=== PATIENT | female | born 1960 | race Caucasian/White ===

== ENCOUNTER 2016-09-01 09:01 | Emergency (ER) | payer OTHER ==
[~2016-09-01] VITALS: Ht 167.6 cm; Wt 104.3 kg
[2016-09-01] MEDS ORDERED: FENO50CA PO (09:27)
[2016-09-01] MEDS ORDERED: TRAM50TA2 PO (09:27)
[2016-09-01] MEDS ORDERED: ATOR40TA PO (09:27)
[2016-09-01] MEDS ORDERED: MELO7.5T6 PO (09:27)
[2016-09-01] MEDS ORDERED: AZEL0.055 (09:27)
[2016-09-01] MEDS ORDERED: MAGN400C2 PO (09:27)
[2016-09-01] MEDS ORDERED: PANT40TA2 PO (09:27)
[2016-09-01] MEDS ORDERED: ZONI100C2 PO (09:27)
[2016-09-01] MEDS ORDERED: PAME25CA PO (09:27)
[2016-09-01] MEDS: ALBUTEROL 90 MCG/ACT 8GM HFA INHALER INH ONE (10:37)
--- NOTE | 2016-09-01 10:47 | REP ---
Chest two views HISTORY: Cough Comparison: 09/15/2015 The lungs are clear. There is blunting of the left costophrenic angle due to pleural thickening. The heart is normal in size. The pulmonary vasculature is normal in appearance. The bony structure is intact. IMPRESSION: No acute disease. Signed by Fredy Moreira MD 09/01/2016 10:39 A
[2016-09-01] MEDS ORDERED: TESS100C PO (11:32)
[2016-09-01 11:38] VITALS: BP 125/81
== END 2016-09-01 11:50 | disposition home or self-care (01) ==
LOC: M ED 09:46
DX: J20.9 Acute bronchitis, unspecified (principal); Z79.899 Other long term (current) drug therapy; Z87.891 Personal history of nicotine dependence; I10 Essential (primary) hypertension; E78.00 Pure hypercholesterolemia, unspecified; K21.9 Gastro-esophageal reflux disease without esophagitis; M19.90 Unspecified osteoarthritis, unspecified site

== ENCOUNTER 2017-02-09 11:59 | Emergency (ER) | payer OTHER ==
[~2017-02-09] VITALS: Ht 167.6 cm; Wt 100.0 kg
[~2017-02-09 11:59] MED LIST: ATOR40TA75 PO; AZEL0.055; FENO50CA PO; MAGN400C2 PO; MELO7.5T7 PO; PAME25CA PO; PANT40TA2 PO; TESS100C PO; TRAM50TA2 PO; ZONI100C2 PO
[2017-02-09] MEDS ORDERED: ONDANSETRON 4MG/2ML VIAL (J2405) IV ONE (14:15)
[2017-02-09] MEDS ORDERED: MORPHINE 4 MG/ML 1ML SYRINGE IV ONE (14:15)
[2017-02-09] MEDS ORDERED: NS 1,000 ML IV ONE (14:15)
[2017-02-09 14:21] LABS: MICROSCOPIC INDICATED? MAN YES (NO)
[2017-02-09 14:22] LABS: BACTERIA, URINE MOD AMOUNT; HYALINE CAST, URINE NONE SEEN /lpf (0-1); MICROSCOPIC EXAM PERFORMED; RBC, URINE 0-1 /hpf (0-3); SQUAMOUS EPITHELIAL CELL URINE SMALL AMOUNT /hpf (SMALL AMT)
[2017-02-09 15:11] LABS: BASO # 0.1 K/mm3 (0.0-0.2); BASO % 0.5 % (0.0-1.0); EOS # 0.1 K/mm3 (0.0-0.50); EOS % 0.8 % (0.0-3.0); LARGE UNSTAINED CELL # 0.1 K/mm3 (0.0-0.4); LYMPH # 2.9 K/mm3 (1.5-4.5); LYMPH % 19.3 % (24.0-44.0); MEAN CORPUSCULAR HEMOGLOBIN 28.9 pg (27.0-33.0); MEAN CORPUSCULAR HGB CONC 34.1 g/dl (32.0-36.5); MEAN CORPUSCULAR VOLUME 84.8 fl (80.0-96.0); MONO % 6.9 % (0.0-5.0); NEUTROPHILS # 10.3 K/mm3 (1.8-7.7); NEUTROPHILS % 71.4 % (36.0-66.0); PLATELET COUNT, AUTOMATED 452 k/mm3 (150-450); RED CELL DISTRIBUTION WIDTH 13.5 % (11.5-14.5); WHITE BLOOD COUNT 14.4 K/mm3 (4.0-10.0)
[2017-02-09 15:13] LABS: ALBUMIN 3.8 GM/DL (3.2-5.2); ALBUMIN/GLOBULIN RATIO 1.03 (1.00-1.93); ALKALINE PHOSPHATASE 92 U/L (45-117); ALT/SGPT 25 U/L (12-78); AMYLASE 50 U/L (25-115); ANION GAP 9 MEQ/L (8-16); AST/SGOT 16 U/L (15-37); BILIRUBIN,DIRECT 0.1 MG/DL (0.0-0.2); BILIRUBIN,TOTAL 0.4 MG/DL (0.2-1.0); BLOOD UREA NITROGEN 12 MG/DL (7-18); CALCIUM LEVEL 9.6 MG/DL (8.5-10.1); CARBON DIOXIDE LEVEL 23 MEQ/L (21-32); CHLORIDE LEVEL 106 MEQ/L (98-107); CREATININE FOR GFR 1.01 MG/DL (0.55-1.02); GLOMERULAR FILTRATION RATE > 60.0 (>51); GLUCOSE, FASTING 102 MG/DL (70-105); POTASSIUM SERUM 4.3 MEQ/L (3.5-5.1); SODIUM LEVEL 138 MEQ/L (136-145); TOTAL PROTEIN 7.5 GM/DL (6.4-8.2)
[2017-02-09] MEDS ORDERED: ISOVUE-370 76% 100ML VIAL (Q9967) As Ordered ONE (15:20)
[2017-02-09] MEDS ORDERED: METR1TAB66 PO (18:41)
[2017-02-09] MEDS ORDERED: ONDA4TAB5 PO (18:41)
[2017-02-09] MEDS ORDERED: CIPR500T3 PO (18:41)
[2017-02-09] MEDS ORDERED: PERC5TAB12 PO (18:41)
[2017-02-09 18:51] VITALS: BP 155/77
--- NOTE | 2017-02-10 09:51 | REP ---
CT abdomen pelvis with IV but without oral contrast: History: Left lower abdominal pain. No comparison CT studies. CT contrast dose: 100 mL of intravenous Isovue 370. CT findings: Preliminary digital biometric screener radiograph demonstrates clips in right upper quadrant of the abdomen. The lung bases are clear. The liver shows mild diffuse fatty infiltration. There is a low-density area 3.5 cm in greatest diameter in the dome of the liver right hepatic lobe. This may reflect focal fat deposition or conceivably be a low density liver lesion such as hemangioma. No other focal liver lesion is seen. The common bile duct is somewhat dilated post cholecystectomy measuring 1.8 cm in diameter. Minimal intrahepatic biliary ductal dilation is observed. Spleen is unremarkable. No adrenal lesion is seen. Pancreas shows no abnormality. There are clips adjacent to the upper stomach. The kidneys enhance symmetrically are morphologically intact. No retroperitoneal mass or adenopathy is seen. There is a ventral hernia. There are two components. The larger more cephalic ventral hernia defect transmits a loop of unobstructed transverse colon through a defect in the anterior abdominal wall which measures 4.2 cm in medial to lateral span by 2.4 cm in craniocaudal span. Below this to the left of midline at the level of the umbilicus, there is a second anterior abdominal wall defect which is smaller. This transmits a small quantity of abdominal fat and contains a 2 cm fluid collection. Two loops of small bowel are seen approaching this hernia defect but not extending through it. This smaller defect appears to measure 2.4 cm craniocaudal by 2.4 cm medial to lateral. In addition, there is diverticulosis in the descending colon with mural thickening and pericolonic streaking consistent with diverticulitis. No abscess or free air. Fibroid changes seen in the uterus. A pedunculated fibroid is seen projecting to the left adnexa. A normal appendix is seen. Urinary bladder is unremarkable. No ovarian abnormality is seen. Impression: 1. Acute diverticulitis affecting the distal descending colon without evidence of free air or abscess. 2. Complex ventral hernia. One component transmits unobstructed transverse colon loop. Caudal and to the left of the umbilicus is a smaller defect containing a small quantity of fluid with possible tethering of small bowel loops. 3. Post cholecystectomy. Dilated common bile duct post cholecystectomy 1.8 cm. 4. 3.5 cm low density lesion in the right lobe of the liver may be hemangioma or focal fatty deposit. Consider MRI evaluation of the liver. Signed by Gregorio Nayak MD 02/10/2017 10:07 A
--- NOTE | 2017-02-11 20:01 | ED PDOC ---
Post-Departure Follow-Up DR HAMEED FAXED FORMAL REPORT OF CT ABD/PELVIS FOR FU Francisco Cassidy MD Feb 11, 2017 20:01
[2017-04-11] MEDS ORDERED: DOCQ100C PO (08:13)
== END 2017-02-09 18:52 | disposition home or self-care (01) ==
LOC: M ED 11:59
DX: K57.80 Diverticulitis of intestine, part unspecified, with perforation and abscess without bleeding (principal); B95.7 Other staphylococcus as the cause of diseases classified elsewhere; K43.9 Ventral hernia without obstruction or gangrene; K76.9 Liver disease, unspecified; M54.5 Low back pain; E78.00 Pure hypercholesterolemia, unspecified; Z91.49 Other personal history of psychological trauma, not elsewhere classified; Z79.899 Other long term (current) drug therapy
CPT/HCPCS: 74177; 80048; 80076; 81000; 82150; 83690; 85025; 87040; 87077; 87186; 96374; 96375; 99283; J2405; Q9967

== ENCOUNTER 2017-04-25 06:11 | Day surgery (SDC) | payer OTHER ==
[~2017-04-25] VITALS: Ht 167.6 cm; Wt 100.2 kg
[~2017-04-25 06:11] MED LIST changes: +CIPR500T3 PO; +DOCQ100C PO; +METR1TAB66 PO; +ONDA4TAB5 PO; +PERC5TAB12 PO
[2017-04-25] MEDS ORDERED: LR 1,000 ML IV ONE (06:15)
[2017-04-25] MEDS ORDERED: LIDOCAINE 2% INJ 100 MG/5 ML SDV (FOR ANES.) As Ordered ONE (07:59)
[2017-04-25] MEDS ORDERED: MIDAZOLAM INJ 2 MG/2 ML VIAL (J2250) As Ordered ONE (07:59)
[2017-04-25] MEDS ORDERED: PROPOFOL 200 MG/20 ML VIAL As Ordered ONE (07:59)
[2017-04-25] MEDS ORDERED: NEOSTIGMINE 10 MG/10 ML VIAL (J2710) As Ordered ONE (07:59)
[2017-04-25] MEDS ORDERED: ROCURONIUM BROMIDE 50 MG/5 ML VIAL/SYRINGE As Ordered ONE (07:59)
[2017-04-25] MEDS ORDERED: fentaNYL 250 MCG/5 ML INJECTION (J3010) As Ordered ONE (07:59)
[2017-04-25] MEDS ORDERED: GLYCOPYRROLATE INJ 0.2 MG/ML 2 ML VIAL As Ordered ONE (07:59)
[2017-04-25] MEDS ORDERED: ONDANSETRON 4MG/2ML VIAL (J2405) As Ordered ONE (07:59)
[2017-04-25] MEDS ORDERED: METOCLOPRAMIDE INJ 10MG/2ML VIAL (J2765) As Ordered ONE (08:00)
[2017-04-25] MEDS ORDERED: HYDROmorphone HCL 2 MG/ML 1ML VIAL (J1170) As Ordered ONE (08:32)
[2017-04-25] MEDS ORDERED: BUPIVACAINE HCL 0.25% 30 ML VIAL As Ordered ONE (09:30)
[2017-04-25] MEDS ORDERED: BUPIVACAINE LIPOSOME/PF 1.3% 20 ML VIAL (13.3MG/ML)(EXPAREL) As Ordered ONE (10:00)
[2017-04-25] MEDS ORDERED: KETOROLAC 60 MG/2 ML VIAL (J1885) As Ordered ONE (10:09)
[2017-04-25] MEDS ORDERED: MORPHINE 10 MG/ML 1ML VIAL As Ordered ONE (10:53)
[2017-04-25] MEDS: MORPHINE 2 MG/ML 1ML SYRINGE IV PRN ×4 (10:57→21:13)
[2017-04-25] MEDS ORDERED: LR 1,000 ML IV SCH (11:00)
[2017-04-25] MEDS ORDERED: fentaNYL 100 MCG/2 ML INJECTION (J3010) IV PRN (11:00)
[2017-04-25] MEDS ORDERED: ONDANSETRON 4MG/2ML VIAL (J2405) IV PRN ×2 (11:00→15:30)
[2017-04-25] MEDS ORDERED: NORCO, ANEXSIA 5/325MG TABLET (HYDROcodone/ACETAMINOPHEN) As Ordered ONE (11:06)
[2017-04-25] MEDS: NORCO, ANEXSIA 5/325MG TABLET (HYDROcodone/ACETAMINOPHEN) PO PRN ×3 (11:10→23:41)
[2017-04-25] MEDS ORDERED: ACETAMINOPHEN TAB 650MG DOSE (2X325MG) PO PRN (11:15)
[2017-04-25] MEDS ORDERED: NORCO, ANEXSIA 5/325MG TABLET (HYDROcodone/ACETAMINOPHEN) PO ONE (13:30)
[2017-04-25] MEDS ORDERED: MORPHINE 2 MG/ML 1ML SYRINGE As Ordered ONE (14:15)
[2017-04-25] MEDS: MORPHINE 2 MG/ML 1ML SYRINGE IV SCH ×2 (14:20→14:40)
[2017-04-25] MEDS ORDERED: METOCLOPRAMIDE INJ 10MG/2ML VIAL (J2765) IV PRN (15:30)
[2017-04-25 16:45] VITALS: BP 135/66
[2017-04-25] MEDS: IBUPROFEN 400 MG TAB PO PRN ×2 (19:07→23:41)
[2017-04-25 20:00] VITALS: BP 117/60
[2017-04-26] VITALS: BP 108/58
[2017-04-26] MEDS: IBUPROFEN 400 MG TAB PO PRN ×4 (03:44→16:56)
[2017-04-26] MEDS: NORCO, ANEXSIA 5/325MG TABLET (HYDROcodone/ACETAMINOPHEN) PO PRN ×4 (03:45→16:56)
[2017-04-26 04:00] VITALS: BP 102/55
[2017-04-26 08:00] VITALS: BP 113/62
[2017-04-26 12:00] VITALS: BP 114/62
--- NOTE | 2017-04-26 15:13 | IPN ---
DATE: 04/26/2017 The patient is now postoperative day #1 from a laparoscopic repair of multiple ventral incisional hernias using a piece of Parietex mesh. She was kept overnight because of significant postoperative pain. She feels better today and has been getting by with occasional Cary for pain relief. Vital signs: The patient has been afebrile with a normal pulse and blood pressure. Intake and output: She is taking a diet well and has adequate urine output today. Physical exam shows that she is lying quietly on the hospital bed. Heart and lung exams are unremarkable. The abdomen is obese with bowel sounds present. The abdomen is soft without undue tenderness. Her incisions all appear to be clean and healing well with Steri-Strips in place. IMPRESSION: Is doing well postoperative day #1 from her laparoscopic surgery. PLAN: The patient will be discharged home. She was advised against any strenuous physical activity. She can take a diet as tolerated. She will be able to shower as desired. She was advised against any prolonged immersion or swimming for at least 5 days. She has a prescription for Cary that was sent to her pharmacy that she can take on an as-needed basis, but she was encouraged to see if she could get by with [id number] medications. She is to call the office for any problems and otherwise followup at her scheduled postoperative visit.
[2017-04-26 16:00] VITALS: BP 126/69
--- NOTE | 2017-04-27 00:24 | ECGEPIP ---
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 No significant changes. L[place] is now normal. Electronically Signed On 04-27-2017 0:23:59 EST by Theo Jade
--- NOTE | 2017-04-27 07:13 | RO ---
DATE OF PROCEDURE: 04/25/2017 PREOPERATIVE DIAGNOSIS: Incarcerated ventral incisional hernia. POSTOPERATIVE DIAGNOSIS: Multiple incarcerated ventral incisional hernias with extensive adhesions. PROCEDURE PERFORMED: Laparoscopic repair of multiple ventral incisional hernias with 15 cm Parietex patch with extensive lysis of adhesions. SURGEON: Dr. Levi Henry TREE SPECIALIST: Dr. Donaldson ANESTHESIA: General. INDICATIONS FOR PROCEDURE: The patient is a 56-year-old woman who has previously undergone an upper abdominal incision for an open cholecystectomy and also had an upper midline incision for a hiatal hernia with subsequent complications. She developed a hernia through the midline scar apparently with a loop of bowel entrapped. She is now for laparoscopic and possible open repair of her ventral incisional hernia with mesh. OPERATIVE PROCEDURE: The patient was placed under general endotracheal anesthesia. The patient's abdomen was prepped and draped in a sterile fashion. 0.25% Marcaine was infiltrated at each of the trocar sites prior to insertion. A short incision was made in the right upper quadrant approximately at the level of the fascial defect. A Veress needle was inserted and after a positive hanging drop test the abdomen was inflated with carbon dioxide gas. A 5 mm port was placed over a 5 mm 30 degrees scope and advanced through the abdominal wall without difficulty. On entering the abdomen, the patient was noted to have significant adhesions of fibrofatty tissue to the anterior abdominal wall. It was possible to obtain a view inferiorly. A second 5 mm port was placed in the right lower quadrant and the camera was shifted to this area. A third 5 mm trocar was placed. This was also on the right side of the abdomen. Using a harmonic scalpel, extensive adhesions of the omentum to the anterior abdominal wall were divided. In the left midabdomen, there were a few loops of small bowel that were adherent to the anterior abdominal wall and these adhesions were also lysed and the bowel freed. As dissection proceeded to the midline, the patient was noted to have several approximately midline fascial defects with some entrapped fat. The fatty tissue was reduced into the abdomen as thoroughly as possible. Dissection toward the area of the patient's known hernia revealed a piece of bowel, apparently the transverse colon, up within the hernia. This was dissected free and reduced into the abdomen. This defect appeared to be approximately 3 cm in diameter. Additional dissection yielded another defect somewhat smaller above and to the left of the major fascial defect. There were also a few smaller areas noted. Once I had cleared the anterior abdominal wall of all of the adhesions an approximately 5-6 cm transverse incision was made over the largest fascial defect. This was deepened through the subcutaneous tissue. The hernia sac was identified and dissected free from surrounding subcutaneous tissues and removed at the level of the fascia. It was then possible to palpate through the main fascial defect. Inferior to this there were several weak areas close to the main defect. There was a shallow defect further inferior and to the left. The previously noted additional defect above and to the left of the main one was palpable and this was perhaps a centimeter and half in diameter with sound surrounding fascia. I dissected through the subcutaneous tissues at the level of the fascia to reach the defect above and to the left and this was closed with several interrupted simple sutures of #0 Ethibond. Measurements were taken and it appeared that a 15 cm patch would cover all of the palpable and visible defects. This was marked along the midline of the mesh. A suture of #0 Ethibond was placed at the midline of the largest fascial defect. In taking this suture through both sides of the defect, a small bite was taken of the underlying mesh. This was positioned to tack the mesh in the right upper corner of the mesh so that it would be positioned over the main defect and all surrounding defects as well. Several additional Ethibond sutures were placed to close this main fascial defect, although I would note that because the fascia inferior to this was somewhat weakened I did not anticipate that these would accomplish a secure closure of the fascia. The abdomen was then reinflated. The mesh was flattened over the anterior abdominal wall and it was seen that it did extend over all of the identified fascial defects with an acceptable overlap. A SecureStrap tacking device was used to tack down the mesh. Care was taken to place tacks around the periphery every 1.5 to 2 cm and additional tacks were placed across the midportion of the defect of the mesh. A second tacker was utilized for a total of 50 tacking points. The mesh utilized was a Parietex 15 cm round patch, reference number [id number], lot number [id number]. After the mesh was applied, 40 mL of Exparel consisting of 20 mL of the Exparel with 20 mL of sterile saline was infiltrated into the anterior abdominal wall anterior to the mesh. This was placed while maintaining visualization of the mesh. A small amount was also infiltrated around the incisions. After ensuring that there was no bleeding, the abdomen was deflated. The trocars were all removed. The subcutaneous tissues at the midline incision were closed with some buried Vicryl. The skin incisions were all closed with buried Vicryl sutures and Steri-Strips. The patient tolerated the procedure well without apparent complication. She was awakened in the operating room, extubated and moved to the recovery room in stable condition.
== END 2017-04-26 17:20 | disposition home or self-care (01) ==
LOC: M SDC 06:11 → M PED 17:03 → M SDC 04-26 17:20
PROVIDERS: ATTEND Surgery
DX: K43.6 Other and unspecified ventral hernia with obstruction, without gangrene (principal); E66.01 Morbid (severe) obesity due to excess calories; M12.9 Arthropathy, unspecified; E78.4 Other hyperlipidemia; K21.9 Gastro-esophageal reflux disease without esophagitis; E16.2 Hypoglycemia, unspecified; R06.02 Shortness of breath; R51 Headache; R06.83 Snoring; N39.3 Stress incontinence (female) (male); M54.5 Low back pain; R53.83 Other fatigue; Z79.899 Other long term (current) drug therapy; Z91.048 Other nonmedicinal substance allergy status; Z78.0 Asymptomatic menopausal state; Z92.3 Personal history of irradiation
CPT/HCPCS: 49653; 58660; 88302; 93000; 96374; 96376; C1781; J1170; J1885; J2250; J2405; J2710; J2765; J3010

== ENCOUNTER → 2017-11-21 | Outpatient (REF) | payer OTHER ==
[2017-11-21 12:03] LABS: HEMATOCRIT 43.2 % (36.0-47.0); HEMOGLOBIN 13.7 g/dl (12.0-15.5); MEAN CORPUSCULAR HEMOGLOBIN 27.5 pg (27.0-33.0); MEAN CORPUSCULAR HGB CONC 31.7 g/dl (32.0-36.5); MEAN CORPUSCULAR VOLUME 86.7 fl (80.0-96.0); PLATELET COUNT, AUTOMATED 373 10^3/uL (150-450); RED BLOOD COUNT 4.98 10^6/uL (4.00-5.40); RED CELL DISTRIBUTION WIDTH 13.8 % (11.5-14.5); WHITE BLOOD COUNT 8.4 10^3/uL (4.0-10.0)
[2017-11-21 12:21] LABS: ALBUMIN 3.6 GM/DL (3.2-5.2); ALBUMIN/GLOBULIN RATIO 1.06 (1.00-1.93); ALKALINE PHOSPHATASE 75 U/L (45-117); ALT/SGPT 24 U/L (12-78); ANION GAP 7 MEQ/L (8-16); AST/SGOT 20 U/L (7-37); BILIRUBIN,TOTAL 0.4 MG/DL (0.2-1.0); BLOOD UREA NITROGEN 19 MG/DL (7-18); CALCIUM LEVEL 9.2 MG/DL (8.5-10.1); CARBON DIOXIDE LEVEL 27 MEQ/L (21-32); CHLORIDE LEVEL 108 MEQ/L (98-107); CHOLESTEROL LEVEL 163 MG/DL (<200); CHOLESTEROL RISK RATIO 2.587 (<5); CREATININE FOR GFR 1.01 MG/DL (0.55-1.30); GLOMERULAR FILTRATION RATE > 60.0 (>51); GLUCOSE, FASTING 103 MG/DL (70-100); HDL CHOLESTEROL 63 MG/DL (>40); LDL CHOLESTEROL 77.4 MG/DL (<100); MAGNESIUM LEVEL 2.1 MG/DL (1.8-2.4); NON-HDL-C 100 MG/DL; POTASSIUM SERUM 4.3 MEQ/L (3.5-5.1); SODIUM LEVEL 142 MEQ/L (136-145); TRIGLYCERIDES LEVEL 113 MG/DL (<150)
[2017-11-21 12:26] LABS: TOTAL 25(OH) VITAMIN D 50.2 NG/ML (30.0-100.0)
== END ==
LOC: M SFHCCLAY 08:29
DX: K21.9 Gastro-esophageal reflux disease without esophagitis (principal); E78.4 Other hyperlipidemia; E55.9 Vitamin D deficiency, unspecified

== ENCOUNTER 2018-03-09 15:48 | Emergency (ER) | payer OTHER | END 2018-03-09 18:14 | disposition home or self-care (01) | LOC: M ED 15:48 | DX: M65.812 Other synovitis and tenosynovitis, left shoulder (principal); N63.10 Unspecified lump in the right breast, unspecified quadrant; I10 Essential (primary) hypertension; E78.00 Pure hypercholesterolemia, unspecified; K21.9 Gastro-esophageal reflux disease without esophagitis; Z87.891 Personal history of nicotine dependence; Z91.048 Other nonmedicinal substance allergy status; Z79.899 Other long term (current) drug therapy | CPT/HCPCS: 99283 ==

== ENCOUNTER → 2018-03-13 | Outpatient (CLI) | payer OTHER | LOC: M RAD 11:47 | DX: N60.31 Fibrosclerosis of right breast (principal) | CPT/HCPCS: 77066 ==

== ENCOUNTER 2018-06-21 08:38 | Day surgery (SDC) | payer OTHER ==
[~2018-06-21] VITALS: Ht 167.6 cm; Wt 101.1 kg
[~2018-06-21 08:38] MED LIST changes: +ATOR40TA75; -DOCQ100C PO; +DOCQ100C5 PO; +FENO54TA14; +FENO54TA2; +FENO54TA2 PO; +LACT10SO3; +LIDOCAINE 2% INJ 100 MG/5 ML SDV (FOR ANES.) As Ordered ONE; +LINZ290C PO; +MAG400TA; +MAGO400T PO; +METR-201 PO; -METR1TAB66 PO; +NAPR-50 PO; +NORT25CA2; +NS 1,000 ML IV ONE; -PANT40TA2 PO; +PANT40TA3; +PANT40TA3 PO; +PROPOFOL 200 MG/20 ML VIAL As Ordered ONE; +TRAM50TA2; +TROS20TA3 PO; +VITA50005; +VITA50005 PO; +[UNRECOGNIZED DRUG - OTHER] PO
--- NOTE | 2018-06-21 11:30 | ROOR ---
Patient Name: Tanna Calvin Procedure Date: 06/21/2018 11:17 AM Date of : 1960 Age: 57 Room: [facility] Gender: Female Note Status: Finalized Procedure: Upper GI endoscopy Indications: Surveillance for malignancy due to personal history of Wood's esophagus, Heartburn Providers: Prem PRINGLE MD Referring MD: Maria Elena Enriquez NP Requesting Provider: Medicines: Monitored Anesthesia Care Complications: No immediate complications. Procedure: Pre-Anesthesia Assessment: - The heart rate, respiratory rate, oxygen saturations, blood pressure, adequacy of pulmonary ventilation, and response to care were monitored throughout the procedure. The Endoscope was introduced through the mouth, and advanced to the second part of duodenum. The upper GI endoscopy was accomplished without difficulty. The patient tolerated the procedure well. Findings: The Z-line was variable and was found 37 cm from the incisors. This was biopsied with a cold forceps for evaluation to rule out Wood's Esophagus. The exam of the esophagus was otherwise normal. Evidence of a Agueda fundoplication was found in the cardia. The wrap appeared intact. This was traversed. The exam of the stomach was otherwise normal. The examined duodenum was normal. Impression: - Z-line variable, 37 cm from the incisors. Biopsied. - A Agueda fundoplication was found. The wrap appears intact. - The examination was otherwise normal Recommendation: - Continue present medications. - Repeat upper endoscopy in 3 - 5 years for surveillance based on pathology results. Prem Pringle MD Prem PRINGLE MD 06/21/2018 11:30:26 AM This report has been signed electronically. Number of Addenda: 0 Note Initiated On: 06/21/2018 11:17 AM Estimated Blood Loss: Estimated blood loss: none.
[2018-06-21] MEDS ORDERED: PROPOFOL 200 MG/20 ML VIAL As Ordered ONE (11:44)
--- NOTE | 2018-06-21 11:59 | ROOR ---
Patient Name: Tanna Calvin Procedure Date: 06/21/2018 11:18 AM Date of : 1960 Age: 57 Room: [facility] Gender: Female Note Status: Finalized Procedure: Colonoscopy Indications: Change in bowel habits, Constipation Providers: Prem SAHA MD Referring MD: Maria Elena Enriquez NP Requesting Provider: Medicines: Monitored Anesthesia Care Complications: No immediate complications. Procedure: Pre-Anesthesia Assessment: - The heart rate, respiratory rate, oxygen saturations, blood pressure, adequacy of pulmonary ventilation, and response to care were monitored throughout the procedure. The Colonoscope was introduced through the anus and advanced to the terminal ileum, with identification of the appendiceal orifice and IC valve. The colonoscopy was performed without difficulty. The patient tolerated the procedure well. The quality of the bowel preparation was good. Findings: The perianal and digital rectal examinations were normal. Two sessile polyps were found in the splenic flexure. The polyps were 4 to 6 mm in size. These polyps were removed with a cold snare. Resection and retrieval were complete. The exam was otherwise without abnormality on direct and retroflexion views. Impression: - Two 4 to 6 mm polyps at the splenic flexure, removed with a cold snare. Resected and retrieved. - Small internal hemorrhoids. - The examination was otherwise normal on direct and retroflexion views. Recommendation: - Telephone endoscopist for pathology results in 2 weeks. - Repeat colonoscopy in 5-10 years for surveillance. - Use Linzess (linaclotide) 290 mcg PO daily. Prem Saha MD Prem SAHA MD 06/21/2018 11:58:55 AM This report has been signed electronically. Number of Addenda: 0 Note Initiated On: 06/21/2018 11:18 AM Estimated Blood Loss: Estimated blood loss: none.
[2018-06-21 12:15] VITALS: BP 145/83
== END 2018-06-21 13:15 | disposition home or self-care (01) ==
LOC: M OPP 08:38
PROVIDERS: ATTEND Internal Medicine Gastroenterology
DX: R19.4 Change in bowel habit (principal); K62.5 Hemorrhage of anus and rectum; D12.3 Benign neoplasm of transverse colon; K64.8 Other hemorrhoids; R12 Heartburn; Z85.01 Personal history of malignant neoplasm of esophagus; M19.90 Unspecified osteoarthritis, unspecified site; E78.00 Pure hypercholesterolemia, unspecified; E66.9 Obesity, unspecified; Z82.49 Family history of ischemic heart disease and other diseases of the circulatory system; Z80.8 Family history of malignant neoplasm of other organs or systems; Z79.899 Other long term (current) drug therapy; Z91.048 Other nonmedicinal substance allergy status; Z98.890 Other specified postprocedural states

== ENCOUNTER → 2019-04-22 | Outpatient (REF) | payer MEDICAID, OTHER ==
[~2019-04-22] MED LIST changes: -LIDOCAINE 2% INJ 100 MG/5 ML SDV (FOR ANES.) As Ordered ONE; -METR-201 PO; +METR-265 PO; -NAPR-50 PO; +NAPR-837 PO; -NS 1,000 ML IV ONE; -PROPOFOL 200 MG/20 ML VIAL As Ordered ONE
[2019-04-22 12:55] LABS: BASO # 0.1 10^3/uL (0.0-0.2); BASO % 0.8 % (0.0-1.0); EOS # 0.2 10^3/uL (0.0-0.5); EOS % 1.8 % (0.0-3.0); HEMATOCRIT 48.1 % (36.0-47.0); HEMOGLOBIN 15.1 g/dl (12.0-15.5); LYMPH # 2.9 10^3/uL (1.5-5.0); LYMPH % 32.6 % (24.0-44.0); MEAN CORPUSCULAR HEMOGLOBIN 27.8 pg (27.0-33.0); MEAN CORPUSCULAR HGB CONC 31.4 g/dl (32.0-36.5); MEAN CORPUSCULAR VOLUME 88.4 fl (80.0-96.0); MONO # 0.9 10^3/uL (0.0-0.8); MONO % 9.9 % (0.0-5.0); NEUTROPHILS # 4.9 10^3/uL (1.5-8.5); NEUTROPHILS % 54.3 % (36.0-66.0); PLATELET COUNT, AUTOMATED 316 10^3/uL (150-450); RED BLOOD COUNT 5.44 10^6/uL (4.00-5.40)
[2019-04-22 13:26] LABS: ALBUMIN 3.6 GM/DL (3.2-5.2); ALT/SGPT 22 U/L (12-78); BILIRUBIN,TOTAL 0.3 MG/DL (0.2-1.0); BLOOD UREA NITROGEN 15 MG/DL (7-18); CALCIUM LEVEL 9.4 MG/DL (8.5-10.1); CARBON DIOXIDE LEVEL 27 MEQ/L (21-32); CHLORIDE LEVEL 108 MEQ/L (98-107); CHOLESTEROL LEVEL 304 MG/DL (<200); CHOLESTEROL RISK RATIO 4.825 (<5); CREATININE FOR GFR 0.94 MG/DL (0.55-1.30); GLOMERULAR FILTRATION RATE > 60.0 (>51); GLUCOSE, FASTING 91 MG/DL (70-100); HDL CHOLESTEROL 63 MG/DL (>40); LDL CHOLESTEROL 201 MG/DL (<100); MAGNESIUM LEVEL 1.9 MG/DL (1.8-2.4); NON-HDL-C 241 MG/DL; POTASSIUM SERUM 4.5 MEQ/L (3.5-5.1); SODIUM LEVEL 143 MEQ/L (136-145); TOTAL PROTEIN 7.1 GM/DL (6.4-8.2); TRIGLYCERIDES LEVEL 198 MG/DL (<150)
[2019-04-22 13:32] LABS: TOTAL 25(OH) VITAMIN D 24.4 NG/ML (30.0-100.0)
== END ==
LOC: M SFHCCLAY 08:52
PROVIDERS: ATTEND Family Medicine
DX: E78.2 Mixed hyperlipidemia (principal); K21.9 Gastro-esophageal reflux disease without esophagitis; E55.9 Vitamin D deficiency, unspecified; E83.42 Hypomagnesemia

== ENCOUNTER → 2020-05-15 | Outpatient (CLI) | payer OTHER ==
[~2020-05-15] MED LIST changes: +ONDA-83 PO; -ONDA4TAB5 PO; +PANT40TA29; +PANT40TA29 PO; -PANT40TA3; -PANT40TA3 PO; +ZONI100C17 PO; -ZONI100C2 PO
== END ==
LOC: M LABSMTC 09:32
PROVIDERS: ATTEND Orthopaedic Surgery
DX: Z01.812 Encounter for preprocedural laboratory examination (principal); Z20.828 Contact with and (suspected) exposure to other viral communicable diseases

== ENCOUNTER → 2020-06-20 | Outpatient (CLI) | payer SELFPAY | LOC: M LABSMTC 08:44 | PROVIDERS: ATTEND Pediatrics | DX: Z20.822 Contact with and (suspected) exposure to COVID-19 (principal) ==

== ENCOUNTER 2020-07-17 08:37 | Inpatient (IN) | payer OTHER ==
[~2020-07-17] VITALS: Ht 167.6 cm; Wt 100.0 kg
[~2020-07-17 08:37] MED LIST changes: -MAG400TA; +MAGN400T35
--- OUTSIDE RECORDS SUMMARY | 2020-07-17 08:44 | CCD ---
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 Name Role Phone Jami Anna Unavailable PROBLEMS Type Condition ICD9-CM Code AGM94-KS Code Onset Dates Condition S tatus SNOMED Code Notes Problem Menopausal and female climacteric states N95.1 Active 996194832 Problem Allergic rhinitis, unspecified J30.9 Active 6 9969746 Problem Diverticulitis K57.92 Active 144533272 Problem Low back pain M54.5 Active 375233063 Problem Vitamin D deficiency, unspecified E55.9 Active 09242114 Problem Multiple chronic diseases R69 Active 894921 1631473 Problem Headache R51 Active 71243866 Problem Gastro-esophageal reflux disease without esophagitis K21.9 Active 982715115 Problem Other hyperlipidemia E78.4 Active 11957719 Problem Abnormal mammogram R92.8 Active 833997118 Problem Abnormal immunological finding in serum, unspecified R76.9 Active 108761299 Problem Dyslipidemia E78.5 Active 799713293 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 Active 253339799 Problem Hypomagnesemia E83.42 Active 886304924 Problem Mixed hyperlipidemia E78.2 Active 889905528 Problem Chronic depression F32.9 Active 343242128 Problem Vitamin D deficiency E55.9 Active 41777287 ALLERGIES No Known Allergies ENCOUNTERS from 1960 to 2020-07-10 Encounter Location Date Provider Diagnosis [facility] [address] [place] [address] 27 Jun, 2020 Jami Anna IMMUNIZATIONS Vaccine Route Administration Date Status Influenza (18 yrs & older) Flublok IM Intramuscular Apr 22, 2019 Administered Influenza (6mo & up) Fluzone Unknown Jun 01, 2018 Adm inistered Influenza (6mo & up) Fluzone IM Intramuscular May 13, 2015 Ad ministered Influenza (6mo & up) Fluzone IM Intramuscular Apr 22, 2014 Ad ministered Influenza (6mo & up) Fluzone IM Intramuscular Mar 22, 2013 Ad ministered SOCIAL HISTORY Tobacco Use: Social History Observation Description Date Details (start date - stop date) Former Smoker Sex Assigned At : Social History Observation Description Sex Assigned At Unknown Education: Question Answer Notes Level of Education: Not finished High School -GED Audit Question Answer Notes Total Score: 1 Interpretation: Alcohol Education Sexual Hx: Question Answer Notes Had sex in the last 12 months (vaginal, oral, or anal)? No LMP: 2010 Have you ever had an STD? No Drug and Alcohol Question Answer Notes Total Score: 0 Interpretation: No problems reported BMI Care Goal Follow-Up Question Answer Notes Above Normal BMI Follow-Up Dietary management educatio n, guidance, and counseling Tobacco Use: Question Answer Notes Are you a: former smoker former smoker/quit 1 983 /updated 08/08/2019 Additional Findings: Tobacco Non-User Current non-smoker How long has it been since you last smoked? > 10 years REASON FOR REFERRAL No Information VITAL SIGNS No information MEDICATIONS Medication SIG (Take, Route, Frequency, Duration) Notes Start Da te End Date Status Fenofibrate 54 MG 1 tablet with a meal Orally Once a day for 30 Days Active Trospium Chloride 20 MG 1 tab Orally bid for 30 Days Active Tramadol HCl 50 MG 1 tablet as needed Orally tid prn MDD=3 for 7 day (s) Active Amitiza 24 MCG 1 capsule with food and water Orally Twice a day Nov, Active Magnesium Oxide 400 (241.3 Mg) MG 1 tablet with food orally Daily Active Nortriptyline HCl 25 mg 1 capsule Orally Once a day for 30 Days Active Escitalopram Oxalate 10 MG 1 tablet Orally Once a day for 30 Not-Taking Nystatin 731984 UNIT/GM 1 application Externally twice daily as neede d Active Drisdol 28613 UNIT 1 capsule Orally weekly Active Atorvastatin Calcium 40 mg 1 tablet Orally Once a day for 30 Days Active Ibuprofen 600 MG 1 tablet with food or milk a s needed Orally Three times a day for 10 day(s) Dec, Active Pantoprazole Sodium 40 mg 1 tablet Orally Once a day for 30 Days Active DocQLace 100 MG TAKE ONE CAPSULE BY MOUTH TWICE A DAY for 90 Active Escitalopram Oxalate 20 MG 1 tablet Orally Once a day for 30 Active Zonisamide 100 mg 1 capsule Orally Twice a day for 30 Days Active PROCEDURES No Information RESULTS No Results REASON FOR VISIT US Disc request from [place] MEDICAL (GENERAL) HISTORY Type Description Date Medical History LOW BACK PAIN Medical History DEGENERATIVE DISC DISEASE Medical History BILATERAL CARPAL TUNNEL-ORTHOPEDICS Medical History GERD Medical History HIATAL HERNIA Medical History ELEVATED CHOLESTEROL Medical History STRESS INCONTINENCE-UROLOGY Medical History ALLERGIC RHINITIS Medical History INCISIONAL HERNIA Medical History GASTROPARESIS Medical History Diverticulitis Medical History Rotator cuff tear left shoulder-sees [facility] Surgical History HERNIA REPAIR - UMBILICAL AGE 9 Surgical History PANCREATITUS FROM GALLBLADDER SURGERY Surgical History ACID REFLUX SURGERY - FOLLOW ED BY LACERATED LIVER, AND HOLE IN STOMACH 1996 Surgical History CARPAL TUNNEL ON RIGHT WRIST 1989 Surgical History colonoscopy upper endoscopy [facility] 015 Surgical History tubal ligation 1983 Surgical History Hernia repair 04/2017 Surgical History Injection left shoulder for rotator cuff tear 12/2018 Surgical History Left Rotator cuff repair 05/20/2020 Hospitalization History surgery Goals Section No Information Health Concerns No Information MEDICAL EQUIPMENT No Information MENTAL STATUS No Information FUNCTIONAL STATUS No Information ASSESSMENTS No Information PLAN OF TREATMENT Next Appt Details Provider Name:Maria Elena Enriquez, 2020-07-31 11:00:00 AM, [address], [place], [address], Insurance Providers Payer Name Payer Address Payer Phone Insured Name Patient Relati onship to Insured Coverage Start Date Coverage End Date [facility] [employer] DEPT [address] [place] [phone] MATTHEW VALADEZ self
--- OUTSIDE RECORDS SUMMARY | 2020-07-17 08:44 | CCD | Continuity of Care Document ---
Author Author Tanna MATTHEWS DPM Organization Unknown Address [address] [place] [address], [facility] 2 [place] [address] Phone [phone] Care Team Providers Care Mechanical Estimator Name Role Phone Maria Elena Enriquez NP [phone] Problems Active Problems Provider Date Plantar fascial fibromatosis Anders Matthews DPM Onset: 07/2019 Calcaneal spur Anders Matthews DPM Onset: 04/13/2020 Social History Type Date Description Comments Sex Unknown ETOH Use Denies alcohol use Tobacco Use Start: Unknown End: Unknown Patient is a former smoker stopped 30 years ago, 1/2 pack daily Allergies, Adverse Reactions, Alerts Description No Known Drug Allergies Medications Active Medications SIG Qnty Indications Ordering Provide r Date Naproxen 500mg Tablets 1 tab twice daily with food 60tabs Anders Matthews DPM 04/10/2020 Albuterol Sulfate HFA 108(90Base) mcg/Act Aerosol Inhale Two Puffs By Mouth Every 4 Hours as Directed Unknown Azithromycin 250mg Tablets Unknown Prednisone 20mg Tablets Take Three Tablets By Mouth Every Day Unknown Nystatin 420438Kivh/GM Powder Apply To Affected Area S Two Times A Day as Needed Unkno wn Ibuprofen 600mg Tablets Take One Tablet By Mouth Three Times A Day as Needed With Food Or Milk Unknown Amitiza 24mcg Capsules Take One Capsule By Mouth Twice A Day With Food And Water Unknown Vitamin D (Ergocalciferol) 1.25mg (16602 Ut) Capsules Darien Rivers M.D. Magnesium Oxide 400(241.3Mg) mg Tablets Maria Elena Enriquez NP Escitalopram Oxalate 20mg Tablets Mina STEAM TANK OPERATOR,Maria Elena Dok 100mg Capsules Mina STEAM TANK OPERATOR,Maria Elena Trospium Chloride 20mg Tablets Take One Tablet By Mouth Twice A Day Unknown Zonisamide 100mg Capsules Take One Capsule By Mouth Twice A Day Unknown Pantoprazole Sodium 40mg Tablets D R Take One Tablet By Mouth Every Day Unknown Nortriptyline HCL 25mg Capsules Take One Capsule By Mouth Every Day Unknown Fenofibrate 54mg Tablets Take One Tablet By Mouth Every Day With A Meal Unknown 0 Escitalopram Oxalate 10mg Tablets Take One Tablet By Mouth Every Day Unknown Atorvastatin Calcium 40mg Tablets Take One Tablet By Mouth Every Day Unknown Tramadol HCL 50mg Tablets Take One Tablet By Mouth Three Times A Day as Needed Maximum Daily Dose 3 Tablets Unknown History Medications No Active Medications Unknown - 04/10/2020 Immunizations Description No Information Available Vital Signs Date Vital Result Comment 04/10/2020 9:44am Height 66 inches 5'6" Weight 219.00 lb BP Systolic 118 mmHg BP Diastolic 81 mmHg Heart Rate 92 /min BMI (Body Mass Index) 35.3 kg/m2 Results Description No Information Available Procedures Date Code Description Status 04/10/2020 67248 X-Ray Foot Complete Completed 04/10/2020 69686 Strapping Foot Or Ankle Complete d Medical Devices Description No Information Available Encounters Type Date Location Provider Dx Diagnosis Office Visit 04/24/2020 3:00p [place] [facility] Anders Matthews DPM M72.2 Plantar fascial fibromatosis Office Visit 04/10/2020 2:15p [place] [facility] Anders Matthews DPM M72.2 Plantar fascial fibromatosis M77.31 Calcaneal spur, right foot Assessments Date Code Description Provider 05/06/2020 M72.2 Plantar fascial fibromatosis And alexia Matthews DPM 05/06/2020 M77.31 Calcaneal spur, right foot Amol Matthews DPM 05/06/2020 M77.32 Calcaneal spur, left foot Anders Matthews DPM 04/24/2020 M72.2 Plantar fascial fibromatosis And alexia Matthews DPM 04/10/2020 M72.2 Plantar fascial fibromatosis And alexia Matthews DPM 04/10/2020 M77.31 Calcaneal spur, right foot Amol Matthews DPM Plan of Treatment Future Appointment(s):* 07/17/2020 10:00 am - Anders Matthews DPM at [facility] Functional Status Description No Information Available Mental Status Description No Information Available Referrals Refer to Reason for Referral Status Appt Date Anders Matthews DPM Created [address] [address] [phone] Anders Matthews DPM Created [address] [address] [phone] Anders Matthews DPM Created [address] [address] [phone]
--- OUTSIDE RECORDS SUMMARY | 2020-07-17 08:44 | CCD | Continuity of Care Document ---
Author Author Tanna MATTHEWS DPM Organization Unknown Address [address] [place] [address], [facility] 2 [place] [address] Phone [phone] Care Team Providers Care Natural Resources Instructor Name Role Phone Maria Elena Enriquez NP [phone] Problems Active Problems Provider Date Plantar fascial [...] Tablets By Mouth Every Day Unknown Nystatin 282371Whlb/GM Powder Apply To Affected Area S Two Times A Day as Needed Unkno wn Ibuprofen 600mg Tablets Take One Tablet By Mouth Three Times A Day as Needed With Food Or Milk Unknown Amitiza 24mcg Capsules Take One Capsule By Mouth Twice A Day With Food And Water Unknown Vitamin D (Ergocalciferol) 1.25mg (13715 Ut) Capsules Darien Rivers M.D. Magnesium Oxide 400(241.3Mg) mg Tablets Maria Elena Enriquez NP Escitalopram Oxalate 20mg Tablets Mina CASE MANAGEMENT COORDINATOR,Maria Elena Dok 100mg Capsules Mina CASE MANAGEMENT COORDINATOR,Maria Elena Trospium Chloride 20mg Tablets Take One [...] Available Procedures Date Code Description Status 04/10/2020 01302 X-Ray Foot Complete Completed 04/10/2020 16256 Strapping Foot Or Ankle Complete d Medical Devices Description No Information Available Encounters Type Date Location Provider Dx Diagnosis Office Visit 04/24/2020 3:00p [place] [facility] Anders Matthews DPM M72.2 Plantar fascial fibromatosis Office Visit 04/10/2020 2:15p [place] [facility] Anders Matthews DPM M72.2 Plantar fascial [...] 10:00 am - Anders Matthews DPM at [facility] Functional Status Description No Information Available Mental Status Description No Information Available Referrals Refer to Reason for Referral Status Appt Date Anders Matthews DPM Created [address] [address] [phone] Anders Matthews DPM Created [address] [address] [phone] Anders Matthews DPM Created [address] [address] [phone]
--- OUTSIDE RECORDS SUMMARY | 2020-07-17 08:44 | CCD | Continuity of Care Document ---
Author Author Tanna WHITT [facility] Organization Unknown Address [address] [place] [address] Phone [phone] Care Team Providers Care Family Court Counsellor Name Role Phone Maria Elena Enriquez RNNP AUTM [phone] Problems Description No Information Available Social History Type Date Description Comments Sex Unknown ETOH Use Denies alcohol use Tobacco Use Start: Unknown Denies Smoking Allergies, Adverse Reactions, Alerts Description No Known Drug Allergies Medications Active Medications SIG Qnty Indications Ordering Provide r Date Naproxen 375mg Tablets take one tablet by mouth twice a day after meals 120tabs Z47.89 Anders Nixon MD 05/29/2020 Percocet 5-325mg Tablets Take 1 tablet by mouth every 12 hours for pain, MDD 2 10tabs Matt dillon MD 04/08/2020 [place] Contin 15mg Tablets ER 1 tab by mouth every 12 hours as needed / post surgical pain. (please do not fill utnil 05/20/2020). 4tabs Anders Nixon MD 0 Prednisone 20mg Tablets Parag Coffman PA Azithromycin 250mg Tablets Take One Tablet By Mouth Every Day Unknown Albuterol Sulfate HFA 108(90Base) mcg/Act Aerosol Parag Coffman PA Nystatin 293368Yelp/GM Powder Apply To Affected Area S Two Times A Day as Needed Unkno wn Ibuprofen 600mg Tablets Take One Tablet By Mouth Three Times A Day as Needed With Food Or Milk Unknown Amitiza 24mcg Capsules Take One Capsule By Mouth Twice A Day With Food And Water Unknown Atorvastatin Calcium 40mg Tablets Darien Rivers MD Pantoprazole Sodium 40mg Tablets Darien Hernandez MD Trospium Chloride 20mg Tablets Take One Tablet By Mouth Twice A Day Unknown Zonisamide 100mg Capsules Take One Capsule By Mouth Twice A Day Unknown Nortriptyline HCL 25mg Capsules Take One Capsule By Mouth Every Day Unknown Fenofibrate 54mg Tablets Take One Tablet By Mouth Every Day With A Meal Unknown 0 Escitalopram Oxalate 10mg Tablets Take One Tablet By Mouth Every Day Unknown Vitamin D (Ergocalciferol) 1.25mg (42182 Ut) Capsules Darien Rivers MD Tramadol HCL 50mg Tablets Take One Tablet By Mouth Three Times A Day as Needed Max 3Tabs/Day Unknown Magnesium Oxide 400(241.3Mg) mg Tablets Maria Elena Enriquez RNNP Escitalopram Oxalate 20mg Tablets Maria Elena Enriquez RNNP Dok 100mg Capsules Maria Elena Enriquez RNNP Immunizations Description No Information Available Vital Signs Date Vital Result Comment 01/02/2018 10:10am Body Temperature 97.9 F Height 66 inches 5'6" Weight 229.00 lb BMI (Body Mass Index) 37.0 kg/m2 Results Test Acquired Date Facility Test Result H/L Range Note Laboratory test finding [facility] [address] [place] [address] (315)- - Coronavirus 2019 Nasopharygeal This nucleic aci <SEE NOTE> 1 1 This nucleic acid amplificat ion test was developed and its performance characteristics determined by [facility]. Nucleic acid amplification tests include PCR and TMA. This test has not been FDA cleared or approved. This test has been authorized by FDA under an Emergency Use Authorization (EUA). This test is only authorized for the duration of time the declaration that circumstances exist justifying the authorization of the emergency use of in vitro diagnostic tests for detection of SARS-CoV-2 virus and/or diagnosis of COVID-19 infection under section 564(b)(1) of the Act, 21 U.S.C. 360bbb-3 (b) (1), unless the authorization is terminated or revoked sooner. When diagnostic testing is negative, the possibility of a false negative result should be considered in the context of a patient's recent exposures and the presence of clinical signs and symptoms consistent with COVID-19. An individual without symptoms of COVID-19 and who is not shedding SARS-CoV-2 virus would expect to have a negative (not detected) result in this assay. Performed at: [facility] [address], [place], [place] [id number] French Binding Folder: Maeve Mcfadden PhD, Phone: [phone] Not Detected Procedures Date Code Description Status 06/17/2020 51047 Therapeutic Procedure, Each 15 M inutes Completed 06/17/2020 23130 Hot Or Cold Packs Completed 06/15/2020 33511 Therapeutic Procedure, Each 15 M inutes Completed 06/15/2020 02393 Hot Or Cold Packs Completed 06/02/2020 21724 Physical Therapy Eval - Low Comp lexity Completed 05/20/2020 25091 Arthroscopy Shoulder Surgical Wi th Rotator Cuff Repair Completed 05/20/2020 64131 Arthroscopy Shoulder Decompress Subacromial Part Acromioplasty Completed 04/30/2020 30126 Therapeutic Procedure, Each 15 M inutes Completed 04/30/2020 08731 Hot Or Cold Packs Completed 04/24/2020 24959 Physical Therapy Eval - Low Comp lexity Completed Medical Devices Description No Information Available Encounters Type Date Location Provider Dx Diagnosis Office Visit 05/29/2020 10:00a Loni Nixon MD Z47. 89 Encounter for other orthopedic aftercare Office Visit 03/24/2020 3:15p Loni Nixon MD M75. 112 Incomplete rotatr-cuff tear/ruptr of l shoulder, not trauma M19.012 Primary osteoarthritis, left shoulder Office Visit 02/11/2020 1:15p Loni Jackson PA-C M75.112 Incomplete rotatr-cuff tear/ruptr of l shoulder, not trauma M19.012 Primary osteoarthritis, left shoulder Assessments Date Code Description Provider 06/17/2020 Z47.89 Encounter for other orthopedic a ftercbobby Whitt PTA 06/15/2020 Z47.89 Encounter for other orthopedic a ftercare [facility] 06/02/2020 Z47.89 Encounter for other orthopedic a ftercare James Sheehan P.T. 05/29/2020 Z47.89 Encounter for other orthopedic a ftercare Anders Nixon MD 05/20/2020 M75.112 Incomplete rotator c uff tear or rupture of left shoulder, not specified as traumatic Anders Nixon MD 05/20/2020 M75.42 Impingement syndrome of left robson ulder Anders Nixon MD 05/18/2020 M75.112 Incomplete rotator c uff tear or rupture of left shoulder, not specified as traumatic Anders Nixon MD 05/18/2020 M75.42 Impingement syndrome of left robson ulder Anders Nixon MD 04/30/2020 M75.112 Incomplete rotator c uff tear or rupture of left shoulder, not specified as traumatic Candi Whitt, SHIP SCRAPER 04/30/2020 M19.012 Primary osteoarthritis, left robson ulder Candi Whitt, SHIP SCRAPER 04/24/2020 M75.112 Incomplete rotator c uff tear or rupture of left shoulder, not specified as traumatic Ellen Membreno, [facility] 04/24/2020 M19.012 Primary osteoarthritis, left robson ulder Ellen Mario Membreno, [facility] 03/24/2020 M75.112 Incomplete rotator c uff tear or rupture of left shoulder, not specified as traumatic Anders Nixon MD 03/24/2020 M19.012 Primary osteoarthritis, left robson ulder Anders Nixon MD 02/11/2020 M75.112 Incomplete rotator c uff tear or rupture of left shoulder, not specified as traumatic Birgit Jackson PA-C 02/11/2020 M19.012 Primary osteoarthritis, left robson ulder Birgit Jackson PA-C Plan of Treatment Future Appointment(s):* 07/01/2020 10:00 am - Anders Nixon MD at [place] Functional Status Description No Information Available Mental Status Description No Information Available Referrals Refer to Reason for Referral Status Appt Date Anders Nixon MD PT - 8 VISITS OK'D FOR L KERRI BARNES FROM 06/12-09/10/20, RESP #[id number]. SS Created [address] [place] [address] [phone] Anders Nixon MD SURGERY PER GISELE Patel AT [facility] ([address], [address]) HAS SACHA APPROVED CODES (23956 AND 16542) NO AUTH REQUIRED TO SURGERY NT Created [address] [place] [address] [phone] Anders Nixon MD PT - 10 VISITS GOOD FOR L SH LDR FROM 04/27-06/11/20, AUTH #[id number], RES #[id number]. SS Created [facility] [place] [address] [phone] Anders Nixon MD PT NO AUTH REQUIRED FOR 1 EV AL THEN PT CALL [phone] PASSED TO PT DEPT. LD Closed [address] [place] [address] [phone] Anders Nixon MD L3670 Arc 2.0 Pillow - Left No author ization required; Created [address] [place] [address] [phone] Anders Nixon MD PT ALLOWED EVAL THEN NEEDS A [facility] [phone] AND FAX([phone]) TO PT DEPT. NT Created [facility] [place] [address] [phone]
--- OUTSIDE RECORDS SUMMARY | 2020-07-17 08:44 | CCD | Continuity of Care Document ---
Author Author Tanna MEMBRENO MSPT Organization Unknown Address [address] [place] [address], [address] [address] Phone [phone] Care Team Providers Care Claim Processor Name Role Phone Maria Elena Enriquez RNNP AUTM [phone] Problems Description No Information Available Social History [...] 108(90Base) mcg/Act Aerosol Parag Coffman PA Nystatin 608286Btii/GM Powder Apply To Affected Area S Two [...] Every Day Unknown Vitamin D (Ergocalciferol) 1.25mg (56458 Ut) Capsules Darien Rivers MD Tramadol HCL [...] H/L Range Note Laboratory [facility] [address] [place] [address] (315)- - Coronavirus 2019 Nasopharygeal This nucleic aci <SEE NOTE> 1 1 This nucleic acid amplificat ion test was developed and its performance characteristics determined by [facility]. Nucleic acid amplification tests include PCR and [...] detected) result in this assay. Performed at: [facility] [address], [place], [place] [id number] Resort Desk Clerk: Maeve Mcfadden PhD, Phone: [phone] Not Detected Procedures Date Code Description Status 06/17/2020 24396 Therapeutic Procedure, Each 15 M inutes Completed 06/17/2020 81561 Hot Or Cold Packs Completed 06/15/2020 50186 Therapeutic Procedure, Each 15 M inutes Completed 06/15/2020 06980 Hot Or Cold Packs Completed 06/02/2020 70819 Physical Therapy Eval - Low Comp lexity Completed 05/20/2020 33534 Arthroscopy Shoulder Surgical Wi th Rotator Cuff Repair Completed 05/20/2020 57206 Arthroscopy Shoulder Decompress Subacromial Part Acromioplasty Completed 04/30/2020 57334 Therapeutic Procedure, Each 15 M inutes Completed 04/30/2020 88900 Hot Or Cold Packs Completed 04/24/2020 67990 Physical Therapy Eval - Low Comp lexity [...] 06/17/2020 Z47.89 Encounter for other orthopedic a ftercare Candi Whitt, JIMMY 06/15/2020 Z47.89 Encounter for other orthopedic a ftercare Ellenludwin Membreno, [facility] 06/02/2020 Z47.89 Encounter for other orthopedic a ftercare James Sheehan P.T. 05/29/2020 Z47.89 Encounter for other orthopedic a ftercare Anders Nixon MD 05/20/2020 M75.112 Incomplete rotator c uff tear or rupture of left shoulder, not specified as traumatic Anders Nixon MD 05/20/2020 M75.42 Impingement syndrome of left robson ulwerner Anders Nixon MD 05/18/2020 M75.112 Incomplete rotator c uff tear or rupture of left shoulder, not specified as traumatic Anders Nixon MD 05/18/2020 M75.42 Impingement syndrome of left robson ulder Anders Nixon MD 04/30/2020 M75.112 Incomplete rotator c uff tear or rupture of left shoulder, not specified as traumatic Candi Whitt, HAND GLASS CUTTER 04/30/2020 M19.012 Primary osteoarthritis, left robson ulder Candi Whitt, HAND GLASS CUTTER 04/24/2020 M75.112 Incomplete rotator c uff tear or rupture of left shoulder, not specified as traumatic Ellen Martin Haseeb, [facility] 04/24/2020 M19.012 Primary osteoarthritis, left robson ulder Ellen Martin Haseeb, [facility] 03/24/2020 M75.112 Incomplete rotator c [...] 10:00 am - Anders Nixon MD at [place] Functional Status Description No Information Available Mental Status Description No Information Available Referrals Refer to Reason for Referral Status Appt Date Anders Nixon MD PT - 8 VISITS OK'D FOR L L FROM 06/12-09/10/20, RESP #[id number]. SS Created [address] [place] [address] [phone] Anders Nixon MD SURGERY PER GISELE Patel AT [facility] ([address], [address]) HAS SACHA APPROVED CODES (72705 AND 05220) NO AUTH REQUIRED TO SURGERY NT Created [facility] [place] [address] [phone] Anders Nixon MD PT - 10 VISITS GOOD FOR L SH LDR FROM 04/27-06/11/20, AUTH #[id number], RES #[id number]. SS Created [facility] [place] [address] [phone] Anders Nixon MD PT NO AUTH REQUIRED FOR 1 EV AL THEN PT CALL [phone] PASSED TO PT DEPT. LD Closed [address] [place] [address] [phone] Anders Nixon MD L3670 Arc 2.0 Pillow - Left No author ization required; Created [address] [place] [address] [phone] Anders Nixon MD PT ALLOWED EVAL THEN NEEDS A [facility] [phone] AND FAX([phone]) TO PT DEPT. NT Created [facility] [address] [phone]
--- OUTSIDE RECORDS SUMMARY | 2020-07-17 08:44 | CCD | Continuity of Care Document ---
Author Author Tanna MEMBRENO MSPT Organization Unknown Address [address] [place] [address], [address] [address] Phone [phone] Care Team Providers Care Tv Host Name Role Phone Maria Elena Enriquez ERICANP AUTM [phone] Problems Description No Information Available Social History Type Date Description Comments Sex Unknown ETOH Use Denies alcohol use Tobacco Use Start: Unknown Denies Smoking Allergies, Adverse Reactions, Alerts Description No Known Drug Allergies Medications Active Medications SIG Qnty Indications Ordering Provide r Date Naproxen 375mg Tablets take one tablet by mouth twice a day after meals 120tabs Z47.89 Anders Nixon MD 05/29/2020 Prednisone 20mg Tablets Parag Coffman PA Azithromycin 250mg Tablets Take One Tablet By Mouth Every Day Unknown Albuterol Sulfate HFA 108(90Base) mcg/Act Aerosol Parag Coffman PA Nystatin 297819Wobi/GM Powder Apply To Affected Area S Two [...] Every Day Unknown Vitamin D (Ergocalciferol) 1.25mg (41536 Ut) Capsules Darien Rivers MD Tramadol HCL 50mg Tablets Take One Tablet By Mouth Three Times A Day as Needed Max 3Tabs/Day Unknown Magnesium Oxide 400(241.3Mg) mg Tablets Maria Elena Enriquez RNNP Escitalopram Oxalate 20mg Tablets Maria Elena Enriquez RNNP Dok 100mg Capsules Maria Elena Enriquez RNNP History Medications Oxycodone-Acetaminophen 5-325mg Ta blets 1 tab daily as needed 20tabs Z47.89 Anders Nixon MD 07/01 - 07/15/2020 Percocet 5-325mg Tablets Take 1 tablet by mouth every 12 hours for pain, MDD 2 10tabs Matt dillon MD 04/08/2020 - 07/01/2020 MS Contin 15mg Tablets ER 1 tab by mouth every 12 hours as needed / post surgical pain. (please do not fill utnil 05/20/2020). 4tabs Anders Nixon MD 0 - 07/15/2020 Immunizations Description No Information Available Vital Signs Date Vital Result Comment 07/01/2020 9:57am Body Temperature 96.8 F Height 66 inches 5'6" Weight 220.00 lb BMI (Body Mass Index) 35.5 kg/m2 01/02/2018 10:10am Body Temperature 97.9 F Height 66 inches 5'6" Weight 229.00 lb BMI (Body Mass Index) 37.0 kg/m2 Results Test Acquired Date Facility Test Result H/L Range Note Laboratory test finding 05/15/2020 [facility] [address] [place] [address] (315)- - Coronavirus 2019 Nasopharygeal This nucleic aci <SEE NOTE> 1 1 This nucleic acid amplificat ion test was developed and its performance characteristics determined by [employer]. Nucleic acid amplification tests include PCR and [...] detected) result in this assay. Performed at: [facility] [address], [place], [place] [id number] Transitions Manager: Maeve Mcfadden PhD, Phone: [phone] Not Detected Procedures Date Code Description Status 07/10/2020 23067 Therapeutic Procedure, Each 15 M inutes Completed 07/06/2020 48514 Therapeutic Procedure, Each 15 M inutes Completed 07/06/2020 02858 Hot Or Cold Packs Completed 06/17/2020 03005 Therapeutic Procedure, Each 15 M inutes Completed 06/17/2020 87827 Hot Or Cold Packs Completed 06/15/2020 74179 Therapeutic Procedure, Each 15 M inutes Completed 06/15/2020 10409 Hot Or Cold Packs Completed 06/02/2020 29060 Physical Therapy Eval - Low Comp lexity Completed 05/20/2020 12982 Surgical Arthroscopy Shoulder W/ Rotator Cuff RPR Completed 05/20/2020 75321 Surgical Arthroscopy Robson W/Corac oacrm Ligm RLS Completed 04/30/2020 27451 Therapeutic Procedure, Each 15 M inutes Completed 04/30/2020 19869 Hot Or Cold Packs Completed 04/24/2020 79972 Physical Therapy Eval - Low Comp lexity Completed Medical Devices Description No Information Available Encounters Type Date Location Provider Dx Diagnosis Office Visit 07/01/2020 10:00a Loni Nixon MD Z47. 89 Encounter for other orthopedic aftercare Office Visit 05/29/2020 10:00a Loni Nixon MD Z47. 89 Encounter for other orthopedic aftercare Office Visit 03/24/2020 3:15p Loni Nixon MD M75. 112 Incomplete rotatr-cuff tear/ruptr of l shoulder, not trauma M19.012 Primary osteoarthritis, left shoulder Office Visit 02/11/2020 1:15p Loni Jackson PA-C M75.112 Incomplete rotatr-cuff tear/ruptr of l shoulder, not trauma M19.012 Primary osteoarthritis, left shoulder Assessments Date Code Description Provider 07/10/2020 Z47.89 Encounter for other orthopedic a ftercare Ellen Membreno, MSPT 07/06/2020 Z47.89 Encounter for other orthopedic a ftercare Ellen Membreno, MSPT 07/01/2020 Z47.89 Encounter for other orthopedic a ftercare Anders Nixon MD 06/17/2020 Z47.89 Encounter for other orthopedic a ftercare Candi Phippse, MEDICAL ONCOLOGY PHYSICIAN 06/15/2020 Z47.89 Encounter for other orthopedic a ftercare Ellen Membreno, MSPT 06/02/2020 Z47.89 Encounter for other orthopedic a ftercare James Sheehan P.T. 05/29/2020 Z47.89 Encounter for other orthopedic a ftercare Anders Nixon MD 05/20/2020 M75.112 Incomplete rotator c uff tear or rupture of left shoulder, not specified as traumatic Anders Nixon MD 05/20/2020 M75.42 Impingement syndrome of left robson coleman Nixon MD 05/18/2020 M75.112 Incomplete rotator c uff tear or rupture of left shoulder, not specified as traumatic Anders Nixon MD 05/18/2020 M75.42 Impingement syndrome of left robson coleman Nixon MD 04/30/2020 M75.112 Incomplete rotator c uff tear or rupture of left shoulder, not specified as traumatic Candi Whitt, MEDICAL ONCOLOGY PHYSICIAN 04/30/2020 M19.012 Primary osteoarthritis, left robson ulder Candi Phippse, MEDICAL ONCOLOGY PHYSICIAN 04/24/2020 M75.112 Incomplete rotator c uff tear or rupture of left shoulder, not specified as traumatic Ellen KruegerChung Membreno, MSPT 04/24/2020 M19.012 Primary osteoarthritis, left robson coleman Patelsandra, MSPT 03/24/2020 M75.112 Incomplete rotator c uff tear or rupture of left shoulder, not specified as traumatic Anders Nixon MD 03/24/2020 M19.012 Primary osteoarthritis, left robson coleman Anders Nixon MD 02/11/2020 M75.112 Incomplete rotator c uff tear or rupture of left shoulder, not specified as traumatic Birgit Jackson PA-C 02/11/2020 M19.012 Primary osteoarthritis, left robson ulwerner Birgit Jackson PA-C Plan of Treatment Future Appointment(s):* 07/16/2020 9:30 am - Dominga Guevara P.T.A. at Physical Therapy Functional Status Description No Information Available Mental Status Description No Information Available Referrals Refer to Dr Reason for Referral Status Appt Date Anders Nixon MD PT - 8 VISITS OK'D FOR L SHL DR FROM 06/12-09/10/20, RESP #[id number]. SS Created [address] [place] [address] [phone] Anders Nixon MD SURGERY PER GISELE Patel AT [facility] LEFT [facility]OULDER [facility] ([address], [address]) HAS SACHA APPROVED CODES (76972 AND 39867) NO AUTH REQUIRED TO SURGERY NT Created [address] [place] [address] [phone] Anders Nixon MD PT - 10 VISITS GOOD FOR L SH LDR FROM 04/27-06/11/20, AUTH #[id number], RES #[id number]. SS Created [address] [place] [address] [phone] Anders Nixon MD PT NO AUTH REQUIRED FOR 1 EV AL THEN PT CALL [phone] PASSED TO PT DEPT. LD Closed [address] [place] [address] [phone] Anders Nixon MD L3670 Arc 2.0 Pillow - Left No author ization required; Created [address] [place] [address] [phone] Anders Nixon MD PT ALLOWED EVAL THEN NEEDS A [facility] [phone] AND [phone]) TO PT DEPT. NT Created [address] [place] [address] [phone]
--- OUTSIDE RECORDS SUMMARY | 2020-07-17 08:44 | CCD | Continuity of Care Document ---
Author Author Tanna NIXON MD Organization Unknown Address [address] [place] [address] Phone [phone] Care Team Providers Care Sustainable Communities Designer Name Role Phone Maria Elena Enriquez AUTM [phone] Problems Description No Information Available Social History Type Date Description Comments Sex Unknown ETOH Use Denies alcohol use Tobacco Use Start: Unknown Denies Smoking Allergies, Adverse Reactions, Alerts Description No Known Drug Allergies Medications Active Medications SIG Qnty Indications Ordering Provide r Date Oxycodone-Acetaminophen 5-325mg Ta blets 1 tab daily as needed 20tabs Z47.89 Anders Nixon MD 07/01 Naproxen 375mg Tablets take one tablet by mouth twice a day after meals 120tabs Z47.89 Anders Nixon MD 05/29/2020 MS Contin 15mg Tablets ER 1 tab by mouth every 12 hours as needed / post surgical pain. (please do not fill utnil 05/20/2020). 4tabs Anders Nixon MD 0 Prednisone 20mg Tablets Parag Coffman PA Azithromycin 250mg Tablets Take One Tablet By Mouth Every Day Unknown Albuterol Sulfate HFA 108(90Base) mcg/Act Aerosol Parag Coffman PA Nystatin 654139Vxjp/GM Powder Apply To Affected Area S Two [...] Every Day Unknown Vitamin D (Ergocalciferol) 1.25mg (40069 Ut) Capsules Darien Rivers MD Tramadol HCL 50mg Tablets Take One Tablet By Mouth Three Times A Day as Needed Max 3Tabs/Day Unknown Magnesium Oxide 400(241.3Mg) mg Tablets Maria Elena Enriquez RNNP Escitalopram Oxalate 20mg Tablets Maria Elena Enriquez RNNP Dok 100mg Capsules Maria Elena Enriquez RNNP History Medications Percocet 5-325mg Tablets Take 1 tablet by mouth every 12 hours for pain, MDD 2 10tabs Matt dillon MD 04/08/2020 - 07/01/2020 Immunizations Description No Information Available Vital Signs Date Vital Result Comment 07/01/2020 9:57am Body Temperature 96.8 F Height 66 inches 5'6" Weight 220.00 lb BMI (Body Mass Index) 35.5 kg/m2 01/02/2018 10:10am Body Temperature 97.9 F Height 66 inches 5'6" Weight 229.00 lb BMI (Body Mass Index) 37.0 kg/m2 Results Test Acquired Date Facility Test Result H/L Range Note Laboratory test finding 05/15/2020 [facility] [address] [place] [address] (315)- - Coronavirus 2019 Nasopharygeal This nucleic aci <SEE NOTE> 1 1 This nucleic acid amplificat ion test was developed and its performance characteristics determined by [employer]. Nucleic acid amplification tests include PCR and [...] detected) result in this assay. Performed at: [facility] [address], [place], [place] [id number] Commercial Interior Designer: Maeve Mcfadden PhD, Phone: [phone] Not Detected Procedures Date Code Description Status 06/17/2020 60675 Therapeutic Procedure, Each 15 M inutes Completed 06/17/2020 74211 Hot Or Cold Packs Completed 06/15/2020 73776 Therapeutic Procedure, Each 15 M inutes Completed 06/15/2020 87985 Hot Or Cold Packs Completed 06/02/2020 71481 Physical Therapy Eval - Low Comp lexity Completed 05/20/2020 54546 Arthroscopy Shoulder Surgical Wi th Rotator Cuff Repair Completed 05/20/2020 66986 Arthroscopy Shoulder Decompress Subacromial Part Acromioplasty Completed 04/30/2020 37801 Therapeutic Procedure, Each 15 M inutes Completed 04/30/2020 68986 Hot Or Cold Packs Completed 04/24/2020 11765 Physical Therapy Eval - Low Comp lexity Completed Medical Devices Description No Information Available Encounters Type Date Location Provider Dx Diagnosis Office Visit 05/29/2020 10:00a Loni Nixon MD Z47. 89 Encounter for other orthopedic aftercare Office Visit 03/24/2020 3:15p Loni Nixon MD M75. 112 Incomplete rotatr-cuff tear/ruptr of l shoulder, not trauma M19.012 Primary osteoarthritis, left shoulder Office Visit 02/11/2020 1:15p [place] Birgit Jackson PA-C M75.112 Incomplete rotatr-cuff tear/ruptr of l shoulder, not trauma M19.012 Primary osteoarthritis, left shoulder Assessments Date Code Description Provider 07/01/2020 Z47.89 Encounter for other orthopedic a ftercare Anders Nixon MD 06/17/2020 Z47.89 Encounter for other orthopedic a ftercare Candi Whitt, GREASE RENDERER 06/15/2020 Z47.89 Encounter for other orthopedic a ftercare [facility] 06/02/2020 Z47.89 Encounter for other orthopedic a [...] shoulder, not specified as traumatic Candi Whitt, GREASE RENDERER 04/30/2020 M19.012 Primary osteoarthritis, left robson coleman Whitt, GREASE RENDERER 04/24/2020 M75.112 Incomplete rotator c uff tear or rupture of left shoulder, not specified as traumatic Ellen Membreno, MSPT 04/24/2020 M19.012 Primary osteoarthritis, left robson ulwerner Ellen Membreno, MSPT 03/24/2020 M75.112 Incomplete rotator c uff tear or rupture of left shoulder, not specified as traumatic Anders Nixon MD 03/24/2020 M19.012 Primary osteoarthritis, left robson ulder Anders Nixon MD 02/11/2020 M75.112 Incomplete rotator c uff tear or rupture of left shoulder, not specified as traumatic Birgit Jackson PA-C 02/11/2020 M19.012 Primary osteoarthritis, left robson coleman Birgit Jackson PA-C Plan of Treatment Future Appointment(s):* 07/08/2020 10:00 am - Latrell Mackenzie GREASE RENDERER at Physical Therapy * 07/06/2020 10:00 am - Ltarell Mackenzie GREASE RENDERER at Physical Therapy * 07/03/2020 9:30 am - Ellen Membreno, MSPT at Physical Therapy 07/01/2020 - Anders Nixon MD* Z47.89 Encounter for other orthopedic aftercare* New Medication:* Oxycodone-Acetaminophen 5-325 mg - 1 tab daily as needed * Follow up:* 6 weeks with [facility] for left shoulder recheck Functional Status Description No Information Available Mental Status Description No Information Available Referrals Refer to Reason for Referral Status Appt Date Anders Nixon MD PT - 8 VISITS OK'D FOR L SHL DR FROM 06/12-09/10/20, RESP #[id number]. SS Created [address] [place] [address] [phone] Anders Nixon MD SURGERY PER GISELE Patel AT [facility] ([address], [address]) HAS SACHA APPROVED CODES (55730 AND 33303) NO AUTH REQUIRED TO SURGERY NT Created [address] [place] [address] [phone] Anders Nixon MD PT - 10 VISITS GOOD FOR L SH LDR FROM 04/27-06/11/20, AUTH #[id number], RES #[id number]. SS Created [facility] [place] [address] [phone] Anders Nixon MD PT NO AUTH REQUIRED FOR 1 EV AL THEN PT CALL [phone] PASSED TO PT DEPT. LD Closed [address] [place] [address] [phone] Anders Nixon MD L3670 Arc 2.0 Pillow - Left No author ization required; Created [address] [place] [address] [phone] Anders Nixon MD PT ALLOWED EVAL THEN NEEDS A [facility] [phone] AND [phone]) TO PT DEPT. NT Created [address] [place] [address] [phone]
--- OUTSIDE RECORDS SUMMARY | 2020-07-17 08:44 | CCD ---
Author Author [facility] Organization [facility] Address Unknown Phone Unavailable Care Team Providers Care Education Supervisor Name Role Phone Mina Maria Elena Unavailable PROBLEMS Type Condition ICD9-CM Code HGO21-RD Code Onset Dates Condition S tatus SNOMED Code Notes Problem Menopausal and female climacteric states N95.1 Active 891965504 Problem Allergic rhinitis, unspecified J30.9 Active 6 8032074 Problem Diverticulitis K57.92 Active 030816043 Problem Low back pain M54.5 Active 132319005 Problem Vitamin D deficiency, unspecified E55.9 Active 47851767 Problem Multiple chronic diseases R69 Active 712079 2958536 Problem Headache R51 Active 13677970 Problem Gastro-esophageal reflux disease without esophagitis K21.9 Active 216507686 Problem Other hyperlipidemia E78.4 Active 28570738 Problem Abnormal mammogram R92.8 Active 028719689 Problem Abnormal immunological finding in serum, unspecified R76.9 Active 299697229 Problem Dyslipidemia E78.5 Active 434561411 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 Active 394892205 Problem Hypomagnesemia E83.42 Active 417026411 Problem Mixed hyperlipidemia E78.2 Active 607906409 Problem Chronic depression F32.9 Active 051409742 Problem Vitamin D deficiency E55.9 Active 85544531 ALLERGIES No Known Allergies ENCOUNTERS from 1960 to 2020-07-08 Encounter Location Date Provider Diagnosis [facility] [address] [place] [address] Jun Maria Elena Enriquez IMMUNIZATIONS Vaccine Route Administration Date Status Influenza [...] Once a day for 30 Not-Taking Nystatin 266567 UNIT/GM 1 application Externally twice daily as neede d Active Drisdol 67102 UNIT 1 capsule Orally weekly Active Atorvastatin [...] Information RESULTS No Results REASON FOR VISIT msg/call back MEDICAL (GENERAL) HISTORY Type Description Date Medical History LOW BACK PAIN Medical History DEGENERATIVE DISC DISEASE Medical History BILATERAL CARPAL TUNNEL-ORTHOPEDICS Medical History GERD Medical History HIATAL HERNIA Medical History ELEVATED CHOLESTEROL Medical History STRESS INCONTINENCE-UROLOGY Medical History ALLERGIC RHINITIS Medical History INCISIONAL HERNIA Medical History GASTROPARESIS Medical History Diverticulitis Medical History Rotator cuff tear left shoulder-sees Ort Surgical History HERNIA REPAIR - UMBILICAL AGE 9 Surgical History PANCREATITUS FROM GALLBLADDER SURGERY Surgical History ACID REFLUX SURGERY - FOLLOW ED BY LACERATED LIVER, AND HOLE IN STOMACH 1996 Surgical History CARPAL TUNNEL ON RIGHT WRIST 1989 Surgical History colonoscopy upper endoscopy [facility] 015 Surgical History tubal ligation 1983 Surgical [...] Provider Name:Maria Elena Enriquez, 2020-07-31 11:00:00 AM, [place], [address], Insurance Providers Payer Name Payer Address Payer Phone Insured Name Patient Relati onship to Insured Coverage Start Date Coverage End Date [facility] DEPT [address] [place] [phone] MATTHEW VALADEZ self
--- OUTSIDE RECORDS SUMMARY | 2020-07-17 08:44 | CCD | Continuity of Care Document ---
Author Author Tanna MEMBRENO MSPT Organization Unknown Address [address] [place] [address], [address] [address] Phone [phone] Care Team Providers Care Watcher [employer] Name Role Phone Maria Elena Enriquez ERICANP AUTM [phone] Problems Description No Information Available Social History [...] 108(90Base) mcg/Act Aerosol Parag Coffman PA Nystatin 613746Qnmv/GM Powder Apply To Affected Area S Two [...] Every Day Unknown Vitamin D (Ergocalciferol) 1.25mg (13204 Ut) Capsules Darien Rivers MD Tramadol HCL [...] H/L Range Note Laboratory test finding 05/15/[facility] [address] [place] [address] (315)- - Coronavirus 2019 Nasopharygeal This nucleic aci <SEE NOTE> 1 1 This nucleic acid amplificat ion test was developed and its performance characteristics determined by [employer]. Nucleic acid amplification tests include PCR and [...] detected) result in this assay. Performed at: [facility] [address], [place], [place] [id number] Exhaust Worker: Maeve Mcfadden PhD, Phone: [phone] Not Detected Procedures Date Code Description Status 07/10/2020 04903 Therapeutic Procedure, Each 15 M inutes Completed 07/06/2020 58296 Therapeutic Procedure, Each 15 M inutes Completed 07/06/2020 19483 Hot Or Cold Packs Completed 06/17/2020 64343 Therapeutic Procedure, Each 15 M inutes Completed 06/17/2020 83212 Hot Or Cold Packs Completed 06/15/2020 29958 Therapeutic Procedure, Each 15 M inutes Completed 06/15/2020 13261 Hot Or Cold Packs Completed 06/02/2020 11177 Physical Therapy Eval - Low Comp lexity Completed 05/20/2020 69708 Surgical Arthroscopy Shoulder W/ Rotator Cuff RPR Completed 05/20/2020 50655 Surgical Arthroscopy Robson W/Corac oacrm Ligm RLS Completed 04/30/2020 70659 Therapeutic Procedure, Each 15 M inutes Completed 04/30/2020 70922 Hot Or Cold Packs Completed 04/24/2020 73978 Physical Therapy Eval - Low Comp lexity [...] for other orthopedic a ftercare Candi Phippse, STRIPPER LATEX 06/15/2020 Z47.89 Encounter for other orthopedic a [...] shoulder, not specified as traumatic Candi Whitt, STRIPPER LATEX 04/30/2020 M19.012 Primary osteoarthritis, left robson ulder Candi Phippse, STRIPPER LATEX 04/24/2020 M75.112 Incomplete rotator c uff tear [...] FOR L SHL DR FROM 06/12-09/10/20, RESP #[id number]. SS Created [address] [place] [address] [phone] Anders Nixon MD SURGERY PER GISELE Patel AT [facility] ([address], [address]) HAS SACHA APPROVED CODES (35600 AND 59571) NO AUTH REQUIRED TO SURGERY NT Created [address] [place] [address] [phone] Anders Nixon MD PT - 10 VISITS GOOD FOR L SH LDR FROM 04/27-06/11/20, AUTH #[id number], RES #[id number]. SS Created [address] [place] [address] [phone] Anders Nixon MD PT NO AUTH REQUIRED FOR 1 EV AL THEN PT CALL [phone] PASSED TO PT DEPT. LD Closed [address] [place] [address] [phone] Anders Nixon MD L3670 Arc 2.0 Pillow - Left No author ization required; Created [address] [place] [address] [phone] Anders Nixon MD PT ALLOWED EVAL THEN NEEDS A [facility] [phone] AND [phone] TO PT DEPT. NT Created [address] [place] [address] [phone]
--- OUTSIDE RECORDS SUMMARY | 2020-07-17 08:44 | CCD | Continuity of Care Document ---
Author Author Tanna GUEVARA Organization Unknown Address [address] [place] [address] Phone [phone] Care Team Providers Care Cross Tie Maker Name Role Phone Maria Elena Enriquez RNNP AUTM [phone] Problems Description No Information Available Social History [...] 108(90Base) mcg/Act Aerosol Parag Coffman PA Nystatin 549631Wpag/GM Powder Apply To Affected Area S Two [...] Every Day Unknown Vitamin D (Ergocalciferol) 1.25mg (86825 Ut) Capsules Darien Rivers MD Tramadol HCL [...] H/L Range Note Laboratory test finding 05/15[facility] [address] [place] [address] (315)- - Coronavirus 2019 Nasopharygeal This nucleic aci <SEE NOTE> 1 1 This nucleic acid amplificat ion test was developed and its performance characteristics determined by [employer]. Nucleic acid amplification tests include PCR and [...] detected) result in this assay. Performed at: [facility] [address], [place] [address] [id number] Heel Seat Sander: Maeve Mcfadden PhD, Phone: [phone] Not Detected Procedures Date Code Description Status 07/16/2020 49940 Therapeutic Procedure, Each 15 M inutes Completed 07/16/2020 72616 Hot Or Cold Packs Completed 07/10/2020 86742 Therapeutic Procedure, Each 15 M inutes Completed 07/06/2020 70974 Therapeutic Procedure, Each 15 M inutes Completed 07/06/2020 34101 Hot Or Cold Packs Completed 06/17/2020 56771 Therapeutic Procedure, Each 15 M inutes Completed 06/17/2020 10084 Hot Or Cold Packs Completed 06/15/2020 24114 Therapeutic Procedure, Each 15 M inutes Completed 06/15/2020 19893 Hot Or Cold Packs Completed 06/02/2020 70650 Physical Therapy Eval - Low Comp lexity Completed 05/20/2020 94267 Surgical Arthroscopy Shoulder W/ Rotator Cuff RPR Completed 05/20/2020 79614 Surgical Arthroscopy Robson W/Corac oacrm Ligm RLS Completed 04/30/2020 29496 Therapeutic Procedure, Each 15 M inutes Completed 04/30/2020 88823 Hot Or Cold Packs Completed 04/24/2020 46352 Physical Therapy Eval - Low Comp lexity [...] left shoulder Assessments Date Code Description Provider 07/16/2020 Z47.89 Encounter for other orthopedic a ftercare Dominga Guevara P.T.A. 07/10/2020 Z47.89 Encounter for other orthopedic a ftercare Ellen Membreno, MSPT 07/06/2020 Z47.89 Encounter for other orthopedic a ftercare Ellen Membreno, MSPT 07/01/2020 Z47.89 Encounter for other orthopedic a ftercare Anders Nixon MD 06/17/2020 Z47.89 Encounter for other orthopedic a ftercare Candi Whitt, [facility] 06/15/2020 Z47.89 Encounter for other orthopedic a [...] shoulder, not specified as traumatic Candi Whitt, STATION TENDER 04/30/2020 M19.012 Primary osteoarthritis, left robson ulHopper, STATION TENDER 04/24/2020 M75.112 Incomplete rotator c uff tear or rupture of left shoulder, not specified as traumatic Ellen Membreno, MSPT 04/24/2020 M19.012 Primary osteoarthritis, left robson ulder [facility], [facility] 03/24/2020 M75.112 Incomplete rotator c [...] Jackson PA-C Plan of Treatment Future Appointment(s):* 07/22/2020 10:00 am - Dominga Guevara P.T.AChung at Physical Therapy * 07/20/2020 2:00 pm - Dominga Guevara P.TChungAChung at Physical Therapy Functional Status Description No Information Available Mental Status Description No Information Available Referrals Refer to Reason for Referral Status Appt Date Anders Nixon MD PT - 8 VISITS OK'D FOR L SHL DR FROM 06/12-09/10/20, RESP #[id number]. SS Created [address] [place] [address] [phone] Anders Nixon MD SURGERY PER GISELE Patel AT [facility] (04783, 44598) HAS SACHA APPROVED CODES (74165 AND 37612) NO AUTH REQUIRED TO SURGERY NT Created [address] [place] [address] [phone] Anders Nixon MD PT - 10 VISITS GOOD FOR L SH LDR FROM 04/27-06/11/20, AUTH #[id number], RES #[id number]. SS Created [address] [place] [address] [phone] Anders Nixon MD PT NO AUTH REQUIRED FOR 1 EV AL THEN PT CALL [phone] PASSED TO PT DEPT. LD Closed [facility] [place] [address] [phone] Anders Nixon MD L3670 Arc 2.0 Pillow - Left No author ization required; Created [facility] [place] [address] [phone] Anders Nixon MD PT ALLOWED EVAL THEN NEEDS A [facility] [phone] AND FAX([phone]) TO PT DEPT. NT Created [facility] [place] [address] [phone]
--- OUTSIDE RECORDS SUMMARY | 2020-07-17 08:45 | CCD | Continuity of Care Document ---
Author Author Tanna NIXON MD Organization Unknown Address [address] [place] [address] Phone [phone] Care Team Providers Care Civil Rights Representative Name Role Phone Maria Elena Enriquez RNNP AUTM [phone] Problems Description No Information Available Social History [...] Anders Nixon MD 05/29/2020 Percocet 5-325mg Tablets 1 tabs every 8 hours for as needed post op pain. 28tabs Anders vanegas MD 04/08/2020 MS Contin 15mg Tablets ER 1 tab by mouth every 12 hours as needed / post surgical pain. (please do not fill utnil 05/20/2020). 4tabs Anders Nixon MD 0 Prednisone 20mg Tablets Parag Coffman PA Azithromycin 250mg Tablets Take One Tablet By Mouth Every Day Unknown Albuterol Sulfate HFA 108(90Base) mcg/Act Aerosol Parag Coffman PA Nystatin 156927Pwwc/GM Powder Apply To Affected Area S Two [...] Every Day Unknown Vitamin D (Ergocalciferol) 1.25mg (64910 Ut) Capsules Darien Rivers MD Tramadol HCL [...] H/L Range Note Laboratory test finding [facility] [address] [place] [address] (315)- - Coronavirus 2019 Nasopharygeal This nucleic aci <SEE NOTE> 1 1 This nucleic acid amplificat ion test was developed and its performance characteristics determined by [employer]. Nucleic acid amplification tests include PCR and [...] detected) result in this assay. Performed at: [facility] [address] [facility], [place] [address] [id number] Coal Sample Tester: Maeve Mcfadden PhD, Phone: [phone] Not Detected Procedures Date Code Description Status 05/20/2020 49963 Arthroscopy Shoulder Surgical Wi th Rotator Cuff Repair Completed 05/20/2020 93304 Arthroscopy Shoulder Decompress Subacromial Part Acromioplasty Completed 04/30/2020 83308 Therapeutic Procedure, Each 15 M inutes Completed 04/30/2020 94217 Hot Or Cold Packs Completed 04/24/2020 06066 Physical Therapy Eval - Low Comp lexity [...] left shoulder Assessments Date Code Description Provider 05/29/2020 Z47.89 Encounter for other orthopedic a ftercare Anders Nixon MD 05/20/2020 M75.112 Incomplete rotator c uff tear or rupture of left shoulder, not specified as traumatic Anders Nixon MD 05/20/2020 M75.42 Impingement syndrome of left robson nigelder Anders Nixon MD 05/18/2020 M75.112 Incomplete rotator c uff tear or rupture of left shoulder, not specified as traumatic Anders Nixon MD 05/18/2020 M75.42 Impingement syndrome of left robson coleman Anders Nixon MD 04/30/2020 M75.112 Incomplete rotator c uff tear or rupture of left shoulder, not specified as traumatic Candi Whitt, CONTRACT NEGOTIATION SPECIALIST 04/30/2020 M19.012 Primary osteoarthritis, left robson coleman Whitt, CONTRACT NEGOTIATION SPECIALIST 04/24/2020 M75.112 Incomplete rotator c uff tear or rupture of left shoulder, not specified as traumatic Ellen Membreno, [facility] 04/24/2020 M19.012 Primary osteoarthritis, left robson coleman Membreno, [facility] 03/24/2020 M75.112 Incomplete rotator c uff tear or rupture of left shoulder, not specified as traumatic Anders Nixon MD 03/24/2020 M19.012 Primary osteoarthritis, left robson coleman Anders Nixon MD 02/11/2020 M75.112 Incomplete rotator c uff tear or rupture of left shoulder, not specified as traumatic Birgit Jackson PA-C 02/11/2020 M19.012 Primary osteoarthritis, left robson coleman Birgit Jackson PA-C Plan of Treatment Future Appointment(s):* 06/01/2020 3:30 pm - Ash Monroe, PT, DPT at Physical Therapy * 06/03/2020 3:00 pm - Candi Whitt PTA at Physical Therapy * 06/30/2020 10:00 am - Anders Nixon MD at [facility] 05/29/2020 - Anders Nixon MD* Z47.89 Encounter for other orthopedic aftercare* New Medication:* Naproxen 375 mg - take one tablet by mouth twice a day after meals * Follow up:* in the week of june for left shoulder recheck with ANM please. Functional Status Description No Information Available Mental Status Description No Information Available Referrals Refer to Dr Reason for Referral Status Appt Date Anders Nixon MD SURGERY PER GISELE Patel AT [facility] (98513, 76217) HAS SACHA APPROVED CODES (79480 AND 08097) NO AUTH REQUIRED TO SURGERY NT Created [facility] [address] [place] [id number] [phone] Anders Nixon MD PT - 10 VISITS GOOD FOR L SH LDR FROM 04/27-06/11/20, AUTH #[id number], RES #[id number]. SS Created [facility] [place] [address] [phone] Anders Nixon MD PT NO AUTH REQUIRED FOR 1 EV AL THEN PT CALL [phone] PASSED TO PT DEPT. LD Closed [facility] [place] [address] [phone] Anders Nixon MD L3180 Arc 2.0 Pillow - Left No author ization required; Created [address] [place] [address] [phone] Anders Nixon MD PT ALLOWED EVAL THEN NEEDS A [facility] [phone] AND [phone]) TO PT DEPT. NT Created [address] [place] [address] [phone]
--- OUTSIDE RECORDS SUMMARY | 2020-07-17 08:45 | CCD | Continuity of Care Document ---
Author Author Tanna SHEEHAN P.T. Organization Unknown Address [address] [place] [address] Phone [phone] Care Team Providers Care Programmer Analyst Health It Name Role Phone Maria Elena Enriquez RNNP AUTM [phone] Problems Description No Information Available Social History [...] 108(90Base) mcg/Act Aerosol Parag Coffman PA Nystatin 428680Oitj/GM Powder Apply To Affected Area S Two [...] Every Day Unknown Vitamin D (Ergocalciferol) 1.25mg (87610 Ut) Capsules Darien Rivers MD Tramadol HCL [...] H/L Range Note Laboratory test finding 05/15/2020 [facility] [address] [place] [address] (315)- - Coronavirus 2019 Nasopharygeal This nucleic aci <SEE NOTE> 1 1 This nucleic acid amplificat ion test was developed and its performance characteristics determined by [employer]. Nucleic acid amplification tests include PCR and [...] detected) result in this assay. Performed at: [facility] [address], [place], [place] [address] [id number] Dispatch Coordinator: Maeve Mcfadden PhD, Phone: [phone] Not Detected Procedures Date Code Description Status 06/17/2020 69748 Therapeutic Procedure, Each 15 M inutes Completed 06/17/2020 72129 Hot Or Cold Packs Completed 06/15/2020 51110 Therapeutic Procedure, Each 15 M inutes Completed 06/15/2020 45795 Hot Or Cold Packs Completed 06/02/2020 42226 Physical Therapy Eval - Low Comp lexity Completed 05/20/2020 44918 Arthroscopy Shoulder Surgical Wi th Rotator Cuff Repair Completed 05/20/2020 39265 Arthroscopy Shoulder Decompress Subacromial Part Acromioplasty Completed 04/30/2020 18563 Therapeutic Procedure, Each 15 M inutes Completed 04/30/2020 62541 Hot Or Cold Packs Completed 04/24/2020 54194 Physical Therapy Eval - Low Comp lexity [...] for other orthopedic a ftercare Ellen Membreno, [facility] 06/02/2020 Z47.89 Encounter for other orthopedic [...] shoulder, not specified as traumatic Candi Whitt, SCREW MACHINE TOOL SETTER 04/30/2020 M19.012 Primary osteoarthritis, left robson ulder Candi Whitt, SCREW MACHINE TOOL SETTER 04/24/2020 M75.112 Incomplete rotator c uff tear or rupture of left shoulder, not specified as traumatic Ellen EvansChung Membreno, [facility] 04/24/2020 M19.012 Primary osteoarthritis, left robson ulder Ellen KruegerChung Membreno, [facility] 03/24/2020 M75.112 Incomplete rotator c uff [...] 10:00 am - Anders Nixon MD at [place] Functional Status Description No Information Available Mental Status Description No Information Available Referrals Refer to Reason for Referral Status Appt Date Anders Nixon MD PT - 8 VISITS OK'D FOR L MARLEYL FROM 06/12-09/10/20, RESP #[id number]. SS Created [address] [place] [address] [phone] Anders Nixon MD SURGERY PER GISELE Patel AT [facility] (26241, 07623) HAS SACHA APPROVED CODES (10351 AND 30753) NO AUTH REQUIRED TO SURGERY NT Created [facility] [place] [address] [phone] Anders Nixon MD PT - 10 VISITS GOOD FOR L SH LDR FROM 04/27-06/11/20, AUTH #[id number], RES #[id number]. SS Created [facility] [place] [address] [phone] Anders Nixon MD PT NO AUTH REQUIRED FOR 1 EV AL THEN PT CALL [phone] PASSED TO PT DEPT. LD Closed [address] [place] [address] [phone] Anders Nixon MD L3670 Arc 2.0 Pillow - Left No author ization required; Created [facility] [place] [address] [phone] Anders Nixon MD PT ALLOWED EVAL THEN NEEDS A [facility] [phone] AND [phone]) TO PT DEPT. NT Created [facility] [place] [address] [phone]
--- OUTSIDE RECORDS SUMMARY | 2020-07-17 08:45 | CCD | Continuity of Care Document ---
Author Author Tanna NIXON MD Organization Unknown Address [address] [place] [address] Phone [phone] Care Team Providers Care Machining Manager Name Role Phone Maria Elena Enriquez RNNP AUTM [phone] Problems Description No Information Available Social History [...] 108(90Base) mcg/Act Aerosol Parag Coffman PA Nystatin 780637Fjdw/GM Powder Apply To Affected Area S Two [...] Every Day Unknown Vitamin D (Ergocalciferol) 1.25mg (54011 Ut) Capsules Darien Rivers MD Tramadol HCL [...] H/L Range Note Laboratory test finding [facility] [address] [place] [address] (315)- - Coronavirus 2019 Nasopharygeal This nucleic aci <SEE NOTE> 1 1 This nucleic acid amplificat ion test was developed and its performance characteristics determined by [employer]. Nucleic acid amplification tests include PCR and [...] detected) result in this assay. Performed at: [facility] [address] [facility], [place] [address] [id number] Elementary Art Teacher: Maeve Mcfadden PhD, Phone: [phone] Not Detected Procedures Date Code Description Status 05/20/2020 84986 Arthroscopy Shoulder Surgical Wi th Rotator Cuff Repair Completed 05/20/2020 87107 Arthroscopy Shoulder Decompress Subacromial Part Acromioplasty Completed 04/30/2020 47972 Therapeutic Procedure, Each 15 M inutes Completed 04/30/2020 40444 Hot Or Cold Packs Completed 04/24/2020 75955 Physical Therapy Eval - Low Comp lexity Completed Medical Devices Description No Information Available Encounters Type Date Location Provider Dx Diagnosis Office Visit 03/24/2020 3:15p Loni Nixon MD [...] M75.42 Impingement syndrome of left robson coleman iNxon MD 04/30/2020 M75.112 Incomplete rotator c uff tear or rupture of left shoulder, not specified as traumatic Candi Whitt, CATTLE SORTER 04/30/2020 M19.012 Primary osteoarthritis, left robson ulHopper, CATTLE SORTER 04/24/2020 M75.112 Incomplete rotator c uff tear or rupture of left shoulder, not specified as traumatic Ellen Membreno, MSPT 04/24/2020 M19.012 Primary osteoarthritis, left robson ulZhao, MSPT 03/24/2020 M75.112 Incomplete rotator c uff tear or rupture of left shoulder, not specified as traumatic Anders Nixon MD 03/24/2020 M19.012 Primary osteoarthritis, left robson ulwerner Anders Nixon MD 02/11/2020 M75.112 Incomplete rotator c uff tear or rupture of left shoulder, not specified as traumatic Birgit Jackson PA-C 02/11/2020 M19.012 Primary osteoarthritis, left robson ulwerner Birgit Jackson PA-C Plan of Treatment 05/29/2020 - Anders Nixon MD* Z47.89 Encounter for other orthopedic aftercare* New Medication:* Naproxen 375 mg - take one tablet by mouth twice a day after meals * Follow up:* in the 3rd week of june for left shoulder recheck with ANM please. Functional Status Description No Information Available Mental Status Description No Information Available Referrals Refer to Reason for Referral Status Appt Date Anders Nixon MD SURGERY PER GISELE Patel AT [facility] (697[address], 45595) HAS SACHA APPROVED CODES (13457 AND 56414) NO AUTH REQUIRED TO SURGERY NT Created [address] [place] [address] [phone] Anders Nixon MD PT - 10 VISITS GOOD FOR L SH LDR FROM 04/27-06/11/20, AUTH #[id number], RES #[id number]. SS Created [address] [place] [address] [phone] Anders Nixon MD PT NO AUTH REQUIRED FOR 1 EV AL THEN PT CALL [phone] PASSED TO PT DEPT. LD Closed [address] [place] [address] [phone] Anders Nixon MD L3670 Arc 2.0 Pillow - Left No author ization required; Created [address] [place] [address] [phone] Anders Nixon MD PT ALLOWED EVAL THEN NEEDS A [facility] [phone] AND FAX([phone]) TO PT DEPT. NT Created [address] [place] [address] [phone]
--- OUTSIDE RECORDS SUMMARY | 2020-07-17 08:45 | CCD | Continuity of Care Document ---
Author Author Tanna NIXON MD Organization Unknown Address [address] [place] [address] Phone [phone] Care Team Providers Care Collating Machine Operator Name Role Phone Maria Elena Enriquez RNNP AUTM [phone] Problems Description No Information Available Social History Type Date Description Comments Sex Unknown ETOH Use Denies alcohol use Tobacco Use Start: Unknown Denies Smoking Allergies, Adverse Reactions, Alerts Description No Known Drug Allergies Medications Active Medications SIG Qnty Indications Ordering Provide r Date Percocet 5-325mg Tablets 1-2 tabs every 4 hours for as needed post op pain. 30tabs Anders vanegas MD 04/08/2020 MS Contin 15mg Tablets ER 1 tab by mouth every 12 hours as needed / post surgical pain. (please do not fill utnil 05/20/2020). 4tabs Anders Nixon MD 0 Prednisone 20mg Tablets Parag Coffman PA Azithromycin 250mg Tablets Take One Tablet By Mouth Every Day Unknown Albuterol Sulfate HFA 108(90Base) mcg/Act Aerosol Parag Coffman PA Nystatin 446340Nreq/GM Powder Apply To Affected Area S Two [...] Every Day Unknown Vitamin D (Ergocalciferol) 1.25mg (62409 Ut) Capsules Darien Rivers MD Tramadol HCL [...] H/L Range Note Laboratory test finding [facility]2020 [facility] [address] [place] [address] (315)- - Coronavirus 2019 Nasopharygeal This nucleic aci <SEE NOTE> 1 1 This nucleic acid amplificat ion test was developed and its performance characteristics determined by [employer]. Nucleic acid amplification tests include PCR and [...] detected) result in this assay. Performed at: [facility] [address] [place], [place] [address] Coil Shaper: Maeve Mcfadden PhD, Phone: [phone] Not Detected Procedures Date Code Description Status 05/20/2020 73143 Arthroscopy Shoulder Surgical Wi th Rotator Cuff Repair Completed 05/20/2020 04804 Arthroscopy Shoulder Decompress Subacromial Part Acromioplasty Completed 04/30/2020 18351 Therapeutic Procedure, Each 15 M inutes Completed 04/30/2020 84289 Hot Or Cold Packs Completed 04/24/2020 76551 Physical Therapy Eval - Low Comp lexity [...] left shoulder Assessments Date Code Description Provider 05/20/2020 M75.112 Incomplete rotator c uff tear or rupture of left shoulder, not specified as traumatic Anders Nixon MD 05/20/2020 M75.42 Impingement syndrome of left robson coleman Anders Nixon MD 05/18/2020 M75.112 Incomplete rotator c uff tear or rupture of left shoulder, not specified as traumatic Anders Nioxn MD 05/18/2020 M75.42 Impingement syndrome of left robson coleman Anders Nixon MD 04/30/2020 M75.112 Incomplete rotator c uff tear or rupture of left shoulder, not specified as traumatic Candi Whitt, PROGRAM FACILITATOR 04/30/2020 M19.012 Primary osteoarthritis, left robson ulder Candi Whitt, PROGRAM FACILITATOR 04/24/2020 M75.112 Incomplete rotator c uff tear [...] Jackson PA-C Plan of Treatment Future Appointment(s):* 05/29/2020 10:00 am - Anders Nixon MD at [place] Functional Status Description No Information Available Mental Status Description No Information Available Referrals Refer to Dr Reason for Referral Status Appt Date Anders Nixon MD SURGERY PER GISELE Patel AT [facility] (60[address], [address]) HAS SACHA APPROVED CODES (97392 AND 10236) NO AUTH REQUIRED TO SURGERY NT Created [address] [place] [address] [phone] Anders Nixon MD PT - 10 VISITS GOOD FOR L SH LDR FROM 04/27-06/11/20, AUTH #[id number], RES #[id number]. SS Created [address] [place] [address] [phone] Anders Nixon MD PT NO AUTH REQUIRED FOR 1 EV AL THEN PT CALL [phone] PASSED TO PT DEPT. LD Closed [address] [place] [address] [phone] Anders Nixon MD L3670 Arc 2.0 Pillow - Left No author ization required; Created [address] [place] [address] [phone] Anders Nixon MD PT ALLOWED EVAL THEN NEEDS A [facility] [phone] AND [phone] TO PT DEPT. NT Created [address] [facility] [address] [place] [address] [phone]
--- OUTSIDE RECORDS SUMMARY | 2020-07-17 08:45 | CCD ---
Continuity of Care Document (CCD) Created on: 05/20/2020 Marixa Tanna D External Reference #: [id number] : [id number] Sex: Female Author Author Tanna HARDY Organization Unknown Address [address] [place] [address] Phone [phone] Care Team Providers Care Table Games Dealer Name Role Phone Maria Elena Enriquez AUTM [phone] Problems Active Problems Provider Date Migraine without aura Glenroy Jackson M.D. Onset: 01/01/2014 Chronic neck pain Glenroy Jackson M.D. Onset: 01/01/2014 Social History Type Date Description Comments Sex Unknown Tobacco Use Start: Unknown End: Unknown Patient is a former smoker Allergies, Adverse Reactions, Alerts Description No Known Drug Allergies Medications Active Medications SIG Qnty Indications Ordering Provide r Date Zonisamide 50mg Capsules 1 tab by mouth daily x 2 weeks then 2 tabs daily (taken with 100mg tabs) sofya Jackson M.D. 05/04/2020 Magnesium Oxide 400(241.3mg) mg Ta blets Take One Tablet By Mouth Every Day 30tamaryann Jackson M.D. 04/09/2014 Pamelor 25mg Capsules Take One Capsule By Mouth Every Day 30jennifer Jackson M.D. 01/01/2014 Zonisamide 100mg Capsules Take One Capsule By Mouth Twice A Day 60jennifer Jackson M.D. 4 Immunizations Description No Information Available Vital Signs Date Vital Result Comment 01/01/2014 10:20am BP Systolic 130 mmHg BP Diastolic 90 mmHg Heart Rate 72 /min Height 66 inches 5'6" Weight 230.00 lb BMI (Body Mass Index) 37.1 kg/m2 [place] Body Weight 130 lb Results Test Acquired Date Facility Test Result H/L Range Note CBC With Differential/Platelet 05/13/2020 [facility] N E WBC 10.4 x10E3/uL 3.4-10.8 RBC 5.12 x10E6/uL 3.77-5.28 Hemoglobin 14.3 g/dL 11.1-15.9 Hematocrit 43.8 % 34.0-46.6 MCV 86 fL 79-97 MCH 27.9 pg 26.6-33.0 MCHC 32.6 g/dL 31.5-35.7 RDW 13.5 % 11.7-15.4 Platelets 354 x10E3/uL 150-450 Neutrophils 59 % Not Estab. Lymphs 31 % Not Estab. Monocytes 7 % Not Estab. Eos 1 % Not Estab. Basos 1 % Not Estab. Immature Cells TNP Neutrophils (Absolute) 6.2 x10E3/uL 1.4-7.0 Lymphs (Absolute) 3.2 x10E3/uL High 0.7-3.1 Monocytes(Absolute) 0.8 x10E3/uL 0.1-0.9 Eos (Absolute) 0.1 x10E3/uL 0.0-0.4 Baso (Absolute) 0.1 x10E3/uL 0.0-0.2 Immature Granulocytes 1 % Not Estab. Immature Grans (Abs) 0.1 x10E3/uL 0.0-0.1 NRBC TNP Hematology Comments: TNP Metabolic Panel (14), Comprehensive 05/13/2020 [facility] [place] Glucose 95 mg/dL 65-99 BUN 19 mg/dL 6-24 Creatinine 0.98 mg/dL 0.57-1.00 eGFR If NonAfricn Am 64 mL/min/1.73 >59 eGFR If Africn Am 74 mL/min/1.73 >59 BUN/Creatinine Ratio 19 9-23 Sodium 142 mmol/L 134-144 Potassium 5.1 mmol/L 3.5-5.2 Chloride 104 mmol/L 96-106 Carbon Dioxide, Total 26 mmol/L 20-29 Calcium 9.7 mg/dL 8.7-10.2 Protein, Total 6.7 g/dL 6.0-8.5 Albumin 4.4 g/dL 3.8-4.9 Globulin, Total 2.3 g/dL 1.5-4.5 A/G Ratio 1.9 1.2-2.2 Bilirubin, Total <0.2 mg/dL 0.0-1.2 Alkaline Phosphatase 85 IU/L 39-117 Ast (Sgot) 24 IU/L 0-40 Alt (SGPT) 27 IU/L 0-32 Laboratory test finding 05/13/2020 [facility] NE TSH 2.250 uIU/mL 0.450-4.500 Rheumatoid Arthritis Factor <10.0 IU/mL 0.0-13.9 Vitamin D, 25-Hydroxy 31.6 ng/mL 30.0-100.0 1 Sedimentation Rate-Westergren 22 mm/hr 0-40 Antinuclear Antibodies, Ifa Negative 2 PDF [id number] SEE IMAGE 1 Vitamin D deficiency has bee n defined by the [place] of [employer] and an Endocrine Society practice guideline as a level of serum 25-OH vitamin D less than 20 ng/mL (1,2). The Endocrine Society went on to further define vitamin D insufficiency as a level between 21 and 29 ng/mL (2). 1. IOM ([place] of [employer]). 2010. Di etary reference intakes for calcium and D. [place]: The National Academies Press. 2. Franchesca MF, Gavi GILLIAM, Levy ramos VELASCO, et al. Evaluation, treatment, and prevention of vitamin D deficiency: an Endocrine Society clinical practice guideline. JCEM. 2010; 96(7):1911-30. 2 Negative <1:80 Borderline 1:80 Positive >1:80 Procedures Date Code Description Status 05/18/2020 77244 MRI Brain W/O Contrast Completed 05/18/2020 29600 MRI Brain W/O Contrast Completed 05/18/2020 09660 Magnetic Resonance Angiography N freddie W/O Contrast Materials Completed 05/18/2020 00613 Magnetic Resonance Angiography N freddie W/O Contrast Materials Completed 05/18/2020 44062 Magnetic Resonance Angiogtaphy H ead W/O Contrast Material(S) Completed 05/18/2020 43985 Magnetic Resonance Angiogtaphy H ead W/O Contrast Material(S) Completed 05/13/2020 03107 Sympathetic Skin Responses Compl eted 05/13/2020 53433 Sympathetic Skin Responses Compl eted 05/13/2020 76009 Test Autonomic Nervous System, C ardiovagal Innervation Completed 05/13/2020 36820 Test Autonomic Nervous System, C ardiovagal Innervation Completed 05/13/2020 40586 Nerve Conduction 13+ Studies Com pleted 05/13/2020 21161 Needle Electromyography Complete , Five Or More Muscles Studied Completed 05/13/2020 37692 Needle Electromyography Complete , Five Or More Muscles Studied Completed Medical Devices Description No Information Available Encounters Type Date Location Provider Dx Diagnosis Office Visit 05/04/2020 1:00p Main office - [place] Yeseina Jackson M.D. M79.605 Pain in left leg G47.00 Insomnia, unspecified R41.3 Other amnesia G43.809 Other migraine, not intracta ble, without status migrainosus R20.2 Paresthesia of skin G44.40 Drug-induced headache, NEC, not intractable Assessments Date Code Description Provider 05/18/2020 G43.809 Other migraine, not intractable, without status migrainosus Glenroy Jackson M.D. 05/18/2020 G43.809 Other migraine, not intractable, without status migrainosus MRI 05/18/2020 R42 Dizziness and giddiness Glenroy Joel M.D. 05/18/2020 R42 Dizziness and giddiness MRI 05/13/2020 G60.8 Other hereditary and idiopathic neuropathies Rudy Jacob M.D. 05/13/2020 G60.8 Other hereditary and idiopathic neuropathies Ans/VS 05/13/2020 I95.1 Orthostatic hypotension Rudy jung M.D. 05/13/2020 I95.1 Orthostatic hypotension Ans/VS 05/13/2020 G60.9 Hereditary and idiopathic neurop athy, unspecified Glenroy Jermain Jackson 05/13/2020 M54.5 Low back pain Glenroy RenettaThang alvarado 05/13/2020 R20.2 Paresthesia of skin Glenroy Jackson M.D. 05/13/2020 M54.16 Radiculopathy, lumbar region Abd ul Renetta, MChungDChung 05/04/2020 M79.605 Pain in left leg Thang Alonso 05/04/2020 M79.605 Pain in left leg Yesenia Renetta, M ChungDChung 05/04/2020 G47.00 Insomnia, unspecified Rudy Jacob M.D. 05/04/2020 G47.00 Insomnia, unspecified Yesenia Lat ifJermain 05/04/2020 R41.3 Other amnesia Rudy Jacob M.D. 05/04/2020 R41.3 Other amnesia Mario De Leon. 05/04/2020 G43.809 Other migraine, not intractable, without status migrainosus Mario AlonsoDChung 05/04/2020 G43.809 Other migraine, not intractable, without status migrainosus Evans De Leon.DChung 05/04/2020 R20.2 Paresthesia of skin Rudy Jacob M.D. 05/04/2020 R20.2 Paresthesia of skin Mario De LeonDChung 05/04/2020 G44.40 Drug-induced headach e, not elsewhere classified, not intractable Rudy Jacob M.D. 05/04/2020 G44.40 Drug-induced headach e, not elsewhere classified, not intractable Yesenia Jackson M.D. Plan of Treatment Future Appointment(s):* 07/06/2020 9:30 am - Seda Hernandez P.A.-C. at [facility] * 06/29/2020 9:45 am - EEG at [facility] Functional Status Description No Information Available Mental Status Description No Information Available Referrals Refer to Dr Reason for Referral Status Appt Date Bharti Sanchez D.O. QUESTIONABLE PAPILLEDEMA Created [facility] [address] [place] [address] [phone] Created
--- OUTSIDE RECORDS SUMMARY | 2020-07-17 08:45 | CCD ---
Author Author [facility] Organization [facility] Address Unknown Phone Unavailable Care Team Providers Care Pharmacy Specialist Name Role Phone EnriquezMaria Elena Unavailable PROBLEMS Type Condition ICD9-CM Code XOQ44-FF Code Onset Dates Condition S tatus SNOMED Code Notes Problem Menopausal and female climacteric states N95.1 Active 487434844 Problem Allergic rhinitis, unspecified J30.9 Active 6 7969182 Problem Diverticulitis K57.92 Active 294411470 Problem Low back pain M54.5 Active 646515699 Problem Vitamin D deficiency, unspecified E55.9 Active 63009976 Problem Multiple chronic diseases R69 Active 550699 9571769 Problem Headache R51 Active 83344792 Problem Gastro-esophageal reflux disease without esophagitis K21.9 Active 294601275 Problem Other hyperlipidemia E78.4 Active 54772610 Problem Abnormal mammogram R92.8 Active 531596746 Problem Abnormal immunological finding in serum, unspecified R76.9 Active 280177540 Problem Dyslipidemia E78.5 Active 843959422 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 Active 754348026 Problem Hypomagnesemia E83.42 Active 333702308 Problem Mixed hyperlipidemia E78.2 Active 302122144 Problem Chronic depression F32.9 Active 603549195 Problem Vitamin D deficiency E55.9 Active 93624266 ALLERGIES No Known Allergies ENCOUNTERS from 1960 to 2020-05-15 Encounter Location Date Provider Diagnosis [facility] [address] [place] [address] May Maria Elena Enriquez Abnormal mammogram R92.8 IMMUNIZATIONS Vaccine Route Administration Date Status Influenza [...] Notes Start Da te End Date Status Trospium Chloride 20 MG 1 tab Orally bid for 30 Days Active DocQLace 100 MG TAKE ONE CAPSULE BY MOUTH TWICE A DAY for 90 Active Zonisamide 100 mg 1 capsule Orally Twice a day for 30 Days Active Nystatin 067187 UNIT/GM 1 application Externally twice daily as neede d Active Magnesium Oxide 400 (241.3 Mg) MG 1 tablet with food orally Daily Active Escitalopram Oxalate 20 MG 1 tablet Orally Once a day for 30 Active Atorvastatin Calcium 40 mg 1 tablet Orally Once a day for 30 Days Active Fenofibrate 54 MG 1 tablet with a meal Orally Once a day for 30 Days Active Nortriptyline HCl 25 mg 1 capsule Orally Once a day for 30 Days Active Drisdol 35543 UNIT 1 capsule Orally weekly Active Escitalopram Oxalate 10 MG 1 tablet Orally Once a day for 30 Days Active Amitiza 24 MCG 1 capsule with food and water Orally Twice a day Nov, Active Tramadol HCl 50 MG 1 tablet as needed Orally tid prn MDD=3 for 7 day (s) Active Pantoprazole Sodium 40 mg 1 tablet Orally Once a day for 30 Days Active Ibuprofen 600 MG 1 tablet with food or milk a s needed Orally Three times a day for 10 day(s) Dec, Active PROCEDURES No Information RESULTS Component Value Reference Range DIAGNOSTIC BILATERAL MAMMO Reviewed date:05/22/2020 13:35:33 Interpretation: Performing Lab:[facility], [place] [address] REASON FOR VISIT mammo order MEDICAL (GENERAL) HISTORY Type Description Date Medical [...] WRIST 1989 Surgical History colonoscopy upper endoscopy [facility] 015 Surgical History tubal ligation 1984 Surgical History Hernia repair 04/2017 Surgical History Injection left shoulder for rotator cuff tear 12/2018 Hospitalization History surgery Goals Section No Information Health Concerns No Information MEDICAL EQUIPMENT No Information MENTAL STATUS No Information FUNCTIONAL STATUS No Information ASSESSMENTS Encounter Date Diagnosis Assessment Notes Treatment Notes Treatm ent Clinical Notes May, Abnormal mammogram (ICD-10 - R92.8) PLAN OF TREATMENT Medication Medication Name Sig Start Date Stop Date Escitalopram Oxalate 20 MG 1 tablet Orally Once a day for 30 Tramadol HCl 50 MG 1 tablet as needed Orally tid prn MDD=3 for 7 day(s) Magnesium Oxide 400 (241.3 Mg) MG 1 tablet with food orally Lopez y Nystatin 794609 UNIT/GM 1 application Externally twice daily as needed Fenofibrate 54 MG 1 tablet with a meal Orally Once a day for 30 Days DocQLace 100 MG TAKE ONE CAPSULE BY MOUTH TWICE A DAY for 90 Nortriptyline HCl 25 mg 1 capsule Orally Once a day for 30 Days Zonisamide 100 mg 1 capsule Orally Twice a day for 30 Days Escitalopram Oxalate 10 MG 1 tablet Orally Once a day for 30 Day s Pantoprazole Sodium 40 mg 1 tablet Orally Once a day for 30 Days Atorvastatin Calcium 40 mg 1 tablet Orally Once a day for 30 Day s Drisdol 24652 UNIT 1 capsule Orally weekly Amitiza 24 MCG 1 capsule with food and water Orally Twice a day Nov, Trospium Chloride 20 MG 1 tab Orally bid for 30 Days Ibuprofen 600 MG 1 tablet with food or milk a s needed Orally Three times a day for 10 day(s) Dec, Treatment Notes Test Name Order Date DIAGNOSTIC BILATERAL MAMMO 2020-05-15 Next Appt Details Provider Name:Maria Elena Enriquez, 2020-07-31 11:00:00 AM, [address], [place], [address], Insurance Providers Payer Name Payer Address Payer Phone Insured Name Patient Relati onship to Insured Coverage Start Date Coverage End Date [facility] [employer]POR[facility] CLAIMS DEPT [address] [facility] [phone] MATTHEW VALADEZ self
--- OUTSIDE RECORDS SUMMARY | 2020-07-17 08:45 | CCD ---
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 Name Role Phone MinaErastoja Unavailable PROBLEMS Type Condition ICD9-CM Code CLQ05-XR Code Onset Dates Condition S tatus SNOMED Code Notes Problem Menopausal and female climacteric states N95.1 Active 519827766 Problem Allergic rhinitis, unspecified J30.9 Active 6 2211460 Problem Diverticulitis K57.92 Active 544377203 Problem Low back pain M54.5 Active 004159184 Problem Vitamin D deficiency, unspecified E55.9 Active 81860526 Problem Multiple chronic diseases R69 Active 509846 6901690 Problem Headache R51 Active 81673397 Problem Gastro-esophageal reflux disease without esophagitis K21.9 Active 062956581 Problem Other hyperlipidemia E78.4 Active 43857290 Problem Abnormal mammogram R92.8 Active 338048681 Problem Abnormal immunological finding in serum, unspecified R76.9 Active 434339507 Problem Dyslipidemia E78.5 Active 580910334 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 Active 989593795 Problem Hypomagnesemia E83.42 Active 876401713 Problem Mixed hyperlipidemia E78.2 Active 214814447 Problem Chronic depression F32.9 Active 880794781 Problem Vitamin D deficiency E55.9 Active 12161684 ALLERGIES No Known Allergies ENCOUNTERS from 1960 to 2020-06-10 Encounter Location Date Provider Diagnosis [facility] [address] [place] [address] May Maria Elena Enriquez IMMUNIZATIONS Vaccine Route Administration [...] tab Orally bid for 30 Days Active Fenofibrate 54 MG 1 tablet with a meal Orally Once a day for 30 Days Active Zonisamide 100 mg 1 capsule Orally Twice a day for 30 Days Active Nystatin 653027 UNIT/GM 1 application Externally twice daily as neede d Active Magnesium Oxide 400 (241.3 Mg) MG 1 tablet with food orally Daily Active Escitalopram Oxalate 10 MG 1 tablet Orally Once a day for 30 Active Tramadol HCl 50 MG 1 tablet as needed Orally tid prn MDD=3 for 7 day (s) Active Atorvastatin Calcium 40 mg 1 tablet Orally Once a day for 30 Days Active Nortriptyline HCl 25 mg 1 capsule Orally Once a day for 30 Days Active Drisdol 50241 UNIT 1 capsule Orally weekly Active DocQLace 100 MG TAKE ONE CAPSULE BY MOUTH TWICE A DAY for 90 Active Amitiza 24 MCG 1 capsule with food and water Orally Twice a day Nov, Active Escitalopram Oxalate 20 MG 1 tablet Orally Once a day for 30 Active Pantoprazole Sodium 40 mg 1 tablet Orally Once a day for 30 Days Active Ibuprofen 600 MG 1 tablet with food or milk a s needed Orally Three times a day for 10 day(s) Dec, Active PROCEDURES No Information RESULTS No Results REASON FOR VISIT refill MEDICAL (GENERAL) HISTORY Type Description Date Medical [...] WRIST 1989 Surgical History colonoscopy upper endoscopy [facility] 015 Surgical History tubal ligation 1983 Surgical History Hernia repair 04/2017 Surgical History Injection left shoulder for rotator cuff tear 12/2018 Hospitalization History surgery Goals Section No Information Health Concerns No Information MEDICAL EQUIPMENT No Information MENTAL STATUS No Information FUNCTIONAL STATUS No Information ASSESSMENTS No Information PLAN OF TREATMENT Medication Medication Name Sig Start Date Stop Date Escitalopram Oxalate 10 MG 1 tablet Orally Once a day for 30 Escitalopram Oxalate 20 MG 1 tablet Orally Once a day for 30 Magnesium Oxide 400 (241.3 Mg) MG 1 tablet with food orally Lopez y Nystatin 033485 UNIT/GM 1 application Externally twice daily as needed Atorvastatin Calcium 40 mg 1 tablet Orally Once a day for 30 Day s Fenofibrate 54 MG 1 tablet with a meal Orally Once a day for 30 Days Nortriptyline HCl 25 mg 1 capsule Orally Once a day for 30 Days Zonisamide 100 mg 1 capsule Orally Twice a day for 30 Days DocQLace 100 MG TAKE ONE CAPSULE BY MOUTH TWICE A DAY for 90 Pantoprazole Sodium 40 mg 1 tablet Orally Once a day for 30 Days Tramadol HCl 50 MG 1 tablet as needed Orally tid prn MDD=3 for 7 day(s) Drisdol 40617 UNIT 1 capsule Orally weekly Amitiza 24 MCG 1 capsule with food and water Orally Twice a day Nov, Trospium Chloride 20 MG 1 tab Orally bid for 30 Days Ibuprofen 600 MG 1 tablet with food or milk a s needed Orally Three times a day for 10 day(s) Dec, Next Appt Details Provider Name:Maria Elena Enriquez, 2020-07-31 11:00:00 AM, [address], [place], [address], Insurance Providers Payer Name Payer Address Payer Phone Insured Name Patient Relati onship to Insured Coverage Start Date Coverage End Date [facility]PORATE CLAIMS DEPT [address] [facility] [phone] MATTHEW VALADEZ self
--- OUTSIDE RECORDS SUMMARY | 2020-07-17 08:45 | CCD | Continuity of Care Document ---
Author Author Tanna RAZO P.T. Organization Unknown Address [address] [place] [address] Phone [phone] Care Team Providers Care Business Objects Architect Name Role Phone Maria Elena Enriquez RNNP AUTM [phone] Problems Description No Information Available Social History [...] 108(90Base) mcg/Act Aerosol Parag Coffman PA Nystatin 071559Tyab/GM Powder Apply To Affected Area S Two Times A Day as Needed Unkno wn Ibuprofen 600mg Tablets Take One Tablet By Mouth Three Times A Day as Needed With Food Or Milk Unknown Amitiza 24mcg Capsules Take One Capsule By Mouth Twice A Day With Food And Water Unknown Atorvastatin Calcium 40mg Tablets Darien Rivers MD Pantoprazole Sodium 40mg Tablets Darien Hernadnez MD Trospium Chloride 20mg Tablets Take One [...] Every Day Unknown Vitamin D (Ergocalciferol) 1.25mg (33589 Ut) Capsules Darien Rivers MD Tramadol HCL [...] H/L Range Note Laboratory test finding [facility] [address] [place] [address] ([phone] - Coronavirus 2019 Nasopharygeal This nucleic aci <SEE NOTE> 1 1 This nucleic acid amplificat ion test was developed and its performance characteristics determined by [facility]. Nucleic acid amplification tests include PCR and [...] detected) result in this assay. Performed at: [facility] [address] [place], [place] [address] [id number] Sock Turner: Maeve Mcfadden PhD, Phone: [phone] Not Detected Procedures Date Code Description Status 05/20/2020 88118 Arthroscopy Shoulder Surgical Wi th Rotator Cuff Repair Completed 05/20/2020 40899 Arthroscopy Shoulder Decompress Subacromial Part Acromioplasty Completed 04/30/2020 48754 Therapeutic Procedure, Each 15 M inutes Completed 04/30/2020 70849 Hot Or Cold Packs Completed 04/24/2020 85314 Physical Therapy Eval - Low Comp lexity [...] shoulder, not specified as traumatic Candi Whitt, RETAIL SPECIALIST 04/30/2020 M19.012 Primary osteoarthritis, left robson coleman Whitt, RETAIL SPECIALIST 04/24/2020 M75.112 Incomplete rotator c uff tear or rupture of left shoulder, not specified as traumatic Ellen Patelsandra, MSPT 04/24/2020 M19.012 Primary osteoarthritis, left robsno coleman Membreno, MSPT 03/24/2020 M75.112 Incomplete rotator c [...] Jackson PA-C Plan of Treatment Future Appointment(s):* 06/30/2020 10:00 am - Anders Nixon MD at [place] Functional Status Description No Information Available Mental Status Description No Information Available Referrals Refer to Dr Reason for Referral Status Appt Date Anders Nixon MD SURGERY PER GISELE Patel AT [facility] LEFT SHOULDER SURGERY (51941, 31898) HAS SACHA APPROVED CODES (69660 AND 62116) NO AUTH REQUIRED TO SURGERY NT Created [address] [place] [address] [phone] Anders Nixon MD PT - 10 VISITS [facility] FOR L SH LDR FROM 04/27-06/11/20, AUTH #[id number], RES #[id number]. SS Created [address] [place] [address] [phone] Anders Nixon MD PT NO AUTH REQUIRED FOR 1 EV AL THEN PT CALL [phone] PASSED TO PT DEPT. LD Closed [address] [place] [address] [phone] Anders Nixon MD L3670 Arc 2.0 Pillow - Left No author ization required; Created [address] [place] [address] [phone] Anders Nixon MD PT ALLOWED EVAL THEN NEEDS A [facility] [phone] AND FAX([phone]) TO PT DEPT. NT Created [address] [place] [address] [phone]
--- OUTSIDE RECORDS SUMMARY | 2020-07-17 08:45 | CCD | Continuity of Care Document ---
Author Author Tanna PEDERSON MSPT Organization Unknown Address [address] [place] [address], [address] [address] Phone [phone] Care Team Providers Care Wig Dresser Name Role Phone Maria Elena Enriquez RNNP AUTM [phone] Problems Description No Information Available Social History [...] MD 05/29/2020 Percocet 5-325mg Tablets Take 1 Tablet By Mouth Every 8 Hours as Needed For Pain, MDD 3 15tabs A steffany Nixon MD 04/08/2020 MS Contin 15mg Tablets ER 1 tab by mouth every 12 hours as needed / post surgical pain. (please do not fill utnil 05/20/2020). 4tabs Anders Nixon MD 0 Prednisone 20mg Tablets Parag Coffman PA Azithromycin 250mg Tablets Take One Tablet By Mouth Every Day Unknown Albuterol Sulfate HFA 108(90Base) mcg/Act Aerosol Parag Coffman PA Nystatin 109815Hmtq/GM Powder Apply To Affected Area S Two [...] Every Day Unknown Vitamin D (Ergocalciferol) 1.25mg (68671 Ut) Capsules Darien Rivers MD Tramadol HCL [...] H/L Range Note Laboratory test finding 05/15[facility] [address] [place] [address] (315)- - Coronavirus 2019 Nasopharygeal This nucleic aci <SEE NOTE> 1 1 This nucleic acid amplificat ion test was developed and its performance characteristics determined by [employer]. Nucleic acid amplification tests include PCR and [...] detected) result in this assay. Performed at: [employer] [facility], [place], [place] [id number] Pension Adviser: Maeve Mcfadden PhD, Phone: [phone] Not Detected Procedures Date Code Description Status 06/02/2020 98149 Physical Therapy Eval - Low Comp lexity Completed 05/20/2020 72061 Arthroscopy Shoulder Surgical Wi th Rotator Cuff Repair Completed 05/20/2020 00556 Arthroscopy Shoulder Decompress Subacromial Part Acromioplasty Completed 04/30/2020 79598 Therapeutic Procedure, Each 15 M inutes Completed 04/30/2020 88792 Hot Or Cold Packs Completed 04/24/2020 23901 Physical Therapy Eval - Low Comp lexity [...] left shoulder Assessments Date Code Description Provider 06/02/2020 Z47.89 Encounter for other orthopedic a [...] shoulder, not specified as traumatic Candi Whitt, TEST ENG 04/30/2020 M19.012 Primary osteoarthritis, left robson coleman Whitt, TEST ENG 04/24/2020 M75.112 Incomplete rotator c uff tear or rupture of left shoulder, not specified as traumatic Ellen Martin Haseeb, MSPT 04/24/2020 M19.012 Primary osteoarthritis, left robson coleman [facility]els[facility], [facility] 03/24/2020 M75.112 Incomplete rotator c [...] Jackson PA-C Plan of Treatment Future Appointment(s):* 06/24/2020 8:00 am - Candi Whitt PTA at Physical Therapy * 06/22/2020 8:00 am - Candi Whitt PTA at Physical Therapy * 06/17/2020 9:30 am - Candi Whitt PTA at Physical Therapy * 07/01/2020 10:00 am - Anders Nixon MD at [facility] Functional Status Description No Information Available Mental Status Description No Information Available Referrals Refer to Reason for Referral Status Appt Date Anders Nixon MD PT - 8 VISITS OK'D FOR Alexis [address] FROM 06/12-09/10/20, RESP #[id number]. SS Created [facility] [address] [place] [address] [phone] Anders Nixon MD SURGERY PER GISELE H. AT [facility] LEFT SHOULDER SURGERY (41294, 09125) HAS SACHA APPROVED CODES (65218 AND 21091) NO AUTH REQUIRED TO SURGERY NT Created [address] [place] [address] [phone] Anders Nixon MD PT - 10 VISITS GOOD FOR L SH LDR FROM 04/27-06/11/20, AUTH #[id number], RES #[id number]. SS Created [facility] [place] [address] [phone] Anders Nixon MD PT NO AUTH REQUIRED FOR 1 EV AL THEN PT CALL [phone] PASSED TO PT DEPT. LD Closed [facility] [place] [address] [phone] Anders Nixon MD L3670 Arc 2.0 Pillow - Left No author ization required; Created [address] [place] [address] [phone] Anders Nixon MD PT ALLOWED EVAL THEN NEEDS A [facility] [phone] AND [phone] TO PT DEPT. NT Created [facility] [place] [address] [phone]
--- OUTSIDE RECORDS SUMMARY | 2020-07-17 08:45 | CCD ---
Author Author [facility] Organization [facility] Address Unknown Phone Unavailable Care Team Providers Care Repeat Chief Name Role Phone Pringle, Rogelio Unavailable PROBLEMS Type Condition ICD9-CM Code ZVA39-JE Code Onset Dates Condition S tatus SNOMED Code Notes Problem Menopausal and female climacteric states N95.1 Active 857027390 Problem Allergic rhinitis, unspecified J30.9 Active 6 3477561 Problem Diverticulitis K57.92 Active 640310507 Problem Low back pain M54.5 Active 889252101 Problem Vitamin D deficiency, unspecified E55.9 Active 91482173 Problem Multiple chronic diseases R69 Active 018962 4137879 Problem Headache R51 Active 83293883 Problem Gastro-esophageal reflux disease without esophagitis K21.9 Active 326512595 Problem Other hyperlipidemia E78.4 Active 24781607 Problem Abnormal mammogram R92.8 Active 643847973 Problem Abnormal immunological finding in serum, unspecified R76.9 Active 441749395 Problem Dyslipidemia E78.5 Active 186100187 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 Active 332225105 Problem Hypomagnesemia E83.42 Active 213037503 Problem Mixed hyperlipidemia E78.2 Active 923696578 Problem Chronic depression F32.9 Active 835460743 Problem Vitamin D deficiency E55.9 Active 09335030 ALLERGIES No Known Allergies ENCOUNTERS from 1960 to 2020-05-19 Encounter Location Date Provider Diagnosis [facility] [address] [place] [address] May, Rogelio Pringle Abnormal ultrasound of breast R92.8 IMMUNIZATIONS Vaccine Route Administration Date Status [...] a day for 30 Days Active Nystatin 286579 UNIT/GM 1 application Externally twice daily as [...] a day for 30 Days Active Drisdol 06650 UNIT 1 capsule Orally weekly Active Escitalopram [...] Information RESULTS No Results REASON FOR VISIT birads 4 mammo MEDICAL (GENERAL) HISTORY Type Description Date Medical [...] WRIST 1989 Surgical History colonoscopy upper endoscopy [facility] 015 Surgical History tubal ligation 1983 Surgical History Hernia repair 04/2017 Surgical History Injection left shoulder for rotator cuff tear 12/2018 Hospitalization History surgery Goals Section No Information Health Concerns No Information MEDICAL EQUIPMENT No Information MENTAL STATUS No Information FUNCTIONAL STATUS No Information ASSESSMENTS Encounter Date Diagnosis Assessment Notes Treatment Notes Treatm ent Clinical Notes May, Abnormal ultrasound of breast (ICD-10 - R92.8) PLAN OF TREATMENT Medication Medication Name Sig Start Date Stop Date Escitalopram Oxalate 20 MG 1 tablet Orally Once a day for 30 Tramadol HCl 50 MG 1 tablet as needed Orally tid prn MDD=3 for 7 day(s) Magnesium Oxide 400 (241.3 Mg) MG 1 tablet with food orally Lopez y Nystatin 190020 UNIT/GM 1 application Externally twice daily as [...] a day for 30 Day s Drisdol 11303 UNIT 1 capsule Orally weekly Amitiza 24 MCG 1 capsule with food and water Orally Twice a day Nov, Trospium Chloride 20 MG 1 tab Orally bid for 30 Days Ibuprofen 600 MG 1 tablet with food or milk a s needed Orally Three times a day for 10 day(s) Dec, Next Appt Details Provider Name:Maria Elena Enriquez, 2020-07-31 11:00:00 AM, Katlyn [address], [place], [address], Insurance Providers Payer Name Payer Address Payer Phone Insured Name Patient Relati onship to Insured Coverage Start Date Coverage End Date [facility] CLAIM[facility] DEPT [address] [facility] [phone] MATTHEW VALADEZ self
--- OUTSIDE RECORDS SUMMARY | 2020-07-17 08:45 | CCD | Continuity of Care Document ---
Author Author Tanna NIXON MD Organization Unknown Address [address] [place] [address] Phone [phone] Care Team Providers Care Wire Rope Fabrication Supervisor Name Role Phone Maria Elena Enriquez AUTM [phone] Problems Description No Information Available Social History Type Date Description Comments Sex Unknown ETOH Use Denies alcohol use Tobacco Use Start: Unknown Denies Smoking Allergies, Adverse Reactions, Alerts Description No Known Drug Allergies Medications Active Medications SIG Qnty Indications Ordering Provide r Date Percocet 5-325mg Tablets 1-2 tabs every 4 hours for as needed post op pain. (please do not fill until 05/20/2020) 30tabs Anders Nixon MD 04/08/2020 MS Contin 15mg Tablets ER 1 tab by mouth every 12 hours as needed / post surgical pain. (please do not fill utnil 05/20/2020). 4tabs Anders Nixon MD 0 Prednisone 20mg Tablets Parag Coffman PA Azithromycin 250mg Tablets Take One Tablet By Mouth Every Day Unknown Albuterol Sulfate HFA 108(90Base) mcg/Act Aerosol Parag Coffman PA Nystatin 544532Aejw/GM Powder Apply To Affected Area S Two [...] Tablet By Mouth Twice A Day Unknown 00 Zonisamide 100mg Capsules Take One Capsule By Mouth Twice A Day Unknown Nortriptyline HCL 25mg Capsules Take One Capsule By Mouth Every Day Unknown Fenofibrate 54mg Tablets Take One Tablet By Mouth Every Day With A Meal Unknown 0 Escitalopram Oxalate 10mg Tablets Take One Tablet By Mouth Every Day Unknown Vitamin D (Ergocalciferol) 1.25mg (93731 Ut) Capsules Darien Rivers MD Tramadol HCL [...] H/L Range Note Laboratory test finding 05/15/2020 [facility] [address] [place] [address] (315)- - Coronavirus 2019 Nasopharygeal This nucleic aci <SEE NOTE> 1 1 This nucleic acid amplificat ion test was developed and its performance characteristics determined by [employer]. Nucleic acid amplification tests include PCR and [...] detected) result in this assay. Performed at: [facility] [address], [place] [id number] City Comptroller: Maeve Mcfadden PhD, Phone: [phone] Not Detected Procedures Date Code Description Status 05/20/2020 13276 Arthroscopy Shoulder Surgical Wi th Rotator Cuff Repair Completed 05/20/2020 19816 Arthroscopy Shoulder Decompress Subacromial Part Acromioplasty Completed 04/30/2020 83849 Therapeutic Procedure, Each 15 M inutes Completed 04/30/2020 36298 Hot Or Cold Packs Completed 04/24/2020 51569 Physical Therapy Eval - Low Comp lexity [...] shoulder, not specified as traumatic Candi Whitt, SET UP INSPECTOR 04/30/2020 M19.012 Primary osteoarthritis, left robson ulder Candi Jose Eduardo, SET UP INSPECTOR 04/24/2020 M75.112 Incomplete rotator c uff tear or rupture of left shoulder, not specified as traumatic Ellen [facility]reno, [facility] 04/24/2020 M19.012 Primary osteoarthritis, left robson ulder Ellen Membreno, [facility] 03/24/2020 M75.112 Incomplete rotator c uff tear [...] 10:00 am - Anders Nixon MD at [facility] Functional Status Description No Information Available Mental Status Description No Information Available Referrals Refer to Dr Reason for Referral Status Appt Date Anders Nixon MD SURGERY PER GISELE Patel AT [facility] LEFT [facility]OULDER SURGERY ([address], [address]) HAS SACHA APPROVED CODES (84555 AND 02783) NO AUTH REQUIRED TO SURGERY NT Created [address] [place] [address] [phone] Anders Nixon MD PT - 10 VISITS GOOD FOR L SH LDR FROM 04/27-06/11/20, AUTH #[id number], RES #[id number]. SS Created [address] [place] [address] [phone] Anders Nixon MD PT NO AUTH REQUIRED FOR 1 EV AL THEN PT CALL [phone] PASSED TO PT DEPT. LD Closed [facility] [place] [address] [phone] Anders Nixon MD L3670 Arc 2.0 Pillow - Left No author ization required; Created [facility] [place] [address] [phone] Anders Nixon MD PT ALLOWED EVAL THEN NEEDS A [facility] [phone] AND [phone]) TO PT DEPT. NT Created [address] [place] [address] [phone]
--- OUTSIDE RECORDS SUMMARY | 2020-07-17 08:46 | CCD | Continuity of Care Document ---
Author Author Charles/Tanna PEACOCK Organization Unknown Address [address] [place] [address] Phone [phone] Care Team Providers Care Building Equipment Inspector Name Role Phone Maria Elena Enriquez AUTM [phone] Problems Active Problems Provider Date Migraine without [...] Take One Tablet By Mouth Every Day 30tabs Glenroy Jackson M.D. 04/09/2014 Pamelor 25mg Capsules Take [...] lb BMI (Body Mass Index) 37.1 kg/m2 [place] Body Weight 130 lb Results Test Acquired [...] 0-40 Antinuclear Antibodies, Ifa Negative 2 PDF [id number] SEE IMAGE 1 Vitamin D deficiency has bee n defined by the [place] of [employer] and an Endocrine Society practice guideline as a level of serum 25-OH vitamin D less than 20 ng/mL (1,2). The Endocrine Society went on to further define vitamin D insufficiency as a level between 21 and 29 ng/mL (2). 1. IOM ([place] of [employer]). 2010. Di etary reference intakes for calcium and D. [place]: The National Academies Press. 2. Franchesca MF, Gavi GILLIAM, Levy ramos VELASCO, et al. Evaluation, treatment, and prevention of vitamin D deficiency: an Endocrine Society clinical practice guideline. JCEM. 2010; 96(7):1911-30. 2 Negative <1:80 Borderline 1:80 Positive >1:80 Procedures Date Code Description Status 05/13/2020 20240 Sympathetic Skin Responses Compl eted 05/13/2020 85365 Sympathetic Skin Responses Compl eted 05/13/2020 20203 Test Autonomic Nervous System, C ardiovagal Innervation Completed 05/13/2020 90729 Test Autonomic Nervous System, C ardiovagal Innervation Completed 05/13/2020 83181 Nerve Conduction 13+ Studies Com pleted 05/13/2020 92989 Needle Electromyography Complete , Five Or More Muscles Studied Completed 05/13/2020 09344 Needle Electromyography Complete , Five Or More Muscles Studied Completed Medical Devices Description No Information Available Encounters Type Date Location Provider Dx Diagnosis Office Visit 05/04/2020 1:00p Main office - Loni Jackson M.D. M79.605 Pain in left leg G47.00 Insomnia, unspecified R41.3 Other amnesia G43.809 Other migraine, not intracta ble, without status migrainosus R20.2 Paresthesia of skin G44.40 Drug-induced headache, NEC, not intractable Assessments Date Code Description Provider 05/13/2020 G60.8 Other hereditary and idiopathic neuropathies Rudy Jacob M.D. 05/13/2020 G60.8 Other hereditary and idiopathic neuropathies Ans/VS 05/13/2020 I95.1 Orthostatic hypotension Rudy jung M.D. 05/13/2020 I95.1 Orthostatic hypotension Ans/VS 05/13/2020 G60.9 Hereditary and idiopathic neurop athy, unspecified Glenroy Renetta, M.DChung 05/13/2020 M54.5 Low back pain Glenroy Renetta, M.D Chung 05/13/2020 R20.2 Paresthesia of skin Glenroy Renetta, M.DChung 05/13/2020 M54.16 Radiculopathy, lumbar region Abd ul Renetta, M.D. 05/04/2020 M79.605 Pain in left leg Mario AlonsoD Chung 05/04/2020 M79.605 Pain in left leg Yesenia Renetta, M .D. 05/04/2020 G47.00 Insomnia, unspecified Rudy Ali M.DChung 05/04/2020 G47.00 Insomnia, unspecified Yesenia Lat if, M.D. 05/04/2020 R41.3 Other amnesia Mario AlonsoDChung 05/04/2020 R41.3 Other amnesia Yesenia Renetta, M. D. 05/04/2020 G43.809 Other migraine, not intractable, without status migrainosus Mario AlonsoDChung 05/04/2020 G43.809 Other migraine, not intractable, without status migrainosus Yesenia Renetta, M.D. 05/04/2020 R20.2 Paresthesia of skin Rudy Jacob M.D. 05/04/2020 R20.2 Paresthesia of skin Yesenia Renetta , M.DChung 05/04/2020 G44.40 Drug-induced headach e, not elsewhere classified, not intractable Mario AlonsoDChung 05/04/2020 G44.40 Drug-induced headach e, not elsewhere classified, not intractable Yesenia Renetta, MChungD. Plan of Treatment Future Appointment(s):* 07/06/2020 9:30 am - Seda Hernandez P.A.-C. at [facility] * 06/29/2020 9:45 am - EEG at [facility] Functional Status Description No Information Available Mental Status Description No Information Available Referrals Refer to Reason for Referral Status Appt Date Created
--- OUTSIDE RECORDS SUMMARY | 2020-07-17 08:46 | CCD | Continuity of Care Document ---
Author Author Tanna HARDY Organization Unknown Address [address] [place] [address] Phone [phone] Care Team Providers Care Environmental Programs Manager Name Role Phone Maria Elena Enriquez AUTM [phone] Problems Active Problems Provider Date Migraine without [...] lb BMI (Body Mass Index) 37.1 kg/m2 [place] Body Weight 130 lb Results Test Acquired [...] 0-40 Antinuclear Antibodies, Ifa Negative 2 PDF [id number] SEE IMAGE 1 Vitamin D deficiency has bee n defined by the [place] of Medicine and an Endocrine Society practice guideline as a level of serum 25-OH vitamin D less than 20 ng/mL (1,2). The Endocrine Society went on to further define vitamin D insufficiency as a level between 21 and 29 ng/mL (2). 1. IOM ([place] of [employer]). 2010. Di etary reference intakes for calcium and D. [place]: The National Academies Press. 2. Franchesca MF, Gavi GILLIAM, Levy ramos VELASCO, et al. Evaluation, treatment, and prevention of vitamin D deficiency: an Endocrine Society clinical practice guideline. JCEM. 2010; 96(7):1911-30. 2 Negative <1:80 Borderline 1:80 Positive >1:80 Procedures Date Code Description Status 05/13/2020 16513 Sympathetic Skin Responses Compl eted 05/13/2020 30785 Test Autonomic Nervous System, C ardiovagal Innervation Completed 05/13/2020 06400 Nerve Conduction 13+ Studies Com pleted 05/13/2020 55414 Needle Electromyography Complete , Five Or More Muscles Studied Completed 05/13/2020 55420 Needle Electromyography Complete , Five Or More Muscles Studied Completed 05/13/2020 20097 Artery Study Extremity Mult Leve ls Bilateral Completed Medical Devices Description No Information Available [...] idiopathic neuropathies Ans/VS 05/13/2020 I95.1 Orthostatic hypotension Ans/VS 05/13/2020 I70.222 Atherosclerosis of n ative arteries of extremities with rest pain, left leg Ans/VS 05/13/2020 G60.9 Hereditary and idiopathic neurop athy, unspecified Glenroy Renetta, M.D. 05/13/2020 M54.5 Low back pain Glenroy Renetta, M.D . 05/13/2020 R20.2 Paresthesia of skin Glenroy Renetta, M.D. 05/13/2020 M54.16 Radiculopathy, lumbar region Abd ul Renetta, M.D. 05/04/2020 M79.605 Pain in left leg Rudy Ali, M.D . 05/04/2020 M79.605 Pain in left leg Yesenia Renetta, M .D. 05/04/2020 G47.00 Insomnia, unspecified Rudy Ali , M.D. 05/04/2020 G47.00 Insomnia, unspecified Yesenia Lat if, M.D. 05/04/2020 R41.3 Other amnesia Rudy Ali, M.D. 05/04/2020 R41.3 Other amnesia Yesenia Renetta, M. D. 05/04/2020 G43.809 Other migraine, not intractable, without status migrainosus Rudy Ali, M.D. 05/04/2020 G43.809 Other migraine, not intractable, without status migrainosus Yesenia Renetta, M.D. 05/04/2020 R20.2 Paresthesia of skin Rudy Ali, M.D. 05/04/2020 R20.2 Paresthesia of skin Yesenia Renetta , M.D. 05/04/2020 G44.40 Drug-induced headach e, not elsewhere classified, not intractable Rudy Jacob M.D. 05/04/2020 G44.40 Drug-induced headach e, not elsewhere classified, not intractable Yesenia Renetta, M.D. Plan of Treatment Future Appointment(s):* 07/06/2020 9:30 am - Seda Hernandez P.A.-C. at [facility] * 06/29/2020 9:45 am - EEG at [facility] Functional Status Description No Information Available Mental Status Description No Information Available Referrals Refer to Reason for Referral Status Appt Date Created
--- OUTSIDE RECORDS SUMMARY | 2020-07-17 08:47 | CCD ---
Author Author [facility] Organization [facility] Address Unknown Phone Unavailable Care Team Providers Care Industrial Controls Technician Name Role Phone SEANAlexis PA Unavailable Unavailable SEAN, L IVETT PA Unavailable Unavailable SEAN, L IVETT PA Unavailable Unavailable SEAN, L IVETT PA Unavailable Unavailable SEAN, L IVETT PA Unavailable Unavailable SEAN, L IVETT PA Unavailable Unavailable SEAN, L IVETT PA Unavailable Unavailable SEAN, L IVETT PA Unavailable Unavailable SEAN, L IVETT PA Unavailable Unavailable SEAN, L IVETT PA Unavailable Unavailable SEAN, L IVETT PA Unavailable Unavailable SEAN, L IVETT PA Unavailable Unavailable SEAN, L IVETT PA Unavailable Unavailable SEAN, L IVETT PA Unavailable Unavailable SEAN, L IVETT PA Unavailable Unavailable SEAN, L IVETT PA Unavailable Unavailable SEAN, L IVETT PA Unavailable Unavailable SEAN, L IVETT PA Unavailable Unavailable SEAN, L IVETT PA Unavailable Unavailable Lalito MATTHEWS DPM Unavailable Unavailable Lalito MATTHEWS DPM Unavailable Unavailable Lalito MATTHEWS DPM Unavailable Unavailable Lalito MATTHEWS DPM Unavailable Unavailable Lalito MATTHESW DPM Unavailable Unavailable Lalito MATTHEWS DPM Unavailable Unavailable Lalito MATTHEWS DPM Unavailable Unavailable Lalito MATTHEWS DPM Unavailable Unavailable Lalito MATTHEWS DPM Unavailable Unavailable Lalito MATTHEWS DPM Unavailable Unavailable Lalito MATTHEWS DPM Unavailable Unavailable Lalito MATTHEWS DPM Unavailable Unavailable Lalito MATTHEWS DPM Unavailable Unavailable Lalito MATTHEWS DPM Unavailable Unavailable MAJAK, R KAYKAY DPM Unavailable Unavailable MAJAK, R KAYKAY DPM Unavailable Unavailable MAJAK, R KAYKAY DPM Unavailable Unavailable MAJAK, R KAYKAY DPM Unavailable Unavailable MAJAK, R KAYKAY DPM Unavailable Unavailable MAJAK, R KAYKAY DPM Unavailable Unavailable MAJAK, R KAYKAY DPM Unavailable Unavailable MAJAK, R KAYKAY DPM Unavailable Unavailable MAJAK, R KAYKAY DPM Unavailable Unavailable MAJAK, R KAYKAY DPM Unavailable Unavailable MAJAK, R KAYKAY DPM Unavailable Unavailable MAJAK, R KAYKAY DPM Unavailable Unavailable MAJAK, R KAYKAY DPM Unavailable Unavailable MAJAK, R KAYKAY DPM Unavailable Unavailable MAJAK, R KAYKAY DPM Unavailable Unavailable MAJAK, R KAYKAY DPM Unavailable Unavailable LUIS E, ALTHEA MONTEMAYOR Unavailable Unavailable LUIS E, ALTHEA MONTEMAYOR Unavailable Unavailable LUIS E, ALTHEA MD Unavailable Unavailable LUIS E, ALTHEA MD Unavailable Unavailable LUIS E, ALTHEA MONTEMAYOR Unavailable Unavailable LUIS E, ALTHEA MONTEMAYOR Unavailable Unavailable LUIS E, ALTHEA MD Unavailable Unavailable LUIS E, ALTHEA MD Unavailable Unavailable LUIS E, ALTHEA MD Unavailable Unavailable LUIS E, ALTHEA MD Unavailable Unavailable LUIS E, ALTHEA MD Unavailable Unavailable LUIS E, ALTHEA MD Unavailable Unavailable LUIS E, ALTHEA MONTEMAYOR Unavailable Unavailable LUIS E, ALTHEA MD Unavailable Unavailable LUIS E, ALTHEA MD Unavailable Unavailable LUIS E, ALTHEA MD Unavailable Unavailable LUIS E, ALTHEA MD Unavailable Unavailable LUIS E, ALTHEA MD Unavailable Unavailable LUIS E, ALTHEA MD Unavailable Unavailable LUIS E, ALHTEA MONTEMAYOR Unavailable Unavailable LUIS E, ALTHEA MONTEMAYOR Unavailable Unavailable LUIS E, ALTHEA MONTEMAYOR Unavailable Unavailable LUIS E, ALTHEA MONTEMAYOR Unavailable Unavailable LUIS E, ALTHAE MONTEMAYOR Unavailable Unavailable LUIS E, ALTHEA MONTEMAYOR Unavailable Unavailable LUIS E, ALTHEA MD Unavailable Unavailable LUIS E, ALTHEA MONTEMAYOR Unavailable Unavailable LUIS E, ALTHEA MONTEMAYOR Unavailable Unavailable LUIS E, ALTHEA MONTEMAYOR Unavailable Unavailable LUIS E, ALTHEA MONTEMAYOR Unavailable Unavailable LUIS E, ALTHEA MONTEMAYOR Unavailable Unavailable LUIS E, ALTHEA MONTEMAYOR Unavailable Unavailable LUIS E, ALTHEA MONTEMAYOR Unavailable Unavailable LUIS E, ALTHEA MONTEMAYOR Unavailable Unavailable LUIS E, ALTHEA MONTEMAYOR Unavailable Unavailable LUIS E, ALTHEA MONTEMAYOR Unavailable Unavailable LUIS E, ALTHEA MONTEMAYOR Unavailable Unavailable LUIS E, ALTHEA MONTEMAYOR Unavailable Unavailable LUIS E, ALTHEA MONTEMAYOR Unavailable Unavailable LUIS E, ALTHEA MD Unavailable Unavailable Josh Rivers Unavailable Grybowski, T Darien Unavailable Grybowski, T Darien Unavailable Grybowski, T Darien Unavailable Grybowski, T Darien Unavailable Grybowski, T Darien Unavailable Grybowski, T Darien Unavailable Grybowski, T Darien Unavailable Grybowski, T Darien Unavailable Grybowski, T Darien Unavailable Grybowski, T Darien Unavailable Grybowski, T Darien Unavailable Grybowski, T Darien Unavailable Grybowski, T Darien Unavailable Grybowski, T Darien Unavailable Grybowski, T Darien Unavailable Grybowski, T Darien Unavailable Grybowski, T Darien Unavailable Grybowski, T Darien Unavailable Grybowski, T Darien Unavailable Grybowski, T Darien Unavailable Grybowski, T Darien Unavailable Grybowski, T Darien Unavailable Grybowski, T Darien Unavailable Grybowski, T Darien Unavailable Grybowski, T Darien Unavailable Grybowski, T Darien Unavailable Grybowski, T Darien Unavailable Grybowski, T Darien Unavailable Grybowski, T Darien Unavailable Grybowski, T Darien Unavailable + Grybowski, T Darien Unavailable + Grybowski, T Darien Unavailable + Grybowski, T Darien Unavailable + Grybowski, T Darien Unavailable + Grybowski, T Darien Unavailable + Grybowski, T Darien Unavailable + Grybowski, T Darien Unavailable + Grybowski, T Darien Unavailable + Grybowski, T Darien Unavailable + Alberry, D Cheli SIX HORSE HITCH DRIVER Unavailable Unavailable Alberry, D Cheli SIX HORSE HITCH DRIVER Unavailable Unavailable Alberry, D Cheli SIX HORSE HITCH DRIVER Unavailable Unavailable Alberry, D Cheli SIX HORSE HITCH DRIVER Unavailable Unavailable Alberry, D Cheli SIX HORSE HITCH DRIVER Unavailable Unavailable Alberry, D Cheli SIX HORSE HITCH DRIVER Unavailable Unavailable Alberry, D Cheli SIX HORSE HITCH DRIVER Unavailable Unavailable Alberry, D Cheli SIX HORSE HITCH DRIVER Unavailable Unavailable Alberry, D Cheli SIX HORSE HITCH DRIVER Unavailable Unavailable Alberry, D Cheli SIX HORSE HITCH DRIVER Unavailable Unavailable Alberry, D Cheli SIX HORSE HITCH DRIVER Unavailable Unavailable Alberry, D Cheli SIX HORSE HITCH DRIVER Unavailable Unavailable Alberry, D Cheli SIX HORSE HITCH DRIVER Unavailable Unavailable Alberry, D Cheli SIX HORSE HITCH DRIVER Unavailable Unavailable Alberry, D Cheli SIX HORSE HITCH DRIVER Unavailable Unavailable Alberry, D Cheli SIX HORSE HITCH DRIVER Unavailable Unavailable Alberry, D Cheli SIX HORSE HITCH DRIVER Unavailable Unavailable Alberry, D Cheli SIX HORSE HITCH DRIVER Unavailable Unavailable Alberry, D Cheli SIX HORSE HITCH DRIVER Unavailable Unavailable Alberry, D Cheli SIX HORSE HITCH DRIVER Unavailable Unavailable Alberry, D Cheli SIX HORSE HITCH DRIVER Unavailable Unavailable Alberry, D Cheli SIX HORSE HITCH DRIVER Unavailable Unavailable Alberry, D Cheli SIX HORSE HITCH DRIVER Unavailable Unavailable Alberry, D Cheli SIX HORSE HITCH DRIVER Unavailable Unavailable Alberry, D Cheli SIX HORSE HITCH DRIVER Unavailable Unavailable Alberry, D Cheli SIX HORSE HITCH DRIVER Unavailable Unavailable Alberry, D Cheli SIX HORSE HITCH DRIVER Unavailable Unavailable Alberry, D Cheli SIX HORSE HITCH DRIVER Unavailable Unavailable Alberry, D Cheli SIX HORSE HITCH DRIVER Unavailable Unavailable Alberry, D Cheli SIX HORSE HITCH DRIVER Unavailable Unavailable Alberry, D Cheli SIX HORSE HITCH DRIVER Unavailable Unavailable Alberry, D Cheli SIX HORSE HITCH DRIVER Unavailable Unavailable Alberry, D Cheli SIX HORSE HITCH DRIVER Unavailable Unavailable Alberry, D Cheli SIX HORSE HITCH DRIVER Unavailable Unavailable Alberry, D Cheli SIX HORSE HITCH DRIVER Unavailable Unavailable Alberry, D Cheli SIX HORSE HITCH DRIVER Unavailable Unavailable Alberry, D Cheli SIX HORSE HITCH DRIVER Unavailable Unavailable Alberry, D Cheli SIX HORSE HITCH DRIVER Unavailable Unavailable Alberry, D Cheli SIX HORSE HITCH DRIVER Unavailable Unavailable Alberry, D Cheli SIX HORSE HITCH DRIVER Unavailable Unavailable Alberry, D Cheli SIX HORSE HITCH DRIVER Unavailable Unavailable Alberry, D Cheli SIX HORSE HITCH DRIVER Unavailable Unavailable Alberry, D Cheli SIX HORSE HITCH DRIVER Unavailable Unavailable Alberry, D Cheli SIX HORSE HITCH DRIVER Unavailable Unavailable Alberry, D Cheli SIX HORSE HITCH DRIVER Unavailable Unavailable Alberry, D Cheli SIX HORSE HITCH DRIVER Unavailable Unavailable Alberry, D Cheli SIX HORSE HITCH DRIVER Unavailable Unavailable Alberry, D Cheli SIX HORSE HITCH DRIVER Unavailable Unavailable Fish, [facility], PA-C Unavailable Unavailabl e Fish, [facility], PA-C Unavailable Unavailabl e Fish, [facility], PA-C Unavailable Unavailabl e Fish, [facility], PA-C Unavailable Unavailabl e Fish, [facility], PA-C Unavailable Unavailabl e Fish, [facility], PA-C Unavailable Unavailabl e Fish, [facility], PA-C Unavailable Unavailabl e Fish, [facility], PA-C Unavailable Unavailabl e Fish, [facility], PA-C Unavailable Unavailabl e Fish, [facility], PA-C Unavailable Unavailabl e Fish, [facility], PA-C Unavailable Unavailabl e Fish, [facility], PA-C Unavailable Unavailabl e Fish, [facility], PA-C Unavailable Unavailabl e Fish, [facility], PA-C Unavailable Unavailabl e Fish, [facility], PA-C Unavailable Unavailabl e Fish, [facility], PA-C Unavailable Unavailabl e Fish, [facility], PA-C Unavailable Unavailabl e Fish, [facility], PA-C Unavailable Unavailabl e Fish, [facility], PA-C Unavailable Unavailabl e Fish, [facility], PA-C Unavailable Unavailabl e Fish, [facility], PA-C Unavailable Unavailabl e Fish, [facility], PA-C Unavailable Unavailabl e Fish, [facility], PA-C Unavailable Unavailabl e Fish, [facility], PA-C Unavailable Unavailabl e Fish, [facility], PA-C Unavailable Unavailabl e Fish, [facility], PA-C Unavailable Unavailabl e Fish, [facility], PA-C Unavailable Unavailabl e Fish, [facility], PA-C Unavailable Unavailabl e Fish, [facility], PA-C Unavailable Unavailabl e Fish, [facility], PA-C Unavailable Unavailabl e Fish, [facility], PA-C Unavailable Unavailabl e Fish, [facility], PA-C Unavailable Unavailabl e Fish, [facility], PA-C Unavailable Unavailabl e Josh RIVERSHEN Unavailable Unavailable Enriquez, Maria Elena SIX HORSE HITCH DRIVER Unavailable Unavailable Enriquez, Maria Elena SIX HORSE HITCH DRIVER Unavailable Unavailable Enriquez, Maria Elena SIX HORSE HITCH DRIVER Unavailable Unavailable Enriquez, Maria Elena SIX HORSE HITCH DRIVER Unavailable Unavailable Enriquez, Maria Elena SIX HORSE HITCH DRIVER Unavailable Unavailable Enriquez, Maria Elena SIX HORSE HITCH DRIVER Unavailable Unavailable Enriquez, Maria Elena SIX HORSE HITCH DRIVER Unavailable Unavailable Enriquez, Maria Elena SIX HORSE HITCH DRIVER Unavailable Unavailable Enriquez, Maria Elena SIX HORSE HITCH DRIVER Unavailable Unavailable Enriquez, Maria Elena SIX HORSE HITCH DRIVER Unavailable Unavailable Enriquez, Maria Elena SIX HORSE HITCH DRIVER Unavailable Unavailable Enriquez, Maria Elena SIX HORSE HITCH DRIVER Unavailable Unavailable Enriquez, Maria Elena SIX HORSE HITCH DRIVER Unavailable Unavailable Enriquez, Maria Elena SIX HORSE HITCH DRIVER Unavailable Unavailable Enriquez, Maria Elena SIX HORSE HITCH DRIVER Unavailable Unavailable Enriquez, Maria Elena SIX HORSE HITCH DRIVER Unavailable Unavailable Enriquez, Maria Elena SIX HORSE HITCH DRIVER Unavailable Unavailable Enriquez, Maria Elena SIX HORSE HITCH DRIVER Unavailable Unavailable Enriquez, Maria Elena SIX HORSE HITCH DRIVER Unavailable Unavailable Enriquez, Maria Elena SIX HORSE HITCH DRIVER Unavailable Unavailable Enriquez, Maria Elena SIX HORSE HITCH DRIVER Unavailable Unavailable Enriquez, Maria Elena SIX HORSE HITCH DRIVER Unavailable Unavailable Enriquez, Maria Elena SIX HORSE HITCH DRIVER Unavailable Unavailable Enriquez, Maria Elena SIX HORSE HITCH DRIVER Unavailable Unavailable Enriquez, Maria Elena SIX HORSE HITCH DRIVER Unavailable Unavailable Enriquez, Maria Elena SIX HORSE HITCH DRIVER Unavailable Unavailable Enriquez, Maria Elena SIX HORSE HITCH DRIVER Unavailable Unavailable Enriquez, Maria Elena SIX HORSE HITCH DRIVER Unavailable Unavailable Enriquez, Maria Elena SIX HORSE HITCH DRIVER Unavailable Unavailable Enriquez, Maria Elena SIX HORSE HITCH DRIVER Unavailable Unavailable Enriquez, Maria Elena SIX HORSE HITCH DRIVER Unavailable Unavailable Enriquez, Maria Elena SIX HORSE HITCH DRIVER Unavailable Unavailable Enriquez, Maria Elena SIX HORSE HITCH DRIVER Unavailable Unavailable Enriquez, Maria Elena SIX HORSE HITCH DRIVER Unavailable Unavailable Enriquez, Maria Elena SIX HORSE HITCH DRIVER Unavailable Unavailable Enriquez, Maria Elena SIX HORSE HITCH DRIVER Unavailable Unavailable KAYKAY VANEGAS MD Unavailable Unavailable MARKWITH, KAYKAY MD Unavailable Unavailable MARKWITH, KAYKAY MD Unavailable Unavailable MARKWITH, KAYKAY MD Unavailable Unavailable MARKWITH, KAYKAY MD Unavailable Unavailable MARKWITH, KAYKAY MD Unavailable Unavailable MARKWITH, KAYKAY MD Unavailable Unavailable MARKWITH, KAYKAY MD Unavailable Unavailable MARKWITH, KAYKAY MD Unavailable Unavailable MARKWITH, KAYKAY MD Unavailable Unavailable MARKWITH, KAYKAY MD Unavailable Unavailable MARKWITH, KAYKAY MD Unavailable Unavailable MARKWITH, KAYKAY MD Unavailable Unavailable MARKWITH, KAYKAY MD Unavailable Unavailable MARKWITH, KAYKAY MD Unavailable Unavailable MARKWITH, KAYKAY MD Unavailable Unavailable MARKWITH, KAYKAY MD Unavailable Unavailable MARKWITH, KAYKAY MD Unavailable Unavailable MARKWITH, KAYKAY MD Unavailable Unavailable MARKWITH, KAYKAY MD Unavailable Unavailable MARKWITH, KAYKAY MD Unavailable Unavailable MARKWITH, KAYKAY MD Unavailable Unavailable MARKWITH, KAYKAY MD Unavailable Unavailable MARKWITH, KAYKAY MD Unavailable Unavailable MARKWITH, KAYKAY MD Unavailable Unavailable MARKWITH, KAYKAY MD Unavailable Unavailable MARKWITH, KAYKAY MD Unavailable Unavailable MARKWITH, KAYKAY MD Unavailable Unavailable MARKWITH, KAYKAY MD Unavailable Unavailable MARKWITH, KAYKAY MD Unavailable Unavailable MARKWITH, KAYKAY MD Unavailable Unavailable MARKWITH, KAYKAY MD Unavailable Unavailable MARKWITH, KAYKAY MD Unavailable Unavailable Re-disclosure Warning The records that you are about to access may contain information from federally-assisted alcohol or drug abuse programs. If such information is present, then the following federally mandated warning applies: This information has been disclosed to you from records protected by federal confidentiality rules (42 CFR part 2). The federal rules prohibit you from making any further disclosure of this information unless further disclosure is expressly permitted by the written consent of the person to whom it pertains or as otherwise permitted by 42 CFR part 2. A general authorization for the release of medical or other information is NOT sufficient for this purpose. The Federal rules restrict any use of the information to criminally investigate or prosecute any alcohol or drug abuse patient.The records that you are about to access may contain highly sensitive health information, the redisclosure of which is protected by Article 27-F of the [facility] Public Health law. If you continue you may have access to information: Regarding HIV / AIDS; Provided by facilities licensed or operated by the [facility] Office of Mental Health; or Provided by the [facility] Office for People With Developmental Disabilities. If such information is present, then the following [place] mandated warning applies: This information has been disclosed to you from confidential records which are protected by state law. State law prohibits you from making any further disclosure of this information without the specific written consent of the person to whom it pertains, or as otherwise permitted by law. Any unauthorized further disclosure in violation of state law may result in a fine or correction sentence or both. A general authorization for the release of medical or other information is NOT sufficient authorization for further disc losure. Family History Family Member Name Family Member Gender Family Member Status Date o f Status Description Data Source(s) Unknown Unknown Problem MEDENT ([facility]) Unknown Male Problem MEDENT ([facility]) Encounters Encounter Providers Location Date Indications Data Source(s ) Unknown [address] [facility] [place] [address] 07/08/2020 12:00:00 AM EST eCW1 ([facility]) Office Visit Attender: KAYKAY VANEGAS MD Physical Therapy 09:00:00 AM EST MEDENT ([facility]) Unknown [address] [facility] [place] [address] 06/16/2020 12:00:00 AM EST eCW1 ([facility]) Unknown [address] [facility] [place] [address] 06/10/2020 12:00:00 AM EST eCW1 ([facility]) Office Visit Attender: KAYKAY VANEGAS MD Physical Therapy 09:00:00 AM EST MEDENT ([facility]) Unknown [address] [facility] [place] [address] 05/19/2020 12:00:00 AM EST eCW1 ([facility]) Outpatient Attender: Maria Elena GALLEGOPReferrer: Darien winkler 05/18/2020 12:00:00 PM EST - 05/18/2020 12:00:00 PM EST [facility] Unknown [address] [facility] [place] [address] 05/14/2020 12:00:00 AM EST eCW1 ([facility]) Outpatient Attender: Maria Elena GALLEGOPReferrer: Darien Yennifer friedmani 05/13/2020 10:30:00 AM [facility] Outpatient Attender: ALTHEA KIMBROUGH MD Main office - [facility] 05/04/2020 12:00:00 PM EST MEDENT ([facility]) Unknown [address] [facility] [address] 05/01/2020 12:00:00 AM EST eCW1 ([facility]) Unknown [address] [facility] [address] 04/29/2020 12:00:00 AM EST eCW1 ([facility]) Outpatient Attender: KAYKAY MATTHEWS [facility] 04/12 02:00:00 PM EST MEDENT ([facility] Unknown [address] [facility] [address] 04/24/2020 12:00:00 AM EST eCW1 ([facility]) Outpatient Attender: KAYKAY MATTHEWS [facility] 03/14 02:15:00 PM EDT MEDENT ([facility] Unknown [address] [facility] [address] 04/10/2020 12:00:00 AM EDT eCW1 ([facility]) Unknown [address] [facility] [address] 03/30/2020 12:00:00 AM EDT eCW1 ([facility]) Office Visit Attender: KAYKAY VANEGAS MD Physical Therapy 03:15:00 PM EDT MEDENT ([facility]) Unknown [address] [facility] [address] 03/11/2020 12:00:00 AM EDT eCW1 [facility] Office Visit Attender: Birgit CARBALLO PA-C Physical Therapy 02/11/2020 01:15:00 PM EDT MED[facility] ([facility]) [place] [address] [facility] [address] [place] [address] 12/27/2019 12:00:00 AM EDT eCW1 ([facility]) [place] [address] [facility] [address] [place] [address] 12/24/2019 12:00:00 AM EDT eCW1 ([facility]) [place] [address] [facility] [address] [place] [address] 12/24/2019 12:00:00 AM EDT eCW1 ([facility]) [place] [address] [facility] [address] [place] [address] 11/29/2019 12:00:00 AM EDT eCW1 ([facility]) [place] [address] [facility] [address] [place] [address] 11/12/2019 12:00:00 AM EDT eCW1 ([facility]) [facility] [address] [facility] [address] [place] [address] 10/30/2019 12:00:00 AM EDT eCW1 ([facility]) [facility] [address] [facility] [place] [address] 10/23/2019 12:00:00 AM EDT eCW1 ([facility]) [facility] [address] [facility] [place] [address] 10/14/2019 12:00:00 AM EDT eCW1 ([facility]) [facility] [address] [facility] [place] [address] 10/04/2019 12:00:00 AM EDT eCW1 ([facility]) Outpatient Attender: Birgit CARBALLO PA-C Physical Therapy 10/03/2019 09:00:00 AM EDT MEDENT ([facility]) [facility] [address] [place] [address] 09/18/2019 12:00:00 AM EDT eCW1 ([facility]) Outpatient Attender: Birgit CARBALLO PA-C Physical Therapy 09/12/2019 01:15:00 PM EDT MEDENT ([facility]) [address] [place] [address] 09/09/2019 12:00:00 AM EDT [facility]CW1 [facility] [address] [place] [address] 08/19/2019 12:00:00 AM EDT [facility]CW1 [facility] [address] [address] 08/08/2019 12:00:00 AM EST [facility] [address] [place] [address] 08/02/2019 12:00:00 AM EST [facility]CW1 [facility] Emergency Attender: IVETT Alfaroer: Abhijeet Rivers EMERGENCY ROOM-ER 08/01/2019 01:21:00 PM EST - 08/01/2019 03:25:00 PM [facility] Patient discharged. [address] [place] [address] 08/01/2019 12:00:00 AM EST [facility]CW1 ([facility]) [address] [place] [address] 08/01/2019 12:00:00 AM EST [facility]CW1 ([facility] [address] [place] [address] 06/25/2019 12:00:00 AM EST [facility]CW1 ([facility] [address] [place] [address] 06/24/2019 12:00:00 AM EST eCW1 ([facility]) Outpatient Attender: Darien Odom ttender: DARIEN RIVERSReferrer: Darien Rivers 05/16/2019 12:30:00 PM [facility] Outpatient Attender: Darien Odom ttender: DARIEN RIVERSReferrer: Cheli GALLEGOP 05/08/2019 12:00:00 PM EST - 05/08/2019 12:00:00 PM [facility] Medications Medication Brand Name Start Date Product Form Dose Route Admi nistrative Instructions Pharmacy Instructions Status Indications Reaction Description Data Source(s) 5-325 mg 07/01/2020 12:00:00 AM EST tablet 20 TAKE ONE TABLET BY MOUTH EVERY DAY NEEDED MAXIMUM DAILY DOSE = 1 TABLET TAKE ONE TABLET BY MOUTH EVERY DAY NEEDED MAXIMUM DAILY DOSE = 1 TABLET SOLD: 07/01/2020 [facility] Acetaminophen 325 MG / Oxycodone Hydrochloride 5 MG Or al Tablet Oxycodone-Acetaminophen 07/01/2020 12:00:00 AM EST completed MEDENT ([facility] ) Escitalopram 20 MG Oral Tablet ESCITALOPRAM OXALATE 06/21/2020 1 2:00:00 AM EST tablet 30 TAKE ONE TABLET BY MOUTH EVERY D AY TAKE ONE TABLET BY MOUTH EVERY DAY SOLD: 07/01/2020 [facility] 5-325 mg 06/19/2020 12:00:00 AM EST tablet 10 TAKE ONE TABLET BY MOUTH EVERY 12 HOURS FOR PAIN MAX=2TABS/DAY TAKE ONE TABLET BY MOUTH EVERY 12 HOURS FOR PAIN MAX=2TABS/DAY SOLD: 06/20/2020 [facility] 50 mg 06/13/2020 12:00:00 AM EST tablet 21 TAKE ONE TABLET BY MOUTH THREE TIMES A DAY NEEDED MAX=3TABS/DAY TAKE ONE TABLET BY MOUTH THREE TIMES A D AY NEEDED MAX=3TABS/DAY SOLD: 06/13/2020 [facility] 5-325 mg 06/10/2020 12:00:00 AM EST tablet 15 TAKE ONE TABLET BY MOUTH EVERY 8 HOURS NEEDED FOR PAIN MAXIMUM DAILY DOSE = 3 TABLETS TAKE ONE TABLET BY MOUTH EVERY 8 HOURS NEEDED FOR PAIN MAXIMUM DAILY DOSE = 3 TABLETS SOLD: 06/13/2020 [facility] Escitalopram 10 MG Oral Tablet ESCITALOPRAM OXALATE 06/03/2020 1 2:00:00 AM EST tablet 30 TAKE ONE TABLET BY MOUTH EVERY D AY TAKE ONE TABLET BY MOUTH EVERY DAY SOLD: 07/01/2020 [facility] Escitalopram 10 MG Oral Tablet ESCITALOPRAM OXALATE 06/03/2020 1 2:00:00 AM EST tablet 30 TAKE ONE TABLET BY MOUTH EVERY D AY TAKE ONE TABLET BY MOUTH EVERY DAY SOLD: 06/03/2020 [facility] 375 mg 05/29/2020 12:00:00 AM EST tablet 60 TAKE ONE TABLET BY MOUTH TWICE A DAY AFTER MEALS TAKE ONE TABLET BY MOUTH TWICE A DAY AFTER MEALS SOLD: 05/30/2020 [facility] [facility] 5-325 mg 05/29/2020 12:00:00 AM EST tablet 28 TAKE ONE TABLET BY MOUTH EVERY 8 HOURS NEEDED FOR POST OP PAIN MAX=3TABS/DAY TAKE ONE TABLET BY MOUTH EVERY 8 HOURS NEEDED FOR POST OP PAIN MAX=3TABS/DAY SOLD: 05/30/2020 [facility] Naproxen 375 MG Oral Tablet Naproxen 05/29/2020 12:00:00 AM EST ORAL active [facility] ([facility]) 5-325 mg 05/22/2020 12:00:00 AM EST tablet 30 TAKE ONE TO TWO TABLETS BY MOUTH EVERY 4 HOURS NEEDED FOR POST OP PAIN MAX=6TABS/DAY TAKE ONE TO TWO TABLETS BY MOUTH EVERY 4 HOURS NEEDED FOR POST OP PAIN MAX=6TABS/DAY SOLD: 05/23/2020 [facility] 5-325 mg 05/14/2020 12:00:00 AM EST tablet 30 TAKE ONE TO TWO TABLETS BY MOUTH EVERY 4 HOURS NEEDED FOR POST OP PAIN MAXIMUM DAILY DOSE = SIX TABLETS TAKE ONE TO TWO TABLETS BY MOUTH EVERY 4 HOURS NEEDED FOR POST OP PAIN MAXIMUM DAILY DOSE = SIX TABLETS SOLD: 05/17/2020 [facility] 15 mg 05/14/2020 12:00:00 AM EST tablet extended release 4 TAKE ONE TABLET BY MOUTH EVERY 12 HOURS NEEDED FOR POST SURGICAL PAIN MAXIMUM DAILY DOSE = TWO TABLETS TAKE ONE TABLET BY MOUTH EVERY 12 HOURS NEEDED FOR POST SURGICAL PAIN MAXIMUM DAILY DOSE = TWO TABLETS SOLD: 05/17/2020 [facility] 50 mg 05/05/2020 12:00:00 AM EST capsule 60 TAKE ONE CAPSULE BY MOUTH EVERY DAY FOR 2 WEEKS THEN TWO CAPSULES DAILY (TAKEN WITH 100MG CAPSULE) TAKE ONE CAPSULE BY MOUTH EVERY DAY FOR 2 WEEKS THEN TWO CAPSULES DAILY (TAKEN WITH 100MG CAPSULE) SOLD: 05/06/2020 [facility] 50 mg 05/05/2020 12:00:00 AM EST capsule 60 TAKE ONE CAPSULE BY MOUTH EVERY DAY FOR 2 WEEKS THEN TWO CAPSULES DAILY (TAKEN WITH 100MG CAPSULE) TAKE ONE CAPSULE BY MOUTH EVERY DAY FOR 2 WEEKS THEN TWO CAPSULES DAILY (TAKEN WITH 100MG CAPSULE) SOLD: 06/03/2020 [facility] zonisamide 50 MG Oral Capsule Zonisamide 05/04/2020 12:00:00 AM EST ORAL active [facility] ([facility], ) pantoprazole 40 MG Delayed Release Oral Tablet PANTOPRAZOLE SODIUM 05/01/2020 12:00:00 AM EST tablet,delayed release (DR/EC) 30 T HANDY ONE TABLET BY MOUTH EVERY DAY TAKE ONE TABLET BY MOUTH EVERY DAY SOLD: 05/06/2020 [facility] 100 mg 05/01/2020 12:00:00 AM EST capsule 60 TAKE ONE CAPSULE BY MOUTH TWICE A DAY TAKE ONE CAPSULE BY MOUTH TWICE A DAY SOLD: 06/03/2020 [facility] 25 mg 05/01/2020 12:00:00 AM EST capsule 30 TAKE ONE CAPSULE BY MOUTH EVERY DAY TAKE ONE CAPSULE BY MOUTH EVERY DAY SOLD: 07/01/2020 [facility] 54 mg 05/01/2020 12:00:00 AM EST tablet 30 TAKE ONE TABLET BY MOUTH EVERY DAY WITH A MEAL TAKE ONE TABLET BY MOUTH EVERY DAY WITH A MEAL SOLD: [facility] 20 mg 05/01/2020 12:00:00 AM EST tablet 60 TAKE ONE TABLET BY MOUTH TWICE A DAY TAKE ONE TABLET BY MOUTH TWICE A DAY SOLD: 05/06/2020 [facility] atorvastatin 40 MG Oral Tablet ATORVASTATIN CALCIUM 05/01/2020 1 2:00:00 AM EST tablet 30 TAKE ONE TABLET BY MOUTH EVERY D AY TAKE ONE TABLET BY MOUTH EVERY DAY SOLD: 06/03/2020 [facility] atorvastatin 40 MG Oral Tablet ATORVASTATIN CALCIUM 05/01/2020 1 2:00:00 AM EST tablet 30 TAKE ONE TABLET BY MOUTH EVERY D AY TAKE ONE TABLET BY MOUTH EVERY DAY SOLD: 05/06/2020 [facility] Fenofibrate 54 MG Oral Tablet FENOFIBRATE 05/01/2020 12:00:00 AM EST tablet 30 TAKE ONE TABLET BY MOUTH EVERY DAY WITH A MEAL TAKE ON E TABLET BY MOUTH EVERY DAY WITH A MEAL SOLD: 06/03/2020 [facility] Fenofibrate 54 MG Oral Tablet FENOFIBRATE 05/01/2020 12:00:00 AM EST tablet 30 TAKE ONE TABLET BY MOUTH EVERY DAY WITH A MEAL TAKE ON E TABLET BY MOUTH EVERY DAY WITH A MEAL SOLD: 05/06/2020 [facility] 100 mg 05/01/2020 12:00:00 AM EST capsule 60 TAKE ONE CAPSULE BY MOUTH TWICE A DAY TAKE ONE CAPSULE BY MOUTH TWICE A DAY SOLD: 07/01/2020 [facility] 25 mg 05/01/2020 12:00:00 AM EST capsule 30 TAKE ONE CAPSULE BY MOUTH EVERY DAY TAKE ONE CAPSULE BY MOUTH EVERY DAY SOLD: 05/06/2020 [facility] 100 mg 05/01/2020 12:00:00 AM EST capsule 60 TAKE ONE CAPSULE BY MOUTH TWICE A DAY TAKE ONE CAPSULE BY MOUTH TWICE A DAY SOLD: 05/06/2020 [facility] 20 mg 05/01/2020 12:00:00 AM EST tablet 60 TAKE ONE TABLET BY MOUTH TWICE A DAY TAKE ONE TABLET BY MOUTH TWICE A DAY SOLD: 06/03/2020 [facility] 20 mg 05/01/2020 12:00:00 AM EST tablet 60 TAKE ONE TABLET BY MOUTH TWICE A DAY TAKE ONE TABLET BY MOUTH TWICE A DAY SOLD: 07/01/2020 [facility] pantoprazole 40 MG Delayed Release Oral Tablet PANTOPRAZOLE SODIUM 05/01/2020 12:00:00 AM EST tablet,delayed release (DR/EC) 30 T HANDY ONE TABLET BY MOUTH EVERY DAY TAKE ONE TABLET BY MOUTH EVERY DAY SOLD: 07/01/2020 [facility] atorvastatin 40 MG Oral Tablet ATORVASTATIN CALCIUM 05/01/2020 1 2:00:00 AM EST tablet 30 TAKE ONE TABLET BY MOUTH EVERY D AY TAKE ONE TABLET BY MOUTH EVERY DAY SOLD: 07/01/2020 [facility] 25 mg 05/01/2020 12:00:00 AM EST capsule 30 TAKE ONE CAPSULE BY MOUTH EVERY DAY TAKE ONE CAPSULE BY MOUTH EVERY DAY SOLD: 06/03/2020 [facility] pantoprazole 40 MG Delayed Release Oral Tablet PANTOPRAZOLE SODIUM 05/01/2020 12:00:00 AM EST tablet,delayed release (DR/EC) 30 T HANDY ONE TABLET BY MOUTH EVERY DAY TAKE ONE TABLET BY MOUTH EVERY DAY SOLD: 06/03/2020 [facility] 50 mg 04/29/2020 12:00:00 AM EST tablet 21 TAKE ONE TABLET BY MOUTH THREE TIMES A DAY NEEDED MAX=3TABS/DAY TAKE ONE TABLET BY MOUTH THREE TIMES A D AY NEEDED MAX=3TABS/DAY SOLD: 04/30/2020 [facility] 1,250 mcg (50,000 unit) 04/17/2020 12:00:00 AM EST capsule 4 TAKE ONE CAPSULE BY MOUTH WEEKLY TAKE ONE CAPSULE BY MOUTH WEEKLY SOLD: 05/23/2020 [facility] 1,250 mcg (50,000 unit) 04/17/2020 12:00:00 AM EST capsule 4 TAKE ONE CAPSULE BY MOUTH WEEKLY TAKE ONE CAPSULE BY MOUTH WEEKLY SOLD: 04/21/2020 [facility] 1,250 mcg (50,000 unit) 04/17/2020 12:00:00 AM EST capsule 4 TAKE ONE CAPSULE BY MOUTH WEEKLY TAKE ONE CAPSULE BY MOUTH WEEKLY SOLD: 06/20/2020 [facility] 100 mg 04/17/2020 12:00:00 AM EST capsule 60 TAKE ONE CAPSULE BY MOUTH TWICE A DAY TAKE ONE CAPSULE BY MOUTH TWICE A DAY SOLD: 04/21/2020 [facility] Escitalopram 20 MG Oral Tablet ESCITALOPRAM OXALATE 04/17/2020 1 2:00:00 AM EST tablet 30 TAKE ONE TABLET BY MOUTH ONCE DA CHIO TAKE ONE TABLET BY MOUTH ONCE DAILY SOLD: 04/21/2020 [facility] Escitalopram 20 MG Oral Tablet ESCITALOPRAM OXALATE 04/17/2020 1 2:00:00 AM EST tablet 30 TAKE ONE TABLET BY MOUTH ONCE DA CHIO TAKE ONE TABLET BY MOUTH ONCE DAILY SOLD: 05/23/2020 [facility] 500 mg 04/10/2020 12:00:00 AM EDT tablet 60 TAKE ONE TABLET BY MOUTH TWICE A DAY WITH FOOD TAKE ONE TABLET BY MOUTH TWICE A DAY WITH FOOD SOLD: 06/20/2020 [facility] 500 mg 04/10/2020 12:00:00 AM EDT tablet 60 TAKE ONE TABLET BY MOUTH TWICE A DAY WITH FOOD TAKE ONE TABLET BY MOUTH TWICE A DAY WITH FOOD SOLD: 04/11/2020 [facility] 500 mg 04/10/2020 12:00:00 AM EDT tablet 60 TAKE ONE TABLET BY MOUTH TWICE A DAY WITH FOOD TAKE ONE TABLET BY MOUTH TWICE A DAY WITH FOOD SOLD: 05/17/2020 [facility] No Active Medications 04/10/2020 12:00:00 AM EDT completed [facility] ([facility] Naproxen 500 MG Oral Tablet Naproxen 04/10/2020 12:00:00 AM EDT active [facility] ([facility] Morphine Sulfate 15 MG Extended Release Oral Tablet [MS Cont in] MS Contin 04/08/2020 12:00:00 AM EDT ORAL completed [facility] ([facility]) Acetaminophen 325 MG / Oxycodone Hydrochloride 5 MG Or al Tablet [Percocet] Percocet 04/08/2020 12:00:00 AM EDT ORAL completed [facility] ([facility]) 50 mg 03/31/2020 12:00:00 AM EDT tablet 21 TAKE ONE TABLET BY MOUTH THREE TIMES A DAY NEEDED MAXIMUM DAILY DOSE = 3 TABLETS TAKE ONE TABLET BY MOUTH THREE TIMES A DAY NEEDED MAXIMUM DAILY DOSE = 3 TABLETS SOLD: 04/04/2020 [facility] 400 mg (241.3 mg magnesium) 03/16/2020 12:00:00 AM EDT table t 30 TAKE ONE TABLET BY MOUTH EVERY DAY WITH FOOD TAKE ONE TABLET BY MOUTH EVERY DAY WITH FOOD SOLD: 07/01/2020 [facility] 400 mg (241.3 mg magnesium) 03/16/2020 12:00:00 AM EDT table t 30 TAKE ONE TABLET BY MOUTH EVERY DAY WITH FOOD TAKE ONE TABLET BY MOUTH EVERY DAY WITH FOOD SOLD: 05/23/2020 [facility] 400 mg (241.3 mg magnesium) 03/16/2020 12:00:00 AM EDT table t 30 TAKE ONE TABLET BY MOUTH EVERY DAY WITH FOOD TAKE ONE TABLET BY MOUTH EVERY DAY WITH FOOD SOLD: 04/21/2020 [facility] 400 mg (241.3 mg magnesium) 03/16/2020 12:00:00 AM EDT table t 30 TAKE ONE TABLET BY MOUTH EVERY DAY WITH FOOD TAKE ONE TABLET BY MOUTH EVERY DAY WITH FOOD SOLD: 03/21/2020 [facility] 50 mg 03/11/2020 12:00:00 AM EDT tablet 21 TAKE ONE TABLET BY MOUTH THREE TIMES A DAY NEEDED MAX=3TABS/DAY TAKE ONE TABLET BY MOUTH THREE TIMES A D AY NEEDED MAX=3TABS/DAY SOLD: 03/11/2020 [facility] 50 mg 02/27/2020 12:00:00 AM EDT tablet 21 TAKE ONE TABLET BY MOUTH THREE TIMES A DAY NEEDED MAXIMUM DAILY DOSE = 3 TABLETS TAKE ONE TABLET BY MOUTH THREE TIMES A DAY NEEDED MAXIMUM DAILY DOSE = 3 TABLETS SOLD: 02/28/2020 [facility] 24 mcg 02/16/2020 12:00:00 AM EDT capsule 60 TAKE ONE CAPSULE BY MOUTH TWICE A DAY WITH FOOD AND WATER TAKE ONE CAPSULE BY MOUTH TWICE A DAY WI TH FOOD AND WATER SOLD: 02/16/2020 [facility] 50 mg 02/11/2020 12:00:00 AM EDT tablet 21 TAKE ONE TABLET BY MOUTH THREE TIMES A DAY NEEDED, MAXIMUM DAILY DOSE = THREE TABLETS TAKE ONE TABLET BY MOUTH THREE TIMES A DAY NEEDED, MAXIMUM DAILY DOSE = THREE TABLETS SOLD: 02/16/2020 [facility] Escitalopram 10 MG Oral Tablet ESCITALOPRAM OXALATE 01/26/2020 1 2:00:00 AM EDT tablet 30 TAKE ONE TABLET BY MOUTH EVERY D AY TAKE ONE TABLET BY MOUTH EVERY DAY SOLD: 02/28/2020 [facility] Escitalopram 10 MG Oral Tablet ESCITALOPRAM OXALATE 01/26/2020 1 2:00:00 AM EDT tablet 30 TAKE ONE TABLET BY MOUTH EVERY D AY TAKE ONE TABLET BY MOUTH EVERY DAY SOLD: 01/28/2020 [facility] Escitalopram 10 MG Oral Tablet ESCITALOPRAM OXALATE 01/26/2020 1 2:00:00 AM EDT tablet 30 TAKE ONE TABLET BY MOUTH EVERY D AY TAKE ONE TABLET BY MOUTH EVERY DAY SOLD: 05/06/2020 [facility] Escitalopram 10 MG Oral Tablet ESCITALOPRAM OXALATE 01/26/2020 1 2:00:00 AM EDT tablet 30 TAKE ONE TABLET BY MOUTH EVERY D AY TAKE ONE TABLET BY MOUTH EVERY DAY SOLD: 04/04/2020 [facility] 50 mg 01/17/2020 12:00:00 AM EDT tablet 21 TAKE ONE TABLET BY MOUTH THREE TIMES A DAY NEEDED MAX = 3TABS/DAY TAKE ONE TABLET BY MOUTH THREE TIMES A D AY NEEDED MAX = 3TABS/DAY SOLD: 01/18/2020 [facility] Escitalopram 20 MG Oral Tablet ESCITALOPRAM OXALATE 12/30/2019 1 2:00:00 AM EDT tablet 30 TAKE ONE TABLET BY MOUTH EVERY D AY TAKE ONE TABLET BY MOUTH EVERY DAY SOLD: 01/18/2020 [facility] Escitalopram 20 MG Oral Tablet ESCITALOPRAM OXALATE 12/30/2019 1 2:00:00 AM EDT tablet 30 TAKE ONE TABLET BY MOUTH EVERY D AY TAKE ONE TABLET BY MOUTH EVERY DAY SOLD: 03/21/2020 [facility] Escitalopram 20 MG Oral Tablet ESCITALOPRAM OXALATE 12/30/2019 1 2:00:00 AM EDT tablet 30 TAKE ONE TABLET BY MOUTH EVERY D AY TAKE ONE TABLET BY MOUTH EVERY DAY SOLD: 02/16/2020 [facility] Ibuprofen 600 MG Oral Tablet Ibuprofen 600 MG 12/24/2019 12:00:00 AM E DT active Ibuprofen 600 MG eCW1 ([facility]) Ibuprofen 600 MG Oral Tablet Ibuprofen 600 MG 12/24/2019 12:00:00 AM E DT active Ibuprofen 600 MG eCW1 ([facility]) Ibuprofen 600 MG Oral Tablet Ibuprofen 600 MG 12/24/2019 12:00:00 AM E DT active Ibuprofen 600 MG eCW1 ([facility]) Ibuprofen 600 MG Oral Tablet Ibuprofen 600 MG 12/24/2019 12:00:00 AM E DT active Ibuprofen 600 MG eCW1 ([facility]) Ibuprofen 600 MG Oral Tablet Ibuprofen 600 MG 12/24/2019 12:00:00 AM E DT active Ibuprofen 600 MG eCW1 ([facility]) Ibuprofen 600 MG Oral Tablet Ibuprofen 600 MG 12/24/2019 12:00:00 AM E DT active Ibuprofen 600 MG eCW1 ([facility]) Ibuprofen 600 MG Oral Tablet Ibuprofen 600 MG 12/24/2019 12:00:00 AM E DT active Ibuprofen 600 MG eCW1 ([facility]) Ibuprofen 600 MG Oral Tablet Ibuprofen 600 MG 12/24/2019 12:00:00 AM E DT active Ibuprofen 600 MG eCW1 ([facility]) Ibuprofen 600 MG Oral Tablet Ibuprofen 600 MG 12/24/2019 12:00:00 AM E DT active Ibuprofen 600 MG eCW1 ([facility]) Ibuprofen 600 MG Oral Tablet Ibuprofen 600 MG 12/24/2019 12:00:00 AM E DT active Ibuprofen 600 MG eCW1 ([facility]) Ibuprofen 600 MG Oral Tablet Ibuprofen 600 MG 12/24/2019 12:00:00 AM E DT active Ibuprofen 600 MG eCW1 ([facility]) Ibuprofen 600 MG Oral Tablet Ibuprofen 600 MG 12/24/2019 12:00:00 AM E DT active Ibuprofen 600 MG eCW1 ([facility]) 600 mg 12/24/2019 12:00:00 AM EDT tablet 30 TAKE ONE TABLET BY MOUTH THREE TIMES A DAY NEEDED, WITH FOOD OR MILK TAKE ONE TABLET BY MOUTH THREE TIMES A DAY NEEDED, WITH FOOD OR MILK SOLD: 12/24/2019 [facility] 600 mg 12/24/2019 12:00:00 AM EDT tablet 30 TAKE ONE TABLET BY MOUTH THREE TIMES A DAY NEEDED, WITH FOOD OR MILK TAKE ONE TABLET BY MOUTH THREE TIMES A DAY NEEDED, WITH FOOD OR MILK SOLD: 05/17/2020 [facility] Ibuprofen 600 MG Oral Tablet Ibuprofen 600 MG 12/24/2019 12:00:00 AM E DT active Ibuprofen 600 MG eCW1 ([facility]) Ibuprofen 600 MG Oral Tablet Ibuprofen 600 MG 12/24/2019 12:00:00 AM E DT active Ibuprofen 600 MG eCW1 ([facility]) 50 mg 12/11/2019 12:00:00 AM EDT tablet 21 TAKE ONE TABLET BY MOUTH THREE TIMES A DAY NEEDED MAXIMUM DAILY DOSE = 3 TABLETS TAKE ONE TABLET BY MOUTH THREE TIMES A DAY NEEDED MAXIMUM DAILY DOSE = 3 TABLETS SOLD: 12/13/2019 [facility] 24 mcg 12/01/2019 12:00:00 AM EDT capsule 60 TAKE ONE CAPSULE BY MOUTH TWICE A DAY WITH FOOD AND WATER TAKE ONE CAPSULE BY MOUTH TWICE A DAY WI FOOD AND WATER SOLD: 01/18/2020 [facility] 24 mcg 12/01/2019 12:00:00 AM EDT capsule 60 TAKE ONE CAPSULE BY MOUTH TWICE A DAY WITH FOOD AND WATER TAKE ONE CAPSULE BY MOUTH TWICE A DAY WI TH FOOD AND WATER SOLD: 12/09/2019 [facility] lubiprostone 0.024 MG Oral Capsule [Amitiza] Amitiza 24 MCG [facility] 24 MCG 11/29/2019 12:00:00 AM EDT active Amitiza 24 MCG eCW1 ([facility]) lubiprostone 0.024 MG Oral Capsule [Amitiza] Amitiza 24 MCG [facility] 24 MCG 11/29/2019 12:00:00 AM EDT active Amitiza 24 MCG eCW1 ([facility]) lubiprostone 0.024 MG Oral Capsule [Amitiza] Amitiza 24 MCG [facility] 24 MCG 11/29/2019 12:00:00 AM EDT active Amitiza 24 MCG eCW1 ([facility]) lubiprostone 0.024 MG Oral Capsule [Amitiza] Amitiza 24 MCG [facility] 24 MCG 11/29/2019 12:00:00 AM EDT active Amitiza 24 MCG eCW1 ([facility]) lubiprostone 0.024 MG Oral Capsule [Amitiza] A[facility]iza 24 MCG [facility] 24 MCG 11/29/2019 12:00:00 AM EDT active Amitiza 24 MCG eCW1 ([facility]) lubiprostone 0.024 MG Oral Capsule [Amitiza] Amitiza 24 MCG [facility] 24 MCG 11/29/2019 12:00:00 AM EDT active Amitiza 24 MCG eCW1 ([facility]) lubiprostone 0.024 MG Oral Capsule [Amitiza] Amitiza 24 MCG [facility] 24 MCG 11/29/2019 12:00:00 AM EDT active Amitiza 24 MCG eCW1 ([facility]) lubiprostone 0.024 MG Oral Capsule [Amitiza] Amitiza 24 MCG [facility] 24 MCG 11/29/2019 12:00:00 AM EDT active Amitiza 24 MCG eCW1 ([facility]) lubiprostone 0.024 MG Oral Capsule [Amitiza] Amitiza 24 MCG [facility] 24 MCG 11/29/2019 12:00:00 AM EDT active Amitiza 24 MCG eCW1 ([facility]) lubiprostone 0.024 MG Oral Capsule [Amitiza] Amitiza 24 MCG [facility] 24 MCG 11/29/2019 12:00:00 AM EDT active Amitiza 24 MCG eCW1 ([facility]) lubiprostone 0.024 MG Oral Capsule [Amitiza] Amitiza 24 MCG [facility] 24 MCG 11/29/2019 12:00:00 AM EDT active Amitiza 24 MCG eCW1 ([facility]) lubiprostone 0.024 MG Oral Capsule [Amitiza] Amitiza 24 MCG [facility] 24 MCG 11/29/2019 12:00:00 AM EDT active Amitiza 24 MCG eCW1 ([facility]) lubiprostone 0.024 MG Oral Capsule [Amitiza] Amitiza 24 MCG [facility] 24 MCG 11/29/2019 12:00:00 AM EDT active Amitiza 24 MCG eCW1 ([facility]) lubiprostone 0.024 MG Oral Capsule [Amitiza] Amitiza 24 MCG [facility] 24 MCG 11/29/2019 12:00:00 AM EDT active Amitiza 24 MCG eCW1 ([facility]) lubiprostone 0.024 MG Oral Capsule [Amitiza] [facility]iza 24 MCG [facility] 24 MCG 11/29/2019 12:00:00 AM EDT active Amitiza 24 MCG eCW1 ([facility]) 50 mg 11/13/2019 12:00:00 AM EDT tablet 21 TAKE ONE TABLET BY MOUTH THREE TIMES A DAY NEEDED MAXIMUM DAILY DOSE = 3 TABLETS TAKE ONE TABLET BY MOUTH THREE TIMES A DAY NEEDED MAXIMUM DAILY DOSE = 3 TABLETS SOLD: 11/16/2019 [facility] 50 mg 10/31/2019 12:00:00 AM EDT tablet 21 TAKE ONE TABLET BY MOUTH THREE TIMES A DAY NEEDED MAXIMUM DAILY DOSE = 3 TABLETS TAKE ONE TABLET BY MOUTH THREE TIMES A DAY NEEDED MAXIMUM DAILY DOSE = 3 TABLETS SOLD: 11/01/2019 [facility] Docusate Sodium 100 MG Oral Capsule DOCUSATE SODIUM 10/23/2019 1 2:00:00 AM EDT capsule 60 TAKE ONE CAPSULE BY MOUTH TWICE A DAY TAKE ONE CAPSULE BY MOUTH TWICE A DAY SOLD: 01/18/2020 [facility] 100 mg 10/23/2019 12:00:00 AM EDT capsule 60 TAKE ONE CAPSULE BY MOUTH TWICE A DAY TAKE ONE CAPSULE BY MOUTH TWICE A DAY SOLD: 03/21/2020 [facility] 100 mg 10/23/2019 12:00:00 AM EDT capsule 60 TAKE ONE CAPSULE BY MOUTH TWICE A DAY TAKE ONE CAPSULE BY MOUTH TWICE A DAY SOLD: 12/20/2019 [facility] 100 mg 10/23/2019 12:00:00 AM EDT capsule 60 TAKE ONE CAPSULE BY MOUTH TWICE A DAY TAKE ONE CAPSULE BY MOUTH TWICE A DAY SOLD: 02/16/2020 [facility] 100 mg 10/23/2019 12:00:00 AM EDT capsule 60 TAKE ONE CAPSULE BY MOUTH TWICE A DAY TAKE ONE CAPSULE BY MOUTH TWICE A DAY SOLD: 10/26/2019 [facility] 100 mg 10/23/2019 12:00:00 AM EDT capsule 60 TAKE ONE CAPSULE BY MOUTH TWICE A DAY TAKE ONE CAPSULE BY MOUTH TWICE A DAY SOLD: 11/21/2019 [facility] 100,000 unit/gram 10/15/2019 12:00:00 AM EDT powder 60 APPLY TO AFFECTED AREA(S) TWO TIMES A DAY NEEDED APPLY TO AFFECTED AREA(S) TWO TIMES A DA Y NEEDED SOLD: 10/26/2019 [facility] Fenofibrate 54 MG Oral Tablet FENOFIBRATE 10/14/2019 12:00:00 AM EDT tablet 30 TAKE ONE TABLET BY MOUTH EVERY DAY WITH A MEAL TAKE ON E TABLET BY MOUTH EVERY DAY WITH A MEAL SOLD: 10/26/2019 [facility] 20 mg 10/14/2019 12:00:00 AM EDT tablet 60 TAKE ONE TABLET BY MOUTH TWICE A DAY TAKE ONE TABLET BY MOUTH TWICE A DAY SOLD: 11/28/2019 [facility] Fenofibrate 54 MG Oral Tablet FENOFIBRATE 10/14/2019 12:00:00 AM EDT tablet 30 TAKE ONE TABLET BY MOUTH EVERY DAY WITH A MEAL TAKE ON E TABLET BY MOUTH EVERY DAY WITH A MEAL SOLD: 11/28/2019 [facility] 40 mg 10/14/2019 12:00:00 AM EDT tablet 30 TAKE ONE TABLET BY MOUTH EVERY DAY TAKE ONE TABLET BY MOUTH EVERY DAY SOLD: 11/28/2019 [facility] 40 mg 10/14/2019 12:00:00 AM EDT tablet 30 TAKE ONE TABLET BY MOUTH EVERY DAY TAKE ONE TABLET BY MOUTH EVERY DAY SOLD: 12/28/2019 [facility] Fenofibrate 54 MG Oral Tablet FENOFIBRATE 10/14/2019 12:00:00 AM EDT tablet 30 TAKE ONE TABLET BY MOUTH EVERY DAY WITH A MEAL TAKE ON E TABLET BY MOUTH EVERY DAY WITH A MEAL SOLD: 02/28/2020 [facility] 40 mg 10/14/2019 12:00:00 AM EDT tablet,delayed release (DR/EC) 30 TAKE ONE TABLET BY MOUTH EVERY DAY TAKE ONE TABLET BY MOUTH EVERY DAY SOLD: 10/26/2019 [facility] Fenofibrate 54 MG Oral Tablet FENOFIBRATE 10/14/2019 12:00:00 AM EDT tablet 30 TAKE ONE TABLET BY MOUTH EVERY DAY WITH A MEAL TAKE ON E TABLET BY MOUTH EVERY DAY WITH A MEAL SOLD: 12/28/2019 [facility] 40 mg 10/14/2019 12:00:00 AM EDT tablet,delayed release (DR/EC) 30 TAKE ONE TABLET BY MOUTH EVERY DAY TAKE ONE TABLET BY MOUTH EVERY DAY SOLD: 01/28/2020 [facility] 40 mg 10/14/2019 12:00:00 AM EDT tablet,delayed release (DR/EC) 30 TAKE ONE TABLET BY MOUTH EVERY DAY TAKE ONE TABLET BY MOUTH EVERY DAY SOLD: 02/28/2020 [facility] 100 mg 10/14/2019 12:00:00 AM EDT capsule 60 TAKE ONE CAPSULE BY MOUTH TWICE A DAY TAKE ONE CAPSULE BY MOUTH TWICE A DAY SOLD: 11/28/2019 [facility] 20 mg 10/14/2019 12:00:00 AM EDT tablet 60 TAKE ONE TABLET BY MOUTH TWICE A DAY TAKE ONE TABLET BY MOUTH TWICE A DAY SOLD: 12/28/2019 [facility] 40 mg 10/14/2019 12:00:00 AM EDT tablet,delayed release (DR/EC) 30 TAKE ONE TABLET BY MOUTH EVERY DAY TAKE ONE TABLET BY MOUTH EVERY DAY SOLD: 12/28/2019 [facility] 40 mg 10/14/2019 12:00:00 AM EDT tablet,delayed release (DR/EC) 30 TAKE ONE TABLET BY MOUTH EVERY DAY TAKE ONE TABLET BY MOUTH EVERY DAY SOLD: 11/28/2019 [facility] 25 mg 10/14/2019 12:00:00 AM EDT capsule 30 TAKE ONE CAPSULE BY MOUTH EVERY DAY TAKE ONE CAPSULE BY MOUTH EVERY DAY SOLD: 04/04/2020 [facility] 100 mg 10/14/2019 12:00:00 AM EDT capsule 60 TAKE ONE CAPSULE BY MOUTH TWICE A DAY TAKE ONE CAPSULE BY MOUTH TWICE A DAY SOLD: 01/28/2020 [facility] 100 mg 10/14/2019 12:00:00 AM EDT capsule 60 TAKE ONE CAPSULE BY MOUTH TWICE A DAY TAKE ONE CAPSULE BY MOUTH TWICE A DAY SOLD: 12/28/2019 [facility] 40 mg 10/14/2019 12:00:00 AM EDT tablet 30 TAKE ONE TABLET BY MOUTH EVERY DAY TAKE ONE TABLET BY MOUTH EVERY DAY SOLD: 10/26/2019 [facility] 20 mg 10/14/2019 12:00:00 AM EDT tablet 60 TAKE ONE TABLET BY MOUTH TWICE A DAY TAKE ONE TABLET BY MOUTH TWICE A DAY SOLD: 10/26/2019 [facility] 20 mg 10/14/2019 12:00:00 AM EDT tablet 60 TAKE ONE TABLET BY MOUTH TWICE A DAY TAKE ONE TABLET BY MOUTH TWICE A DAY SOLD: 01/28/2020 [facility] pantoprazole 40 MG Delayed Release Oral Tablet PANTOPRAZOLE SODIUM 10/14/2019 12:00:00 AM EDT tablet,delayed release (DR/EC) 30 T HANDY ONE TABLET BY MOUTH EVERY DAY TAKE ONE TABLET BY MOUTH EVERY DAY SOLD: 04/04/2020 [facility] Escitalopram 10 MG Oral Tablet ESCITALOPRAM OXALATE 10/14/2019 1 2:00:00 AM EDT tablet 30 TAKE ONE TABLET BY MOUTH EVERY D AY TAKE ONE TABLET BY MOUTH EVERY DAY SOLD: 12/28/2019 [facility] atorvastatin 40 MG Oral Tablet ATORVASTATIN CALCIUM 10/14/2019 1 2:00:00 AM EDT tablet 30 TAKE ONE TABLET BY MOUTH EVERY D AY TAKE ONE TABLET BY MOUTH EVERY DAY SOLD: 04/04/2020 [facility] 100 mg 10/14/2019 12:00:00 AM EDT capsule 60 TAKE ONE CAPSULE BY MOUTH TWICE A DAY TAKE ONE CAPSULE BY MOUTH TWICE A DAY SOLD: 04/04/2020 [facility] 40 mg 10/14/2019 12:00:00 AM EDT tablet 30 TAKE ONE TABLET BY MOUTH EVERY DAY TAKE ONE TABLET BY MOUTH EVERY DAY SOLD: 01/28/2020 [facility] 100 mg 10/14/2019 12:00:00 AM EDT capsule 60 TAKE ONE CAPSULE BY MOUTH TWICE A DAY TAKE ONE CAPSULE BY MOUTH TWICE A DAY SOLD: 02/28/2020 [facility] Escitalopram 10 MG Oral Tablet ESCITALOPRAM OXALATE 10/14/2019 1 2:00:00 AM EDT tablet 30 TAKE ONE TABLET BY MOUTH EVERY D AY TAKE ONE TABLET BY MOUTH EVERY DAY SOLD: 11/28/2019 [facility] 100 mg 10/14/2019 12:00:00 AM EDT capsule 60 TAKE ONE CAPSULE BY MOUTH TWICE A DAY TAKE ONE CAPSULE BY MOUTH TWICE A DAY SOLD: 10/26/2019 [facility] 20 mg 10/14/2019 12:00:00 AM EDT tablet 60 TAKE ONE TABLET BY MOUTH TWICE A DAY TAKE ONE TABLET BY MOUTH TWICE A DAY SOLD: 02/28/2020 [facility] 25 mg 10/14/2019 12:00:00 AM EDT capsule 30 TAKE ONE CAPSULE BY MOUTH EVERY DAY TAKE ONE CAPSULE BY MOUTH EVERY DAY SOLD: 10/26/2019 [facility] atorvastatin 40 MG Oral Tablet ATORVASTATIN CALCIUM 10/14/2019 1 2:00:00 AM EDT tablet 30 TAKE ONE TABLET BY MOUTH EVERY D AY TAKE ONE TABLET BY MOUTH EVERY DAY SOLD: 02/28/2020 [facility] 25 mg 10/14/2019 12:00:00 AM EDT capsule 30 TAKE ONE CAPSULE BY MOUTH EVERY DAY TAKE ONE CAPSULE BY MOUTH EVERY DAY SOLD: 12/28/2019 [facility] Fenofibrate 54 MG Oral Tablet FENOFIBRATE 10/14/2019 12:00:00 AM EDT tablet 30 TAKE ONE TABLET BY MOUTH EVERY DAY WITH A MEAL TAKE ON E TABLET BY MOUTH EVERY DAY WITH A MEAL SOLD: 01/28/2020 [facility] 25 mg 10/14/2019 12:00:00 AM EDT capsule 30 TAKE ONE CAPSULE BY MOUTH EVERY DAY TAKE ONE CAPSULE BY MOUTH EVERY DAY SOLD: 01/28/2020 [facility] 25 mg 10/14/2019 12:00:00 AM EDT capsule 30 TAKE ONE CAPSULE BY MOUTH EVERY DAY TAKE ONE CAPSULE BY MOUTH EVERY DAY SOLD: 02/28/2020 [facility] Escitalopram 10 MG Oral Tablet ESCITALOPRAM OXALATE 10/14/2019 1 2:00:00 AM EDT tablet 30 TAKE ONE TABLET BY MOUTH EVERY D AY TAKE ONE TABLET BY MOUTH EVERY DAY SOLD: 10/26/2019 [facility] 25 mg 10/14/2019 12:00:00 AM EDT capsule 30 TAKE ONE CAPSULE BY MOUTH EVERY DAY TAKE ONE CAPSULE BY MOUTH EVERY DAY SOLD: 11/28/2019 [facility] Fenofibrate 54 MG Oral Tablet FENOFIBRATE 10/14/2019 12:00:00 AM EDT tablet 30 TAKE ONE TABLET BY MOUTH EVERY DAY WITH A MEAL TAKE ON E TABLET BY MOUTH EVERY DAY WITH A MEAL SOLD: 04/04/2020 [facility] trospium chloride 20 MG Oral Tablet TROSPIUM CHLORIDE 09/2019 12:00:00 AM EDT tablet 60 TAKE ONE TABLET BY MOUTH TWI CE A DAY TAKE ONE TABLET BY MOUTH TWICE A DAY SOLD: 04/04/2020 [facility] 1,250 mcg (50,000 unit) 10/11/2019 12:00:00 AM EDT capsule 4 TAKE ONE CAPSULE BY MOUTH ONCE A WEEK TAKE ONE CAPSULE BY MOUTH ONCE A WEEK SOLD: 02/16/2020 [facility] 1,250 mcg (50,000 unit) 10/11/2019 12:00:00 AM EDT capsule 4 TAKE ONE CAPSULE BY MOUTH ONCE A WEEK TAKE ONE CAPSULE BY MOUTH ONCE A WEEK SOLD: 01/18/2020 [facility] 1,250 mcg (50,000 unit) 10/11/2019 12:00:00 AM EDT capsule 4 TAKE ONE CAPSULE BY MOUTH ONCE A WEEK TAKE ONE CAPSULE BY MOUTH ONCE A WEEK SOLD: 11/21/2019 [facility] 1,250 mcg (50,000 unit) 10/11/2019 12:00:00 AM EDT capsule 4 TAKE ONE CAPSULE BY MOUTH ONCE A WEEK TAKE ONE CAPSULE BY MOUTH ONCE A WEEK SOLD: 12/20/2019 [facility] 1,250 mcg (50,000 unit) 10/11/2019 12:00:00 AM EDT capsule 4 TAKE ONE CAPSULE BY MOUTH ONCE A WEEK TAKE ONE CAPSULE BY MOUTH ONCE A WEEK SOLD: 03/21/2020 [facility] 1,250 mcg (50,000 unit) 10/11/2019 12:00:00 AM EDT capsule 4 TAKE ONE CAPSULE BY MOUTH ONCE A WEEK TAKE ONE CAPSULE BY MOUTH ONCE A WEEK SOLD: 10/26/2019 [facility] tramadol hydrochloride 50 MG Oral Tablet TRAMADOL HCL 10/04/2019 12:00:00 AM EDT tablet 21 TAKE ONE TABLET BY MOUTH THREE TIMES A DAY NEEDED MAXIMUM DAILY DOSE = 3 TAKE ONE TABLET BY MOUTH THREE TIMES A D AY NEEDED MAXIMUM DAILY DOSE = 3 SOLD: 10/09/2019 [facility] tramadol hydrochloride 50 MG Oral Tablet TRAMADOL HCL 09/18/2019 12:00:00 AM EDT tablet 21 TAKE ONE TABLET BY MOUTH THREE TIMES A DAY NEEDED MAXIMUM DAILY DOSE = 3 TABLETS TAKE ONE TABLET BY MOUTH THREE TIMES A D AY NEEDED MAXIMUM DAILY DOSE = 3 TABLETS SOLD: 09/18/2019 [facility] Escitalopram 20 MG Oral Tablet ESCITALOPRAM OXALATE 09/18/2019 1 2:00:00 AM EDT tablet 30 TAKE ONE TABLET BY MOUTH EVERY D AY TAKE ONE TABLET BY MOUTH EVERY DAY SOLD: 09/18/2019 [facility] Escitalopram 20 MG Oral Tablet ESCITALOPRAM OXALATE 09/18/2019 1 2:00:00 AM EDT tablet 30 TAKE ONE TABLET BY MOUTH EVERY D AY TAKE ONE TABLET BY MOUTH EVERY DAY SOLD: 10/26/2019 [facility] Escitalopram 20 MG Oral Tablet ESCITALOPRAM OXALATE 09/18/2019 1 2:00:00 AM EDT tablet 30 TAKE ONE TABLET BY MOUTH EVERY D AY TAKE ONE TABLET BY MOUTH EVERY DAY SOLD: 11/28/2019 [facility] 400 mg (241.3 mg magnesium) 09/09/2019 12:00:00 AM EDT table t 30 TAKE ONE TABLET BY MOUTH EVERY DAY WITH FOOD TAKE ONE TABLET BY MOUTH EVERY DAY WITH FOOD SOLD: 02/16/2020 [facility] 400 mg (241.3 mg magnesium) 09/09/2019 12:00:00 AM EDT table t 30 TAKE ONE TABLET BY MOUTH EVERY DAY WITH FOOD TAKE ONE TABLET BY MOUTH EVERY DAY WITH FOOD SOLD: 01/18/2020 [facility] 400 mg (241.3 mg magnesium) 09/09/2019 12:00:00 AM EDT table t 30 TAKE ONE TABLET BY MOUTH EVERY DAY WITH FOOD TAKE ONE TABLET BY MOUTH EVERY DAY WITH FOOD SOLD: 11/16/2019 [facility] 400 mg (241.3 mg magnesium) 09/09/2019 12:00:00 AM EDT table t 30 TAKE ONE TABLET BY MOUTH EVERY DAY WITH FOOD TAKE ONE TABLET BY MOUTH EVERY DAY WITH FOOD SOLD: 09/10/2019 [facility] 400 mg (241.3 mg magnesium) 09/09/2019 12:00:00 AM EDT table t 30 TAKE ONE TABLET BY MOUTH EVERY DAY WITH FOOD TAKE ONE TABLET BY MOUTH EVERY DAY WITH FOOD SOLD: 12/20/2019 [facility] tramadol hydrochloride 50 MG Oral Tablet TRAMADOL HCL 09/09/2019 12:00:00 AM EDT tablet 21 TAKE ONE TABLET BY MOUTH THREE TIMES A DAY NEEDED MAXIMUM DAILY DOSE = 3 TABLETS TAKE ONE TABLET BY MOUTH THREE TIMES A D AY NEEDED MAXIMUM DAILY DOSE = 3 TABLETS SOLD: 09/10/2019 [facility] 400 mg (241.3 mg magnesium) 09/09/2019 12:00:00 AM EDT table t 30 TAKE ONE TABLET BY MOUTH EVERY DAY WITH FOOD TAKE ONE TABLET BY MOUTH EVERY DAY WITH FOOD SOLD: 10/09/2019 [facility] 250 mg 08/01/2019 12:00:00 AM EST tablet 4 TAKE ONE TABLET BY MOUTH EVERY DAY TAKE ONE TABLET BY MOUTH EVERY DAY SOLD: 08/01/2019 [facility] 20 mg 08/01/2019 12:00:00 AM EST tablet 15 TAKE THREE TABLETS BY MOUTH EVERY DAY TAKE THREE TABLETS BY MOUTH EVERY DAY SOLD: 08/01/2019 [facility] 90 mcg/actuation 08/01/2019 12:00:00 AM EST HFA aerosol inha ler 8 INHALE TWO PUFFS BY MOUTH EVERY 4 HOURS DIRECTED INHALE TWO PUFFS BY MOUTH EVERY 4 HOURS DIRECTED SOLD: 08/01/2019 [facility] 400 mg (241.3 mg magnesium) 07/22/2019 12:00:00 AM EST table t 30 TAKE ONE TABLET BY MOUTH EVERY DAY TAKE ONE TABLET BY MOUTH EVERY DAY SOLD: 07/23/2019 [facility] Escitalopram 10 MG Oral Tablet ESCITALOPRAM OXALATE 07/17/2019 1 2:00:00 AM EST tablet 30 TAKE ONE TABLET BY MOUTH EVERY D AY TAKE ONE TABLET BY MOUTH EVERY DAY SOLD: 09/18/2019 [facility] Escitalopram 10 MG Oral Tablet ESCITALOPRAM OXALATE 07/17/2019 1 2:00:00 AM EST tablet 30 TAKE ONE TABLET BY MOUTH EVERY D AY TAKE ONE TABLET BY MOUTH EVERY DAY SOLD: 07/19/2019 [facility] Escitalopram 10 MG Oral Tablet ESCITALOPRAM OXALATE 07/17/2019 1 2:00:00 AM EST tablet 30 TAKE ONE TABLET BY MOUTH EVERY D AY TAKE ONE TABLET BY MOUTH EVERY DAY SOLD: 08/22/2019 [facility] 24 mcg 07/10/2019 12:00:00 AM EST capsule 60 TAKE ONE CAPSULE BY MOUTH TWICE A DAY WITH FOOD OR WATER TAKE ONE CAPSULE BY MOUTH TWICE A DAY WI TH FOOD OR WATER SOLD: 08/22/2019 [facility] 24 mcg 07/10/2019 12:00:00 AM EST capsule 60 TAKE ONE CAPSULE BY MOUTH TWICE A DAY WITH FOOD OR WATER TAKE ONE CAPSULE BY MOUTH TWICE A DAY WI TH FOOD OR WATER SOLD: 10/26/2019 [facility] 24 mcg 07/10/2019 12:00:00 AM EST capsule 60 TAKE ONE CAPSULE BY MOUTH TWICE A DAY WITH FOOD OR WATER TAKE ONE CAPSULE BY MOUTH TWICE A DAY WI TH FOOD OR WATER SOLD: 09/18/2019 [facility] 24 mcg 07/10/2019 12:00:00 AM EST capsule 60 TAKE ONE CAPSULE BY MOUTH TWICE A DAY WITH FOOD OR WATER TAKE ONE CAPSULE BY MOUTH TWICE A DAY WI TH FOOD OR WATER SOLD: 07/10/2019 [facility] Escitalopram 20 MG Oral Tablet ESCITALOPRAM OXALATE 06/25/2019 1 2:00:00 AM EST tablet 30 TAKE ONE TABLET BY MOUTH EVERY D AY TAKE ONE TABLET BY MOUTH EVERY DAY SOLD: 07/23/2019 [facility] 50 mg 06/25/2019 12:00:00 AM EST tablet 21 TAKE ONE TABLET BY MOUTH THREE TIMES A DAY NEEDED MAXIMUM DAILY DOSE = 3 TABLETS TAKE ONE TABLET BY MOUTH THREE TIMES A DAY NEEDED MAXIMUM DAILY DOSE = 3 TABLETS SOLD: 06/26/2019 [facility] Escitalopram 20 MG Oral Tablet ESCITALOPRAM OXALATE 06/25/2019 1 2:00:00 AM EST tablet 30 TAKE ONE TABLET BY MOUTH EVERY D AY TAKE ONE TABLET BY MOUTH EVERY DAY SOLD: 06/26/2019 [facility] 100,000 unit/gram 06/25/2019 12:00:00 AM EST powder 60 APPLY TWO TIMES A DAY APPLY TWO TIMES A DAY SOLD: 08/22/2019 [facility] 100,000 unit/gram 06/25/2019 12:00:00 AM EST powder 60 APPLY TWO TIMES A DAY APPLY TWO TIMES A DAY SOLD: 07/23/2019 [facility] 100,000 unit/gram 06/25/2019 12:00:00 AM EST powder 60 APPLY TWO TIMES A DAY APPLY TWO TIMES A DAY SOLD: 06/26/2019 [facility] 100,000 unit/gram 06/25/2019 12:00:00 AM EST powder 60 APPLY TWO TIMES A DAY APPLY TWO TIMES A DAY SOLD: 09/18/2019 [facility] Escitalopram 20 MG Oral Tablet ESCITALOPRAM OXALATE 06/25/2019 1 2:00:00 AM EST tablet 30 TAKE ONE TABLET BY MOUTH EVERY D AY TAKE ONE TABLET BY MOUTH EVERY DAY SOLD: 08/22/2019 [facility] Nystatin 100 UNT/MG Topical Powder Nystatin 862851 UNI T/GM Nystatin 570332 UNIT/GM 06/24/2019 12:00:00 AM EST active 1 application [email or web address] ([facility]) 50 mg 05/06/2019 12:00:00 AM EST tablet 30 TAKE ONE TABLET BY MOUTH THREE TIMES A DAY NEEDED MAXIMUM DAILY DOSE = 3 TABLETS TAKE ONE TABLET BY MOUTH THREE TIMES A DAY NEEDED MAXIMUM DAILY DOSE = 3 TABLETS SOLD: 06/03/2019 [facility] Fenofibrate 54 MG Oral Tablet FENOFIBRATE 04/25/2019 12:00:00 AM EST tablet 30 TAKE ONE TABLET BY MOUTH EVERY DAY WITH A MEAL TAKE ON E TABLET BY MOUTH EVERY DAY WITH A MEAL SOLD: 09/18/2019 [facility] Fenofibrate 54 MG Oral Tablet FENOFIBRATE 04/25/2019 12:00:00 AM EST tablet 30 TAKE ONE TABLET BY MOUTH EVERY DAY WITH A MEAL TAKE ON E TABLET BY MOUTH EVERY DAY WITH A MEAL SOLD: 08/22/2019 [facility] Fenofibrate 54 MG Oral Tablet FENOFIBRATE 04/25/2019 12:00:00 AM EST tablet 30 TAKE ONE TABLET BY MOUTH EVERY DAY WITH A MEAL TAKE ON E TABLET BY MOUTH EVERY DAY WITH A MEAL SOLD: 07/23/2019 [facility] 20 mg 04/24/2019 12:00:00 AM EST tablet 60 TAKE ONE TABLET BY MOUTH TWICE A DAY TAKE ONE TABLET BY MOUTH TWICE A DAY SOLD: 09/18/2019 [facility] 20 mg 04/24/2019 12:00:00 AM EST tablet 60 TAKE ONE TABLET BY MOUTH TWICE A DAY TAKE ONE TABLET BY MOUTH TWICE A DAY SOLD: 08/22/2019 [facility] 20 mg 04/24/2019 12:00:00 AM EST tablet 60 TAKE ONE TABLET BY MOUTH TWICE A DAY TAKE ONE TABLET BY MOUTH TWICE A DAY SOLD: 07/23/2019 [facility] Nortriptyline 25 MG Oral Capsule NORTRIPTYLINE HCL 04/23/2019 12 :00:00 AM EST capsule 30 TAKE ONE CAPSULE BY MOUTH EVERY DAY TAKE ONE CAPSULE BY MOUTH EVERY DAY SOLD: 09/18/2019 [facility] 25 mg 04/23/2019 12:00:00 AM EST capsule 30 TAKE ONE CAPSULE BY MOUTH EVERY DAY TAKE ONE CAPSULE BY MOUTH EVERY DAY SOLD: 07/23/2019 [facility] Nortriptyline 25 MG Oral Capsule NORTRIPTYLINE HCL 04/23/2019 12 :00:00 AM EST capsule 30 TAKE ONE CAPSULE BY MOUTH EVERY DAY TAKE ONE CAPSULE BY MOUTH EVERY DAY SOLD: 08/22/2019 [facility] 40 mg 04/22/2019 12:00:00 AM EST tablet 30 TAKE ONE TABLET BY MOUTH EVERY DAY TAKE ONE TABLET BY MOUTH EVERY DAY SOLD: 07/23/2019 [facility] Escitalopram 10 MG Oral Tablet ESCITALOPRAM OXALATE 04/22/2019 1 2:00:00 AM EST tablet 30 TAKE ONE TABLET BY MOUTH EVERY D AY TAKE ONE TABLET BY MOUTH EVERY DAY SOLD: 05/24/2019 [facility] 100 mg 04/22/2019 12:00:00 AM EST capsule 60 TAKE ONE CAPSULE BY MOUTH TWICE A DAY TAKE ONE CAPSULE BY MOUTH TWICE A DAY SOLD: 09/18/2019 [facility] 100 mg 04/22/2019 12:00:00 AM EST capsule 60 TAKE ONE CAPSULE BY MOUTH TWICE A DAY TAKE ONE CAPSULE BY MOUTH TWICE A DAY SOLD: 08/22/2019 [facility] 40 mg 04/22/2019 12:00:00 AM EST tablet 30 TAKE ONE TABLET BY MOUTH EVERY DAY TAKE ONE TABLET BY MOUTH EVERY DAY SOLD: 09/18/2019 [facility] 1,250 mcg (50,000 unit) 04/22/2019 12:00:00 AM EST capsule 4 TAKE ONE CAPSULE BY MOUTH WEEKLY TAKE ONE CAPSULE BY MOUTH WEEKLY SOLD: 08/22/2019 [facility] 1,250 mcg (50,000 unit) 04/22/2019 12:00:00 AM EST capsule 4 TAKE ONE CAPSULE BY MOUTH WEEKLY TAKE ONE CAPSULE BY MOUTH WEEKLY SOLD: 07/23/2019 [facility] 1,250 mcg (50,000 unit) 04/22/2019 12:00:00 AM EST capsule 4 TAKE ONE CAPSULE BY MOUTH WEEKLY TAKE ONE CAPSULE BY MOUTH WEEKLY SOLD: 09/18/2019 [facility] 40 mg 04/22/2019 12:00:00 AM EST tablet,delayed release (DR/EC) 30 TAKE ONE TABLET BY MOUTH EVERY DAY TAKE ONE TABLET BY MOUTH EVERY DAY SOLD: 08/22/2019 [facility] 40 mg 04/22/2019 12:00:00 AM EST tablet,delayed release (DR/EC) 30 TAKE ONE TABLET BY MOUTH EVERY DAY TAKE ONE TABLET BY MOUTH EVERY DAY SOLD: 09/18/2019 [facility] 40 mg 04/22/2019 12:00:00 AM EST tablet,delayed release (DR/EC) 30 TAKE ONE TABLET BY MOUTH EVERY DAY TAKE ONE TABLET BY MOUTH EVERY DAY SOLD: 07/23/2019 [facility] 40 mg 04/22/2019 12:00:00 AM EST tablet 30 TAKE ONE TABLET BY MOUTH EVERY DAY TAKE ONE TABLET BY MOUTH EVERY DAY SOLD: 08/22/2019 [facility] Escitalopram 10 MG Oral Tablet ESCITALOPRAM OXALATE 04/22/2019 1 2:00:00 AM EST tablet 30 TAKE ONE TABLET BY MOUTH EVERY D AY TAKE ONE TABLET BY MOUTH EVERY DAY SOLD: 06/20/2019 [facility] 100 mg 04/22/2019 12:00:00 AM EST capsule 60 TAKE ONE CAPSULE BY MOUTH TWICE A DAY TAKE ONE CAPSULE BY MOUTH TWICE A DAY SOLD: 07/23/2019 [facility] Insurance Providers Payer name Policy type / Coverage type Policy ID Covered constitution party ID Covered constitution party's relationship to estevez Policy Estevez Plan Information SVETLANA [id number] SP [id number] SELF PAY ONLY [id number] SP [id number] [facility] MEDICAID [id number] S [id number] MEDICAID [id number] S [id number] [facility] MEDICAID [id number] S [id number] [facility] [id number] S [id number] MEDICAID [id number] SP [id number] [id number] SP [id number] [facility] Medicaid Commercial [id number] Self [id number] BC/BS Family Health Plus Medigap Part B [id number] Self [id number] Gold Commercial [id number] Self [id number] ANSI-Not a Secondary Insurance [id number] [facility] HEALTH CARE O [id number] S [id number] ANSI-Not a Secondary Insurance [id number] ANSI-Not a Secondary Insurance [id number] [facility] [id number] SP [id number] ANSI-Not a Secondary Insurance [id number] [facility] Medicaid Commercial [id number] Self [id number] MVP Medicaid Commercial [id number] Self [id number] BC/BS Family Health Plus Medigap Part B [id number] Self [id number] MVP Gold Commercial [id number] Self [id number] BC/BS Family Health Plus Medigap Part B [id number] Self [id number] MVP Gold Commercial [id number] Self [id number] BC/BS Family Health Plus Medigap Part B [id number] Self [id number] MVP Gold Commercial [id number] Self [id number] MVP MCDHMO [id number] SP [id number] BC/BS Family Health Plus Medigap Part B [id number] Self [id number] MVP Gold Commercial [id number] Self [id number] [employer] MCDHMO [id number] SP [id number] [employer](MCAID) O [id number] S [id number] [employer] COMM[employer] MCDHMO [id number] SP [id number] [employer] MEDICAID [place] HMO [id number] S [id number] [facility] [id number] SP [id number] MEDICAID [id number] SP [id number] HMO BLUE [id number] SP [id number] BLUE CROSS GRAY PLAN [id number] SP [id number] [facility] [id number] SP [id number] BLUE CHOICE OPTION O [id number] S [id number] MEDICAID W [id number] S [id number] BLUE [employer] O [id number] S [id number] Problems, Conditions, and Diagnoses Code Display Name Description Problem Type Effective Dates Data Source(s) 26775702 Calcaneal spur Calcaneal spur Problem 04/13/2020 12:00: 00 AM EST [facility] ([facility] [id number] Plantar fascial fibromatosis Plantar fascial fibromato sis Problem 04/13/2020 12:00:00 AM EST [facility] ([facility] E78.5 Dyslipidemia Dyslipidemia Problem 12/24/2019 12:00:00 A M EDT eCW1 ([facility]) N60.02 Solitary cyst of left breast SOLITARY CYST OF LEFT LIDIA AST Diagnosis 05/18/2020 12:00:00 PM [facility] N60.01 Solitary cyst of right breast SOLITARY CYST OF RIGHT B REAST Diagnosis 05/18/2020 12:00:00 PM [facility] R92.8 Other abnormal and inconclusive findings on diagnostic imaging of breast OTH ABN AND INCONCLUSIVE FINDINGS ON DX IMAGING OF BREAST Diagnosis 05/18/2020 12:00:00 PM [facility] Z12.31 Encounter for screening mammogram for ma lignant neoplasm of breast ENCNTR SCREEN MAMMOGRAM FOR MALIGNANT NEOPLASM OF BREAST Diagnosis 07/2019 10:30:00 AM [facility] J01.00 Acute maxillary sinusitis, unspecified A CUTE MAXILLARY SINUSITIS, UNSPECIFIED Diagnosis 08/01/2019 [facility] J[facility].9 Unspecified bacterial pneumonia UNSPECIFIED BACTERIAL PNEUMONIA Diagnosis 08/01/2019 01:21:00 PM [facility] R09.3 Abnormal sputum ABNORMAL SPUTUM Diagnosis 08/01/2019 01:2 1:00 PM [facility] Surgeries/Procedures Procedure Description Date Indications Data Source(s) APPLICATION MODALITY 1/> AREAS HOT/COLD PACKS 07/16/19 21 12:00:00 AM EST [facility] ([facility]) THERAPEUTIC PX 1/> AREAS EACH 15 MIN EXERCISES 021 12:00:00 AM EST [facility] ([facility] ) THERAPEUTIC PX 1/> AREAS EACH 15 MIN EXERCISES 021 12:00:00 AM EST [facility] ([facility] ) APPLICATION MODALITY 1/> AREAS HOT/COLD PACKS 07/06/19 21 12:00:00 AM EST [facility] ([facility] ) THERAPEUTIC PX 1/> AREAS EACH 15 MIN EXERCISES 021 12:00:00 AM EST [facility] ([facility] ) APPLICATION MODALITY 1/> AREAS HOT/COLD PACKS 06/17/19 21 12:00:00 AM EST [facility] ([facility] ) THERAPEUTIC PX 1/> AREAS EACH 15 MIN EXERCISES 021 12:00:00 AM EST [facility] ([facility] ) APPLICATION MODALITY 1/> AREAS HOT/COLD PACKS 06/15/19 21 12:00:00 AM EST [facility] ([facility] ) THERAPEUTIC PX 1/> AREAS EACH 15 MIN EXERCISES 021 12:00:00 AM EST [facility] ([facility]) Physical Therapy Eval - Low Complexity 06/02/2020 12:0 0:00 AM EST [facility] ([facility] ) SHOULDER SCOPE BONE SHAVING 05/20/2020 12:00:00 AM EST [facility] ([facility]) ARTHROSCOPY SHOULDER ROTATOR CUFF REPAIR 05/20/2020 12 :00:00 AM EST [facility] ([facility]) Magnetic Resonance Angiogtaphy Head W/O Contrast Material(S) 05/18/2020 12:00:00 AM EST [facility] ([facility]) Magnetic Resonance Angiogtaphy Head W/O Contrast Material(S) 05/18/2020 12:00:00 AM EST [facility] ([facility]) Magnetic Resonance Angiography Neck W/O Contrast Materials 05/18/2020 12:00:00 AM EST [facility] ([facility]) Magnetic Resonance Angiography Neck W/O Contrast Materials 05/18/2020 12:00:00 AM EST [facility] ([facility]) MRI BRAIN BRAIN STEM W/O CONTRAST MATERIAL 05/18/2020 12:00:00 AM EST [facility] ([facility] ) MRI BRAIN BRAIN STEM W/O CONTRAST MATERIAL 05/18/2020 12:00:00 AM EST [facility] ([facility] ) Needle electromyography, each extremity, with related paraspinal areas, when performed, done with nerve conduction, amplitude and latency/velocity study; complete, five or more muscles studied, innervated by three or more nerves or four or more spinal levels (list separately in addition to the code for primary procedure). 05/13/2020 12:00:00 AM EST MEDEN T ([facility] ) Needle electromyography, each extremity, with related paraspinal areas, when performed, done with nerve conduction, amplitude and latency/velocity study; complete, five or more muscles studied, innervated by three or more nerves or four or more spinal levels (list separately in addition to the code for primary procedure). 05/13/2020 12:00:00 AM EST MEDEN T ([facility] ) [id number] Nerve conduction studies 13 or more studies NEW 201205/13/2020 12:00:00 AM EST [facility] ([facility] ) TSTG ANS FUNCJ CARDIOVAGAL INNERVAJ PARASYMP 0 12:00:00 AM EST [facility] ([facility] ) TSTG ANS FUNCJ CARDIOVAGAL INNERVAJ PARASYMP 0 12:00:00 AM EST [facility] ([facility] ) TESTING AUTONOMIC NERVOUS SYSTEM FUNCTION 05/13/2020 1 2:00:00 AM EST [facility] ([facility] ) TESTING AUTONOMIC NERVOUS SYSTEM FUNCTION 05/13/2020 1 2:00:00 AM EST [facility] ([facility] ) NON-INVASIVE PHYSIOLOGIC STUDY EXTREMITY 3 LEVLS 05/13 12:00:00 AM EST [facility] ([facility] ) APPLICATION MODALITY 1/> AREAS HOT/COLD PACKS 04/30/20 20 12:00:00 AM EST [facility] ([facility] ) THERAPEUTIC PX 1/> AREAS EACH 15 MIN EXERCISES 12:00:00 AM EST [facility] ([facility] ) Physical Therapy Eval - Low Complexity 04/24/2020 12:0 0:00 AM EST [facility] ([facility]) Strapping Foot Or Ankle 04/10/2020 12:00:00 AM EDT [facility] ([facility] RADEX FOOT COMPLETE MINIMUM 3 VIEWS 04/10/2020 12:00:0 0 AM EDT [facility] ([facility] ARTHROCENTESIS ASPIR&/INJECTION MAJOR JT/BURSA 12:00:00 AM EDT [facility] ([facility] ) RADEX SHOULDER COMPLETE MINIMUM 2 VIEWS 09/12/2019 12: 00:00 AM EDT [facility] ([facility]) Results ID Date Data Source [id number] 06/20/2020 12:00:00 AM EST [facility] Name Value Range Interpretation Code Description Data Ammy rce(s) Supporting Document(s) SARS-CoV-2 (COVID-19) RNA [Presence] in Respiratory specimen by VERA with probe detection Not Detected [facility] This lab was ordered by [facility] and reported by [facility] ID Date Data Source [id number] 05/19/2020 10:12:00 AM EST [facility] DATE OF EXAMINATION: 05/18/2020 12:03 EST BREAST UNILATERAL COMPLETE ULTRASOUND LEFT BREAST HISTORY: Density seen on mammography Real-time ultrasound imaging was performed utilizing B-mode/doherty scale and colorDoppler imaging where applicable. Several cysts are noted scattered throughout the breast largest at the 10:00position measuring 1 cm. There is a hypoechoic area at the 1:00 position 4 cmfrom nipple with lobulated solid component warranting biopsy IMPRESSION: Finding at the 1:00 position 4 cm from nipple warrants ultrasound- guided biopsy. It should be emphasized that this examination does not entirely exclude subtlebreast pathology. 4IRAD CATEGORY 4 - SUSPICIOUS ABNORMALITY, BIOPSY SHOULD BE CONSIDERED. Electronically signed in [id number] by: Cecil Sheehan M.D. 05/19/2020 10:07 EST Name Value Range Interpretation Code Description Data Ammy rce(s) Supporting Document(s) ID Date Data Source [id number] 05/19/2020 10:12:00 AM EST [facility] DATE OF EXAMINATION: 05/18/2020 12:03 EST BREAST UNILATERAL COMPLETE ULTRASOUND RIGHT BREAST HISTORY: Densities on mammogram Real-time ultrasound imaging was performed utilizing B-mode/doherty scale and colorDoppler imaging where applicable. Few small cysts are noted. Largest is at the 11:00 position 4 cm from nipplemeasuring 6 mm. There are no solid masses. IMPRESSION: Multiple cysts. It should be emphasized that this examination does not entirely exclude subtlebreast pathology. BIRAD CATEGORY 2- BENIGN FINDINGS, ROUTINE YEARLY FOLLOW-UP RECOMMENDED. Electronically signed in [id number] by: Cecil Sheehan M.D. 05/19/2020 10:05 EST Name Value Range Interpretation Code Description Data Ammy rce(s) Supporting Document(s) ID Date Data Source [id number] 05/18/2020 03:10:00 PM EST [facility] DATE OF EXAMINATION: 05/18/2020 12:03 EST MAMMO DIAG HECTOR NO CAD DIAGNOSTIC RIGHT SIDED MAMMOGRAM Area of concern seen on the patient's screening mammogram improves on additionalimages. Routine yearly follow-up mammography recommended. IMPRESSION: Routine yearly follow-up mammography recommended. BIRAD CATEGORY 2 - BENIGN FINDINGS, ROUTINE YEARLY MAMMOGRAPHIC FOLLOW-UPRECOMMENDED. DIAGNOSTIC LEFT SIDED MAMMOGRAM Area of concern significantly improves on additional images require no furtherworkup other than routine yearly follow-up mammography. However, patient'sultrasound reveals a focus of ductal ectasia at the 1:00 position 4 cm fromnipple with an intraluminal defect warranting tissue sampling. IMPRESSION: Biopsy based on sonographic findings recommended. Otherwise routine yearlyfollow-up mammography. BIRAD 4 - Suspicious Abnormality - Biopsy should be considered Furthermore, in patients with dense glandular tissue, supplemental imagingmodalities should be considered. 10-15% of cancers are not identified by mammography. This usually occurs whenthe mass is of the same radiographic density as the surrounding breast tissue,emphasizing the importance of breast self examination (BSE) and physicalexamination. A normal mammogram should not delay biopsy if a suspicious mass orabnormal findings are present upon physical examination. Electronically signed in [id number] by: Cecil Sheehan M.D. 05/18/2020 15:04 EST Name Value Range Interpretation Code Description Data Ammy rce(s) Supporting Document(s) ID Date Data Source DIAGNOSTIC BILATERAL MAMMO 05/18/2020 12:00:00 AM EST eCW1 ( [facility]) Name Value Range Interpretation Code Description Data Ammy rce(s) Supporting Document(s) DIAGNOSTIC BILATERAL MAMMO eCW 1 ([facility]) ID Date Data Source [id number] 05/15/2020 10:00:00 AM EST [facility] ([facility]) Name Value Range Interpretation Code Description Data Ammy rce(s) Supporting Document(s) Coronavirus 2019 Nasopharygeal Laboratory test result MED[facility] ([facility]) This nucleic acid amplification test was developed and its performance characteristics determined by [employer]. Nucleic acid amplification tests include PCR and [...] detected) result in this assay. Performed at: [facility], [place] [id number] Wire Stockkeeper: Maeve Mcfadden PhD, Phone: [phone] Not Detected ID Date Data Source [id number] 05/15/2020 10:00:00 AM EST [facility] Name Value Range Interpretation Code Description Data Ammy rce(s) Supporting Document(s) SARS coronavirus 2 RNA [facility] This lab was ordered by [facility] and reported by [facility]. ID Date Data Source [id number] 05/13/2020 01:47:00 PM EST [facility] ([facility], ) Name Value Range Interpretation Code Description Data Ammy rce(s) Supporting Document(s) Rheumatoid factor [Units/volume] in Serum or Plasma Laborato ry test result 0.0-13.9 [facility] ([facility], ) Thyrotropin [Units/volume] in Serum or Plasma 2.250 uIU/mL 0.450-4.50 0 [facility] ([facility]) Erythrocyte sedimentation rate by 2H Westergren method 22 mm/hr 0-4 0 [facility] ([facility]) Nuclear Ab [Titer] in Serum by Immunofluorescence Laboratory test res ult [facility] ([facility], ) <content>Negative <1:80</content>
<content>Borderline 1:80</content>
<content>Positive >1:80</content>
<content></content> Calcidiol [Mass/volume] in Serum or Plasma 31.6 ng/mL 30.0-100.0 [facility] ([facility]) Vitamin D deficiency has been defined by the [place] of Medicine and an Endocrine Society practice guideline as a level of serum 25-OH vitamin D less than 20 ng/mL (1,2). The Endocrine Society went on to further define vitamin D insufficiency as a level between 21 and 29 ng/mL (2). 1. IOM ([place] of Medicine). 2010. Di etary reference intakes for calcium and D. [place]: The National Academies Press. 2. Franchesca ROTH, Gavi GILLIAM, Levy ramos VELASCO, et al. Evaluation, treatment, and prevention of vitamin D deficiency: an Endocrine Society clinical practice guideline. JCEM. 2010; 96(7):1911-30. Laboratory test finding (navigational concept) [facility] ID Date Data Source [id number] 05/13/2020 01:47:00 PM EST [facility] ([facility]) Name Value Range Interpretation Code Description Data Ammy rce(s) Supporting Document(s) Creatinine [Mass/volume] in Serum or Plasma 0.98 mg/dL 0.57-1.00 [facility] ([facility]) Urea nitrogen [Mass/volume] in Serum or Plasma 19 mg/dL 6-24 [facility] ([facility]) Glucose [Mass/volume] in Serum or Plasma 95 mg/dL 65-99 [facility] ([facility]) Urea nitrogen/Creatinine [Mass Ratio] in Serum or Plasma 19 9 -23 [facility] ([facility]) eGFR If Africn Am 74 mL/min/1.73 [facility] ([facility]) eGFR If NonAfricn Am 64 mL/min/1.73 MEDE NT ([facility]) Sodium [Moles/volume] in Serum or Plasma 142 mmol/L 134-144 [facility] ([facility]) Chloride [Moles/volume] in Serum or Plasma 104 mmol/L 96-106 [facility] ([facility]) Potassium [Moles/volume] in Serum or Plasma 5.1 mmol/L 3.5-5.2 [facility] ([facility]) Calcium [Mass/volume] in Serum or Plasma 9.7 mg/dL 8.7-10.2 [facility] ([facility]) Protein [Mass/volume] in Serum or Plasma 6.7 g/dL 6.0-8.5 [facility] ([facility]) Carbon dioxide, total [Moles/volume] in Serum or Plasma 26 mmol/L 20 -29 [facility] ([facility]) Globulin [Mass/volume] in Serum by calculation 2.3 g/dL 1.5-4.5 [facility] ([facility]) Albumin/Globulin [Mass Ratio] in Serum or Plasma 1.9 1.2-2.2 [facility] ([facility]) Albumin [Mass/volume] in Serum or Plasma 4.4 g/dL 3.8-4.9 [facility] ([facility]) Bilirubin.total [Mass/volume] in Serum or Plasma Laboratory test result 0.0-1.2 [facility] Alkaline phosphatase [Enzymatic activity/volume] in Serum or Plasma 85 IU/L 39-117 [facility] Aspartate aminotransferase [Enzymatic activity/volume] in Serum or Plasma 24 IU/L 0-40 [facility] Alanine aminotransferase [Enzymatic activity/volume] in Seru m or Plasma 27 IU/L 0-32 [facility] ID Date Data Source [id number] 05/13/2020 01:47:00 PM EST [facility] ([facility] Name Value Range Interpretation Code Description Data Ammy rce(s) Supporting Document(s) Leukocytes [#/volume] in Blood by Automated count 10.4 x10E3/uL 3.4-1 0.8 [facility] ([facility] Hematocrit [Volume Fraction] of Blood by Automated count 43.8 % 3 4.0-46.6 [facility] ([facility] Hemoglobin [Mass/volume] in Blood 14.3 g/dL 11.1-15.9 [facility] ([facility]) Erythrocytes [#/volume] in Blood by Automated count 5.12 x10E6/uL 3.7 7-5.28 [facility] ([facility] Erythrocyte mean corpuscular hemoglobin [Entitic mass] by Automated count 27.9 pg 26.6-33.0 [facility] Erythrocyte mean corpuscular volume [Entitic volume] by Auto mated count 86 fL 79-97 [facility] ([facility] Erythrocyte mean corpuscular hemoglobin concentration [Mass/volume] by Automated count 32.6 g/dL 31.5-35.7 [facility] Erythrocyte distribution width [Ratio] by Automated count 13.5 % 11.7-15.4 [facility] ([facility] Platelets [#/volume] in Blood by Automated count 354 x10E3/uL 150-450 [facility] Neutrophils/100 leukocytes in Blood by Automated count 59 % [facility] Monocytes/100 leukocytes in Blood by Automated count 7 % [facility] Eosinophils/100 leukocytes in Blood by Automated count 1 % [facility] ([facility]) Lymphocytes/100 leukocytes in Blood by Automated count 31 % [facility] ([facility]) Neutrophils [#/volume] in Blood by Automated count 6.2 x10E3/uL 1.4-7 .0 [facility] ([facility]) Basophils/100 leukocytes in Blood by Automated count 1 % [facility] ([facility]) Immature cells [#/volume] in Blood Laboratory test result [facility] ([facility]) Monocytes [#/volume] in Blood 0.8 x10E3/uL 0.1-0.9 [facility] ([facility]) Lymphocytes [#/volume] in Blood 3.2 x10E3/uL 0.7-3.1 [facility] ([facility]) Immature granulocytes/100 leukocytes in Blood by Automated count 1 % [facility] ([facility]) Basophils [#/volume] in Blood by Automated count 0.1 x10E3/uL 0.0-0.2 [facility] ([facility]) Eosinophils [#/volume] in Blood by Automated count 0.1 x10E3/uL 0.0-0 .4 [facility] ([facility]) Immature granulocytes [#/volume] in Blood by Automated count 0.1 x10E3/uL 0.0-0.1 [facility] ([facility]) Morphology [Interpretation] in Blood Narrative Laboratory test result [facility] ([facility]) Nucleated erythrocytes/100 leukocytes [Ratio] in Blood by Automated count Laboratory test result [facility] ([facility]) ID Date Data Source [id number] 05/13/2020 01:27:00 PM EST [facility] DATE OF EXAMINATION: 05/13/2020 10:20 EST MAMMO SCREEN BILAT WITH CAD HISTORY: Screening Based on the personal and family history information your patient supplied atthe time of imaging, her lifetime risk of breast cancer estimated date by theTyrer-Cuzick model is 9%. If anything changes in the personal and/or familyhistory this percentage could increase or decrease. Currently, NCCN and ACSrecommended adjunctive breast MRI screening starting at age 30 for women with a> 20-25% lifetime risk of developing breast cancer. Comparison is made to prior study dated 05/08/2019. 2-D bilateral digital mammogram in the CC and MLO planes were performed withsupplemental 3-D tomosynthesis of both breasts. The images were analyzed through the latest version of the [facility] computer aid eddiagnosis system. The patient states that her last clinical breast examination was not provided. Craniocaudal and oblique lateral views of the breasts were obtained. There arescattered areas of fibroglandular density. There are areas of increasing densityin the upper outer aspect of each breast warranting compression mag straightlateral views as well as sonographic correlation. There is no dominant mass,suspicious clustered calcification, or architectural distortion. IMPRESSION: Areas of increasing density within each breast with above suggested workup BIRAD 0 - Incomplete, needs additional imaging evaluation 10-15% of cancers are not identified by mammography. This usually occurs whenthe mass is of the same radiographic density as the surrounding breast tissue,emphasizing the importance of breast self examination (BSE) and physicalexamination. A normal mammogram should not delay biopsy if a suspicious mass orabnormal findings are present upon physical examination. Electronically signed in [id number] by: Cecil Sheehan M.D. 05/13/2020 13:21 EST Name Value Range Interpretation Code Description Data Ammy rce(s) Supporting Document(s) ID Date Data Source [id number] 03/02/2020 12:00:00 AM EDT [facility] Name Value Range Interpretation Code Description Data Ammy rce(s) Supporting Document(s) SARS coronavirus 2 RNA [facility] This lab was ordered by [facility] and rep orted by [facility]. ID Date Data Source [id number] 08/01/2019 06:27:00 PM EST [facility] Patient: MATTHEW CALVIN Observation Report - [facility].VisitID: [id number] [place] [address] [phone], [facility] Date/Time: 08/01/2019 12:44 Weight:99.7 kg (S). Height/Length:66 inches (S). BMI:35.5 PAST HISTORYProblems:Gastroesophageal Reflux Disease [Chronic].Hypercholesterolemia [Chronic].Depression [Chronic].Headache [Chronic].Shoulder Injury [Chronic].Back Pain [Chronic].Liver laceration.Vitamin D deficiency. Additional Surgeries:Abdominal surgery.Carpal Tunnel Surgery.Cholecystectomy. Medications:Nortriptyline HCl Oral 25 mg, daily, last dose 08/01/2019.Trospium Chloride Oral (Tablet 20 mg), 2x a day, last dose 08/01/2019.traMADol HCl Oral 50 mg, daily as needed, last dose 07/31/2019.Zonisamide Oral (Capsule 100 mg), 2x a day, last dose 08/01/2019.Atorvastatin Calcium Oral 40 mg, daily, last dose 08/01/2019.Pantoprazole Sodium Oral 40 mg, daily, last dose 08/01/2019.Vitamin D2 Oral 1.25mg, daily, last dose 08/01/2019.Escitalopram Oxalate Oral 10 mg, daily, last dose 08/01/2019.Magnesium Oral 400 mg, daily, last dose 08/01/2019. Allergies:Tape.(hives, rash). FAMILY HISTORYNegative. No significant family medical history. (Electronically signed by Siobhan Bansal 08/01/2019 18:18) Name Value Range Interpretation Code Description Data [facility](s) Supporting Document(s) ID Date Data Source [id number] 08/01/2019 01:22:00 PM [facility] DATE OF EXAMINATION: 08/01/2019 13:04 EST CHEST 2 VIEWS HISTORY: Cough TECHNIQUE: PA and lateral radiographs of the chest COMPARISON: None. FINDINGS: Mild left lower lobe atelectasis versus pneumonia as well as a small left- sidedeffusion is noted. Cardiac silhouette and pulmonary vascularity is within normallimits. IMPRESSION: Mild left lower lobe atelectasis versus pneumonia as well as a small left-sidedpleural effusion. Electronically signed in [id number] by: Cecil Sheehan M.D. 08/01/2019 13:16 EST Name Value Range Interpretation Code Description Data [facility](s) Supporting Document(s) ID Date Data Source [id number] 08/01/2019 01:49:00 PM [facility] TSYSORDER [id number] Name Value Range Interpretation Code Description Data [facility](s) Supporting Document(s) GLUCOSE 92 mg/dL 74-106 [facility] BLOOD UREA NITROGEN 20 mg/dL 7-18 [facility] CREATININE 1.1 mg/dL 0.6-1.0 H [facility] SODIUM 141 mmol/L 136-145 [facility] POTASSIUM 3.6 mmol/L 3.5-5.1 [facility] CHLORIDE 103 mmol/L 98-107 [facility] CO2 27 mmol/L 21-32 [facility] CALCIUM 9.4 mg/dL 8.5-10.1 [facility] ANION GAP 11.0 mmol/L 5-12 [facility] GLOMERULAR FILTRATION RATE 51 mL/min [facility] GFR IS CALCULATED IN mL/min/1.73m2 YULIANA L FUNCTION: >90MILDLY DECREASED: 60-89MILDY TO MODERATELY DECREASED: 45-59 MODERATELY TO SEVERELY DECREASED: 30-44SEVERELY DECREASED: 15-29RENAL FAILURE: <15 AST 20 U/L 15-37 [facility] ALT 26 U/L 12-78 [facility] ALKALINE PHOSPHATASE 81 U/L 46-116 [facility] TOTAL BILIRUBIN 0.3 mg/dL 0.2-1.0 [facility] TOTAL PROTEIN 8.3 g/dl 6.4-8.2 H [facility] ALBUMIN 4.4 gm/dL 3.4-5.0 [facility] ID Date Data Source [id number] 08/01/2019 01:31:00 PM [facility] TSYSORDER [id number] Name Value Range Interpretation Code Description Data [facility]mmy [facility](s) Supporting Document(s) WHITE BLOOD COUNT 11.5 K/mm3 4.0-10.0 [facility] adrianne RED BLOOD COUNT 5.20 M/mm3 4.00-5.50 [facility] HEMOGLOBIN 14.7 gm/dL 12.0-16.0 [facility] HEMATOCRIT 45.4 % 36.0-48.8 [facility] MEAN CELL VOLUME 87.3 fl 80-96 [facility] MEAN CORPUSCULAR HEMOGLOBIN 28.3 pg 27.0-31.0 [facility] MEAN CORPUSCULAR HGB CONC 32.4 g/dl 32.0-36.0 [facility] RED CELL DISTRIBUTION WIDTH 13.5 % 10.0-14.5 [facility] PLATELET COUNT 350 K/mm3 172-450 [facility] MEAN PLATELET VOLUME 9.3 fl 9.0-13.0 [facility] pital GRAN % 58.3 % 50-80.0 [facility] IG% 0.7 % 0.0-0.2 H [facility] LYMPH % 30.0 % 25.0-50.0 [facility] MONO % 9.1 % 2.0-10.0 [facility] EOS % 1.5 % 0-5.0 [facility] BASO % 0.4 % 0.0-2.0 [facility] GRAN # 6.7 K/mm3 2.0-8.00 [facility] IG# 0.1 K/mm3 0.0-0.2 [facility] LYMPH # 3.4 K/mm3 1.0-5.0 [facility] MONO # 1.0 K/mm3 0.10-1.20 [facility] EOS # 0.2 K/mm3 0.0-0.5 [facility] BASO # 0.1 K/mm3 0.0-0.2 [facility] ID Date Data Source [id number] 08/01/2019 01:31:00 PM EST [facility] TSYSORDER [id number] Name Value Range Interpretation Code Description Data Ammy rce(s) Supporting Document(s) INFLUENZA A NEGATIVE NEGATIVE [facility] INFLUENZA B NEGATIVE NEGATIVE [facility] This is a rapid molecular in vitro diagn ostic test utilizingan isothermal nucleaic acid amplification technology for thequalitative detection and discrimination of influenza A andB viral RNA. Negative results do not preclude influenzavirus infection and should not be used as the sole basis fordiagnosis, treatment or other patient management decisions. Procedure Social History Code Duration Value Status Description Data Source(s ) Smoking 07/08/2020 12:00:00 AM EST Former Smoker completed Former Smoker eCW1 ([facility]) Smoking 07/08/2020 12:00:00 AM EST Former Smoker completed Former Smoker eCW1 ([facility]) Smoking 12/24/2019 12:00:00 AM EDT Former Smoker completed Former Smoker eCW1 ([facility]) Smoking 12/24/2019 12:00:00 AM EDT Former Smoker completed Former Smoker eCW1 ([facility]) Smoking 12/24/2019 12:00:00 AM EDT Former Smoker completed Former Smoker eCW1 ([facility]) Smoking 12/24/2019 12:00:00 AM EDT Former Smoker completed Former Smoker eCW1 ([facility]) Smoking 12/24/2019 12:00:00 AM EDT Former Smoker completed Former Smoker eCW1 ([facility]) Smoking 12/24/2019 12:00:00 AM EDT Former Smoker completed Former Smoker eCW1 ([facility]) Smoking 12/24/2019 12:00:00 AM EDT Former Smoker completed Former Smoker eCW1 ([facility]) Smoking 12/24/2019 12:00:00 AM EDT Former Smoker completed Former Smoker eCW1 ([facility]) Smoking 12/24/2019 12:00:00 AM EDT Former Smoker completed Former Smoker eCW1 ([facility]) Smoking 12/24/2019 12:00:00 AM EDT Former Smoker completed Former Smoker eCW1 ([facility]) Smoking 12/24/2019 12:00:00 AM EDT Former Smoker completed Former Smoker eCW1 ([facility]) Smoking 12/24/2019 12:00:00 AM EDT Former Smoker completed Former Smoker eCW1 ([facility]) Smoking 08/08/2019 12:00:00 AM EST Former Smoker completed Former Smoker eCW1 ([facility]) Smoking 08/08/2019 12:00:00 AM EST Former Smoker completed Former Smoker eCW1 ([facility]) Vital Signs ID Date Data Source [id number] Name Value Range Interpretation Code Description Data Source(s) Body mass index (BMI) [Ratio] 35.5 kg/m2 35.5 k g/m2 [facility] ([facility]) Body weight 220.00 [lb_av] 220.00 [lb_av] MEDEN T ([facility]) Body height 66 [in_i] 66 [in_i] [facility] ([facility]) 5'6" Body temperature 96.8 [degF] 96.8 [degF] [facility] ([facility]) Diastolic blood pressure 81 mm[Hg] 81 mm[Hg] [facility] Systolic blood pressure 118 mm[Hg] 118 mm[Hg] M EDENT ([facility] Body weight 219.00 [lb_av] 219.00 [lb_av] MEDEN T ([facility] Body height 66 [in_i] 66 [in_i] [facility] 5'6" Body mass index (BMI) [Ratio] 35.3 kg/m2 35.3 k g/m2 [facility] ([facility] Heart rate 92 /min 92 /min [facility] ([facility] Diastolic blood pressure 86 mm[Hg] 86 mm[Hg] eCW1 ([facility]) Systolic blood pressure 127 mm[Hg] 127 mm[Hg] e CW1 ([facility]) Body temperature 97.1 [degF] 97.1 [degF] eCW1 ( [facility]) Respiratory rate 18 /min 18 /min eCW1 ([facility]) Heart rate 88 /min 88 /min eCW1 ([facility]) Body mass index (BMI) [Ratio] 35.67 kg/m2 35.67 kg/m2 W1 ([facility]) Body height 66 [in_i] 66 [in_i] eCW1 ([facility]) Body weight 221 [lb_av] 221 [lb_av] eCW1 ([facility]) Diastolic blood pressure 81 mm[Hg] 81 mm[Hg] eCW1 ([facility]) Systolic blood pressure 118 mm[Hg] 118 mm[Hg] e CW1 ([facility]) Body temperature [degF] eCW1 ([facility]) Respiratory rate 18 /min 18 /min eCW1 ([facility]) Heart rate 92 /min 92 /min eCW1 ([facility]) Body mass index (BMI) [Ratio] 35.34 kg/m2 35.34 kg/m2 eCW1 ([facility]) Body height 66 [in_us] 66 [in_us] eCW1 ([facility]) Body weight Measured 219 [lb_av] 219 [lb_av] eC W1 ([facility]) Patient Treatment Plan of Care Planned Activity Planned Date Details Description Data Source (s) Ibuprofen 600 MG Oral Tablet 12/24/2019 12:00:00 AM EDT eCW1 ([facility]) Ibuprofen 600 MG Oral Tablet 12/24/2019 12:00:00 AM EDT eCW1 ([facility]) Ibuprofen 600 MG Oral Tablet 12/24/2019 12:00:00 AM EDT eCW1 ([facility]) Ibuprofen 600 MG Oral Tablet 12/24/2019 12:00:00 AM EDT eCW1 ([facility]) Ibuprofen 600 MG Oral Tablet 12/24/2019 12:00:00 AM EDT eCW1 ([facility]) Ibuprofen 600 MG Oral Tablet 12/24/2019 12:00:00 AM EDT eCW1 ([facility]) Ibuprofen 600 MG Oral Tablet 12/24/2019 12:00:00 AM EDT eCW1 ([facility]) Ibuprofen 600 MG Oral Tablet 12/24/2019 12:00:00 AM EDT eCW1 ([facility]) Ibuprofen 600 MG Oral Tablet 12/24/2019 12:00:00 AM EDT eCW1 ([facility]) Ibuprofen 600 MG Oral Tablet 12/24/2019 12:00:00 AM EDT eCW1 ([facility]) Ibuprofen 600 MG Oral Tablet 12/24/2019 12:00:00 AM EDT eCW1 ([facility]) Ibuprofen 600 MG Oral Tablet 12/24/2019 12:00:00 AM EDT eCW1 ([facility]) lubiprostone 0.024 MG Oral Capsule [Amitiza] 11/29/2019 12:00:00 AM EDT eCW1 ([facility]) lubiprostone 0.024 MG Oral Capsule [Amitiza] 11/29/2019 12:00:00 AM EDT eCW1 ([facility]) lubiprostone 0.024 MG Oral Capsule [Amitiza] 11/29/2019 12:00:00 AM EDT eCW1 ([facility]) lubiprostone 0.024 MG Oral Capsule [Amitiza] 11/29/2019 12:00:00 AM EDT eCW1 ([facility]) lubiprostone 0.024 MG Oral Capsule [Amitiza] 11/29/2019 12:00:00 AM EDT eCW1 ([facility]) lubiprostone 0.024 MG Oral Capsule [Amitiza] 11/29/2019 12:00:00 AM EDT eCW1 ([facility]) lubiprostone 0.024 MG Oral Capsule [Amitiza] 11/29/2019 12:00:00 AM EDT eCW1 ([facility]) lubiprostone 0.024 MG Oral Capsule [Amitiza] 11/29/2019 12:00:00 AM EDT eCW1 ([facility]) lubiprostone 0.024 MG Oral Capsule [Amitiza] 11/29/2019 12:00:00 AM EDT eCW1 ([facility]) lubiprostone 0.024 MG Oral Capsule [Amitiza] 11/29/2019 12:00:00 AM EDT eCW1 ([facility]) lubiprostone 0.024 MG Oral Capsule [Amitiza] 11/29/2019 12:00:00 AM EDT eCW1 ([facility]) lubiprostone 0.024 MG Oral Capsule [Amitiza] 11/29/2019 12:00:00 AM EDT eCW1 ([facility]) lubiprostone 0.024 MG Oral Capsule [Amitiza] 11/29/2019 12:00:00 AM EDT eCW1 ([facility]) Nystatin 100 UNT/MG Topical Powder 06/24/2019 12:00:00 AM EST eCW1 ([facility])
[2020-07-17] MEDS ORDERED: ESCI10TA16 (08:52)
[2020-07-17] MEDS ORDERED: TROS20TA3 PO (08:52)
[2020-07-17] MEDS ORDERED: NAPR-885 (08:52)
[2020-07-17] MEDS ORDERED: NORTRIPTYLINE 25 MG CAP PO SCH (09:00)
[2020-07-17] MEDS ORDERED: ESCITALOPRAM OXALATE 10 MG TAB (LEXAPRO) PO SCH (09:00)
[2020-07-17] MEDS ORDERED: ATORVASTATIN 20 MG TAB PO SCH (09:00)
[2020-07-17] MEDS ORDERED: MAGNESIUM OXIDE 400MG TAB (MAG-OX) PO SCH (09:00)
[2020-07-17] MEDS ORDERED: PANTOPRAZOLE 40MG TAB (PROTONIX) PO SCH (09:00)
[2020-07-17] MEDS ORDERED: NS 1,000 ML IV ONE ×3 (09:15→17:00)
--- OUTSIDE RECORDS SUMMARY | 2020-07-17 09:15 | CCD ---
Author Author [facility] Organization [facility] Address Unknown Phone Unavailable Care Team Providers Care Reservationist Name Role Phone SEANAlexis PA Unavailable Unavailable [...] Unavailable Unavailable Lalito MATTHEWS DPM Unavailable Unavailable Llaito MATTHEWS DPM Unavailable Unavailable Lalito MATTHEWS DPM [...] Unavailable Unavailable Josh Rivers Unavailable Grybowski, T Adrien Unavailable Grybowski, T Darien Unavailable Grybowski, T [...] T Darien Unavailable + Alberry, D Cheli WELL SURVEYING ENGINEER Unavailable Unavailable Alberry, D Cheli WELL SURVEYING ENGINEER Unavailable Unavailable Alberry, D Cheli WELL SURVEYING ENGINEER Unavailable Unavailable Alberry, D Cheli WELL SURVEYING ENGINEER Unavailable Unavailable Alberry, D Cheli WELL SURVEYING ENGINEER Unavailable Unavailable Alberry, D Cheli WELL SURVEYING ENGINEER Unavailable Unavailable Alberry, D Cheli WELL SURVEYING ENGINEER Unavailable Unavailable Alberry, D Cheli WELL SURVEYING ENGINEER Unavailable Unavailable Alberry, D Cheli WELL SURVEYING ENGINEER Unavailable Unavailable Alberry, D Cheli WELL SURVEYING ENGINEER Unavailable Unavailable Alberry, D Cheli WELL SURVEYING ENGINEER Unavailable Unavailable Alberry, D Cheli WELL SURVEYING ENGINEER Unavailable Unavailable Alberry, D Cheli WELL SURVEYING ENGINEER Unavailable Unavailable Alberry, D Cheli WELL SURVEYING ENGINEER Unavailable Unavailable Alberry, D Cheli WELL SURVEYING ENGINEER Unavailable Unavailable Alberry, D Cheli WELL SURVEYING ENGINEER Unavailable Unavailable Alberry, D Cheli WELL SURVEYING ENGINEER Unavailable Unavailable Alberry, D Cheli WELL SURVEYING ENGINEER Unavailable Unavailable Alberry, D Cheli WELL SURVEYING ENGINEER Unavailable Unavailable Alberry, D Cheli WELL SURVEYING ENGINEER Unavailable Unavailable Alberry, D Hceli WELL SURVEYING ENGINEER Unavailable Unavailable Alberry, D Cheli WELL SURVEYING ENGINEER Unavailable Unavailable Alberry, D Cheli WELL SURVEYING ENGINEER Unavailable Unavailable Alberry, D Cheli WELL SURVEYING ENGINEER Unavailable Unavailable Alberry, D Cheli WELL SURVEYING ENGINEER Unavailable Unavailable Alberry, D Cheli WELL SURVEYING ENGINEER Unavailable Unavailable Alberry, D Cheli WELL SURVEYING ENGINEER Unavailable Unavailable Alberry, D Cheli WELL SURVEYING ENGINEER Unavailable Unavailable Alberry, D Cheli WELL SURVEYING ENGINEER Unavailable Unavailable Alberry, D Cheli WELL SURVEYING ENGINEER Unavailable Unavailable Alberry, D Cheli WELL SURVEYING ENGINEER Unavailable Unavailable Alberry, D Cheli WELL SURVEYING ENGINEER Unavailable Unavailable Alberry, D Cheli WELL SURVEYING ENGINEER Unavailable Unavailable Alberry, D Cheli WELL SURVEYING ENGINEER Unavailable Unavailable Alberry, D Cheli WELL SURVEYING ENGINEER Unavailable Unavailable Alberry, D Cheli WELL SURVEYING ENGINEER Unavailable Unavailable Alberry, D Cheli WELL SURVEYING ENGINEER Unavailable Unavailable Alberry, D Cheli WELL SURVEYING ENGINEER Unavailable Unavailable Alberry, D Cheli WELL SURVEYING ENGINEER Unavailable Unavailable Alberry, D Cheli WELL SURVEYING ENGINEER Unavailable Unavailable Alberry, D Cheli WELL SURVEYING ENGINEER Unavailable Unavailable Alberry, D Cheli WELL SURVEYING ENGINEER Unavailable Unavailable Alberry, D Cheli WELL SURVEYING ENGINEER Unavailable Unavailable Alberry, D Cheli WELL SURVEYING ENGINEER Unavailable Unavailable Alberry, D Cheli WELL SURVEYING ENGINEER Unavailable Unavailable Alberry, D Cheli WELL SURVEYING ENGINEER Unavailable Unavailable Alberry, D Cheli WELL SURVEYING ENGINEER Unavailable Unavailable Alberry, D Cheli WELL SURVEYING ENGINEER Unavailable Unavailable Fish, [facility], PA-C Unavailable Unavailabl e Fish, [facility], PA-C Unavailable Unavailabl e Fish, [facility], PA-C Unavailable Unavailabl e Fish, [facility], PA-C Unavailable Unavailabl e Fish, [facility], PA-C Unavailable Unavailabl e Fish, [facility], PA-C Unavailable Unavailabl e Fish, [facility], PA-C Unavailable Unavailabl e Fish, [facility], PA-C Unavailable Unavailabl e Fish, [facility], PA-C Unavailable Unavailabl e Fish, [facility], PA-C Unavailable Unavailabl e Fish, [facility], PA-C Unavailable Unavailabl e Fish, [facility], PA-C Unavailable Unavailabl e Fish, [facility], PA-C Unavailable Unavailabl e Fish, [facility], PA-C Unavailable Unavailabl e Fish, [facility], PA-C Unavailable Unavailabl e Fish, [facility], PA-C Unavailable Unavailabl e Fish, [facility], PA-C Unavailable Unavailabl e Fish, [facility], PA-C Unavailable Unavailabl e Fish, [facility], PA-C Unavailable Unavailabl e Fish, [facility], PA-C Unavailable Unavailabl e Fish, [facility], PA-C Unavailable Unavailabl e Fish, [facility], PA-C Unavailable Unavailabl e Fish, [facility], PA-C Unavailable Unavailabl e Fish, [facility], PA-C Unavailable Unavailabl e Fish, [facility], PA-C Unavailable Unavailabl e Fish, [facility], PA-C Unavailable Unavailabl e Fish, [facility], PA-C Unavailable Unavailabl e Fish, [facility], PA-C Unavailable Unavailabl e Fish, [facility], PA-C Unavailable Unavailabl e Fish, [facility], PA-C Unavailable Unavailabl e Fish, [facility], PA-C Unavailable Unavailabl e Fish, [facility], PA-C Unavailable Unavailabl e Fish, [facility], PA-C Unavailable Unavailabl e Josh RIVERSHEN Unavailable Unavailable Enriquez, Maria Elena WELL SURVEYING ENGINEER Unavailable Unavailable Enriquez, Maria Elena WELL SURVEYING ENGINEER Unavailable Unavailable Enriquez, Maria Elena WELL SURVEYING ENGINEER Unavailable Unavailable Enriquez, Maria Elena WELL SURVEYING ENGINEER Unavailable Unavailable Enriquez, Maria Elena WELL SURVEYING ENGINEER Unavailable Unavailable Enriquez, Maria Elena WELL SURVEYING ENGINEER Unavailable Unavailable Enriquez, Maria Elena WELL SURVEYING ENGINEER Unavailable Unavailable Enriquez, Maria Elena WELL SURVEYING ENGINEER Unavailable Unavailable Enriquez, Maria Elena WELL SURVEYING ENGINEER Unavailable Unavailable Enriquez, Maria Elena WELL SURVEYING ENGINEER Unavailable Unavailable Enriquez, Maria Elena WELL SURVEYING ENGINEER Unavailable Unavailable Enriquez, Maria Elena WELL SURVEYING ENGINEER Unavailable Unavailable Enriquez, Maria Elena WELL SURVEYING ENGINEER Unavailable Unavailable Enriquez, Maria Elena WELL SURVEYING ENGINEER Unavailable Unavailable Enriquez, Maria Elena WELL SURVEYING ENGINEER Unavailable Unavailable Enriquez, Maria Elena WELL SURVEYING ENGINEER Unavailable Unavailable Enriquez, Maria Elena WELL SURVEYING ENGINEER Unavailable Unavailable Enirquez, Maria Elena WELL SURVEYING ENGINEER Unavailable Unavailable Enriquez, Maria Elena WELL SURVEYING ENGINEER Unavailable Unavailable Enriquez, Maria Elena WELL SURVEYING ENGINEER Unavailable Unavailable Enriquez, Maria Elena WELL SURVEYING ENGINEER Unavailable Unavailable Enriquez, Maria Elena WELL SURVEYING ENGINEER Unavailable Unavailable Enriquez, Maria Elena WELL SURVEYING ENGINEER Unavailable Unavailable Enriquez, Maria Elena WELL SURVEYING ENGINEER Unavailable Unavailable Enriquez, Maria Elena WELL SURVEYING ENGINEER Unavailable Unavailable Enriquez, Maria Elena WELL SURVEYING ENGINEER Unavailable Unavailable Enriquez, Maria Elena WELL SURVEYING ENGINEER Unavailable Unavailable Enriquez, Maria Elena WELL SURVEYING ENGINEER Unavailable Unavailable Enriquez, Maria Elena WELL SURVEYING ENGINEER Unavailable Unavailable Enriquez, Maria Elena WELL SURVEYING ENGINEER Unavailable Unavailable Enriquez, Maria Elena WELL SURVEYING ENGINEER Unavailable Unavailable Enriquez, Maria Elena WELL SURVEYING ENGINEER Unavailable Unavailable Enriquez, Maria Elena WELL SURVEYING ENGINEER Unavailable Unavailable Enriquez, Maria Elena WELL SURVEYING ENGINEER Unavailable Unavailable Enriquez, Maria Elena WELL SURVEYING ENGINEER Unavailable Unavailable Enriquez, Maria Elena WELL SURVEYING ENGINEER Unavailable Unavailable KAYKAY VANEGAS MD Unavailable Unavailable [...] Unavailable MARKWITH, KAYKAY MD Unavailable Unavailable MARKWITH, AKYKAY MD Unavailable Unavailable MARKWITH, KAYKAY MD Unavailable [...] is protected by Article 27-F of the [facility] Public Health law. If you continue you may have access to information: Regarding HIV / AIDS; Provided by facilities licensed or operated by the [facility] Office of Mental Health; or Provided by the [facility] Office for People With Developmental Disabilities. If such information is present, then the following [place] mandated warning applies: This information has [...] law may result in a fine or care home sentence or both. A general authorization for the release of medical or other information is NOT sufficient authorization for further disc losure. Family History Family Member Name Family Member Gender Family Member Status Date o f Status Description Data Source(s) Unknown Unknown Problem MEDENT ([facility]) Unknown Male Problem MEDENT ([facility]) Encounters Encounter Providers Location Date Indications Data Source(s ) Unknown [address] [facility] [place] [address] 07/08/2020 12:00:00 AM EST eCW1 ([facility]) Office Visit Attender: AKYKAY VANEGAS MD Physical Therapy 09:00:00 AM EST MEDENT ([facility]) Unknown [address] [facility] [place] [address] 06/16/2020 12:00:00 AM EST eCW1 ([facility]) Unknown [address] [facility] [place] [address] 06/10/2020 12:00:00 AM EST eCW1 ([facility]) Office Visit Attender: KAYKAY VANEGAS MD Physical Therapy 09:00:00 AM EST MEDENT ([facility]) Unknown [address] [facility] [place] [address] 05/19/2020 12:00:00 AM EST eCW1 ([facility]) Outpatient Attender: Maria Elena GALLEGOPReferrer: Darien winkler 05/18/2020 12:00:00 PM EST - 05/18/2020 12:00:00 PM EST [facility] Unknown [address] [facility] [place] [address] 05/14/2020 12:00:00 AM EST eCW1 ([facility]) Outpatient Attender: Maria Elena GALLEGOPReferrer: Darien Yennifer friedmani 05/13/2020 10:30:00 AM [facility] Outpatient Attender: ALTHEA KIMBROUGH MD Main office - [facility] 05/04/2020 12:00:00 PM EST MEDENT ([facility]) Unknown [address] [facility] [address] 05/01/2020 12:00:00 AM EST eCW1 ([facility]) Unknown [address] [facility] [address] 04/29/2020 12:00:00 AM EST eCW1 ([facility]) Outpatient Attender: KAYKAY MATTHEWS [facility] Office 04/12 02:00:00 PM EST MEDENT ([facility] Unknown [address] [facility] [address] 04/24/2020 12:00:00 AM EST eCW1 ([facility]) Outpatient Attender: KAYKAY MATTHEWS [facility] Office 03/14 02:15:00 PM EDT MEDENT ([facility] Unknown [address] [facility] [address] 04/10/2020 12:00:00 AM EDT eCW1 ([facility]) Unknown [address] [facility] [address] 03/30/2020 12:00:00 AM EDT eCW1 ([facility]) Office Visit Attender: KAYKAY VANEGAS MD Physical Therapy 03:15:00 PM EDT MEDENT ([facility]) Unknown [address] [facility] [address] 03/11/2020 12:00:00 AM EDT [facility]CW1 [facility] Office Visit Attender: Birgit CARBALLO PA-C Physical Therapy 02/11/2020 01:15:00 PM EDT MEDENT ([facility]) [place] [address] [facility] [place] [address] 12/27/2019 12:00:00 AM EDT eCW1 ([facility]) Outpatient [address] [facility] [place] [address] 12/24/2019 12:00:00 AM EDT eCW1 ([facility]) Unknown [address] [facility] [address] [place] [address] 12/24/2019 12:00:00 AM EDT eCW1 ([facility]) Unknown [address] [facility] [address] [place] [address] 11/29/2019 12:00:00 AM EDT eCW1 ([facility]) Unknown [address] [facility] [place] [address] 11/12/2019 12:00:00 AM EDT eCW1 ([facility]) [facility] [address] [facility] [address] [place] [address] 10/30/2019 12:00:00 AM EDT eCW1 ([facility]) [facility] [address] [facility] [address] [place] [address] 10/23/2019 12:00:00 AM EDT eCW1 ([facility]) [facility] [address] [facility] [address] [place] [address] 10/14/2019 12:00:00 AM EDT eCW1 ([facility]) [facility] [address] [facility] [place] [address] 10/04/2019 12:00:00 AM EDT eCW1 ([facility]) Outpatient Attender: Birgit CARBALLO PA-C Physical Therapy 10/03/2019 09:00:00 AM EDT MEDENT ([facility]) [facility] [address] [place] [address] 09/18/2019 12:00:00 AM EDT eCW1 ([facility]) Outpatient Attender: Birgit CARBALLO PA-C Physical Therapy 09/12/2019 01:15:00 PM EDT MEDENT ([facility]) [address] [place] [address] 09/09/2019 12:00:00 AM EDT eCW1 [facility] [address] [place] [address] 08/19/2019 12:00:00 AM EDT eCW1 ([facility] [address] [address] 08/08/2019 12:00:00 AM EST [facility]CW1 ([facility] [place] [address] [place] [address] 08/02/2019 12:00:00 AM EST eCW1 ([facility] [place]) Emergency Attender: IVETT Alfaroer: Abhijeet Rivers EMERGENCY ROOM-ER 08/01/2019 01:21:00 PM EST - 08/01/2019 03:25:00 PM [facility] Patient discharged. [address] [place] [address] 08/01/2019 12:00:00 AM EST eCW1 [facility]) [address] [place] [address] 08/01/2019 12:00:00 AM EST eCW1 [facility] [address] [place] [address] 06/25/2019 12:00:00 AM EST eCW1 ([facility] [address] [place] [address] 06/24/2019 12:00:00 AM EST eCW1 ([facility]) Outpatient Attender: Darien Odom ttender: DARIEN RIVERSReferrer: Darien Rivers 05/16/2019 12:30:00 PM [facility] Outpatient Attender: Darien Odom ttender: DARIEN RIVERSReferrer: Cheli GALLEGOP 05/08/2019 12:00:00 PM EST - 05/08/2019 12:00:00 PM [facility] Medications Medication Brand Name Start Date Product [...] Oxycodone-Acetaminophen 07/01/2020 12:00:00 AM EST completed MEDENT ([facility] Escitalopram 20 MG [...] 05/29/2020 12:00:00 AM EST ORAL active MEDENT ([facility]) 5-325 mg 05/22/2020 12:00:00 [...] 12:00:00 AM EST ORAL active MEDENT ([facility], ) pantoprazole 40 MG Delayed Release Oral [...] 04/08/2020 12:00:00 AM EDT ORAL completed MEDENT ([facility]) Acetaminophen 325 MG / Oxycodone Hydrochloride 5 MG Or al Tablet [Percocet] Percocet 04/08/2020 12:00:00 AM EDT ORAL completed MEDENT ([facility]) 50 mg 03/31/2020 [...] E DT active Ibuprofen 600 MG eCW1 ([facility]) Ibuprofen 600 MG Oral Tablet Ibuprofen 600 MG 12/24/2019 12:00:00 AM E DT active Ibuprofen 600 MG eCW1 ([facility]) Ibuprofen 600 MG Oral Tablet Ibuprofen 600 MG 12/24/2019 12:00:00 AM E DT active Ibuprofen 600 MG eCW1 ([facility]) Ibuprofen 600 MG Oral Tablet Ibuprofen 600 MG 12/24/2019 12:00:00 AM E DT active Ibuprofen 600 MG eCW1 ([facility]) Ibuprofen 600 MG Oral Tablet Ibuprofen 600 MG 12/24/2019 12:00:00 AM E DT active Ibuprofen 600 MG eCW1 ([facility]) Ibuprofen 600 MG Oral Tablet Ibuprofen 600 MG 12/24/2019 12:00:00 AM E DT active Ibuprofen 600 MG eCW1 ([facility]) Ibuprofen 600 MG Oral Tablet Ibuprofen 600 MG 12/24/2019 12:00:00 AM E DT active Ibuprofen 600 MG eCW1 ([facility]) Ibuprofen 600 MG Oral Tablet Ibuprofen 600 MG 12/24/2019 12:00:00 AM E DT active Ibuprofen 600 MG eCW1 ([facility]) Ibuprofen 600 MG Oral Tablet Ibuprofen 600 MG 12/24/2019 12:00:00 AM E DT active Ibuprofen 600 MG eCW1 ([facility]) Ibuprofen 600 MG Oral Tablet Ibuprofen 600 MG 12/24/2019 12:00:00 AM E DT active Ibuprofen 600 MG eCW1 ([facility]) Ibuprofen 600 MG Oral Tablet Ibuprofen 600 MG 12/24/2019 12:00:00 AM E DT active Ibuprofen 600 MG eCW1 ([facility]) Ibuprofen 600 MG Oral Tablet Ibuprofen 600 MG 12/24/2019 12:00:00 AM E DT active Ibuprofen 600 MG eCW1 ([facility]) 600 mg 12/24/2019 12:00:00 AM EDT tablet [...] E DT active Ibuprofen 600 MG eCW1 ([facility]) Ibuprofen 600 MG Oral Tablet Ibuprofen 600 MG 12/24/2019 12:00:00 AM E DT active Ibuprofen 600 MG eCW1 ([facility]) 50 mg 12/11/2019 12:00:00 AM EDT tablet [...] AM EDT active Amitiza 24 MCG eCW1 ([facility]) lubiprostone 0.024 MG Oral Capsule [Amitiza] Amitiza 24 MCG Amitiza 24 MCG 11/29/2019 12:00:00 AM EDT active Amitiza 24 MCG eCW1 ([facility]) lubiprostone 0.024 MG Oral Capsule [Amitiza] Amitiza 24 MCG Amitiza 24 MCG 11/29/2019 12:00:00 AM EDT active Amitiza 24 MCG eCW1 ([facility]) lubiprostone 0.024 MG Oral Capsule [Amitiza] Amitiza 24 MCG Amitiza 24 MCG 11/29/2019 12:00:00 AM EDT active Amitiza 24 MCG eCW1 ([facility]) lubiprostone 0.024 MG Oral Capsule [Amitiza] Amitiza 24 MCG Amitiza 24 MCG 11/29/2019 12:00:00 AM EDT active Amitiza 24 MCG eCW1 ([facility]) lubiprostone 0.024 MG Oral Capsule [Amitiza] Amitiza 24 MCG Amitiza 24 MCG 11/29/2019 12:00:00 AM EDT active Amitiza 24 MCG eCW1 ([facility]) lubiprostone 0.024 MG Oral Capsule [Amitiza] Amitiza 24 MCG Amitiza 24 MCG 11/29/2019 12:00:00 AM EDT active Amitiza 24 MCG eCW1 ([facility]) lubiprostone 0.024 MG Oral Capsule [Amitiza] Amitiza 24 MCG Amitiza 24 MCG 11/29/2019 12:00:00 AM EDT active Amitiza 24 MCG eCW1 ([facility]) lubiprostone 0.024 MG Oral Capsule [Amitiza] Amitiza 24 MCG Amitiza 24 MCG 11/29/2019 12:00:00 AM EDT active Amitiza 24 MCG eCW1 ([facility]) lubiprostone 0.024 MG Oral Capsule [Amitiza] Amitiza 24 MCG Amitiza 24 MCG 11/29/2019 12:00:00 AM EDT active Amitiza 24 MCG eCW1 ([facility]) lubiprostone 0.024 MG Oral Capsule [Amitiza] Amitiza 24 MCG Amitiza 24 MCG 11/29/2019 12:00:00 AM EDT active Amitiza 24 MCG eCW1 ([facility]) lubiprostone 0.024 MG Oral Capsule [Amitiza] Amitiza 24 MCG Amitiza 24 MCG 11/29/2019 12:00:00 AM EDT active Amitiza 24 MCG eCW1 ([facility]) lubiprostone 0.024 MG Oral Capsule [Amitiza] Amitiza 24 MCG Amitiza 24 MCG 11/29/2019 12:00:00 AM EDT active Amitiza 24 MCG eCW1 ([facility]) lubiprostone 0.024 MG Oral Capsule [Amitiza] Amitiza 24 MCG Amitiza 24 MCG 11/29/2019 12:00:00 AM EDT active Amitiza 24 MCG eCW1 ([facility]) lubiprostone 0.024 MG Oral Capsule [Amitiza] Amitiza 24 MCG Amitiza 24 MCG 11/29/2019 12:00:00 AM EDT active Amitiza 24 MCG eCW1 ([facility]) 50 mg 11/13/2019 12:00:00 AM EDT tablet [...] s Nystatin 100 UNT/MG Topical Powder Nystatin 491404 UNI T/GM Nystatin 651988 UNIT/GM 06/24/2019 12:00:00 AM EST active 1 application eCW1 ([facility]) 50 mg 05/06/2019 12:00:00 AM EST tablet [...] type / Coverage type Policy ID Covered libertarian ID Covered libertarian's relationship to estevez Policy Estevez Plan Information SVETLANA [id number] SP [id number] SELF PAY ONLY [id number] SP [id number] [facility] MEDICAID [id number] S [id number] MEDICAID [id number] S [id number] [facility] MEDICAID [id number] S [id number] [facility] [id number] S [id number] MEDICAID [id number] [id number] [facility] [id number] SP [id number] [facility] Medicaid Commercial [id number] Self [id number] BC/BS Family Health Plus Medigap Part B [id number] Self [id number] Gold Commercial [id number] Self [id number] ANSI-Not a Secondary Insurance [id number] [facility] HEALTH CARE O [id number] S [id number] ANSI-Not a Secondary Insurance [id number] ANSI-Not a Secondary Insurance [id number] [id number] SP [id number] ANSI-Not a Secondary Insurance [id number] [facility] Medicaid Commercial [id number] Self [id number] MVP Medicaid Commercial [id number] Self [id number] BC/BS Family Health Plus Medigap Part B [id number] Self [id number] MVP Gold Commercial [id number] Self [id number] BC/BS Family Health Plus Medigap Part B [id number] Self [id number] MVP Gold Commercial [id number] Self [id number] BC/BS Family Health Plus Medigap Part B [id number] Self [id number] MVP Gold Commercial [id number] Self [id number] MVP MCDHMO [id number] SP [id number] BC/BS Family Health Plus Medigap Part B [id number] Self [id number] MVP Gold Commercial [id number] Self [id number] [employer]HC COMMUNITY PLAN MCDHMO [id number] SP [id number] [facility](MCAID) O [id number] S [id number] UNHC COMMUNITY PLAN MCDHMO [id number] SP [id number] [facility] MEDICAID [place] HMO [id number] S [id number] [facility] [id number] SP [id number] MEDICAID [id number] SP [id number] HMO BLUE [id number] SP [id number] BLUE CROSS GRAY PLAN [id number] SP [id number] [facility] [id number] SP [id number] BLUE CHOICE OPTION O [id number] S [id number] MEDICAID W [id number] S [id number] BLUE CHOICE OPTION O [id number] S [id number] Problems, Conditions, and Diagnoses Code Display Name Description Problem Type Effective Dates Data Source(s) 11270161 Calcaneal spur Calcaneal spur Problem 04/13/2020 12:00: 00 AM EST MEDENT ([facility] [id number] Plantar fascial fibromatosis Plantar fascial fibromato sis Problem 04/13/2020 12:00:00 AM EST MEDENT ([facility] E78.5 Dyslipidemia Dyslipidemia Problem 12/24/2019 12:00:00 A M EDT eCW1 ([facility]) N60.02 Solitary cyst of left breast SOLITARY CYST OF LEFT LIDIA AST Diagnosis 05/18/2020 12:00:00 PM [facility] N60.01 Solitary cyst of right breast SOLITARY CYST OF RIGHT B REAST Diagnosis 05/18/2020 12:00:00 PM [facility] R92.8 Other abnormal and inconclusive findings on diagnostic imaging of breast OTH ABN AND INCONCLUSIVE FINDINGS ON DX IMAGING OF BREAST Diagnosis 05/18/2020 12:00:00 PM [facility] Z12.31 Encounter for screening mammogram for ma lignant neoplasm of breast ENCNTR SCREEN MAMMOGRAM FOR MALIGNANT NEOPLASM OF BREAST Diagnosis 07/2019 10:30:00 AM [facility] J01.00 Acute maxillary sinusitis, unspecified A CUTE MAXILLARY SINUSITIS, UNSPECIFIED Diagnosis 08/01/2019 01:21:00 [facility]9 Unspecified bacterial pneumonia UNSPECIFIED BACTERIAL PNEUMONIA Diagnosis 08/01/2019 01:21:00 PM [facility] R09.3 Abnormal sputum ABNORMAL SPUTUM Diagnosis 08/01/2019 01:2 1:00 PM [facility] Surgeries/Procedures Procedure Description Date Indications Data Source(s) APPLICATION MODALITY 1/> AREAS HOT/COLD PACKS 07/16/19 21 12:00:00 AM EST [facility] ([facility]) THERAPEUTIC PX 1/> AREAS EACH 15 MIN EXERCISES 021 12:00:00 AM EST [facility] ([facility] ) THERAPEUTIC PX 1/> AREAS EACH 15 MIN EXERCISES 021 12:00:00 AM EST [facility] ([facility] ) APPLICATION MODALITY 1/> AREAS HOT/COLD PACKS 07/06/19 21 12:00:00 AM EST [facility] ([facility] ) THERAPEUTIC PX 1/> AREAS EACH 15 MIN EXERCISES 021 12:00:00 AM EST [facility] ([facility] ) APPLICATION MODALITY 1/> AREAS HOT/COLD PACKS 06/17/19 21 12:00:00 AM EST [facility] ([facility] ) THERAPEUTIC PX 1/> AREAS EACH 15 MIN EXERCISES 021 12:00:00 AM EST [facility] ([facility] ) APPLICATION MODALITY 1/> AREAS HOT/COLD PACKS 06/15/19 21 12:00:00 AM EST [facility] ([facility] ) THERAPEUTIC PX 1/> AREAS EACH 15 MIN EXERCISES 021 12:00:00 AM EST [facility] ([facility]) Physical Therapy Eval - Low Complexity 06/02/2020 12:0 0:00 AM EST [facility] ([facility] ) SHOULDER SCOPE BONE SHAVING 05/20/2020 12:00:00 AM EST [facility] ([facility]) ARTHROSCOPY SHOULDER ROTATOR CUFF REPAIR 05/20/2020 12 :00:00 AM EST [facility] ([facility]) Magnetic Resonance Angiogtaphy Head W/O Contrast Material(S) 05/18/2020 12:00:00 AM EST [facility] ([facility]) Magnetic Resonance Angiogtaphy Head W/O Contrast Material(S) 05/18/2020 12:00:00 AM EST [facility] ([facility]) Magnetic Resonance Angiography Neck W/O Contrast Materials 05/18/2020 12:00:00 AM EST [facility] ([facility]) Magnetic Resonance Angiography Neck W/O Contrast Materials 05/18/2020 12:00:00 AM EST [facility] ([facility]) MRI BRAIN BRAIN STEM W/O CONTRAST MATERIAL 05/18/2020 12:00:00 AM EST [facility] ([facility] ) MRI BRAIN BRAIN STEM W/O CONTRAST MATERIAL 05/18/2020 12:00:00 AM EST [facility] ([facility] ) Needle electromyography, each extremity, with related paraspinal areas, when performed, done with nerve conduction, amplitude and latency/velocity study; complete, five or more muscles studied, innervated by three or more nerves or four or more spinal levels (list separately in addition to the code for primary procedure). 05/13/2020 12:00:00 AM EST MED[facility] T ([facility], ) Needle electromyography, each extremity, with related paraspinal areas, when performed, done with nerve conduction, amplitude and latency/velocity study; complete, five or more muscles studied, innervated by three or more nerves or four or more spinal levels (list separately in addition to the code for primary procedure). 05/13/2020 12:00:00 AM EST MED[facility] T ([facility], ) [address]92 Nerve conduction studies 13 or more studies NEW 201205/13/2020 12:00:00 AM EST [facility] ([facility] ) TSTG ANS FUNCJ CARDIOVAGAL INNERVAJ PARASYMP 0 12:00:00 AM EST [facility] ([facility] ) TSTG ANS FUNCJ CARDIOVAGAL INNERVAJ PARASYMP 0 12:00:00 AM EST [facility] ([facility] ) TESTING AUTONOMIC NERVOUS SYSTEM FUNCTION 05/13/2020 1 2:00:00 AM EST [facility] ([facility] ) TESTING AUTONOMIC NERVOUS SYSTEM FUNCTION 05/13/2020 1 2:00:00 AM EST [facility] ([facility] ) NON-INVASIVE PHYSIOLOGIC STUDY EXTREMITY 3 LEVLS 05/13 12:00:00 AM EST [facility] ([facility] ) APPLICATION MODALITY 1/> AREAS HOT/COLD PACKS 04/30/20 20 12:00:00 AM EST [facility] ([facility] ) THERAPEUTIC PX 1/> AREAS EACH 15 MIN EXERCISES 12:00:00 AM EST [facility] ([facility] ) Physical Therapy Eval - Low Complexity 04/24/2020 12:0 0:00 AM EST [facility] ([facility]) Strapping Foot Or Ankle 04/10/2020 12:00:00 AM EDT [facility] ([facility] RADEX FOOT COMPLETE MINIMUM 3 VIEWS 04/10/2020 12:00:0 0 AM EDT [facility] ([facility] ARTHROCENTESIS ASPIR&/INJECTION MAJOR JT/BURSA 12:00:00 AM EDT [facility] ([facility] ) RADEX SHOULDER COMPLETE MINIMUM 2 VIEWS 09/12/2019 12: 00:00 AM EDT [facility] ([facility]) Results ID Date Data Source [id number] 06/20/2020 12:00:00 AM EST [facility] Name Value Range Interpretation Code Description Data Ammy rce(s) Supporting Document(s) SARS-CoV-2 (COVID-19) RNA [Presence] in Respiratory specimen by VERA with probe detection Not Detected [facility] This lab was ordered by [facility] and reported by [employer] ID Date Data Source [id number] 05/19/2020 10:12:00 AM [facility] [...] rce(s) Supporting Document(s) ID Date Data Source [id number] 05/19/2020 10:12:00 AM EST [facility] [...] rce(s) Supporting Document(s) ID Date Data Source [id number] 05/18/2020 03:10:00 PM EST [facility] [...] MAMMO 05/18/2020 12:00:00 AM EST [facility]CW[facility] ( [facility]) Name Value Range Interpretation Code Description Data Ammy rce(s) Supporting Document(s) DIAGNOSTIC BILATERAL MAMMO eCW 1 ([facility]) ID Date Data Source [id number] 05/15/2020 10:00:00 AM EST [facility] ([facility]) Name Value Range Interpretation Code Description Data Ammy rce(s) Supporting Document(s) Coronavirus 2019 Nasopharygeal Laboratory test result [facility] ([facility]) This nucleic acid amplification test was developed and its performance characteristics determined by [employer] Nucleic acid amplification tests include PCR and [...] detected) result in this assay. Performed at: [facility], [place] [address] [id number] [employer] Layer: Maeve Mcfadden PhD, Phone: [phone] Not Detected ID Date Data Source [id number] 05/15/2020 10:00:00 AM EST [facility] Name Value Range Interpretation Code Description Data Ammy rce(s) Supporting Document(s) SARS coronavirus 2 RNA [facility] This lab was ordered by [facility] and reported by [facility]. ID Date Data Source [id number] 05/13/2020 01:47:00 PM EST [facility] ([facility], ) Name Value Range Interpretation Code Description Data Ammy rce(s) Supporting Document(s) Rheumatoid factor [Units/volume] in Serum or Plasma Laborato ry test result 0.0-13.9 [facility] ([facility], ) Thyrotropin [Units/volume] in Serum or Plasma 2.250 uIU/mL 0.450-4.50 0 [facility] ([facility]) Erythrocyte sedimentation rate by 2H Westergren method 22 mm/hr 0-4 0 [facility] ([facility]) Nuclear Ab [Titer] in Serum by Immunofluorescence Laboratory test res ult [facility] ([facility], ) <content>Negative <1:80</content>
<content>Borderline 1:80</content>
<content>Positive >1:80</content>
<content></content> Calcidiol [Mass/volume] in Serum or Plasma 31.6 ng/mL 30.0-100.0 [facility] ([facility]) Vitamin D deficiency has been defined by the [place] of [employer] and an Endocrine Society practice guideline as a level of serum 25-OH vitamin D less than 20 ng/mL (1,2). The Endocrine Society went on to further define vitamin D insufficiency as a level between 21 and 29 ng/mL (2). 1. IOM ([place] of [employer]). 2010. Di etary reference intakes for calcium and D. [place]: The National Academies Press. 2. Franchesca ROTH, Gavi GILLIAM, Levy ramos VELASCO, et al. Evaluation, treatment, and prevention of vitamin D deficiency: an Endocrine Society clinical practice guideline. JCEM. 2010; 96(7):1911-30. Laboratory test finding (navigational concept) [facility] ID Date Data Source [id number] 05/13/2020 01:47:00 PM EST [facility] ([facility]) Name Value Range Interpretation Code Description Data Ammy rce(s) Supporting Document(s) Creatinine [Mass/volume] in Serum or Plasma 0.98 mg/dL 0.57-1.00 [facility] ([facility]) Urea nitrogen [Mass/volume] in Serum or Plasma 19 mg/dL 6-24 [facility] ([facility]) Glucose [Mass/volume] in Serum or Plasma 95 mg/dL 65-99 [facility] ([facility]) Urea nitrogen/Creatinine [Mass Ratio] in Serum or Plasma 19 9 -23 [facility] ([facility]) eGFR If Africn Am 74 mL/min/1.73 [facility] ([facility]) eGFR If NonAfricn Am 64 mL/min/1.73 MEDE NT ([facility]) Sodium [Moles/volume] in Serum or Plasma 142 mmol/L 134-144 [facility] ([facility]) Chloride [Moles/volume] in Serum or Plasma 104 mmol/L 96-106 [facility] ([facility]) Potassium [Moles/volume] in Serum or Plasma 5.1 mmol/L 3.5-5.2 [facility] ([facility]) Calcium [Mass/volume] in Serum or Plasma 9.7 mg/dL 8.7-10.2 [facility] ([facility]) Protein [Mass/volume] in Serum or Plasma 6.7 g/dL 6.0-8.5 [facility] ([facility]) Carbon dioxide, total [Moles/volume] in Serum or Plasma 26 mmol/L 20 -29 [facility] ([facility]) Globulin [Mass/volume] in Serum by calculation 2.3 g/dL 1.5-4.5 [facility] ([facility]) Albumin/Globulin [Mass Ratio] in Serum or Plasma 1.9 1.2-2.2 [facility] ([facility]) Albumin [Mass/volume] in Serum or Plasma 4.4 g/dL 3.8-4.9 [facility] ([facility]) Bilirubin.total [Mass/volume] in Serum or Plasma Laboratory test result 0.0-1.2 [facility] Alkaline phosphatase [Enzymatic activity/volume] in Serum or Plasma 85 IU/L 39-117 [facility] Aspartate aminotransferase [Enzymatic activity/volume] in Serum or Plasma 24 IU/L 0-40 [facility] Alanine aminotransferase [Enzymatic activity/volume] in Seru m or Plasma 27 IU/L 0-32 [facility] ID Date Data Source [id number] 05/13/2020 01:47:00 PM EST [facility] Name Value Range Interpretation Code Description Data Ammy rce(s) Supporting Document(s) Leukocytes [#/volume] in Blood by Automated count 10.4 x10E3/uL 3.4-1 0.8 [facility] Hematocrit [Volume Fraction] of Blood by Automated count 43.8 % 3 4.0-46.6 [facility] Hemoglobin [Mass/volume] in Blood 14.3 g/dL 11.1-15.9 [facility] ([facility]) Erythrocytes [#/volume] in Blood by Automated count 5.12 x10E6/uL 3.7 7-5.28 [facility] Erythrocyte mean corpuscular hemoglobin [Entitic mass] by Automated count 27.9 pg 26.6-33.0 [facility] Erythrocyte mean corpuscular volume [Entitic volume] by Auto mated count 86 fL 79-97 [facility] Erythrocyte mean corpuscular hemoglobin concentration [Mass/volume] by Automated count 32.6 g/dL 31.5-35.7 [facility] Erythrocyte distribution width [Ratio] by Automated count 13.5 % 11.7-15.4 [facility] Platelets [#/volume] in Blood by Automated count 354 x10E3/uL 150-450 [facility] Neutrophils/100 leukocytes in Blood by Automated count 59 % [facility] Monocytes/100 leukocytes in Blood by Automated count 7 % [facility] Eosinophils/100 leukocytes in Blood by Automated count 1 % [facility] ([facility]) Lymphocytes/100 leukocytes in Blood by Automated count 31 % [facility] ([facility]) Neutrophils [#/volume] in Blood by Automated count 6.2 x10E3/uL 1.4-7 .0 [facility] ([facility]) Basophils/100 leukocytes in Blood by Automated count 1 % [facility] ([facility]) Immature cells [#/volume] in Blood Laboratory test result [facility] ([facility]) Monocytes [#/volume] in Blood 0.8 x10E3/uL 0.1-0.9 [facility] ([facility]) Lymphocytes [#/volume] in Blood 3.2 x10E3/uL 0.7-3.1 [facility] ([facility]) Immature granulocytes/100 leukocytes in Blood by Automated count 1 % [facility] ([facility]) Basophils [#/volume] in Blood by Automated count 0.1 x10E3/uL 0.0-0.2 [facility] ([facility]) Eosinophils [#/volume] in Blood by Automated count 0.1 x10E3/uL 0.0-0 .4 [facility] ([facility]) Immature granulocytes [#/volume] in Blood by Automated count 0.1 x10E3/uL 0.0-0.1 [facility] ([facility]) Morphology [Interpretation] in Blood Narrative Laboratory test result [facility] ([facility]) Nucleated erythrocytes/100 leukocytes [Ratio] in Blood by Automated count Laboratory test result [facility] ([facility]) ID Date Data Source [id number] 05/13/2020 01:27:00 PM [facility] [...] analyzed through the latest version of the [facility] computer aid eddiagnosis system. The patient states [...] rce(s) Supporting Document(s) ID Date Data Source [id number] 03/02/2020 12:00:00 AM EDT [facility] Name Value Range Interpretation Code Description Data Ammy rce(s) Supporting Document(s) SARS coronavirus 2 RNA [facility] This lab was ordered by [employer] and rep orted by [facility]. ID Date Data Source [id number] 08/01/2019 06:27:00 PM EST [facility] Patient: MATTHEW CALVIN Observation Report - [facility].VisitID: [id number] [place] [address] [phone], [facility] Date/Time: 08/01/2019 12:44 Weight:99.7 kg (S). Height/Length:66 [...] Name Value Range Interpretation Code Description Data [facility](s) Supporting Document(s) ID Date Data Source [id number] 08/01/2019 01:22:00 PM [facility] DATE OF EXAMINATION: 08/01/2019 13:04 [...] Name Value Range Interpretation Code Description Data [facility](s) Supporting Document(s) ID Date Data Source [id number] 08/01/2019 01:49:00 PM [facility] TSYSORDER [id number] Name Value Range Interpretation Code Description Data [facility](s) Supporting Document(s) GLUCOSE 92 mg/dL 74-106 [facility] BLOOD UREA NITROGEN 20 mg/dL 7-18 [facility] ital CREATININE 1.1 mg/dL 0.6-1.0 H [facility] SODIUM 141 mmol/L 136-145 [facility] POTASSIUM 3.6 mmol/L 3.5-5.1 [facility] CHLORIDE 103 mmol/L 98-107 [facility] CO2 27 mmol/L 21-32 [facility] CALCIUM 9.4 mg/dL 8.5-10.1 [facility] ANION GAP 11.0 mmol/L 5-12 [facility] GLOMERULAR FILTRATION RATE 51 mL/min [facility] GFR IS CALCULATED IN mL/min/1.73m2 YULIANA L FUNCTION: >90MILDLY DECREASED: 60-89MILDY TO MODERATELY DECREASED: 45-59 MODERATELY TO SEVERELY DECREASED: 30-44SEVERELY DECREASED: 15-29RENAL FAILURE: <15 AST 20 U/L 15-37 [facility] ALT 26 U/L 12-78 [facility] ALKALINE PHOSPHATASE 81 U/L 46-116 [facility] TOTAL BILIRUBIN 0.3 mg/dL 0.2-1.0 [facility] TOTAL PROTEIN 8.3 g/dl 6.4-8.2 H [facility] ALBUMIN 4.4 gm/dL 3.4-5.0 [facility] ID Date Data Source [id number] 08/01/2019 01:31:00 PM [facility] TSYSORDER [id number] Name Value Range Interpretation Code Description Data [facility](s) Supporting Document(s) WHITE BLOOD COUNT 11.5 K/mm3 4.0-10.0 [facility] adrianne RED BLOOD COUNT 5.20 M/mm3 4.00-5.50 [facility] HEMOGLOBIN 14.7 gm/dL 12.0-16.0 [facility] HEMATOCRIT 45.4 % 36.0-48.8 [facility] MEAN CELL VOLUME 87.3 fl 80-96 [facility] MEAN CORPUSCULAR HEMOGLOBIN 28.3 pg 27.0-31.0 [facility] MEAN CORPUSCULAR HGB CONC 32.4 g/dl 32.0-36.0 [facility] RED CELL DISTRIBUTION WIDTH 13.5 % 10.0-14.5 [facility] PLATELET COUNT 350 K/mm3 172-450 [facility] MEAN PLATELET VOLUME 9.3 fl 9.0-13.0 [facility] GRAN % 58.3 % 50-80.0 [facility] IG% 0.7 % 0.0-0.2 [facility] LYMPH % 30.0 % 25.0-50.0 [facility] MONO % 9.1 % 2.0-10.0 [facility] EOS % 1.5 % 0-5.0 [facility] BASO % 0.4 % 0.0-2.0 [facility] GRAN # 6.7 K/mm3 2.0-8.00 [facility] IG# 0.1 K/mm3 0.0-0.2 [facility] LYMPH # 3.4 K/mm3 1.0-5.0 [facility] MONO # 1.0 K/mm3 0.10-1.20 [facility] EOS # 0.2 K/mm3 0.0-0.5 [facility] BASO # 0.1 K/mm3 0.0-0.2 [facility] ID Date Data Source [id number] 08/01/2019 01:31:00 PM EST [facility] [id number] Name Value Range Interpretation Code Description Data Ammy rce(s) Supporting Document(s) INFLUENZA A NEGATIVE NEGATIVE [facility] INFLUENZA B NEGATIVE NEGATIVE [facility] This is a rapid molecular in vitro [...] EST Former Smoker completed Former Smoker eCW1 ([facility]) Smoking 07/08/2020 12:00:00 AM EST Former Smoker completed Former Smoker eCW1 ([facility]) Smoking 12/24/2019 12:00:00 AM EDT Former Smoker completed Former Smoker eCW1 ([facility]) Smoking 12/24/2019 12:00:00 AM EDT Former Smoker completed Former Smoker eCW1 ([facility]) Smoking 12/24/2019 12:00:00 AM EDT Former Smoker completed Former Smoker eCW1 ([facility]) Smoking 12/24/2019 12:00:00 AM EDT Former Smoker completed Former Smoker eCW1 ([facility]) Smoking 12/24/2019 12:00:00 AM EDT Former Smoker completed Former Smoker eCW1 ([facility]) Smoking 12/24/2019 12:00:00 AM EDT Former Smoker completed Former Smoker eCW1 ([facility]) Smoking 12/24/2019 12:00:00 AM EDT Former Smoker completed Former Smoker eCW1 ([facility]) Smoking 12/24/2019 12:00:00 AM EDT Former Smoker completed Former Smoker eCW1 ([facility]) Smoking 12/24/2019 12:00:00 AM EDT Former Smoker completed Former Smoker eCW1 ([facility]) Smoking 12/24/2019 12:00:00 AM EDT Former Smoker completed Former Smoker eCW1 ([facility]) Smoking 12/24/2019 12:00:00 AM EDT Former Smoker completed Former Smoker eCW1 ([facility]) Smoking 12/24/2019 12:00:00 AM EDT Former Smoker completed Former Smoker eCW1 ([facility]) Smoking 08/08/2019 12:00:00 AM EST Former Smoker completed Former Smoker eCW1 ([facility]) Smoking 08/08/2019 12:00:00 AM EST Former Smoker completed Former Smoker eCW1 ([facility]) Vital Signs ID Date Data Source [id number] Name Value Range Interpretation Code Description Data Source(s) Body mass index (BMI) [Ratio] 35.5 kg/m2 35.5 k g/m2 [facility] ([facility]) Body weight 220.00 [lb_av] 220.00 [lb_av] MEDEN T ([facility]) Body height 66 [in_i] 66 [in_i] [facility] ([facility]) 5'6" Body temperature 96.8 [degF] 96.8 [degF] [facility] ([facility]) Diastolic blood pressure 81 mm[Hg] 81 [...] blood pressure 86 mm[Hg] 86 mm[Hg] eCW1 ([facility]) Systolic blood pressure 127 mm[Hg] 127 mm[Hg] e CW1 ([facility]) Body temperature 97.1 [degF] 97.1 [degF] eCW1 ( [facility]) Respiratory rate 18 /min 18 /min eCW1 ([facility]) Heart rate 88 /min 88 /min eCW1 ([facility]) Body mass index (BMI) [Ratio] 35.67 kg/m2 35.67 kg/m2 W1 ([facility]) Body height 66 [in_i] 66 [in_i] [facility] Body weight 221 [lb_av] 221 [lb_av] eCW1 ([facility]) Diastolic blood pressure 81 mm[Hg] 81 mm[Hg] eCW1 ([facility]) Systolic blood pressure 118 mm[Hg] 118 mm[Hg] e CW1 ([facility]) Body temperature [degF] eCW1 ([facility]) Respiratory rate 18 /min 18 /min eCW1 ([facility]) Heart rate 92 /min 92 /min eCW1 ([facility]) Body mass index (BMI) [Ratio] 35.34 kg/m2 35.34 kg/m2 eCW1 ([facility]) Body height 66 [in_us] 66 [in_us] [facility] Body weight Measured 219 [lb_av] 219 [lb_av] eC W1 ([facility]) Patient Treatment Plan of Care Planned Activity Planned Date Details Description Data Source (s) Ibuprofen 600 MG Oral Tablet 12/24/2019 12:00:00 AM EDT eCW1 ([facility]) Ibuprofen 600 MG Oral Tablet 12/24/2019 12:00:00 AM EDT eCW1 ([facility]) Ibuprofen 600 MG Oral Tablet 12/24/2019 12:00:00 AM EDT eCW1 ([facility]) Ibuprofen 600 MG Oral Tablet 12/24/2019 12:00:00 AM EDT eCW1 ([facility]) Ibuprofen 600 MG Oral Tablet 12/24/2019 12:00:00 AM EDT eCW1 ([facility]) Ibuprofen 600 MG Oral Tablet 12/24/2019 12:00:00 AM EDT eCW1 ([facility]) Ibuprofen 600 MG Oral Tablet 12/24/2019 12:00:00 AM EDT eCW1 ([facility]) Ibuprofen 600 MG Oral Tablet 12/24/2019 12:00:00 AM EDT eCW1 ([facility]) Ibuprofen 600 MG Oral Tablet 12/24/2019 12:00:00 AM EDT eCW1 ([facility]) Ibuprofen 600 MG Oral Tablet 12/24/2019 12:00:00 AM EDT eCW1 ([facility]) Ibuprofen 600 MG Oral Tablet 12/24/2019 12:00:00 AM EDT eCW1 ([facility]) Ibuprofen 600 MG Oral Tablet 12/24/2019 12:00:00 AM EDT eCW1 ([facility]) lubiprostone 0.024 MG Oral Capsule [Amitiza] 11/29/2019 12:00:00 AM EDT eCW1 ([facility]) lubiprostone 0.024 MG Oral Capsule [Amitiza] 11/29/2019 12:00:00 AM EDT eCW1 ([facility]) lubiprostone 0.024 MG Oral Capsule [Amitiza] 11/29/2019 12:00:00 AM EDT eCW1 ([facility]) lubiprostone 0.024 MG Oral Capsule [Amitiza] 11/29/2019 12:00:00 AM EDT eCW1 ([facility]) lubiprostone 0.024 MG Oral Capsule [Amitiza] 11/29/2019 12:00:00 AM EDT eCW1 ([facility]) lubiprostone 0.024 MG Oral Capsule [Amitiza] 11/29/2019 12:00:00 AM EDT eCW1 ([facility]) lubiprostone 0.024 MG Oral Capsule [Amitiza] 11/29/2019 12:00:00 AM EDT eCW1 ([facility]) lubiprostone 0.024 MG Oral Capsule [Amitiza] 11/29/2019 12:00:00 AM EDT eCW1 ([facility]) lubiprostone 0.024 MG Oral Capsule [Amitiza] 11/29/2019 12:00:00 AM EDT eCW1 ([facility]) lubiprostone 0.024 MG Oral Capsule [Amitiza] 11/29/2019 12:00:00 AM EDT eCW1 ([facility]) lubiprostone 0.024 MG Oral Capsule [Amitiza] 11/29/2019 12:00:00 AM EDT eCW1 ([facility]) lubiprostone 0.024 MG Oral Capsule [Amitiza] 11/29/2019 12:00:00 AM EDT eCW1 ([facility]) lubiprostone 0.024 MG Oral Capsule [Amitiza] 11/29/2019 12:00:00 AM EDT eCW1 ([facility]) Nystatin 100 UNT/MG Topical Powder 06/24/2019 12:00:00 AM EST eCW1 ([facility])
[2020-07-17] MEDS ORDERED: ISOVUE-370 76% 100ML VIAL As Ordered ONE (09:22)
[2020-07-17] MEDS ORDERED: MORPHINE 4 MG/ML 1ML VIAL/SYRINGE (J2270) IV ONE (09:30)
[2020-07-17 09:35] LABS: BASO # 0.1 10^3/uL (0.0-0.2); BASO % 0.4 % (0.0-1.0); HEMATOCRIT 49.5 % (36.0-47.0); HEMOGLOBIN 15.7 g/dl (12.0-15.5); LYMPH # 1.2 10^3/uL (1.5-5.0); LYMPH % 5.7 % (24.0-44.0); MEAN CORPUSCULAR HEMOGLOBIN 27.5 pg (27.0-33.0); MEAN CORPUSCULAR HGB CONC 31.7 g/dl (32.0-36.5); MEAN CORPUSCULAR VOLUME 86.7 fl (80.0-96.0); MONO # 1.4 10^3/uL (0.0-0.8); MONO % 6.8 % (0.0-5.0); NEUTROPHILS # 17.7 10^3/uL (1.5-8.5); NEUTROPHILS % 85.7 % (36.0-66.0); PLATELET COUNT, AUTOMATED 400 10^3/uL (150-450); RED BLOOD COUNT 5.71 10^6/uL (4.00-5.40)
[2020-07-17 09:37] LABS: WHITE BLOOD COUNT 20.7 10^3/uL (4.0-10.0)
[2020-07-17] MEDS ORDERED: KETOROLAC 30 MG/ML 1ML VIAL IV ONE (09:45)
--- NOTE | 2020-07-17 09:52 | REP ---
INDICATION: diffuse abd pain, worse LLQ, n/v hx diverticulitis. COMPARISON: Comparison CT study is from 09 February 2017. TECHNIQUE: Helical scanning was acquired and 4 mm axial images are re-formatted. Coronal and sagittal MPR images were generated and reviewed. The contrast enhancement dose is 100 mL of intravenous Isovue 370. FINDINGS: Preliminary digital liquor blender radiograph demonstrates moderate to marked gaseous distention of the stomach and moderate air a distended small bowel loops. There is some air and stool in the distal colon and rectum. There are clips in right upper quadrant of the abdomen. There is mild diffuse fatty infiltration of the liver. The previously noted 3.5 cm low-density area is less conspicuous but still seen, smaller in appearance suggesting focal fatty infiltration. The gallbladder surgically absent. The common bile duct and central intrahepatic ducts are prominent similar to the prior study. CBD measures 14 mm in the head of the pancreas. There is edema within the pancreas and in the peripancreatic soft tissues particularly the pancreatic head consistent with pancreatitis. There is some right pericolic gutter fluid. Air and fluid dilated stomach duodenal C loop, ligament of Treitz and proximal jejunal loops are seen. The distal small bowel is decompressed consistent with fairly high-grade small bowel obstruction. No obstructive pathology is appreciated but there is a a clear transition point in the central abdomen beyond which the small bowel loops are small. There is some stool in the colon. A normal appendix is seen in the right lower quadrant. There is no CT evidence of diverticulitis. No uterine or ovarian lesion is seen. There is a some defer diverticulosis of the sigmoid colon. No CT evidence of diverticulitis. The previously noted ventral hernia has been repaired. No abdominal wall defect is seen. There is no evidence of abscess or free intraperitoneal air. IMPRESSION: Findings consistent with a high-grade mid to proximal small bowel obstruction without a discernible obstructive lesion. There is evidence of pancreatitis with peripancreatic and intrapancreatic edema. There is mild extrahepatic bile duct dilation which is unchanged from the February 09, [address] study. <Electronically signed by Harry Nayak > 07/17/20 [id number]
[2020-07-17] MEDS ORDERED: PIPERACILLIN/TAZOBACTAM SOD 3.375 GM in D5W MINI-BAG PLUS 50 ML IV ONE (10:15)
[2020-07-17] MEDS ORDERED: VITA50005 PO (10:22)
[2020-07-17] MEDS ORDERED: MAGN400T3 PO (10:22)
[2020-07-17] MEDS ORDERED: ESCI20TA16 PO (10:22)
[2020-07-17 10:29] LABS: ALBUMIN 4.1 GM/DL (3.2-5.2); ALT/SGPT 98 U/L (12-78); BILIRUBIN,DIRECT < 0.1 MG/DL (0.0-0.2); BILIRUBIN,TOTAL 0.3 MG/DL (0.2-1.0); CK-MB VALUE MASS 2.2 NG/ML (<3.6); CPK CREATINE PHOSPHOKINASE 58 U/L (26-192); LIPASE 8836 U/L (73-393); MB/CK RELATIVE INDEX 3.79 (< OR =4); TOTAL PROTEIN 7.9 GM/DL (6.4-8.2); TROPONIN I < 0.02 NG/ML (< 0.10)
[2020-07-17 10:45] LABS: RSV AMPLIFICATION NEGATIVE (NEGATIVE)
[2020-07-17] MEDS ORDERED: MOM 30ML SUSPENSION UDC PO PRN (14:15)
[2020-07-17] MEDS ORDERED: NS 1,000 ML IV SCH (14:15)
[2020-07-17] MEDS ORDERED: ACETAMINOPHEN TAB 650MG DOSE (2X325MG) PO PRN (14:15)
[2020-07-17] MEDS ORDERED: MAALOX 30 ML SUSP *UDC PO PRN (14:15)
--- OUTSIDE RECORDS SUMMARY | 2020-07-17 14:29 | CCD ---
Author Author [facility] Organization [facility] Address Unknown Phone Unavailable Care Team Providers [facility] Coord[facility] Name Role Phone SEANAlexis PA Unavailable Unavailable [...] Unavailable Lalito MATTHEWS DPM Unavailable Unavailable Lalito AMTTHEWS DPM Unavailable Unavailable Lalito MATTHEWS DPM Unavailable [...] ALTHEA MONTEMAYOR Unavailable Unavailable LUIS E, ALTHEA OMNTEMAYOR Unavailable Unavailable LUIS E, ALTHEA MONTEMAYOR Unavailable [...] T Darien Unavailable + Alberry, D Cheli STORE GROUP MANAGER Unavailable Unavailable Alberry, D Cheli STORE GROUP MANAGER Unavailable Unavailable Alberry, D Cheli STORE GROUP MANAGER Unavailable Unavailable Alberry, D Cheli STORE GROUP MANAGER Unavailable Unavailable Alberry, D Cheli STORE GROUP MANAGER Unavailable Unavailable Alberry, D Cheli STORE GROUP MANAGER Unavailable Unavailable Alberry, D Cheli STORE GROUP MANAGER Unavailable Unavailable Alberry, D Cheli STORE GROUP MANAGER Unavailable Unavailable Alberry, D Cheli STORE GROUP MANAGER Unavailable Unavailable Alberry, D Cheli STORE GROUP MANAGER Unavailable Unavailable Alberry, D Cheli STORE GROUP MANAGER Unavailable Unavailable Alberry, D Cheli STORE GROUP MANAGER Unavailable Unavailable Alberry, D Cheli STORE GROUP MANAGER Unavailable Unavailable Alberry, D Cheli STORE GROUP MANAGER Unavailable Unavailable Alberry, D Cheli STORE GROUP MANAGER Unavailable Unavailable Alberry, D Cheli STORE GROUP MANAGER Unavailable Unavailable Alberry, D Cheli STORE GROUP MANAGER Unavailable Unavailable Alberry, D Cheli STORE GROUP MANAGER Unavailable Unavailable Alberry, D Cheli STORE GROUP MANAGER Unavailable Unavailable Alberry, D Cheli STORE GROUP MANAGER Unavailable Unavailable Alberry, D Cheli STORE GROUP MANAGER Unavailable Unavailable Alberry, D Cheli STORE GROUP MANAGER Unavailable Unavailable Alberry, D Cheli STORE GROUP MANAGER Unavailable Unavailable Alberry, D Cheli STORE GROUP MANAGER Unavailable Unavailable Alberry, D Cheli STORE GROUP MANAGER Unavailable Unavailable Alberry, D Cheli STORE GROUP MANAGER Unavailable Unavailable Alberry, D Cheli STORE GROUP MANAGER Unavailable Unavailable Alberry, D Cheli STORE GROUP MANAGER Unavailable Unavailable Alberry, D Cheli STORE GROUP MANAGER Unavailable Unavailable Alberry, D Cheli STORE GROUP MANAGER Unavailable Unavailable Alberry, D Cheli STORE GROUP MANAGER Unavailable Unavailable Alberry, D Cheli STORE GROUP MANAGER Unavailable Unavailable Alberry, D Cheli STORE GROUP MANAGER Unavailable Unavailable Alberry, D Cheli STORE GROUP MANAGER Unavailable Unavailable Alberry, D Cheli STORE GROUP MANAGER Unavailable Unavailable Alberry, D Cheli STORE GROUP MANAGER Unavailable Unavailable Alberry, D Cheli STORE GROUP MANAGER Unavailable Unavailable Alberry, D Cheli STORE GROUP MANAGER Unavailable Unavailable Alberry, D Cheli STORE GROUP MANAGER Unavailable Unavailable Alberry, D Cheli STORE GROUP MANAGER Unavailable Unavailable Alberry, D Cheli STORE GROUP MANAGER Unavailable Unavailable Alberry, D Cheli STORE GROUP MANAGER Unavailable Unavailable Alberry, D Cheli STORE GROUP MANAGER Unavailable Unavailable Alberry, D Cheli STORE GROUP MANAGER Unavailable Unavailable Alberry, D Cheli STORE GROUP MANAGER Unavailable Unavailable Alberry, D Cheli STORE GROUP MANAGER Unavailable Unavailable Alberry, D Cheli STORE GROUP MANAGER Unavailable Unavailable Alberry, D Cheli STORE GROUP MANAGER Unavailable Unavailable Fish, [facility], PA-C Unavailable Unavailabl e Fish, [facility], PA-C Unavailable Unavailabl e Fish, [facility], PA-C Unavailable Unavailabl e Fish, [facility], PA-C Unavailable Unavailabl e Fish, [facility], PA-C Unavailable Unavailabl e Fish, [facility], PA-C Unavailable Unavailabl e Fish, [facility], PA-C Unavailable Unavailabl e Fish, [facility], PA-C Unavailable Unavailabl e Fish, [facility], PA-C Unavailable Unavailabl e Fish, [facility], PA-C Unavailable Unavailabl e Fish, [facility], PA-C Unavailable Unavailabl e Fish, [facility], PA-C Unavailable Unavailabl e Fish, [facility], PA-C Unavailable Unavailabl e Fish, [facility], PA-C Unavailable Unavailabl e Fish, [facility], PA-C Unavailable Unavailabl e Fish, [facility], PA-C Unavailable Unavailabl e Fish, [facility], PA-C Unavailable Unavailabl e Fish, [facility], PA-C Unavailable Unavailabl e Fish, [facility], PA-C Unavailable Unavailabl e Fish, [facility], PA-C Unavailable Unavailabl e Fish, [facility], PA-C Unavailable Unavailabl e Fish, [facility], PA-C Unavailable Unavailabl e Fish, [facility], PA-C Unavailable Unavailabl e Fish, [facility], PA-C Unavailable Unavailabl e Fish, [facility], PA-C Unavailable Unavailabl e Fish, [facility], PA-C Unavailable Unavailabl e Fish, [facility], PA-C Unavailable Unavailabl e Fish, [facility], PA-C Unavailable Unavailabl e Fish, [facility], PA-C Unavailable Unavailabl e Fish, [facility], PA-C Unavailable Unavailabl e Fish, [facility], PA-C Unavailable Unavailabl e Fish, [facility], PA-C Unavailable Unavailabl e Fish, [facility], PA-C Unavailable Unavailabl e Josh RIVERSHEN Unavailable Unavailable Enriquez, Maria Elena STORE GROUP MANAGER Unavailable Unavailable Enriquez, Maria Elena STORE GROUP MANAGER Unavailable Unavailable Enriquez, Maria Elena STORE GROUP MANAGER Unavailable Unavailable Enriquez, Maria Elena STORE GROUP MANAGER Unavailable Unavailable Enriquez, Maria Elena STORE GROUP MANAGER Unavailable Unavailable Enriquez, Maria Elena STORE GROUP MANAGER Unavailable Unavailable Enriquez, Maria Elena STORE GROUP MANAGER Unavailable Unavailable Enriquez, Maria Elena STORE GROUP MANAGER Unavailable Unavailable Enriquez, Maria Elena STORE GROUP MANAGER Unavailable Unavailable Enriquez, Maria Elena STORE GROUP MANAGER Unavailable Unavailable Enriquez, Maria Elena STORE GROUP MANAGER Unavailable Unavailable Enriquez, Maria Elena STORE GROUP MANAGER Unavailable Unavailable Enriquez, Maria Elena STORE GROUP MANAGER Unavailable Unavailable Enriquez, Maria Elena STORE GROUP MANAGER Unavailable Unavailable Enriquez, Maria Elena STORE GROUP MANAGER Unavailable Unavailable Enriquez, Maria Elena STORE GROUP MANAGER Unavailable Unavailable Enriquez, Maria Elena STORE GROUP MANAGER Unavailable Unavailable Enriquez, Maria Elena STORE GROUP MANAGER Unavailable Unavailable Enriquez, Maria Elena STORE GROUP MANAGER Unavailable Unavailable Enriquez, Maria Elena STORE GROUP MANAGER Unavailable Unavailable Enriquez, Maria Elena STORE GROUP MANAGER Unavailable Unavailable Enriquez, Maria Elena STORE GROUP MANAGER Unavailable Unavailable Enriquez, Maria Elena STORE GROUP MANAGER Unavailable Unavailable Enriquez, Maria Elena STORE GROUP MANAGER Unavailable Unavailable Enriquez, Maria Elena STORE GROUP MANAGER Unavailable Unavailable Enriquez, Maria Elena STORE GROUP MANAGER Unavailable Unavailable Enriquez, Maria Elena STORE GROUP MANAGER Unavailable Unavailable Enriquez, Maria Elena STORE GROUP MANAGER Unavailable Unavailable Enriquez, Maria Elena STORE GROUP MANAGER Unavailable Unavailable Enriquez, Maria Elena STORE GROUP MANAGER Unavailable Unavailable Enriquez, Maria Elena STORE GROUP MANAGER Unavailable Unavailable Enriquez, Maria Elena STORE GROUP MANAGER Unavailable Unavailable Enriquez, Maria Elena STORE GROUP MANAGER Unavailable Unavailable Enriquez, Maria Elena STORE GROUP MANAGER Unavailable Unavailable Enriquez, Maria Elena STORE GROUP MANAGER Unavailable Unavailable Enriquez, Maria Elena STORE GROUP MANAGER Unavailable Unavailable KAYKAY VANEGAS MD Unavailable Unavailable [...] is protected by Article 27-F of the [facility] Public Health law. If you continue you may have access to information: Regarding HIV / AIDS; Provided by facilities licensed or operated by the [facility] Office of Mental Health; or Provided by the [facility] Office for People With Developmental Disabilities. If such information is present, then the following [place] mandated warning applies: This information has [...] law may result in a fine or shelter sentence or both. A general authorization for the release of medical or other information is NOT sufficient authorization for further disc losure. Family History Family Member Name Family Member Gender Family Member Status Date o f Status Description Data Source(s) Unknown Unknown Problem MEDENT ([facility]) Unknown Male Problem MEDENT ([facility]) Encounters Encounter Providers Location Date Indications Data Source(s ) Unknown [address] [facility] [place] [address] 07/08/2020 12:00:00 AM EST eCW1 ([facility]) Office Visit Attender: KAYKAY VANEGAS MD Physical Therapy 09:00:00 AM EST MEDENT ([facility]) Unknown [address] [facility] [place] [address] 06/16/2020 12:00:00 AM EST eCW1 ([facility]) Unknown [address] [facility] [place] [address] 06/10/2020 12:00:00 AM EST eCW1 ([facility]) Office Visit Attender: KAYKAY VANEGAS MD Physical Therapy 09:00:00 AM EST MEDENT ([facility]) Unknown [address] [facility] [place] [address] 05/19/2020 12:00:00 AM EST eCW1 ([facility]) Outpatient Attender: Maria Elena GALLEGOPReferrer: Darien winkler 05/18/2020 12:00:00 PM EST - 05/18/2020 12:00:00 PM EST [facility] Unknown [address] [facility] [place] [address] 05/14/2020 12:00:00 AM EST eCW1 ([facility]) Outpatient Attender: Maria Elena GALLEGOPReferrer: Darien Yennifer friedmani 05/13/2020 10:30:00 AM [facility] Outpatient Attender: ALTHEA KIMBROUGH MD Main office - [facility] 05/04/2020 12:00:00 PM EST MEDENT ([facility]) Unknown [address] [facility] [address] 05/01/2020 12:00:00 AM EST eCW1 ([facility]) Unknown [address] [facility] [address] 04/29/2020 12:00:00 AM EST eCW1 ([facility]) Outpatient Attender: KAYKAY MATTHEWS [facility] Office 04/12 02:00:00 PM EST MEDENT ([facility] Unknown [address] [facility] [address] 04/24/2020 12:00:00 AM EST eCW1 ([facility]) Outpatient Attender: KAYKAY MATTHEWS [facility] 03/14 02:15:00 PM EDT MEDENT ([facility] Unknown [address] [facility] [address] 04/10/2020 12:00:00 AM EDT eCW1 ([facility]) Unknown [address] [facility] [address] 03/30/2020 12:00:00 AM EDT eCW1 ([facility]) Office Visit Attender: KAYKAY VANEGAS MD Physical Therapy 03:15:00 PM EDT MEDENT ([facility]) Unknown [address] [facility] [address] 03/11/2020 12:00:00 AM EDT [facility]CW1 [facility] Office Visit Attender: Birgit CARBALLO PA-C Physical Therapy 02/11/2020 01:15:00 PM EDT MEDENT ([facility]) Unknown [address] [facility] [place] [address] 12/27/2019 12:00:00 AM EDT eCW1 ([facility]) Outpatient [address] [facility] [address] [place] [address] 12/24/2019 12:00:00 AM EDT eCW1 ([facility]) Unknown [address] [facility] [address] [place] [address] 12/24/2019 12:00:00 AM EDT eCW1 ([facility]) Unknown [address] [facility] [address] [place] [address] 11/29/2019 12:00:00 AM EDT eCW1 ([facility]) Unknown [address] [facility] [address] [place] [address] 11/12/2019 12:00:00 AM EDT eCW1 ([facility] [address] [facility] [address] [place] [address] 10/30/2019 12:00:00 AM EDT eCW1 ([facility]) [facility] [address] [facility] [address] [place] [address] 10/23/2019 12:00:00 AM EDT eCW1 ([facility]) [facility] [address] [facility] [address] [place] [address] 10/14/2019 12:00:00 AM EDT eCW1 ([facility]) [facility] [address] [facility] [place] [address] 10/04/2019 12:00:00 AM EDT eCW1 ([facility]) Outpatient Attender: Birgit CARBALLO PA-C Physical Therapy 10/03/2019 09:00:00 AM EDT MEDENT ([facility]) [facility] [address] [place] [address] 09/18/2019 12:00:00 AM EDT eCW1 ([facility]) Outpatient Attender: Birgit CARBALLO PA-C Physical Therapy 09/12/2019 01:15:00 PM EDT MEDENT ([facility]) [address] [place] [address] 09/09/2019 12:00:00 AM EDT [facility]CW1 ([facility] [address] [place] [address] 08/19/2019 12:00:00 AM EDT [facility]CW1 ([facility]) [address] [address] 08/08/2019 12:00:00 AM EST [facility]CW1 [facility] [address] [place] [address] 08/02/2019 12:00:00 AM EST eCW1 ([facility] Emergency Attender: IVETT Alfaroer: Abhijeet Rivers EMERGENCY ROOM-ER 08/01/2019 01:21:00 PM EST - 08/01/2019 03:25:00 PM [facility] Patient discharged. [address] [place] [address] 08/01/2019 12:00:00 AM EST [facility]CW1 ([facility]) [address] [place] [address] 08/01/2019 12:00:00 AM EST eCW1 ([facility]) [address] [place] [address] 06/25/2019 12:00:00 AM EST eCW1 ([facility]) [address] [place] [address] 06/24/2019 12:00:00 AM EST eCW1 ([facility]) Outpatient Attender: Darien Odom ttender: DARIEN RIVERSReferrer: Darien Rivers 05/16/2019 12:30:00 PM [facility] Outpatient Attender: Darien Odom ttender: DARIEN RIVERSReferrer: Cheli GALLEGOP 05/08/2019 12:00:00 PM EST - 05/08/2019 12:00:00 PM [facility] Medications Medication Brand Name Start Date Product [...] Oxycodone-Acetaminophen 07/01/2020 12:00:00 AM EST completed MEDENT ([facility] Escitalopram 20 MG Oral [...] 05/29/2020 12:00:00 AM EST ORAL active MEDENT ([facility]) 5-325 mg 05/22/2020 12:00:00 [...] 12:00:00 AM EST ORAL active MEDENT ([facility] ) pantoprazole 40 MG Delayed Release Oral [...] 04/10/2020 12:00:00 AM EDT completed MED[facility] ([facility] Naproxen 500 MG Oral Tablet Naproxen 04/10/2020 12:00:00 AM EDT active MEDENT ([facility] Morphine Sulfate 15 MG Extended Release Oral Tablet [MS Cont in] MS Contin 04/08/2020 12:00:00 AM EDT ORAL completed MEDENT ([facility]) Acetaminophen 325 MG / Oxycodone Hydrochloride 5 MG Or al Tablet [Percocet] Percocet 04/08/2020 12:00:00 AM EDT ORAL completed MEDENT ([facility]) 50 mg 03/31/2020 12:00:00 [...] E DT active Ibuprofen 600 MG eCW1 ([facility]) Ibuprofen 600 MG Oral Tablet Ibuprofen 600 MG 12/24/2019 12:00:00 AM E DT active Ibuprofen 600 MG eCW1 ([facility]) Ibuprofen 600 MG Oral Tablet Ibuprofen 600 MG 12/24/2019 12:00:00 AM E DT active Ibuprofen 600 MG eCW1 ([facility]) Ibuprofen 600 MG Oral Tablet Ibuprofen 600 MG 12/24/2019 12:00:00 AM E DT active Ibuprofen 600 MG eCW1 ([facility]) Ibuprofen 600 MG Oral Tablet Ibuprofen 600 MG 12/24/2019 12:00:00 AM E DT active Ibuprofen 600 MG eCW1 ([facility]) Ibuprofen 600 MG Oral Tablet Ibuprofen 600 MG 12/24/2019 12:00:00 AM E DT active Ibuprofen 600 MG eCW1 ([facility]) Ibuprofen 600 MG Oral Tablet Ibuprofen 600 MG 12/24/2019 12:00:00 AM E DT active Ibuprofen 600 MG eCW1 ([facility]) Ibuprofen 600 MG Oral Tablet Ibuprofen 600 MG 12/24/2019 12:00:00 AM E DT active Ibuprofen 600 MG eCW1 ([facility]) Ibuprofen 600 MG Oral Tablet Ibuprofen 600 MG 12/24/2019 12:00:00 AM E DT active Ibuprofen 600 MG eCW1 ([facility]) Ibuprofen 600 MG Oral Tablet Ibuprofen 600 MG 12/24/2019 12:00:00 AM E DT active Ibuprofen 600 MG eCW1 ([facility]) Ibuprofen 600 MG Oral Tablet Ibuprofen 600 MG 12/24/2019 12:00:00 AM E DT active Ibuprofen 600 MG eCW1 ([facility]) Ibuprofen 600 MG Oral Tablet Ibuprofen 600 MG 12/24/2019 12:00:00 AM E DT active Ibuprofen 600 MG eCW1 ([facility]) 600 mg 12/24/2019 12:00:00 AM EDT tablet [...] E DT active Ibuprofen 600 MG eCW1 ([facility]) Ibuprofen 600 MG Oral Tablet Ibuprofen 600 MG 12/24/2019 12:00:00 AM E DT active Ibuprofen 600 MG eCW1 ([facility]) 50 mg 12/11/2019 12:00:00 AM EDT tablet [...] WI TH FOOD AND WATER SOLD: 12/09/2019 [facility] lubiprostone 0.024 MG Oral Capsule [Amitiza] Amitiza 24 MCG Amitiza 24 MCG 11/29/2019 12:00:00 AM EDT active Amitiza 24 MCG eCW1 (Replaced By [facility]) lubiprostone 0.024 MG Oral Capsule [Amitiza] Amitiza 24 MCG Amitiza 24 MCG 11/29/2019 12:00:00 AM EDT active Amitiza 24 MCG eCW1 (Replaced By [facility]) lubiprostone 0.024 MG Oral Capsule [Amitiza] Amitiza 24 MCG Amitiza 24 MCG 11/29/2019 12:00:00 AM EDT active Amitiza 24 MCG eCW1 (Replaced By [facility]) lubiprostone 0.024 MG Oral Capsule [Amitiza] Amitiza 24 MCG Amitiza 24 MCG 11/29/2019 12:00:00 AM EDT active Amitiza 24 MCG eCW1 (Replaced By [facility]) lubiprostone 0.024 MG Oral Capsule [Amitiza] Amitiza 24 MCG Amitiza 24 MCG 11/29/2019 12:00:00 AM EDT active Amitiza 24 MCG eCW1 (Replaced By [facility]) lubiprostone 0.024 MG Oral Capsule [Amitiza] Amitiza 24 MCG Amitiza 24 MCG 11/29/2019 12:00:00 AM EDT active Amitiza 24 MCG eCW1 (Replaced By [facility]) lubiprostone 0.024 MG Oral Capsule [Amitiza] Amitiza 24 MCG Amitiza 24 MCG 11/29/2019 12:00:00 AM EDT active Amitiza 24 MCG eCW1 (Replaced By [facility]) lubiprostone 0.024 MG Oral Capsule [Amitiza] Amitiza 24 MCG Amitiza 24 MCG 11/29/2019 12:00:00 AM EDT active Amitiza 24 MCG eCW1 (Replaced By [facility]) lubiprostone 0.024 MG Oral Capsule [Amitiza] Amitiza 24 MCG Amitiza 24 MCG 11/29/2019 12:00:00 AM EDT active Amitiza 24 MCG eCW1 (Replaced By [facility]) lubiprostone 0.024 MG Oral Capsule [Amitiza] Amitiza 24 MCG Amitiza 24 MCG 11/29/2019 12:00:00 AM EDT active Amitiza 24 MCG eCW1 (Replaced By [facility]) lubiprostone 0.024 MG Oral Capsule [Amitiza] Amitiza 24 MCG Amitiza 24 MCG 11/29/2019 12:00:00 AM EDT active Amitiza 24 MCG eCW1 (Replaced By [facility]) lubiprostone 0.024 MG Oral Capsule [Amitiza] Amitiza 24 MCG Amitiza 24 MCG 11/29/2019 12:00:00 AM EDT active Amitiza 24 MCG eCW1 (Replaced By [facility]) lubiprostone 0.024 MG Oral Capsule [Amitiza] Amitiza 24 MCG Amitiza 24 MCG 11/29/2019 12:00:00 AM EDT active Amitiza 24 MCG eCW1 (Replaced By [facility]) lubiprostone 0.024 MG Oral Capsule [Amitiza] Amitiza 24 MCG Amitiza 24 MCG 11/29/2019 12:00:00 AM EDT active Amitiza 24 MCG eCW1 (Replaced By [facility]) lubiprostone 0.024 MG Oral Capsule [Amitiza] Amitiza 24 MCG Amitiza 24 MCG 11/29/2019 12:00:00 AM EDT active Amitiza 24 MCG eCW1 (Replaced By [facility]) 50 mg 11/13/2019 12:00:00 AM EDT tablet [...] s Nystatin 100 UNT/MG Topical Powder Nystatin 861822 UNI T/GM Nystatin 348011 UNIT/GM 06/24/2019 12:00:00 AM EST active 1 application eCW1 (Replaced By [facility]) 50 mg 05/06/2019 12:00:00 AM EST tablet [...] type / Coverage type Policy ID Covered green party ID Covered green party's relationship to estevez Policy Estevez Plan Information SVETLANA [id number] SP [id number] SELF PAY ONLY [id number] SP [id number] [facility] MEDICAID [id number] S [id number] MEDICAID [id number] S [id number] [facility] MED[facility] [id number] S [id number] [facility] [id number] S [id number] MEDICAID [id number] SP [id number] [facility] [id number] SP [id number] [facility] Medicaid Commercial [id number] Self [id number] BC/BS Family Health Plus Medigap Part B [id number] Self [id number] Gold Commercial [id number] Self [id number] ANSI-Not a Secondary Insurance [id number] [facility] HEALTH CARE O [id number] S [id number] ANSI-Not a Secondary Insurance [id number] ANSI-Not a Secondary Insurance [id number] [facility] [id number] SP [id number] ANSI-Not a Secondary Insurance [id number] [facility] Medicaid Commercial [id number] Self [id number] MVP Medicaid Commercial [id number] Self [id number] BC/BS Family Health Plus Medigap Part B [id number] Self [id number] MVP Gold Commercial [id number] Self [id number] BC/BS Family Health Plus Medigap Part B [id number] Self [id number] MVP Gold Commercial [id number] Self [id number] BC/BS Family Health Plus Medigap Part B [id number] Self [id number] MVP Gold Commercial [id number] Self [id number] MVP MCDHMO [id number] SP [id number] BC/BS Family Health Plus Medigap Part B [id number] Self [id number] MVP Gold Commercial [id number] Self [id number] UNHC COMMUNITY PLAN MCDHMO [id number] SP [id number] [facility]) O [id number] S [id number] UNHC COMMUNITY PLAN MCDHMO [id number] SP [id number] [facility] MEDICAID [place] HMO [id number] S [id number] [facility] [id number] SP [id number] MEDICAID [id number] SP [id number] HMO BLUE [id number] SP [id number] BLUE CROSS GRAY PLAN [id number] SP [id number] [facility] [id number] SP [id number] BLUE CHOICE OPTION O [id number] S [id number] MEDICAID W [id number] S [id number] BLUE CHOICE OPTION O [id number] S [id number] Problems, Conditions, and Diagnoses Code Display Name Description Problem Type Effective Dates Data Source(s) 23313032 Calcaneal spur Calcaneal spur Problem 04/13/2020 12:00: 00 AM EST MEDENT ([facility] [id number] Plantar fascial fibromatosis Plantar fascial fibromato sis Problem 04/13/2020 12:00:00 AM EST [facility] ([facility] E78.5 Dyslipidemia Dyslipidemia Problem 12/24/2019 12:00:00 A M EDT eCW1 (Replaced By [facility]) N60.02 Solitary cyst of left breast SOLITARY CYST OF LEFT LIDIA AST Diagnosis 05/18/2020 12:00:00 PM [facility] N60.01 Solitary cyst of right breast SOLITARY CYST OF RIGHT B REAST Diagnosis 05/18/2020 12:00:00 PM [facility] R92.8 Other abnormal and inconclusive findings on diagnostic imaging of breast OTH ABN AND INCONCLUSIVE FINDINGS ON DX IMAGING OF BREAST Diagnosis 05/18/2020 12:00:00 PM [facility] Z12.31 Encounter for screening mammogram for ma lignant neoplasm of breast ENCNTR SCREEN MAMMOGRAM FOR MALIGNANT NEOPLASM OF BREAST Diagnosis 07/2019 10:30:00 AM [facility] J01.00 Acute maxillary sinusitis, unspecified A CUTE MAXILLARY SINUSITIS, UNSPECIFIED Diagnosis 08/01/2019 01:21:00 [facility] Unspecified bacterial pneumonia UNSPECIFIED BACTERIAL PNEUMONIA Diagnosis 08/01/2019 01:21:00 PM [facility] R09.3 Abnormal sputum ABNORMAL SPUTUM Diagnosis 08/01/2019 01:2 1:00 PM [facility] Surgeries/Procedures Procedure Description Date Indications Data Source(s) APPLICATION MODALITY 1/> AREAS HOT/COLD PACKS 07/16/19 21 12:00:00 AM EST [facility] ([facility]) THERAPEUTIC PX 1/> AREAS EACH 15 MIN EXERCISES 021 12:00:00 AM EST [facility] ([facility] ) THERAPEUTIC PX 1/> AREAS EACH 15 MIN EXERCISES 021 12:00:00 AM EST [facility] ([facility] ) APPLICATION MODALITY 1/> AREAS HOT/COLD PACKS 07/06/19 21 12:00:00 AM EST [facility] ([facility] ) THERAPEUTIC PX 1/> AREAS EACH 15 MIN EXERCISES 021 12:00:00 AM EST [facility] ([facility] ) APPLICATION MODALITY 1/> AREAS HOT/COLD PACKS 06/17/19 21 12:00:00 AM EST [facility] ([facility] ) THERAPEUTIC PX 1/> AREAS EACH 15 MIN EXERCISES 021 12:00:00 AM EST [facility] ([facility] ) APPLICATION MODALITY 1/> AREAS HOT/COLD PACKS 06/15/19 21 12:00:00 AM EST [facility] ([facility] ) THERAPEUTIC PX 1/> AREAS EACH 15 MIN EXERCISES 021 12:00:00 AM EST [facility] ([facility]) Physical Therapy Eval - Low Complexity 06/02/2020 12:0 0:00 AM EST [facility] ([facility] ) SHOULDER SCOPE BONE SHAVING 05/20/2020 12:00:00 AM EST [facility] ([facility]) ARTHROSCOPY SHOULDER ROTATOR CUFF REPAIR 05/20/2020 12 :00:00 AM EST [facility] ([facility]) Magnetic Resonance Angiogtaphy Head W/O Contrast Material(S) 05/18/2020 12:00:00 AM EST [facility] ([facility]) Magnetic Resonance Angiogtaphy Head W/O Contrast Material(S) 05/18/2020 12:00:00 AM EST [facility] ([facility]) Magnetic Resonance Angiography Neck W/O Contrast Materials 05/18/2020 12:00:00 AM EST [facility] ([facility]) Magnetic Resonance Angiography Neck W/O Contrast Materials 05/18/2020 12:00:00 AM EST [facility] ([facility]) MRI BRAIN BRAIN STEM W/O CONTRAST MATERIAL 05/18/2020 12:00:00 AM EST [facility] ([facility] ) MRI BRAIN BRAIN STEM W/O CONTRAST MATERIAL 05/18/2020 12:00:00 AM EST [facility] ([facility] ) Needle electromyography, each extremity, with related paraspinal areas, when performed, done with nerve conduction, amplitude and latency/velocity study; complete, five or more muscles studied, innervated by three or more nerves or four or more spinal levels (list separately in addition to the code for primary procedure). 05/13/2020 12:00:00 AM EST MED[facility] T ([facility], ) Needle electromyography, each extremity, with related paraspinal areas, when performed, done with nerve conduction, amplitude and latency/velocity study; complete, five or more muscles studied, innervated by three or more nerves or four or more spinal levels (list separately in addition to the code for primary procedure). 05/13/2020 12:00:00 AM EST MEDEN T ([facility], ) [address] Nerve conduction studies 13 or more studies NEW 201205/13/2020 12:00:00 AM EST [facility] ([facility] ) TSTG ANS FUNCJ CARDIOVAGAL INNERVAJ PARASYMP 0 12:00:00 AM EST [facility] ([facility] ) TSTG ANS FUNCJ CARDIOVAGAL INNERVAJ PARASYMP 0 12:00:00 AM EST [facility] ([facility] ) TESTING AUTONOMIC NERVOUS SYSTEM FUNCTION 05/13/2020 1 2:00:00 AM EST [facility] ([facility] ) TESTING AUTONOMIC NERVOUS SYSTEM FUNCTION 05/13/2020 1 2:00:00 AM EST [facility] ([facility] ) NON-INVASIVE PHYSIOLOGIC STUDY EXTREMITY 3 LEVLS 05/13 12:00:00 AM EST [facility] ([facility] ) APPLICATION MODALITY 1/> AREAS HOT/COLD PACKS 04/30/20 20 12:00:00 AM EST [facility] ([facility] ) THERAPEUTIC PX 1/> AREAS EACH 15 MIN EXERCISES 12:00:00 AM EST [facility] ([facility] ) Physical Therapy Eval - Low Complexity 04/24/2020 12:0 0:00 AM EST [facility] ([facility]) Strapping Foot Or Ankle 04/10/2020 12:00:00 AM EDT [facility] ([facility] RADEX FOOT COMPLETE MINIMUM 3 VIEWS 04/10/2020 12:00:0 0 AM EDT [facility] ([facility] ARTHROCENTESIS ASPIR&/INJECTION MAJOR JT/BURSA 12:00:00 AM EDT [facility] ([facility] ) RADEX SHOULDER COMPLETE MINIMUM 2 VIEWS 09/12/2019 12: 00:00 AM EDT [facility] ([facility]) Results ID Date Data Source [id number] 06/20/2020 12:00:00 AM EST [facility] Name Value Range Interpretation Code Description Data Ammy rce(s) Supporting Document(s) SARS-CoV-2 (COVID-19) RNA [Presence] in Respiratory specimen by VERA with probe detection Not Detected [facility] This lab was ordered by [facility] and reported by [employer] ID Date Data Source [id number] 05/19/2020 10:12:00 AM [facility] [...] rce(s) Supporting Document(s) ID Date Data Source [id number] 05/19/2020 10:12:00 AM EST [facility] [...] rce(s) Supporting Document(s) ID Date Data Source [id number] 05/18/2020 03:10:00 PM EST [facility] [...] MAMMO 05/18/2020 12:00:00 AM EST eCW1 ( Replaced By [facility]) Name Value Range Interpretation Code Description Data Ammy rce(s) Supporting Document(s) DIAGNOSTIC BILATERAL MAMMO eCW 1 (Replaced By [facility]) ID Date Data Source [id number] 05/15/2020 10:00:00 AM EST [facility] ([facility]) Name Value Range Interpretation Code Description Data Ammy rce(s) Supporting Document(s) Coronavirus 2019 Nasopharygeal Laboratory test result [facility] ([facility]) This nucleic acid amplification test was developed and its performance characteristics determined by [employer]. Nucleic acid amplification tests include PCR and [...] detected) result in this assay. Performed at: [facility], [place] [address] [id number] [employer]: Maeve Mcfadden PhD, Phone: [phone] Not Detected ID Date Data Source [id number] 05/15/2020 10:00:00 AM EST [facility] Name Value Range Interpretation Code Description Data Ammy rce(s) Supporting Document(s) SARS coronavirus 2 RNA [facility] This lab was ordered by [facility] and reported by [facility]. ID Date Data Source [id number] 05/13/2020 01:47:00 PM EST [facility] ([facility], ) Name Value Range Interpretation Code Description Data Ammy rce(s) Supporting Document(s) Rheumatoid factor [Units/volume] in Serum or Plasma Laborato ry test result 0.0-13.9 [facility] ([facility], ) Thyrotropin [Units/volume] in Serum or Plasma 2.250 uIU/mL 0.450-4.50 0 [facility] ([facility]) Erythrocyte sedimentation rate by 2H Westergren method 22 mm/hr 0-4 0 [facility] ([facility]) Nuclear Ab [Titer] in Serum by Immunofluorescence Laboratory test res ult [facility] ([facility], ) <content>Negative <1:80</content>
<content>Borderline 1:80</content>
<content>Positive >1:80</content>
<content></content> Calcidiol [Mass/volume] in Serum or Plasma 31.6 ng/mL 30.0-100.0 [facility] ([facility]) Vitamin D deficiency has been defined by the [place] of Medicine and an Endocrine Society practice guideline as a level of serum 25-OH vitamin D less than 20 ng/mL (1,2). The Endocrine Society went on to further define vitamin D insufficiency as a level between 21 and 29 ng/mL (2). 1. IOM ([place] of Medicine). 2010. Di etary reference intakes for calcium and D. [place]: The National Academies Press. 2. Franchesca ROTH, Gavi GILLIAM, Levy ramos VELASCO, et al. Evaluation, treatment, and prevention of vitamin D deficiency: an Endocrine Society clinical practice guideline. JCEM. 2010; 96(7):1911-30. Laboratory test finding (navigational concept) [facility] ID Date Data Source [id number] 05/13/2020 01:47:00 PM EST [facility] ([facility]) Name Value Range Interpretation Code Description Data Ammy rce(s) Supporting Document(s) Creatinine [Mass/volume] in Serum or Plasma 0.98 mg/dL 0.57-1.00 [facility] ([facility]) Urea nitrogen [Mass/volume] in Serum or Plasma 19 mg/dL 6-24 [facility] ([facility]) Glucose [Mass/volume] in Serum or Plasma 95 mg/dL 65-99 [facility] ([facility]) Urea nitrogen/Creatinine [Mass Ratio] in Serum or Plasma 19 9 -23 [facility] ([facility]) eGFR If Africn Am 74 mL/min/1.73 [facility] ([facility]) eGFR If NonAfricn Am 64 mL/min/1.73 [facility] NT ([facility]) Sodium [Moles/volume] in Serum or Plasma 142 mmol/L 134-144 [facility] ([facility]) Chloride [Moles/volume] in Serum or Plasma 104 mmol/L 96-106 [facility] ([facility]) Potassium [Moles/volume] in Serum or Plasma 5.1 mmol/L 3.5-5.2 [facility] ([facility]) Calcium [Mass/volume] in Serum or Plasma 9.7 mg/dL 8.7-10.2 [facility] ([facility]) Protein [Mass/volume] in Serum or Plasma 6.7 g/dL 6.0-8.5 [facility] ([facility]) Carbon dioxide, total [Moles/volume] in Serum or Plasma 26 mmol/L 20 -29 [facility] ([facility]) Globulin [Mass/volume] in Serum by calculation 2.3 g/dL 1.5-4.5 [facility] ([facility]) Albumin/Globulin [Mass Ratio] in Serum or Plasma 1.9 1.2-2.2 [facility] ([facility]) Albumin [Mass/volume] in Serum or Plasma 4.4 g/dL 3.8-4.9 [facility] ([facility]) Bilirubin.total [Mass/volume] in Serum or Plasma Laboratory test result 0.0-1.2 [facility] Alkaline phosphatase [Enzymatic activity/volume] in Serum or Plasma 85 IU/L 39-117 [facility] Aspartate aminotransferase [Enzymatic activity/volume] in Serum or Plasma 24 IU/L 0-40 [facility] Alanine aminotransferase [Enzymatic activity/volume] in Seru m or Plasma 27 IU/L 0-32 [facility] ID Date Data Source [id number] 05/13/2020 01:47:00 PM EST [facility] Name Value Range Interpretation Code Description Data Ammy rce(s) Supporting Document(s) Leukocytes [#/volume] in Blood by Automated count 10.4 x10E3/uL 3.4-1 0.8 [facility] Hematocrit [Volume Fraction] of Blood by Automated count 43.8 % 3 4.0-46.6 [facility] Hemoglobin [Mass/volume] in Blood 14.3 g/dL 11.1-15.9 [facility] ([facility]) Erythrocytes [#/volume] in Blood by Automated count 5.12 x10E6/uL 3.7 7-5.28 [facility] Erythrocyte mean corpuscular hemoglobin [Entitic mass] by Automated count 27.9 pg 26.6-33.0 [facility] Erythrocyte mean corpuscular volume [Entitic volume] by Auto mated count 86 fL 79-97 [facility] Erythrocyte mean corpuscular hemoglobin concentration [Mass/volume] by Automated count 32.6 g/dL 31.5-35.7 [facility] Erythrocyte distribution width [Ratio] by Automated count 13.5 % 11.7-15.4 [facility] Platelets [#/volume] in Blood by Automated count 354 x10E3/uL 150-450 [facility] Neutrophils/100 leukocytes in Blood by Automated count 59 % [facility] Monocytes/100 leukocytes in Blood by Automated count 7 % [facility] Eosinophils/100 leukocytes in Blood by Automated count 1 % [facility] ([facility]) Lymphocytes/100 leukocytes in Blood by Automated count 31 % [facility] ([facility]) Neutrophils [#/volume] in Blood by Automated count 6.2 x10E3/uL 1.4-7 .0 [facility] ([facility]) Basophils/100 leukocytes in Blood by Automated count 1 % [facility] ([facility]) Immature cells [#/volume] in Blood Laboratory test result [facility] ([facility]) Monocytes [#/volume] in Blood 0.8 x10E3/uL 0.1-0.9 [facility] ([facility]) Lymphocytes [#/volume] in Blood 3.2 x10E3/uL 0.7-3.1 [facility] ([facility]) Immature granulocytes/100 leukocytes in Blood by Automated count 1 % [facility] ([facility]) Basophils [#/volume] in Blood by Automated count 0.1 x10E3/uL 0.0-0.2 [facility] ([facility]) Eosinophils [#/volume] in Blood by Automated count 0.1 x10E3/uL 0.0-0 .4 [facility] ([facility]) Immature granulocytes [#/volume] in Blood by Automated count 0.1 x10E3/uL 0.0-0.1 [facility] ([facility]) Morphology [Interpretation] in Blood Narrative Laboratory test result [facility] ([facility]) Nucleated erythrocytes/100 leukocytes [Ratio] in Blood by Automated count Laboratory test result [facility] ([facility]) ID Date Data Source [id number] 05/13/2020 01:27:00 PM EST [facility] [...] analyzed through the latest version of the [facility] computer aid eddiagnosis system. The patient states [...] rce(s) Supporting Document(s) ID Date Data Source [id number] 03/02/2020 12:00:00 AM EDT [facility] Name Value Range Interpretation Code Description Data Ammy rce(s) Supporting Document(s) SARS coronavirus 2 RNA [facility] This lab was ordered by [employer] and rep orted by [facility]. ID Date Data Source [id number] 08/01/2019 06:27:00 PM EST [facility] Patient: MATTHEW CALVIN Observation Report - Physicians/[facility].VisitID: [id number] [place] [address] [phone], [facility] [place] Date/Time: 08/01/2019 12:44 Weight:99.7 kg (S). Height/Length:66 [...] Name Value Range Interpretation Code Description Data [facility](s) Supporting Document(s) ID Date Data Source [id number] 08/01/2019 01:22:00 PM [facility] DATE OF EXAMINATION: 08/01/2019 [...] Name Value Range Interpretation Code Description Data [facility](s) Supporting Document(s) ID Date Data Source [id number] 08/01/2019 01:49:00 PM [facility] TSYSORDER [id number] Name Value Range Interpretation Code Description Data [facility](s) Supporting Document(s) GLUCOSE 92 mg/dL 74-106 [facility] BLOOD UREA NITROGEN 20 mg/dL 7-18 [facility] ital CREATININE 1.1 mg/dL 0.6-1.0 H [facility] SODIUM 141 mmol/L 136-145 [facility] POTASSIUM 3.6 mmol/L 3.5-5.1 [facility] CHLORIDE 103 mmol/L 98-107 [facility] CO2 27 mmol/L 21-32 [facility] CALCIUM 9.4 mg/dL 8.5-10.1 [facility] ANION GAP 11.0 mmol/L 5-12 [facility] GLOMERULAR FILTRATION RATE 51 mL/min [facility] GFR IS CALCULATED IN mL/min/1.73m2 YULIANA L FUNCTION: >90MILDLY DECREASED: 60-89MILDY TO MODERATELY DECREASED: 45-59 MODERATELY TO SEVERELY DECREASED: 30-44SEVERELY DECREASED: 15-29RENAL FAILURE: <15 AST 20 U/L 15-37 [facility] ALT 26 U/L 12-78 [facility] ALKALINE PHOSPHATASE 81 U/L 46-116 [facility] TOTAL BILIRUBIN 0.3 mg/dL 0.2-1.0 [facility] TOTAL PROTEIN 8.3 g/dl 6.4-8.2 H [facility] ALBUMIN 4.4 gm/dL 3.4-5.0 [facility] ID Date Data Source [id number] 08/01/2019 01:31:00 PM [facility] TSYSORDER [id number] Name Value Range Interpretation Code Description Data Ammy [facility](s) Supporting Document(s) WHITE BLOOD COUNT 11.5 K/mm3 4.0-10.[address] [facility] adrianne RED BLOOD COUNT 5.20 M/mm3 4.00-5.50 [facility] HEMOGLOBIN 14.7 gm/dL 12.0-16.0 [facility] HEMATOCRIT 45.4 % 36.0-48.8 [facility] MEAN CELL VOLUME 87.3 fl 80-96 [facility] MEAN CORPUSCULAR HEMOGLOBIN 28.3 pg 27.0-31.0 [facility] MEAN CORPUSCULAR HGB CONC 32.4 g/dl 32.0-36.0 [facility] RED CELL DISTRIBUTION WIDTH 13.5 % 10.0-14.5 [facility] PLATELET COUNT 350 K/mm3 172-450 [facility] MEAN PLATELET VOLUME 9.3 fl 9.0-13.0 [facility] pital GRAN % 58.3 % 50-80.0 [facility] IG% 0.7 % 0.0-0.2 [facility] LYMPH % 30.0 % 25.0-50.0 [facility] MONO % 9.1 % 2.0-10.0 [facility] EOS % 1.5 % 0-5.0 [facility] BASO % 0.4 % 0.0-2.0 [facility] GRAN # 6.7 K/mm3 2.0-8.00 [facility] IG# 0.1 K/mm3 0.0-0.2 [facility] LYMPH # 3.4 K/mm3 1.0-5.0 [facility] MONO # 1.0 K/mm3 0.10-1.20 [facility] EOS # 0.2 K/mm3 0.0-0.5 [facility] BASO # 0.1 K/mm3 0.0-0.2 [facility] ID Date Data Source [id number] 08/01/2019 01:31:00 PM EST [facility]SYS[facility] [id number] Name Value Range Interpretation Code Description Data Ammy rce(s) Supporting Document(s) INFLUENZA A NEGATIVE NEGATIVE [facility] INFLUENZA B NEGATIVE NEGATIVE [facility] This is a rapid molecular in [...] EST Former Smoker completed Former Smoker eCW1 (Replaced By [facility]) Smoking 07/08/2020 12:00:00 AM EST Former Smoker completed Former Smoker eCW1 (Replaced By [facility]) Smoking 12/24/2019 12:00:00 AM EDT Former Smoker completed Former Smoker eCW1 (Replaced By [facility]) Smoking 12/24/2019 12:00:00 AM EDT Former Smoker completed Former Smoker eCW1 (Replaced By [facility]) Smoking 12/24/2019 12:00:00 AM EDT Former Smoker completed Former Smoker eCW1 (Replaced By [facility]) Smoking 12/24/2019 12:00:00 AM EDT Former Smoker completed Former Smoker eCW1 (Replaced By [facility]) Smoking 12/24/2019 12:00:00 AM EDT Former Smoker completed Former Smoker eCW1 (Replaced By [facility]) Smoking 12/24/2019 12:00:00 AM EDT Former Smoker completed Former Smoker eCW1 (Replaced By [facility]) Smoking 12/24/2019 12:00:00 AM EDT Former Smoker completed Former Smoker eCW1 (Replaced By [facility]) Smoking 12/24/2019 12:00:00 AM EDT Former Smoker completed Former Smoker eCW1 (Replaced By [facility]) Smoking 12/24/2019 12:00:00 AM EDT Former Smoker completed Former Smoker eCW1 (Replaced By [facility]) Smoking 12/24/2019 12:00:00 AM EDT Former Smoker completed Former Smoker eCW1 (Replaced By [facility]) Smoking 12/24/2019 12:00:00 AM EDT Former Smoker completed Former Smoker eCW1 (Replaced By [facility]) Smoking 12/24/2019 12:00:00 AM EDT Former Smoker completed Former Smoker eCW1 (Replaced By [facility]) Smoking 08/08/2019 12:00:00 AM EST Former Smoker completed Former Smoker eCW1 (Replaced By [facility]) Smoking 08/08/2019 12:00:00 AM EST Former Smoker completed Former Smoker eCW1 (Replaced By [facility]) Vital Signs ID Date Data Source [id number] Name Value Range Interpretation Code Description Data Source(s) Body mass index (BMI) [Ratio] 35.5 kg/m2 35.5 k g/m2 [facility] ([facility]) Body weight 220.00 [lb_av] 220.00 [lb_av] MED[facility] T ([facility]) Body height 66 [in_i] 66 [in_i] [facility] ([facility]) 5'6" Body temperature 96.8 [degF] 96.8 [degF] [facility] ([facility]) Diastolic blood pressure 81 mm[Hg] 81 [...] blood pressure 86 mm[Hg] 86 mm[Hg] eCW1 (Replaced By [facility]) Systolic blood pressure 127 mm[Hg] 127 mm[Hg] e CW1 (Replaced By [facility]) Body temperature 97.1 [degF] 97.1 [degF] eCW1 ( Replaced By [facility]) Respiratory rate 18 /min 18 /min eCW1 ([facility]) Heart rate 88 /min 88 /min eCW1 ([facility]) Body mass index (BMI) [Ratio] 35.67 kg/m2 35.67 kg/m2 W1 (Replaced By [facility]) Body height 66 [in_i] 66 [in_i] eCW1 ([facility]) Body weight 221 [lb_av] 221 [lb_av] eCW1 ([facility]) Diastolic blood pressure 81 mm[Hg] 81 mm[Hg] eCW1 (Replaced By [facility]) Systolic blood pressure 118 mm[Hg] 118 mm[Hg] e CW1 (Replaced By [facility]) Body temperature [degF] eCW1 ([facility]) Respiratory rate 18 /min 18 /min eCW1 ([facility]) Heart rate 92 /min 92 /min eCW1 ([facility]) Body mass index (BMI) [Ratio] 35.34 kg/m2 35.34 kg/m2 eCW1 (Replaced By [facility]) Body height 66 [in_us] 66 [in_us] eCW1 ([facility]) Body weight Measured 219 [lb_av] 219 [lb_av] eC W1 (Replaced By [facility]) Patient Treatment Plan of Care Planned Activity Planned Date Details Description Data Source (s) Ibuprofen 600 MG Oral Tablet 12/24/2019 12:00:00 AM EDT eCW1 (Replaced By [facility]) Ibuprofen 600 MG Oral Tablet 12/24/2019 12:00:00 AM EDT eCW1 (Replaced By [facility]) Ibuprofen 600 MG Oral Tablet 12/24/2019 12:00:00 AM EDT eCW1 (Replaced By [facility]) Ibuprofen 600 MG Oral Tablet 12/24/2019 12:00:00 AM EDT eCW1 (Replaced By [facility]) Ibuprofen 600 MG Oral Tablet 12/24/2019 12:00:00 AM EDT eCW1 (Replaced By [facility]) Ibuprofen 600 MG Oral Tablet 12/24/2019 12:00:00 AM EDT eCW1 (Replaced By [facility]) Ibuprofen 600 MG Oral Tablet 12/24/2019 12:00:00 AM EDT eCW1 (Replaced By [facility]) Ibuprofen 600 MG Oral Tablet 12/24/2019 12:00:00 AM EDT eCW1 (Replaced By [facility]) Ibuprofen 600 MG Oral Tablet 12/24/2019 12:00:00 AM EDT eCW1 (Replaced By [facility]) Ibuprofen 600 MG Oral Tablet 12/24/2019 12:00:00 AM EDT eCW1 (Replaced By [facility]) Ibuprofen 600 MG Oral Tablet 12/24/2019 12:00:00 AM EDT eCW1 (Replaced By [facility]) Ibuprofen 600 MG Oral Tablet 12/24/2019 12:00:00 AM EDT eCW1 (Replaced By [facility]) lubiprostone 0.024 MG Oral Capsule [Amitiza] 11/29/2019 12:00:00 AM EDT eCW1 (Replaced By [facility]) lubiprostone 0.024 MG Oral Capsule [Amitiza] 11/29/2019 12:00:00 AM EDT eCW1 (Replaced By [facility]) lubiprostone 0.024 MG Oral Capsule [Amitiza] 11/29/2019 12:00:00 AM EDT eCW1 (Replaced By [facility]) lubiprostone 0.024 MG Oral Capsule [Amitiza] 11/29/2019 12:00:00 AM EDT eCW1 (Replaced By [facility]) lubiprostone 0.024 MG Oral Capsule [Amitiza] 11/29/2019 12:00:00 AM EDT eCW1 (Replaced By [facility]) lubiprostone 0.024 MG Oral Capsule [Amitiza] 11/29/2019 12:00:00 AM EDT eCW1 (Replaced By [facility]) lubiprostone 0.024 MG Oral Capsule [Amitiza] 11/29/2019 12:00:00 AM EDT eCW1 (Replaced By [facility]) lubiprostone 0.024 MG Oral Capsule [Amitiza] 11/29/2019 12:00:00 AM EDT eCW1 (Replaced By [facility]) lubiprostone 0.024 MG Oral Capsule [Amitiza] 11/29/2019 12:00:00 AM EDT eCW1 (Replaced By [facility]) lubiprostone 0.024 MG Oral Capsule [Amitiza] 11/29/2019 12:00:00 AM EDT eCW1 (Replaced By [facility]) lubiprostone 0.024 MG Oral Capsule [Amitiza] 11/29/2019 12:00:00 AM EDT eCW1 (Replaced By [facility]) lubiprostone 0.024 MG Oral Capsule [Amitiza] 11/29/2019 12:00:00 AM EDT eCW1 (Replaced By [facility]) lubiprostone 0.024 MG Oral Capsule [Amitiza] 11/29/2019 12:00:00 AM EDT eCW1 (Replaced By [facility]) Nystatin 100 UNT/MG Topical Powder 06/24/2019 12:00:00 AM EST eCW1 (Replaced By [facility])
--- NOTE | 2020-07-17 14:32 | HPEPDOC ---
[facility] Medical History & Physical Date of Admission Jul 17, 2020 Date of Service: Jul 17, 2020 History and Physical CHIEF COMPLAINT: abdominal pain HISTORY OF PRESENT ILLNESS: 51-year-old female with extensive surgical abdominal history, presented with a 2012 hour history of abdominal pain, diffuse, nonradiating. Pain is approximately added tenderness severity, associated with nausea and retching without vomiting. Patient reports having a normal bowel movement this morning and she is currently passing gas. CT of the abdomen showing high-grade small bowel obstruction along with pancreatitis with mild extrahepatic bile duct dilation unchanged from prior CT study in 2017. Patient found to have leukocytosis 20.7, hemoglobin 15.7. Lactic acid 2.8. AST 138. ALT 98. Lipase 8800. PAST MEDICAL HISTORY: LOW BACK PAIN DEGENERATIVE DISC DISEASE BILATERAL CARPAL TUNNEL-ORTHOPEDICS GERD HIATAL HERNIA ELEVATED CHOLESTEROL STRESS INCONTINENCE-UROLOGY ALLERGIC RHINITIS INCISIONAL HERNIA GASTROPARESIS DIVERTICULITIS ROTATOR CUFF TEAR LEFT SHOULDER-SEES ORTHO PAST SURGICAL HISTORY: HERNIA REPAIR - UMBILICAL AGE 9 PANCREATITUS FROM GALLBLADDER SURGERY 1982 ACID REFLUX SURGERY - FOLLOWED BY LACERATED LIVER, AND HOLE IN STOMACH 1996 CARPAL TUNNEL ON RIGHT WRIST 1989 COLONOSCOPY UPPER ENDOSCOPY [facility] 06/16/2014 TUBAL LIGATION 1984 HERNIA REPAIR 04/2017 INJECTION LEFT SHOULDER FOR ROTATOR CUFF TEAR 12/2018 SOCIAL HISTORY: FATHER: , MD MOTHER: , EMPHYSEMA SIBLINGS: ALIVE, 1 SISTER FROM BRAIN CA AND 1 BROTHER DROWNED SON(S): ALIVE DAUGHTER(S): ALIVE FAMILY HISTORY IS POSITIVE FOR HYPERTENSION HEART DISEASE AND CANCER. FAMILY HISTORY: Former smoker Non drinker ALLERGIES: Please see below. REVIEW OF SYSTEMS: 10 point ROS completed, pertinent findings in HPI HOME MEDICATIONS: Please see below. PHYSICAL EXAMINATION: VITAL SIGNS: please see below General: NAD, ill appearing HEENT: PERRLA, EOMI, sclerae clear Neck: supple, normal ROM, no JVD Respiratory: lungs CTAB, no wheeze, no rales, no crackles CVS: RRR, normal S1, S2, no murmurs Abdo: distended, painful to touch diffusely Extremities: no edema, pulses 2+ MSK: no joint deformities, normal ROM Neuro: no focal neuro deficits, moving all 4 extremities, CN2-12 intact. Strength 5/5 in all 4 extremities. No nystagmus. Psych: calm, cooperative, AAO x 3 LABORATORY DATA: See below. IMAGING: CT abdo pelvis w IV contrast (07/17/20): FINDINGS: Preliminary digital hydrotechnical specialist radiograph demonstrates moderate to marked gaseous distention of the stomach and moderate air a distended small bowel loops. There is some air and stool in the distal colon and rectum. There are clips in right upper quadrant of the abdomen. There is mild diffuse fatty infiltration of the liver. The previously noted 3.5 cm low-density area is less conspicuous but still seen, smaller in appearance suggesting focal fatty infiltration. The gallbladder surgically absent. The common bile duct and central intrahepatic ducts are prominent similar to the prior study. CBD measures 14 mm in the head of the pancreas. There is edema within the pancreas and in the peripancreatic soft tissues particularly the pancreatic head consistent with pancreatitis. There is some right pericolic gutter fluid. Air and fluid dilated stomach duodenal C loop, ligament of Treitz and proximal jejunal loops are seen. The distal small bowel is decompressed consistent with fairly high-grade small bowel obstruction. No obstructive pathology is appreciated but there is a a clear transition point in the central abdomen beyond which the small bowel loops are small. There is some stool in the colon. A normal appendix is seen in the right lower quadrant. There is no CT evidence of diverticulitis. No uterine or ovarian lesion is seen. There is a some defer diverticulosis of the sigmoid colon. No CT evidence of diverticulitis. The previously noted ventral hernia has been repaired. No abdominal wall defect is seen. There is no evidence of abscess or free intraperitoneal air. IMPRESSION: Findings consistent with a high-grade mid to proximal small bowel obstruction without a discernible obstructive lesion. There is evidence of pancreatitis with peripancreatic and intrapancreatic edema. There is mild extrahepatic bile duct dilation which is unchanged from the February 09, [address] study[address] MICROBIOLOGY: Please see below. ASSESSMENT: 51-year-old female with extensive abdominal surgical history. Presented with about transient pancreatitis. No history of alcohol abuse. We'll order MRCP for possible gallstone pancreatitis. PLAN: Small bowel obstruction: - abdominal pain, passing stool, gas - CT showing High grade SBO without mass - surgical consult, Dr. Xie - NGT in place - NPO - pain control morphine IV - plain film in AM Pancreatitis - lipase 8800 - CT showing peripancreatitic edema, chronic CBD dilation - will obtain MRCP - presently NPO due to SBO HLD - c/w statin once PO ok Depression - take escitalopram, nortriptyline Seizure disorder? - zonisamide Overactive bladder - takes trospium at home GI ppx - PPI IV Vital Signs Vital Signs Date Time Temp Pulse Resp B/P (MAP) Pulse Ox O2 Delivery O2 Flow Rate FiO2 07/17/20 12:24 97.0 102 18 130/66 (87) 97 Room Air Laboratory Data Labs 24H Laboratory Tests 2 07/17/20 08:54: Bedside Glucose (Misc Panel) 144H 07/17/20 09:15: Immature Granulocyte % (Auto) 1.4, Neutrophils (%) (Auto) 85.7H, Lymphocytes (%) (Auto) 5.7L, Monocytes (%) (Auto) 6.8H, Eosinophils (%) (Auto) 0.0, Basophils (%) (Auto) 0.4, Neutrophils # (Auto) 17.7H, Lymphocytes # (Auto) 1.2L, Monocytes # (Auto) 1.4H, Eosinophils # (Auto) 0.0, Basophils # (Auto) 0.1, Nucleated Red Blood Cells % (auto) 0.0, Lactic Acid Level 2.8*H, Total Bilirubin 0.3, Direct Bilirubin < 0.1, Aspartate Amino Transf (AST/SGOT) 138H, Alanine Aminotransferase (ALT/SGPT) 98H, Alkaline Phosphatase 96, Total Creatine Kinase 58, Creatine Kinase MB 2.2, Creatine Kinase MB Relative Index 3.79, Troponin I < 0.02, Total Protein 7.9, Albumin 4.1, Albumin/Globulin Ratio 1.1L, Lipase 8836H 07/17/20 09:16: POC Glucose (Misc Panel) 169H, POC Sodium (Misc Panel) 142, POC Potassium (Misc Panel) 3.6, POC Chloride (Misc Panel) 110H, POC Total CO2 (Misc Panel) 20.0L, POC Blood Urea Nitrogen (Misc Panel 35H, POC Ionized Calcium (Misc Panel) 4.8, POC Creatinine (Misc Panel) 0.9, POC Hematocrit (Misc Panel) 51.0 07/17/20 09:51: Coronavirus (COVID-19)(PCR) NEGATIVE, Influenza Type A (RT-PCR) NEGATIVE, Influenza Type B (RT-PCR) NEGATIVE, Respiratory Syncytial Virus (PCR) NEGATIVE CBC/BMP Laboratory Tests 07/17/20 09:15 Home Medications Scheduled Atorvastatin Calcium (Atorvastatin Calcium) 40 Mg Tab, 40 MG PO DAILY Ergocalciferol (Vitamin D2) (Vitamin D2) 50,000 Units Cap, 50,000 UNITS PO QWEEK SATURDAYS Escitalopram Oxalate (Escitalopram Oxalate) 20 Mg Tablet, 20 MG PO DAILY Fenofibrate (Fenofibrate) 54 Mg Tab, 54 MG PO DAILY Magnesium Oxide (Magnesium Oxide) 400 Mg Tablet, 400 MG PO DAILY Nortriptyline Hcl (Pamelor) 25 Mg Cap, 25 MG PO DAILY Pantoprazole Sodium (Pantoprazole Sodium) 40 Mg Tab, 40 MG PO DAILY Stwnlubgswns-Ncvs-Ctbszlig,Iso (Zosyn 4.5 gm/100 ml Galaxy Bag) 4.5 Gm/100 Ml Froz.piggy, 1 MARAL IV Q6H Trospium Chloride (Trospium Chloride) 20 Mg Tablet, 20 MG PO BID Zonisamide (Zonisamide) 100 Mg Cap, 100 MG PO QHS Scheduled PRN Tramadol HCl (Tramadol HCl) 50 Mg Tab, 50 MG PO Q6H PRN for PAIN Allergies Coded Allergies: TAPE (Verified Allergy, Mild, PLASTIC TAPE = RASH, 06/08/18) A-FIB/CHADSVASC A-FIB History Current/History of A-Fib/PAF?: No Current PO Anticoag Therapy: No LINDSEY ROB MD Jul 17, 2020 14:32
[2020-07-17] MEDS ORDERED: traMADol 50 MG TAB PO PRN (15:15)
[2020-07-17] MEDS ORDERED: PIPERACILLIN/TAZOBACTAM SOD 4.5 GM in D5W MINI-BAG PLUS 50 ML IV SCH (16:30)
[2020-07-17 16:55] VITALS: BP 78/48
[2020-07-17 17:20] VITALS: BP 118/64
--- NOTE | 2020-07-17 17:26 | REP ---
INDICATION: sepsis. COMPARISON: 09/01/2016. TECHNIQUE: SINGLE PORTABLE AP VIEW OF THE CHEST WAS PERFORMED. FINDINGS: No acute infiltrate is seen. The cardiomediastinal silhouette is mildly prominent, likely magnified due to AP supine technique. A nasogastric tube is present. The side port is in the distal esophagus. This should be advanced. Metallic clips are seen in the upper abdomen. IMPRESSION: NO ACUTE PULMONARY DISEASE.Side port of the nasogastric tube in distal esophagus. This should be advanced. <Electronically signed by Gallo Guzman > 07/17/20 [id number]
--- NOTE | 2020-07-17 17:32 | REP ---
INDICATION: ro bowel perf. COMPARISON: CT 07/17/2020 9:36 a.m. TECHNIQUE: AP view of abdomen and pelvis performed. FINDINGS: Several moderately dilated small bowel loops are visualized, as seen on the CT exam earlier today, consistent with small bowel obstruction. Metallic clips are seen in the upper abdomen. IMPRESSION: Several moderately dilated small bowel loops consistent with small bowel obstruction. <Electronically signed by Gallo Guzman > 07/17/20 [id number]
[2020-07-17] MEDS ORDERED: SODIUM CHLORIDE 0.9% 1000ML IV ONE (18:15)
--- NOTE | 2020-07-17 18:25 | DS.PDOC ---
Discharge Summary General Date of Admission Jul 17, 2020 at 14:09 Date of Discharge 07/17/20 Discharge Summary PROCEDURES PERFORMED DURING STAY: [None]. ADMITTING DIAGNOSES: SBO Pancreatitis HLD Depression Seizure disorder Overactive bladder DISCHARGE DIAGNOSES: SBO Severe Pancreatitis HLD Depression Seizure disorder Overactive bladder COMPLICATIONS/CHIEF COMPLAINT: Pancreatitis/Sbo. HISTORY OF PRESENT [id number] female with extensive surgical abdominal history, presented with a 2012 hour history of abdominal pain, diffuse, nonradiating. Pain is approximately added tenderness severity, associated with nausea and retching without vomiting. Patient reports having a normal bowel movement this morning and she is currently passing gas. CT of the abdomen showing high-grade small bowel obstruction along with pancreatitis with mild extrahepatic bile duct dilation unchanged from prior CT study in 2017. Patient found to have leukocytosis 20.7, hemoglobin 15.7. Lactic acid 2.8. AST 138. ALT 98. Lipase 8800. Patient was started on empiric zosyn and received 2L NS bolus. HOSPITAL COURSE: Patient was admitted to telemetry floor with NG tube on suction. Patient was kept NPO due to small bowel obstruction and severe pancreatitis. Patient was started on IV Zosyn. She developed hypotension and altered mental status with worsening abdominal pain and diffuse rigidity. Plain film KUB did not show any free air under the diaphragm. Repeat lactic acid Dr. Xie, general surgeon was called to bedside. Strong suspicion for worsening, severe pancreatitis. Patient's blood pressure was initially unobtainable, but on repeat was 124/80. 2 L normal saline bolus was administered and MAP maintained above 70. A central line was placed in the right femoral vein. After discussion with general surgery decision to use pursue transfer to [facility] for severe pancreatitis as there is no ICU bed availability at [facility]. Discussion with general surgeon and colorectal specialist, Dr. Bustillo took place. Patient is accepted for transfer with recommendation for an additional 2 L of normal saline bolus (total of 6L )to be ordered as well as fluids en route as well as a Perera to be placed. Patient was stable hemodynamically at the time of transfer. Fluids running in Perera in place on discharge. Small bowel obstruction: - abdominal pain, passing stool, gas - CT showing High grade SBO without mass - surgical consult, Dr. Xie - NGT in place - NPO - pain control morphine IV - plain film in AM Pancreatitis - lipase 8800 - CT showing peripancreatitic edema, chronic CBD dilation - will obtain MRCP - presently NPO due to SBO HLD - c/w statin once PO ok Depression - take escitalopram, nortriptyline Seizure disorder - zonisamide Overactive bladder - takes trospium at home DISCHARGE MEDICATIONS: Please see below. ALLERGIES: Please see below. PHYSICAL EXAMINATION ON DISCHARGE: VITAL SIGNS: please see below General: ill appearing HEENT: PERRLA, EOMI, sclerae clear Neck: supple, normal ROM, no JVD Respiratory: lungs CTAB, no wheeze, no rales, no crackles CVS: RRR, normal S1, S2, no murmurs Abdo: distended, painful to touch diffusely, diffuse rigidity Extremities: pulses 2+ MSK: no joint deformities, normal ROM Neuro: no focal neuro deficits, moving all 4 extremities, CN2-12 intact. Strength 5/5 in all 4 extremities. No nystagmus. LABORATORY DATA: Please see below. IMAGING: CT abdo pelvis w IV contrast (07/17/20): FINDINGS: Preliminary digital fiber optic technician radiograph demonstrates moderate to marked gaseous distention of the stomach and moderate air a distended small bowel loops. There is some air and stool in the distal colon and rectum. There are clips in right upper quadrant of the abdomen. There is mild diffuse fatty infiltration of the liver. The previously noted 3.5 cm low-density area is less conspicuous but still seen, smaller in appearance suggesting focal fatty infiltration. The gallbladder surgically absent. The common bile duct and central intrahepatic ducts are prominent similar to the prior study. CBD measures 14 mm in the head of the pancreas. There is edema within the pancreas and in the peripancreatic soft tissues particularly the pancreatic head consistent with pancreatitis. There is some right pericolic gutter fluid. Air and fluid dilated stomach duodenal C loop, ligament of Treitz and proximal jejunal loops are seen. The distal small bowel is decompressed consistent with fairly high-grade small bowel obstruction. No obstructive pathology is appreciated but there is a a clear transition point in the central abdomen beyond which the small bowel loops are small. There is some stool in the colon. A normal appendix is seen in the right lower quadrant. There is no CT evidence of diverticulitis. No uterine or ovarian lesion is seen. There is a some defer diverticulosis of the sigmoid colon. No CT evidence of diverticulitis. The previously noted ventral hernia has been repaired. No abdominal wall defect is seen. There is no evidence of abscess or free intraperitoneal air. IMPRESSION: Findings consistent with a high-grade mid to proximal small bowel obstruction without a discernible obstructive lesion. There is evidence of pancreatitis with peripancreatic and intrapancreatic edema. There is mild extrahepatic bile duct dilation which is unchanged from the February 09, [address] study[address] MICROBIOLOGY: Please see below. PROGNOSIS: fair ACTIVITY: bedrest DIET: NPO DISCHARGE PLAN: transfer to [facility], Surgical ICU for management of severe pancreatitis with small bowel obstruction. DISCHARGE CONDITION: Stable TIME SPENT ON DISCHARGE: 35 minutes Vital Signs/I&Os Vital Signs Date Time Temp Pulse Resp B/P (MAP) Pulse Ox O2 Delivery O2 Flow Rate FiO2 07/17/20 17:20 96.7 116 22 118/64 (82) 100 07/17/20 16:55 Room Air Laboratory Data Labs 24H Laboratory Tests 2 07/17/20 08:54: Bedside Glucose (Misc Panel) 144H 07/17/20 09:15: Immature Granulocyte % (Auto) 1.4, Neutrophils (%) (Auto) 85.7H, Lymphocytes (%) (Auto) 5.7L, Monocytes (%) (Auto) 6.8H, Eosinophils (%) (Auto) 0.0, Basophils (%) (Auto) 0.4, Neutrophils # (Auto) 17.7H, Lymphocytes # (Auto) 1.2L, Monocytes # (Auto) 1.4H, Eosinophils # (Auto) 0.0, Basophils # (Auto) 0.1, Nucleated Red Blood Cells % (auto) 0.0, Lactic Acid Level 2.8*H, Total Bilirubin 0.3, Direct Bilirubin < 0.1, Aspartate Amino Transf (AST/SGOT) 138H, Alanine Aminotransferase (ALT/SGPT) 98H, Alkaline Phosphatase 96, Total Creatine Kinase 58, Creatine Kinase MB 2.2, Creatine Kinase MB Relative Index 3.79, Troponin I < 0.02, Total Protein 7.9, Albumin 4.1, Albumin/Globulin Ratio 1.1L, Lipase 8836H 07/17/20 09:16: POC Glucose (Misc Panel) 169H, POC Sodium (Misc Panel) 142, POC Potassium (Misc Panel) 3.6, POC Chloride (Misc Panel) 110H, POC Total CO2 (Misc Panel) 20.0L, POC Blood Urea Nitrogen (Misc Panel 35H, POC Ionized Calcium (Misc Panel) 4.8, POC Creatinine (Misc Panel) 0.9, POC Hematocrit (Misc Panel) 51.0 07/17/20 09:51: Coronavirus (COVID-19)(PCR) NEGATIVE, Influenza Type A (RT-PCR) NEGATIVE, Influenza Type B (RT-PCR) NEGATIVE, Respiratory Syncytial Virus (PCR) NEGATIVE 07/17/20 16:09: Lactic Acid Followup at 4 Hours 7.6*H 07/17/20 16:50: Bedside Glucose (Misc Panel) 155H CBC/BMP Laboratory Tests 07/17/20 09:15 FSBS Laboratory Tests Test 07/17/20 08:54 07/17/20 16:50 Range/Units Bedside Glucose (Misc Panel) 144 155 70-105 MG/DL Microbiology Microbiology 07/17/20 Blood Culture, Received Pending 07/17/20 Blood Culture, Received Pending Discharge Medications Scheduled Atorvastatin Calcium (Atorvastatin Calcium) 40 Mg Tab, 40 MG PO DAILY, (Reported) Ergocalciferol (Vitamin D2) (Vitamin D2) 50,000 Units Cap, 50,000 UNITS PO QWEEK, (Reported) SATURDAYS Escitalopram Oxalate (Escitalopram Oxalate) 20 Mg Tablet, 20 MG PO DAILY, (Reported) Fenofibrate (Fenofibrate) 54 Mg Tab, 54 MG PO DAILY, (Reported) Magnesium Oxide (Magnesium Oxide) 400 Mg Tablet, 400 MG PO DAILY, (Reported) Nortriptyline Hcl (Pamelor) 25 Mg Cap, 25 MG PO DAILY, (Reported) Pantoprazole Sodium (Pantoprazole Sodium) 40 Mg Tab, 40 MG PO DAILY, (Reported) Trospium Chloride (Trospium Chloride) 20 Mg Tablet, 20 MG PO BID, (Reported) Zonisamide (Zonisamide) 100 Mg Cap, 100 MG PO QHS, (Reported) Scheduled PRN Tramadol HCl (Tramadol HCl) 50 Mg Tab, 50 MG PO Q6H PRN for PAIN, (Reported) Allergies Coded Allergies: TAPE (Verified Allergy, Mild, PLASTIC TAPE = RASH, 06/08/18) LINDSEY ROB MD Jul 17, 2020 18:25
[2020-07-17 18:53] LABS: BASO # 0.1 10^3/uL (0.0-0.2); BASO % 0.3 % (0.0-1.0); HEMATOCRIT 38.4 % (36.0-47.0); LYMPH # 1.4 10^3/uL (1.5-5.0); MEAN CORPUSCULAR HEMOGLOBIN 27.9 pg (27.0-33.0); MEAN CORPUSCULAR HGB CONC 31.5 g/dl (32.0-36.5); MEAN CORPUSCULAR VOLUME 88.5 fl (80.0-96.0); MONO # 2.1 10^3/uL (0.0-0.8); MONO % 9.1 % (0.0-5.0); NEUTROPHILS # 19.4 10^3/uL (1.5-8.5); NEUTROPHILS % 83.1 % (36.0-66.0); PLATELET COUNT, AUTOMATED 320 10^3/uL (150-450); RED BLOOD COUNT 4.34 10^6/uL (4.00-5.40)
[2020-07-17 19:02] LABS: HEMOGLOBIN 12.1 g/dl (12.0-15.5); WHITE BLOOD COUNT 23.3 10^3/uL (4.0-10.0)
[2020-07-17 19:28] LABS: ALBUMIN 3.1 GM/DL (3.2-5.2); BILIRUBIN,TOTAL 0.2 MG/DL (0.2-1.0); CALCIUM LEVEL 7.3 MG/DL (8.5-10.1); CREATININE FOR GFR 1.48 MG/DL (0.55-1.30); GLOMERULAR FILTRATION RATE 38.6 (>51); MAGNESIUM LEVEL 1.8 MG/DL (1.8-2.4); POTASSIUM SERUM 4.3 MEQ/L (3.5-5.1); TOTAL PROTEIN 5.7 GM/DL (6.4-8.2); TROPONIN I 0.02 NG/ML (< 0.10)
[2020-07-17] MEDS: MORPHINE 2 MG/ML 1ML VIAL (J2270) IV PRN ×2 (19:28→20:41)
--- NOTE | 2020-07-17 19:44 | ECGEPIP ---
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
[2020-07-17] MEDS ORDERED: ZONISAMIDE 100 MG CAP (ZONEGRAN) PO SCH (21:00)
[2020-07-17] MEDS ORDERED: DOCUSATE SODIUM 100MG CAPSULE PO SCH (21:00)
[2020-07-17] MEDS ORDERED: ZOSY1SOL6 IV (21:14)
--- NOTE | 2020-07-17 21:15 | CR ---
CONSULTATION DATE: 07/17/2020 REASON FOR CONSULTATION: Abdominal pain. HISTORY OF PRESENT ILLNESS: The patient is a 51-year-old female with multiple abdominal surgeries who presents to the hospital with a couple day history of increasing abdominal pain. She states around 10:00 yesterday morning she has had a sudden increase in abdominal pain in the epigastric area that got persistently worse throughout the day. At first she thought it might have been due to something she ate but when it got worse this morning, she came to the hospital for evaluation. On the CT there are signs of high grade small-bowel obstruction in the mid abdomen along with severe pancreatitis. She had an elevated white count of 20. Lactic acid 2.8 and a lipase of 8,800. Her findings were highly suspicious for likely severe pancreatitis resulting in some inflammation, therefore recommendation was to admit her to the Medicine Service with me on consult. After placement of the NG tube in the Emergency Room, her pain was immediately improved. All of her abdominal pain resolved except for the epigastric pain that was all likely contributed to the pancreatitis. She denies any more nausea or vomiting once the NG was in place. No fevers or chills and no symptoms like this in the past. PAST MEDICAL HISTORY: The patient's past medical history is significant for: 1. Low back pain. 2. Degenerative disk disease. 3. Bilateral carpal tunnel. 4. Gastroesophageal reflux disease. 5. Hiatal hernia. 6. Hyperlipidemia. 7. Stress incontinence. 8. Allergic rhinitis. 9. Incisional hernia. 10. Gastroparesis. 11. Diverticulitis. 12. Rotator cuff tear. PAST SURGICAL HISTORY: The patient's past surgical history is significant for: 1. Umbilical hernia repair. 2. Cholecystectomy. 3. Anti-reflux gastric surgery, followed by a lacerated liver and a hole in her stomach in 1996. 4. Carpal tunnel on the right wrist. 5. Upper and lower endoscopies. 6. Tubal ligation. 7. Ventral hernia repair in 2017. SOCIAL HISTORY: Denies drug, alcohol or tobacco abuse. FAMILY HISTORY: Noncontributory. REVIEW OF SYSTEMS: Pertinent positive and negatives as stated in the HPI. PHYSICAL EXAMINATION: GENERAL APPEARANCE: The patient is awake and alert, oriented x3. VITAL SIGNS: Temperature 97, pulse 102, respirations 18, blood pressure 130/66, pulse oximetry 97% on room air. HEENT: Pupils are equal, round and reactive to light and accommodation. HEART: S1, S2, regular rate and rhythm. LUNGS: Clear to auscultation bilaterally. ABDOMEN: Soft, slight tenderness to palpation epigastric. No rebound, guarding or rigidity. EXTREMITIES: No clubbing, cyanosis, or edema. LABORATORY DATA: White count was 20.7, hemoglobin 15.7, platelets 400, lactic acid 2.8. COVID, influenza negative. IMAGING DATA: CT abdomen and pelvis shows a high grade mid to proximal small-bowel obstruction without obstructive lesion. There is evidence of pancreatitis with peripancreatic and intrapancreatic edema. There is mild extrahepatic bile duct dilation which is unchanged from 2017. ASSESSMENT AND PLAN: The patient is again, a 59-year-old female with severe epigastric pains. Her symptoms are most likely consistent with severe pancreatitis that has resulted in some severe ileus versus a possible small-bowel obstruction preceding this pancreatitis. At this time she is significantly improved with NG tube placement. The NG output is mainly gastric contents. There are no signs of any hemorrhagic fluid or stool or bilious fluid in her NG. Therefore recommendation at this time is to treat this as a severe pancreatitis. We will use the NG tube for decompression in the meantime, start her on IV fluids, antibiotics, keep her n.p.o. and give her some time with medical management to see if this improves on its own. If the obstruction does not improve over the 48-72 hours, then we will possible laparoscopic versus robotic exploratory surgery to evaluate the cause of the obstruction and see if that can be improved as well. This case was discussed in detail with the Primary and he agreed with the plan. ADDENDUM: I was called emergently around 5:00 p.m. this evening to reevaluate this patient. She was transferred upstairs to the Floor from the Emergency Room. Once she reached the Floor, she had sudden onset of diaphoresis, confusion, unresponsiveness, and some hypotension. When I came in to evaluate her, she had already had an EKG done, chest x-ray, abdominal x-ray. She had significant abdominal distention as well that was new from the E.R. Concern for possible perforation, however x-rays revealed dilated loops of bowel but again, no signs of any perforation. We transferred her to the PCU, repeated some labs and placed a central line. The NG tube appears to have come out some, so that was placed back in. She was responding to fluids, did not require any pressor support. However her labs are starting to get worse already and her white count has gone up from 20 to 23.3. Her lactic acid has also gone up from 2.8 to 7.6. Because of this, there is high concern for her developing some necrotizing pancreatitis and with our impending deng effect snowstorm coming within the next couple of hours, and not being able to get her out of here, I recommended we get her transferred out to a higher level of care, prior to her developing a necrotizing infection. The Hospitalist agreed and was able to get her transferred to [place]. The transfer is pending at this time.
[2020-07-18] MEDS ORDERED: oxyBUTYnin 5 MG TAB PO SCH (09:00)
[2020-07-18] MEDS ORDERED: ENOXAPARIN 40MG/0.4ML SYRINGE (J1650 PER 10MG) SC SCH (09:00)
--- NOTE | 2020-07-18 16:38 | RO ---
OPERATIVE NOTE DATE OF OPERATION: 07/17/2020 ATTENDING PHYSICIAN: Dr. Xie PREOPERATIVE DIAGNOSIS: hypotension, sepsis POSTOPERATIVE DIAGNOSIS: same PROCEDURE: Femoral central line placement on the right side. INDICATION: Hypotension, severe sepsis. ULTRASOUND USED: Yes. CONSENT: Consent was obtained from patient prior to the procedure. Indications, risks, and benefits were explained at length. SURGEON: Rogelio Cody DO in conjunction with Gallo Xie DO PROCEDURE SUMMARY: Handwashing per sterile technique was performed prior to the procedure. Time-out was performed. I wore a surgical cap, mask with protective eyewear, sterile gown, and sterile gloves throughout the procedure. The right inguinal region was prepped using chlorhexidine scrub and draped in sterile fashion using a full drape and sterile probe cover employed. The femoral vein was identified with ultrasound. Anesthesia was achieved using 1% lidocaine. Using ultrasound guidance, the introducer needle was inserted into the femoral vein. Venous blood was withdrawn. The syringe was removed, and the guidewire was advanced into the introducer needle. A small incision was made at the skin surface with a scalpel, and the introducer needle was exchanged for a dilator over the guidewire. After appropriate dilatation was obtained, the dilator was exchanged over the wire for a central venous catheter. The wire was removed, and the catheter was sutured in place. A sterile SorbaView shield was placed over the catheter at the insertion site. Patient tolerated the procedure without any hemodynamic compromise. At time of procedure complete, all ports aspirated and flushed properly. Estimated blood loss is 15 mL. MTDD
== END 2020-07-17 20:51 | disposition short-term general hospital (02) | DRG 710 ==
LOC: M ED 08:37 → M ED INP 14:09 → M MSPAV 16:48 → M PCU 17:22
PROVIDERS: ADMIT Family Medicine; ATTEND Family Medicine
PROC: 06HM3DZ Insertion of Intraluminal Device into Right Femoral Vein, Percutaneous Approach (ICD-10-PCS; principal; 2020-07-17)
DX: A41.9 Sepsis, unspecified organism (principal); K85.90 Acute pancreatitis without necrosis or infection, unspecified; K56.609 Unspecified intestinal obstruction, unspecified as to partial versus complete obstruction; G40.909 Epilepsy, unspecified, not intractable, without status epilepticus; F32.9 Major depressive disorder, single episode, unspecified; N32.81 Overactive bladder; Z79.899 Other long term (current) drug therapy; K21.9 Gastro-esophageal reflux disease without esophagitis; K44.9 Diaphragmatic hernia without obstruction or gangrene; E78.5 Hyperlipidemia, unspecified

== ENCOUNTER 2020-07-31 11:18 | Inpatient (IN) | payer OTHER ==
[~2020-07-31 11:18] MED LIST changes: +ESCI10TA16; +ESCI20TA16 PO; +MAGN400T3 PO; +NAPR-885; +ZOSY1SOL6 IV
[2020-07-31 23:27] VITALS: BP 108/41
--- OUTSIDE RECORDS SUMMARY | 2020-07-31 23:32 | CCD ---
Author Author [facility] Organization [facility] Address Unknown Phone Unavailable Care Team Providers Care Telecom Manager Name Role Phone Jami Anna Unavailable PROBLEMS Type Condition ICD9-CM Code [id number]-GP Code Onset Dates Condition S tatus W/U Status Risk SNOMED Code Notes Problem Menopausal and female climacteric states N95.1 Active confirmed 506919647 Problem Allergic rhinitis, unspecified J30.9 Active confir med 90890474 Problem Diverticulitis K57.92 Active confirmed 61956 6006 Problem Low back pain M54.5 Active confirmed 652581 007 Problem Vitamin D deficiency, unspecified E55.9 Active con firmed 34061292 Problem Multiple chronic diseases R69 Active confirmed 2644934400845 Problem Headache R51 Active confirmed 29098525 Problem Gastro-esophageal reflux disease without esophagitis K21.9 Active confirmed 709212991 Problem Other hyperlipidemia E78.4 Active confirmed 53287821 Problem Abnormal mammogram R92.8 Active confirmed 1 46081998 Problem Abnormal immunological finding in serum, unspecified R76.9 Active confirmed 040527580 Problem Dyslipidemia E78.5 Active confirmed 7524069 07 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 Active confirmed 2356 52429 Problem Hypomagnesemia E83.42 Active confirmed 77087 5004 Problem Mixed hyperlipidemia E78.2 Active confirmed 301721419 Problem Chronic depression F32.9 Active confirmed 1 04571568 Problem Vitamin D deficiency E55.9 Active confirmed 51433201 ALLERGIES No Known Allergies ENCOUNTERS from 1960 to 2020-07-17 Encounter Location Date Provider Diagnosis [facility] Breast Care [address] [place] [address] 07 Jun, 2020 [facility] IMMUNIZATIONS Vaccine Route Administration Date Status Influenza [...] Once a day for 30 Not-Taking Nystatin 474741 UNIT/GM 1 application Externally twice daily as neede d Active Drisdol 49786 UNIT 1 capsule Orally weekly Active Atorvastatin [...] Information RESULTS No Results REASON FOR VISIT Referral MEDICAL (GENERAL) HISTORY Type Description Date Medical [...] PLAN OF TREATMENT Next Appt Details Provider Name:Jami Anna, 02-08-14 02:00:00 PM, [address] [place], [address], Provider Name:Maria Elena Enriquez, 2020-07-31 11:00:00 AM, [address] [place] [address], [phone], Insurance Providers Payer Name Payer Address Payer Phone Insured Name Patient Relati onship to Insured Coverage Start Date Coverage End Date [facility] [employer] CLAIMS DEPT [address] [place] [phone] MATTHEW VALADEZ self
--- OUTSIDE RECORDS SUMMARY | 2020-07-31 23:32 | CCD ---
Author Author [facility] Organization [facility] Address Unknown Phone Unavailable Care Team Providers Care Business Support Administrator Name Role Phone Jami Anna Unavailable PROBLEMS Type Condition ICD9-CM Code LCS95-GK Code Onset Dates Condition S tatus W/U Status Risk SNOMED Code Notes Problem Menopausal and female climacteric states N95.1 Active confirmed 519777943 Problem Allergic rhinitis, unspecified J30.9 Active confir med 83264865 Problem Diverticulitis K57.92 Active confirmed 52503 6006 Problem Low back pain M54.5 Active confirmed 798213 007 Problem Vitamin D deficiency, unspecified E55.9 Active con firmed 35111236 Problem Multiple chronic diseases R69 Active confirmed 8654408850522 Problem Headache R51 Active confirmed 95515990 Problem Gastro-esophageal reflux disease without esophagitis K21.9 Active confirmed 821505662 Problem Other hyperlipidemia E78.4 Active confirmed 97498316 Problem Abnormal mammogram R92.8 Active confirmed 1 86418657 Problem Abnormal immunological finding in serum, unspecified R76.9 Active confirmed 450846044 Problem Dyslipidemia E78.5 Active confirmed 8108165 07 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 Active confirmed 2356 59039 Problem Hypomagnesemia E83.42 Active confirmed 41218 5004 Problem Mixed hyperlipidemia E78.2 Active confirmed 991777221 Problem Chronic depression F32.9 Active confirmed 1 65431664 Problem Vitamin D deficiency E55.9 Active confirmed 36972885 ALLERGIES No Known Allergies ENCOUNTERS from 1960 to 2020-07-23 Encounter Location Date Provider Diagnosis [facility] Breast Care [address] [place] [address] 27 Jun, 2020 Jami Wiseka Abnormal ultrasound of breast R92.8 ; Hi story of hormone replacement therapy Z92.29 ; Family history of breast cancer Z80.3 ; Breast pain N64.4 and Status post shoulder surgery Z98.890 IMMUNIZATIONS Vaccine Route Administration Date Status Influenza [...] REASON FOR REFERRAL No Information VITAL SIGNS Weight 224 lbs Jun, Weight-kg 101.6 kg Jun, Height 66 in Jun, BMI 36.15 kg/m2 Jun, Heart Rate 89 /min Jun, Respiratory Rate 18 /min Jun, Temperature 97.6 degrees Fahrenheit Jun, Oximetry 97 Jun, Blood pressure systolic 118 mm Hg Jun, Blood pressure diastolic 74 mm Hg Jun, MEDICATIONS Medication SIG (Take, Route, Frequency, Duration) [...] Once a day for 30 Not-Taking Nystatin 879217 UNIT/GM 1 application Externally twice daily as neede d Active Drisdol 36087 UNIT 1 capsule Orally weekly Active Atorvastatin [...] Information RESULTS No Results REASON FOR VISIT CAT 4 - LEFT BREAST, HAVE IMAGES MEDICAL (GENERAL) HISTORY Type Description Date Medical [...] WRIST 1989 Surgical History colonoscopy upper endoscopy [facility] 015 Surgical History tubal ligation 1983 [...] Notes Treatment Notes Treatm ent Clinical Notes Jun, Abnormal ultrasound of breast (ICD-10 - R92.8) I reviewed the mammograms with Ms. Valadez and explained that There was concern on bilateral increasing densities in her breast oon screening mammogram however diagnostic mammogram showed improvement in those densities. 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 Those images are not available to me at this time as [facility] did not send them along with mammograms. We'll request those images. Radiology report sign BI-RADS 4 category 2 with the left breast ultrasound and tissue sampling was recommended. On my sonographic examination of this area I noted numerous cystic structures at 1:00 4 cm from the nipple and it is very difficult for me to determine which area is the target area determined by the radiology from outside hospital. I will ask our radiology team to do ultrasound-guided biopsy of targeted lesion with clip placement and post biopsy mammogram. I briefly described the procedure to the patient. I also described risk and possible complications of the procedure including bleeding, infection, and injury to surrounding structures (nipple, skin, muscle, lung). I asked patient not to take any blood thinning medication including aspirin, ibuprofen and or Excedrin 5 days before her biopsy. We'll schedule her for Left breast ultrasound-guided biopsy with clip placement and postbiopsy mammogram with the radiology team. All questions were answered. Patient agrees with the plan. Jun, History of hormone replacement therapy (ICD-10 - Z92.29) Patient is not sure what medication was she taken and for how long. Postmenopausal HRT increase his risk of breast cancer Jun, Family history of breast cancer (ICD-10 - Z80.3) Patient participated in our Cancer screening program and she was not found to be at increased risk for cancer base on her family history. She does not qualify for genetic testing or high risk screening with MRI of the breast base on her family history. Jun, Breast pain (ICD-10 - N64.4) Patient reports bilateral lateral breast pain only with pressure. At this time it does not seem to be significant enough and it does not bother her significantly. If this gets worse we can always discuss possible interventions for breast pain management. Jun, Status post shoulder surgery (ICD-10 - Z98.890) Patient is status post recent left shoulder surgery. She is wearing the sling. She cannot elevate her Left hand. Jun, Other Time spent face to face with the patient with over 50 % of time spent counseling the patient : 43 min PLAN OF TREATMENT Treatment Notes Assessment Notes Clinical Notes Abnormal ultrasound of breast I reviewed the mammogram s with Ms. 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 Those images are not available to me at this time as [facility] did not send them along with mammograms. We'll request those images.Radiology report sign BI-RADS 4 category 2 with the left breast ultrasound and tissue sampling was recommended .On my sonographic examination of this area I noted numerous cystic structures at 1:00 4 cm from the nipple and it is very difficult for me to determine which area is the target area determined by the radiology from outside hospital.I will ask our radiology team to do ultrasound-guided biopsy of targeted lesion with clip placement and post biopsy mammogram.I briefly described the procedure to the patient.I also described risk and possible complications of the procedure including bleeding, infection, and injury to surrounding structures (nipple, skin, muscle, lung).I asked patient not to take any blood thinning medication including aspirin, ibuprofen and or Excedrin 5 days before her biopsy.We'll schedule her for Left breast ultrasound-guided biopsy with clip placement and postbiopsy mammogram with the radiology team.All questions were answered. Patient agrees with the plan. History of hormone replacement therapy Patient is not sure what medication was she taken and for how long.Postmenopausal HRT increase his risk of breast cancer Family history of breast cancer Patient participated i n ourCancer screening program and she was not found to be at increased risk forcancer base on her family history. She does not qualify for genetic testing or highrisk screening with MRI of the breast base on her family history. Breast pain Patient reports bilateral la teral breast pain only with pressure. At this time it does not seem to be significant enough and it does not bother her significantly.If this gets worse we can always discuss possible interventions for breast pain management. Status post shoulder surgery Patient is status post re cent left shoulder surgery. She is wearing the sling. She cannot elevate her Left hand. Treatment Notes Test Name Order Date [facility] DIAGNOSTIC UNILATERAL MAMMO (Ultrasound if indica richar) 2020-07-08 [facility] US Guided Breast Biopsy (Clip Placement if Indicat ed) 2020-07-08 Next Appt Details Provider Name:Maria Elena Enriquez, 2020-07-31 11:00:00 AM, Katlyn GREGG, [facility] [place], [id number], Insurance Providers Payer Name Payer Address Payer Phone Insured Name Patient Relati onship to Insured Coverage Start Date Coverage End Date [facility] [employer] CLAIMS DEPT [address] [facility] [phone] MATTHEW VALADEZ self
--- OUTSIDE RECORDS SUMMARY | 2020-07-31 23:32 | CCD ---
Author Author [facility] Organization [facility] Address Unknown Phone Unavailable Care Team Providers Care Teradata Developer Name Role Phone Jami Anna Unavailable PROBLEMS Type Condition ICD9-CM Code IGN83-SI Code Onset Dates Condition S tatus W/U Status Risk SNOMED Code Notes Problem Menopausal and female climacteric states N95.1 Active confirmed 597203596 Problem Allergic rhinitis, unspecified J30.9 Active confir med 73204521 Problem Diverticulitis K57.92 Active confirmed 64565 6006 Problem Low back pain M54.5 Active confirmed 981511 007 Problem Vitamin D deficiency, unspecified E55.9 Active con firmed 52716147 Problem Multiple chronic diseases R69 Active confirmed 5713725901721 Problem Headache R51 Active confirmed 27633979 Problem Gastro-esophageal reflux disease without esophagitis K21.9 Active confirmed 207084966 Problem Other hyperlipidemia E78.4 Active confirmed 19293154 Problem Abnormal mammogram R92.8 Active confirmed 1 19813529 Problem Abnormal immunological finding in serum, unspecified R76.9 Active confirmed 048118722 Problem Dyslipidemia E78.5 Active confirmed 9578875 07 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 Active confirmed 2356 92111 Problem Hypomagnesemia E83.42 Active confirmed 75988 5004 Problem Mixed hyperlipidemia E78.2 Active confirmed 803496139 Problem Chronic depression F32.9 Active confirmed 1 29808464 Problem Vitamin D deficiency E55.9 Active confirmed 99132725 ALLERGIES No Known Allergies ENCOUNTERS from 1960 to 2020-07-22 Encounter Location Date Provider Diagnosis [facility] [address] [place] [id number] 08 Jul, 2020 Jami Wilfrido IMMUNIZATIONS Vaccine Route Administration Date Status Influenza [...] No Drug and Alcohol Question Answer Notes Interpretation: No problems reported Total Score: 0 BMI Care Goal Follow-Up Question Answer Notes [...] Once a day for 30 Not-Taking Nystatin 494174 UNIT/GM 1 application Externally twice daily as neede d Active Drisdol 53220 UNIT 1 capsule Orally weekly Active Atorvastatin [...] Information RESULTS No Results REASON FOR VISIT No Information MEDICAL (GENERAL) HISTORY Type Description Date Medical [...] WRIST 1989 Surgical History colonoscopy upper endoscopy [facility] 015 Surgical History tubal ligation [...] Provider Name:Maria Elena Enriquez, 2020-07-31 11:00:00 AM, [address] [place] [address], [phone], Insurance Providers Payer Name Payer Address Payer Phone Insured Name Patient Relati onship to Insured Coverage Start Date Coverage End Date [facility] [employer] CLAIMS DEPT [address] [place] [phone] MATTHEW VALADEZ self
--- OUTSIDE RECORDS SUMMARY | 2020-07-31 23:34 | CCD ---
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 Name Role Phone SEANAlexis PA Unavailable Unavailable [...] ALTHEA MD Unavailable Unavailable Josh Rivers Unavailable + Josh Rivers Unavailable Grybowski, T Darien Unavailable [...] Unavailable + Grybowski, T Darien Unavailable + Fish, [facility], PA-C Unavailable Unavailabl e Fish, [facility], PA-C Unavailable Unavailabl e Fish, [facility], PA-C Unavailable Unavailabl e Fish, [facility], PA-C Unavailable Unavailabl e Fish, [facility], PA-C Unavailable Unavailabl e Fish, [facility], PA-C Unavailable Unavailabl e Fish, [facility], PA-C Unavailable Unavailabl e Fish, [facility], PA-C Unavailable Unavailabl e Fish, [facility], PA-C Unavailable Unavailabl e Fish, [facility], PA-C Unavailable Unavailabl e Fish, [facility], PA-C Unavailable Unavailabl e Fish, [facility], PA-C Unavailable Unavailabl e Fish, [facility], PA-C Unavailable Unavailabl e Fish, [facility], PA-C Unavailable Unavailabl e Fish, [facility], PA-C Unavailable Unavailabl e Fish, [facility], PA-C Unavailable Unavailabl e Fish, [facility], PA-C Unavailable Unavailabl e Fish, [facility], PA-C Unavailable Unavailabl e Fish, [facility], PA-C Unavailable Unavailabl e Fish, [facility], PA-C Unavailable Unavailabl e Fish, [facility], PA-C Unavailable Unavailabl e Fish, [facility], PA-C Unavailable Unavailabl e Fish, [facility], PA-C Unavailable Unavailabl e Fish, [facility], PA-C Unavailable Unavailabl e Fish, [facility], PA-C Unavailable Unavailabl e Fish, [facility], PA-C Unavailable Unavailabl e Fish, [facility], PA-C Unavailable Unavailabl e Fish, [facility], PA-C Unavailable Unavailabl e Fish, [facility], PA-C Unavailable Unavailabl e Fish, [facility], PA-C Unavailable Unavailabl e Fish, [facility], PA-C Unavailable Unavailabl e Fish, [facility], PA-C Unavailable Unavailabl e Fish, [facility], PA-C Unavailable Unavailabl e Enriquez, Maria Elena PUBLISHER ASSISTANT Unavailable Unavailable Enriquez, Maria Elena PUBLISHER ASSISTANT Unavailable Unavailable Enriquez, Maria Elena PUBLISHER ASSISTANT Unavailable Unavailable Enriquez, Maria Elena PUBLISHER ASSISTANT Unavailable Unavailable Enriquez, Maria Elena PUBLISHER ASSISTANT Unavailable Unavailable Enriquez, Maria Elena PUBLISHER ASSISTANT Unavailable Unavailable Enriquez, Maria Elena PUBLISHER ASSISTANT Unavailable Unavailable Enriquez, Maria Elena PUBLISHER ASSISTANT Unavailable Unavailable Enriquez, Maria Elena PUBLISHER ASSISTANT Unavailable Unavailable Enriquez, Maria Elena PUBLISHER ASSISTANT Unavailable Unavailable Enriquez, Maria Elena PUBLISHER ASSISTANT Unavailable Unavailable Enriquez, Maria Elena PUBLISHER ASSISTANT Unavailable Unavailable Enriquez, Maria Elena PUBLISHER ASSISTANT Unavailable Unavailable Enriquez, Maria Elena PUBLISHER ASSISTANT Unavailable Unavailable Enriquez, Maria Elena PUBLISHER ASSISTANT Unavailable Unavailable Enriquez, Maria Elena PUBLISHER ASSISTANT Unavailable Unavailable Enriquez, Maria Elena PUBLISHER ASSISTANT Unavailable Unavailable Enriquez, Maria Elena PUBLISHER ASSISTANT Unavailable Unavailable Enriquez, Maria Elena PUBLISHER ASSISTANT Unavailable Unavailable Enriquez, Maria Elena PUBLISHER ASSISTANT Unavailable Unavailable Enriquez, Maria Elena PUBLISHER ASSISTANT Unavailable Unavailable Enriquez, Maria Elena PUBLISHER ASSISTANT Unavailable Unavailable Enriquez, Maria Elena PUBLISHER ASSISTANT Unavailable Unavailable Enriquez, Maria Elena PUBLISHER ASSISTANT Unavailable Unavailable Enriquez, Maria Elena PUBLISHER ASSISTANT Unavailable Unavailable Enriquez, Maria Elena PUBLISHER ASSISTANT Unavailable Unavailable Enriquez, Maria Elena PUBLISHER ASSISTANT Unavailable Unavailable Enriquez, Maria Elena PUBLISHER ASSISTANT Unavailable Unavailable Enriquez, Maria Elena PUBLISHER ASSISTANT Unavailable Unavailable Enriquez, Maria Elena PUBLISHER ASSISTANT Unavailable Unavailable Enriquez, Maria Elena PUBLISHER ASSISTANT Unavailable Unavailable Enriquez, Maria Elena PUBLISHER ASSISTANT Unavailable Unavailable Enriquez, Maria Elena PUBLISHER ASSISTANT Unavailable Unavailable Enriquez, Maria Elena PUBLISHER ASSISTANT Unavailable Unavailable Enriquez, Maria Elena PUBLISHER ASSISTANT Unavailable Unavailable Enriquez, Maria Elena PUBLISHER ASSISTANT Unavailable Unavailable MARKWITH, KAYKAY MONTEMAYOR Unavailable Unavailable MARKWITH, KAYKAY MONTEMAYOR Unavailable Unavailable MARKWITH, KAYKAY MONTEMAYOR Unavailable Unavailable MARKWITH, KAYKAY MONTEMAYOR Unavailable Unavailable MARKWITH, KAYKAY MONTEMAYOR Unavailable Unavailable MARKWITH, KAYKAY MONTEMAYOR Unavailable Unavailable MARKWITH, KAYKAY MONTEMAYOR Unavailable Unavailable MARKWITH, KAYKAY MONTEMAYOR Unavailable Unavailable MARKWITH, KAYKAY MONTEMAYOR Unavailable Unavailable MARKWITH, KAYKAY MD Unavailable Unavailable MARKWITH, KAYKAY MD Unavailable Unavailable MARKWITH, KAYKAY MD Unavailable Unavailable MARKWITH, KAYKAY MD Unavailable Unavailable MARKWITH, KYAKAY MD Unavailable Unavailable MARKWITH, KAYKAY MD Unavailable Unavailable MARKWITH, KAYKAY MD Unavailable Unavailable MARKWITH, KAYKYA MD Unavailable Unavailable MARKWITH, KAYKAY MD Unavailable Unavailable MARKWITH, KAYKAY MD Unavailable Unavailable MARKWITH, KAYKAY MD Unavailable Unavailable MARKWITH, KAYKAY MD Unavailable Unavailable MARKWITH, KAYKAY MD Unavailable Unavailable MARKWITH, KAYKAY MD Unavailable Unavailable MARKWITH, KAYKAY MD Unavailable Unavailable MARKWITH, KAYKAY MD Unavailable Unavailable MARKWITH, KAYKAY MONTEMAYOR Unavailable Unavailable MARKWITH, KAYKAY MONTEMAYOR Unavailable Unavailable MARKWITH, KAYKAY MONTEMAYOR Unavailable Unavailable MARKWITH, KAYKAY MONTEMAYOR Unavailable Unavailable MARKWITH, KAYKAY MONTEMAYOR Unavailable Unavailable MARKWITH, KAYKAY MONTEMAYOR Unavailable Unavailable MARKWITH, KAYKAY MONTEMAYOR Unavailable Unavailable MARKWITH, KAYKAY MONTEMAYOR Unavailable Unavailable Re-disclosure Warning The records that [...] is protected by Article 27-F of the [facility] Public Health law. If you continue you may have access to information: Regarding HIV / AIDS; Provided by facilities licensed or operated by the [facility] Office of Mental Health; or Provided by the [place] Office for People With Developmental Disabilities. If such information is present, then the following [facility] mandated warning applies: This information has been [...] law may result in a fine or alf sentence or both. A general authorization for the release of medical or other information is NOT sufficient authorization for further disc losure. Family History Family Member Name Family Member Gender Family Member Status Date o f Status Description Data Source(s) Unknown Unknown Problem MEDENT ([facility]) Unknown Male Problem MEDENT ([facility] ) Encounters Encounter Providers Location Date Indications Data Source(s ) Unknown [address] [facility] [address] 07/20/2020 12:00:00 AM EST eCW1 ([facility]) Outpatient 07/17/2020 05:45:00 PM EST S evere pancreatitis, sepsis secondary to pancreatitis, and O [facility] Severe pancreatitis, sepsis secondary to pancreatitis, and [facility] Outpatient [address] [facility] [address] 07/08/2020 12:00:00 AM EST eCW1 ([facility]) Unknown [address] [facility] [address] 07/08/2020 12:00:00 AM EST eCW1 ([facility]) Office Visit Attender: KAYKAY VANEGAS MD Physical Therapy 09:00:00 AM EST MED[facility] ([facility]) Unknown [address] [facility] [place] [address] 06/18/2020 12:00:00 AM EST eCW1 ([facility]) Unknown [address] [facility] [place] [address] 06/16/2020 12:00:00 AM EST eCW1 ([facility]) Unknown [address] [facility] [place] [address] 06/10/2020 12:00:00 AM EST eCW1 ([facility]) Office Visit Attender: KAYKAY VANEGAS MD Physical Therapy 09:00:00 AM EST MEDENT ([facility]) Unknown [address] [facility] [address] 05/19/2020 12:00:00 AM EST [facility] [place] Outpatient Attender: Maria Elena Enriquez FNPReferrer: Darien winkler 05/18/2020 12:00:00 PM EST - 05/18/2020 12:00:00 PM EST [facility] pital Unknown [address] [facility] [place] [address] 05/14/2020 12:00:00 AM EST eCW1 ([facility] [place]) Outpatient Attender: Maria Elena Trammellferrer: Darien winkler 05/13/2020 10:30:00 AM [facility] Outpatient Attender: ALTHEA KIMBROUGH MD Main office - [facility] 05/04/2020 12:00:00 PM EST MEDENT ([facility]) Unknown [address] [facility] [address] 05/01/2020 12:00:00 AM EST eCW1 [facility] Unknown [address] [facility] [address] 04/29/2020 12:00:00 AM EST [facility]CW[facility]) Outpatient Attender: KAYKAY MATTHEWS [facility] Office 04/12 02:00:00 PM EST [facility] ([facility] Unknown [address] [facility] [place] [address] 04/24/2020 12:00:00 AM EST eCW1 ([facility]) Outpatient Attender: KAYKAY MATTHEWS [facility] Office 03/14 02:15:00 PM EDT MEDENT ([facility] Unknown [address] [facility] [address] 04/10/2020 12:00:00 AM EDT eCW1 ([facility]) [place] [address] [facility] [place] [address] 03/30/2020 12:00:00 AM EDT eCW1 ([facility]) Outpatient Attender: KAYKAY VANEGAS MD Physical Therapy 03:15:00 PM EDT MEDENT ([facility]) Unknown [address] [facility] [address] 03/11/2020 12:00:00 AM EDT eCW1 ([facility]) Outpatient Attender: Birgti CARBALLO PA-C Physical Therapy 02/11/2020 01:15:00 PM EDT MED[facility] ([facility]) Unknown [address] [facility] [place] [address] 12/27/2019 12:00:00 AM EDT eCW1 ([facility]) Outpatient [address] [facility] [place] [address] 12/24/2019 12:00:00 AM EDT eCW1 ([facility]) Unknown [address] [facility] [place] [address] 12/24/2019 12:00:00 AM EDT eCW1 ([facility]) Unknown [address] [facility] [place] [address] 11/29/2019 12:00:00 AM EDT eCW1 ([facility]) Unknown [address] [facility] [place] [address] 11/12/2019 12:00:00 AM EDT eCW1 ([facility]) [facility] [address] [facility] [place] [address] 10/30/2019 12:00:00 AM EDT eCW1 ([facility]) [facility] [address] [facility] [place] [address] 10/23/2019 12:00:00 AM EDT eCW1 ([facility]) [facility] [address] [facility] [place] [address] 10/14/2019 12:00:00 AM EDT eCW1 ([facility]) [address] [address] 10/04/2019 12:00:00 AM EDT eCW1 ([facility]) Outpatient Attender: Birgit CARBALLO PA-C Physical Therapy 10/03/2019 09:00:00 AM EDT MEDENT ([facility] [address] [place] [address] 09/18/2019 12:00:00 AM EDT eCW1 ([facility]) Outpatient Attender: Birgit CARBALLO PA-C Physical Therapy 09/12/2019 01:15:00 PM EDT MEDENT ([facility]) [address] [address] 09/09/2019 12:00:00 AM EDT eCW1 ([facility]) [address] [place] [address] 08/19/2019 12:00:00 AM EDT eCW1 ([facility]) [address] [address] 08/08/2019 12:00:00 AM EST eCW1 ([facility] [address] [address] 08/02/2019 12:00:00 AM EST eCW1 ([facility]) Emergency Attender: IVETT Stafford: Abhijeet Rivers EMERGENCY ROOM-ER 08/01/2019 01:21:00 PM EST - 08/01/2019 03:25:00 PM [facility] Patient discharged. [address] [address] 08/01/2019 12:00:00 AM EST eCW1 ([facility]) [address] [address] 08/01/2019 12:00:00 AM EST eCW1 ([facility]) [facility] [address] [facility] [place] [address] 06/25/2019 12:00:00 AM EST eCW1 ([facility]) [facility] [address] [facility] [place] [address] 06/24/2019 12:00:00 AM EST eCW1 ([facility]) Medications Medication Brand Name Start Date Product Form Dose Route Admi nistrative Instructions Pharmacy Instructions Status Indications Reaction Description Data Source(s) 5-325 mg 07/01/2020 12:00:00 AM EST tablet 20 TAKE ONE TABLET BY MOUTH EVERY DAY NEEDED MAXIMUM DAILY DOSE = 1 TABLET TAKE ONE TABLET BY MOUTH EVERY DAY NEEDED MAXIMUM DAILY DOSE = 1 TABLET SOLD: 07/01/2020 [facility] Acetaminophen 325 MG / Oxycodone Hydrochloride 5 MG Or al Tablet Oxycodone-Acetaminophen 07/01/2020 12:00:00 AM EST completed MEDENT ([facility] ) Escitalopram 20 MG Oral Tablet ESCITALOPRAM OXALATE 06/21/2020 1 2:00:00 AM EST tablet 30 TAKE ONE TABLET BY MOUTH EVERY D AY TAKE ONE TABLET BY MOUTH EVERY DAY SOLD: 07/01/2020 [facility] 5-325 mg 06/19/2020 12:00:00 AM EST tablet 10 TAKE ONE TABLET BY MOUTH EVERY 12 HOURS FOR PAIN MAX=2TABS/DAY TAKE ONE TABLET BY MOUTH EVERY 12 HOURS FOR PAIN MAX=2TABS/DAY SOLD: 06/20/2020 [facility] 50 mg 06/13/2020 12:00:00 AM EST tablet 21 TAKE ONE TABLET BY MOUTH THREE TIMES A DAY NEEDED MAX=3TABS/DAY TAKE ONE TABLET BY MOUTH THREE TIMES A D AY NEEDED MAX=3TABS/DAY SOLD: 06/13/2020 [facility] 5-325 mg 06/10/2020 12:00:00 AM EST tablet 15 TAKE ONE TABLET BY MOUTH EVERY 8 HOURS NEEDED FOR PAIN MAXIMUM DAILY DOSE = 3 TABLETS TAKE ONE TABLET BY MOUTH EVERY 8 HOURS NEEDED FOR PAIN MAXIMUM DAILY DOSE = 3 TABLETS SOLD: 06/13/2020 [facility] Escitalopram 10 MG Oral Tablet ESCITALOPRAM OXALATE 06/03/2020 1 2:00:00 AM EST tablet 30 TAKE ONE TABLET BY MOUTH EVERY D AY TAKE ONE TABLET BY MOUTH EVERY DAY SOLD: 07/29/2020 [facility] Escitalopram 10 MG Oral [...] 05/29/2020 12:00:00 AM EST ORAL active MEDENT ([facility] ) 5-325 mg 05/22/2020 12:00:00 AM EST tablet [...] 05/04/2020 12:00:00 AM EST ORAL active MED[facility] ([facility] ) pantoprazole 40 MG Delayed Release [...] DAY WITH A MEAL SOLD: [facility] pantoprazole 40 MG Delayed Release Oral Tablet PANTOPRAZOLE SODIUM 05/01/2020 12:00:00 AM EST tablet,delayed release (DR/EC) 30 T HANDY ONE TABLET BY MOUTH EVERY DAY TAKE ONE TABLET BY MOUTH EVERY DAY SOLD: 07/29/2020 [facility] 54 mg 05/01/2020 12:00:00 AM [...] A MEAL SOLD: 05/06/2020 [facility] 20 mg 05/01/2020 12:00:00 AM EST tablet 60 TAKE ONE TABLET BY MOUTH TWICE A DAY TAKE ONE TABLET BY MOUTH TWICE A DAY SOLD: 07/29/2020 [facility] 100 mg 05/01/2020 12:00:00 AM EST capsule 60 TAKE ONE CAPSULE BY MOUTH TWICE A DAY TAKE ONE CAPSULE BY MOUTH TWICE A DAY SOLD: 07/01/2020 [facility] 100 mg 05/01/2020 12:00:00 AM EST capsule 60 TAKE ONE CAPSULE BY MOUTH TWICE A DAY TAKE ONE CAPSULE BY MOUTH TWICE A DAY SOLD: 07/29/2020 [facility] atorvastatin 40 MG Oral Tablet ATORVASTATIN CALCIUM 05/01/2020 1 2:00:00 AM EST tablet 30 TAKE ONE TABLET BY MOUTH EVERY D AY TAKE ONE TABLET BY MOUTH EVERY DAY SOLD: 07/29/2020 [facility] 25 mg 05/01/2020 12:00:00 AM EST capsule 30 TAKE ONE CAPSULE BY MOUTH EVERY DAY TAKE ONE CAPSULE BY MOUTH EVERY DAY SOLD: 05/06/2020 [facility] 25 mg 05/01/2020 12:00:00 AM EST capsule 30 TAKE ONE CAPSULE BY MOUTH EVERY DAY TAKE ONE CAPSULE BY MOUTH EVERY DAY SOLD: 07/29/2020 [facility] 100 mg 05/01/2020 12:00:00 AM [...] ONCE DAILY SOLD: 05/23/2020 [facility] 1,250 mcg (50,000 unit) 04/17/2020 12:00:00 AM EST capsule 4 TAKE ONE CAPSULE BY MOUTH WEEKLY TAKE ONE CAPSULE BY MOUTH WEEKLY SOLD: 07/29/2020 [facility] 500 mg 04/10/2020 12:00:00 AM EDT tablet 60 TAKE ONE TABLET BY MOUTH TWICE A DAY WITH FOOD TAKE ONE TABLET BY MOUTH TWICE A DAY WITH FOOD SOLD: 07/29/2020 [facility] 500 mg 04/10/2020 12:00:00 AM [...] 04/10/2020 12:00:00 AM EDT completed [facility] ([facility] Naproxen 500 MG Oral Tablet Naproxen 04/10/2020 12:00:00 AM EDT active [facility] ([facility] Morphine Sulfate 15 MG Extended Release Oral Tablet [MS Cont in] MS Contin 04/08/2020 12:00:00 AM EDT ORAL completed MEDENT ([facility]) Acetaminophen 325 MG / Oxycodone Hydrochloride 5 MG Or al Tablet [Percocet] Percocet 04/08/2020 12:00:00 AM EDT ORAL completed MED[facility] ([facility]) 50 mg 03/31/2020 12:00:00 [...] BY MOUTH EVERY DAY WITH FOOD SOLD: 07/29/2020 [facility] 400 mg (241.3 mg [...] ONE CAPSULE BY MOUTH TWICE A DAY [facility] SOLD: 02/16/2020 [facility] [...] E DT active Ibuprofen 600 MG eCW1 ([facility]) Ibuprofen 600 MG Oral Tablet Ibuprofen 600 MG 12/24/2019 12:00:00 AM E DT active Ibuprofen 600 MG eCW1 ([facility]) Ibuprofen 600 MG Oral Tablet Ibuprofen 600 MG 12/24/2019 12:00:00 AM E DT active Ibuprofen 600 MG eCW1 ([facility]) Ibuprofen 600 MG Oral Tablet Ibuprofen 600 MG 12/24/2019 12:00:00 AM E DT active Ibuprofen 600 MG eCW1 ([facility]) Ibuprofen 600 MG Oral Tablet Ibuprofen 600 MG 12/24/2019 12:00:00 AM E DT active Ibuprofen 600 MG eCW1 ([facility]) Ibuprofen 600 MG Oral Tablet Ibuprofen 600 MG 12/24/2019 12:00:00 AM E DT active Ibuprofen 600 MG eCW1 ([facility]) Ibuprofen 600 MG Oral Tablet Ibuprofen 600 MG 12/24/2019 12:00:00 AM E DT active Ibuprofen 600 MG eCW1 ([facility]) Ibuprofen 600 MG Oral Tablet Ibuprofen 600 MG 12/24/2019 12:00:00 AM E DT active Ibuprofen 600 MG eCW1 ([facility]) Ibuprofen 600 MG Oral Tablet Ibuprofen 600 MG 12/24/2019 12:00:00 AM E DT active Ibuprofen 600 MG eCW1 ([facility]) Ibuprofen 600 MG Oral Tablet Ibuprofen 600 MG 12/24/2019 12:00:00 AM E DT active Ibuprofen 600 MG eCW1 ([facility]) Ibuprofen 600 MG Oral Tablet Ibuprofen 600 MG 12/24/2019 12:00:00 AM E DT active Ibuprofen 600 MG eCW1 ([facility]) Ibuprofen 600 MG Oral Tablet Ibuprofen 600 MG 12/24/2019 12:00:00 AM E DT active Ibuprofen 600 MG eCW1 ([facility]) Ibuprofen 600 MG Oral Tablet Ibuprofen 600 MG 12/24/2019 12:00:00 AM E DT active Ibuprofen 600 MG eCW1 ([facility]) Ibuprofen 600 MG Oral Tablet Ibuprofen 600 MG 12/24/2019 12:00:00 AM E DT active Ibuprofen 600 MG eCW1 ([facility]) 600 mg 12/24/2019 12:00:00 AM EDT tablet 30 TAKE ONE TABLET BY MOUTH THREE TIMES A DAY NEEDED, WITH FOOD OR MILK TAKE ONE TABLET BY MOUTH THREE TIMES A DAY NEEDED, WITH FOOD OR MILK SOLD: 12/24/2019 [facility] Ibuprofen 600 MG Oral Tablet Ibuprofen 600 MG 12/24/2019 12:00:00 AM E DT active Ibuprofen 600 MG eCW1 ([facility]) 600 mg 12/24/2019 12:00:00 AM EDT tablet 30 TAKE ONE TABLET BY MOUTH THREE TIMES A DAY NEEDED, WITH FOOD OR MILK TAKE ONE TABLET BY MOUTH THREE TIMES A DAY NEEDED, WITH FOOD OR MILK SOLD: 05/17/2020 [facility] Ibuprofen 600 MG Oral Tablet Ibuprofen 600 MG 12/24/2019 12:00:00 AM E DT active Ibuprofen 600 MG eCW1 ([facility]) Ibuprofen 600 MG Oral Tablet Ibuprofen 600 MG 12/24/2019 12:00:00 AM E DT active Ibuprofen 600 MG eCW1 ([facility]) 50 mg 12/11/2019 12:00:00 AM EDT tablet [...] A DAY WI FOOD AND WATER SOLD: 12/09/2019 [facility] lubiprostone 0.024 MG Oral Capsule [Amitiza] Amitiza 24 MCG Amitiza 24 MCG 11/29/2019 12:00:00 AM EDT active Amitiza 24 MCG eCW1 ([facility]) lubiprostone 0.024 MG Oral Capsule [Amitiza] Amitiza 24 MCG Amitiza 24 MCG 11/29/2019 12:00:00 AM EDT active Amitiza 24 MCG eCW1 ([facility]) lubiprostone 0.024 MG Oral Capsule [Amitiza] Amitiza 24 MCG Amitiza 24 MCG 11/29/2019 12:00:00 AM EDT active Amitiza 24 MCG eCW1 ([facility]) lubiprostone 0.024 MG Oral Capsule [Amitiza] Amitiza 24 MCG Amitiza 24 MCG 11/29/2019 12:00:00 AM EDT active Amitiza 24 MCG eCW1 ([facility]) lubiprostone 0.024 MG Oral Capsule [Amitiza] Amitiza 24 MCG Amitiza 24 MCG 11/29/2019 12:00:00 AM EDT active Amitiza 24 MCG eCW1 ([facility]) lubiprostone 0.024 MG Oral Capsule [Amitiza] Amitiza 24 MCG Amitiza 24 MCG 11/29/2019 12:00:00 AM EDT active Amitiza 24 MCG eCW1 ([facility]) lubiprostone 0.024 MG Oral Capsule [Amitiza] Amitiza 24 MCG Amitiza 24 MCG 11/29/2019 12:00:00 AM EDT active Amitiza 24 MCG eCW1 ([facility]) lubiprostone 0.024 MG Oral Capsule [Amitiza] Amitiza 24 MCG Amitiza 24 MCG 11/29/2019 12:00:00 AM EDT active Amitiza 24 MCG eCW1 ([facility]) lubiprostone 0.024 MG Oral Capsule [Amitiza] Amitiza 24 MCG Amitiza 24 MCG 11/29/2019 12:00:00 AM EDT active Amitiza 24 MCG eCW1 ([facility]) lubiprostone 0.024 MG Oral Capsule [Amitiza] Amitiza 24 MCG Amitiza 24 MCG 11/29/2019 12:00:00 AM EDT active Amitiza 24 MCG eCW1 ([facility]) lubiprostone 0.024 MG Oral Capsule [Amitiza] Amitiza 24 MCG Amitiza 24 MCG 11/29/2019 12:00:00 AM EDT active Amitiza 24 MCG eCW1 ([facility]) lubiprostone 0.024 MG Oral Capsule [Amitiza] Amitiza 24 MCG Amitiza 24 MCG 11/29/2019 12:00:00 AM EDT active Amitiza 24 MCG eCW1 ([facility]) lubiprostone 0.024 MG Oral Capsule [Amitiza] Amitiza 24 MCG Amitiza 24 MCG 11/29/2019 12:00:00 AM EDT active Amitiza 24 MCG eCW1 ([facility]) lubiprostone 0.024 MG Oral Capsule [Amitiza] Amitiza 24 MCG Amitiza 24 MCG 11/29/2019 12:00:00 AM EDT active Amitiza 24 MCG eCW1 ([facility]) lubiprostone 0.024 MG Oral Capsule [Amitiza] Amitiza 24 MCG Amitiza 24 MCG 11/29/2019 12:00:00 AM EDT active Amitiza 24 MCG eCW1 ([facility]) lubiprostone 0.024 MG Oral Capsule [Amitiza] Amitiza 24 MCG Amitiza 24 MCG 11/29/2019 12:00:00 AM EDT active Amitiza 24 MCG eCW1 ([facility]) lubiprostone 0.024 MG Oral Capsule [Amitiza] Amitiza 24 MCG Amitiza 24 MCG 11/29/2019 12:00:00 AM EDT active Amitiza 24 MCG eCW1 ([facility]) lubiprostone 0.024 MG Oral Capsule [Amitiza] Amitiza 24 MCG Amitiza 24 MCG 11/29/2019 12:00:00 AM EDT active Amitiza 24 MCG eCW1 ([facility]) 50 mg 11/13/2019 12:00:00 AM EDT tablet [...] TIMES A DA Y NEEDED SOLD: 10/26/2019 [facility] Fenofibrate 54 MG Oral Tablet FENOFIBRATE 10/14/2019 12:00:00 AM EDT tablet 30 TAKE ONE TABLET BY MOUTH EVERY DAY WITH A MEAL TAKE ON E TABLET BY MOUTH EVERY DAY WITH A MEAL SOLD: 10/26/2019 [facility] 20 mg 10/14/2019 12:00:00 AM EDT tablet 60 TAKE ONE TABLET BY MOUTH TWICE A DAY TAKE ONE TABLET BY MOUTH TWICE A DAY SOLD: 11/28/2019 [facility] Fenofibrate 54 MG Oral Tablet FENOFIBRATE 10/14/2019 12:00:00 AM EDT tablet 30 TAKE ONE TABLET BY MOUTH EVERY DAY WITH A MEAL TAKE ON E TABLET BY MOUTH EVERY DAY WITH A MEAL SOLD: 11/28/2019 [facility] 40 mg 10/14/2019 12:00:00 AM EDT tablet 30 TAKE ONE TABLET BY MOUTH EVERY DAY TAKE ONE TABLET BY MOUTH EVERY DAY SOLD: 11/28/2019 [facility] 40 mg 10/14/2019 12:00:00 AM EDT tablet 30 TAKE ONE TABLET BY MOUTH EVERY DAY TAKE ONE TABLET BY MOUTH EVERY DAY SOLD: 12/28/2019 [facility] Fenofibrate 54 MG Oral Tablet FENOFIBRATE 10/14/2019 12:00:00 AM EDT tablet 30 TAKE ONE TABLET BY MOUTH EVERY DAY WITH A MEAL TAKE ON E TABLET BY MOUTH EVERY DAY WITH A MEAL SOLD: 02/28/2020 [facility] 40 mg 10/14/2019 12:00:00 AM EDT tablet,delayed release (DR/EC) 30 TAKE ONE TABLET BY MOUTH EVERY DAY TAKE ONE TABLET BY MOUTH EVERY DAY SOLD: 10/26/2019 [facility] Fenofibrate 54 MG Oral Tablet FENOFIBRATE 10/14/2019 12:00:00 AM EDT tablet 30 TAKE ONE TABLET BY MOUTH EVERY DAY WITH A MEAL TAKE ON E TABLET BY MOUTH EVERY DAY WITH A MEAL SOLD: 12/28/2019 [facility] 40 mg 10/14/2019 12:00:00 AM EDT [...] BY MOUTH TWICE A DAY SOLD: 02/28/2020 [facility] Escitalopram 10 MG Oral Tablet ESCITALOPRAM OXALATE 10/14/2019 1 2:00:00 AM EDT tablet 30 TAKE ONE TABLET BY MOUTH EVERY D AY TAKE ONE TABLET BY MOUTH EVERY DAY SOLD: 11/28/2019 [facility] 100 mg 10/14/2019 12:00:00 AM EDT capsule 60 TAKE ONE CAPSULE BY MOUTH TWICE A DAY TAKE ONE CAPSULE BY MOUTH TWICE A DAY SOLD: 10/26/2019 [facility] 20 mg 10/14/2019 12:00:00 AM EDT tablet 60 TAKE ONE TABLET BY MOUTH TWICE A DAY TAKE ONE TABLET BY MOUTH TWICE A DAY SOLD: 02/28/2020 [facility] 25 mg 10/14/2019 12:00:00 AM EDT capsule 30 TAKE ONE CAPSULE BY MOUTH EVERY DAY TAKE ONE CAPSULE BY MOUTH EVERY DAY SOLD: 10/26/2019 [facility] atorvastatin 40 MG Oral Tablet ATORVASTATIN [...] CAPSULE BY MOUTH EVERY DAY SOLD: 01/28/2020 [facility] 25 mg 10/14/2019 12:00:00 AM EDT capsule 30 TAKE ONE CAPSULE BY MOUTH EVERY DAY TAKE ONE CAPSULE BY MOUTH EVERY DAY SOLD: 02/28/2020 [facility] Escitalopram 10 MG Oral Tablet ESCITALOPRAM OXALATE 10/14/2019 1 2:00:00 AM EDT tablet 30 TAKE ONE TABLET BY MOUTH EVERY D AY TAKE ONE TABLET BY MOUTH EVERY DAY SOLD: 10/26/2019 [facility] 25 mg 10/14/2019 12:00:00 AM EDT capsule 30 TAKE ONE CAPSULE BY MOUTH EVERY DAY TAKE ONE CAPSULE BY MOUTH EVERY DAY SOLD: 11/28/2019 [facility] Fenofibrate 54 MG Oral Tablet FENOFIBRATE 10/14/2019 12:00:00 AM EDT tablet 30 TAKE ONE TABLET BY MOUTH EVERY DAY WITH A MEAL TAKE ON E TABLET BY MOUTH EVERY DAY WITH A MEAL SOLD: 04/04/2020 [facility] trospium chloride 20 MG Oral Tablet [...] BY MOUTH ONCE A WEEK SOLD: 02/16/2020 [facility] 1,250 mcg (50,000 unit) 10/11/2019 [...] DAILY DOSE = 3 TABLETS SOLD: 09/18/2019 [facility] Escitalopram 20 MG Oral Tablet ESCITALOPRAM [...] BY MOUTH TWICE A DAY WI FOOD OR WATER SOLD: 08/22/2019 [facility] 24 mcg 07/10/2019 12:00:00 AM EST capsule 60 TAKE ONE CAPSULE BY MOUTH TWICE A DAY WITH FOOD OR WATER TAKE ONE CAPSULE BY MOUTH TWICE A DAY WI FOOD OR WATER SOLD: 10/26/2019 [facility] 24 mcg 07/10/2019 12:00:00 AM EST capsule 60 TAKE ONE CAPSULE BY MOUTH TWICE A DAY WITH FOOD OR WATER TAKE ONE CAPSULE BY MOUTH TWICE A DAY WI FOOD OR WATER SOLD: 09/18/2019 [facility] 24 mcg 07/10/2019 12:00:00 AM EST capsule 60 TAKE ONE CAPSULE BY MOUTH TWICE A DAY WITH FOOD OR WATER TAKE ONE CAPSULE BY MOUTH TWICE A DAY WI FOOD OR WATER SOLD: 07/10/2019 [facility] [...] DAILY DOSE = 3 TABLETS SOLD: 06/26/2019 [facility] Escitalopram 20 MG Oral Tablet [...] s Nystatin 100 UNT/MG Topical Powder Nystatin 129219 UNI T/GM Nystatin 668652 UNIT/GM 06/24/2019 12:00:00 AM EST active 1 application eCW1 ([facility]) 50 mg 05/06/2019 12:00:00 AM EST tablet [...] DAY WITH A MEAL SOLD: 09/18/2019 [facility] Fenofibrate 54 MG Oral [...] DAY WITH A MEAL SOLD: 07/23/2019 [facility] 20 mg 04/24/2019 12:00:00 AM EST tablet 60 TAKE ONE TABLET BY MOUTH TWICE A DAY TAKE ONE TABLET BY MOUTH TWICE A DAY SOLD: 09/18/2019 [facility] 20 mg 04/24/2019 12:00:00 AM EST tablet 60 TAKE ONE TABLET BY MOUTH TWICE A DAY TAKE ONE TABLET BY MOUTH TWICE A DAY SOLD: 08/22/2019 [facility] 20 mg 04/24/2019 12:00:00 AM EST tablet 60 TAKE ONE TABLET BY MOUTH TWICE A DAY TAKE ONE TABLET BY MOUTH TWICE A DAY SOLD: 07/23/2019 [facility] Nortriptyline 25 MG Oral Capsule NORTRIPTYLINE HCL 04/23/2019 12 :00:00 AM EST capsule 30 TAKE ONE CAPSULE BY MOUTH EVERY DAY TAKE ONE CAPSULE BY MOUTH EVERY DAY SOLD: 09/18/2019 [facility] 25 mg 04/23/2019 12:00:00 AM EST capsule 30 TAKE ONE CAPSULE BY MOUTH EVERY DAY TAKE ONE CAPSULE BY MOUTH EVERY DAY SOLD: 07/23/2019 [facility] Nortriptyline 25 MG Oral Capsule NORTRIPTYLINE HCL 04/23/2019 12 :00:00 AM EST capsule 30 TAKE ONE CAPSULE BY MOUTH EVERY DAY TAKE ONE CAPSULE BY MOUTH EVERY DAY SOLD: 08/22/2019 [facility] 40 mg 04/22/2019 12:00:00 AM EST tablet 30 TAKE ONE TABLET BY MOUTH EVERY DAY TAKE ONE TABLET BY MOUTH EVERY DAY SOLD: 07/23/2019 [facility] 100 mg 04/22/2019 12:00:00 AM [...] type / Coverage type Policy ID Covered democrat ID Covered democrat's relationship to estevez Policy Estevez Plan Information [facility] [id number] SP [id number] MEDICAID M [id number] Self [id number] [facility] I [id number] Self [id number] SELF PAY ONLY [id number] SP [id number] [facility] MEDICAID [id number] S [id number] MEDICAID [id number] S [id number] [facility] MEDICAID [id number] S [id number] BCBS [facility] FAMILY HEALTH PL [id number] S [id number] MEDICAID [id number] SP [id number] P MCDHMO [id number] [facility] Medicaid Commercial [id number] Self [id number] BC/BS Family Health Plus Medigap Part B [id number] Self [id number] MVP Gold Commercial [id number] Self [id number] ANSI-Not a Secondary Insurance [id number] [employer] HE[employer] CARE O [id number] S [id number] ANSI-Not a Secondary Insurance [id number] ANSI-Not a Secondary Insurance [id number] MVP MCDHMO [id number] SP [id number] ANSI-Not a Secondary Insurance [id number] MVP Medicaid Commercial [id number] Self [id number] MVP Medicaid Commercial [id number] Self [id number] BC/BS Family Health Plus Medigap Part B [id number] Self [id number] MVP Gold Commercial [id number] Self [id number] BC/BS Family Health Plus Medigap Part B [id number] Self [id number] MVP Gold Commercial [id number] Self [id number] BC/BS Family Health Plus Medigap Part B [id number] Self [id number] MVP Gold Commercial [id number] Self [id number] MVP MCDO [id number] SP [id number] BC/BS Family Health Plus Medigap Part B [id number] Self [id number] MVP Gold Commercial [id number] Self [id number] UNHC COMMUNITY PLAN MCDHMO [id number] SP [id number] UNITED [employer](MCAID) O [id number] S [id number] UNHC COMMUNITY PLAN MCDHMO [id number] SP [id number] [employer] [facility] MEDICAID [place] HMO [id number] S [id number] [employer] [id number] SP [id number] MEDICAID [id number] SP [id number] HMO BLUE [id number] SP [id number] BLUE CROSS GRAY PLAN [id number] SP [id number] [facility] [id number] SP [id number] BLUE CHOICE OPTION O [id number] S [id number] MEDICAID W [id number] S [id number] BLUE CHOICE OPTION O [id number] S [id number] Problems, Conditions, and Diagnoses Code Display Name Description Problem Type Effective Dates Data Source(s) 49418469 Calcaneal spur Calcaneal spur Problem 04/13/2020 12:00: 00 AM EST [facility] ([facility] [id number] Plantar fascial fibromatosis Plantar fascial fibromato sis Problem 04/13/2020 12:00:00 AM EST [facility] ([facility] E78.5 Dyslipidemia Dyslipidemia Problem 12/24/2019 12:00:00 A M EDT eCW1 ([facility]) Severe pancreatitis, sepsis secondary to pancreatitis, and SBO Severe pancreatitis, sepsis secondary to pancreatitis, and SBO Diagnosis 07/17/2020 05:45:00 PM [facility] N60.02 Solitary cyst of left breast SOLITARY CYST OF LEFT LIDIA AST Diagnosis 05/18/2020 12:00:00 PM [facility] N60.01 Solitary cyst of right breast SOLITARY CYST OF RIGHT B REAST Diagnosis 05/18/2020 12:00:00 PM [facility] R92.8 Other abnormal and inconclusive findings on diagnostic imaging of breast OTH ABN AND INCONCLUSIVE FINDINGS ON DX IMAGING OF BREAST Diagnosis 05/18/2020 12:00:00 PM [facility] Z12.31 Encounter for screening mammogram for ma lignant neoplasm of breast ENCNTR SCREEN MAMMOGRAM FOR MALIGNANT NEOPLASM OF BREAST Diagnosis 07/2019 10:30:00 AM [facility] J01.00 Acute maxillary sinusitis, unspecified A CUTE MAXILLARY SINUSITIS, UNSPECIFIED Diagnosis 08/01/2019 01:21:[facility] J[facility]9 Unspecified bacterial pneumonia UNSPECIFIED BACTERIAL PNEUMONIA Diagnosis 08/01/2019 01:21:00 PM [facility] R09.3 Abnormal sputum ABNORMAL SPUTUM Diagnosis 08/01/2019 01:2 1:00 PM [facility] Surgeries/Procedures Procedure Description Date Indications Data Source(s) APPLICATION MODALITY 1/> AREAS HOT/COLD PACKS 07/16/19 21 12:00:00 AM EST [facility] ([facility]) THERAPEUTIC PX 1/> AREAS EACH 15 MIN EXERCISES 021 12:00:00 AM EST [facility] ([facility]) THERAPEUTIC PX 1/> AREAS EACH 15 MIN EXERCISES 021 12:00:00 AM EST [facility] ([facility] APPLICATION MODALITY 1/> AREAS HOT/COLD PACKS 07/06/19 21 12:00:00 AM EST [facility] ([facility] ) THERAPEUTIC PX 1/> AREAS EACH 15 MIN EXERCISES 021 12:00:00 AM EST [facility] ([facility] ) APPLICATION MODALITY 1/> AREAS HOT/COLD PACKS 06/17/19 21 12:00:00 AM EST [facility] ([facility] ) THERAPEUTIC PX 1/> AREAS EACH 15 MIN EXERCISES 021 12:00:00 AM EST [facility] ([facility]) APPLICATION MODALITY 1/> AREAS HOT/COLD PACKS 06/15/19 21 12:00:00 AM EST [facility] ([facility] ) THERAPEUTIC PX 1/> AREAS EACH 15 MIN EXERCISES 021 12:00:00 AM EST [facility] ([facility] ) Physical Therapy Eval - Low Complexity 06/02/2020 12:0 0:00 AM EST [facility] ([facility] ) SHOULDER SCOPE BONE SHAVING 05/20/2020 12:00:00 AM EST [facility] ([facility] ) ARTHROSCOPY SHOULDER ROTATOR CUFF REPAIR 05/20/2020 12 :00:00 AM EST [facility] ([facility] ) Magnetic Resonance Angiogtaphy Head W/O Contrast Material(S) 05/18/2020 12:00:00 AM EST [facility] ([facility]) Magnetic Resonance Angiogtaphy Head W/O Contrast Material(S) 05/18/2020 12:00:00 AM EST [facility] ([facility]) Magnetic Resonance Angiography Neck W/O Contrast Materials 05/18/2020 12:00:00 AM EST [facility] ([facility]) Magnetic Resonance Angiography Neck W/O Contrast Materials 05/18/2020 12:00:00 AM EST [facility] ([facility]) MRI BRAIN BRAIN STEM W/O CONTRAST MATERIAL 05/18/2020 12:00:00 AM EST [facility] ([facility] ) MRI BRAIN BRAIN STEM W/O CONTRAST MATERIAL 05/18/2020 12:00:00 AM EST [facility] ([facility] ) Needle electromyography, each extremity, with related paraspinal areas, when performed, done with nerve conduction, amplitude and latency/velocity study; complete, five or more muscles studied, innervated by three or more nerves or four or more spinal levels (list separately in addition to the code for primary procedure). 05/13/2020 12:00:00 AM EST [facility] T ([facility] ) Needle electromyography, each extremity, with related paraspinal areas, when performed, done with nerve conduction, amplitude and latency/velocity study; complete, five or more muscles studied, innervated by three or more nerves or four or more spinal levels (list separately in addition to the code for primary procedure). 05/13/2020 12:00:00 AM EST [facility] T ([facility] ) 58595 Nerve conduction studies 13 or more studies NEW 201205/13/2020 12:00:00 AM EST [facility] ([facility] ) TSTG ANS FUNCJ CARDIOVAGAL INNERVAJ PARASYMP 0 12:00:00 AM EST [facility] ([facility] ) TSTG ANS FUNCJ CARDIOVAGAL INNERVAJ PARASYMP 0 12:00:00 AM EST [facility] ([facility] ) TESTING AUTONOMIC NERVOUS SYSTEM FUNCTION 05/13/2020 1 2:00:00 AM EST [facility] ([facility] ) TESTING AUTONOMIC NERVOUS SYSTEM FUNCTION 05/13/2020 1 2:00:00 AM EST [facility] ([facility] ) NON-INVASIVE PHYSIOLOGIC STUDY EXTREMITY 3 LEVLS 05/13 12:00:00 AM EST [facility] ([facility] ) APPLICATION MODALITY 1/> AREAS HOT/COLD PACKS 04/30/20 20 12:00:00 AM EST [facility] ([facility] ) THERAPEUTIC PX 1/> AREAS EACH 15 MIN EXERCISES 020 12:00:00 AM EST [facility] ([facility] Physical Therapy Eval - Low Complexity 04/24/2020 12:0 0:00 AM EST [facility] ([facility]) Strapping Foot Or Ankle 04/10/2020 12:00:00 AM EDT [facility] ([facility] RADEX FOOT COMPLETE MINIMUM 3 VIEWS 04/10/2020 12:00:0 0 AM EDT [facility] ([facility] ARTHROCENTESIS ASPIR&/INJECTION MAJOR JT/BURSA 020 12:00:00 AM EDT [facility] ([facility]) RADEX SHOULDER COMPLETE MINIMUM 2 VIEWS 09/12/2019 12: 00:00 AM EDT [facility] ([facility]) Results ID Date Data Source [id number] 07/26/2020 04:43:00 PM EST [facility] Name Value Range Interpretation Code Description Data Ammy rce(s) Supporting Document(s) Microorganism or agent identified in Unspecified speci men Negative for SARS-CoV-2 RNA. [facility] This lab was ordered by [facility] and reported by Department of Pathology and Laboratory Medicine at [facility]. ID Date Data Source [id number] 07/17/2020 09:51:00 AM EST [facility] Name Value Range Interpretation Code Description Data Ammy rce(s) Supporting Document(s) SARS coronavirus 2 RNA [Presence] in Res piratory specimen by VERA with probe detection NEGATIVE [facility] This lab was ordered by [facility] a nd reported by [facility]. ID Date Data Source [id number] 06/20/2020 12:00:00 AM EST [facility] Name Value Range Interpretation Code Description Data Ammy rce(s) Supporting Document(s) SARS-CoV-2 (COVID-19) RNA [Presence] in Respiratory specimen by VERA with probe detection Not Detected [facility] This lab was ordered by [facility] and reported by [facility]. ID Date Data Source [id number] 05/19/2020 10:12:00 AM EST [facility] [...] Name Value Range Interpretation Code Description Data [facility](s) Supporting Document(s) ID Date Data Source [id number] 05/19/2020 10:12:00 AM EST [facility] [...] Name Value Range Interpretation Code Description Data [facility](s) Supporting Document(s) ID Date Data Source [id number] 05/18/2020 03:10:00 PM EST [facility] [...] MAMMO 05/18/2020 12:00:00 AM EST eCW1 ( [facility]) Name Value Range Interpretation Code Description Data Ammy rce(s) Supporting Document(s) DIAGNOSTIC BILATERAL MAMMO eCW 1 ([facility]) ID Date Data Source [id number] 05/15/2020 10:00:00 AM EST [facility] ([facility]) Name Value Range Interpretation Code Description Data Ammy rce(s) Supporting Document(s) Coronavirus 2019 Nasopharygeal Laboratory test result [facility] ([facility]) This nucleic acid amplification test was developed and its performance characteristics determined by [employer]. Nucleic acid amplification tests include PCR and [...] detected) result in this assay. Performed at: [employer] [facility] [address] [facility], [place], [place] [address] [id number] Global Category Manager: Maeve Mcfadden PhD, Phone: [phone] Not Detected ID Date Data Source [id number] 05/15/2020 10:00:00 AM EST [facility] Name Value Range Interpretation Code Description Data Ammy rce(s) Supporting Document(s) SARS coronavirus 2 RNA [facility] This lab was ordered by [facility] and reported by [facility]. ID Date Data Source [id number] 05/13/2020 01:47:00 PM EST [facility] ([facility] ) Name Value Range Interpretation Code Description Data Ammy rce(s) Supporting Document(s) Rheumatoid factor [Units/volume] in Serum or Plasma Laborato ry test result 0.0-13.9 [facility] ([facility] ) Thyrotropin [Units/volume] in Serum or Plasma 2.250 uIU/mL 0.450-4.50 0 [facility] ([facility], ) Erythrocyte sedimentation rate by 2H Westergren method 22 mm/hr 0-4 0 [facility] ([facility], ) Nuclear Ab [Titer] in Serum by Immunofluorescence Laboratory test res ult [facility] ([facility], ) <content>Negative <1:80</content>
<content>Borderline 1:80</content>
<content>Positive >1:80</content>
<content></content> Calcidiol [Mass/volume] in Serum or Plasma 31.6 ng/mL 30.0-100.0 [facility] ([facility] ) Vitamin D deficiency has been defined by the [place] of Medicine and an Endocrine Society practice guideline as a level of serum 25-OH vitamin D less than 20 ng/mL (1,2). The Endocrine Society went on to further define vitamin D insufficiency as a level between 21 and 29 ng/mL (2). 1. IOM ([place] of Medicine). 2010. Di etary reference intakes for calcium and D. [place]: The National Academies Press. 2. Franchesca MF, Gavi NC, Levy ramos VELASCO, et al. Evaluation, treatment, and prevention of vitamin D deficiency: an Endocrine Society clinical practice guideline. JCEM. 2011 Dec; 96(7):1911-30. Laboratory test finding (navigational concept) Laboratory test result [facility] ([facility]) ID Date Data Source [id number] 05/13/2020 01:47:00 PM EST [facility] ([facility]) Name Value Range Interpretation Code Description Data Ammy rce(s) Supporting Document(s) Creatinine [Mass/volume] in Serum or Plasma 0.98 mg/dL 0.57-1.00 [facility] ([facility]) Urea nitrogen [Mass/volume] in Serum or Plasma 19 mg/dL 6-24 [facility] ([facility]) Glucose [Mass/volume] in Serum or Plasma 95 mg/dL 65-99 [facility] ([facility]) Urea nitrogen/Creatinine [Mass Ratio] in Serum or Plasma 19 9 -23 [facility] ([facility]) eGFR If Africn Am 74 mL/min/1.73 [facility] ([facility]) eGFR If NonAfricn Am 64 mL/min/1.73 [facility] NT ([facility]) Sodium [Moles/volume] in Serum or Plasma 142 mmol/L 134-144 [facility] ([facility]) Chloride [Moles/volume] in Serum or Plasma 104 mmol/L 96-106 [facility] ([facility]) Potassium [Moles/volume] in Serum or Plasma 5.1 mmol/L 3.5-5.2 [facility] ([facility]) Calcium [Mass/volume] in Serum or Plasma 9.7 mg/dL 8.7-10.2 [facility] ([facility]) Protein [Mass/volume] in Serum or Plasma 6.7 g/dL 6.0-8.5 [facility] ([facility]) Carbon dioxide, total [Moles/volume] in Serum or Plasma 26 mmol/L 20 -29 [facility] ([facility]) Globulin [Mass/volume] in Serum by calculation 2.3 g/dL 1.5-4.5 [facility] ([facility]) Albumin/Globulin [Mass Ratio] in Serum or Plasma 1.9 1.2-2.2 [facility] ([facility]) Albumin [Mass/volume] in Serum or Plasma 4.4 g/dL 3.8-4.9 [facility] Bilirubin.total [Mass/volume] in Serum or Plasma Laboratory test result 0.0-1.2 [facility] Alkaline phosphatase [Enzymatic activity/volume] in Serum or Plasma 85 IU/L 39-117 [facility] Aspartate aminotransferase [Enzymatic activity/volume] in Serum or Plasma 24 IU/L 0-40 [facility] ([facility] ) Alanine aminotransferase [Enzymatic activity/volume] in Seru m or Plasma 27 IU/L 0-32 [facility] ([facility]) ID Date Data Source [id number] 05/13/2020 01:47:00 PM EST [facility] Name Value Range Interpretation Code Description Data Ammy rce(s) Supporting Document(s) Leukocytes [#/volume] in Blood by Automated count 10.4 x10E3/uL 3.4-1 0.8 [facility] ([facility]) Hematocrit [Volume Fraction] of Blood by Automated count 43.8 % 3 4.0-46.6 [facility] ([facility]) Hemoglobin [Mass/volume] in Blood 14.3 g/dL 11.1-15.9 [facility] ([facility]) Erythrocytes [#/volume] in Blood by Automated count 5.12 x10E6/uL 3.7 7-5.28 [facility] ([facility]) Erythrocyte mean corpuscular hemoglobin [Entitic mass] by Automated count 27.9 pg 26.6-33.0 [facility] ([facility] ) Erythrocyte mean corpuscular volume [Entitic volume] by Auto mated count 86 fL 79-97 [facility] Erythrocyte mean corpuscular hemoglobin concentration [Mass/volume] by Automated count 32.6 g/dL 31.5-35.7 [facility] ([facility] ) Erythrocyte distribution width [Ratio] by Automated count 13.5 % 11.7-15.4 [facility] ([facility]) Platelets [#/volume] in Blood by Automated count 354 x10E3/uL 150-450 [facility] Neutrophils/100 leukocytes in Blood by Automated count 59 % [facility] ([facility]) Monocytes/100 leukocytes in Blood by Automated count 7 % [facility] ([facility]) Eosinophils/100 leukocytes in Blood by Automated count 1 % [facility] ([facility]) Lymphocytes/100 leukocytes in Blood by Automated count 31 % [facility] ([facility]) Neutrophils [#/volume] in Blood by Automated count 6.2 x10E3/uL 1.4-7 .0 [facility] ([facility]) Basophils/100 leukocytes in Blood by Automated count 1 % [facility] ([facility]) Immature cells [#/volume] in Blood Laboratory test result [facility] ([facility]) Monocytes [#/volume] in Blood 0.8 x10E3/uL 0.1-0.9 [facility] ([facility]) Lymphocytes [#/volume] in Blood 3.2 x10E3/uL 0.7-3.1 [facility] ([facility]) Immature granulocytes/100 leukocytes in Blood by Automated count 1 % [facility] ([facility]) Basophils [#/volume] in Blood by Automated count 0.1 x10E3/uL 0.0-0.2 [facility] ([facility]) Eosinophils [#/volume] in Blood by Automated count 0.1 x10E3/uL 0.0-0 .4 [facility] ([facility]) Immature granulocytes [#/volume] in Blood by Automated count 0.1 x10E3/uL 0.0-0.1 [facility] ([facility]) Morphology [Interpretation] in Blood Narrative Laboratory test result [facility] ([facility]) Nucleated erythrocytes/100 leukocytes [Ratio] in Blood by Automated count Laboratory test result [facility] ([facility]) ID Date Data Source [id number] 05/13/2020 01:27:00 PM EST [facility] DATE OF EXAMINATION: 05/13/2020 10:20 EST MAMMO SCREEN BILAT WITH CAD HISTORY: Screening Based on the personal and family history information your patient supplied atthe time of imaging, her lifetime risk of breast cancer estimated date by theGarcíarer-Cuzick model is 9%. If anything changes in [...] analyzed through the latest version of the [facility] computer aid eddiagnosis system. The patient states [...] rce(s) Supporting Document(s) ID Date Data Source [id number] 03/02/2020 12:00:00 AM EDT [facility] Name Value Range Interpretation Code Description Data Ammy rce(s) Supporting Document(s) SARS coronavirus 2 RNA [facility] This lab was ordered by [employer] and rep orted by [facility]. ID Date Data Source [id number] 08/01/2019 06:27:00 PM EST [facility] Patient: MATTHEW CALVIN Observation Report - Physicians/Mid Levels [facility].VisitID: [id number] [place] [address] [phone], FRegistration Date/Time: 08/01/2019 12:44 Weight:99.7 kg (S). Height/Length:66 [...] Name Value Range Interpretation Code Description Data [facility](s) Supporting Document(s) ID Date Data Source [id number] 08/01/2019 01:22:00 PM EST [facility] DATE OF EXAMINATION: 08/01/2019 13:04 [...] Name Value Range Interpretation Code Description Data [facility] Supporting Document[facility]s) ID Date Data Source [id number] 08/01/2019 01:49:00 PM EST [facility] TSYSORDER [id number] Name Value Range Interpretation Code Description Data [facility](s) Supporting Document(s) GLUCOSE 92 mg/dL 74-106 [facility] BLOOD UREA NITROGEN 20 mg/dL 7-18 H [facility] ital CREATININE 1.1 mg/dL 0.6-1.0 H [...] [facility] GLOMERULAR FILTRATION RATE 51 mL/min [facility] GFR IS CALCULATED IN mL/min/1.73m2 YULIANA L FUNCTION: >90MILDLY DECREASED: 60-89MILDY TO MODERATELY DECREASED: 45-59 MODERATELY TO SEVERELY DECREASED: 30-44SEVERELY DECREASED: 15-29RENAL FAILURE: <15 AST 20 U/L 15-37 [facility] ALT 26 U/L 12-78 [facility] ALKALINE PHOSPHATASE 81 U/L 46-116 [facility] pital TOTAL BILIRUBIN 0.3 mg/dL 0.2-1.0 [facility] TOTAL PROTEIN 8.3 g/dl 6.4-8.2 H [facility] ALBUMIN 4.4 gm/dL 3.4-5.0 [facility] ID Date Data Source [id number] 08/01/2019 01:31:00 PM [facility] TSYSORDER [id number] Name Value Range Interpretation Code Description Data [facility](s) Supporting Document(s) WHITE BLOOD COUNT 11.5 K/mm3 4.0-10.0 H [facility] adrianne RED BLOOD COUNT 5.20 M/mm3 4.00-5.50 [facility] HEMOGLOBIN 14.7 gm/dL 12.0-16.0 [facility] HEMATOCRIT 45.4 % 36.0-48.8 [facility] MEAN CELL VOLUME 87.3 fl 80-96 [facility] MEAN CORPUSCULAR HEMOGLOBIN 28.3 pg 27.0-31.0 [facility] MEAN CORPUSCULAR HGB CONC 32.4 g/dl 32.0-36.0 [facility] RED CELL DISTRIBUTION WIDTH 13.5 % 10.0-14.5 [facility] PLATELET COUNT 350 K/mm3 172-450 [facility] MEAN PLATELET VOLUME 9.3 fl 9.0-13.0 [facility] GRAN % 58.3 % 50-80.0 [facility] IG% 0.7 % 0.0-0.2 [facility] LYMPH % 30.0 % 25.0-50.0 [facility] MONO % 9.1 % 2.0-10.0 [facility] EOS % 1.5 % 0-5.0 [facility] BASO % 0.4 % 0.0-2.0 [facility] GRAN # 6.7 K/mm3 2.0-8.00 [facility] IG# 0.1 K/mm3 0.0-0.2 [facility] LYMPH # 3.4 K/mm3 1.0-5.0 [facility] MONO # 1.0 K/mm3 0.10-1.20 [facility] EOS # 0.2 K/mm3 0.0-0.5 [facility] BASO # 0.1 K/mm3 0.0-0.2 [facility] ID Date Data Source [id number] 08/01/2019 01:31:00 PM EST [facility] TSYSORDER [id number] Name Value Range Interpretation Code Description Data [...] EST Former Smoker completed Former Smoker eCW1 ([facility]) Smoking 07/08/2020 12:00:00 AM EST Former Smoker completed Former Smoker eCW1 ([facility]) Smoking 07/08/2020 12:00:00 AM EST Former Smoker completed Former Smoker eCW1 ([facility]) Smoking 07/08/2020 12:00:00 AM EST Former Smoker completed Former Smoker eCW1 ([facility]) Smoking 07/08/2020 12:00:00 AM EST Former Smoker completed Former Smoker eCW1 ([facility]) Smoking 12/24/2019 12:00:00 AM EDT Former Smoker completed Former Smoker eCW1 ([facility]) Smoking 12/24/2019 12:00:00 AM EDT Former Smoker completed Former Smoker eCW1 ([facility]) Smoking 12/24/2019 12:00:00 AM EDT Former Smoker completed Former Smoker eCW1 ([facility]) Smoking 12/24/2019 12:00:00 AM EDT Former Smoker completed Former Smoker eCW1 ([facility]) Smoking 12/24/2019 12:00:00 AM EDT Former Smoker completed Former Smoker eCW1 ([facility]) Smoking 12/24/2019 12:00:00 AM EDT Former Smoker completed Former Smoker eCW1 ([facility]) Smoking 12/24/2019 12:00:00 AM EDT Former Smoker completed Former Smoker eCW1 ([facility]) Smoking 12/24/2019 12:00:00 AM EDT Former Smoker completed Former Smoker eCW1 ([facility]) Smoking 12/24/2019 12:00:00 AM EDT Former Smoker completed Former Smoker eCW1 ([facility]) Smoking 12/24/2019 12:00:00 AM EDT Former Smoker completed Former Smoker eCW1 ([facility]) Smoking 12/24/2019 12:00:00 AM EDT Former Smoker completed Former Smoker eCW1 ([facility]) Smoking 12/24/2019 12:00:00 AM EDT Former Smoker completed Former Smoker eCW1 ([facility]) Smoking 08/08/2019 12:00:00 AM EST Former Smoker completed Former Smoker eCW1 ([facility]) Smoking 08/08/2019 12:00:00 AM EST Former Smoker completed Former Smoker eCW1 ([facility]) Vital Signs ID Date Data Source [id number] Name Value Range Interpretation Code Description Data Source(s) Diastolic blood pressure 74 mm[Hg] 74 mm[Hg] eCW1 ([facility]) Systolic blood pressure 118 mm[Hg] 118 mm[Hg] e CW1 ([facility]) Body temperature 97.6 [degF] 97.6 [degF] eCW1 ( [facility]) Respiratory rate 18 /min 18 /min eCW1 ([facility]) Heart rate 89 /min 89 /min eCW1 ([facility]) Body mass index (BMI) [Ratio] 36.15 kg/m2 36.15 kg/m2 eCW1 ([facility]) Body height 66 [in_i] 66 [in_i] eCW1 ([facility]) Body weight 101.6 kg 101.6 kg eCW1 ([facility]) Body weight 224 [lb_av] 224 [lb_av] eCW1 ([facility]) Body mass index (BMI) [Ratio] 35.5 kg/m2 35.5 k g/m2 MEDENT ([facility] ) Body weight 220.00 [lb_av] 220.00 [lb_av] MEDEN T ([facility] ) Body height 66 [in_i] 66 [in_i] MEDENT ([facility]) 5'6" Body temperature 96.8 [degF] 96.8 [degF] MEDENT ([facility] ) Diastolic blood pressure 81 mm[Hg] 81 mm[Hg] MEDENT ([facility] Systolic blood pressure 118 mm[Hg] 118 mm[Hg] EDENT ([facility] Body weight 219.00 [lb_av] 219.00 [lb_av] MEDEN T ([facility] Body height 66 [in_i] 66 [in_i] MEDENT ([facility] 5'6" Body mass index (BMI) [Ratio] 35.3 kg/m2 35.3 k g/m2 MEDENT ([facility] Heart rate 92 /min 92 /min MEDENT ([facility] Diastolic blood pressure 86 mm[Hg] 86 mm[Hg] eCW1 ([facility]) Systolic blood pressure 127 mm[Hg] 127 mm[Hg] e CW1 ([facility]) Body temperature 97.1 [degF] 97.1 [degF] eCW1 ( [facility]) Respiratory rate 18 /min 18 /min eCW1 ([facility]) Heart rate 88 /min 88 /min eCW1 ([facility]) Body mass index (BMI) [Ratio] 35.67 kg/m2 35.67 kg/m2 eCW1 ([facility]) Body height 66 [in_i] 66 [in_i] eCW1 ([facility]) Body weight 221 [lb_av] 221 [lb_av] eCW1 ([facility]) Diastolic blood pressure 81 mm[Hg] 81 mm[Hg] eCW1 ([facility]) Systolic blood pressure 118 mm[Hg] 118 mm[Hg] e CW1 ([facility]) Body temperature [degF] eCW1 ([facility]) Respiratory rate 18 /min 18 /min eCW1 ([facility]) Heart rate 92 /min 92 /min eCW1 ([facility]) Body mass index (BMI) [Ratio] 35.34 kg/m2 35.34 kg/m2 eCW1 ([facility]) Body height 66 [in_us] 66 [in_us] eCW1 ([facility]) Body weight Measured 219 [lb_av] 219 [lb_av] eC W1 ([facility]) ID Date Data Source [id number] 07/17/2020 05:45:49 PM [facility] Name Value Range Interpretation Code Description Data Source(s) TRANSFER FROM [facility] Patient Treatment Plan of Care Planned Activity Planned Date Details Description Data Source (s) Ibuprofen 600 MG Oral Tablet 12/24/2019 12:00:00 AM EDT eCW1 ([facility]) Ibuprofen 600 MG Oral Tablet 12/24/2019 12:00:00 AM EDT eCW1 ([facility]) Ibuprofen 600 MG Oral Tablet 12/24/2019 12:00:00 AM EDT eCW1 ([facility]) Ibuprofen 600 MG Oral Tablet 12/24/2019 12:00:00 AM EDT eCW1 ([facility]) Ibuprofen 600 MG Oral Tablet 12/24/2019 12:00:00 AM EDT eCW1 ([facility]) Ibuprofen 600 MG Oral Tablet 12/24/2019 12:00:00 AM EDT eCW1 ([facility]) Ibuprofen 600 MG Oral Tablet 12/24/2019 12:00:00 AM EDT eCW1 ([facility]) Ibuprofen 600 MG Oral Tablet 12/24/2019 12:00:00 AM EDT eCW1 ([facility]) Ibuprofen 600 MG Oral Tablet 12/24/2019 12:00:00 AM EDT eCW1 ([facility]) Ibuprofen 600 MG Oral Tablet 12/24/2019 12:00:00 AM EDT eCW1 ([facility]) Ibuprofen 600 MG Oral Tablet 12/24/2019 12:00:00 AM EDT eCW1 ([facility]) Ibuprofen 600 MG Oral Tablet 12/24/2019 12:00:00 AM EDT eCW1 ([facility]) lubiprostone 0.024 MG Oral Capsule [Amitiza] 11/29/2019 12:00:00 AM EDT eCW1 ([facility]) lubiprostone 0.024 MG Oral Capsule [Amitiza] 11/29/2019 12:00:00 AM EDT eCW1 ([facility]) lubiprostone 0.024 MG Oral Capsule [Amitiza] 11/29/2019 12:00:00 AM EDT eCW1 ([facility]) lubiprostone 0.024 MG Oral Capsule [Amitiza] 11/29/2019 12:00:00 AM EDT eCW1 ([facility]) lubiprostone 0.024 MG Oral Capsule [Amitiza] 11/29/2019 12:00:00 AM EDT eCW1 ([facility]) lubiprostone 0.024 MG Oral Capsule [Amitiza] 11/29/2019 12:00:00 AM EDT eCW1 ([facility]) lubiprostone 0.024 MG Oral Capsule [Amitiza] 11/29/2019 12:00:00 AM EDT eCW1 ([facility]) lubiprostone 0.024 MG Oral Capsule [Amitiza] 11/29/2019 12:00:00 AM EDT eCW1 ([facility]) lubiprostone 0.024 MG Oral Capsule [Amitiza] 11/29/2019 12:00:00 AM EDT eCW1 ([facility]) lubiprostone 0.024 MG Oral Capsule [Amitiza] 11/29/2019 12:00:00 AM EDT eCW1 ([facility]) lubiprostone 0.024 MG Oral Capsule [Amitiza] 11/29/2019 12:00:00 AM EDT eCW1 ([facility]) lubiprostone 0.024 MG Oral Capsule [Amitiza] 11/29/2019 12:00:00 AM EDT eCW1 ([facility]) lubiprostone 0.024 MG Oral Capsule [Amitiza] 11/29/2019 12:00:00 AM EDT eCW1 ([facility]) Nystatin 100 UNT/MG Topical Powder 06/24/2019 12:00:00 AM EST eCW1 ([facility])
[2020-08-01] MEDS ORDERED: LEXA1TAB2 PO (00:48)
[2020-08-01] MEDS ORDERED: LINZ290C PO (00:49)
[2020-08-01] MEDS ORDERED: NAPR-885 PO (00:49)
[2020-08-01] MEDS ORDERED: MELA3CAP2 PO (00:49)
[2020-08-01] MEDS ORDERED: oxyCODONE 5MG TAB PO PRN (02:15)
[2020-08-01 02:40] LABS: HEMATOCRIT 32.2 % (36.0-47.0); HEMOGLOBIN 9.8 g/dl (12.0-15.5); MEAN CORPUSCULAR HEMOGLOBIN 26.5 pg (27.0-33.0); MEAN CORPUSCULAR HGB CONC 30.4 g/dl (32.0-36.5); PLATELET COUNT, AUTOMATED 576 10^3/uL (150-450); WHITE BLOOD COUNT 15.4 10^3/uL (4.0-10.0)
[2020-08-01 02:49] LABS: INR 0.99; PROTHROMBIN TIME 13.3 SECONDS (12.5-14.3)
[2020-08-01 02:50] LABS: PARTIAL THROMBOPLASTIN TIME 28.2 SECONDS (24.2-38.5)
[2020-08-01] MEDS: RAMELTEON 8 MG TAB (ROZEREM) JT SCH ×2 (02:53→20:25)
[2020-08-01 03:04] LABS: ALBUMIN 2.6 GM/DL (3.2-5.2); ALT/SGPT 33 U/L (12-78); BILIRUBIN,TOTAL 0.4 MG/DL (0.2-1.0); BLOOD UREA NITROGEN 23 MG/DL (7-18); CALCIUM LEVEL 8.8 MG/DL (8.5-10.1); CARBON DIOXIDE LEVEL 26 MEQ/L (21-32); CHLORIDE LEVEL 106 MEQ/L (98-107); GLOMERULAR FILTRATION RATE > 60.0 (>51); GLUCOSE, FASTING 97 MG/DL (70-100); LIPASE 331 U/L (73-393); POTASSIUM SERUM 4.1 MEQ/L (3.5-5.1); SODIUM LEVEL 141 MEQ/L (136-145); TOTAL PROTEIN 6.5 GM/DL (6.4-8.2)
--- NOTE | 2020-08-01 04:56 | HPEPDOC ---
General Date of Admission Jul 31, 2020 at 23:27 Date of Service: Aug 01, 2020 Chief Complaint The patient is a 59-year-old female admitted with a reason for visit of Small Bowel Obstruction,Pancreatitis. Source: Patient History of Present Illness Mrs. Calvin is a 59-year-old female with multiple abdominal surgeries who was transferred back to [facility] after being treated up at [facility]. On 07/17/2020, patient was admitted to [facility] for acute pancreatitis and small bowel obstruction, but then was transferred to [facility] for higher level of care. She was initially treated conservatively, but failed conservative measures and on 07/29/2020 patient went to the OR for acute pancreatitis with hemorrhage, partial gastric outlet obstruction, and flat lesions in the duodenal bulb. They took a biopsy of duodenal lesions. They placed a gastrojejunal ostomy tube. They had planned for her to receive tube feeds through the J-tube and drain with gravity through the G-tube. She was put on Peptamen AF (1.2 kcal) for a goal continuous rate of 70 mL/hr. G tube to gravity bag. They will need volume replacement base on output from G tube. Afterwards, patient did not want to be discharged home. She requested to be sent back to [facility]. Patient arrived here early in the morning. Denies any fever or chills, chest pain, or dyspnea. She still had some abdominal pain which may be from her abdominal surgery. Abdominal pain is diffuse and tender to deep palpation. It is an achy pain. Otherwise abdomen is soft. Site around PEG J-tube does not appear to be infected, but still lightly bloody. Patient will be admitted for further medical management. Home Medications Scheduled Atorvastatin Calcium (Atorvastatin Calcium) 40 Mg Tab, 40 MG PO DAILY, (Reported) Ergocalciferol (Vitamin D2) (Vitamin D2) 50,000 Units Cap, 50,000 UNITS PO QWEEK, (Reported) SATURDAYS Escitalopram Oxalate (Lexapro) 20 Mg Tablet, 20 MG PO DAILY, (Reported) Fenofibrate (Fenofibrate) 54 Mg Tab, 54 MG PO DAILY, (Reported) Linaclotide (Linzess) 290 Mcg Capsule, 290 MCG PO DAILY, (Reported) Magnesium Oxide (Magnesium Oxide) 400 Mg Tablet, 400 MG PO DAILY, (Reported) Nortriptyline Hcl (Pamelor) 25 Mg Cap, 25 MG PO DAILY, (Reported) Pantoprazole Sodium (Pantoprazole Sodium) 40 Mg Tab, 40 MG PO DAILY, (Reported) Trospium Chloride (Trospium Chloride) 20 Mg Tablet, 20 MG PO BID, (Reported) Zonisamide (Zonisamide) 100 Mg Cap, 100 MG PO BID, (Reported) Scheduled PRN Melatonin (Melatonin) 3 Mg Capsule, 3 MG PO QHS PRN for SLEEP, (Reported) Naproxen (Naproxen) 500 Mg Tablet, 500 MG PO BID PRN for PAIN, (Reported) Allergies Coded Allergies: TAPE (Verified Allergy, Mild, PLASTIC TAPE = RASH, 06/08/18) Past Medical History Medical History 1. Low back pain 2. Degenerative disc disease 3. Bilateral carpal tunnel 4. GERD 5. Hiatal hernia 6. Chest incontinence 7. Allergic rhinitis 8. Gastroparesis 9. Diverticulitis 10. Rotator cuff tear of the left shoulder Surgical History 1. Hernia repair 2. Pancreatitis from gallbladder surgery in 1982 3. Acid reflux surgery followed by lacerated liver and hole in stomach in 1996 4. Carpal tunnel on right wrist 5. Colonoscopy and upper endoscopy in 2014 6. Tubal ligation 7. Hernia repair 8. Injection left shoulder for rotator cuff tear 9. EGD with biopsy of duodenal lesion and percutaneous endoscopic gastrojejunal tube placement on 07/29/2020 at [facility] Family History Father: , [place] Mother: , emphysema Social History * Smoker: former Smoker Alcohol: Denies Drugs: denies A-FIB/CHADSVASC A-FIB History Current/History of A-Fib/PAF?: No Review of Systems Constitutional: Denies: Chills, Fever Eyes: Denies: Vision change ENT: Denies: Sore Throat Skin: Denies: Rash Pulmonary: Denies: Dyspnea, Cough Cardiovascular: Denies: Chest Pain Gastrointestinal: Reports: Abdominal Pain Genitourinary: Denies: Dysuria Hematologic: Reports: Bruising Neurological: Reports: Other Symptoms (paresthesias) Psych: Reports: Anxiety, Depression Physical Examination General Exam: Positive: Alert, Cooperative Eye Exam: Positive: EOMI; Negative: Sclera icteric ENT Exam: Positive: Atraumatic Neck Exam: Positive: Supple Chest Exam: Positive: Clear to auscultation; Negative: Rales, Rhonchi, Wheezing Heart Exam: Positive: Rate Normal, Regular Rhythm Abdomen Exam: Positive: Normal bowel sounds, Soft, Tenderness (to deep palpation) Extremity Exam: Positive: Edema (bilateral pitting) Neuro Exam: Positive: Cranial Nerves 3-12 NL Psych Exam: Positive: Mental status NL, Anxiety Vital Signs Vital Signs Date Time Temp Pulse Resp B/P (MAP) Pulse Ox O2 Delivery O2 Flow Rate FiO2 07/31/20 23:27 98.2 82 18 108/41 (63) 96 Room Air Laboratory Data Labs 24H Laboratory Tests 2 08/01/20 02:23: Nucleated Red Blood Cells % (auto) 0.2H, Prothrombin Time 13.3, Prothromb Time International Ratio 0.99, Activated Partial Thromboplast Time 28.2, Anion Gap 9, Glomerular Filtration Rate > 60.0, Calcium Level 8.8, Total Bilirubin 0.4, Aspar parisi Amino Transf (AST/SGOT) 39H, Alanine Aminotransferase (ALT/SGPT) 33, Alkaline Phosphatase 118H, Total Protein 6.5, Albumin 2.6L, Albumin/Globulin Ratio 0.7L, Lipase 331 CBC/BMP Laboratory Tests 08/01/20 02:23 Assessment/Plan Mrs. Calvin is a 59-year-old female with multiple abdominal surgeries who was transferred back to [facility] after being treated up at [facility]. She is treated for acute pancreatitis with hemorrhage and a partial gastric outlet obstruction. They put in a J-tube for tube feeds and G- tube for output on 07/29/2020. She was transferred here for further medical management. Plan / VTE VTE Prophylaxis Ordered?: Yes Plan Plan 1. Acute pancreatitis with hemorrhage and partial gastric outlet obstruction -Went to surgery on 07/29/2020. Has PEG J tube. -Tube feeds through J tube and output through G tube -Per discharge instructions, she will need to "continue tube feeds through your J tube until your acute pancreatitis improves due to the acute pancreatitis putting pressure on your intestines." -Suggested tube feed is Peptamen AF (1.2kcal) continuous at a rate of 70mL/hr. Peptamen is a peptide base tube feed -We do not have an alternative to Peptamen as a peptide base tube feed. May need to touch base with general surgery if tube feeds at needed as her Lipase has resolved -If need to continue tube feeds may need to touch base with dietary/pharmacy about obtaining either Peptamen or alternative 2. GERD -Cannot put PPI in J-tube -Starting famotidine 3. Dyslipidemia -Continue atorvastatin or fenofibrate 4. DVT ppx -SCD and TEDs VASQUEZ GOMEZ DO Aug 01, 2020 04:56
[2020-08-01 06:00] VITALS: BP 138/79
[2020-08-01] MEDS: MAGNESIUM OXIDE 400MG TAB (MAG-OX) JT SCH (09:07)
[2020-08-01] MEDS: ATORVASTATIN 20 MG TAB JT SCH (09:07)
[2020-08-01] MEDS: ZONISAMIDE 100 MG CAP (ZONEGRAN) JT SCH ×2 (09:07→20:24)
[2020-08-01] MEDS: FAMOTIDINE 20 MG TAB JT SCH (09:07)
[2020-08-01] MEDS: FENOFIBRATE 48 MG TAB (TRICOR) JT SCH (09:08)
[2020-08-01 10:09] LABS: AMYLASE 121 U/L (25-115); LIPASE 345 U/L (73-393)
[2020-08-01] MEDS: oxyCODONE 5MG TAB JT PRN ×2 (13:10→18:31)
[2020-08-01 14:00] VITALS: BP 144/82
--- NOTE | 2020-08-01 18:42 | IPNPDOC ---
Date Seen The patient was seen on 08/01/20. Progress Note SUBJECTIVE: 59 yo F with a hx of SBO, severe pancreatitis, first admitted to [facility] on 07/17/20, transfered to [facility] for higher level of care. Severe pancreatitis with hemorrhage, partial gastric outlet obstruction and flat lesions in duodenal bulb, with biopsies. A gastrojejunal ostomy tube was placed. She was fed through the J tube and drained with gravity through the G tube. On chart review, CTA abdomen showed portal vein thrombosis. No anticoagulation was started. I was unable to find justification for non treatment, and will assume that it was held due to retroperitoneal hemorrhage/hematoma consequent to hemorrhagic pancreatitis approx 10 cm in diameter, which required 2 units of pRBC to be transfused. Patient reports no worsening of lower back pain, abdo pain, CP, n/v/d, fevers or chills. She is good spirits. OBJECTIVE PHYSICAL EXAMINATION: VITAL SIGNS: please see below General: NAD, comfortable HEENT: PERRLA, EOMI, sclerae clear Neck: supple, normal ROM, no JVD Respiratory: lungs CTAB, no wheeze, no rales, no crackles CVS: RRR, normal S1, S2, no murmurs Abdo: J tube in placed, dressings intact, soft, no masses, no hepatosplenomegaly, BS+, no rebound tenderness Extremities: no edema, pulses 2+ MSK: no joint deformities, normal ROM Neuro: no focal neuro deficits, moving all 4 extremities, CN2-12 intact. Strength 5/5 in all 4 extremities. No nystagmus. Psych: calm, cooperative, AAO x 3 LABORATORY DATA, IMAGING STUDIES, MICROBIOLOGY: Please see below. DVT prophylaxis ordered?: heparin ggt ASSESSMENT AND PLAN: PROBLEMS: Plan 1. Acute pancreatitis with hemorrhage and partial gastric outlet obstruction -Went to surgery on 07/29/2020. Has PEG J tube. -Tube feeds through J tube and output through G tube -Per discharge instructions, she will need to "continue tube feeds through your J tube until your acute pancreatitis improves due to the acute pancreatitis putting pressure on your intestines." -Suggested tube feed is Peptamen AF (1.2kcal) continuous at a rate of 70mL/hr. Peptamen is a peptide base tube feed -We do not have an alternative to Peptamen as a peptide base tube feed. May need to touch base with general surgery if tube feeds at needed as her Lipase has resolved -If need to continue tube feeds may need to touch base with dietary/pharmacy about obtaining either Peptamen or alternative Portal vein thrombosis - noted on CTA abdo 07/24/20? verify in records - discussed risks with patient of bleeding vs risks of portal vein HTN, mesenteric ischemia and infarction - patient opted for - started on heparin ggt - if hgb stable, transition to noac - trend hgb 2. GERD -Cannot put PPI in J-tube -Starting famotidine 3. Dyslipidemia -Continue atorvastatin or fenofibrate 4. DVT ppx -SCD and TEDs VS, I&O, 24H, Fishbone Vital Signs/I&O Vital Signs Date Time Temp Pulse Resp B/P (MAP) Pulse Ox O2 Delivery O2 Flow Rate FiO2 08/01/20 14:00 97.7 82 19 144/82 (102) 96 Room Air I&O- Last 24 Hours up to 6 AM 08/01/20 06:00 Intake Total 300 ml Output Total 1750 ml Balance -1450 ml Laboratory Data 24H LABS Laboratory Tests 2 08/01/20 02:23: Nucleated Red Blood Cells % (auto) 0.2H, Prothrombin Time 13.3, Prothromb Time International Ratio 0.99, Activated Partial Thromboplast Time 28.2, Anion Gap 9, Glomerular Filtration Rate > 60.0, Calcium Level 8.8, Total Bilirubin 0.4, Aspartate Amino Transf (AST/SGOT) 39H, Alanine Aminotransferase (ALT/SGPT) 33, Alkaline Phosphatase 118H, Total Protein 6.5, Albumin 2.6L, Albumin/Globulin Ratio 0.7L, Lipase 331 08/01/20 09:08: Lipase 345, Lactic Acid Level 1.1, Amylase Level 121H CBC/BMP Laboratory Tests 08/01/20 02:23 LINDSEY ROB MD Aug 01, 2020 18:42
[2020-08-01] MEDS ORDERED: HEPARIN SOD (PORCINE) 5000UNITS/ML 1ML VIAL/SYRINGE IV PRN (19:00)
[2020-08-01] MEDS ORDERED: HEPARIN DRIP 25,000 UNITS in IV 1 EA IV SCH (19:00)
[2020-08-01 19:52] LABS: HEMATOCRIT 34.9 % (36.0-47.0); HEMOGLOBIN 10.8 g/dl (12.0-15.5); MEAN CORPUSCULAR HGB CONC 30.9 g/dl (32.0-36.5); MEAN CORPUSCULAR VOLUME 87.3 fl (80.0-96.0); PLATELET COUNT, AUTOMATED 609 10^3/uL (150-450); WHITE BLOOD COUNT 16.1 10^3/uL (4.0-10.0)
[2020-08-01 20:05] LABS: ATYPICAL LYMPH 1 % (0-5); EOSINOPHILS 2 % (0-3); LYMPHOCYTES 14 % (16-44); METAMYELOCYTES 1 % (0-0); MONOCYTES 9 % (0-5); MYELOCYTES 2 % (0-0); NEUTROPHILS 71 % (28-66); PLATELET ESTIMATE INCREASED (NORMAL)
[2020-08-01 20:06] LABS: HYPOCHROMASIA 1+
[2020-08-01 22:00] VITALS: BP 137/76
[2020-08-02] MEDS: oxyCODONE 5MG TAB JT PRN ×5 (02:03→22:22)
[2020-08-02 06:00] VITALS: BP 135/74
[2020-08-02 06:20] LABS: HEMATOCRIT 36.1 % (36.0-47.0); HEMOGLOBIN 10.9 g/dl (12.0-15.5); MEAN CORPUSCULAR HEMOGLOBIN 26.3 pg (27.0-33.0); MEAN CORPUSCULAR HGB CONC 30.2 g/dl (32.0-36.5); MEAN CORPUSCULAR VOLUME 87.2 fl (80.0-96.0); PLATELET COUNT, AUTOMATED 659 10^3/uL (150-450); RED BLOOD COUNT 4.14 10^6/uL (4.00-5.40)
[2020-08-02 06:23] LABS: WHITE BLOOD COUNT 16.7 10^3/uL (4.0-10.0)
[2020-08-02 06:46] LABS: ALBUMIN 2.8 GM/DL (3.2-5.2); ALT/SGPT 32 U/L (12-78); BILIRUBIN,TOTAL 0.2 MG/DL (0.2-1.0); BLOOD UREA NITROGEN 29 MG/DL (7-18); CALCIUM LEVEL 9.2 MG/DL (8.5-10.1); CARBON DIOXIDE LEVEL 22 MEQ/L (21-32); CHLORIDE LEVEL 105 MEQ/L (98-107); CREATININE FOR GFR 0.74 MG/DL (0.55-1.30); GLOMERULAR FILTRATION RATE > 60.0 (>51); GLUCOSE, FASTING 122 MG/DL (70-100); MAGNESIUM LEVEL 2.3 MG/DL (1.8-2.4); POTASSIUM SERUM 4.6 MEQ/L (3.5-5.1); SODIUM LEVEL 137 MEQ/L (136-145); TOTAL PROTEIN 7.4 GM/DL (6.4-8.2)
[2020-08-02 06:56] LABS: ATYPICAL LYMPH 1 % (0-5); EOSINOPHILS 2 % (0-3); LYMPHOCYTES 14 % (16-44); METAMYELOCYTES 2 % (0-0); MONOCYTES 9 % (0-5); MYELOCYTES 3 % (0-0); NEUTROPHILS 67 % (28-66)
[2020-08-02 06:57] LABS: PLATELET ESTIMATE INCREASED (NORMAL)
[2020-08-02 06:58] LABS: ANISOCYTOSIS 1+
[2020-08-02] MEDS ORDERED: APIXABAN 5 MG TAB (ELIQUIS) PO SCH (09:00)
[2020-08-02] MEDS: FENOFIBRATE 48 MG TAB (TRICOR) JT SCH (10:02)
[2020-08-02] MEDS: MAGNESIUM OXIDE 400MG TAB (MAG-OX) JT SCH (10:02)
[2020-08-02] MEDS: FAMOTIDINE 20 MG TAB JT SCH (10:02)
[2020-08-02] MEDS: ZONISAMIDE 100 MG CAP (ZONEGRAN) JT SCH ×2 (10:02→21:20)
[2020-08-02] MEDS: ENOXAPARIN 100MG/1ML SYRINGE (J1650 PER 10MG) SC SCH ×2 (10:03→21:20)
[2020-08-02] MEDS: ATORVASTATIN 20 MG TAB JT SCH (10:03)
[2020-08-02] MEDS: ACETAMINOPHEN 325 MG/10.15 ML UDC JT PRN (10:04)
[2020-08-02] MEDS ORDERED: WARFARIN SOD 5MG TAB JT ONE (11:00)
[2020-08-02] MEDS ORDERED: ISOVUE-370 76% 100ML VIAL As Ordered ONE (12:05)
--- NOTE | 2020-08-02 13:24 | IPNPDOC ---
Date Seen The patient was seen on 08/02/20. Progress Note SUBJECTIVE: 59 yo F with a hx of SBO, severe pancreatitis, first admitted to [facility] on 07/17/20, transfered to [facility] for higher level of care. Severe pancreatitis with hemorrhage, partial gastric outlet obstruction and flat lesions in duodenal bulb, with biopsies. A gastrojejunal ostomy tube was placed. She was fed through the J tube and drained with gravity through the G tube. On c alvarado review, CTA abdomen showed portal vein thrombosis. No anticoagulation was started. I was unable to find justification for non treatment, and will assume that it was held due to retroperitoneal hemorrhage/hematoma consequent to hemorrhagic pancreatitis approx 10 cm in diameter, which required 2 units of pRBC to be transfused. on 08/02/20, patient was started on heparin GGT with a stable hgb 12 hours later and transitioned to therapeutic lovenox. Plan was to bridge to warfarin, but due to patient's persistent back pain, ordered repeat CT abdo pelvis wo and w contrast. This morning patient is doing well. Back pain persists. Denies bleeding. Has not had a BM since gastrojejunal tube placement. Denies worsening abdominal pain. No nausea or vomiting. Gastric lumen putting out bilious contents. Tube feeds ordered, tolerating well so far. Afebrile. OBJECTIVE PHYSICAL EXAMINATION: VITAL SIGNS: please see below General: NAD, comfortable HEENT: PERRLA, EOMI, sclerae clear Neck: supple, normal ROM, no JVD Respiratory: lungs CTAB, no wheeze, no rales, no crackles CVS: RRR, normal S1, S2, no murmurs Abdo: J tube in placed, dressings intact, soft, no masses, no hepatosplenomegaly, BS+, no rebound tenderness Extremities: no edema, pulses 2+ MSK: no joint deformities, normal ROM Neuro: no focal neuro deficits, moving all 4 extremities, CN2-12 intact. Strength 5/5 in all 4 extremities. No nystagmus. Psych: calm, cooperative, AAO x 3 LABORATORY DATA, IMAGING STUDIES, MICROBIOLOGY: Please see below. DVT prophylaxis ordered?: SCDs. Teds. Lovenox therapeutic. ASSESSMENT AND PLAN: PROBLEMS: Plan Acute pancreatitis with hemorrhage and partial gastric outlet obstruction -Went to surgery on 07/29/2020. Has gastrojejunal tube ostomy tube. - repeat Lipase normalized -Tube feeds through J tube and output through G tube -Per discharge instructions, she will need to "continue tube feeds through your J tube until your acute pancreatitis improves due to the acute pancreatitis putting pressure on your intestines." -Suggested tube feed is Peptamen AF (1.2kcal) continuous at a rate of 70mL/hr. Peptamen is a peptide base tube feed -We do not have an alternative to Peptamen as a peptide base tube feed. - Dietary recommending Vital AF 1.2 running at 70 ml/Hr, with 180 mg flushes q4h. Hold tube feeds if gastric residuals are > 150 cc - insignificant gastric residuals per RN. - d/w Dr. Henry, tube will likely remain in situ for 2-3 weeks, at which point if patient is tolerating PO diet, may be removed. Will provide appropriate follow up - Needs PCP. Portal vein thrombosis - noted on CTA abdo 07/24/20? verify in records - discussed risks with patient of bleeding vs risks of portal vein HTN, mesenteric ischemia and infarction - patient opted for anticoagulation with close monitoring - started on heparin ggt, transitioned to Lovenox as Hgb stable. - will check CT abdo pelvis wo and w IV contrast as patient has persistent back pain - consideration for NOAC, but in the event of a bleed would prefer warfarin for reversability ease - patient understands risks and makes informed decision to proceed with AC. GERD -Cannot put PPI in J-tube -Starting famotidine Dyslipidemia -Continue atorvastatin or fenofibrate DVT ppx -SCD and TEDs VS, I&O, 24H, Fishbone Vital Signs/I&O Vital Signs Date Time Temp Pulse Resp B/P (MAP) Pulse Ox O2 Delivery O2 Flow Rate FiO2 08/02/20 08:52 20 08/02/20 06:00 97.8 85 135/74 (94) 97 Room Air I&O- Last 24 Hours up to 6 AM 08/02/20 06:00 Intake Total 2230 ml Output Total 5700 ml Balance -3470 ml Laboratory Data 24H LABS Laboratory Tests 2 08/01/20 19:39: Immature Granulocyte % (Auto) , Neutrophils (%) (Auto) , Nucleated Red Blood Cells % (auto) 0.2H, Neutrophils 71H, Lymphocytes (Manual) 14L, Monocytes (Manual) 9H, Eosinophils (Manual) 2, Metamyelocytes 1H, Myelocytes 2H, Atypical Lymphocytes 1, Hypochromasia 1+, Platelet Estimate INCREASED, Activated Partial Thromboplast Time 27.9 08/02/20 02:37: Activated Partial Thromboplast Time 56.8H 08/02/20 05:28: Immature Granulocyte % (Auto) , Neutrophils (%) (Auto) , Nucleated Red Blood Cells % (auto) 0.2H, Neutrophils 67H, Lymphocytes (Manual) 14L, Monocytes (Manual) 9H, Eosinophils (Manual) 2, Metamyelocytes 2H, Myelocytes 3H, Atypical Lymphocytes 1, Platelet Estimate INCREASED, Band Neutrophils 2, Anisocytosis 1+, Anion Gap 10, Glomerular Filtration Rate > 60.0, Calcium Level 9.2, Magnesium Level 2.3, Total Bilirubin 0.2, Aspartate Amino Transf (AST/SGOT) 64H, Alanine Aminotransferase (ALT/SGPT) 32, Alkaline Phosphatase 141H, Total Protein 7.4, Albumin 2.8L, Albumin/Globulin Ratio 0.6L 08/02/20 09:04: Activated Partial Thromboplast Time 64.0H CBC/BMP Laboratory Tests 08/01/20 19:39 08/02/20 05:28 LINDSEY ROB MD Aug 02, 2020 13:24
--- NOTE | 2020-08-02 13:29 | REP ---
INDICATION: Dynamic Liver protocol. Portal Vein Thrombos. RetroP bleed, none pancreatitis.. COMPARISON: CT 07/17/2020, report of outside CT at [facility] on 07/21/2020. TECHNIQUE: CT abdomen and pelvis performed without IV contrast. There is a be some residual contrast in colon and this may be related to previous CTs. I do not see definite sign of colitis or diverticulitis. Lung window review shows no perforation or free air. There are a couple of air bubbles in subcutaneous fat in the right mid abdomen felt to represent site of abdominal wall injection. Bones are unchanged from the previous CT. See no generalized ascites and only some mild thickening of the lateral conal fascia on the right. In the pelvis there was no ascites. CT abdomen pelvis performed with IV contrast as well, following intravenous administration of 100 cc of Isovue 370. Arteriovenous and delayed phase images were performed. Sagittal, coronal and 3D MIP reconstruction images are performed. FINDINGS: CT abdomen: Some minor subsegmental atelectatic change in the lower lobes posteriorly noted without effusion or dense consolidation. Heart is not enlarged there is no pericardial thickening or effusion. Study again shows a hypodense focus about 3.6 cm posterior aspect of the right hepatic lobe at the dome of the diaphragm this is seen on the previous contrast study and in examination in 2018, all unchanged and therefore benign nonaggressive finding. I do not see definite fatty infiltration of the liver. Mild hepatomegaly with 18 cm vertical diameter the right lobe of the liver the midclavicular line. No splenomegaly there is no ascites. Clips from prior cholecystectomy are noted. There is distention of the common bile duct and proximal intrahepatic ducts similar to previous study. The venous phase imaging shows the SMV, splenic vein, portal vein at the abran hepatis and in the right and left portal veins to be grossly intact. There is 1 small focus of hypodensity in the main portal vein near the bifurcation that may reflect small residual clot from portal venous thrombosis. It measures about 5 mm. There is no longer any gastric distension. There is a gastrojejunostomy tube through the anterior abdominal wall terminating past the ligament of Treitz in the left upper quadrant within the proximal jejunum. Somewhat hyperdense collection adjacent to the head and uncinate process of the pancreas and posterior to them is again seen. It measures 12.4 x 7.3 x 4.5 cm. On the previous study was 13.6 x 10.5 x 7.2 cm by report. Therefore it has decreased in size. Still some of peripancreatic inflammatory changes noted. I do not see other fluid collections or pseudocysts/abscess. Common duct is dilated the abran hepatis and pancreatic head until it is obscured by shadowing by the multiple surgical clips and gastrojejunostomy 2 but is grossly unchanged. There is some mild hydronephrosis on the right as a new finding compared to 07/17/2020 but described on the 07/[address] report no renal or ureteral stone. Left kidney collecting system and ureter unremarkable. Small bowel without dilatation to suggest ileus or obstruction. CT pelvis: Uterus anteverted somewhat globular in appearance the 4.4 cm left ovarian lesion similar to what is described on previous CT report and are prior CT. No sign of colitis or diverticulitis in the abdominal portion of colon. No inflammatory changes about the cecum. No ventral or inguinal hernia nor pathologic sized inguinal adenopathy. Bony pelvis unchanged. IMPRESSION: 1. There is near complete resolution of portal vein thrombosis described in the [address] with only a small 5 mm hypodense focus in the portal vein in the abran hepatis with the recannulization of right and left portal veins and SMV as well. 2. Slightly smaller retroperitoneal hyperdense fluid collection near the pancreatic head and uncinate process representing hemorrhagic pancreatitis or retroperitoneal bleed. Collection is a fairly well organized without an enhancing rim and suggests pseudocyst configuration. It is slightly smaller than the previous study as described above. 3. Some peripancreatic inflammatory changes consistent with pancreatitis somewhat decreased from the previous CT on 07/17/2020. Stomach is no longer distended and has a gastrojejunostomy tube placed, tip in the proximal jejunum. 4. No evidence of a small bowel or colonic ileus or obstruction. 5. A hypodense liver lesion posterior dome of the liver in the right hepatic lobe unchanged in seen dating back to 2018 CT, a benign finding. 6. Right hydronephrosis as previously described. It is likely related to the pancreatitis adjacent, no stone. 7. Four point 5 cm soft tissue focus in the left adnexal region. Unchanged. <Electronically signed by Qamar Orta > 08/02/20 [id number]
[2020-08-02 14:00] VITALS: BP 125/76
[2020-08-02] MEDS ORDERED: WARFARIN SOD 5MG TAB PO SCH (17:00)
[2020-08-02] MEDS: RAMELTEON 8 MG TAB (ROZEREM) JT SCH (21:20)
[2020-08-02 22:00] VITALS: BP 133/74
[2020-08-03 06:00] VITALS: BP 135/90
[2020-08-03 06:18] LABS: HEMATOCRIT 39.8 % (36.0-47.0); HEMOGLOBIN 12.5 g/dl (12.0-15.5); MEAN CORPUSCULAR HEMOGLOBIN 27.4 pg (27.0-33.0); MEAN CORPUSCULAR HGB CONC 31.4 g/dl (32.0-36.5); MEAN CORPUSCULAR VOLUME 87.1 fl (80.0-96.0); PLATELET COUNT, AUTOMATED 723 10^3/uL (150-450); RED BLOOD COUNT 4.57 10^6/uL (4.00-5.40)
[2020-08-03 06:20] LABS: WHITE BLOOD COUNT 15.4 10^3/uL (4.0-10.0)
[2020-08-03 06:30] LABS: INR 1.1; PROTHROMBIN TIME 14.4 SECONDS (12.5-14.3)
[2020-08-03 06:39] LABS: ALBUMIN 3.2 GM/DL (3.2-5.2); ALT/SGPT 35 U/L (12-78); BILIRUBIN,TOTAL 0.3 MG/DL (0.2-1.0); BLOOD UREA NITROGEN 30 MG/DL (7-18); CALCIUM LEVEL 9.4 MG/DL (8.5-10.1); CARBON DIOXIDE LEVEL 28 MEQ/L (21-32); CHLORIDE LEVEL 100 MEQ/L (98-107); GLOMERULAR FILTRATION RATE > 60.0 (>51); GLUCOSE, FASTING 117 MG/DL (70-100); MAGNESIUM LEVEL 2.3 MG/DL (1.8-2.4); POTASSIUM SERUM 4.1 MEQ/L (3.5-5.1); SODIUM LEVEL 136 MEQ/L (136-145); TOTAL PROTEIN 7.9 GM/DL (6.4-8.2)
[2020-08-03] MEDS: oxyCODONE 5MG TAB JT PRN ×4 (06:47→21:52)
[2020-08-03 07:22] LABS: ATYPICAL LYMPH 2 % (0-5); LYMPHOCYTES 20 % (16-44); METAMYELOCYTES 1 % (0-0); MONOCYTES 5 % (0-5); MYELOCYTES 2 % (0-0); NEUTROPHILS 69 % (28-66)
[2020-08-03 07:24] LABS: PLATELET ESTIMATE INCREASED (NORMAL)
[2020-08-03 07:25] LABS: ANISOCYTOSIS 1+
[2020-08-03 08:00] VITALS: BP 113/71
[2020-08-03] MEDS ORDERED: VITAMIN D 50,000 UNITS CAPSULE (ERGOCALCIFEROL 1.25MG) JT SCH (09:00)
[2020-08-03] MEDS: ENOXAPARIN 100MG/1ML SYRINGE (J1650 PER 10MG) SC SCH ×2 (09:15→21:40)
[2020-08-03] MEDS: FAMOTIDINE 20 MG TAB JT SCH (09:15)
[2020-08-03] MEDS: ATORVASTATIN 20 MG TAB JT SCH (09:16)
[2020-08-03] MEDS: ZONISAMIDE 100 MG CAP (ZONEGRAN) JT SCH ×2 (09:16→21:41)
[2020-08-03] MEDS: FENOFIBRATE 48 MG TAB (TRICOR) JT SCH (09:17)
[2020-08-03] MEDS: MAGNESIUM OXIDE 400MG TAB (MAG-OX) JT SCH (09:17)
--- NOTE | 2020-08-03 11:30 | IPNPDOC ---
Date Seen The patient was seen on 08/03/20. Progress Note SUBJECTIVE: 59 yo F with a hx of SBO, severe pancreatitis, first admitted to [facility] on 07/17/20, transfered to [facility] for higher level of care. Severe pancreatitis with hemorrhage, partial gastric outlet obstruction and flat lesions in duodenal bulb, with biopsies. A gastrojejunal ostomy tube was placed. She was fed through the J tube and drained with gravity through the G tube. On c alvarado review, CTA abdomen showed portal vein thrombosis. No anticoagulation was started. I was unable to find justification for non treatment, and will assume that it was held due to retroperitoneal hemorrhage/hematoma consequent to hemorrhagic pancreatitis approx 10 cm in diameter, which required 2 units of pRBC to be transfused. on 08/02/20, patient was started on heparin GGT with a stable hgb 12 hours later and transitioned to therapeutic lovenox. Plan was to bridge to warfarin, but due to patient's persistent back pain, ordered repeat CT abdo pelvis wo and w contrast. This morning patient is doing well. Back pain persists. Denies bleeding. Has not had a BM since gastrojejunal tube placement. Endorses worsening abdominal pain. No nausea or vomiting. Also endorses vaginal spotting since start AC. No gross bleeding per vagina. Gastric lumen putting out bilious contents. Tube feeds ordered, tolerating well so far. OBJECTIVE PHYSICAL EXAMINATION: VITAL SIGNS: please see below General: NAD, comfortable HEENT: PERRLA, EOMI, sclerae clear Neck: supple, normal ROM, no JVD Respiratory: lungs CTAB, no wheeze, no rales, no crackles CVS: RRR, normal S1, S2, no murmurs Abdo: J tube in placed, dressings intact, soft, no masses, no hepatosplenomegaly, BS+, no rebound tenderness Extremities: no edema, pulses 2+ MSK: no joint deformities, normal ROM Neuro: no focal neuro deficits, moving all 4 extremities, CN2-12 intact. Strength 5/5 in all 4 extremities. No nystagmus. Psych: calm, cooperative, AAO x 3 LABORATORY DATA, IMAGING STUDIES, MICROBIOLOGY: Please see below. DVT prophylaxis ordered?: SCDs. Teds. Lovenox therapeutic. ASSESSMENT AND PLAN: PROBLEMS: Acute pancreatitis with hemorrhage and partial gastric outlet obstruction -Went to surgery on 07/29/2020. Has gastrojejunal tube ostomy tube. - repeat Lipase normalized. Persistent lekocytosis, but no fevers. Procal pendin g. -Tube feeds through J tube and output through G tube -Per discharge instructions, she will need to "continue tube feeds through your J tube until your acute pancreatitis improves due to the acute pancreatitis putting pressure on your intestines." -Suggested tube feed is Peptamen AF (1.2kcal) continuous at a rate of 70mL/hr. Peptamen is a peptide base tube feed -We do not have an alternative to Peptamen as a peptide base tube feed. - Dietary recommending Vital AF 1.2 running at 70 ml/Hr, with 180 mg flushes q4h. Hold tube feeds if gastric residuals are > 150 cc - insignificant gastric residuals per RN. - d/w Dr. Henry, tube will likely remain in situ for 2-3 weeks, at which point if patient is tolerating PO diet, may be removed. Will provide appropriate follow up - patient has been having worsening abdominal pain, without a BM. D/w Dr. Cai. Surgical consult placed. CT scan was reviewed again, no distal bowel distension. Hematoma compressing duodenum. Plan will be to try dulcolax suppository, miralax via GJ tube with colace prn. - Needs PCP. Portal vein thrombosis - noted on CTA abdo 07/24/20? verify in records - discussed risks with patient of bleeding vs risks of portal vein HTN, mesenteric ischemia and infarction - patient opted for anticoagulation with close monitoring - started on heparin ggt, transitioned to Lovenox as Hgb stable. - will check CT abdo pelvis wo and w IV contrast as patient has persistent back pain - consideration for NOAC, but in the event of a bleed would prefer warfarin for reversability ease - patient understands risks and makes informed decision to proceed with AC. Vaginal spotting since starting AC. - Hgb stable - monitor GERD -Cannot put PPI in J-tube -Starting famotidine Dyslipidemia -Continue atorvastatin or fenofibrate DVT ppx -SCD and TEDs VS, I&O, 24H, Fishbone Vital Signs/I&O Vital Signs Date Time Temp Pulse Resp B/P (MAP) Pulse Ox O2 Delivery O2 Flow Rate FiO2 08/03/20 07:17 18 Room Air 08/03/20 06:00 97.3 105 135/90 (105) 96 I&O- Last 24 Hours up to 6 AM 08/03/20 06:00 Intake Total 2800 ml Output Total 4750 ml Balance -1950 ml Laboratory Data 24H LABS Laboratory Tests 2 08/03/20 05:21: Immature Granulocyte % (Auto) , Neutrophils (%) (Auto) , Nucleated Red Blood Cells % (auto) 0.2H, Neutrophils 69H, Band Neutrophils 1, Lymphocytes (Manual) 20, Monocytes (Manual) 5, Metamyelocytes 1H, Myelocytes 2H, Atypical Lymphocytes 2, Polychromasia , Anisocytosis 1+, Platelet Estimate INCREASED, Prothrombin Time 14.4H, Prothromb Time International Ratio 1.10, Anion Gap 8, Glomerular Filtration Rate > 60.0, Calcium Level 9.4, Magnesium Level 2.3, Total Bilirubin 0.3, Aspartate Amino Transf (AST/SGOT) 43H, Alanine Aminotransferase (ALT/SGPT) 35, Alkaline Phosphatase 156H, Total Protein 7.9, Albumin 3.2, Albumin/Globulin Ratio 0.7L CBC/BMP Laboratory Tests 08/03/20 05:21 LINDSEY ROB MD Aug 03, 2020 11:30
[2020-08-03] MEDS ORDERED: BISACODYL 10 MG SUPP PR ONE (12:30)
[2020-08-03] MEDS: DOCUSATE SOD LIQ 100MG/10ML UDC JT SCH ×2 (12:48→21:41)
--- NOTE | 2020-08-03 13:43 | CR ---
CONSULTATION DATE: 08/03/2020 HISTORY OF PRESENT ILLNESS: The patient was admitted with a history of acute pancreatitis and bowel obstruction. It essentially was a gastric outlet obstruction associated with a duodenal hematoma from her acute pancreatitis that occurred a week and a half ago, returns for further ongoing care until she is discharged to home. Essentially, is here for additional TPN and care. HOSPITAL COURSE: Placement of a gastrojejunostomy tube which she tolerated and has been getting tube feeds with this and tolerating tube feeds. Her gastric outlet obstruction continues given that she has a significant amount of bilious output out of the gastric portion of the drainage tube. I am asked to see her because of her multiple issues ongoing and recommendations for some moderate abdominal pain that has been persistent since the gastrostomy was placed. She has not had a bowel movement for several days as well. PAST MEDICAL HISTORY: History of lower back pain, history of DJD, history of bilateral carpal tunnel surgery, history of gastroesophageal reflux disease, hiatal hernia, gastroparesis, diverticulitis, rotator cuff tear, hernia repair, pancreatitis from gallbladder surgery in 1982, acid reflux surgery followed by lacerated liver and additional complications, carpal tunnel surgery, tubal ligation, hernia repair, MEDICATIONS ON ADMISSION: Atorvastatin, vitamin D, Lexapro, fenofibrate, Linzess, magnesium oxide, Pamelor, Protonix, Trospium chloride, Zonisamide. PHYSICAL EXAMINATION: GENERAL: A 59-year-old female who looks stated age. HEENT: Unremarkable. NECK: Supple without adenopathy. LUNGS: Clear anteriorly. HEART: Regular. ABDOMEN: Soft, mildly uncomfortable to palpation near the G-tube itself, but no guarding, no rebound, no peritoneal signs were appreciated. No other significant abdominal signs are appreciated. She has numerous abdominal incisions across her abdomen. No evidence of hernias. IMPRESSION AND PLAN: 1. Patient has evidence of resolving acute pancreatitis although her second issue is she has this hematoma that is near the duodenal C-loop and is causing a partial gastric outlet obstruction. At this point, I recommend continuing tube feeds via the J-portion of the gastrojejunostomy tube and continue decompression of the stomach. I anticipate given some time that this hematoma should resolve/improve allowing the stomach to empty better but at this point I would continue with the G-tube to gravity for now. 2. From the standpoint of the feedings, it seems as though they are going adequately well at this time and she is not having any specific problems with the tube feeds, however she is not having any bowel movements and this may be secondary to the type of tube feeds which are well absorbed and thus will have relatively minimal residue causing bowel movements. Will start her on some stool softeners and some Miralax and see if we cannot get her bowels moving more but at this point I am not seeing any small bowel obstruction or dilated colon and this may be related mostly to constipation and the type of tube feedings that is used. 3. Abdominal pain. The patient has abdominal pain that is mostly on the left side next to the gastrostomy tube. I am not seeing anything significantly abnormal. There is some edema, probable ecchymosis and swelling around the G-tube site on the CT scan from yesterday but nothing else that is concerning for cellulitis or drainage from the site itself. I would recommend continuing with the current treatment and we will see how she does over the ensuing few days with this.
[2020-08-03 14:00] VITALS: BP 117/73
[2020-08-03] MEDS: WARFARIN SOD 5MG TAB JT SCH (18:08)
[2020-08-03 19:54] LABS: HEMATOCRIT 38.8 % (36.0-47.0); HEMOGLOBIN 12.2 g/dl (12.0-15.5)
[2020-08-03] MEDS: MIRALAX *UNIT DOSE* 17GM PACKET JT SCH (21:40)
[2020-08-03] MEDS: RAMELTEON 8 MG TAB (ROZEREM) JT SCH (21:40)
[2020-08-03 22:00] VITALS: BP 149/91
[2020-08-04] MEDS: oxyCODONE 5MG TAB JT PRN ×2 (05:42→17:41)
[2020-08-04 06:00] VITALS: BP 146/92
[2020-08-04 06:48] LABS: HEMATOCRIT 40.7 % (36.0-47.0); MEAN CORPUSCULAR HGB CONC 31.9 g/dl (32.0-36.5); MEAN CORPUSCULAR VOLUME 84.4 fl (80.0-96.0); PLATELET COUNT, AUTOMATED 757 10^3/uL (150-450); RED BLOOD COUNT 4.82 10^6/uL (4.00-5.40)
[2020-08-04 06:53] LABS: WHITE BLOOD COUNT 18.7 10^3/uL (4.0-10.0)
[2020-08-04 07:22] LABS: ALBUMIN 3.3 GM/DL (3.2-5.2); ALT/SGPT 36 U/L (12-78); BILIRUBIN,TOTAL 0.3 MG/DL (0.2-1.0); BLOOD UREA NITROGEN 36 MG/DL (7-18); CALCIUM LEVEL 10.2 MG/DL (8.5-10.1); CARBON DIOXIDE LEVEL 26 MEQ/L (21-32); CHLORIDE LEVEL 95 MEQ/L (98-107); CREATININE FOR GFR 0.85 MG/DL (0.55-1.30); GLOMERULAR FILTRATION RATE > 60.0 (>51); GLUCOSE, FASTING 113 MG/DL (70-100); MAGNESIUM LEVEL 2.4 MG/DL (1.8-2.4); POTASSIUM SERUM 3.7 MEQ/L (3.5-5.1); SODIUM LEVEL 132 MEQ/L (136-145); TOTAL PROTEIN 9.1 GM/DL (6.4-8.2)
[2020-08-04 07:43] LABS: ATYPICAL LYMPH 6 % (0-5); BASOPHILS 1 % (0-1); EOSINOPHILS 3 % (0-3); LYMPHOCYTES 13 % (16-44); METAMYELOCYTES 2 % (0-0); MONOCYTES 12 % (0-5); MYELOCYTES 2 % (0-0); NEUTROPHILS 61 % (28-66); PLATELET ESTIMATE INCREASED (NORMAL)
[2020-08-04 07:44] LABS: ANISOCYTOSIS 1+
[2020-08-04] MEDS: DOCUSATE SOD LIQ 100MG/10ML UDC JT SCH (08:59)
[2020-08-04] MEDS: ACETAMINOPHEN 325 MG/10.15 ML UDC JT PRN (08:59)
[2020-08-04] MEDS: ZONISAMIDE 100 MG CAP (ZONEGRAN) JT SCH (09:00)
[2020-08-04] MEDS ORDERED: BISACODYL 10 MG SUPP PR SCH (09:00)
[2020-08-04] MEDS: ENOXAPARIN 100MG/1ML SYRINGE (J1650 PER 10MG) SC SCH (09:01)
[2020-08-04] MEDS: MAGNESIUM OXIDE 400MG TAB (MAG-OX) JT SCH (09:04)
[2020-08-04] MEDS: FAMOTIDINE 20 MG TAB JT SCH (09:04)
[2020-08-04] MEDS: MIRALAX *UNIT DOSE* 17GM PACKET JT SCH (09:04)
[2020-08-04] MEDS: ATORVASTATIN 20 MG TAB JT SCH (09:04)
[2020-08-04] MEDS: FENOFIBRATE 48 MG TAB (TRICOR) JT SCH (09:04)
[2020-08-04] MEDS ORDERED: ONDANSETRON 4MG/2ML VIAL IV ONE (09:15)
[2020-08-04] MEDS ORDERED: BISACODYL 10 MG SUPP PR ONE (11:15)
--- NOTE | 2020-08-04 11:24 | IPNPDOC ---
Text Note Date of Service The patient was seen on 08/04/20. NOTE Subjective: Patient was seen and examined this morning at bedside. Patient tells me overall she feels better. She says she has a bowel movement she believes 2 days ago but she is unsure. He tells me she's feeling a little bit nauseous with dry heaving and overall still having weakness. There is no acute overnight events reported to me. Patient denies any chest pain or shortness of breath this time. Objective: Constitutional: Awake and alert, in no apparent distress ENT: Sclera are clear. Mucosa is moist. Respiratory: Lungs CTA bilaterally. No respiratory distress. No use of accessory muscles. Cardiovascular: RRR S1 and S2 are normal, no murmur Gastrointestinal: J tube in placed, dressings intact, soft, no hepatosplenomegaly, BS+, no rebound tenderness Musculoskeletal: No edema. No joint deformities. RUE 5/5, LUE 5/5, BLE 5/5 Neurologic: No focal neurological deficit. Mental Status: A&O x3, normal affect Skin: Warm, dry Assessment/plan: # Acute pancreatitis with hemorrhage and partial gastric outlet obstruction -Went to surgery on 07/29/2020. Has gastrojejunal tube ostomy tube. - repeat Lipase normalized. Persistent lekocytosis, but no fevers. Procal pending. -Tube feeds through J tube and output through G tube. -Suggested tube feed is Peptamen AF (1.2kcal) continuous at a rate of 70mL/hr. Peptamen is a peptide base tube feed. We do not have an alternative to Peptamen as a peptide base tube feed. Dietary recommending Vital AF 1.2 running at 70 ml/Hr, with 180 mg flushes q4h. Hold tube feeds if gastric residuals are > 150 cc - insignificant gastric residuals per RN. - d/w Dr. Henry, tube will likely remain in situ for 2-3 weeks, at which point if patient is tolerating PO diet, may be removed. Will provide appropriate follow up - patient has been having worsening abdominal pain, without a BM. D/w Dr. Cai. Surgical consult placed. CT scan was reviewed again, no distal bowel distension. Hematoma compressing duodenum. Plan will be to try dulcolax suppository, miralax via GJ tube with colace prn. - Needs PCP at time of discharge from ARU. - Discussed with Dr Fofana today and Dr kilgore - ok to discharge to ARU and will be watching her WBC count there as well as her having a BM # Portal vein thrombosis - noted on CTA abdo 07/24/20 - discussed risks with patient of bleeding vs risks of portal vein HTN, mesenteric ischemia and infarction - patient opted for anticoagulation with close monitoring - started on heparin ggt, was transitioned to Lovenox as Hgb is stable. - CT abdo pelvis wo and w IV contrast showed resolution of the thrombus. - consideration for NOAC, but in the event of a bleed would prefer warfarin for reversibility ease, so will keep her on lovenox for now, if hgb remains stable and cleared by surgery can switch to NOAC at time of discharge from ARU. # Vaginal spotting since starting AC. Hgb stable. Will Electrical Intern referral at time of discharge from ARU. # GERD: Cannot put PPI in J-tube. famotidine # Dyslipidemia: Continue atorvastatin or fenofibrate # DVT ppx: SCD and TEDs [facility], I+O VSBest I+O Laboratory Tests 08/03/20 19:42 08/04/20 05:44 Vital Signs Date Time Temp Pulse Resp B/P (MAP) Pulse Ox O2 Delivery O2 Flow Rate FiO2 08/04/20 06:12 18 08/04/20 06:00 98.6 96 146/92 (110) 95 Room Air I&O- Last 24 Hours up to 6 AM 08/04/20 06:00 Intake Total 2880 ml Output Total 4800 ml Balance -1920 ml PEBBLES HOLDER MD Aug 04, 2020 11:24
--- NOTE | 2020-08-04 11:27 | DS.PDOC ---
Discharge Summary General Date of Admission Jul 31, 2020 at 23:27 Date of Discharge 08/04/20 Discharge Summary PROCEDURES PERFORMED DURING STAY: [None]. ADMITTING/DISCHARGE DIAGNOSES: 1. Acute pancreatitis with hemorrhage and partial gastric outlet obstruction 2. Portal vein thrombosis COMPLICATIONS/CHIEF COMPLAINT: Small Bowel Obstruction,Pancreatitis. HISTORY OF PRESENT ILLNESS: From admitting H&P:Mrs. Calvin is a 59-year-old female with multiple abdominal surgeries who was transferred back to [facility] after being treated up at [facility]. On 07/17/2020, patient was admitted to [facility] for acute pancreatitis and small bowel obstruction, but then was transferred to [facility] for higher level of care. She was initially treated conservatively, but failed conservative measures and on 07/29/2020 patient went to the OR for acute pancreatitis with hemorrhage, par tial gastric outlet obstruction, and flat lesions in the duodenal bulb. They took a biopsy of duodenal lesions. They placed a gastrojejunal ostomy tube. They had planned for her to receive tube feeds through the J-tube and drain with gravity through the G-tube. She was put on Peptamen AF (1.2 kcal) for a goal continuous rate of 70 mL/hr. G tube to gravity bag. They will need volume replacement base on output from G tube. Afterwards, patient did not want to be discharged home. She requested to be sent back to [facility]. Patient arrived here early in the morning. Denies any fever or chills, chest pain, or dyspnea. She still had some abdominal pain which may be from her abdominal surgery. Abdominal pain is diffuse and tender to deep palpation. It is an achy pain. Otherwise abdomen is soft. Site around PEG J-tube does not appear to be infected, but still lightly bloody. Patient will be admitted for further medical management. HOSPITAL COURSE: # Acute pancreatitis with hemorrhage and partial gastric outlet obstruction -Went to surgery on 07/29/2020. Has gastrojejunal tube ostomy tube. - repeat Lipase normalized. Persistent lekocytosis, but no fevers. Procal negative -Tube feeds through J tube and output through G tube. -Suggested tube feed is Peptamen AF (1.2kcal) continuous at a rate of 70mL/hr. Peptamen is a peptide base tube feed. We do not have an alternative to Peptamen as a peptide base tube feed. Dietary recommending Vital AF 1.2 running at 70 ml/Hr, with 180 mg flushes q4h. Hold tube feeds if gastric residuals are > 150 cc - insignificant gastric residuals per RN. - d/w Dr. Henry, tube will likely remain in situ for 2-3 weeks, at which point if patient is tolerating PO diet, may be removed. Will provide appropriate follow up - patient has been having worsening abdominal pain, without a BM. D/w Dr. Cai. Surgical consult placed. CT scan was reviewed again, no distal bowel distension. Hematoma compressing duodenum. Plan will be to try dulcolax suppository, miralax via GJ tube with colace prn. - Needs PCP at time of discharge from ARU. - Discussed with Dr Fofana today and Dr kilgore - ok to discharge to ARU and will be watching her WBC count there as well as her having a BM # Portal vein thrombosis - noted on CTA abdo 07/24/20 - discussed risks with patient of bleeding vs risks of portal vein HTN, mesenteric ischemia and infarction - patient opted for anticoagulation with close monitoring - started on heparin ggt, was transitioned to Lovenox as Hgb is stable. - CT abdo pelvis wo and w IV contrast showed resolution of the thrombus. - consideration for NOAC, but in the event of a bleed would prefer warfarin for reversibility ease, so will keep her on lovenox for now, if hgb remains stable and cleared by surgery can switch to NOAC at time of discharge from ARU. # Vaginal spotting since starting AC. Hgb stable. Will Lens Assistant referral at time of discharge from ARU. # GERD: Cannot put PPI in J-tube. famotidine DISCHARGE MEDICATIONS: Please see below. ALLERGIES: Please see below. PHYSICAL EXAMINATION ON DISCHARGE: VITAL SIGNS: Please see below. Constitutional: Awake and alert, in no apparent distress ENT: Sclera are clear. Mucosa is moist. Respiratory: Lungs CTA bilaterally. No respiratory distress. No use of acc essory muscles. Cardiovascular: RRR S1 and S2 are normal, no murmur Gastrointestinal: J tube in placed, dressings intact, soft, no hepatosplenomegaly, BS+, no rebound tenderness Musculoskeletal: No edema. No joint deformities. RUE 5/5, LUE 5/5, BLE 5/5 Neurologic: No focal neurological deficit. Mental Status: A&O x3, normal affect Skin: Warm, dry LABORATORY DATA: Please see below. IMAGING: See chart PROGNOSIS: Fair ACTIVITY: [As tolerated]. DIET: Tube feeding as above DISPOSITION: ARU DISCHARGE INSTRUCTIONS: Transfer to acute rehabilitation unit ITEMS TO FOLLOWUP ON ON OUTPATIENT: Follow-up with primary care physician within 5 days of discharge Follow-up with [employer] manager for vaginal bleeding DISCHARGE CONDITION: [Stable]. TIME SPENT ON DISCHARGE: 40 minutes. Vital Signs/I&Os Vital Signs Date Time Temp Pulse Resp B/P (MAP) Pulse Ox O2 Delivery O2 Flow Rate FiO2 08/04/20 06:12 18 08/04/20 06:00 98.6 96 146/92 (110) 95 Room Air I&O- Last 24 Hours up to 6 AM 08/04/20 06:00 Intake Total 2880 ml Output Total 4800 ml Balance -1920 ml Laboratory Data Labs 24H Laboratory Tests 2 08/04/20 05:44: Immature Granulocyte % (Auto) , Neutrophils (%) (Auto) , Nucleated Red Blood Cells % (auto) 0.2H, Neutrophils 61, Lymphocytes (Manual) 13L, Monocytes (Manual) 12H, Eosinophils (Manual) 3, Basophils (Manual) 1, Metamyelocytes 2H, Myelocytes 2H, Atypical Lymphocytes 6H, Anisocytosis 1+, Platelet Estimate INCREASED, Anion Gap 11, Glomerular Filtration Rate > 60.0, Calcium Level 10.2H, Magnesium Level 2.4, Total Bilirubin 0.3, Aspartate Amino Transf (AST/SGOT) 37, Alanine Aminotransferase (ALT/SGPT) 36, Alkaline Phosphatase 150H, Total Protein 9.1H, Albumin 3.3, Albumin/Globulin Ratio 0.6L CBC/BMP Laboratory Tests 08/03/20 19:42 08/04/20 05:44 Discharge Medications Scheduled Atorvastatin Calcium (Atorvastatin Calcium) 40 Mg Tab, 40 MG PO DAILY, (Repo rted) Ergocalciferol (Vitamin D2) (Vitamin D2) 50,000 Units Cap, 50,000 UNITS PO QWEEK, (Reported) SATURDAYS Escitalopram Oxalate (Lexapro) 20 Mg Tablet, 20 MG PO DAILY, (Reported) Fenofibrate (Fenofibrate) 54 Mg Tab, 54 MG PO DAILY, (Reported) Linaclotide (Linzess) 290 Mcg Capsule, 290 MCG PO DAILY, (Reported) Magnesium Oxide (Magnesium Oxide) 400 Mg Tablet, 400 MG PO DAILY, (Reported) Nortriptyline Hcl (Pamelor) 25 Mg Cap, 25 MG PO DAILY, (Reported) Pantoprazole Sodium (Pantoprazole Sodium) 40 Mg Tab, 40 MG PO DAILY, (Reported) Trospium Chloride (Trospium Chloride) 20 Mg Tablet, 20 MG PO BID, (Reported) Zonisamide (Zonisamide) 100 Mg Cap, 100 MG PO BID, (Reported) Scheduled PRN Melatonin (Melatonin) 3 Mg Capsule, 3 MG PO QHS PRN for SLEEP, (Reported) Naproxen (Naproxen) 500 Mg Tablet, 500 MG PO BID PRN for PAIN, (Reported) Allergies Coded Allergies: TAPE (Verified Allergy, Mild, PLASTIC TAPE = RASH, 06/08/18) PEBBLES HOLDER MD Aug 04, 2020 11:27
[2020-08-04] MEDS ORDERED: MAGN400T2 JT (11:33)
[2020-08-04] MEDS ORDERED: LOVE0.8I SC (11:33)
[2020-08-04] MEDS ORDERED: PEG1POW JT (11:33)
[2020-08-04] MEDS ORDERED: FAMO20TA JT (11:33)
[2020-08-04] MEDS ORDERED: DOCU10ELUD JT (11:33)
[2020-08-04] MEDS ORDERED: BISA10SU PR (11:33)
[2020-08-04] MEDS ORDERED: ZONE1CAP JT (11:33)
[2020-08-04 14:00] VITALS: BP 145/89
--- NOTE | 2020-08-04 15:25 | IPNPDOC ---
Text Note Date of Service The patient was seen on 08/04/20. NOTE General Surgery Dr Cai. The patient is a 59-year-old female with history of gastric: Obstruction associated with duodenal hematoma secondary to acute pancreatitis status post placement of gastrojejunostomy tube currently receiving tube feeds. She continues to have bilious output from the gastric portion of the drainage tube. The patient reports nausea and dry heaves this morning. Nursing reports BM 1 08/03/20. She has some mild abdominal discomfort near the G-tube, this has been about the same. Afebrile. VSS. MMM Lungs clear to auscultation S1-S2 regular rate and rhythm. Abdomen is soft, still with mild discomfort with palpation around the G-tube, no guarding, no rebound. Incisions with dressings intact. Extremities. No edema. Well perfused. 3840/5475, - 1635 WBC 18.7, compared with 15.42/. Alkaline phosphatase 150, AST 37, ALT 36. A/P Gastric outlet obstruction associated with duodenal hematoma related to acute pancreatitis continue tube feeds via the J-portion of the gastrojejunostomy tube, has been tolerating with no significant residuals. continue G tube to gravity for now. 3400cc from drain 08/03. Patient is afebrile, plan to monitor WBC. Plan to transfer to ARU today as per Hospitalist. Constipation. BM x 1 recorded 08/03 Continue bowel care. Abdominal pain. No acute findings noted on CT 08/02, reviewed as per Dr Cai. There is no surrounding cellulitis or drainage from the site. Continue to monitor. VS,Fishbone, I+O VS, Fishbone, I+O Laboratory Tests 08/03/20 19:42 08/04/20 05:44 Vital Signs Date Time Temp Pulse Resp B/P (MAP) Pulse Ox O2 Delivery O2 Flow Rate FiO2 08/04/20 06:12 18 08/04/20 06:00 98.6 96 146/92 (110) 95 Room Air I&O- Last 24 Hours up to 6 AM 08/04/20 06:00 Intake Total 2880 ml Output Total 4800 ml Balance -1920 ml Maryam Stokes Aug 04, 2020 15:25
[2020-08-04] MEDS: WARFARIN SOD 5MG TAB JT SCH (17:41)
== END 2020-08-04 17:56 | DRG 254 ==
LOC: M MSPAV 23:27
PROVIDERS: ADMIT Internal Medicine; ATTEND Family Medicine
DX: K31.1 Adult hypertrophic pyloric stenosis (principal); I81 Portal vein thrombosis; K85.90 Acute pancreatitis without necrosis or infection, unspecified; Z93.1 Gastrostomy status; Z93.4 Other artificial openings of gastrointestinal tract status; K21.9 Gastro-esophageal reflux disease without esophagitis; Z79.899 Other long term (current) drug therapy

== ENCOUNTER 2020-08-04 10:37 | Inpatient (IN) | payer OTHER ==
[~2020-08-04] VITALS: Ht 167.6 cm; Wt 93.7 kg
[~2020-08-04 10:37] MED LIST changes: +LEXA1TAB2 PO; +MELA3CAP2 PO; +NAPR-885 PO
[2020-08-04] MEDS ORDERED: MAGN400T2 JT (11:33)
[2020-08-04] MEDS ORDERED: ZONE1CAP JT (11:33)
[2020-08-04] MEDS ORDERED: BISA10SU PR (11:33)
[2020-08-04] MEDS ORDERED: POLY17PO18 JT (11:33)
[2020-08-04] MEDS ORDERED: FAMO20TA JT (11:33)
[2020-08-04] MEDS ORDERED: DOCU10ELUD JT (11:33)
[2020-08-04] MEDS ORDERED: LOVE0.8I SC (11:33)
[2020-08-04] MEDS: REMEDY PHYTOPLEX Z-GUARD PASTE 113GM TUBE (FROM STOREROOM PRODUCT) TOP SCH ×3 (16:00→21:00)
[2020-08-04] MEDS ORDERED: WARFARIN SOD 7.5MG TAB PO ONE (17:00)
[2020-08-04 18:00] VITALS: BP 132/95
--- OUTSIDE RECORDS SUMMARY | 2020-08-04 18:23 | CCD | Summary of Care ---
Author Author [facility] Organization [facility] Address Unknown Phone Unavailable Care Team Providers Care [facility] Operations Consultant Name Role Phone Maria Elena Enriquez SYSTEM ADMINISTRATOR PCP Encounter Details Care Team Description Date Type Department 07/17/2020 [facility] TRANSFER CE NTER Encounter [address] [place] [address] Allergies Not on Filedocumented as of this encounter (statuses as of 08/01/2020) Medications End Date Status Medication Sig Dispensed Refills Start Date Active estrogen, Take 1 tablet 0 conjugated,-medroxyproges by mouth terone (PREMPRO) daily. 0.625-2.5 MG per tablet Active omeprazole (PRILOSEC) 40 Take 40 mg by 0 MG capsule mouth Three times daily. Active docusate sodium Take 100 mg 0 (DOCQLACE) 100 MG capsule by mouth Two Times Daily. Active atorvastatin (LIPITOR) 40 Take 40 mg by 0 MG tablet mouth daily. Active tramadol (ULTRAM) 50 MG Take 50 mg by 0 tablet mouth every 8 (eight) hours as needed. Active azelastine (ASTELIN) 137 1 spray by 0 MCG/SPRAY nasal spray Nasal route daily as needed. Use in each nostril as directed Active trospium (SANCTURA) 20 MG Take 20 mg by 0 tablet mouth nightly. documented as of this encounter (statuses as of 08/01/2020) Active Problems Problem Noted Date Polyarthralgia Unspecified vitamin D deficiency KULDIP positive documented as of this encounter (statuses as of 08/01/2020) Social History Date Tobacco Use Types Packs/Day Years Used Quit: 05/17/1981 Former Smoker Cigarettes 0.5 Drinks/Week oz/Week Comments Alcohol Use No Sex Assigned at Date Recorded Not on file Date Recorded COVID-19 Exposure Response 07/17/2020 5:45 PM EST In the last month, have you been in contact with No / Unsure someone who was confirmed or suspected to have Coronavirus / COVID-19? documented as of this encounter Last Filed Vital Signs Not on filedocumented in this encounter Plan of Treatment Health Maintenance Due Date Last Done Comments Hepatitis C Screening (B. 1961 2351-1625) MMR Vaccines (1 of - 1962 Standard series) Varicella Vaccines (1 of 1962 2 - 2-dose childhood series) DTaP,Tdap,and Td Vaccines 1968 (1 - Tdap) HIV Screening 1974 Cervical Cancer Screening 1982 5 years Breast Cancer Screening 2 09/24/2011 years Colon Cancer Screening 10 09/24/2011 yrs Influenza Vaccine 03/12/2020 04/22/2019, 06/01/2018 Pneumococcal Vaccine: 65+ 2026 Years (1 of 1 - PPSV23) HIB Vaccines Aged Out No longer eligible based on patient's age to complete this topic Hepatitis A Vaccines Aged Out No longer eligibl e based on patient's age to complete this topic Hepatitis B Vaccines Aged Out No longer eligibl e based on patient's age to complete this topic IPV Vaccines Aged Out No longer eligible based on patient's age to complete this topic Pneumococcal Vaccine: Aged Out No longer eligib le based on patient's age to Pediatrics (0 to 5 Years) complete this topic and At-Risk Patients (6 to 64 Years) documented as of this encounter Results Not on filedocumented in this encounter
--- OUTSIDE RECORDS SUMMARY | 2020-08-04 18:25 | CCD ---
Author Author [facility] Organization [facility] Address Unknown Phone Unavailable Care Team Providers Care Drying Machine Back Tender Name Role Phone SEANAlexis PA Unavailable Unavailable [...] Unavailable Grybowski, T Darien Unavailable Grybowski, T Dairen Unavailable Grybowski, T Darien Unavailable Grybowski, T [...] + Grybowski, T Darien Unavailable + Fish, [facility], PA-C Unavailable Unavailabl e Fish, [facility], PA-C Unavailable Unavailabl e Fish, [facility], PA-C Unavailable Unavailabl e Fish, [facility], PA-C Unavailable Unavailabl e Fish, [facility], PA-C Unavailable Unavailabl e Fish, [facility], PA-C Unavailable Unavailabl e Fish, [facility], PA-C Unavailable Unavailabl e Fish, [facility], PA-C Unavailable Unavailabl e Fish, [facility], PA-C Unavailable Unavailabl e Fish, [facility], PA-C Unavailable Unavailabl e Fish, [facility], PA-C Unavailable Unavailabl e Fish, [facility], PA-C Unavailable Unavailabl e Fish, [facility], PA-C Unavailable Unavailabl e Fish, [facility], PA-C Unavailable Unavailabl e Fish, [facility], PA-C Unavailable Unavailabl e Fish, [facility], PA-C Unavailable Unavailabl e Fish, [facility], PA-C Unavailable Unavailabl e Fish, [facility], PA-C Unavailable Unavailabl e Fish, [facility], PA-C Unavailable Unavailabl e Fish, [facility], PA-C Unavailable Unavailabl e Fish, [facility], PA-C Unavailable Unavailabl e Fish, [facility], PA-C Unavailable Unavailabl e Fish, [facility], PA-C Unavailable Unavailabl e Fish, [facility], PA-C Unavailable Unavailabl e Fish, [facility], PA-C Unavailable Unavailabl e Fish, [facility], PA-C Unavailable Unavailabl e Fish, [facility], PA-C Unavailable Unavailabl e Fish, [facility], PA-C Unavailable Unavailabl e Fish, [facility], PA-C Unavailable Unavailabl e Fish, [facility], PA-C Unavailable Unavailabl e Fish, [facility], PA-C Unavailable Unavailabl e Fish, [facility], PA-C Unavailable Unavailabl e Fish, [facility], PA-C Unavailable Unavailabl e Fish, [facility], PA-C Unavailable Unavailabl e Enriquez, Maria Elena CYBER FORENSICS ANALYST Unavailable Unavailable Enriquez, Maria Elena CYBER FORENSICS ANALYST Unavailable Unavailable Enriquez, Maria Elena CYBER FORENSICS ANALYST Unavailable Unavailable Enriquez, Maria Elena CYBER FORENSICS ANALYST Unavailable Unavailable Enriquez, Maria Elena CYBER FORENSICS ANALYST Unavailable Unavailable Enriquez, Maria Elena CYBER FORENSICS ANALYST Unavailable Unavailable Enriquez, Maria Elena CYBER FORENSICS ANALYST Unavailable Unavailable Enriquez, Maria Elena CYBER FORENSICS ANALYST Unavailable Unavailable Enriquez, Maria Elena CYBER FORENSICS ANALYST Unavailable Unavailable Enriquez, Maria Elena CYBER FORENSICS ANALYST Unavailable Unavailable Enriquez, Maria Elena CYBER FORENSICS ANALYST Unavailable Unavailable Enriquez, Maria Elena CYBER FORENSICS ANALYST Unavailable Unavailable Enriquez, Maria Elena CYBER FORENSICS ANALYST Unavailable Unavailable Enriquez, Maria Elena CYBER FORENSICS ANALYST Unavailable Unavailable Enriquez, Maria Elena CYBER FORENSICS ANALYST Unavailable Unavailable Enriqeuz, Maria Elena CYBER FORENSICS ANALYST Unavailable Unavailable Enriquez, Maria Elena CYBER FORENSICS ANALYST Unavailable Unavailable Enriquez, Maria Elena CYBER FORENSICS ANALYST Unavailable Unavailable Enriquez, Maria Elena CYBER FORENSICS ANALYST Unavailable Unavailable Enriquez, Maria Elena CYBER FORENSICS ANALYST Unavailable Unavailable Enriquez, Maria Elena CYBER FORENSICS ANALYST Unavailable Unavailable Enriquez, Maria Elena CYBER FORENSICS ANALYST Unavailable Unavailable Enriquez, Maria Elena CYBER FORENSICS ANALYST Unavailable Unavailable Enriquez, Maria Elena CYBER FORENSICS ANALYST Unavailable Unavailable Enriquez, Maria Elena CYBER FORENSICS ANALYST Unavailable Unavailable Enriquez, Maria Elena CYBER FORENSICS ANALYST Unavailable Unavailable Enriquez, Maria Elena CYBER FORENSICS ANALYST Unavailable Unavailable Enriquez, Maria Elena CYBER FORENSICS ANALYST Unavailable Unavailable Enriquez, Maria Elena CYBER FORENSICS ANALYST Unavailable Unavailable Enriquez, Maria Elena CYBER FORENSICS ANALYST Unavailable Unavailable Enriquez, Maria Elena CYBER FORENSICS ANALYST Unavailable Unavailable Enriquez, Maria Elena CYBER FORENSICS ANALYST Unavailable Unavailable Enriquez, Maria Elena CYBER FORENSICS ANALYST Unavailable Unavailable Enriquez, Maria Elena CYBER FORENSICS ANALYST Unavailable Unavailable Enriquez, Maria Elena CYBER FORENSICS ANALYST Unavailable Unavailable Enriquez, Maria Elena CYBER FORENSICS ANALYST Unavailable Unavailable Enriquez, Maria Elena CYBER FORENSICS ANALYST Unavailable Unavailable MARKWITH, KAYKAY MONTEMAYOR Unavailable Unavailable [...] is protected by Article 27-F of the [place] Public Health law. If you continue you may have access to information: Regarding HIV / AIDS; Provided by facilities licensed or operated by the [facility] Office of Mental Health; or Provided by the [facility] Office for People With Developmental Disabilities. If such information is present, then the following [facility] mandated warning applies: This information has been [...] law may result in a fine or snf sentence or both. A general authorization for the release of medical or other information is NOT sufficient authorization for further disc losure. Family History Family Member Name Family Member Gender Family Member Status Date o f Status Description Data Source(s) Unknown Unknown Problem MEDENT ([facility]) Unknown Male Problem MEDENT ([facility] ) Encounters Encounter Providers Location Date Indications Data Source(s ) [place] [address] [facility] [address] 07/20/2020 12:00:00 AM EST eCW1 ([facility]) Outpatient 07/17/2020 05:45:00 PM EST S evere pancreatitis, sepsis secondary to pancreatitis, and [facility] Severe pancreatitis, sepsis secondary to pancreatitis, and [facility] Outpatient [address] [facility] [address] 07/08/2020 12:00:00 AM EST eCW1 ([facility]) Unknown [address] [facility] [address] 07/08/2020 12:00:00 AM EST eCW1 ([facility]) Office Visit Attender: KAYKAY VANEGAS MD Physical Therapy 09:00:00 AM EST MEDENT ([facility]) Unknown [address] [facility] [address] 06/18/2020 12:00:00 AM EST eCW1 ([facility]) Unknown [address] [facility] [address] 06/16/2020 12:00:00 AM EST eCW1 ([facility]) Unknown [address] [facility] [address] 06/10/2020 12:00:00 AM EST eCW1 ([facility]) Office Visit Attender: KAYKAY VANEGAS MD Physical Therapy 09:00:00 AM EST MEDENT ([facility]) Unknown [address] [facility] [place] [address] 05/19/2020 12:00:00 AM EST eCW1 [facility]) Outpatient Attender: Maria Elena Enriquez FNPReferrer: Darien winkler 05/18/2020 12:00:00 PM EST - 05/18/2020 12:00:00 PM [facility] Unknown [address] [facility] [address] 05/14/2020 12:00:00 AM EST eCW1 ([facility]) Outpatient Attender: Maria Elena Trammellferrer: Darien winkler 05/13/2020 10:30:00 AM [facility] Outpatient Attender: ALTHEA KIMBROUGH MD Main office - [facility] 05/04/2020 12:00:00 PM EST MEDENT ([facility]) [place] [address] [facility] [address] 05/01/2020 12:00:00 AM EST eCW1 ([facility]) Unknown [address] [facility] [place] [address] 04/29/2020 12:00:00 AM EST eCW1 ([facility]) Outpatient Attender: KAYKAY MATTHEWS [facility] Office 04/12 02:00:00 PM EST MEDENT ([facility] Unknown [address] [facility] [place] [address] 04/24/2020 12:00:00 AM EST eCW1 ([facility]) Outpatient Attender: KAYKAY MATTHEWS [facility] Office 03/14 02:15:00 PM EDT [facility] ([facility] [place] [address] [facility] [address] 04/10/2020 12:00:00 AM EDT eCW1 ([facility]) Unknown [address] [facility] [place] [address] 03/30/2020 12:00:00 AM EDT eCW1 ([facility]) Outpatient Attender: KAYKAY VANEGAS MD Physical Therapy 03:15:00 PM EDT MEDENT ([facility]) Unknown [address] [facility] [address] 03/11/2020 12:00:00 AM EDT eCW1 ([facility]) Outpatient Attender: Birgit CARBALLO PA-C Physical Therapy 02/11/2020 01:15:00 PM EDT MEDENT ([facility]) [place] [address] [facility] [address] 12/27/2019 12:00:00 AM EDT eCW1 ([facility]) Outpatient [address] [facility] [address] 12/24/2019 12:00:00 AM EDT eCW1 ([facility]) Unknown [address] [facility] [place] [address] 12/24/2019 12:00:00 AM EDT eCW1 ([facility]) Unknown [address] [facility] [place] [address] 11/29/2019 12:00:00 AM EDT eCW1 ([facility]) Unknown [address] [facility] [address] 11/12/2019 12:00:00 AM EDT eCW1 ([facility]) [facility] [address] [facility] [place] [address] 10/30/2019 12:00:00 AM EDT eCW1 ([facility]) [facility] [address] [facility] [place] [address] 10/23/2019 12:00:00 AM EDT eCW1 ([facility]) [address] [address] 10/14/2019 12:00:00 AM EDT eCW1 ([facility] [address] [place] [address] 10/04/2019 12:00:00 AM EDT eCW1 ([facility]) Outpatient Attender: Birgit CARBALLO PA-C Physical Therapy 10/03/2019 09:00:00 AM EDT MEDENT ([facility]) [address] [address] 09/18/2019 12:00:00 AM EDT eCW1 ([facility]) Outpatient Attender: Birgit CARBALLO PA-C Physical Therapy 09/12/2019 01:15:00 PM EDT MEDENT ([facility]) [address], [facility] [address] 09/09/2019 12:00:00 AM EDT eCW1 ([facility]) [address] [place] [address] 08/19/2019 12:00:00 AM EDT eCW1 ([facility]) [address] [place] [address] 08/08/2019 12:00:00 AM EST eCW1 ([facility]) [address] [place] [address] 08/02/2019 12:00:00 AM EST eCW1 ([facility]) Emergency Attender: IVETT Stafford: Abhijeet Rivers EMERGENCY ROOM-ER 08/01/2019 01:21:00 PM EST - 08/01/2019 03:25:00 PM [facility] Patient discharged. [address] [place] [address] 08/01/2019 12:00:00 AM EST eCW1 [facility] [address] [place], [facility] [address] 08/01/2019 12:00:00 AM EST eCW1 ([facility]) [facility] [address] [facility] [address] 06/25/2019 12:00:00 AM EST eCW1 ([facility]) [facility] [address] [facility] [address] 06/24/2019 12:00:00 AM EST eCW1 ([facility]) Medications Medication Brand Name Start Date Product [...] Oxycodone-Acetaminophen 07/01/2020 12:00:00 AM EST completed MEDENT ([facility] ) Escitalopram 20 MG Oral Tablet [...] HOURS FOR PAIN MAX=2TABS/DAY SOLD: 06/20/2020 Patrizia Biju gs 50 mg 06/13/2020 12:00:00 AM [...] 12:00:00 AM EST ORAL active MEDENT ([facility]) 5-325 mg 05/22/2020 12:00:00 [...] 05/04/2020 12:00:00 AM EST ORAL active MEDENT ([facility] ) pantoprazole 40 MG Delayed Release Oral [...] Medications 04/10/2020 12:00:00 AM EDT completed MED[facility] ([facility] Naproxen 500 MG Oral Tablet Naproxen 04/10/2020 12:00:00 AM EDT active [facility] ([facility] Morphine Sulfate 15 MG Extended Release Oral Tablet [MS Cont in] MS Contin 04/08/2020 12:00:00 AM EDT ORAL completed MED[facility] ([facility]) Acetaminophen 325 MG / Oxycodone Hydrochloride 5 MG Or al Tablet [Percocet] Percocet 04/08/2020 12:00:00 AM EDT ORAL completed MEDENT ([facility]) 50 mg 03/31/2020 12:00:00 AM [...] DT active Ibuprofen 600 MG eCW1 ([facility]) Ibuprofen 600 MG Oral Tablet Ibuprofen 600 MG 12/24/2019 12:00:00 AM E DT active Ibuprofen 600 MG eCW1 ([facility]) Ibuprofen 600 MG Oral Tablet Ibuprofen 600 MG 12/24/2019 12:00:00 AM E DT active Ibuprofen 600 MG eCW1 ([facility]) Ibuprofen 600 MG Oral Tablet Ibuprofen 600 MG 12/24/2019 12:00:00 AM E DT active Ibuprofen 600 MG eCW1 ([facility]) Ibuprofen 600 MG Oral Tablet Ibuprofen 600 MG 12/24/2019 12:00:00 AM E DT active Ibuprofen 600 MG eCW1 ([facility]) Ibuprofen 600 MG Oral Tablet Ibuprofen 600 MG 12/24/2019 12:00:00 AM E DT active Ibuprofen 600 MG eCW1 ([facility]) Ibuprofen 600 MG Oral Tablet Ibuprofen 600 MG 12/24/2019 12:00:00 AM E DT active Ibuprofen 600 MG eCW1 ([facility]) Ibuprofen 600 MG Oral Tablet Ibuprofen 600 MG 12/24/2019 12:00:00 AM E DT active Ibuprofen 600 MG eCW1 ([facility]) Ibuprofen 600 MG Oral Tablet Ibuprofen 600 MG 12/24/2019 12:00:00 AM E DT active Ibuprofen 600 MG eCW1 ([facility]) Ibuprofen 600 MG Oral Tablet Ibuprofen 600 MG 12/24/2019 12:00:00 AM E DT active Ibuprofen 600 MG eCW1 ([facility]) Ibuprofen 600 MG Oral Tablet Ibuprofen 600 MG 12/24/2019 12:00:00 AM E DT active Ibuprofen 600 MG eCW1 ([facility]) Ibuprofen 600 MG Oral Tablet Ibuprofen 600 MG 12/24/2019 12:00:00 AM E DT active Ibuprofen 600 MG eCW1 ([facility]) Ibuprofen 600 MG Oral Tablet Ibuprofen 600 MG 12/24/2019 12:00:00 AM E DT active Ibuprofen 600 MG eCW1 ([facility]) Ibuprofen 600 MG Oral Tablet Ibuprofen 600 MG 12/24/2019 12:00:00 AM E DT active Ibuprofen 600 MG eCW1 ([facility]) 600 mg 12/24/2019 12:00:00 AM EDT tablet 30 TAKE ONE TABLET BY MOUTH THREE TIMES A DAY NEEDED, WITH FOOD OR MILK TAKE ONE TABLET BY MOUTH THREE TIMES A DAY NEEDED, WITH FOOD OR MILK SOLD: 12/24/2019 [facility] Ibuprofen 600 MG Oral Tablet Ibuprofen 600 MG 12/24/2019 12:00:00 AM E DT active Ibuprofen 600 MG eCW1 ([facility]) 600 mg 12/24/2019 12:00:00 AM EDT tablet 30 TAKE ONE TABLET BY MOUTH THREE TIMES A DAY NEEDED, WITH FOOD OR MILK TAKE ONE TABLET BY MOUTH THREE TIMES A DAY NEEDED, WITH FOOD OR MILK SOLD: 05/17/2020 [facility] Ibuprofen 600 MG Oral Tablet Ibuprofen 600 MG 12/24/2019 12:00:00 AM E DT active Ibuprofen 600 MG eCW1 ([facility]) Ibuprofen 600 MG Oral Tablet Ibuprofen 600 MG 12/24/2019 12:00:00 AM E DT active Ibuprofen 600 MG eCW1 ([facility]) 50 mg 12/11/2019 12:00:00 AM EDT [...] DAY WI TH FOOD AND WATER SOLD: 01/18/2020 [facility] [...] AM EDT active Amitiza 24 MCG eCW1 ([facility]) lubiprostone 0.024 MG Oral Capsule [Amitiza] Amitiza 24 MCG Amitiza 24 MCG 11/29/2019 12:00:00 AM EDT active Amitiza 24 MCG eCW1 ([facility]) lubiprostone 0.024 MG Oral Capsule [Amitiza] Amitiza 24 MCG Amitiza 24 MCG 11/29/2019 12:00:00 AM EDT active Amitiza 24 MCG eCW1 ([facility]) lubiprostone 0.024 MG Oral Capsule [Amitiza] Amitiza 24 MCG Amitiza 24 MCG 11/29/2019 12:00:00 AM EDT active Amitiza 24 MCG eCW1 ([facility]) lubiprostone 0.024 MG Oral Capsule [Amitiza] Amitiza 24 MCG Amitiza 24 MCG 11/29/2019 12:00:00 AM EDT active Amitiza 24 MCG eCW1 ([facility]) lubiprostone 0.024 MG Oral Capsule [Amitiza] Amitiza 24 MCG Amitiza 24 MCG 11/29/2019 12:00:00 AM EDT active Amitiza 24 MCG eCW1 ([facility]) lubiprostone 0.024 MG Oral Capsule [Amitiza] Amitiza 24 MCG Amitiza 24 MCG 11/29/2019 12:00:00 AM EDT active Amitiza 24 MCG eCW1 ([facility]) lubiprostone 0.024 MG Oral Capsule [Amitiza] Amitiza 24 MCG Amitiza 24 MCG 11/29/2019 12:00:00 AM EDT active Amitiza 24 MCG eCW1 ([facility]) lubiprostone 0.024 MG Oral Capsule [Amitiza] Amitiza 24 MCG Amitiza 24 MCG 11/29/2019 12:00:00 AM EDT active Amitiza 24 MCG eCW1 ([facility]) lubiprostone 0.024 MG Oral Capsule [Amitiza] Amitiza 24 MCG Amitiza 24 MCG 11/29/2019 12:00:00 AM EDT active Amitiza 24 MCG eCW1 ([facility]) lubiprostone 0.024 MG Oral Capsule [Amitiza] Amitiza 24 MCG Amitiza 24 MCG 11/29/2019 12:00:00 AM EDT active Amitiza 24 MCG eCW1 ([facility]) lubiprostone 0.024 MG Oral Capsule [Amitiza] Amitiza 24 MCG Amitiza 24 MCG 11/29/2019 12:00:00 AM EDT active Amitiza 24 MCG eCW1 ([facility]) lubiprostone 0.024 MG Oral Capsule [Amitiza] Amitiza 24 MCG Amitiza 24 MCG 11/29/2019 12:00:00 AM EDT active Amitiza 24 MCG eCW1 ([facility]) lubiprostone 0.024 MG Oral Capsule [Amitiza] Amitiza 24 MCG Amitiza 24 MCG 11/29/2019 12:00:00 AM EDT active Amitiza 24 MCG eCW1 ([facility]) lubiprostone 0.024 MG Oral Capsule [Amitiza] Amitiza 24 MCG Amitiza 24 MCG 11/29/2019 12:00:00 AM EDT active Amitiza 24 MCG eCW1 ([facility]) lubiprostone 0.024 MG Oral Capsule [Amitiza] Amitiza 24 MCG Amitiza 24 MCG 11/29/2019 12:00:00 AM EDT active Amitiza 24 MCG eCW1 ([facility]) lubiprostone 0.024 MG Oral Capsule [Amitiza] Amitiza 24 MCG Amitiza 24 MCG 11/29/2019 12:00:00 AM EDT active Amitiza 24 MCG eCW1 ([facility]) lubiprostone 0.024 MG Oral Capsule [Amitiza] Amitiza 24 MCG Amitiza 24 MCG 11/29/2019 12:00:00 AM EDT active Amitiza 24 MCG eCW1 ([facility]) 50 mg 11/13/2019 12:00:00 AM EDT tablet [...] DAY WITH A MEAL SOLD: 10/26/2019 Patrizia D rugs 20 mg 10/14/2019 12:00:00 AM [...] DOSE = 3 TABLETS SOLD: 09/18/2019 [facility] Escitalopram 20 MG Oral Tablet ESCITALOPRAM [...] ONE CAPSULE BY MOUTH TWICE A DAY [facility] FOOD OR WATER SOLD: 08/22/2019 [facility] [...] ONE CAPSULE BY MOUTH TWICE A DAY [facility] FOOD OR WATER SOLD: 09/18/2019 [facility] [...] s Nystatin 100 UNT/MG Topical Powder Nystatin 219184 UNI T/GM Nystatin 984728 UNIT/GM 06/24/2019 12:00:00 AM EST active 1 application eCW1 ([facility]) Fenofibrate 54 MG Oral Tablet FENOFIBRATE 04/25/2019 [...] type / Coverage type Policy ID Covered alliance party ID Covered alliance party's relationship to estevez Policy Estevez Plan Information [facility] [id number] SP [id number] MEDICAID M [id number] Self [id number] [facility] [address] [id number] Self [id number] SELF PAY ONLY [id number] SP [id number] [facility] MEDICAID [id number] S [id number] MEDICAID [id number] [facility] MEDICAID [id number] S [id number] [facility] FAMILY HEALTH PL [id number] S [id number] MEDICAID [id number] SP [id number] [facility] MCDO [id number] SP [id number] [facility] Medicaid Commercial [id number] Self [id number] BC/BS Family Health Plus Medigap Part B [id number] Self [id number] MV Gold Commercial [id number] Self [id number] ANSI-Not a Secondary Insurance [id number] [employer] C[facility] O [id number] S [id number] ANSI-Not a Secondary Insurance [id number] ANSI-Not a Secondary Insurance [id number] MVP MCDO [id number] SP [id number] ANSI-Not a Secondary Insurance [id number] Medicaid Commercial [id number] Self [id number] MVP Medicaid Commercial [id number] Self [id number] BC/BS Family Health Plus Medigap Part B [id number] Self [id number] MVP Gold Commercial [id number] Self [id number] BC/BS Family Health Plus Medigap Part B [id number] Self [id number] MVP Gold Commercial [id number] Self [id number] BC/BS Family Health Plus Medigap Part B [id number] Self [id number] MVP Gold Commercial [id number] Self [id number] MVP MCDO [id number] SP [id number] BC/BS Family Health Plus Medigap Part B [id number] Self [id number] MVP Gold Commercial [id number] Self [id number] UNHC COMMUNITY PLAN MCDO [id number] SP [id number] [facility](MCAID) O [id number] S [id number] UNHC COMMUNITY PLAN MCDO [id number] SP [id number] [facility] MEDICAID CLARY O [id number] S [id number] [facility] [id number] SP [id number] MEDICAID [id number] SP [id number] HMO BLUE [id number] SP [id number] BLUE CROSS GRAY PLAN [id number] SP [id number] [place] [employer] [facility] [id number] SP [id number] BLUE CHOICE OPTION O [id number] S [id number] MEDICAID W [id number] S [id number] BLUE CHOICE OPTION O [id number] S [id number] Problems, Conditions, and Diagnoses Code Display Name Description Problem Type Effective Dates Data Source(s) 91371712 Calcaneal spur Calcaneal spur Problem 04/13/2020 12:00: 00 AM EST MEDENT ([facility] [id number] Plantar fascial fibromatosis Plantar fascial fibromato sis Problem 04/13/2020 12:00:00 AM EST [facility] ([facility] E78.5 Dyslipidemia Dyslipidemia Problem 12/24/2019 12:00:00 A M EDT eCW1 ([facility]) Severe pancreatitis, sepsis secondary to pancreatitis, and SBO Severe pancreatitis, sepsis secondary to pancreatitis, and SBO Diagnosis 07/17/2020 05:45:00 PM [facility] N60.02 Solitary cyst of left breast SOLITARY CYST OF LEFT LIDIA AST Diagnosis 05/18/2020 12:00:00 PM [facility] N60.01 Solitary cyst of right breast SOLITARY CYST OF RIGHT B REAST Diagnosis 05/18/2020 12:00:00 PM [facility] R92.8 Other abnormal and inconclusive findings on diagnostic imaging of breast OTH ABN AND INCONCLUSIVE FINDINGS ON DX IMAGING OF BREAST Diagnosis 05/18/2020 12:00:00 PM [facility] Z12.31 Encounter for screening mammogram for ma lignant neoplasm of breast ENCNTR SCREEN MAMMOGRAM FOR MALIGNANT NEOPLASM OF BREAST Diagnosis 07/2019 10:30:00 AM [facility] J01.00 Acute maxillary sinusitis, unspecified A CUTE MAXILLARY SINUSITIS, UNSPECIFIED Diagnosis 08/01/2019 01:21:[facility] J[facility].9 Unspecified bacterial pneumonia UNSPECIFIED BACTERIAL PNEUMONIA Diagnosis 08/01/2019 01:21:00 PM [facility] R09.3 Abnormal sputum ABNORMAL SPUTUM Diagnosis 08/01/2019 01:2 1:00 PM [facility] Surgeries/Procedures Procedure Description Date Indications Data Source(s) APPLICATION MODALITY 1/> AREAS HOT/COLD PACKS 07/16/19 21 12:00:00 AM EST MEDENT ([facility] ) THERAPEUTIC PX 1/> AREAS EACH 15 MIN EXERCISES 021 12:00:00 AM EST MEDENT ([facility] ) THERAPEUTIC PX 1/> AREAS EACH 15 MIN EXERCISES 021 12:00:00 AM EST [facility] ([facility] ) APPLICATION MODALITY 1/> AREAS HOT/COLD PACKS 07/06/19 21 12:00:00 AM EST [facility] ([facility] ) THERAPEUTIC PX 1/> AREAS EACH 15 MIN EXERCISES 021 12:00:00 AM EST [facility] ([facility] ) APPLICATION MODALITY 1/> AREAS HOT/COLD PACKS 06/17/19 21 12:00:00 AM EST [facility] ([facility] ) THERAPEUTIC PX 1/> AREAS EACH 15 MIN EXERCISES 021 12:00:00 AM EST [facility] ([facility] ) APPLICATION MODALITY 1/> AREAS HOT/COLD PACKS 06/15/19 21 12:00:00 AM EST [facility] ([facility] ) THERAPEUTIC PX 1/> AREAS EACH 15 MIN EXERCISES 021 12:00:00 AM EST [facility] ([facility] ) Physical Therapy Eval - Low Complexity 06/02/2020 12:0 0:00 AM EST [facility] ([facility] ) SHOULDER SCOPE BONE SHAVING 05/20/2020 12:00:00 AM EST [facility] ([facility] ) ARTHROSCOPY SHOULDER ROTATOR CUFF REPAIR 05/20/2020 12 :00:00 AM EST [facility] ([facility] ) Magnetic Resonance Angiogtaphy Head W/O Contrast Material(S) 05/18/2020 12:00:00 AM EST [facility] ([facility]) Magnetic Resonance Angiogtaphy Head W/O Contrast Material(S) 05/18/2020 12:00:00 AM EST [facility] ([facility]) Magnetic Resonance Angiography Neck W/O Contrast Materials 05/18/2020 12:00:00 AM EST [facility] ([facility]) Magnetic Resonance Angiography Neck W/O Contrast Materials 05/18/2020 12:00:00 AM EST [facility] ([facility]) MRI BRAIN BRAIN STEM W/O CONTRAST MATERIAL 05/18/2020 12:00:00 AM EST [facility] ([facility] ) MRI BRAIN BRAIN STEM W/O CONTRAST MATERIAL 05/18/2020 12:00:00 AM EST [facility] ([facility] ) Needle electromyography, each extremity, with related paraspinal areas, when performed, done with nerve conduction, amplitude and latency/velocity study; complete, five or more muscles studied, innervated by three or more nerves or four or more spinal levels (list separately in addition to the code for primary procedure). 05/13/2020 12:00:00 AM EST MEDEN T ([facility], ) Needle electromyography, each extremity, with related paraspinal areas, when performed, done with nerve conduction, amplitude and latency/velocity study; complete, five or more muscles studied, innervated by three or more nerves or four or more spinal levels (list separately in addition to the code for primary procedure). 05/13/2020 12:00:00 AM EST MEDEN T ([facility], ) [address] Nerve conduction studies 13 or more studies NEW 201205/13/2020 12:00:00 AM EST [facility] ([facility] ) TSTG ANS FUNCJ CARDIOVAGAL INNERVAJ PARASYMP 0 12:00:00 AM EST [facility] ([facility] ) TSTG ANS FUNCJ CARDIOVAGAL INNERVAJ PARASYMP 0 12:00:00 AM EST [facility] ([facility] ) TESTING AUTONOMIC NERVOUS SYSTEM FUNCTION 05/13/2020 1 2:00:00 AM EST [facility] ([facility] ) TESTING AUTONOMIC NERVOUS SYSTEM FUNCTION 05/13/2020 1 2:00:00 AM EST [facility] ([facility] ) NON-INVASIVE PHYSIOLOGIC STUDY EXTREMITY 3 LEVLS 05/13 12:00:00 AM EST [facility] ([facility] ) APPLICATION MODALITY 1/> AREAS HOT/COLD PACKS 04/30/20 20 12:00:00 AM EST [facility] ([facility] ) THERAPEUTIC PX 1/> AREAS EACH 15 MIN EXERCISES 020 12:00:00 AM EST [facility] ([facility] ) Physical Therapy Eval - Low Complexity 04/24/2020 12:0 0:00 AM EST [facility] ([facility] ) Strapping Foot Or Ankle 04/10/2020 12:00:00 AM EDT [facility] ([facility] RADEX FOOT COMPLETE MINIMUM 3 VIEWS 04/10/2020 12:00:0 0 AM EDT [facility] ([facility] ARTHROCENTESIS ASPIR&/INJECTION MAJOR JT/BURSA 020 12:00:00 AM EDT [facility] ([facility]) RADEX SHOULDER COMPLETE MINIMUM 2 VIEWS 09/12/2019 12: 00:00 AM EDT [facility] ([facility]) Results ID Date Data Source [id number] 07/31/2020 12:49:00 PM EST [facility] Name Value Range Interpretation Code Description Data Ammy rce(s) Supporting Document(s) Microorganism or agent identified in Unspecified speci men Negative for SARS-CoV-2 RNA. [facility] This lab was ordered by [facility] and reported by Department of Pathology and Laboratory Medicine at [facility]. ID Date Data Source [id number] 07/26/2020 04:43:00 PM EST [facility] Name Value Range Interpretation Code Description Data Ammy rce(s) Supporting Document(s) Microorganism or agent identified in Unspecified speci men Negative for SARS-CoV-2 RNA. [facility] This lab was ordered by [facility] and reported by Department of Pathology and Laboratory Medicine at [facility]. ID Date Data Source [id number] 07/17/2020 09:51:00 AM EST [facility] Name Value Range Interpretation Code Description Data Ammy rce(s) Supporting Document(s) SARS coronavirus 2 RNA [Presence] in Res piratory specimen by VERA with probe detection NEGATIVE [facility] This lab was ordered by [facility] a nd reported by [facility]. ID Date Data Source [id number] 06/20/2020 12:00:00 AM EST [facility] Name Value Range Interpretation Code Description Data Ammy rce(s) Supporting Document(s) SARS-CoV-2 (COVID-19) RNA [Presence] in Respiratory specimen by VERA with probe detection Not Detected [facility] This lab was ordered by [facility] and reported by [employer] ID Date Data Source [id number] 05/19/2020 10:12:00 AM EST [facility] [...] rce(s) Supporting Document(s) ID Date Data Source [id number] 05/19/2020 10:12:00 AM EST [facility] [...] rce(s) Supporting Document(s) ID Date Data Source [id number] 05/18/2020 03:10:00 PM EST [facility] [...] MAMMO 05/18/2020 12:00:00 AM EST eCW1 ( [facility]) Name Value Range Interpretation Code Description Data Ammy rce(s) Supporting Document(s) DIAGNOSTIC BILATERAL MAMMO eCW 1 ([facility]) ID Date Data Source [id number] 05/15/2020 10:00:00 AM EST [facility] ([facility]) Name Value Range Interpretation Code Description Data Ammy rce(s) Supporting Document(s) Coronavirus 2019 Nasopharygeal Laboratory test result [facility] ([facility]) This nucleic acid amplification test was developed and its performance characteristics determined by [employer] Nucleic acid amplification tests include PCR and [...] detected) result in this assay. Performed at: [facility] [address] [place], [place] [id number] Lead Sustainability Specialist: Maeve Mcfadden PhD, Phone: [phone] Not Detected ID Date Data Source [id number] 05/15/2020 10:00:00 AM EST [facility] Name Value Range Interpretation Code Description Data Ammy rce(s) Supporting Document(s) SARS [facility] 2 [facility] This lab was ordered by [facility] and reported by [facility]. ID Date Data Source [id number] 05/13/2020 01:47:00 PM EST [facility] ([facility] ) Name Value Range Interpretation Code Description Data Ammy rce(s) Supporting Document(s) Rheumatoid factor [Units/volume] in Serum or Plasma Laborato ry test result 0.0-13.9 [facility] ([facility] ) Thyrotropin [Units/volume] in Serum or Plasma 2.250 uIU/mL 0.450-4.50 0 [facility] ([facility] ) Erythrocyte sedimentation rate by 2H Westergren method 22 mm/hr 0-4 0 [facility] ([facility], ) Nuclear Ab [Titer] in Serum by Immunofluorescence Laboratory test res ult [facility] ([facility], ) <content>Negative <1:80</content>
<content>Borderline 1:80</content>
<content>Positive >1:80</content>
<content></content> Calcidiol [Mass/volume] in Serum or Plasma 31.6 ng/mL 30.0-100.0 [facility] ([facility] ) Vitamin D deficiency has been defined by the [place] of Medicine and an Endocrine Society practice guideline as a level of serum 25-OH vitamin D less than 20 ng/mL (1,2). The Endocrine Society went on to further define vitamin D insufficiency as a level between 21 and 29 ng/mL (2). 1. IOM ([place] of Medicine). 2010. Di etary reference intakes for calcium and D. [place]: The National Academies Press. 2. Franchesca MF, aGvi GILLIAM, Levy ramos VELASCO, et al. Evaluation, treatment, and prevention of vitamin D deficiency: an Endocrine Society clinical practice guideline. JCEM. 2010; 96(4):1911-30. Laboratory test finding (navigational concept) Laboratory test result [facility] ([facility]) ID Date Data Source [id number] 05/13/2020 01:47:00 PM EST [facility] ([facility]) Name Value Range Interpretation Code Description Data Ammy rce(s) Supporting Document(s) Creatinine [Mass/volume] in Serum or Plasma 0.98 mg/dL 0.57-1.00 [facility] ([facility]) Urea nitrogen [Mass/volume] in Serum or Plasma 19 mg/dL 6-24 [facility] ([facility]) Glucose [Mass/volume] in Serum or Plasma 95 mg/dL 65-99 [facility] ([facility]) Urea nitrogen/Creatinine [Mass Ratio] in Serum or Plasma 19 9 -23 [facility] ([facility]) eGFR If Africn Am 74 mL/min/1.73 [facility] ([facility]) eGFR If NonAfricn Am 64 mL/min/1.73 MEDE NT ([facility]) Sodium [Moles/volume] in Serum or Plasma 142 mmol/L 134-144 [facility] ([facility]) Chloride [Moles/volume] in Serum or Plasma 104 mmol/L 96-106 [facility] ([facility]) Potassium [Moles/volume] in Serum or Plasma 5.1 mmol/L 3.5-5.2 [facility] ([facility]) Calcium [Mass/volume] in Serum or Plasma 9.7 mg/dL 8.7-10.2 [facility] ([facility]) Protein [Mass/volume] in Serum or Plasma 6.7 g/dL 6.0-8.5 [facility] ([facility]) Carbon dioxide, total [Moles/volume] in Serum or Plasma 26 mmol/L 20 -29 [facility] ([facility]) Globulin [Mass/volume] in Serum by calculation 2.3 g/dL 1.5-4.5 [facility] ([facility]) Albumin/Globulin [Mass Ratio] in Serum or Plasma 1.9 1.2-2.2 [facility] Albumin [Mass/volume] in Serum or Plasma 4.4 g/dL 3.8-4.9 [facility] ([facility]) Bilirubin.total [Mass/volume] in Serum or Plasma Laboratory test result 0.0-1.2 [facility] Alkaline phosphatase [Enzymatic activity/volume] in Serum or Plasma 85 IU/L 39-117 [facility] Aspartate aminotransferase [Enzymatic activity/volume] in Serum or Plasma 24 IU/L 0-40 [facility] Alanine aminotransferase [Enzymatic activity/volume] in Seru m or Plasma 27 IU/L 0-32 [facility] ID Date Data Source [id number] 05/13/2020 01:47:00 PM EST [facility] ([facility]) Name Value Range Interpretation Code Description Data Ammy rce(s) Supporting Document(s) Leukocytes [#/volume] in Blood by Automated count 10.4 x10E3/uL 3.4-1 0.8 [facility] Hematocrit [Volume Fraction] of Blood by Automated count 43.8 % 3 4.0-46.6 [facility] Hemoglobin [Mass/volume] in Blood 14.3 g/dL 11.1-15.9 [facility] ([facility]) Erythrocytes [#/volume] in Blood by Automated count 5.12 x10E6/uL 3.7 7-5.28 [facility] Erythrocyte mean corpuscular hemoglobin [Entitic mass] by Automated count 27.9 pg 26.6-33.0 [facility] ([facility] ) Erythrocyte mean corpuscular volume [Entitic volume] by Auto mated count 86 fL 79-97 [facility] Erythrocyte mean corpuscular hemoglobin concentration [Mass/volume] by Automated count 32.6 g/dL 31.5-35.7 [facility] Erythrocyte distribution width [Ratio] by Automated count 13.5 % 11.7-15.4 [facility] ([facility]) Platelets [#/volume] in Blood by Automated count 354 x10E3/uL 150-450 [facility] ([facility]) Neutrophils/100 leukocytes in Blood by Automated count 59 % [facility] ([facility]) Monocytes/100 leukocytes in Blood by Automated count 7 % [facility] ([facility]) Eosinophils/100 leukocytes in Blood by Automated count 1 % [facility] ([facility]) Lymphocytes/100 leukocytes in Blood by Automated count 31 % [facility] ([facility]) Neutrophils [#/volume] in Blood by Automated count 6.2 x10E3/uL 1.4-7 .0 [facility] ([facility]) Basophils/100 leukocytes in Blood by Automated count 1 % [facility] ([facility]) Immature cells [#/volume] in Blood Laboratory test result [facility] ([facility]) Monocytes [#/volume] in Blood 0.8 x10E3/uL 0.1-0.9 [facility] ([facility]) Lymphocytes [#/volume] in Blood 3.2 x10E3/uL 0.7-3.1 [facility] ([facility]) Immature granulocytes/100 leukocytes in Blood by Automated count 1 % [facility] ([facility]) Basophils [#/volume] in Blood by Automated count 0.1 x10E3/uL 0.0-0.2 [facility] ([facility]) Eosinophils [#/volume] in Blood by Automated count 0.1 x10E3/uL 0.0-0 .4 [facility] ([facility]) Immature granulocytes [#/volume] in Blood by Automated count 0.1 x10E3/uL 0.0-0.1 [facility] ([facility]) Morphology [Interpretation] in Blood Narrative Laboratory test result [facility] ([facility]) Nucleated erythrocytes/100 leukocytes [Ratio] in Blood by Automated count Laboratory test result [facility] ([facility]) ID Date Data Source [id number] 05/13/2020 01:27:00 PM [facility] [...] analyzed through the latest version of the [employer] computer aid eddiagnosis system. The patient states [...] rce(s) Supporting Document(s) ID Date Data Source [id number] 03/02/2020 12:00:00 AM EDT [facility] Name Value Range Interpretation Code Description Data Ammy rce(s) Supporting Document(s) SARS coronavirus 2 RNA [facility] This lab was ordered by [facility] and rep orted by [facility]. ID Date Data Source [id number] 08/01/2019 06:27:00 PM EST [facility] Patient: MATTHEW CALVIN Observation Report - [facility].VisitID: [id number] [place] [address] [phone], [facility] Date/Time: 08/01/2019 12:44 Weight:99.7 kg (S). Height/Length:66 [...] Name Value Range Interpretation Code Description [facility] Document(s) ID Date Data Source [id number] 08/01/2019 01:22:00 PM EST [facility] [...] rce(s) Supporting Document(s) ID Date Data Source [id number] 08/01/2019 01:49:00 PM [facility] l TSYSORDER [id number] Name Value Range Interpretation Code Description Data [facility] Supporting Document(s) GLUCOSE 92 mg/dL 74-106 [facility] BLOOD UREA NITROGEN 20 mg/dL 7-18 [facility] ital CREATININE 1.1 mg/dL 0.6-1.0 H [facility] SODIUM 141 mmol/L 136-145 [facility] POTASSIUM 3.6 mmol/L 3.5-5.1 [facility] CHLORIDE 103 mmol/L 98-107 [facility] CO2 27 mmol/L 21-32 [facility] CALCIUM 9.4 mg/dL 8.5-10.1 [facility] ANION GAP 11.0 mmol/L 5-12 [facility] GLOMERULAR FILTRATION RATE 51 mL/min [facility] GFR IS CALCULATED IN mL/min/1.73m2 YULIANA L FUNCTION: >90MILDLY DECREASED: 60-89MILDY TO MODERATELY DECREASED: 45-59 MODERATELY TO SEVERELY DECREASED: 30-44SEVERELY DECREASED: 15-29RENAL FAILURE: <15 AST 20 U/L 15-37 [facility] ALT 26 U/L 12-78 [facility] ALKALINE PHOSPHATASE 81 U/L 46-116 [facility] pital TOTAL BILIRUBIN 0.3 mg/dL 0.2-1.0 [facility] TOTAL PROTEIN 8.3 g/dl 6.4-8.2 H [facility] ALBUMIN 4.4 gm/dL 3.4-5.0 [facility] ID Date Data Source [id number] 08/01/2019 01:31:00 PM [facility] l TSYSORDER [id number] Name Value Range Interpretation Code Description Data [facility](s) Supporting Document(s) WHITE BLOOD COUNT 11.5 K/mm3 4.0-10.0 [facility] RED BLOOD COUNT 5.20 M/mm3 4.00-5.50 [facility] HEMOGLOBIN 14.7 gm/dL 12.0-16.0 [facility] HEMATOCRIT 45.4 % 36.0-48.8 [facility] MEAN CELL VOLUME 87.3 fl 80-96 [facility] MEAN CORPUSCULAR HEMOGLOBIN 28.3 pg 27.0-31.0 [facility] MEAN CORPUSCULAR HGB CONC 32.4 g/dl 32.0-36.0 [facility] RED CELL DISTRIBUTION WIDTH 13.5 % 10.0-14.5 [facility] PLATELET COUNT 350 K/mm3 172-450 [facility] MEAN PLATELET VOLUME 9.3 fl 9.0-13.0 [facility] pital GRAN % 58.3 % 50-80.0 [facility] IG% 0.7 % 0.0-0.2 H [facility] LYMPH % 30.0 % 25.0-50.0 [facility] MONO % 9.1 % 2.0-10.0 [facility] EOS % 1.5 % 0-5.0 [facility] BASO % 0.4 % 0.0-2.0 [facility] GRAN # 6.7 K/mm3 2.0-8.00 [facility] IG# 0.1 K/mm3 0.0-0.2 [facility] LYMPH # 3.4 K/mm3 1.0-5.0 [facility] MONO # 1.0 K/mm3 0.10-1.20 [facility] EOS # 0.2 K/mm3 0.0-0.5 [facility] BASO # 0.1 K/mm3 0.0-0.2 [facility] ID Date Data Source [id number] 08/01/2019 01:31:00 PM [facility] l TSYSORDER [id number] Name Value Range Interpretation Code Description Data Ammy rce(s) Supporting Document(s) INFLUENZA A NEGATIVE NEGATIVE [facility] INFLUENZA B NEGATIVE NEGATIVE [facility] This is a rapid molecular in vitro [...] EST Former Smoker completed Former Smoker eCW1 ([facility]) Smoking 07/08/2020 12:00:00 AM EST Former Smoker completed Former Smoker eCW1 ([facility]) Smoking 07/08/2020 12:00:00 AM EST Former Smoker completed Former Smoker eCW1 ([facility]) Smoking 07/08/2020 12:00:00 AM EST Former Smoker completed Former Smoker eCW1 ([facility]) Smoking 07/08/2020 12:00:00 AM EST Former Smoker completed Former Smoker eCW1 ([facility]) Smoking 12/24/2019 12:00:00 AM EDT Former Smoker completed Former Smoker eCW1 ([facility]) Smoking 12/24/2019 12:00:00 AM EDT Former Smoker completed Former Smoker eCW1 ([facility]) Smoking 12/24/2019 12:00:00 AM EDT Former Smoker completed Former Smoker eCW1 ([facility]) Smoking 12/24/2019 12:00:00 AM EDT Former Smoker completed Former Smoker eCW1 ([facility]) Smoking 12/24/2019 12:00:00 AM EDT Former Smoker completed Former Smoker eCW1 ([facility]) Smoking 12/24/2019 12:00:00 AM EDT Former Smoker completed Former Smoker eCW1 ([facility]) Smoking 12/24/2019 12:00:00 AM EDT Former Smoker completed Former Smoker eCW1 ([facility]) Smoking 12/24/2019 12:00:00 AM EDT Former Smoker completed Former Smoker eCW1 ([facility]) Smoking 12/24/2019 12:00:00 AM EDT Former Smoker completed Former Smoker eCW1 ([facility]) Smoking 12/24/2019 12:00:00 AM EDT Former Smoker completed Former Smoker eCW1 ([facility]) Smoking 12/24/2019 12:00:00 AM EDT Former Smoker completed Former Smoker eCW1 ([facility]) Smoking 12/24/2019 12:00:00 AM EDT Former Smoker completed Former Smoker eCW1 ([facility]) Smoking 08/08/2019 12:00:00 AM EST Former Smoker completed Former Smoker eCW1 ([facility]) Smoking 08/08/2019 12:00:00 AM EST Former Smoker completed Former Smoker eCW1 ([facility]) Vital Signs ID Date Data Source [id number] Name Value Range Interpretation Code Description Data Source(s) Diastolic blood pressure 74 mm[Hg] 74 mm[Hg] eCW1 ([facility]) Systolic blood pressure 118 mm[Hg] 118 mm[Hg] e CW1 ([facility]) Body temperature 97.6 [degF] 97.6 [degF] eCW1 ( [facility]) Respiratory rate 18 /min 18 /min eCW1 ([facility]) Heart rate 89 /min 89 /min [facility]CW1 ([facility]) Body mass index (BMI) [Ratio] 36.15 kg/m2 36.15 kg/m2 eCW1 ([facility]) Body height 66 [in_i] 66 [in_i] eCW1 ([facility]) Body weight 101.6 kg 101.6 kg eCW1 ([facility]) Body weight 224 [lb_av] 224 [lb_av] eCW1 ([facility]) Body mass index (BMI) [Ratio] 35.5 kg/m2 35.5 k g/m2 [facility] ([facility] ) Body weight 220.00 [lb_av] 220.00 [lb_av] MEDEN T ([facility] ) Body height 66 [in_i] 66 [in_i] [facility] ([facility]) 5'6" Body temperature 96.8 [degF] 96.8 [degF] [facility] ([facility] ) Diastolic blood pressure 81 mm[Hg] 81 mm[Hg] [facility] ([facility] Systolic blood pressure 118 mm[Hg] 118 mm[Hg] M EDENT ([facility] Body weight 219.00 [lb_av] 219.00 [lb_av] MEDEN T ([facility] Body height 66 [in_i] 66 [in_i] [facility] ([facility] 5'6" Body mass index (BMI) [Ratio] 35.3 kg/m2 35.3 k g/m2 [facility] ([facility] Heart rate 92 /min 92 /min [facility] ([facility] Diastolic blood pressure 86 mm[Hg] 86 mm[Hg] eCW1 ([facility]) Systolic blood pressure 127 mm[Hg] 127 mm[Hg] e CW1 ([facility]) Body temperature 97.1 [degF] 97.1 [degF] eCW1 ( [facility]) Respiratory rate 18 /min 18 /min eCW1 ([facility]) Heart rate 88 /min 88 /min eCW1 ([facility]) Body mass index (BMI) [Ratio] 35.67 kg/m2 35.67 kg/m2 eCW1 ([facility]) Body height 66 [in_i] 66 [in_i] eCW1 ([facility]) Body weight 221 [lb_av] 221 [lb_av] eCW1 ([facility]) Diastolic blood pressure 81 mm[Hg] 81 mm[Hg] eCW1 ([facility]) Systolic blood pressure 118 mm[Hg] 118 mm[Hg] e CW1 ([facility]) Body temperature [degF] eCW1 ([facility]) Respiratory rate 18 /min 18 /min eCW1 ([facility]) Heart rate 92 /min 92 /min eCW1 ([facility]) Body mass index (BMI) [Ratio] 35.34 kg/m2 35.34 kg/m2 eCW1 ([facility]) Body height 66 [in_us] 66 [in_us] eCW1 ([facility]) Body weight Measured 219 [lb_av] 219 [lb_av] eC W1 ([facility]) ID Date Data Source [id number] 07/17/2020 05:45:49 PM [facility] Name Value Range Interpretation Code Description Data Source(s) TRANSFER FROM [facility] Patient Treatment Plan of Care Planned Activity Planned Date Details Description Data Source (s) Ibuprofen 600 MG Oral Tablet 12/24/2019 12:00:00 AM EDT eCW1 ([facility]) Ibuprofen 600 MG Oral Tablet 12/24/2019 12:00:00 AM EDT eCW1 ([facility]) Ibuprofen 600 MG Oral Tablet 12/24/2019 12:00:00 AM EDT eCW1 ([facility]) Ibuprofen 600 MG Oral Tablet 12/24/2019 12:00:00 AM EDT eCW1 ([facility]) Ibuprofen 600 MG Oral Tablet 12/24/2019 12:00:00 AM EDT eCW1 ([facility]) Ibuprofen 600 MG Oral Tablet 12/24/2019 12:00:00 AM EDT eCW1 ([facility]) Ibuprofen 600 MG Oral Tablet 12/24/2019 12:00:00 AM EDT eCW1 ([facility]) Ibuprofen 600 MG Oral Tablet 12/24/2019 12:00:00 AM EDT eCW1 ([facility]) Ibuprofen 600 MG Oral Tablet 12/24/2019 12:00:00 AM EDT eCW1 ([facility]) Ibuprofen 600 MG Oral Tablet 12/24/2019 12:00:00 AM EDT eCW1 ([facility]) Ibuprofen 600 MG Oral Tablet 12/24/2019 12:00:00 AM EDT eCW1 ([facility]) Ibuprofen 600 MG Oral Tablet 12/24/2019 12:00:00 AM EDT eCW1 ([facility]) lubiprostone 0.024 MG Oral Capsule [Amitiza] 11/29/2019 12:00:00 AM EDT eCW1 ([facility]) lubiprostone 0.024 MG Oral Capsule [Amitiza] 11/29/2019 12:00:00 AM EDT eCW1 ([facility]) lubiprostone 0.024 MG Oral Capsule [Amitiza] 11/29/2019 12:00:00 AM EDT eCW1 ([facility]) lubiprostone 0.024 MG Oral Capsule [Amitiza] 11/29/2019 12:00:00 AM EDT eCW1 ([facility]) lubiprostone 0.024 MG Oral Capsule [Amitiza] 11/29/2019 12:00:00 AM EDT eCW1 ([facility]) lubiprostone 0.024 MG Oral Capsule [Amitiza] 11/29/2019 12:00:00 AM EDT eCW1 ([facility]) lubiprostone 0.024 MG Oral Capsule [Amitiza] 11/29/2019 12:00:00 AM EDT eCW1 ([facility]) lubiprostone 0.024 MG Oral Capsule [Amitiza] 11/29/2019 12:00:00 AM EDT eCW1 ([facility]) lubiprostone 0.024 MG Oral Capsule [Amitiza] 11/29/2019 12:00:00 AM EDT eCW1 ([facility]) lubiprostone 0.024 MG Oral Capsule [Amitiza] 11/29/2019 12:00:00 AM EDT eCW1 ([facility]) lubiprostone 0.024 MG Oral Capsule [Amitiza] 11/29/2019 12:00:00 AM EDT eCW1 ([facility]) lubiprostone 0.024 MG Oral Capsule [Amitiza] 11/29/2019 12:00:00 AM EDT eCW1 ([facility]) lubiprostone 0.024 MG Oral Capsule [Amitiza] 11/29/2019 12:00:00 AM EDT eCW1 ([facility]) Nystatin 100 UNT/MG Topical Powder 06/24/2019 12:00:00 AM EST eCW1 ([facility])
[2020-08-04] MEDS ORDERED: ONDANSETRON 4MG/2ML VIAL IV ONE (18:30)
[2020-08-04] MEDS ORDERED: ZONISAMIDE 50 MG CAP (ZONEGRAN) JT SCH (21:00)
[2020-08-04] MEDS: MAGIC MOUTHWASH SUSPENSION BTL SSP SCH (21:11)
[2020-08-04] MEDS: ENOXAPARIN 100MG/1ML SYRINGE (J1650 PER 10MG) SC SCH (21:14)
[2020-08-04] MEDS: MIRALAX *UNIT DOSE* 17GM PACKET JT SCH (21:16)
[2020-08-04] MEDS: DOCUSATE SOD LIQ 100MG/10ML UDC JT SCH (21:16)
[2020-08-04] MEDS: ONDANSETRON 4 MG ORAL DISINTEGRATING TAB PO PRN (21:17)
[2020-08-04] MEDS: RAMELTEON 8 MG TAB (ROZEREM) JT SCH (21:18)
[2020-08-04] MEDS: oxyCODONE 5MG TAB JT PRN (21:18)
[2020-08-04] MEDS: SENNA 8.6 MG TAB (SENOKOT) JT SCH (21:18)
--- NOTE | 2020-08-04 21:25 | HPEPDOC ---
Admitting Representative Note DATE OF ADMISSION: 08-04-20 DATE OF SERVICE: 08-04-20 TIME OF ADMISSION: Please refer to physician's admission order. SOURCE OF ADMISSION INFORMATION: [facility] record and patient CHIEF COMPLAINT: weakness in setting of pancreatitis HISTORY OF PRESENT ILLNESS: 59F pmh diverticulosis with multiple abdominal surgeries, pancreatitis from previous gallbladder surgery, GERD, hiatal hernia, gastroparesis, low back pain, recent left shoulder RTC repair presented to [facility] on 08-01-20 for worsening abdominal pain after recent acute pancreatitis and SBO treated at [facility] where she was treated medically at first then had a duodenal lesion biopsy and G-J ostomy tube placed 07-29-20. She was evaluated by in house surgery who recommended continuation of tube feeds until near resolution of her retroperitoneal hematoma, with CT on 08-02-20 showing, "Slightly smaller retroperitoneal hyperdense fluid collection near the pancreatic head and uncinate process representing hemorrhagic pancreatitis or retroperitoneal bleed" and she was started on therapeutic Lovenox with bridge to Coumadin for portal vein thrombosis seen on CT abdomen/pelvis. She was noted to have some vaginal spotting, however her Hgb/Hct remained stable. She had considerable weakness and difficulty with ADLs and mobility, deemed medically appropriate for discharge to ARU on 08-04-20. On initial eval patient reports she feels depressed and would like to start back on her Lexapro. She also reports itching and burning with urination and persistent nausea and vomiting. She states she finally had one BM, but feels constipated. REVIEW OF SYSTEMS: The following is a completed review of systems and has been reviewed. Review of systems otherwise unremarkable. PAIN: Patient self reports abdominal pain EYES: No recent vision changes EARS, NOSE, & THROAT: No throat pain, or dysphagia, or rhinorrhea CARDIOVASCULAR: Denies chest pain or palpitations PULMONARY: Denies shortness of breath GASTROINTESTINAL: + constipation GENITOURINARY: +dysuria MUSCULOSKELETAL: LUE weakness due to recent RTC surgery NEUROLOGICAL:no paresthesias or tremor HEMATOLOGICAL: denies easy bruising SKIN: no rash PSYCHIATRIC: +depressed All other review of systems found to be negative. PAST MEDICAL HISTORY: as per HPI PAST SURGICAL HISTORY: As per HPI and hernia repair, colonoscopy/endoscopy, right carpal tunnel surgery ALLERGIES: Please see below. MEDICATIONS: Please see below. FAMILY HISTORY: Cardiac, emphysema SOCIAL HISTORY: Ex-smoker, no etoh/illicit drugs DIET: NPO PHYSICAL EXAMINATION: VITAL SIGNS: Please see below. GENERAL: Pleasant and cooperative. No acute distress. HEENT: PERRL. Extraocular movements intact. Clear conjunctiva CARDIOVASCULAR: Regular rate and rhythm. No murmurs, rubs, or gallops LUNGS: Clear to auscultation bilaterally. No wheezes. No rhonchi ABDOMEN: mildly distended, soft, no rebound tenderness, some RLQ TTP. Positive bowel sounds. Normal active bowel sounds NEUROLOGICAL: Alert and oriented times three. Cranial nerves II through XII grossly intact. Sensation grossly intact EXTREMITIES: 5\\5 strength bilateral upper extremities. 5\\5 strength right lower extremity. 5/5 strength in left lower extremity. SKIN: abdominal ostomy site, no qi-incisional induration LABORATORY DATA: Please see below. IMAGING: Imaging documentation personally reviewed by record FUNCTIONAL STATUS: Premorbid:Independent with all activities of daily life as well as mobility On Admission: Contact guard for bed mobility, transfers, ambulation GOALS: Mod-I with RW community distance, functional transfers, dressing toileting, bathing ASSESSMENT:59-year-old F with past medical history of pancreatitis who presents status post new episode of pancreatitis s/p G-J tube placement PLAN: 1. Rehab- PT/OT advance mobility and ADLs, strengthen/stretch/maintain ROM all 4 limbs, LUE precautions in place for RTC surgery performed 05-20-21 2. Cardiac- HLD c/u statin and fenofibrate -monitor BPs, medicine consulted to assist in management 3. Neuro- hx of migraines, on Zonisamide 4. Resp- monitor for infection, encourage incentive spirometry 5. GI- patient with G-J tube in place for acute pancreatitis, NPO, c/u tube feeds, surgery following, can take up to 4-6 weeks for hematoma to resolve and be safe for po intake, will consider ID consult as patient currently not on antibiotic coverage -c/u zofran for nausea, monitor for infection -pepcid BID for ppx 6. Vasc- patient on Lovenox-Coumadin bridge for portal vein thrombosis, monitor daily INR and H/H- may switch to DOAC upon d/c from ARU, treat for 6 months total 7. - patient with dysuria will order UA/Ucx 8. Ortho- f/u with ortho for left RTC surgery performed 05-20-[address] Nixon 9. Psych- will restart lexapro for depression 10. Lap Grinder- vaginal spotting, will monitor H/H and consider inhouse US to check for intrauterine mass, will schedule f/u with popped corn oven attendant on d/c 11. Dispo-TBD POST ADMISSION PHYSICIAN EVALUATION: Medical and functional status: Description of medical status, medical assessment: As above. Rehabilitation diagnosis and current and prior cold morbid medical conditions as above. Risk of complications and plans to mitigate them as above. Description of functional status current status is as above. Prior status as above. Status compared to preadmission: There are no clinically significant differences between the patient's current status and the information described on the preadmission screening document. Treatment plan anticipated: Treatment plan is as described above. Required disciplines including physical therapy, occupational therapy, others as noted above. Intensity of services: 3 hours a day, 6 days a week. Special considerations: There are no specific special or safety considerations that would likely preclude immediate implementation of an intensive rehabilitation program or subsequently influence the plan of care. ATTESTATION: Considering all the information above, it is my best judgment that this patient requires intensive rehabilitation therapy as described above and an inpatient hospital environment due to the complexity of nursing, medical, and rehabilitation needs required by the patient. Furthermore, this patient can reasonably be expected to participate in an benefit from an inpatient rehabilita tion stay with an interdisciplinary team approach to the delivery of rehabilitation care under the direction and supervision of rehabilitation physician. PROGNOSIS: good ESTIMATED LENGTH OF STAY:10-14 days. PROJECTED DISCHARGE DESTINATION: Home with family support and any durable medical equipment required to increase functional safety and mobility. TIME SPENT COUNSELING AND COORDINATING INITIAL CARE: Greater than 70 minutes. Vital Signs Vital Sign - Last 24 Hours 08/04/20 08/04/20 18:00 21:18 Temp 98.6 Pulse 99 Resp 20 18 B/P (MAP) 132/95 (107) Pulse Ox 98 O2 Delivery Room Air Home Medications Scheduled Atorvastatin Calcium (Atorvastatin Calcium) 40 Mg Tab, 40 MG PO DAILY, (Reported) Bisacodyl (Bisacodyl) 10 Mg Supp.rect, 10 MG MO DAILY Docusate Sodium (Docu Liquid) 50 Mg/5 Ml Liquid, 200 MG JT BID Enoxaparin Sodium (Lovenox) 100 Mg/1 Ml Syringe, 100 MG SC Q12H Ergocalciferol (Vitamin D2) (Vitamin D2) 50,000 Units Cap, 50,000 UNITS PO QWEEK, (Reported) SATURDAYS Escitalopram Oxalate (Lexapro) 20 Mg Tablet, 20 MG PO DAILY, (Reported) Famotidine (Famotidine) 20 Mg Tablet, 40 MG JT DAILY Fenofibrate (Fenofibrate) 54 Mg Tab, 54 MG PO DAILY, (Reported) Magnesium Oxide (Magnesium Oxide) 400 Mg Tablet, 400 MG JT DAILY Polyethylene Glycol 3350 (Polyethylene Glycol 3350) 17 Gm Powd.pack, 1 PKT JT BID Zonisamide (Zonegran) 100 Mg Capsule, 100 MG JT BID Scheduled PRN Melatonin (Melatonin) 3 Mg Capsule, 3 MG PO QHS PRN for SLEEP, (Reported) Allergies Coded Allergies: TAPE (Verified Allergy, Mild, PLASTIC TAPE = RASH, 06/08/18) A-FIB/CHADSVASC A-FIB History Current/History of A-Fib/PAF?: No Current PO Anticoag Therapy: Yes SANDY BRANNON MD Aug 04, 2020 21:25
[2020-08-04 22:00] VITALS: BP 162/78
[2020-08-05] MEDS: ONDANSETRON 4 MG ORAL DISINTEGRATING TAB PO PRN (05:30)
[2020-08-05] MEDS: oxyCODONE 5MG TAB JT PRN ×2 (05:31→09:44)
[2020-08-05 06:00] VITALS: BP 127/78
[2020-08-05 07:03] LABS: HEMATOCRIT 40.3 % (36.0-47.0); HEMOGLOBIN 13.1 g/dl (12.0-15.5); MEAN CORPUSCULAR HEMOGLOBIN 27.2 pg (27.0-33.0); MEAN CORPUSCULAR HGB CONC 32.5 g/dl (32.0-36.5); MEAN CORPUSCULAR VOLUME 83.8 fl (80.0-96.0); PLATELET COUNT, AUTOMATED 763 10^3/uL (150-450); RED BLOOD COUNT 4.81 10^6/uL (4.00-5.40)
[2020-08-05 07:04] LABS: WHITE BLOOD COUNT 19.3 10^3/uL (4.0-10.0)
[2020-08-05 07:15] LABS: INR 1.31; PROTHROMBIN TIME 16.6 SECONDS (12.5-14.3)
[2020-08-05 07:31] LABS: CALCIUM LEVEL 10.1 MG/DL (8.5-10.1); CREATININE FOR GFR 1.01 MG/DL (0.55-1.30); GLOMERULAR FILTRATION RATE 59.9 (>51); POTASSIUM SERUM 4.3 MEQ/L (3.5-5.1)
[2020-08-05 07:38] LABS: ATYPICAL LYMPH 1 % (0-5); BASOPHILS 1 % (0-1); EOSINOPHILS 1 % (0-3); LYMPHOCYTES 14 % (16-44); METAMYELOCYTES 4 % (0-0); MONOCYTES 6 % (0-5); MYELOCYTES 1 % (0-0); NEUTROPHILS 72 % (28-66); PLATELET ESTIMATE NORMAL (NORMAL)
[2020-08-05] MEDS: ENOXAPARIN 100MG/1ML SYRINGE (J1650 PER 10MG) SC SCH ×2 (08:53→22:21)
[2020-08-05] MEDS: DOCUSATE SOD LIQ 100MG/10ML UDC JT SCH ×2 (08:53→16:00)
[2020-08-05] MEDS: MIRALAX *UNIT DOSE* 17GM PACKET JT SCH (08:53)
[2020-08-05] MEDS: MAGIC MOUTHWASH SUSPENSION BTL SSP SCH ×3 (08:54→21:00)
[2020-08-05] MEDS: REMEDY PHYTOPLEX Z-GUARD PASTE 113GM TUBE (FROM STOREROOM PRODUCT) TOP SCH ×6 (08:54→22:52)
[2020-08-05] MEDS ORDERED: FAMOTIDINE 20 MG TAB JT SCH (09:00)
[2020-08-05] MEDS ORDERED: metroNIDAZOLE (FLAGYL) 500MG TABLET JT SCH (09:00)
[2020-08-05] MEDS ORDERED: ESCITALOPRAM OXALATE 10 MG TAB (LEXAPRO) PO SCH (09:00)
[2020-08-05] MEDS ORDERED: ATORVASTATIN 20 MG TAB JT SCH (09:00)
[2020-08-05] MEDS ORDERED: FENOFIBRATE 48 MG TAB (TRICOR) JT SCH (09:00)
[2020-08-05] MEDS ORDERED: MAGNESIUM OXIDE 400MG TAB (MAG-OX) JT SCH (09:00)
[2020-08-05] MEDS ORDERED: NS 500 ML IV ONE (09:15)
[2020-08-05] MEDS: NS 1,000 ML IV SCH ×2 (09:44→18:25)
[2020-08-05] MEDS ORDERED: FLUCONAZOLE 50MG TABLET PO ONE (10:00)
[2020-08-05] MEDS ORDERED: METOCLOPRAMIDE INJ 10MG/2ML VIAL (J2765 PER 1) IV ONE (10:00)
[2020-08-05] MEDS ORDERED: ONDANSETRON 4MG/2ML VIAL IV ONE (10:00)
--- NOTE | 2020-08-05 11:36 | IPNPDOC ---
Text Note Date of Service The patient was seen on 08/05/20. NOTE Subjective: Patient is known to me she was discharged from my service history to the acute rehabilitation unit. Patient was seen and examined this morning at bedside. Patient was seen in the morning was feeling nauseous and vomiting she was given IV Zofran and Reglan she was seen again in the afternoon and she is feeling a lot better her nausea and vomiting had resolved and she was comfortable in bed. Tells me she doesn't have abdominal pain at this time. Still feels weak but overall better. She denies any chest pain or shortness of breath there is no acute overnight events reported to me. Objective: Constitutional: Awake and alert, in no apparent distress ENT: Sclera are clear. Mucosa is moist. Respiratory: Lungs CTA bilaterally. No respiratory distress. No use of accessory muscles. Cardiovascular: RRR S1 and S2 are normal, no murmur Gastrointestinal: J tube in placed, dressings intact, soft, no hepatosplenomegaly, BS+, no rebound tenderness Musculoskeletal: No edema. No joint deformities. RUE 5/5, LUE 5/5, BLE 5/5 Neurologic: No focal neurological deficit. Mental Status: A&O x3, normal affect Skin: Warm, dry Assessment/plan: # Acute pancreatitis with hemorrhage and partial gastric outlet obstruction - Went to surgery on 07/29/2020. Has gastrojejunal tube ostomy tube. - repeat Lipase normalized. Persistent lekocytosis, but no fevers. Procal neg ative - Tube feeds through J tube and output through G tube. - Suggested tube feed is Peptamen AF (1.2kcal) continuous at a rate of 70mL/hr. Peptamen is a peptide base tube feed. We do not have an alternative to Peptamen as a peptide base tube feed. Dietary recommending Vital AF 1.2 running at 70 m l/Hr, with 180 mg flushes q4h. Hold tube feeds if gastric residuals are > 150 cc - Check residuals daily - d/w Dr. Henry, tube will likely remain in situ for 2-3 weeks, at which point if patient is tolerating PO diet, may be removed. Will provide appropriate follow up - patient has been having worsening abdominal pain, without a BM. Dr. Cai was following patient up until yesterday and should be reconsulted to continue to follow patient with us. - Needs PCP at time of discharge from ARU. - She still has leukocytosis and was started on antibiotics today. Dr. Ramiro GREEN was consulted. Patient denies fevers or chills. Could be also component of hemoconcentration as patient is likely dehydrated. i started her on IVFs. Continues to trend daily CBC. # Portal vein thrombosis - noted on CTA abdo 07/24/20 - discussed risks with patient of bleeding vs risks of portal vein HTN, mesenteric ischemia and infarction - patient opted for anticoagulation with close monitoring - On Lovenox as Hgb is stable, to be transitioned to warfarin - CT abdo pelvis wo and w IV contrast showed resolution of the thrombus, should still be anticoagulated and follow up with PCP and hematology. - consideration for NOAC, but in the event of a bleed would prefer warfarin for reversibility ease, so will keep her on lovenox for now, if hgb remains stable and cleared by surgery can switch to NOAC at time of discharge from ARU. # Vaginal spotting since starting AC. Hgb stable. Will Vocal Music Instructor referral at time of discharge from ARU. # GERD: Cannot put PPI in J-tube. famotidine # Dyslipidemia: Continue atorvastatin or fenofibrate # DVT ppx: SCD and TEDs A [facility] Hospitalist VSBest I+O VSBest I+O Laboratory Tests 08/05/20 06:24 Vital Signs Date Time Temp Pulse Resp B/P (MAP) Pulse Ox O2 Delivery O2 Flow Rate FiO2 08/05/20 10:30 18 08/05/20 06:00 98.4 92 127/78 (94) 96 Room Air I&O- Last 24 Hours up to 6 AM 08/05/20 06:00 Intake Total 250 ml Output Total 1300 ml Balance -1050 ml PEBBLES HOLDER MD Aug 05, 2020 11:36
[2020-08-05] MEDS ORDERED: LACTOBACILLUS ACIDOPHILUS CAP (BACID) PO SCH (12:30)
[2020-08-05] MEDS: METOCLOPRAMIDE INJ 10MG/2ML VIAL (J2765 PER 1) IV SCH ×3 (12:34→23:40)
[2020-08-05] MEDS ORDERED: ZONISAMIDE 10 MG/ML JT SCH (13:00)
--- NOTE | 2020-08-05 13:07 | IPNPDOC ---
PM&R Progress Note DATE OF SERVICE: Aug 05, 2020 Return To Factory Clerk Progress Note Subjective: PAtient reporting she still feels nauseous and reports whenever she smells any odor she wants to vomit. REVIEW OF SYSTEMS: The following is a completed review of systems and has been reviewed. Review of systems otherwise unremarkable. PAIN: Patient self reports abdominal pain EYES: No recent vision changes EARS, NOSE, & THROAT: No throat pain, or dysphagia, or rhinorrhea CARDIOVASCULAR: Denies chest pain or palpitations PULMONARY: Denies shortness of breath GASTROINTESTINAL: + constipation, +nausea/vomiting GENITOURINARY: +dysuria MUSCULOSKELETAL: LUE weakness due to recent RTC surgery NEUROLOGICAL:no paresthesias or tremor HEMATOLOGICAL: denies easy bruising SKIN: no rash PSYCHIATRIC: +depressed All other review of systems found to be negative. PHYSICAL EXAMINATION: VITAL SIGNS: Please see below. GENERAL: Pleasant and cooperative. No acute distress. HEENT: PERRL. Extraocular movements intact. Clear conjunctiva CARDIOVASCULAR: Regular rate and rhythm. No murmurs, rubs, or gallops LUNGS: Clear to auscultation bilaterally. No wheezes. No rhonchi ABDOMEN: mildly distended, soft, no rebound tenderness, some RLQ TTP. Positive bowel sounds. Normal active bowel sounds NEUROLOGICAL: Alert and oriented times three. Cranial nerves II through XII grossly intact. Sensation grossly intact EXTREMITIES: 5\5 strength bilateral upper extremities. 5\5 strength right lower extremity. 5/5 strength in left lower extremity. SKIN: abdominal ostomy site, no qi-incisional induration ASSESSMENT:59-year-old F with past medical history of pancreatitis who presents status post new episode of pancreatitis s/p G-J tube placement PLAN: 1. Rehab- PT/OT advance mobility and ADLs, strengthen/stretch/maintain ROM all 4 limbs, LUE precautions in place for RTC surgery performed 05-20-21 2. Cardiac- HLD c/u statin and fenofibrate -monitor BPs, medicine consulted to assist in management 3. Neuro- hx of migraines, on Zonisamide 4. Resp- monitor for infection, encourage incentive spirometry 5. GI- patient with G-J tube in place for acute pancreatitis, NPO, c/u tube feeds, surgery following, can take up to 4-6 weeks for hematoma to resolve and be safe for po intake, today patient with wbc 19, discuss case with Dr. Rubio who will see patient and recommends antibiotic coverage at this, will start ceftriaxone and flagyl, IVF started as well by medicine -c/u zofran for nausea,reglan added for gastroparesis -pepcid BID for ppx 6. Vasc- patient on Lovenox-Coumadin bridge for portal vein thrombosis, monitor daily INR and H/H- may switch to DOAC upon d/c from ARU, treat for 6 months total 7. Heme- thrombocytosis worsening, may be due to infection vs lovenox, medicine aware and patient getting IVF for possible hemoconcentration due to NPO 7. - UA/Ucx pending, starting Ceftriaxone to treat probable intra-abdominal infection 8. Ortho- f/u with ortho for left RTC surgery performed 05-20-[address] Nixon 9. Psych- c/u lexapro for depression 10. 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 Dispo-TBD Allergies Coded Allergies: TAPE (Verified Allergy, Mild, PLASTIC TAPE = RASH, 06/08/18) Vital Signs Vital Signs Date Time Temp Pulse Resp B/P (MAP) Pulse Ox O2 Delivery O2 Flow Rate FiO2 08/05/20 10:30 18 08/05/20 06:00 98.4 92 127/78 (94) 96 Room Air Laboratory Data CBC/BMP Laboratory Tests 08/05/20 06:24 Labs 24H Laboratory Tests 2 08/05/20 06:24: Immature Granulocyte % (Auto) , Neutrophils (%) (Auto) , Nucleated Red Blood Cells % (auto) 0.1H, Neutrophils 72H, Lymphocytes (Manual) 14L, Monocytes (Manual) 6H, Eosinophils (Manual) 1, Basophils (Manual) 1, Metamyelocytes 4H, My elocytes 1H, Atypical Lymphocytes 1, Red Blood Cell Morphology NORMAL, Platelet Estimate NORMAL, Prothrombin Time 16.6H, Prothromb Time International Ratio 1.31, Anion Gap 11, Glomerular Filtration Rate 59.9, Calcium Level 10.1 08/05/20 09:38: C-Reactive Protein, Quantitative 2.02H Microbiology Microbiology 08/05/20 Blood Culture, Received Pending 08/05/20 Blood Culture, Received Pending Current Medications Current Medications Current Medications Medications (Trade) Dose Ordered Sig/Kacie Route PRN Reason Start Time Stop Time Status Last Admin Dose Admin Atorvastatin Calcium (Lipitor) 40 mg DAILY JT 08/05/20 09:00 08/05/20 08:53 Ceftriaxone Sodium 2 gm/ Dextrose 50 ml @ 100 mls/hr Q24H IV 08/05/20 09:00 Docusate Sodium (Colace Liquid) 100 mg TID JT 08/04/20 21:00 08/05/20 08:53 Enoxaparin Sodium (Lovenox) 100 mg Q12H SC 08/04/20 21:00 08/05/20 08:53 Escitalopram Oxalate (Lexapro) 20 mg DAILY PO 08/05/20 09:00 08/05/20 08:53 Famotidine (Pepcid) 40 mg DAILY JT 08/05/20 09:00 08/05/20 08:53 Fenofibrate (Tricor) 48 mg DAILY JT 08/05/20 09:00 08/05/20 08:53 Home Med (Med Rec Complete!) ASDIRECTED XX 08/04/20 18:30 08/04/20 18:28 DC Lactobacillus Acidophilus (Bacid) 1 ea WMHS PO 08/05/20 12:30 Lidocaine/ Diphenhydr/Alum/ Mg/Simeth (Magic Mouthwash) 5ML TID SSP 08/04/20 21:00 08/04/20 21:11 Magnesium Oxide (Mag-Ox) 400 mg DAILY JT 08/05/20 09:00 08/05/20 08:53 Metoclopramide HCl (REGLAN INJection) 5 mg Q6H IV 08/05/20 12:00 08/05/20 12:34 Metronidazole (Flagyl) 500 mg TID JT 08/05/20 09:00 Miconazole Nitrate (Monistat-7) 1 APPLICATORFUL QHS PV 08/05/20 21:00 08/11/20 21:01 Ondansetron HCl (ZOFRAN INJection) 4 mg Q4HP PRN IV NAUSEA OR VOMITING 08/05/20 09:15 Ondansetron HCl (Zofran Odt) 4 mg Q4HP PRN PO NAUSEA OR VOMITING 08/04/20 21:00 08/05/20 05:30 Oxycodone HCl (Roxicodone, Oxyir) 5 mg Q4HP PRN JT PAIN 08/04/20 22:00 08/05/20 09:44 Polyethylene Glycol (Miralax) 1 pkt BID JT 08/04/20 21:00 08/05/20 08:53 Ramelteon (Rozerem) 8 mg QHS JT 08/04/20 21:00 08/04/20 21:18 Senna (Senokot) 1 tab QHS JT 08/04/20 21:00 08/04/20 21:18 Sodium Chloride 1,000 ml @ 130 mls/hr Q7H42M IV 08/05/20 09:15 08/05/20 09:44 Vitamin D (Drisdol) 50,000 units Mo@0900 JT 08/10/20 09:00 Warfarin Sodium (Coumadin) 5 mg DAILY@17 PO 08/06/20 17:00 Zonisamide (Zonegran 10mg/ ml Oral Susp) 100 mg BID JT 08/05/20 13:00 Zonisamide (Zonegran) 100 mg BID JT 08/04/20 21:00 08/05/20 12:12 DC 08/04/20 21:24 SANDY BRANNON MD Aug 05, 2020 13:07
[2020-08-05] MEDS: ONDANSETRON 4MG/2ML VIAL IV PRN (13:17)
[2020-08-05 14:00] VITALS: BP 140/89
[2020-08-05] MEDS ORDERED: ALTEPLASE 2MG/2ML VIAL XX ONE (15:30)
[2020-08-05] MEDS: cefTRIAXone SOD 2 GM in D5W MINI-BAG PLUS 50 ML IV SCH (15:32)
[2020-08-05] MEDS ORDERED: WARFARIN SOD 5MG TAB PO ONE (17:00)
[2020-08-05] MEDS ORDERED: MORPHINE 2 MG/ML 1ML VIAL (J2270) IV ONE (18:20)
[2020-08-05] MEDS: D5W/0.9% SODIUM CHLORIDE 1,000 ML IV SCH (18:33)
[2020-08-05 20:00] VITALS: BP 159/83
[2020-08-05] MEDS: MICONAZOLE-7 VAGINAL 2% CREAM 47.7 GM PV SCH (22:21)
[2020-08-05] MEDS: metroNIDAZOLE 500 MG in IV 1 EA IV SCH (22:24)
[2020-08-05] MEDS: MORPHINE 2 MG/ML 1ML VIAL (J2270) IV PRN (22:51)
[2020-08-06] MEDS: D5W/0.9% SODIUM CHLORIDE 1,000 ML IV SCH ×3 (02:51→17:59)
[2020-08-06] MEDS: metroNIDAZOLE 500 MG in IV 1 EA IV SCH ×3 (04:30→18:01)
[2020-08-06] MEDS: ONDANSETRON 4MG/2ML VIAL IV PRN ×2 (04:31→13:12)
[2020-08-06] MEDS: METOCLOPRAMIDE INJ 10MG/2ML VIAL (J2765 PER 1) IV SCH ×3 (05:29→17:58)
[2020-08-06 06:10] VITALS: BP 141/85
[2020-08-06 06:35] LABS: HEMATOCRIT 35.9 % (36.0-47.0); HEMOGLOBIN 11.6 g/dl (12.0-15.5); MEAN CORPUSCULAR HEMOGLOBIN 27.2 pg (27.0-33.0); MEAN CORPUSCULAR HGB CONC 32.3 g/dl (32.0-36.5); MEAN CORPUSCULAR VOLUME 84.1 fl (80.0-96.0); PLATELET COUNT, AUTOMATED 632 10^3/uL (150-450); RED BLOOD COUNT 4.27 10^6/uL (4.00-5.40)
[2020-08-06 06:49] LABS: WHITE BLOOD COUNT 15.1 10^3/uL (4.0-10.0)
[2020-08-06 06:56] LABS: INR 1.46; PROTHROMBIN TIME 18.1 SECONDS (12.5-14.3)
[2020-08-06 07:15] LABS: BASOPHILS 2 % (0-1); EOSINOPHILS 2 % (0-3); LYMPHOCYTES 9 % (16-44); METAMYELOCYTES 2 % (0-0); MONOCYTES 11 % (0-5); MYELOCYTES 1 % (0-0); NEUTROPHILS 70 % (28-66); PLATELET ESTIMATE INCREASED (NORMAL); POLYCHROMASIA 1+
[2020-08-06 07:16] LABS: GIANT PLATELETS 1+
[2020-08-06] MEDS: cefTRIAXone SOD 2 GM in D5W MINI-BAG PLUS 50 ML IV SCH (08:43)
[2020-08-06] MEDS: ENOXAPARIN 100MG/1ML SYRINGE (J1650 PER 10MG) SC SCH ×2 (08:44→21:30)
[2020-08-06] MEDS: REMEDY PHYTOPLEX Z-GUARD PASTE 113GM TUBE (FROM STOREROOM PRODUCT) TOP SCH ×6 (08:44→21:32)
[2020-08-06] MEDS: MAGIC MOUTHWASH SUSPENSION BTL SSP SCH ×3 (08:45→21:00)
[2020-08-06] MEDS: MORPHINE 2 MG/ML 1ML VIAL (J2270) IV PRN (08:52)
[2020-08-06] MEDS ORDERED: FAMOTIDINE INJ 20MG/2ML VIAL (S0028 PER 1) IV SCH (09:00)
[2020-08-06] MEDS ORDERED: FAMOTIDINE 20 MG TAB JT SCH (09:00)
[2020-08-06] MEDS: ESCITALOPRAM OXALATE 10 MG TAB (LEXAPRO) PO SCH (11:11)
[2020-08-06] MEDS: ATORVASTATIN 20 MG TAB JT SCH (11:12)
[2020-08-06] MEDS: oxyCODONE 5MG TAB JT PRN ×2 (11:12→17:58)
[2020-08-06] MEDS: MAGNESIUM OXIDE 400MG TAB (MAG-OX) JT SCH (11:12)
[2020-08-06 14:00] VITALS: BP 145/75
--- NOTE | 2020-08-06 16:54 | REP ---
INDICATION: hydronephrosis on CT. COMPARISON: CT 08/02/2020. TECHNIQUE: Real-time sonographic evaluation of the kidneys is performed. FINDINGS: Renal cortical echogenicity pattern is normal bilaterally and contours are smooth. There is mild to moderate right hydronephrosis. There is no left hydronephrosis. No renal mass or large calcifications are seen. The right kidney measures 12.2 x 4.5 x 4.9 cm. Left renal dimensions are 10.8 x 4.7 x 5.4 cm. Urinary bladder is not distended. Ureteral jets are seen in the urinary bladder with Doppler color evaluation. Incidental note is made of a complex hypoechoic structure with increased through transmission measuring 4.3 x 3.0 x 3.6 cm, in the left adnexal region, likely ovarian in origin. IMPRESSION: [id number] right hydronephrosis. Ureteral jets are seen in the urinary bladder with Doppler color evaluation. Complex cystic structure left adnexa is likely ovarian in origin with a maximum diameter 4.[address] exams dating back to 02/09/2017 this appears unchanged. <Electronically signed by Gallo Guzman > 08/06/20 [id number]
[2020-08-06] MEDS ORDERED: WARFARIN SOD 5MG TAB PO SCH (17:00)
[2020-08-06] MEDS ORDERED: WARFARIN SOD 5MG TAB PO ONE (17:00)
[2020-08-06] MEDS: DOCUSATE SOD LIQ 100MG/10ML UDC JT SCH ×2 (17:58→21:30)
[2020-08-06] MEDS: FENOFIBRATE 48 MG TAB (TRICOR) JT SCH (17:58)
[2020-08-06 20:00] VITALS: BP 143/76
[2020-08-06] MEDS: MIRALAX *UNIT DOSE* 17GM PACKET JT SCH (21:30)
[2020-08-06] MEDS: RAMELTEON 8 MG TAB (ROZEREM) JT SCH (21:30)
[2020-08-06] MEDS: SENNA 8.6 MG TAB (SENOKOT) JT SCH (21:30)
[2020-08-06] MEDS: MICONAZOLE-7 VAGINAL 2% CREAM 47.7 GM PV SCH (21:30)
[2020-08-07] MEDS: METOCLOPRAMIDE INJ 10MG/2ML VIAL (J2765 PER 1) IV SCH ×4 (00:06→17:10)
[2020-08-07] MEDS: MORPHINE 2 MG/ML 1ML VIAL (J2270) IV PRN ×3 (00:06→22:52)
[2020-08-07] MEDS: D5W/0.9% SODIUM CHLORIDE 1,000 ML IV SCH ×3 (00:53→17:10)
[2020-08-07] MEDS: metroNIDAZOLE 500 MG in IV 1 EA IV SCH (02:36)
[2020-08-07 05:24] VITALS: BP 141/79
[2020-08-07 07:09] LABS: HEMATOCRIT 34.9 % (36.0-47.0); HEMOGLOBIN 10.5 g/dl (12.0-15.5); MEAN CORPUSCULAR HEMOGLOBIN 25.9 pg (27.0-33.0); MEAN CORPUSCULAR HGB CONC 30.1 g/dl (32.0-36.5); PLATELET COUNT, AUTOMATED 603 10^3/uL (150-450); RED BLOOD COUNT 4.06 10^6/uL (4.00-5.40); WHITE BLOOD COUNT 13.6 10^3/uL (4.0-10.0)
[2020-08-07 07:21] LABS: INR 1.83; PROTHROMBIN TIME 21.6 SECONDS (12.5-14.3)
[2020-08-07 07:26] LABS: ATYPICAL LYMPH 4 % (0-5); BASOPHILS 1 % (0-1); EOSINOPHILS 1 % (0-3); LYMPHOCYTES 17 % (16-44); METAMYELOCYTES 1 % (0-0); MONOCYTES 2 % (0-5); NEUTROPHILS 72 % (28-66)
[2020-08-07 07:27] LABS: PLATELET ESTIMATE INCREASED (NORMAL)
--- NOTE | 2020-08-07 09:35 | CR ---
NAME: MATTHEW VALADEZ [facility] WT ID#: [id number] JOB: [id number] CE: 08/06/2020 ACCT: [id number] DOCTOR: LAUREN MCFADDEN MD PMR CONSULTATION DATE: 08/06/2020 DATE OF CONSULTATION: 08/06/2020 Asked to consult by Dr. Delgadillo for evaluation of pancreatitis associated with leukocytosis and need for antibiotics. HISTORY OF PRESENT ILLNESS: Ms. Valadez is a 59-year-old female with a history of multiple abdominal surgeries who presented to [facility] on 07/17/2020 with acute pancreatitis. The patient also had a gastric obstruction and she was transferred to [facility] on 07/17/2020, where she had spent 2 weeks there. The patient had surgery with a gastrojejunostomy tube placement on 07/29/2020. She had the jejunostomy (J) tube for feeds and the gastrostomy for drainage. The patient had persistent bowel obstruction and was transferred to [facility] for rehabilitation. She was also noted to have a portal vein thrombosis and had been started on Lovenox with switching to Coumadin. Patient was complaining of some vaginal spotting, persistent abdominal pain, epigastric pain, and nausea whenever she smelled any food. She complained of significant weakness, difficulties with activities of daily living (ADLs) and therefore was transferred to acute rehabilitation on 08/04/2020. Her white count since early July has fluctuated between 15,000 and 20,000 without any improvement. She has not had any fever or chills. She complained of mild burning on urination and has been constipated. PAST MEDICAL HISTORY: Significant for multiple abdominal surgeries, gastroesophageal reflux disease, hiatus hernia, gastroparesis, chronic low back pain. PAST SURGICAL HISTORY: Cholecystectomy, abdominal surgery, left shoulder rotator cuff repair, colonoscopy, endoscopy, right carpal tunnel. REVIEW OF SYSTEMS: She had no sore throat, no dysphagia, no chest pain or palpitations, denies any shortness of breath. She does have some epigastric pain. She has a gastrojejunostomy (GJ) tube in place with gastric obstruction. She has constipation, some dysuria, left upper extremity weakness from shoulder surgery, no paresthesias. Patient has some vaginal irritation and some bleeding. FAMILY HISTORY: Mostly emphysema. SOCIAL HISTORY: She quit smoking. No alcohol or drug use. PHYSICAL EXAMINATION: She is a sick-looking female sitting in wheelchair in no acute distress. Head and ear, nose, and throat (ENT): Oropharynx is clear. Neck is supple, no jugular venous distension (JVD), no bruits. Heart: Normal S1, S2, no murmurs, rubs, or gallops. Lungs: Clear, no wheezes, rales, or rhonchi. Abdomen: Soft with a gastrojejunostomy tube in place, whenever touched and moved the patient has severe pain at the site. There is some irritation underneath the tubing with erythema and some yellowish discharge around the gastrostomy (G) tube. Bowel sounds are normal. Extremities: No clubbing, cyanosis, or edema. Skin: No rashes. Neurologic exam: Alert, oriented times three, cranial nerves intact. LABORATORY DATA: White count 15.1, yesterday was 19.3, her white count between 08/01/2020 and 08/06/2020 has fluctuated between 15-19. Today, white count is 15.1, hemoglobin 11.6, hematocrit 35.9, platelets 632, 70% neutrophils, 3% bands, 9% lymphocytes, 11% monocytes. Sodium 129, potassium 4.3, chloride 91, bicarbonate 27, BUN 41, creatinine 1.01, glucose 109, calcium 10.1, CRP 2.02, lipase 392. On 08/02/2020, procalcitonin was 0.1. Blood cultures on 07/17/2020 and 08/05/2020, no growth after 24 hours. Urine culture is pending but urinalysis has only 4 white cells and 1 red cell. MEDICATIONS: - warfarin 5 mg by mouth daily - famotidine 20 mg twice a day through G-tube - atorvastatin 40 mg daily - Tricor 48 mg daily - magnesium oxide 400 mg daily - Lexapro 20 mg by mouth daily - miconazole application nightly for 7 days - morphine as needed - metronidazole 500 mg IV every 8 hours - Reglan 5 mg IV every 6 hours - ceftriaxone 2 grams IV every 24 hours, started treatment on 08/05/2020 - Senokot one tablet G-tube nightly - Lovenox 100 mg subcutaneous every 12 hours - MiraLax one packet G-tube twice a day - Rozerem as needed IMAGING: CT abdomen and pelvis done 08/02/2020 shows improving pancreatitis. There is a 12.4 x 7.3. x 4.5 cm hyperdense collection adjacent to the head of the pancreas that has decreased in size from previous CT done without any fluid collection, pseudocyst, or abscess representing hemorrhagic pancreatitis or retroperitoneal bleed. Collection is fairly well organized without enhancing rim and suggests possibly a pseudocyst or hemorrhage. No evidence of bowel obstruction. There is mild hydronephrosis. IMPRESSION: This is a 59-year-old female who was admitted with acute pancreatitis on 07/17/2020, transferred back to rehabilitation, who has had persistent leukocytosis over the past 20 days. The patient has no fever, no hypotension, her abdominal pain has not worsened, in spite of her leukocytosis, I doubt she has an infected pancreas. CT is not consistent with necrotizing pancreatitis or abscess. I am not sure that the patient needs any IV antibiotics. She was started on IV Rocephin and Flagyl for presumptive necrotizing pancreatitis. She does have though evidence of mild hydronephrosis on the right side from pancreatitis and hemorrhage and that needs to be further evaluated as this could also be source of infection. PLAN: Obtain renal ultrasound to rule out hydronephrosis. If moderate, please consult urology for evaluation. Will obtain followup C-reactive protein (CRP), procalcitonin, and if they remain on the low side I do not see any indication for antibiotics. I will discuss the case with Dr. Cai and if abdominal pain persists may need repeat CT abdomen/pelvis. As far as dysuria, is more likely related to yeast infection. Patient was started on Monistat. If persists, may give her one dose of IV Diflucan. Urinalysis is not consistent with a urinary tract infection. Will review CT in morning with Dr. Nayak and discuss the case with Dr. Cai.
[2020-08-07] MEDS: ONDANSETRON 4MG/2ML VIAL IV PRN ×2 (09:41→21:33)
[2020-08-07] MEDS: MIRALAX *UNIT DOSE* 17GM PACKET JT SCH ×2 (10:16→21:33)
[2020-08-07] MEDS: ENOXAPARIN 100MG/1ML SYRINGE (J1650 PER 10MG) SC SCH ×2 (10:17→21:34)
[2020-08-07] MEDS: DOCUSATE SOD LIQ 100MG/10ML UDC JT SCH ×3 (10:17→21:33)
[2020-08-07] MEDS: ATORVASTATIN 20 MG TAB JT SCH (10:18)
[2020-08-07] MEDS: FAMOTIDINE 20 MG TAB JT SCH ×2 (10:18→21:33)
[2020-08-07] MEDS: MAGNESIUM OXIDE 400MG TAB (MAG-OX) JT SCH (10:18)
[2020-08-07] MEDS: FENOFIBRATE 48 MG TAB (TRICOR) JT SCH (10:18)
[2020-08-07] MEDS: ESCITALOPRAM OXALATE 10 MG TAB (LEXAPRO) PO SCH (10:18)
[2020-08-07] MEDS: REMEDY PHYTOPLEX Z-GUARD PASTE 113GM TUBE (FROM STOREROOM PRODUCT) TOP SCH ×6 (10:19→21:00)
[2020-08-07] MEDS: MAGIC MOUTHWASH SUSPENSION BTL SSP SCH ×3 (10:19→21:00)
[2020-08-07] MEDS: oxyCODONE 5MG TAB JT PRN ×2 (10:20→15:23)
[2020-08-07] MEDS: cefTRIAXone SOD 2 GM in D5W MINI-BAG PLUS 50 ML IV SCH (10:27)
--- NOTE | 2020-08-07 11:36 | IPN ---
PROGRESS NOTE DATE: 08/07/2020 SUBJECTIVE: Mrs. Calvin is doing better today. She still has nausea but otherwise she is in good spirits. She has had no vomiting or diarrhea. She is still NPO. She gets tube feeds through a gastrojejunostomy tube. No fever or chills. Her major complaint is back pain diffusely. LABORATORY DATA: White count is down to 13.6, hemoglobin is 10.5, hematocrit is 34.9, platelets 603,000, 72% neutrophils, 2% bands, 17% lymphocytes, CRP is 0.81, down from 2.02. Urinalysis had 4 white cells. Blood cultures on 08/05 were no growth after 48 hours. Urine culture was positive for E. Coli, 20,000 colony forming unit but her urinalysis had only 4 white cells. She denies any dysuria but she does have back pain. OBJECTIVE: VITAL SIGNS: Temperature is 97, pulse is 81, respirations 18, blood pressure is 141/79, O2 saturation is 97% on room air. HEART: S1 and S2. No murmurs. LUNGS: Clear. No wheezes, rales or rhonchi. ABDOMEN: Mild tenderness around the gastrostomy tube with some erythema underlying the G-tube and tenderness. Minimal purulent discharge around the tube. BACK: Diffuse tenderness, not in the CVA area. EXTREMITIES: Trace edema bilaterally. No calf tenderness. IMPRESSION: 1. Hemorrhagic pancreatitis with no evidence of infection. Patient is improving but has a very large hematoma that is causing a gastric outlet obstruction. 2. Portal vein thrombosis on coumadin and Heparin. 3. Leukocytosis that was urinary in origin even though she has mild to moderate hydronephrosis, her urinalysis was benign and urine culture only had 20,000 white cells. She did show clinical improvement with IV Rocephin with a decrease in her white count and CRP. I discussed the case with Dr. Cai who does not feel she has a necrotizing pancreatitis with abscess but more of a hematoma but possibly the G-tube was the site of infection and would continue with IV Rocephin for a total of 5 to 7 days. PLAN: Continue IV Rocephin for five to seven days until white count improves and discontinue IV Flagyl.
[2020-08-07] MEDS ORDERED: CAPSAICIN 0.025% CR 60 GM TOP SCH (12:00)
[2020-08-07 14:00] VITALS: BP 161/76
[2020-08-07] MEDS: WARFARIN SOD 5MG TAB PO SCH (17:10)
[2020-08-07 20:00] VITALS: BP 136/84
[2020-08-07] MEDS: RAMELTEON 8 MG TAB (ROZEREM) JT SCH (21:33)
[2020-08-07] MEDS: SENNA 8.6 MG TAB (SENOKOT) JT SCH (21:33)
[2020-08-07] MEDS: MICONAZOLE-7 VAGINAL 2% CREAM 47.7 GM PV SCH (21:36)
[2020-08-08] VITALS (9 sets, daily range): BP systolic 125–167; BP diastolic 66–82
[2020-08-08] MEDS: METOCLOPRAMIDE INJ 10MG/2ML VIAL (J2765 PER 1) IV SCH ×4 (00:34→16:57)
[2020-08-08] MEDS: D5W/0.9% SODIUM CHLORIDE 1,000 ML IV SCH ×3 (00:57→13:58)
[2020-08-08] MEDS: MORPHINE 2 MG/ML 1ML VIAL (J2270) IV PRN ×2 (06:47→14:06)
[2020-08-08 07:04] LABS: INR 2.04; PROTHROMBIN TIME 23.5 SECONDS (12.5-14.3)
[2020-08-08] MEDS ORDERED: MIDAZOLAM INJ 2MG/2ML VIAL (J2250 PER 1MG) As Ordered ONE (07:07)
[2020-08-08] MEDS ORDERED: dexameTHASONE 4 MG/ML 1ML VIAL (J1100 PER 1MG) As Ordered ONE (07:08)
[2020-08-08] MEDS ORDERED: ONDANSETRON 4MG/2ML VIAL As Ordered ONE (07:08)
[2020-08-08] MEDS ORDERED: propofoL 200 MG/20 ML VIAL As Ordered ONE (07:08)
[2020-08-08] MEDS ORDERED: LIDOCAINE 2% 100MG/5ML SDV (FOR ANES.) As Ordered ONE (07:08)
[2020-08-08] MEDS ORDERED: fentaNYL 100 MCG/2 ML INJECTION (J3010) As Ordered ONE (07:08)
[2020-08-08] MEDS: cefTRIAXone SOD 2 GM in D5W MINI-BAG PLUS 50 ML IV SCH (08:06)
[2020-08-08] MEDS: REMEDY PHYTOPLEX Z-GUARD PASTE 113GM TUBE (FROM STOREROOM PRODUCT) TOP SCH ×6 (09:00→20:42)
[2020-08-08] MEDS: ENOXAPARIN 100MG/1ML SYRINGE (J1650 PER 10MG) SC SCH (09:00)
[2020-08-08] MEDS: MAGIC MOUTHWASH SUSPENSION BTL SSP SCH ×3 (09:00→20:42)
[2020-08-08] MEDS ORDERED: CONRAY-60 60% 50ML VIAL (Q9961) As Ordered ONE (09:34)
[2020-08-08] MEDS ORDERED: LIDOCAINE 2% 5ML JELLY UROJET As Ordered ONE (10:27)
[2020-08-08] MEDS: DOCUSATE SOD LIQ 100MG/10ML UDC JT SCH ×3 (12:10→20:41)
[2020-08-08] MEDS: FAMOTIDINE 20 MG TAB JT SCH ×2 (12:10→20:39)
[2020-08-08] MEDS: ESCITALOPRAM OXALATE 10 MG TAB (LEXAPRO) PO SCH (12:10)
[2020-08-08] MEDS: MAGNESIUM OXIDE 400MG TAB (MAG-OX) JT SCH (12:10)
[2020-08-08] MEDS: ATORVASTATIN 20 MG TAB JT SCH (12:10)
[2020-08-08] MEDS: FENOFIBRATE 48 MG TAB (TRICOR) JT SCH (12:10)
[2020-08-08] MEDS: MIRALAX *UNIT DOSE* 17GM PACKET JT SCH ×2 (12:10→20:41)
[2020-08-08] MEDS ORDERED: LR 1,000 ML IV SCH ×2 (13:00→14:40)
[2020-08-08] MEDS ORDERED: oxyCODONE 5MG TAB PO PRN (13:00)
[2020-08-08] MEDS: WARFARIN SOD 5MG TAB PO SCH (16:56)
--- NOTE | 2020-08-08 17:29 | REP ---
INDICATION: RIGHT RETROGRADE. COMPARISON: Ultrasound 08/06/2020. TECHNIQUE: Single C-arm view abdomen and pelvis. FINDINGS: Contrast opacifies the right ureter and right pelvocaliceal system. There is moderate right hydronephrosis.There is poor opacification of the proximal right ureter. There is mild dilatation of the mid to distal right ureter. The distal end of the right ureter is not visualized. IMPRESSION: 38 seconds fluoroscopy time utilized. <Electronically signed by Gallo Guzman > 08/08/20 [id number]
--- NOTE | 2020-08-08 20:08 | SMCUROLCON ---
Urology Consultation General Date of Consultation 08/08/20 Reason For Consultation This patient is seen for right hydronephrosis. History of Present Illness The patient is a 59-year-old female with a medical history significant for pancreatitis, small bowel obstruction and hemorrhaging. She had been transferred to [facility] where she was medically treated for these conditions. She then had a duodenal lesion biopsy and a jejunostomy tube inserted on 07/29/2020. The CT scan on August 02 showed peritoneal hyperdense fluid collection is pancreatic head and hemorrhagic pancreatitis or retroperitoneal bleed she also found to have a portal vein thrombosis and was placed on Coumadin. Since her return from [facility], she has been complaining of nausea, vague abdominal and back pains, left-sided abdominal pain and some vaginal spotting. Upon review of her CT scan she was also seen to have some right-sided hydronephrosis. A renal ultrasound was performed here confirming hydronephrosis and therefore urology consult was called. She denies any prior renal or bladder issues and states that her pain is not on the right side but mostly the left. Past Medical History Medical History GERD Hiatal hernia Gastroparesis Chronic low back pain and pancreatitis with gastric outlet obstruction Surgical Hstory Cholecystectomy Left shoulder rotator cuff repair Colonoscopy, right carpal tunnel Endoscopic biopsy Jejunostomy tube Social History * Smoker: former Smoker Alcohol: Denies Drugs: denies Medications Current Medications Current Medications Medications (Trade) Dose Ordered Sig/Kacie Route PRN Reason Start Time Stop Time Status Last Admin Dose Admin Atorvastatin Calcium (Lipitor) 40 mg DAILY JT 08/05/20 09:00 08/06/20 10:46 DC 08/05/20 08:53 Atorvastatin Calcium (Lipitor) 40 mg DAILY JT 08/06/20 09:00 08/07/20 10:18 Capsaicin (Zostrix 0.025%) APPLY to back BID prn BIDP TOP 08/07/20 12:00 Ceftriaxone Sodium 2 gm/ Dextrose 50 ml @ 100 mls/hr Q24H IV 08/05/20 09:00 08/08/20 08:06 Dextrose/Sodium Chloride 1,000 ml @ 130 mls/hr Q7H42M IV 08/05/20 18:30 08/08/20 14:43 DC 08/08/20 08:06 Docusate Sodium (Colace Liquid) 100 mg TID JT 08/04/20 21:00 08/07/20 21:33 Enoxaparin Sodium (Lovenox) 100 mg Q12H SC 08/04/20 21:00 08/08/20 14:43 DC 08/07/20 21:34 Escitalopram Oxalate (Lexapro) 20 mg DAILY PO 08/05/20 09:00 08/06/20 10:47 DC 08/05/20 08:53 Escitalopram Oxalate (Lexapro) 20 mg DAILY PO 08/06/20 09:00 08/07/20 10:18 Famotidine (Pepcid I.v. Vial) 40 mg DAILY IV 08/06/20 09:00 08/06/20 10:43 DC 08/06/20 08:43 Famotidine (Pepcid) 20 mg BID JT 08/06/20 09:00 08/06/20 10:44 DC Famotidine (Pepcid) 20 mg BID JT 08/07/20 09:00 08/07/20 21:33 Famotidine (Pepcid) 40 mg DAILY JT 08/05/20 09:00 08/05/20 18:29 DC 08/05/20 08:53 Fenofibrate (Tricor) 48 mg DAILY JT 08/05/20 09:00 08/06/20 10:46 DC 08/05/20 08:53 Fenofibrate (Tricor) 48 mg DAILY JT 08/06/20 09:00 08/07/20 10:18 Home Med (Med Rec Complete!) ASDIRECTED XX 08/04/20 18:30 08/04/20 18:28 DC Lactated Ringer's 1,000 ml @ 30 mls/hr Q24H IV 08/08/20 14:40 Lactated Ringer's 1,000 ml @ 80 mls/hr [id number] IV 08/08/20 13:00 08/08/20 14:00 DC Lactobacillus Acidophilus (Bacid) 1 ea WMHS PO 08/05/20 12:30 08/05/20 14:38 DC 08/05/20 13:17 Lidocaine/ Diphenhydr/Alum/ Mg/Simeth (Magic Mouthwash) 5ML TID SSP 08/04/20 21:00 08/08/20 16:57 Magnesium Oxide (Mag-Ox) 400 mg DAILY JT 08/05/20 09:00 08/06/20 10:46 DC 08/05/20 08:53 Magnesium Oxide (Mag-Ox) 400 mg DAILY JT 08/06/20 09:00 08/07/20 10:18 Metoclopramide HCl (REGLAN INJection) 5 mg Q6H IV 08/05/20 12:00 08/08/20 16:57 Metronidazole (Flagyl) 500 mg TID JT 08/05/20 09:00 08/05/20 18:31 DC Metronidazole 500 mg/IV Miscellaneous Supplies 100 ml @ 100 mls/hr Q8H IV 08/05/20 19:00 08/07/20 11:11 DC 08/07/20 02:36 Miconazole Nitrate (Monistat-7) 1 APPLICATORFUL QHS PV 08/05/20 21:00 08/11/20 21:01 08/07/20 21:36 Morphine Sulfate (Morphine Sulfate Inj) 2 mg Q4HP PRN IV PAIN >5 08/05/20 20:55 08/08/20 14:06 Ondansetron HCl (ZOFRAN INJection) 4 mg Q4HP PRN IV NAUSEA OR VOMITING 08/05/20 09:15 08/07/20 21:33 Ondansetron HCl (Zofran Odt) 4 mg Q4HP PRN PO NAUSEA OR VOMITING 08/04/20 21:00 08/05/20 05:30 Oxycodone HCl (Roxicodone, Oxyir) 5 mg ASDIRECTED PRN PO PAIN LEVEL 1-4 08/08/20 13:00 08/08/20 14:00 DC Oxycodone HCl (Roxicodone, Oxyir) 5 mg Q4HP PRN JT PAIN 1-4 08/04/20 22:00 08/07/20 15:23 Polyethylene Glycol (Miralax) 1 pkt BID JT 08/04/20 21:00 08/07/20 21:33 Ramelteon (Rozerem) 8 mg QHS JT 08/04/20 21:00 08/07/20 21:33 Senna (Senokot) 1 tab QHS JT 08/04/20 21:00 08/07/20 21:33 Sodium Chloride 1,000 ml @ 130 mls/hr Q7H42M IV 08/05/20 09:15 08/05/20 18:27 DC 08/05/20 18:25 Vitamin D (Drisdol) 50,000 units Mo@0900 JT 08/10/20 09:00 08/06/20 10:34 DC Warfarin Sodium (Coumadin) 5 mg DAILY@17 PO 08/06/20 17:00 08/06/20 10:35 DC Warfarin Sodium (Coumadin) 5 mg DAILY@17 PO 08/07/20 17:00 08/08/20 16:56 Zonisamide (Zonegran 10mg/ ml Oral Susp) 100 mg BID JT 08/05/20 13:00 08/05/20 14:45 DC 08/05/20 13:17 Zonisamide (Zonegran) 100 mg BID JT 08/04/20 21:00 08/05/20 12:12 DC 08/04/20 21:24 Allergies Allergies: Coded Allergies: TAPE (Verified Allergy, Mild, PLASTIC TAPE = RASH, 06/08/18) Review of Systems General: Reports: Normal Appetite; Denies: Fatigue, Malaise Constitutional: Denies: Fever, Chills, Sweats, Weakness, Malaise Eyes: Denies: Pain, Vision change ENT: Denies: Head Aches, Sore Throat, Epistaxis Skin: Denies: Rash, Lesions, Breakdown, Nail Changes Pulmonary: Denies: Dyspnea, Cough Cardiovascular: Denies Chest Pain, Denies Palpitations Gastrointestinal: Reports: Other Symptoms Genitourinary: Denies: Dysuria, Frequency, Incontinence, Hematuria Hematologic: Denies: Bruising, Bleeding Excessively Endocrine: Denies: Polydipsia, Polyphagia, Polyuria Musculoskeletal: Denies: Neck Pain, Back Pain Physical Examination General Exam: Cooperative, Mild Distress EYE EXAM: PERRLA, Conjunctiva & lids normal, EOMI; No: Sclera icteric ENT EXAM: Atraumatic, Mucous membr. moist/pink, Pharynx Normal Neck Exam: Supple; No: JVD, thyromegaly Chest Exam: Clear to auscultation, Normal air movement Heart Exam: Rate Normal, Regular Rhythm, Normal S1, Normal S2; No: Murmurs, Rubs Abdomen Exam: Normal Bowel Sounds, Soft; No: Tenderness, Hepatospenomegaly Female Exam: Nl Ext Genitalia; No: Lesions, Discharge, Odor, Tenderness Extremity Exam: Normal Pulses; No: Clubbing, Cyanosis, Edema Skin Exam: Nl turgor and temperature; No: Rash, Breakdown Neuro Exam: Normal Gait, Normal Speech, Cranial Nerves 3-12 NL, Reflexes 2+ Psych Exam: Mental status NL, Mood NL, Oriented x 3 Vital Signs/I&O Vital Signs Date Time Temp Pulse Resp B/P (MAP) Pulse Ox O2 Delivery O2 Flow Rate FiO2 08/08/20 16:30 97.6 78 18 138/66 (90) 94 Room Air 08/08/20 12:00 2.0 I&O- Last 24 Hours up to 6 AM 08/08/20 06:00 Intake Total 2990 ml Output Total 1250 ml Balance 1740 ml Laboratory Data 24H Labs Laboratory Tests 2 08/08/20 06:32: Prothrombin Time 23.5H, Prothromb Time International Ratio 2.04 08/08/20 08:22: Coronavirus (COVID-19)(PCR) NEGATIVE Microbiology Microbiology 08/05/20 Urine Culture - Final, Complete Escherichia Coli 08/05/20 Blood Culture - Preliminary, Resulted No Growth after 72 hours. All specime... 08/05/20 Blood Culture - Preliminary, Resulted No Growth after 72 hours. All specime... Assessment Review the CT scan shows the patient has some prominence of the renal pelvis and blunting of the right renal calyces and hydronephrosis extends to the UPJ and passed that point the ureter cannot be identified and appeared normal. This juncture between the hydronephrosis and the normal ureter is about the same level as the patient's gallbladder and pancreas. 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 Therefore recommended that she have a retrograde pyelogram and stent insertion. I discussed this with the patient along with the possible complications of infection, pain, bleeding and perforation. She agreed to proceed with the stent insertion. Plan Patient is planned to have a right retrograde pyelogram and a double-J stent inserted in surgery. Time Spent on Consult: Time Spent / Consult (Minutes): 75 DARCIE ZURITA MD Aug 08, 2020 20:08
--- NOTE | 2020-08-08 20:14 | ROOPDOC ---
[facility] Report Of Operation Report of Operation DATE OF PROCEDURE: 08/08/20 PREPROCEDURE DIAGNOSES: Right hydronephrosis and UPJ obstruction POSTPROCEDURE DIAGNOSES: Same PROCEDURE: Cystoscopy, right retrograde pyelogram and stent insertion and x-ray interpretation with fluoroscopy SURGEON: Yong Merrill MD METALLOGRAPHY TEACHER: None ANESTHESIA: Mac with local lidocaine ESTIMATED BLOOD LOSS: Approximately 0 mL. COMPLICATIONS: None REMARKS: The patient appeared to have a kinking of the proximal ureter at the UPJ. I could not fully determine if this was stricturing or extrinsic compression or congenital narrowing. PROCEDURE NOTE: Patient is brought to the operating room for retrograde pyelogram and stent insertion because of vague abdominal pains and right hydronephrosis with blunting of the renal calyces. DESCRIPTION OF PROCEDURE: The patient is placed on table in supine position, given Mac anesthesia, placed in lithotomy position, prepped with Betadine paint and draped in an aseptic manner. Timeout was then performed. The urethra was then anesthetized with lidocaine gel using a Urojet syringe. A 21 [place] cystoscope was then inserted at the meatus and advanced under direct vision of a 30 lens and the bladder. In the bladder, the mucosa appeared normal. The right ureteral orifice as well as the left had some reflux of urine present that appeared normal. The right ureteral orifices was then catheterized with a 5 [place] open-ended Pollack catheter and retrograde injection of 10 mL showed the patient had a normal ureter up to the UPJ area. At this point there was some J hooking and tortuosity. There is also proximal to this distinct hydro-nephrosis. A wire guide was then passed up to the renal pelvis over which a 5 [place] double-J stent was passed. Both ends curled well when the wire was removed. The bladder was then drained, cystoscope was removed and the patient was awakened and sent to recovery room stable condition having tolerated procedure well. Fluoroscopy is used throughout the case to determine the nature of the obstruction and to place ureteral stents. The stent will be left in place until we can determine if this has an effect on the patient's pain or renal function. YONG MERRILL MD Aug 08, 2020 20:14
--- NOTE | 2020-08-08 20:17 | IPNPDOC ---
Subjective Review oF Systems Chief Complaint The patient is a 59-year-old female admitted with a reason for visit of Acute Pancreatitis. Events since Last Encounter I saw the patient this evening after having placed a double-J stent this morning. She reports distinct improvement in her back and abdominal pain. She also noticed that she is urinating much more volume now. General: Reports: Normal Appetite; Denies: Fatigue, Malaise Constitutional: Denies: Fever, Chills, Sweats, Weakness, Malaise Eyes: Denies: Pain, Vision change Genitourinary: Reports: Other Symptoms (some hematuria secondary to the urete ral stent); Denies: Dysuria, Frequency, Incontinence, Hematuria Musculoskeletal: Denies: Neck Pain, Back Pain Objective Physical Examination ABDOMEN EXAM: Normal bowel sounds, Soft; No: Tenderness, Hepatospenomegaly Vital Signs/I&O Vital Signs Date Time Temp Pulse Resp B/P (MAP) Pulse Ox O2 Delivery O2 Flow Rate FiO2 08/08/20 16:30 97.6 78 18 138/66 (90) 94 Room Air 08/08/20 12:00 2.0 I&O- Last 24 Hours up to 6 AM 08/08/20 06:00 Intake Total 2990 ml Output Total 1250 ml Balance 1740 ml Laboratory Data Labs 24H Laboratory Tests 2 08/08/20 06:32: Prothrombin Time 23.5H, Prothromb Time International Ratio 2.04 08/08/20 08:22: Coronavirus (COVID-19)(PCR) NEGATIVE Microbiology Microbiology 08/05/20 Urine Culture - Final, Complete Escherichia Coli 08/05/20 Blood Culture - Preliminary, Resulted No Growth after 72 hours. All specime... 08/05/20 Blood Culture - Preliminary, Resulted No Growth after 72 hours. All specime... Assessment/Plan Date Seen The patient was seen on 08/08/20. Patient Summary At this point the patient seems to have some improvement in her abdominal pain after stent insertion Plan/VTE VTE Prophylaxis Ordered?: No Plan Labs ordered for the morning to evaluate renal function. I will also see the patient to see if her pain continues to have stayed improved. DARCIE ZURITA MD Aug 08, 2020 20:17
[2020-08-08] MEDS: RAMELTEON 8 MG TAB (ROZEREM) JT SCH (20:39)
[2020-08-08] MEDS: oxyCODONE 5MG TAB JT PRN (20:40)
[2020-08-08] MEDS: ONDANSETRON 4 MG ORAL DISINTEGRATING TAB PO PRN (20:40)
[2020-08-08] MEDS: SENNA 8.6 MG TAB (SENOKOT) JT SCH (20:42)
[2020-08-08] MEDS: MICONAZOLE-7 VAGINAL 2% CREAM 47.7 GM PV SCH (20:45)
[2020-08-09 00:30] VITALS: BP 140/71
[2020-08-09] MEDS: METOCLOPRAMIDE INJ 10MG/2ML VIAL (J2765 PER 1) IV SCH ×2 (00:43→05:23)
[2020-08-09 05:13] VITALS: BP 135/72
[2020-08-09] MEDS: MORPHINE 2 MG/ML 1ML VIAL (J2270) IV PRN (05:24)
[2020-08-09 06:49] LABS: HEMATOCRIT 32.8 % (36.0-47.0); HEMOGLOBIN 9.9 g/dl (12.0-15.5); MEAN CORPUSCULAR HEMOGLOBIN 26.5 pg (27.0-33.0); MEAN CORPUSCULAR HGB CONC 30.2 g/dl (32.0-36.5); MEAN CORPUSCULAR VOLUME 87.7 fl (80.0-96.0); PLATELET COUNT, AUTOMATED 533 10^3/uL (150-450); RED BLOOD COUNT 3.74 10^6/uL (4.00-5.40)
[2020-08-09 06:59] LABS: INR 2.1
[2020-08-09 07:09] LABS: BLOOD UREA NITROGEN 16 MG/DL (7-18); CALCIUM LEVEL 8.7 MG/DL (8.5-10.1); CARBON DIOXIDE LEVEL 27 MEQ/L (21-32); CHLORIDE LEVEL 105 MEQ/L (98-107); GLOMERULAR FILTRATION RATE > 60.0 (>51); GLUCOSE, FASTING 103 MG/DL (70-100); POTASSIUM SERUM 3.6 MEQ/L (3.5-5.1); SODIUM LEVEL 139 MEQ/L (136-145)
[2020-08-09] MEDS: MAGIC MOUTHWASH SUSPENSION BTL SSP SCH ×3 (08:26→20:34)
[2020-08-09] MEDS: REMEDY PHYTOPLEX Z-GUARD PASTE 113GM TUBE (FROM STOREROOM PRODUCT) TOP SCH ×4 (08:26→20:38)
[2020-08-09] MEDS: DOCUSATE SOD LIQ 100MG/10ML UDC JT SCH ×3 (08:41→20:33)
[2020-08-09] MEDS ORDERED: METOCLOPRAMIDE INJ 10MG/2ML VIAL (J2765 PER 1) IV PRN (08:55)
[2020-08-09] MEDS: MIRALAX *UNIT DOSE* 17GM PACKET JT SCH ×2 (09:00→20:34)
[2020-08-09] MEDS: ESCITALOPRAM OXALATE 10 MG TAB (LEXAPRO) PO SCH (09:23)
[2020-08-09] MEDS: cefTRIAXone SOD 2 GM in D5W MINI-BAG PLUS 50 ML IV SCH (09:23)
[2020-08-09] MEDS: ONDANSETRON 4 MG ORAL DISINTEGRATING TAB PO PRN ×2 (09:23→17:14)
[2020-08-09] MEDS: FENOFIBRATE 48 MG TAB (TRICOR) JT SCH (09:23)
[2020-08-09] MEDS: FAMOTIDINE 20 MG TAB JT SCH ×2 (09:23→20:39)
[2020-08-09] MEDS: MAGNESIUM OXIDE 400MG TAB (MAG-OX) JT SCH (09:23)
[2020-08-09] MEDS: ATORVASTATIN 20 MG TAB JT SCH (09:24)
[2020-08-09] MEDS: oxyCODONE 5MG TAB JT PRN ×3 (09:25→21:09)
--- NOTE | 2020-08-09 10:33 | IPNPDOC ---
Subjective Review oF Systems Chief Complaint The patient is a 59-year-old female admitted with a reason for visit of Acute Pancreatitis. Events since Last Encounter Patient continues to be comfortable with significant improvement in her pain level since stent insertion. General: Reports: Normal Appetite; Denies: Fatigue, Malaise Constitutional: Denies: Fever, Chills, Sweats, Weakness, Malaise Eyes: Denies: Pain, Vision change ENT: Denies: Head Aches, Sore Throat, Epistaxis Skin: Denies: Rash, Lesions, Breakdown, Nail Changes Gastrointestinal: Denies: Nausea, Vomiting, Abdominal Pain Objective Physical Examination General Exam: Alert, No Acute Distress Eye Exam: PERRLA, Conjunctiva & lids normal, EOMI; No: Sclera icteric ABDOMEN EXAM: Normal bowel sounds, Soft; No: Tenderness, Hepatospenomegaly Vital Signs/I&O Vital Signs Date Time Temp Pulse Resp B/P (MAP) Pulse Ox O2 Delivery O2 Flow Rate FiO2 08/09/20 09:25 18 Room Air 08/09/20 05:13 97.7 84 135/72 (93) 96 08/08/20 12:00 2.0 I&O- Last 24 Hours up to 6 AM 08/09/20 06:00 Intake Total 935 ml Output Total 2050 ml Balance -1115 ml Laboratory Data Labs 24H Laboratory Tests 2 08/09/20 06:19: Nucleated Red Blood Cells % (auto) 0.0, Prothrombin Time 24.0H, Prothromb Time International Ratio 2.10, Anion Gap 7L, Glomerular Filtration Rate > 60.0, Calcium Level 8.7 CBC/BMP Laboratory Tests 08/09/20 06:19 Microbiology Microbiology 08/05/20 Urine Culture - Final, Complete Escherichia Coli 08/05/20 Blood Culture - Preliminary, Resulted No Growth after 72 hours. All specime... 08/05/20 Blood Culture - Preliminary, Resulted No Growth after 72 hours. All specime... Assessment/Plan Date Seen The patient was seen on 08/09/20. Patient Summary Creatinine and EGFR remained stable. Patient had no longer has abdominal pain. She states she still has a little bit of back pain but significantly improved. Hematocrit continues to fall slowly Plan/VTE VTE Prophylaxis Ordered?: Yes Plan Plan to keep the ureteral stent in place until the pancreatic and other abdominal process have improved to some point she will need a follow-up CT scan as an outpatient. Once all the inflammation and retroperitoneal processes have resolved, the stent can be removed and she can be reevaluated with ultrasound to see if the hydronephrosis has returned. DARCIE ZURITA MD Aug 09, 2020 10:33
--- NOTE | 2020-08-09 11:01 | IPN ---
SURGICAL PROGRESS NOTE DATE: 08/07/2020 SUBJECTIVE: Patient's feeding tube has been working well since we unclogged it yesterday; however, there was some question about the elevated white count and inflammatory process, but more importantly the issue of the oral intake, etc. From reviewing her CT scan she has a large fluid collection near the head of the pancreas on the posterior aspect of the duodenum actually compressing and obstructing the duodenum. Given that she had a decreasing hematocrit it was initially felt that this was a hematoma and given bleeding associated with pancreatitis the diagnosis of hemorrhagic pancreatitis was given. At this time there is definitely some fluid collection in this area, but it is quite dense moreso than just watery fluid on the CT scan and would suggest that this is more likely either a hematoma that is probably slowly resolving or potentially a developing pseudocyst. I do feel that given the planes that I see on the CT scan it is more likely a hematoma. In any case given that this is obstructing the lumen and when I look at where the lumen should be it probably is 5-7 mm in diameter at most and then with the feeding tube going through there which is about 3-4 mm there is not really much ability for additional fluid to go by this area at this time thus she is functionally obstructed and has gastric outlet obstruction. Given that this is probably obstructing the distal second portion of the duodenum the bile ducts are not being obstructed, but the bile is not flowing downstream and thus returning to the stomach where it is being dumped back into the stomach and the gastrostomy output is indicative of this. She does not have any true significant pain or discomfort at this area, but still has some pain around the traction sutures that are up against the abdominal wall in this area. I will have the nurses remove these traction sutures on the abdominal wall, but I am not seeing any evidence of cellulitis or infectious process. I do on the CT scan see some inflammatory changes right between the stomach wall and the abdominal wall consistent with post-operative gastrostomy tube placement. IMPRESSION AND PLAN: Patient is status post gastric jejunojejunostomy tube placement. Unfortunately given her current situation and the hematoma obstructing the duodenum at this time I think the best course of action is to continue with tube feeds, gastric tube decompression; however, I would like the nurses to start clamping the tube and checking residuals every hour and if we can slowly get some additional fluid through that area it might gradually open up a little bit quicker. Once the G-tube output decrease substantially and we are able to clamp this for a prolonged period of time then my recommendation is to then try her with some sips of clears/clear liquids, but I anticipate if this is a hematoma it may still take 4-6 weeks for this to resolve enough for this to allow her to decompress her stomach adequately. If this is a developing pseudocyst this might be even a longer term situation.
[2020-08-09 14:00] VITALS: BP 140/79
[2020-08-09] MEDS: WARFARIN SOD 5MG TAB PO SCH (17:13)
[2020-08-09 20:00] VITALS: BP 141/63
[2020-08-09] MEDS: SENNA 8.6 MG TAB (SENOKOT) JT SCH (20:34)
[2020-08-09] MEDS: MICONAZOLE-7 VAGINAL 2% CREAM 47.7 GM PV SCH (20:39)
[2020-08-09] MEDS: RAMELTEON 8 MG TAB (ROZEREM) JT SCH (20:39)
[2020-08-09] MEDS: ONDANSETRON 4MG/2ML VIAL IV PRN (21:09)
[2020-08-10 06:00] VITALS: BP 155/79
[2020-08-10 06:54] LABS: BASO # 0.1 10^3/uL (0.0-0.2); BASO % 0.8 % (0.0-1.0); EOS # 0.2 10^3/uL (0.0-0.5); EOS % 1.8 % (0.0-3.0); HEMATOCRIT 34.8 % (36.0-47.0); HEMOGLOBIN 10.7 g/dl (12.0-15.5); LYMPH # 2.9 10^3/uL (1.5-5.0); LYMPH % 24.9 % (24.0-44.0); MEAN CORPUSCULAR HGB CONC 30.7 g/dl (32.0-36.5); MEAN CORPUSCULAR VOLUME 87.7 fl (80.0-96.0); MONO # 1.2 10^3/uL (0.0-0.8); MONO % 10.2 % (2.0-8.0); NEUTROPHILS # 6.7 10^3/uL (1.5-8.5); NEUTROPHILS % 57.5 % (36.0-66.0); PLATELET COUNT, AUTOMATED 543 10^3/uL (150-450); RED BLOOD COUNT 3.97 10^6/uL (4.00-5.40); WHITE BLOOD COUNT 11.7 10^3/uL (4.0-10.0)
[2020-08-10 07:15] LABS: INR 1.99
[2020-08-10 07:23] LABS: BLOOD UREA NITROGEN 18 MG/DL (7-18); CALCIUM LEVEL 8.8 MG/DL (8.5-10.1); CARBON DIOXIDE LEVEL 27 MEQ/L (21-32); CHLORIDE LEVEL 104 MEQ/L (98-107); CREATININE FOR GFR 0.63 MG/DL (0.55-1.30); GLOMERULAR FILTRATION RATE > 60.0 (>51); GLUCOSE, FASTING 103 MG/DL (70-100); SODIUM LEVEL 138 MEQ/L (136-145)
[2020-08-10] MEDS: MIRALAX *UNIT DOSE* 17GM PACKET JT SCH ×2 (09:00→20:24)
[2020-08-10] MEDS: MAGIC MOUTHWASH SUSPENSION BTL SSP SCH ×3 (09:00→20:24)
[2020-08-10] MEDS ORDERED: VITAMIN D 50,000 UNITS CAPSULE (ERGOCALCIFEROL 1.25MG) JT SCH (09:00)
[2020-08-10] MEDS: FENOFIBRATE 48 MG TAB (TRICOR) JT SCH (09:41)
[2020-08-10] MEDS: cefTRIAXone SOD 2 GM in D5W MINI-BAG PLUS 50 ML IV SCH (09:41)
[2020-08-10] MEDS: DOCUSATE SOD LIQ 100MG/10ML UDC JT SCH ×3 (09:41→20:24)
[2020-08-10] MEDS: MAGNESIUM OXIDE 400MG TAB (MAG-OX) JT SCH (09:42)
[2020-08-10] MEDS: ATORVASTATIN 20 MG TAB JT SCH (09:42)
[2020-08-10] MEDS: ESCITALOPRAM OXALATE 10 MG TAB (LEXAPRO) PO SCH (09:42)
[2020-08-10] MEDS: FAMOTIDINE 20 MG TAB JT SCH ×2 (09:42→20:23)
[2020-08-10] MEDS: REMEDY PHYTOPLEX Z-GUARD PASTE 113GM TUBE (FROM STOREROOM PRODUCT) TOP SCH ×3 (09:44→20:23)
[2020-08-10] MEDS: oxyCODONE 5MG TAB JT PRN ×2 (10:00→20:23)
[2020-08-10] MEDS: ONDANSETRON 4MG/2ML VIAL IV PRN (13:19)
[2020-08-10 14:00] VITALS: BP 134/81
--- NOTE | 2020-08-10 15:48 | IPNPDOC ---
PM&R Progress Note DATE OF SERVICE: Aug 10, 2020 [place] Operator Progress Note Subjective: PAtient reporting her abdominal pain and nausea is much better since her ureteral stent was placed. SHe is happy to hear she is cleared to sip on chicken broth. REVIEW OF SYSTEMS: The following is a completed review of systems and has been reviewed. Review of systems otherwise unremarkable. PAIN: Patient self reports abdominal pain EYES: No recent vision changes EARS, NOSE, & THROAT: No throat pain, or dysphagia, or rhinorrhea CARDIOVASCULAR: Denies chest pain or palpitations PULMONARY: Denies shortness of breath GASTROINTESTINAL: denies constipation/nausea/vomiting GENITOURINARY: +dysuria MUSCULOSKELETAL: LUE weakness due to recent RTC surgery NEUROLOGICAL:no paresthesias or tremor HEMATOLOGICAL: denies easy bruising SKIN: no rash PSYCHIATRIC: +depressed All other review of systems found to be negative. PHYSICAL EXAMINATION: VITAL SIGNS: Please see below. GENERAL: Pleasant and cooperative. No acute distress. HEENT: PERRL. Extraocular movements intact. Clear conjunctiva CARDIOVASCULAR: Regular rate and rhythm. No murmurs, rubs, or gallops LUNGS: Clear to auscultation bilaterally. No wheezes. No rhonchi ABDOMEN: mildly distended, soft, no rebound tenderness, some RLQ TTP. Positive bowel sounds. Normal active bowel sounds NEUROLOGICAL: Alert and oriented times three. Cranial nerves II through XII grossly intact. Sensation grossly intact EXTREMITIES: 5\\5 strength bilateral upper extremities. 5\\5 strength right lower extremity. 5/5 strength in left lower extremity. SKIN: abdominal ostomy site, no qi-incisional induration ASSESSMENT:59-year-old F with past medical history of pancreatitis who presents status post new episode of pancreatitis s/p G-J tube placement PLAN: 1. Rehab- PT/OT advance mobility and ADLs, strengthen/stretch/maintain ROM all 4 limbs, LUE precautions in place for RTC surgery performed 05-20-21 2. Cardiac- HLD c/u statin and fenofibrate -monitor BPs, medicine consulted to assist in management 3. Neuro- hx of migraines, Zonisamide on hold as unable to administer oral solution without clogging J-tube 4. Resp- monitor for infection, encourage incentive spirometry 5. GI- patient with G-J tube in place for acute pancreatitis, NPO, c/u tube feeds, surgery following, can take up to 4-6 weeks for hematoma to resolve and be safe for po intake, -c/u zofran for nausea, reglan prn -pepcid BID for ppx 6. Vasc- patient on Lovenox-Coumadin bridge for portal vein thrombosis, monitor daily INR and H/H- may switch to DOAC upon d/c from ARU, treat for 6 months total 7. Heme- thrombocytosis improving 7. - Ucx + E.coli, c/u, Ceftriaxone- Dr. Rubio following, stop date 08/13/20 recs appreciated -s/p right ureteral stent placement for mild-mod hydronephrosis with patient reporting improvement in her abdominal symptoms, urology recs appreciated, will schedule outpatient f/u 8. Ortho- f/u with ortho for left RTC surgery performed 05-20-[address] Nixon 9. 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 Dispo-TBD Allergies Coded Allergies: TAPE (Verified Allergy, Mild, PLASTIC TAPE = RASH, 06/08/18) Vital Signs Vital Signs Date Time Temp Pulse Resp B/P (MAP) Pulse Ox O2 Delivery O2 Flow Rate FiO2 08/10/20 14:00 98.5 81 18 134/81 (98) 96 Room Air 08/08/20 12:00 2.0 Laboratory Data CBC/BMP Laboratory Tests 08/10/20 06:26 Labs 24H Laboratory Tests 2 08/10/20 06:26: Immature Granulocyte % (Auto) 4.8H, Neutrophils (%) (Auto) 57.5, Lymphocytes (%) (Auto) 24.9, Monocytes (%) (Auto) 10.2H, Eosinophils (%) (Auto) 1.8, Basophils (%) (Auto) 0.8, Neutrophils # (Auto) 6.7, Lymphocytes # (Auto) 2.9, Monocytes # (Auto) 1.2H, Eosinophils # (Auto) 0.2, Basophils # (Auto) 0.1, Nucleated Red Blood Cells % (auto) 0.0, Prothrombin Time 23.0H, Prothromb Time International Ratio 1.99, Anion Gap 7L, Glomerular Filtration Rate > 60.0, Calcium Level 8.8 Microbiology Microbiology 08/05/20 Urine Culture - Final, Complete Escherichia Coli 08/05/20 Blood Culture - Final, Complete NO GROWTH AFTER 5 DAYS 08/05/20 Blood Culture - Final, Complete NO GROWTH AFTER 5 DAYS Current Medications Current Medications Current Medications Medications (Trade) Dose Ordered Sig/Kacie Route PRN Reason Start Time Stop Time Status Last Admin Dose Admin Atorvastatin Calcium (Lipitor) 40 mg DAILY JT 08/05/20 09:00 08/06/20 10:46 DC 08/05/20 08:53 Atorvastatin Calcium (Lipitor) 40 mg DAILY JT 08/06/20 09:00 08/10/20 09:42 Capsaicin (Zostrix 0.025%) APPLY to back BID prn BIDP TOP 08/07/20 12:00 Ceftriaxone Sodium 2 gm/ Dextrose 50 ml @ 100 mls/hr Q24H IV 08/05/20 09:00 08/13/20 11:00 08/10/20 09:41 Dextrose/Sodium Chloride 1,000 ml @ 130 mls/hr Q7H42M IV 08/05/20 18:30 08/08/20 14:43 DC 08/08/20 08:06 Docusate Sodium (Colace Liquid) 100 mg TID JT 08/04/20 21:00 08/10/20 09:41 Enoxaparin Sodium (Lovenox) 100 mg Q12H SC 08/04/20 21:00 08/08/20 14:43 DC 08/07/20 21:34 Escitalopram Oxalate (Lexapro) 20 mg DAILY PO 08/05/20 09:00 08/06/20 10:47 DC 08/05/20 08:53 Escitalopram Oxalate (Lexapro) 20 mg DAILY PO 08/06/20 09:00 08/10/20 09:42 Famotidine (Pepcid I.v. Vial) 40 mg DAILY IV 08/06/20 09:00 08/06/20 10:43 DC 08/06/20 08:43 Famotidine (Pepcid) 20 mg BID JT 08/06/20 09:00 08/06/20 10:44 DC Famotidine (Pepcid) 20 mg BID JT 08/07/20 09:00 08/10/20 09:42 Famotidine (Pepcid) 40 mg DAILY JT 08/05/20 09:00 08/05/20 18:29 DC 08/05/20 08:53 Fenofibrate (Tricor) 48 mg DAILY JT 08/05/20 09:00 08/06/20 10:46 DC 08/05/20 08:53 Fenofibrate (Tricor) 48 mg DAILY JT 08/06/20 09:00 08/10/20 09:41 Home Med (Med Rec Complete!) ASDIRECTED XX 08/04/20 18:30 08/04/20 18:28 DC Lactated Ringer's 1,000 ml @ 30 mls/hr Q24H IV 08/08/20 14:40 08/09/20 08:59 DC Lactated Ringer's 1,000 ml @ 80 mls/hr [id number] IV 08/08/20 13:00 08/08/20 14:00 DC Lactobacillus Acidophilus (Bacid) 1 ea WMHS PO 08/05/20 12:30 08/05/20 14:38 DC 08/05/20 13:17 Lidocaine/ Diphenhydr/Alum/ Mg/Simeth (Magic Mouthwash) 5ML TID SSP 08/04/20 21:00 08/08/20 16:57 Magnesium Oxide (Mag-Ox) 400 mg DAILY JT 08/05/20 09:00 08/06/20 10:46 DC 08/05/20 08:53 Magnesium Oxide (Mag-Ox) 400 mg DAILY JT 08/06/20 09:00 08/10/20 09:42 Metoclopramide HCl (REGLAN INJection) 5 mg Q6H IV 08/05/20 12:00 08/09/20 08:59 DC 08/09/20 05:23 Metoclopramide HCl (REGLAN INJection) 5 mg Q6HP PRN IV NAUSEA OR VOMITING 08/09/20 08:55 Metronidazole (Flagyl) 500 mg TID JT 08/05/20 09:00 08/05/20 18:31 DC Metronidazole 500 mg/IV Miscellaneous Supplies 100 ml @ 100 mls/hr Q8H IV 08/05/20 19:00 08/07/20 11:11 DC 08/07/20 02:36 Miconazole Nitrate (Monistat-7) 1 APPLICATORFUL QHS PV 08/05/20 21:00 08/11/20 21:01 08/09/20 20:39 Morphine Sulfate (Morphine Sulfate Inj) 2 mg Q4HP PRN IV PAIN >5 08/05/20 20:55 08/09/20 05:24 Ondansetron HCl (ZOFRAN INJection) 4 mg Q4HP PRN IV NAUSEA OR VOMITING 08/05/20 09:15 08/10/20 13:19 Ondansetron HCl (Zofran Odt) 4 mg Q4HP PRN PO NAUSEA OR VOMITING 08/04/20 21:00 08/09/20 17:14 Oxycodone HCl (Roxicodone, Oxyir) 5 mg ASDIRECTED PRN PO PAIN LEVEL 1-4 08/08/20 13:00 08/08/20 14:00 DC Oxycodone HCl (Roxicodone, Oxyir) 5 mg Q4HP PRN JT PAIN 1-4 08/04/20 22:00 08/10/20 10:00 Polyethylene Glycol (Miralax) 1 pkt BID JT 08/04/20 21:00 08/07/20 21:33 Ramelteon (Rozerem) 8 mg QHS JT 08/04/20 21:00 08/09/20 20:39 Senna (Senokot) 1 tab QHS JT 08/04/20 21:00 08/07/20 21:33 Sodium Chloride 1,000 ml @ 130 mls/hr Q7H42M IV 08/05/20 09:15 08/05/20 18:27 DC 08/05/20 18:25 Vitamin D (Drisdol) 50,000 units Mo@0900 JT 08/10/20 09:00 08/06/20 10:34 DC Warfarin Sodium (Coumadin) 5 mg DAILY@17 PO 08/06/20 17:00 08/06/20 10:35 DC Warfarin Sodium (Coumadin) 5 mg DAILY@17 PO 08/07/20 17:00 08/09/20 17:13 Zonisamide (Zonegran 10mg/ ml Oral Susp) 100 mg BID JT 08/05/20 13:00 08/05/20 14:45 DC 08/05/20 13:17 Zonisamide (Zonegran) 100 mg BID JT 08/04/20 21:00 08/05/20 12:12 DC 08/04/20 21:24 SANDY BRANNON MD Aug 10, 2020 15:48
[2020-08-10] MEDS: WARFARIN SOD 5MG TAB PO SCH (16:11)
--- NOTE | 2020-08-10 17:17 | IPN ---
INFECTIOUS DISEASE PROGRESS NOTE DATE: 08/10/2020 SUBJECTIVE: Tanna is doing better. She was seen in consultation with Dr. Merrill from Urology, who placed a stent for right sided hydronephrosis with improvement in her back pain and abdominal pain. She still has some low back pain but is better. She does not have as much nausea. No vomiting. She is wondering whether she could have some broth, even without any noodles. She is starting to feel hungry. No fever or chills. A retrograde pyelogram done on 08/08 showed moderate right sided hydronephrosis with poor opacification of the proximal ureter. OBJECTIVE: PHYSICAL EXAMINATION: VITAL SIGNS: Temperature is 98.5, pulse 81, respirations 18, blood pressure 134/81. O2 sat =98 on room air. HEART: Normal S1, S2, no murmurs, rubs or gallops. LUNGS: Clear. No rales, rhonchi or wheezes. ABDOMEN: Soft, nontender. G-tube in place. EXTREMITIES: No clubbing, cyanosis, or edema. BACK: Mild lower lumbar tenderness. LABORATORY STUDIES: White count 11.7, hemoglobin 10.7, hematocrit 34.8, platelets 543, 57% neutrophils, 25% lymphocytes. Sodium 138, potassium 4, chloride 107, bicarbonate 27, BUN 18, creatinine 0.63, glucose 103, calcium 8.8, procalcitonin 0.050, CRP 0.81. Urine culture had 20,000 E-coli with right sided hydronephrosis. IMPRESSION: 1. Leukocytosis could have been a combination of E-coli, pyelonephritis with right sided hydronephrosis, improved on IV Rocephin with her pancreatitis. 2. Pancreatitis improving. The patient is begging to have some chicken broth and Dr.Leo Cai has approved it. PLAN: 1. Advance diet to chicken broth 2. Discontinue IV Ceftriaxone after 10 days of therapy which would be August 13. 3. Discontinue Senokot - The patient has been refusing it and has been refusing also Miralax as she is having two to four bowel movements a day. [facility]
[2020-08-10 20:00] VITALS: BP 130/79
[2020-08-10] MEDS: RAMELTEON 8 MG TAB (ROZEREM) JT SCH (20:23)
[2020-08-10] MEDS: MICONAZOLE-7 VAGINAL 2% CREAM 47.7 GM PV SCH (20:24)
[2020-08-11 05:48] VITALS: BP 150/88
[2020-08-11 06:25] LABS: INR 1.9; PROTHROMBIN TIME 22.2 SECONDS (12.5-14.3)
[2020-08-11] MEDS: ATORVASTATIN 20 MG TAB JT SCH (08:24)
[2020-08-11] MEDS: ESCITALOPRAM OXALATE 10 MG TAB (LEXAPRO) PO SCH (08:24)
[2020-08-11] MEDS: MAGNESIUM OXIDE 400MG TAB (MAG-OX) JT SCH (08:24)
[2020-08-11] MEDS: oxyCODONE 5MG TAB JT PRN ×3 (08:25→21:04)
[2020-08-11] MEDS: FENOFIBRATE 48 MG TAB (TRICOR) JT SCH (08:26)
[2020-08-11] MEDS: DOCUSATE SOD LIQ 100MG/10ML UDC JT SCH ×3 (08:26→21:00)
[2020-08-11] MEDS: FAMOTIDINE 20 MG TAB JT SCH ×2 (08:26→21:03)
[2020-08-11] MEDS: cefTRIAXone SOD 2 GM in D5W MINI-BAG PLUS 50 ML IV SCH (08:27)
[2020-08-11] MEDS: MIRALAX *UNIT DOSE* 17GM PACKET JT SCH ×2 (08:29→21:00)
[2020-08-11] MEDS: REMEDY PHYTOPLEX Z-GUARD PASTE 113GM TUBE (FROM STOREROOM PRODUCT) TOP SCH ×3 (08:30→21:04)
[2020-08-11] MEDS: MAGIC MOUTHWASH SUSPENSION BTL SSP SCH ×3 (08:30→21:00)
[2020-08-11] MEDS: ONDANSETRON 4 MG ORAL DISINTEGRATING TAB PO PRN (08:37)
[2020-08-11] MEDS: WARFARIN SOD 5MG TAB PO SCH (17:08)
--- NOTE | 2020-08-11 17:56 | IPN ---
INFECTIOUS DISEASE PROGRESS NOTE DATE: 08/11/2020 SUBJECTIVE: Tanna seems to be doing better. She continues to improve daily. She may be discharged home on . She has tolerated clear broth without worsening nausea, vomiting or abdominal pain. She has mild abdominal pain and back pain but at baseline. She still has some hematuria after the stent was placed and she has a jabbing pain down the right groin. OBJECTIVE: PHYSICAL EXAMINATION: HEART: Normal S1, S2, no murmurs. LUNGS: Clear. ABDOMEN: Soft, nontender. G-tube in place with still at least 1,000 mL of gastric fluid in the gastrostomy tube bag. EXTREMITIES: No clubbing, cyanosis, or edema. LABORATORY STUDIES: White count 11.7, hemoglobin 10.7, hematocrit 34.8, platelet count 543. IMPRESSION: 1. E-coli bacteria with right sided hydronephrosis that was pending - The patient has been on IV Rocephin. Plan to discontinue antibiotics on August 13. 2. Pancreatitis improving with no evidence of pancreatic abscess. Clinically improving. The patient is asking to have some jello along with her chicken broth. I have asked Dr. Cai but I have not received an answer back. PLAN: Infectious Disease signing off.
[2020-08-11 20:00] VITALS: BP 137/86
[2020-08-11 20:09] LABS: BILIRUBIN, URINE MANUAL NEGATIVE (NEGATIVE); GLUCOSE, URINE (UA) MANUAL NEGATIVE (NEGATIVE); KETONE, URINE MANUAL NEGATIVE (NEGATIVE); UROBILINOGEN, URINE MANUAL NORMAL (NORMAL)
[2020-08-11 20:26] LABS: RBC, URINE TNTC /hpf (0-3)
[2020-08-11 20:27] LABS: BACTERIA, URINE MOD AMOUNT; MUCUS, URINE SMALL AMOUNT (NEGATIVE); RENAL EPITHELIAL CELLS, URINE SMALL AMOUNT /hpf; SQUAMOUS EPITHELIAL CELL URINE MOD AMOUNT /hpf (SMALL AMT)
[2020-08-11 20:28] LABS: HYALINE CAST, URINE NONE SEEN /lpf (0-1)
[2020-08-11] MEDS: RAMELTEON 8 MG TAB (ROZEREM) JT SCH (21:03)
[2020-08-11] MEDS: MICONAZOLE-7 VAGINAL 2% CREAM 47.7 GM PV SCH (21:04)
[2020-08-12 05:18] LABS: BASO # 0.1 10^3/uL (0.0-0.2); BASO % 1.2 % (0.0-1.0); EOS # 0.4 10^3/uL (0.0-0.5); EOS % 3.3 % (0.0-3.0); HEMATOCRIT 38.3 % (36.0-47.0); HEMOGLOBIN 11.6 g/dl (12.0-15.5); LYMPH # 3.3 10^3/uL (1.5-5.0); LYMPH % 27.9 % (24.0-44.0); MEAN CORPUSCULAR HEMOGLOBIN 26.1 pg (27.0-33.0); MEAN CORPUSCULAR HGB CONC 30.3 g/dl (32.0-36.5); MEAN CORPUSCULAR VOLUME 86.3 fl (80.0-96.0); MONO # 1.2 10^3/uL (0.0-0.8); MONO % 9.6 % (2.0-8.0); NEUTROPHILS # 6.4 10^3/uL (1.5-8.5); NEUTROPHILS % 53.2 % (36.0-66.0); PLATELET COUNT, AUTOMATED 511 10^3/uL (150-450); RED BLOOD COUNT 4.44 10^6/uL (4.00-5.40)
[2020-08-12 05:27] LABS: INR 1.84; PROTHROMBIN TIME 21.7 SECONDS (12.5-14.3)
[2020-08-12 05:48] LABS: BLOOD UREA NITROGEN 28 MG/DL (7-18); CALCIUM LEVEL 9.4 MG/DL (8.5-10.1); CARBON DIOXIDE LEVEL 27 MEQ/L (21-32); CHLORIDE LEVEL 101 MEQ/L (98-107); CREATININE FOR GFR 0.72 MG/DL (0.55-1.30); GLOMERULAR FILTRATION RATE > 60.0 (>51); GLUCOSE, FASTING 111 MG/DL (70-100); POTASSIUM SERUM 4.6 MEQ/L (3.5-5.1); SODIUM LEVEL 135 MEQ/L (136-145)
[2020-08-12 06:00] VITALS: BP 127/69
[2020-08-12] MEDS: ONDANSETRON 4MG/2ML VIAL IV PRN ×2 (06:22→21:25)
[2020-08-12] MEDS: MIRALAX *UNIT DOSE* 17GM PACKET JT SCH ×2 (07:31→21:25)
[2020-08-12] MEDS: DOCUSATE SOD LIQ 100MG/10ML UDC JT SCH ×3 (07:31→21:25)
[2020-08-12] MEDS: MAGIC MOUTHWASH SUSPENSION BTL SSP SCH ×3 (07:32→21:00)
[2020-08-12] MEDS ORDERED: ISOVUE-370 76% 100ML VIAL As Ordered ONE (07:35)
[2020-08-12 08:43] VITALS: BP 131/93
[2020-08-12 08:48] VITALS: BP 131/78
[2020-08-12] MEDS: cefTRIAXone SOD 2 GM in D5W MINI-BAG PLUS 50 ML IV SCH (08:49)
--- NOTE | 2020-08-12 08:49 | REP ---
INDICATION: monitor size of hematoma. COMPARISON: None TECHNIQUE: Axial contrast-enhanced images from the lung bases to the pubic symphysis using 100 cc Isovue 370 intravenous contrast material. . This CT examination was performed using the following dose reduction techniques: Automated exposure control, adjustment of mA and/or kv according to the patient's size, and the use of iterative reconstruction technique. FINDINGS: There is a somewhat irregular complex collection in the right upper quadrant essentially inseparable from the duodenum and head/uncinate process of the pancreas which has decreased in size from prior examination and currently measures roughly 6.4 x 4.0 cm diameter and 7 cm in maximal craniocaudal length. Liver demonstrates stable hemangioma in the right lobe without further hepatic lesion identified. Patient is noted to be status post cholecystectomy. Portal vein demonstrates normal enhancement without evidence for portal venous thrombosis. Spleen, visualized pancreatic parenchyma, bilateral adrenal glands and left kidney are normal. Right kidney demonstrates hydroureteronephrosis with right ureteral stent placement in satisfactory position. A percutaneous gastrojejunostomy tube is in stable satisfactory position and there is no evidence for acute bowel obstruction. Sigmoid diverticula noted without acute diverticulitis. Rounded low-density lesion in the superior right hemipelvis and adjacent lobulated soft tissue (series 401, images [id number]) appears relatively stable and nonspecific in appearance. This may represent mass versus collapsed bowel. Further evaluation of the pelvis demonstrates presumed bulky rounded exophytic myomatous changes to the uterus warranting further investigation. No ascites. No free air. Abdominal aorta without aneurysm or dissection. Skeletal structures demonstrate age-related changes without acute osseous abnormality. IMPRESSION: 1. Complex collection/hematoma/complex pseudocyst in the right upper quadrant is decreased in size from prior examination. 2. Newly placed right ureteral stent with mild right hydronephrosis and collapsed ureter. 3. Questionable bowel versus lobulated mass in the retroperitoneal right hemipelvis remains unchanged. 4. 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 5. Postsurgical changes including percutaneous gastrojejunostomy tube in stable satisfactory position. 6. Further nonacute findings as above including stable hepatic hemangioma. <Electronically signed by Umang Henderson > 08/12/20 [id number]
[2020-08-12] MEDS: oxyCODONE 5MG TAB JT PRN ×2 (08:50→21:28)
[2020-08-12] MEDS: ATORVASTATIN 20 MG TAB JT SCH (08:50)
[2020-08-12] MEDS: FAMOTIDINE 20 MG TAB JT SCH ×2 (08:50→21:25)
[2020-08-12] MEDS: FENOFIBRATE 48 MG TAB (TRICOR) JT SCH (08:51)
[2020-08-12] MEDS: MAGNESIUM OXIDE 400MG TAB (MAG-OX) JT SCH (08:51)
[2020-08-12] MEDS: ESCITALOPRAM OXALATE 10 MG TAB (LEXAPRO) PO SCH (08:51)
[2020-08-12] MEDS: REMEDY PHYTOPLEX Z-GUARD PASTE 113GM TUBE (FROM STOREROOM PRODUCT) TOP SCH ×3 (09:00→21:00)
--- NOTE | 2020-08-12 09:22 | IPNPDOC ---
PM&R Progress Note DATE OF SERVICE: Aug 11, 2020 Psychologists Progress Note Subjective: PAtient reporting she still has some discomfort with urination and is wondering if she still has an infeciton despite being on antibiotics. REVIEW OF SYSTEMS: The following is a completed review of systems and has been reviewed. Review of systems otherwise unremarkable. PAIN: Patient self reports abdominal pain EYES: No recent vision changes EARS, NOSE, & THROAT: No throat pain, or dysphagia, or rhinorrhea CARDIOVASCULAR: Denies chest pain or palpitations PULMONARY: Denies shortness of breath GASTROINTESTINAL: denies constipation/nausea/vomiting GENITOURINARY: +dysuria MUSCULOSKELETAL: LUE weakness due to recent RTC surgery NEUROLOGICAL:no paresthesias or tremor HEMATOLOGICAL: denies easy bruising SKIN: no rash PSYCHIATRIC: +depressed All other review of systems found to be negative. PHYSICAL EXAMINATION: VITAL SIGNS: Please see below. GENERAL: Pleasant and cooperative. No acute distress. HEENT: PERRL. Extraocular movements intact. Clear conjunctiva CARDIOVASCULAR: Regular rate and rhythm. No murmurs, rubs, or gallops LUNGS: Clear to auscultation bilaterally. No wheezes. No rhonchi ABDOMEN: mildly distended, soft, no rebound tenderness, some RLQ TTP. Positive bowel sounds. Normal active bowel sounds NEUROLOGICAL: Alert and oriented times three. Cranial nerves II through XII grossly intact. Sensation grossly intact EXTREMITIES: 5\\5 strength bilateral upper extremities. 5\\5 strength right lower extremity. 5/5 strength in left lower extremity. SKIN: abdominal ostomy site, no qi-incisional induration ASSESSMENT:59-year-old F with past medical history of pancreatitis who presents status post new episode of pancreatitis s/p G-J tube placement PLAN: 1. Rehab- PT/OT advance mobility and ADLs, strengthen/stretch/maintain ROM all 4 limbs, LUE precautions in place for RTC surgery performed 05-20-21- room privileges 2. Cardiac- HLD c/u statin and fenofibrate -monitor BPs, medicine consulted to assist in management 3. Neuro- hx of migraines, Zonisamide on hold as unable to administer oral solution without clogging J-tube 4. Resp- monitor for infection, encourage incentive spirometry 5. GI- patient with G-J tube in place for acute pancreatitis, NPO except chicken broth, c/u tube feeds, surgery following, can take up to 4-6 weeks for hematoma to resolve and be safe for po intake- fu surgery in d/c, -c/u zofran for nausea, reglan prn -pepcid BID for ppx 6. Vasc- s/p Lovenox-Coumadin bridge for portal vein thrombosis,c/u warfarin and monitor daily INR and H/H- may switch to DOAC upon d/c from ARU will discuss with medicin, treat for 6 months total 7. Heme- thrombocytosis improving 7. - Ucx + E.coli, c/u, Ceftriaxone- Dr. Rubio following, stop date 08/13/20 recs appreciated -s/p right ureteral stent placement for mild-mod hydronephrosis with patient reporting improvement in her abdominal symptoms, urology recs appreciated, will schedule outpatient f/u -will recheck urine given persistent dysuria, she is finishing up course of monistat 7 for yeast infection 8. Ortho- f/u with ortho for left RTC surgery performed 05-20-[address] Nixon 9. Psych- c/u lexapro for depression 10. 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 Ztscu-4-8-21 to home Allergies Coded Allergies: TAPE (Verified Allergy, Mild, PLASTIC TAPE = RASH, 06/08/18) Vital Signs Vital Signs Date Time Temp Pulse Resp B/P (MAP) Pulse Ox O2 Delivery O2 Flow Rate FiO2 08/12/20 08:50 16 08/12/20 08:48 83 131/78 (95) 08/12/20 06:00 97.6 96 Room Air 08/08/20 12:00 2.0 Laboratory Data CBC/BMP Laboratory Tests 08/12/20 04:58 Labs 24H Laboratory Tests 2 08/11/20 19:34: Urine Color (NINI) BROWNH, Urine Appearance (NINI) TURBIDH, Urine pH (NINI) 5.5, Urine Specific Rachel (NINI) 1.025, Urine Protein 3+H, Bedside Urine Glucose (UA) NEGATIVE, Bedside Urine Ketones (LAB) NEGATIVE, Bedside Urine Blood POSITIVEH, Bedside Urine Nitrite (LAB) NEGATIVE, Bedside Urine Bilirubin (LAB) NEGATIVE, Bedside Urine Urobilinogen (LAB) NORMAL, Bedside Urine Leukocyte Mer rase (L POSITIVEH, Urine Sediment Examination PERFORMED, Urine RBC TNTCH, Urine WBC TNTCH, Urine Squamous Epithelial Cells MOD AMOUNTH, Urine Renal Epithelial Cells SMALL AMOUNTH, Urine Bacteria MOD AMOUNTH, Urine Hyaline Casts NONE SEEN, Urine Mucus SMALL AMOUNTH 08/12/20 04:58: Immature Granulocyte % (Auto) 4.8H, Neutrophils (%) (Auto) 53.2, Lymphocytes (%) (Auto) 27.9, Monocytes (%) (Auto) 9.6H, Eosinophils (%) (Auto) 3.3H, Basophils (%) (Auto) 1.2H, Neutrophils # (Auto) 6.4, Lymphocytes # (Auto) 3.3, Monocytes # (Auto) 1.2H, Eosinophils # (Auto) 0.4, Basophils # (Auto) 0.1, Nucleated Red Blood Cells % (auto) 0.0, Prothrombin Time 21.7H, Prothromb Time International Ratio 1.84, Anion Gap 7L, Glomerular Filtration Rate > 60.0, Calcium Level 9.4 Microbiology Microbiology 08/11/20 Urine Culture, Received Pending 08/05/20 Urine Culture - Final, Complete Escherichia Coli 08/05/20 Blood Culture - Final, Complete NO GROWTH AFTER 5 DAYS 08/05/20 Blood Culture - Final, Complete NO GROWTH AFTER 5 DAYS Current Medications Current Medications Current Medications Medications (Trade) Dose Ordered Sig/Kacie Route PRN Reason Start Time Stop Time Status Last Admin Dose Admin Atorvastatin Calcium (Lipitor) 40 mg DAILY JT 08/05/20 09:00 08/06/20 10:46 DC 08/05/20 08:53 Atorvastatin Calcium (Lipitor) 40 mg DAILY JT 08/06/20 09:00 08/12/20 08:50 Capsaicin (Zostrix 0.025%) APPLY to back BID prn BIDP TOP 08/07/20 12:00 Ceftriaxone Sodium 2 gm/ Dextrose 50 ml @ 100 mls/hr Q24H IV 08/05/20 09:00 08/13/20 11:00 08/12/20 08:49 Dextrose/Sodium Chloride 1,000 ml @ 130 mls/hr Q7H42M IV 08/05/20 18:30 08/08/20 14:43 DC 08/08/20 08:06 Docusate Sodium (Colace Liquid) 100 mg TID JT 08/04/20 21:00 08/11/20 17:07 Enoxaparin Sodium (Lovenox) 100 mg Q12H SC 08/04/20 21:00 08/08/20 14:43 DC 08/07/20 21:34 Escitalopram Oxalate (Lexapro) 20 mg DAILY PO 08/05/20 09:00 08/06/20 10:47 DC 08/05/20 08:53 Escitalopram Oxalate (Lexapro) 20 mg DAILY PO 08/06/20 09:00 08/12/20 08:51 Famotidine (Pepcid I.v. Vial) 40 mg DAILY IV 08/06/20 09:00 08/06/20 10:43 DC 08/06/20 08:43 Famotidine (Pepcid) 20 mg BID JT 08/06/20 09:00 08/06/20 10:44 DC Famotidine (Pepcid) 20 mg BID JT 08/07/20 09:00 08/12/20 08:50 Famotidine (Pepcid) 40 mg DAILY JT 08/05/20 09:00 08/05/20 18:29 DC 08/05/20 08:53 Fenofibrate (Tricor) 48 mg DAILY JT 08/05/20 09:00 08/06/20 10:46 DC 08/05/20 08:53 Fenofibrate (Tricor) 48 mg DAILY JT 08/06/20 09:00 08/12/20 08:51 Home Med (Med Rec Complete!) ASDIRECTED XX 08/04/20 18:30 08/04/20 18:28 DC Lactated Ringer's 1,000 ml @ 30 mls/hr Q24H IV 08/08/20 14:40 08/09/20 08:59 DC Lactated Ringer's 1,000 ml @ 80 mls/hr [id number] IV 08/08/20 13:00 08/08/20 14:00 DC Lactobacillus Acidophilus (Bacid) 1 ea WMHS PO 08/05/20 12:30 08/05/20 14:38 DC 08/05/20 13:17 Lidocaine/ Diphenhydr/Alum/ Mg/Simeth (Magic Mouthwash) 5ML TID SSP 08/04/20 21:00 08/08/20 16:57 Magnesium Oxide (Mag-Ox) 400 mg DAILY JT 08/05/20 09:00 08/06/20 10:46 DC 08/05/20 08:53 Magnesium Oxide (Mag-Ox) 400 mg DAILY JT 08/06/20 09:00 08/12/20 08:51 Metoclopramide HCl (REGLAN INJection) 5 mg Q6H IV 08/05/20 12:00 08/09/20 08:59 DC 08/09/20 05:23 Metoclopramide HCl (REGLAN INJection) 5 mg Q6HP PRN IV NAUSEA OR VOMITING 08/09/20 08:55 Metronidazole (Flagyl) 500 mg TID JT 08/05/20 09:00 08/05/20 18:31 DC Metronidazole 500 mg/IV Miscellaneous Supplies 100 ml @ 100 mls/hr Q8H IV 08/05/20 19:00 08/07/20 11:11 DC 08/07/20 02:36 Miconazole Nitrate (Monistat-7) 1 APPLICATORFUL QHS PV 08/05/20 21:00 08/11/20 21:01 DC 08/11/20 21:04 Morphine Sulfate (Morphine Sulfate Inj) 2 mg Q4HP PRN IV PAIN >5 08/05/20 20:55 08/09/20 05:24 Ondansetron HCl (ZOFRAN INJection) 4 mg Q4HP PRN IV NAUSEA OR VOMITING 08/05/20 09:15 08/12/20 06:22 Ondansetron HCl (Zofran Odt) 4 mg Q4HP PRN PO NAUSEA OR VOMITING 08/04/20 21:00 08/11/20 08:37 Oxycodone HCl (Roxicodone, Oxyir) 5 mg ASDIRECTED PRN PO PAIN LEVEL 1-4 08/08/20 13:00 08/08/20 14:00 DC Oxycodone HCl (Roxicodone, Oxyir) 5 mg Q4HP PRN JT PAIN 1-4 08/04/20 22:00 08/12/20 08:50 Polyethylene Glycol (Miralax) 1 pkt BID JT 08/04/20 21:00 08/07/20 21:33 Ramelteon (Rozerem) 8 mg QHS JT 08/04/20 21:00 08/11/20 21:03 Senna (Senokot) 1 tab QHS JT 08/04/20 21:00 08/10/20 16:13 DC 08/07/20 21:33 Sodium Chloride 1,000 ml @ 130 mls/hr Q7H42M IV 08/05/20 09:15 08/05/20 18:27 DC 08/05/20 18:25 Vitamin D (Drisdol) 50,000 units Mo@0900 JT 08/10/20 09:00 08/06/20 10:34 DC Warfarin Sodium (Coumadin) 5 mg DAILY@17 PO 08/06/20 17:00 08/06/20 10:35 DC Warfarin Sodium (Coumadin) 5 mg DAILY@17 PO 08/07/20 17:00 08/11/20 17:08 Zonisamide (Zonegran 10mg/ ml Oral Susp) 100 mg BID JT 08/05/20 13:00 08/05/20 14:45 DC 08/05/20 13:17 Zonisamide (Zonegran) 100 mg BID JT 08/04/20 21:00 08/05/20 12:12 DC 08/04/20 21:24 SANDY BRANNON MD Aug 12, 2020 09:22
--- NOTE | 2020-08-12 09:23 | IPNPDOC ---
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 REVIEW OF SYSTEMS: The following is a completed review of systems and has been reviewed. Review of systems otherwise unremarkable. PAIN: Patient self reports abdominal pain EYES: No recent vision changes EARS, NOSE, & THROAT: No throat pain, or dysphagia, or rhinorrhea CARDIOVASCULAR: Denies chest pain or palpitations PULMONARY: Denies shortness of breath GASTROINTESTINAL: denies constipation/nausea/vomiting GENITOURINARY: +dysuria MUSCULOSKELETAL: LUE weakness due to recent RTC surgery NEUROLOGICAL:no paresthesias or tremor HEMATOLOGICAL: denies easy bruising SKIN: no rash PSYCHIATRIC: +depressed All other review of systems found to be negative. PHYSICAL EXAMINATION: VITAL SIGNS: Please see below. GENERAL: Pleasant and cooperative. No acute distress. HEENT: PERRL. Extraocular movements intact. Clear conjunctiva CARDIOVASCULAR: Regular rate and rhythm. No murmurs, rubs, or gallops LUNGS: Clear to auscultation bilaterally. No wheezes. No rhonchi ABDOMEN: mildly distended, soft, no rebound tenderness, some RLQ TTP. Positive bowel sounds. Normal active bowel sounds NEUROLOGICAL: Alert and oriented times three. Cranial nerves II through XII g rossly intact. Sensation grossly intact EXTREMITIES: 5\\5 strength bilateral upper extremities. 5\\5 strength right lower extremity. 5/5 strength in left lower extremity. SKIN: abdominal ostomy site, no qi-incisional induration ASSESSMENT:59-year-old F with past medical history of pancreatitis who presents status post new episode of pancreatitis s/p G-J tube placement PLAN: 1. Rehab- PT/OT advance mobility and ADLs, strengthen/stretch/maintain ROM all 4 limbs, LUE precautions in place for RTC surgery performed 05-20-21- room privileges 2. Cardiac- HLD c/u statin and fenofibrate -monitor BPs, medicine consulted to assist in management 3. Neuro- hx of migraines, Zonisamide on hold as unable to administer oral solution without clogging J-tube 4. Resp- monitor for infection, encourage incentive spirometry 5. GI- patient with G-J tube in place for acute pancreatitis, NPO except chicken broth and jello (cleared by surgery), c/u tube feeds, surgery following, can take up to 4-6 weeks for hematoma to resolve and be safe for more po intake- fu surgery in d/c, -c/u zofran for nausea, reglan prn -pepcid BID for ppx 6. Vasc- s/p Lovenox-Coumadin bridge for portal vein thrombosis,c/u warfarin and monitor daily INR and H/H- may switch to DOAC upon d/c from ARU will discuss with medicine, treat for 6 months total 7. Heme- thrombocytosis improving 7. - Ucx + E.coli, c/u, Ceftriaxone- Dr. Rubio following, stop date 08/13/20 recs appreciated, -however patient with persistent dysuria despite being treated for yeast infection with repeat UA 08/11 showing +LE and bacteria, will transition to po on d/c -s/p right ureteral stent placement for mild-mod hydronephrosis with patient reporting improvement in her abdominal symptoms, urology recs appreciated, will schedule outpatient f/u n 8. Ortho- f/u with ortho for left RTC surgery performed 05-20-[address] Nixon 9. Psych- c/u lexapro for depression 10. 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 Qdplz-3-4-21 to home Allergies Coded Allergies: TAPE (Verified Allergy, Mild, PLASTIC TAPE = RASH, 06/08/18) Vital Signs Vital Signs Date Time Temp Pulse Resp B/P (MAP) Pulse Ox O2 Delivery O2 Flow Rate FiO2 08/12/20 08:50 16 08/12/20 08:48 83 131/78 (95) 08/12/20 06:00 97.6 96 Room Air 08/08/20 12:00 2.0 Laboratory Data CBC/BMP Laboratory Tests 08/12/20 04:58 Labs 24H Laboratory Tests 2 08/11/20 19:34: Urine Color (NINI) BROWNH, Urine Appearance (NINI) TURBIDH, Urine pH (NINI) 5.5, Urine Specific Corinne (NINI) 1.025, Urine Protein 3+H, Bedside Urine Glucose (UA) NEGATIVE, Bedside Urine Ketones (LAB) NEGATIVE, Bedside Urine Blood POSITIVEH, Bedside Urine Nitrite (LAB) NEGATIVE, Bedside Urine Bilirubin (LAB) NEGATIVE, Bedside Urine Urobilinogen (LAB) NORMAL, Bedside Urine Leukocyte Esterase (L POSITIVEH, Urine Sediment Examination PERFORMED, Urine RBC TNTCH, Urine WBC TNTCH, Urine Squamous Epithelial Cells MOD AMOUNTH, Urine Renal Epithelial Cells SMALL AMOUNTH, Urine Bacteria MOD AMOUNTH, Urine Hyaline Casts NONE SEEN, Urine Mucus SMALL AMOUNTH 08/12/20 04:58: Immature Granulocyte % (Auto) 4.8H, Neutrophils (%) (Auto) 53.2, Lymphocytes (%) (Auto) 27.9, Monocytes (%) (Auto) 9.6H, Eosinophils (%) (Auto) 3.3H, Basophils (%) (Auto) 1.2H, Neutrophils # (Auto) 6.4, Lymphocytes # (Auto) 3.3, Monocytes # (Auto) 1.2H, Eosinophils # (Auto) 0.4, Basophils # (Auto) 0.1, Nucleated Red Blood Cells % (auto) 0.0, Prothrombin Time 21.7H, Prothromb Time International Ratio 1.84, Anion Gap 7L, Glomerular Filtration Rate > 60.0, Calcium Level 9.4 Microbiology Microbiology 08/11/20 Urine Culture, Received Pending 08/05/20 Urine Culture - Final, Complete Escherichia Coli 08/05/20 Blood Culture - Final, Complete NO GROWTH AFTER 5 DAYS 08/05/20 Blood Culture - Final, Complete NO GROWTH AFTER 5 DAYS Current Medications Current Medications Current Medications Medications (Trade) Dose Ordered Sig/Kacie Route PRN Reason Start Time Stop Time Status Last Admin Dose Admin Atorvastatin Calcium (Lipitor) 40 mg DAILY JT 08/05/20 09:00 08/06/20 10:46 DC 08/05/20 08:53 Atorvastatin Calcium (Lipitor) 40 mg DAILY JT 08/06/20 09:00 08/12/20 08:50 Capsaicin (Zostrix 0.025%) APPLY to back BID prn BIDP TOP 08/07/20 12:00 Ceftriaxone Sodium 2 gm/ Dextrose 50 ml @ 100 mls/hr Q24H IV 08/05/20 09:00 08/13/20 11:00 08/12/20 08:49 Dextrose/Sodium Chloride 1,000 ml @ 130 mls/hr Q7H42M IV 08/05/20 18:30 08/08/20 14:43 DC 08/08/20 08:06 Docusate Sodium (Colace Liquid) 100 mg TID JT 08/04/20 21:00 08/11/20 17:07 Enoxaparin Sodium (Lovenox) 100 mg Q12H SC 08/04/20 21:00 08/08/20 14:43 DC 08/07/20 21:34 Escitalopram Oxalate (Lexapro) 20 mg DAILY PO 08/05/20 09:00 08/06/20 10:47 DC 08/05/20 08:53 Escitalopram Oxalate (Lexapro) 20 mg DAILY PO 08/06/20 09:00 08/12/20 08:51 Famotidine (Pepcid I.v. Vial) 40 mg DAILY IV 08/06/20 09:00 08/06/20 10:43 DC 08/06/20 08:43 Famotidine (Pepcid) 20 mg BID JT 08/06/20 09:00 08/06/20 10:44 DC Famotidine (Pepcid) 20 mg BID JT 08/07/20 09:00 08/12/20 08:50 Famotidine (Pepcid) 40 mg DAILY JT 08/05/20 09:00 08/05/20 18:29 DC 08/05/20 08:53 Fenofibrate (Tricor) 48 mg DAILY JT 08/05/20 09:00 08/06/20 10:46 DC 08/05/20 08:53 Fenofibrate (Tricor) 48 mg DAILY JT 08/06/20 09:00 08/12/20 08:51 Home Med (Med Rec Complete!) ASDIRECTED XX 08/04/20 18:30 08/04/20 18:28 DC Lactated Ringer's 1,000 ml @ 30 mls/hr Q24H IV 08/08/20 14:40 08/09/20 08:59 DC Lactated Ringer's 1,000 ml @ 80 mls/hr [id number] IV 08/08/20 13:00 08/08/20 14:00 DC Lactobacillus Acidophilus (Bacid) 1 ea WMHS PO 08/05/20 12:30 08/05/20 14:38 DC 08/05/20 13:17 Lidocaine/ Diphenhydr/Alum/ Mg/Simeth (Magic Mouthwash) 5ML TID SSP 08/04/20 21:00 08/08/20 16:57 Magnesium Oxide (Mag-Ox) 400 mg DAILY JT 08/05/20 09:00 08/06/20 10:46 DC 08/05/20 08:53 Magnesium Oxide (Mag-Ox) 400 mg DAILY JT 08/06/20 09:00 08/12/20 08:51 Metoclopramide HCl (REGLAN INJection) 5 mg Q6H IV 08/05/20 12:00 08/09/20 08:59 DC 08/09/20 05:23 Metoclopramide HCl (REGLAN INJection) 5 mg Q6HP PRN IV NAUSEA OR VOMITING 08/09/20 08:55 Metronidazole (Flagyl) 500 mg TID JT 08/05/20 09:00 08/05/20 18:31 DC Metronidazole 500 mg/IV Miscellaneous Supplies 100 ml @ 100 mls/hr Q8H IV 08/05/20 19:00 08/07/20 11:11 DC 08/07/20 02:36 Miconazole Nitrate (Monistat-7) 1 APPLICATORFUL QHS PV 08/05/20 21:00 08/11/20 21:01 DC 08/11/20 21:04 Morphine Sulfate (Morphine Sulfate Inj) 2 mg Q4HP PRN IV PAIN >5 08/05/20 20:55 08/09/20 05:24 Ondansetron HCl (ZOFRAN INJection) 4 mg Q4HP PRN IV NAUSEA OR VOMITING 08/05/20 09:15 08/12/20 06:22 Ondansetron HCl (Zofran Odt) 4 mg Q4HP PRN PO NAUSEA OR VOMITING 08/04/20 21:00 08/11/20 08:37 Oxycodone HCl (Roxicodone, Oxyir) 5 mg ASDIRECTED PRN PO PAIN LEVEL 1-4 08/08/20 13:00 08/08/20 14:00 DC Oxycodone HCl (Roxicodone, Oxyir) 5 mg Q4HP PRN JT PAIN 1-4 08/04/20 22:00 08/12/20 08:50 Polyethylene Glycol (Miralax) 1 pkt BID JT 08/04/20 21:00 08/07/20 21:33 Ramelteon (Rozerem) 8 mg QHS JT 08/04/20 21:00 08/11/20 21:03 Senna (Senokot) 1 tab QHS JT 08/04/20 21:00 08/10/20 16:13 DC 08/07/20 21:33 Sodium Chloride 1,000 ml @ 130 mls/hr Q7H42M IV 08/05/20 09:15 08/05/20 18:27 DC 08/05/20 18:25 Vitamin D (Drisdol) 50,000 units Mo@0900 JT 08/10/20 09:00 08/06/20 10:34 DC Warfarin Sodium (Coumadin) 5 mg DAILY@17 PO 08/06/20 17:00 08/06/20 10:35 DC Warfarin Sodium (Coumadin) 5 mg DAILY@17 PO 08/07/20 17:00 08/11/20 17:08 Zonisamide (Zonegran 10mg/ ml Oral Susp) 100 mg BID JT 08/05/20 13:00 08/05/20 14:45 DC 08/05/20 13:17 Zonisamide (Zonegran) 100 mg BID JT 08/04/20 21:00 08/05/20 12:12 DC 08/04/20 21:24 SANDY BRANNON MD Aug 12, 2020 09:23
[2020-08-12] MEDS: ONDANSETRON 4 MG ORAL DISINTEGRATING TAB PO PRN (10:52)
[2020-08-12 14:00] VITALS: BP 111/72
[2020-08-12] MEDS: LIDOCAINE 5% (LIDODERM) PATCH TD SCH (14:18)
[2020-08-12] MEDS ORDERED: WARFARIN SOD 3MG TAB PO SCH (17:00)
[2020-08-12 20:00] VITALS: BP 134/91
[2020-08-12] MEDS ORDERED: **NOTE PATIENT COMMENT** MISC XX SCH (21:00)
[2020-08-12] MEDS: RAMELTEON 8 MG TAB (ROZEREM) JT SCH (21:25)
[2020-08-13 05:20] VITALS: BP 142/90
[2020-08-13 06:25] LABS: INR 1.76; PROTHROMBIN TIME 20.9 SECONDS (12.5-14.3)
[2020-08-13] MEDS ORDERED: MAGN400T2 JT (08:21)
[2020-08-13] MEDS ORDERED: FAMO20TA JT (08:21)
[2020-08-13] MEDS ORDERED: ATOR1TAB21 JT (08:21)
[2020-08-13] MEDS ORDERED: LEXA1TAB PO (08:21)
[2020-08-13] MEDS ORDERED: FENO48TA7 JT (08:21)
[2020-08-13] MEDS ORDERED: OXYC-517 JT (08:22)
[2020-08-13] MEDS ORDERED: ELIQ5TAB JT (08:22)
[2020-08-13] MEDS ORDERED: LEVO750T13 JT (08:22)
[2020-08-13] MEDS: ESCITALOPRAM OXALATE 10 MG TAB (LEXAPRO) PO SCH (08:52)
[2020-08-13] MEDS: ATORVASTATIN 20 MG TAB JT SCH (08:52)
[2020-08-13] MEDS: FAMOTIDINE 20 MG TAB JT SCH (08:52)
[2020-08-13] MEDS: FENOFIBRATE 48 MG TAB (TRICOR) JT SCH (08:53)
[2020-08-13] MEDS: MAGNESIUM OXIDE 400MG TAB (MAG-OX) JT SCH (08:53)
[2020-08-13] MEDS: LIDOCAINE 5% (LIDODERM) PATCH TD SCH (08:53)
[2020-08-13] MEDS: cefTRIAXone SOD 2 GM in D5W MINI-BAG PLUS 50 ML IV SCH (08:53)
[2020-08-13] MEDS: DOCUSATE SOD LIQ 100MG/10ML UDC JT SCH (08:54)
[2020-08-13] MEDS: REMEDY PHYTOPLEX Z-GUARD PASTE 113GM TUBE (FROM STOREROOM PRODUCT) TOP SCH (08:54)
[2020-08-13] MEDS: MAGIC MOUTHWASH SUSPENSION BTL SSP SCH (08:54)
[2020-08-13] MEDS: MIRALAX *UNIT DOSE* 17GM PACKET JT SCH (08:54)
[2020-08-13] MEDS ORDERED: POLYSPORIN TOPICAL OINTMENT 15GM TOP SCH (09:00)
[2020-08-13] MEDS: oxyCODONE 5MG TAB JT PRN ×2 (09:10→13:53)
--- NOTE | 2020-08-13 09:55 | IPNPDOC ---
Date Seen The patient was seen on 08/13/20. Progress Note SUBJECTIVE: Patient was seen and examined at bedside. Doing well. Back pain persists slightly. Overall, no nausea, vomiting, chest pain, seizures of breath. . She denies any further bleeding. Has been tolerating warfarin well. I discussed with Dr. Goldstein. Given a decrease in size of the hematoma as well as improvement in her hemoglobin since admission. I think it is appropriate to switch her warfarin to look was antibiotic related for next 6 months. OBJECTIVE PHYSICAL EXAMINATION: VITAL SIGNS: please see below General: NAD, comfortable HEENT: PERRLA, EOMI, sclerae clear Neck: supple, normal ROM, no JVD Respiratory: lungs CTAB, no wheeze, no rales, no crackles CVS: RRR, normal S1, S2, no murmurs Abdo: soft, no masses, no hepatosplenomegaly, BS+, no rebound tenderness, surgical g-jejunostomy tube in place. Extremities: no edema, pulses 2+ MSK: no joint deformities, normal ROM Neuro: no focal neuro deficits, moving all 4 extremities, CN2-12 intact. Strength 5/5 in all 4 extremities. No nystagmus. Psych: calm, cooperative, AAO x 3 LABORATORY DATA, IMAGING STUDIES, MICROBIOLOGY: Please see below. DVT prophylaxis ordered?: on elilacey ASSESSMENT AND PLAN: 9 yo F with a hx of SBO, severe pancreatitis, first admitted to [facility] on 07/17/20, transfered to [facility] for higher level of care. Severe pancreatitis with hemorrhage, partial gastric outlet obstruction and flat lesions in duodenal bulb, with biopsies. PROBLEMS: # Acute pancreatitis with hemorrhage and partial gastric outlet obstruction - Went to surgery on 07/29/2020. Has gastrojejunal tube ostomy tube. - Tube feeds through J tube and output through G tube. # Portal vein thrombosis - noted on CTA abdo 07/24/20 - discussed risks with patient of bleeding vs risks of portal vein HTN, mesenteric ischemia and infarction - patient opted for anticoagulation with close monitoring - hgb has been improved. Size of hematoma has diminished on CT from 08/12/20. Pat ient agrees for AC with isidro - D/w Dr. Goldstein. #Flat lesions in duodenum: biopsied at [facility] on EGD. Sent re [facility] for records. 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 F/u with general surgery. #Vaginal candiasis: 7 day course of monistat #E coli UTI: completed course of ceftriaxone on 08/13/20. Dr. Rubio following #Hx of L knee surgery: f/u ortho outpatient #Thrombocytosis: improving #migraines: holding zonisamide, as cannot give through J tube without clogging # Vaginal spotting: resolved. F/u Gyne as outpatient. # GERD: Cannot put PPI in J-tube. famotidine # Dyslipidemia: Continue atorvastatin or fenofibrate # DVT ppx: SCD and TEDs VS, I&O, 24H, Fishbone Vital Signs/I&O Vital Signs Date Time Temp Pulse Resp B/P (MAP) Pulse Ox O2 Delivery O2 Flow Rate FiO2 08/13/20 09:10 16 08/13/20 05:20 97.6 92 142/90 (107) 96 Room Air 08/08/20 12:00 2.0 I&O- Last 24 Hours up to 6 AM 08/13/20 06:00 Intake Total 440 ml Output Total 2700 ml Balance -2260 ml Laboratory Data 24H LABS Laboratory Tests 2 08/13/20 05:38: Prothrombin Time 20.9H, Prothromb Time International Ratio 1.76 Microbiology Microbiology 08/11/20 Urine Culture, Received Pending 08/05/20 Urine Culture - Final, Complete Escherichia Coli 08/05/20 Blood Culture - Final, Complete NO GROWTH AFTER 5 DAYS 08/05/20 Blood Culture - Final, Complete NO GROWTH AFTER 5 DAYS LINDSEY ROB MD Aug 13, 2020 09:55
[2020-08-13] MEDS: ONDANSETRON 4 MG ORAL DISINTEGRATING TAB PO PRN (11:52)
[2020-08-13 14:00] VITALS: BP 140/72
--- NOTE | 2020-09-01 13:47 | PMRDS ---
NAME: MATTHEW VALADEZ [facility] WT ID#: [id number] : 1960 JOB: [id number] CE: 08/13/2020 ACCT: [id number] DOCTOR: SANDY BRANNON MD PMR DISCHARGE SUMMARY DATE OF ADMISSION: 08/04/2020 DATE OF DISCHARGE: 08/13/2020 CHIEF COMPLAINT/DISCHARGE DIAGNOSIS: Weakness in setting of pancreatitis and urinary tract infection. HISTORY OF PRESENT ILLNESS: A 69-year-old female with a past medical history of diverticulosis with multiple abdominal surgeries, pancreatitis from previous gallbladder surgery, gastroesophageal reflux disease (GERD), hiatal hernia, gastroparesis, low back pain, recent left shoulder rotator cuff repair, presented to [facility] ([facility]) on 08/01/2020 for worsening abdominal pain after recent acute pancreatitis and small-bowel obstruction (SBO), treated at [facility], where she was treated medically at first and had a duodenal lesion biopsy and gastrostomy-jejunostomy (G-J) ostomy tube placed on 07/29/2020. She was evaluated by in-house surgery, who recommended continuing of tube feeds until near resolution of her retroperitoneal hematoma. CT on 08/02/2020 showed "slightly smaller retroperitoneal hyperdense fluid collection near the pancreatic head and uncinate process, representing hemorrhagic pancreatitis or retroperitoneal bleed," and she was started on therapeutic Lovenox with bridge to Coumadin for portal vein thrombosis seen on CT abdomen and pelvis. She was noted to have some vaginal spotting; however, her hemoglobin and hematocrit remained stable. She had considerable weakness and difficulty with activities of daily living (ADLs) and mobility, deemed medically appropriate for discharge to acute rehabilitation unit (ARU) on . On initial evaluation, patient reports she feels depressed and would like start back on her Lexapro. She reports itching and burning with urination and persistent nausea and vomiting. She states she finally had one bowel movement (BM) but feels constipated. PAST MEDICAL HISTORY: As per history of present illness (HPI). HOSPITAL COURSE: Patient was admitted and enrolled in a comprehensive physical therapy (PT)/occupational therapy (OT) program. She received 24-hour nursing supervision, and weekly team meetings were held to discuss her progress. Patient's zonisamide for her history of migraines was held, as it clogged the J tube. Patient did not have any further migraines during her hospital course. Patient remained nothing by mouth for a period of time and eventually was upgraded to chicken broth and Jello with clearance from surgery. Her nausea and vomiting did resolve following a right ureteral stent placement for her minimal to moderate hydronephrosis, placed by Dr. Merrill on 08/08/2020. She was continued on ceftriaxone for urinary tract infection and finished a course of miconazole for yeast infection. Patient, however, complained of worsening dysuria, and repeat urine culture was ordered on 08/11/2020, showing positive leukocyte esterase and bacteria. She was transitional from intravenous (IV) ceftriaxone ultimately to oral Levaquin upon discharge for urinary tract infection. Patient's thrombocytosis improved, and she was maintained on Coumadin following Lovenox bridge for her portal vein thrombosis. On discharge she was switched from Coumadin to Eliquis. Infectious disease was consulted, who followed patient's care during her hospital course, and surgery also followed patient. She had some vaginal spotting. Her hemoglobin and hematocrit remained stable, and she was referred to HEALTH CARE COORDINATOR on discharge. Patient made steady gains in therapy and was deemed medically and functional stable to return home. Condition is improved. On 08/13/2020. DISCHARGE MEDICATIONS: As per instructions. FUNCTIONAL HISTORY ON DISCHARGE: Patient was modified independent for ADLs and ambulation. Thank you for this referral.
== END 2020-08-13 15:05 | disposition home health service (06) | DRG 861 ==
LOC: M PM&R 18:19
PROVIDERS: ADMIT Physical Medicine & Rehabilitation; ATTEND Physical Medicine & Rehabilitation
PROC: 0T768DZ Dilation of Right Ureter with Intraluminal Device, Via Natural or Artificial Opening Endoscopic (ICD-10-PCS; principal; 2020-08-08 08:30)
DX: R53.1 Weakness (principal); K31.84 Gastroparesis; F32.9 Major depressive disorder, single episode, unspecified; Z93.1 Gastrostomy status; K21.9 Gastro-esophageal reflux disease without esophagitis; K44.9 Diaphragmatic hernia without obstruction or gangrene; M54.5 Low back pain; Z74.09 Other reduced mobility; Z74.1 Need for assistance with personal care; K59.00 Constipation, unspecified; R30.0 Dysuria; Z87.891 Personal history of nicotine dependence; G43.909 Migraine, unspecified, not intractable, without status migrainosus; Z79.899 Other long term (current) drug therapy; Z91.048 Other nonmedicinal substance allergy status; E78.5 Hyperlipidemia, unspecified

== ENCOUNTER 2020-08-17 09:40 | Emergency (ER) | payer OTHER ==
[~2020-08-17] VITALS: Ht 167.6 cm; Wt 98.3 kg
[~2020-08-17 09:40] MED LIST changes: +ATOR1TAB21 JT; +BISA10SU PR; +DOCU10ELUD JT; +ELIQ5TAB JT; +FAMO20TA JT; +FENO48TA7 JT; +LEVO750T13 JT; +LEXA1TAB PO; +LOVE0.8I SC; +MAGN400T2 JT; +OXYC-517 JT; +POLY17PO18 JT; +ZONE1CAP JT
[2020-08-17] MEDS ORDERED: NS 1,000 ML IV SCH (10:25)
[2020-08-17 10:31] LABS: BASO # 0.1 10^3/uL (0.0-0.2); BASO % 0.7 % (0.0-1.0); EOS # 0.2 10^3/uL (0.0-0.5); EOS % 1.6 % (0.0-3.0); HEMATOCRIT 37.5 % (36.0-47.0); HEMOGLOBIN 11.4 g/dl (12.0-15.5); LYMPH # 2.4 10^3/uL (1.5-5.0); LYMPH % 26.4 % (24.0-44.0); MEAN CORPUSCULAR HEMOGLOBIN 26.7 pg (27.0-33.0); MEAN CORPUSCULAR HGB CONC 30.4 g/dl (32.0-36.5); MEAN CORPUSCULAR VOLUME 87.8 fl (80.0-96.0); MONO # 0.9 10^3/uL (0.0-0.8); MONO % 9.7 % (2.0-8.0); NEUTROPHILS # 5.5 10^3/uL (1.5-8.5); NEUTROPHILS % 60.2 % (36.0-66.0); PLATELET COUNT, AUTOMATED 353 10^3/uL (150-450); RED BLOOD COUNT 4.27 10^6/uL (4.00-5.40); WHITE BLOOD COUNT 9.2 10^3/uL (4.0-10.0)
[2020-08-17] MEDS ORDERED: ISOVUE-370 76% 100ML VIAL As Ordered ONE (10:39)
[2020-08-17 10:41] LABS: INR 1.01; PROTHROMBIN TIME 13.5 SECONDS (12.5-14.3)
[2020-08-17 11:02] LABS: ALBUMIN 3.3 GM/DL (3.2-5.2); ALT/SGPT 42 U/L (12-78); BILIRUBIN,DIRECT < 0.1 MG/DL (0.0-0.2); BILIRUBIN,TOTAL 0.2 MG/DL (0.2-1.0); LIPASE 357 U/L (73-393); TOTAL PROTEIN 6.7 GM/DL (6.4-8.2)
[2020-08-17] MEDS ORDERED: ONDANSETRON 4MG/2ML VIAL IV ONE (11:05)
[2020-08-17] MEDS ORDERED: MORPHINE 4 MG/ML 1ML VIAL/SYRINGE (J2270) IV PRN (11:05)
--- NOTE | 2020-08-17 11:12 | REP ---
INDICATION: abd pain. COMPARISON: 08/12/2020 TECHNIQUE: Axial contrast-enhanced images from the lung bases to the pubic symphysis using 100 cc Isovue 370 intravenous contrast material. Coronal and sagittal reformations obtained. This CT examination was performed using the following dose reduction techniques: Automated exposure control, adjustment of mA and/or kv according to the patient's size, and the use of iterative reconstruction technique. FINDINGS: Percutaneous gastrojejunostomy tube via the anterior abdominal wall is again identified and stable in position. The complex somewhat multiloculated fluid collection relatively inseparable from the duodenum and along the posterior aspect of the pancreatic uncinate process in the anterior pararenal retroperitoneal space is unchanged from recent prior examination. Surrounding inflammatory changes involving the head/uncinate region of the pancreas and adjacent fat is unchanged. Remainder of the pancreatic body/tail appears relatively normal. No new abnormal fluid collection is appreciated. Liver, spleen, bilateral adrenal glands and left kidney are normal. Patient is again noted to be status post cholecystectomy with compensatory biliary ductal dilatation similar to prior examination. Right kidney again demonstrates stable hydronephrosis with ureteral stent in satisfactory position. No evidence for bowel obstruction. Normal terminal ileum and appendix are identified in the right lower quadrant. Pelvis demonstrates stable presumed myomatous changes to the uterus and stable left adnexal cyst measuring 4.2 cm. No significant pelvic fluid or ascites. No free air. No significant adenopathy. Atherosclerotic changes to the aorta and vasculature noted without aneurysm or dissection. Musculoskeletal structures are stable. Lung bases are clear. IMPRESSION: 1. Known complex collection suggesting abscess versus pseudocyst along the posterior aspect of the uncinate process and inseparable from the adjacent duodenum is unchanged in appearance or size. No new acute process identified. 2. Further nonacute findings as described above remains stable. <Electronically signed by Umang Henderson > 08/17/20 [id number]
[2020-08-17] MEDS ORDERED: PERCOCET 5MG/325MG TAB PO ONE (15:00)
[2020-08-17 15:22] VITALS: BP 103/52
--- NOTE | 2020-08-17 16:00 | ECGEPIP ---
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
--- NOTE | 2020-08-18 10:21 | ED PDOC ---
Post-Departure Follow-Up dr jang faxed formal report of ct abd/p for fu Francisco Richard MD Aug 18, 2020 10:21
== END 2020-08-17 15:24 | disposition home or self-care (01) ==
LOC: M ED 09:40
DX: K94.23 Gastrostomy malfunction (principal); G89.29 Other chronic pain; M54.9 Dorsalgia, unspecified; R10.9 Unspecified abdominal pain; K21.9 Gastro-esophageal reflux disease without esophagitis; K44.9 Diaphragmatic hernia without obstruction or gangrene; E78.5 Hyperlipidemia, unspecified; K31.84 Gastroparesis; Z87.891 Personal history of nicotine dependence; Z79.01 Long term (current) use of anticoagulants; Z79.899 Other long term (current) drug therapy; Z91.89 Other specified personal risk factors, not elsewhere classified
CPT/HCPCS: 74177; 80047; 80076; 81000; 81001; 83690; 85025; 85610; 86850; 86900; 86901; 87086; 93005; 93041; 96361; 96374; 96375; 99284; J2270; J2405; Q9967

== ENCOUNTER → 2020-08-28 | Outpatient (CLI) | payer OTHER | LOC: M WHC 13:56 | PROVIDERS: ATTEND Obstetrics & Gynecology | DX: N95.0 Postmenopausal bleeding (principal) ==

== ENCOUNTER → 2020-09-02 | Outpatient (REF) | payer OTHER | LOC: M SMT 17:06 | PROVIDERS: ATTEND Nurse Practitioner Family | DX: N13.30 Unspecified hydronephrosis (principal) ==

== ENCOUNTER → 2020-09-08 | Outpatient (CLI) | payer OTHER ==
--- NOTE | 2020-09-08 12:18 | REP ---
INDICATION: R92.8 ABN US OF LT BREAST,POST US GUIDED BIOPSY. Marker clip placement views. The patient is status post ultrasound-guided needle biopsy procedure with marker clip placement. COMPARISON: Comparison mammography 05/13/2020.. TECHNIQUE: Craniocaudal and mediolateral views of the left breast are obtained. FINDINGS: Craniocaudal and mediolateral views demonstrate the needle biopsy marker clip in place in the upper outer quadrant adjacent to some of mammographically stable fibroglandular tissue. IMPRESSION: Marker clip in position in the upper outer quadrant of the left breast. <Electronically signed by Harry Nayak > 09/08/20 [id number]
[2020-09-08 14:56] VITALS: BP 130/74
--- NOTE | 2020-09-08 15:38 | REP ---
INDICATION: R92.8 ABN US OF LT BREAST,US GUIDED BIOPSY. COMPARISON: None. TECHNIQUE: The procedure was performed under the direct supervision of Dr. Nayak. The patient has a history of a 1 cm hypoechoic nodule in the 1 o'clock position of the left breast seen on a previous ultrasound dated 05/18/2020. The risks and benefits of the procedure were explained to the patient and informed consent was obtained. The left breast nodule was localized using ultrasound guidance. The skin was prepped and draped in a sterile fashion. 1% Xylocaine was used as a local anesthetic. Using ultrasound guidance a 14-gauge coaxial needle was inserted and6 core biopsy samples were obtained. A marker clip (HydroMARK shape 3) was placed at the biopsy site The patient tolerated the procedure well and there were no immediate complications. After the appropriate amount of monitored convalescence, the patient was discharged from the department. FINDINGS: None IMPRESSION: Ultrasound-guided left breast biopsy with marker clip placement(HydroMARK shape 3). <Electronically signed by Reji Pineda > 09/08/20 [id number] <Electronically signed by Harry Nayak > 09/08/20 5223
== END ==
LOC: M WHCPRO 07:14
PROVIDERS: ATTEND Surgery
DX: D05.12 Intraductal carcinoma in situ of left breast (principal)

== ENCOUNTER → 2020-09-11 | Outpatient (CLI) | payer OTHER ==
--- NOTE | 2020-09-11 14:13 | REP ---
INDICATION: PMB/N95.0. COMPARISON: CT 08/17/2020 no prior ultrasound. TECHNIQUE: Transabdominal and endovaginal probes utilized. FINDINGS: Body habitus considerations contributed to technically challenging examination limiting the study. Uterus is anteverted and deviated towards the right side of the pelvis. It measures 8.5 x 6.1 x 6.1 cm. It is somewhat heterogeneous in echotexture and on EV probe fibroids are suggested on the left 2.7 x 2.5 x 2.4 cm with a least 2 others measurable. One is 4.3 x 3.8 x 3.1 cm and another 1.6 x 1.4 x 1 cm. A normal endometrium with reliable measurements not clearly defined in this technically limited exam. The right ovary is 2.8 x 2.3 by 1.9 cm. Has a dominant follicle of 2.4 x 1.8 x 1.7 cm with minimal surrounding ovarian tissue. (Cyst defined at 2.5 cm). The left ovary is larger 4.8 x 3.8 x 4.5 cm. There is a complex cyst with some echogenic debris within measuring 4.2 x 3.4 x 4.1 cm. This also has very minimal ovarian tissue around it. Doppler tracings show color flow to both ovaries, no torsion. IMPRESSION: 1. Limited exam for evaluation of the uterus. The endometrium is not clearly defined on transabdominal or endovaginal probe imaging there are multiple a presumed fibroids in the uterus which is heterogeneous. The largest of these is a 4.3 x 3.8 x 3.1 cm and the next 2.7 x 2.5 x 2.4 cm. 2. Left ovary with a 4.2 x 3.4 x 4.1 cm complex cyst with layered debris within it. Thin rim of ovarian tissue seen around it and normal blood flow on color imaging. 3. Right ovary has a dominant follicle 2.4 x 1.7 x 1.8 cm with minimal ovarian tissue around it. Pelvic free fluid. Limited exam. <Electronically signed by Qamar Orta > 09/11/20 [id number]
== END ==
LOC: M WHC 09:34
PROVIDERS: ATTEND Obstetrics & Gynecology
DX: N95.0 Postmenopausal bleeding (principal)

== ENCOUNTER → 2020-09-14 | Outpatient (REF) | payer OTHER | LOC: M SFHCWAGY 10:33 | PROVIDERS: ATTEND Obstetrics & Gynecology | DX: N95.0 Postmenopausal bleeding (principal); N84.0 Polyp of corpus uteri ==

== ENCOUNTER → 2020-09-21 | Outpatient (REF) | payer OTHER ==
[2020-09-21 16:29] LABS: APPEARANCE, URINE MANUAL CLOUDY (CLEAR); COLOR, URINE MANUAL BROWN (YELLOW)
[2020-09-21 16:30] LABS: BILIRUBIN, URINE MANUAL NEGATIVE (NEGATIVE); GLUCOSE, URINE (UA) MANUAL NEGATIVE (NEGATIVE); KETONE, URINE MANUAL NEGATIVE (NEGATIVE); NITRITE, URINE MANUAL NEGATIVE (NEGATIVE); PROTEIN, URINE MANUAL OBSCURED mg/dL (NEGATIVE); UROBILINOGEN, URINE MANUAL NORMAL (NORMAL)
[2020-09-21 16:31] LABS: BLOOD URINE MANUAL POSITIVE (NEGATIVE); LEUKOCYTE ESTERASE, URINE MAN POSITIVE (NEGATIVE)
[2020-09-21 16:34] LABS: BACTERIA, URINE MOD AMOUNT; BASO % 0.5 % (0.0-1.0); EOS # 0.1 10^3/uL (0.0-0.5); EOS % 1.6 % (0.0-3.0); HEMATOCRIT 35.6 % (36.0-47.0); HEMOGLOBIN 11.2 g/dl (12.0-15.5); LYMPH # 2.5 10^3/uL (1.5-5.0); MEAN CORPUSCULAR HEMOGLOBIN 27.1 pg (27.0-33.0); MEAN CORPUSCULAR HGB CONC 31.5 g/dl (32.0-36.5); MEAN CORPUSCULAR VOLUME 86.2 fl (80.0-96.0); MONO # 0.7 10^3/uL (0.0-0.8); MONO % 7.9 % (2.0-8.0); NEUTROPHILS # 5.3 10^3/uL (1.5-8.5); NEUTROPHILS % 60.4 % (36.0-66.0); PLATELET COUNT, AUTOMATED 332 10^3/uL (150-450); RBC, URINE TNTC /hpf (0-3); RED BLOOD COUNT 4.13 10^6/uL (4.00-5.40); SQUAMOUS EPITHELIAL CELL URINE SMALL AMOUNT /hpf (SMALL AMT); WHITE BLOOD COUNT 8.7 10^3/uL (4.0-10.0)
[2020-09-21 16:35] LABS: HYALINE CAST, URINE NONE SEEN /lpf (0-1)
[2020-09-21 17:08] LABS: ALBUMIN 3.3 GM/DL (3.2-5.2); ALT/SGPT 29 U/L (12-78); BILIRUBIN,TOTAL 0.2 MG/DL (0.2-1.0); BLOOD UREA NITROGEN 16 MG/DL (7-18); CALCIUM LEVEL 9.1 MG/DL (8.5-10.1); CARBON DIOXIDE LEVEL 29 MEQ/L (21-32); CHLORIDE LEVEL 106 MEQ/L (98-107); CREATININE FOR GFR 0.57 MG/DL (0.55-1.30); GLOMERULAR FILTRATION RATE > 60.0 (>51); GLUCOSE, FASTING 113 MG/DL (70-100); POTASSIUM SERUM 4.2 MEQ/L (3.5-5.1); SODIUM LEVEL 141 MEQ/L (136-145); TOTAL PROTEIN 6.6 GM/DL (6.4-8.2)
== END ==
LOC: M SFHCCLAY 12:22
PROVIDERS: ATTEND Family Medicine
DX: D05.10 Intraductal carcinoma in situ of unspecified breast (principal); Z93.1 Gastrostomy status; K31.5 Obstruction of duodenum

== ENCOUNTER → 2020-09-25 | Outpatient (CLI) | payer OTHER ==
[~2020-09-25] MED LIST changes: +ISOVUE-370 76% 100ML VIAL As Ordered ONE
--- NOTE | 2020-09-25 08:51 | REP ---
INDICATION: HYDRONEPHROSIS. COMPARISON: 08/17/2020 TECHNIQUE: Axial precontrast, contrast-enhanced and delayed images from the lung bases to the pubic symphysis using 100 cc Isovue 370 intravenous contrast material. Coronal and sagittal reformations obtained. This CT examination was performed using the following dose reduction techniques: Automated exposure control, adjustment of mA and/or kv according to the patient's size, and the use of iterative reconstruction technique. FINDINGS: Right kidney demonstrates moderate hydronephrosis similar to prior examination with a right ureteral stent extending into the bladder and no subsequent hydroureter identified. Left kidney appears normal. Liver demonstrates stable hemangioma in the posterior segment right lobe along with intrahepatic and extrahepatic biliary ductal dilatation to the level of the pancreatic head without obvious obstructing calculus. The somewhat complex collection along the posterior aspect of the uncinate process and inseparable from the transverse portion of the duodenum is again identified but considerably improved and decreased in size currently measuring roughly 4.5 x 2.2 cm maximal diameter (previously measuring greater than 6.1 x 3.7 cm). Patient is noted to be status post cholecystectomy and gastrojejunostomy tube placement in stable position. Spleen, pancreatic body/tail, bilateral adrenal glands and left kidney are normal. The enteric system is without obstruction. There is a focal area of fat stranding in the left lower quadrant adjacent to the sigmoid colon which may represent epiploic appendagitis (series 301 images 100-110). Pelvis demonstrates relatively normal bladder and suspected myomatous changes to the uterus 4.3 cm left adnexal lesion is unchanged and may represent pedunculated fibroid or adnexal mass. No ascites. No retroperitoneal adenopathy. No free air. Abdominal aorta without aneurysm or dissection. Osseous structures intact and without acute abnormality. IMPRESSION: 1. Stable moderate right hydronephrosis with right ureteral stent in satisfactory position. 2. Complex abscess/phlegmon inseparable from the transverse duodenum and pancreatic uncinate process is decreased in size from prior examination. 3. Focal area of fat stranding along the anti mesenteric portion of the proximal sigmoid colon may reflect epiploic appendagitis or area of fatty infarction. Correlation with physical examination is recommended. 4. Myomatous uterus and possible left adnexal mass versus pedunculated fibroid. Findings are similar to prior examination. 5. Further nonacute findings as described above. No ascites. No free air. No obvious adenopathy. <Electronically signed by Umang Henderson > 09/25/20 0854
== END ==
LOC: M RAD 07:50
PROVIDERS: ATTEND Urology
DX: N13.30 Unspecified hydronephrosis (principal); Z90.49 Acquired absence of other specified parts of digestive tract; Z96.0 Presence of urogenital implants
CPT/HCPCS: 74178; Q9967

== ENCOUNTER → 2020-10-05 | Outpatient (REF) | payer OTHER ==
[~2020-10-05] MED LIST changes: -ISOVUE-370 76% 100ML VIAL As Ordered ONE
[2020-10-05 16:10] LABS: MEAN CORPUSCULAR HEMOGLOBIN 26.5 pg (27.0-33.0); MEAN CORPUSCULAR VOLUME 88.3 fl (80.0-96.0); PLATELET COUNT, AUTOMATED 418 10^3/uL (150-450); RED BLOOD COUNT 4.53 10^6/uL (4.00-5.40); WHITE BLOOD COUNT 8.9 10^3/uL (4.0-10.0)
[2020-10-05 16:15] LABS: APPEARANCE, URINE MANUAL CLOUDY (CLEAR); BILIRUBIN, URINE MANUAL NEGATIVE (NEGATIVE); COLOR, URINE MANUAL RED (YELLOW); GLUCOSE, URINE (UA) MANUAL NEGATIVE (NEGATIVE); KETONE, URINE MANUAL NEGATIVE (NEGATIVE); PROTEIN, URINE MANUAL 3+ mg/dL (NEGATIVE); UROBILINOGEN, URINE MANUAL NORMAL (NORMAL)
[2020-10-05 16:16] LABS: AMORPHOUS SEDIMENT, URINE SMALL AMOUNT (NEGATIVE); BACTERIA, URINE MOD AMOUNT; BLOOD URINE MANUAL POSITIVE (NEGATIVE); CALCIUM OXALATE CRYSTALS,URINE SMALL AMOUNT /hpf; LEUKOCYTE ESTERASE, URINE MAN POSITIVE (NEGATIVE); MUCUS, URINE SMALL AMOUNT (NEGATIVE); NITRITE, URINE MANUAL NEGATIVE (NEGATIVE); RBC, URINE TNTC /hpf (0-3); SQUAMOUS EPITHELIAL CELL URINE SMALL AMOUNT /hpf (SMALL AMT); TRANSITIONAL EPI CELLS, URINE SMALL AMOUNT /hpf; WBC, URINE 15-20 /hpf (0-3)
[2020-10-05 16:38] LABS: BLOOD UREA NITROGEN 16 MG/DL (7-18); CALCIUM LEVEL 9.7 MG/DL (8.5-10.1); CARBON DIOXIDE LEVEL 33 MEQ/L (21-32); CHLORIDE LEVEL 106 MEQ/L (98-107); CREATININE FOR GFR 0.68 MG/DL (0.55-1.30); GLOMERULAR FILTRATION RATE > 60.0 (>51); GLUCOSE, FASTING 90 MG/DL (70-100); POTASSIUM SERUM 4.6 MEQ/L (3.5-5.1); SODIUM LEVEL 141 MEQ/L (136-145)
== END ==
LOC: M SFHCCLAY 10:49
PROVIDERS: ATTEND Urology
DX: N13.30 Unspecified hydronephrosis (principal)

== ENCOUNTER → 2020-10-09 | Outpatient (CLI) | payer OTHER ==
--- NOTE | 2020-10-09 17:51 | REP ---
INDICATION: UNSPECIFIED HYDRONEPHROSIS COMPARISON: 07/17/2020 TECHNIQUE: PA and lateral. FINDINGS: The mediastinum and cardiac silhouette are normal. The lung castro are clear and without acute consolidation, effusion, or pneumothorax. The skeletal structures are intact and normal. IMPRESSION: No acute cardiopulmonary process. <Electronically signed by Umang Henderson > 10/09/20 0900
--- NOTE | 2020-10-10 04:33 | ECGEPIP ---
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
== END ==
LOC: M EKG 17:03
PROVIDERS: ATTEND Urology
DX: N13.30 Unspecified hydronephrosis (principal)

== ENCOUNTER → 2020-10-21 | Outpatient (CLI) | payer OTHER ==
[~2020-10-21] MED LIST changes: +ELIQ5TAB PO; +FAMO20TA PO; +FENO48TA7 PO; +MAGN400C PO; +OXYC10TA12 PO
== END ==
LOC: M LABSMTC 10:01
PROVIDERS: ATTEND Anesthesiology
DX: Z01.812 Encounter for preprocedural laboratory examination (principal); Z20.822 Contact with and (suspected) exposure to COVID-19

== ENCOUNTER 2020-10-26 09:37 | Day surgery (SDC) | payer OTHER ==
[~2020-10-26] VITALS: Ht 167.6 cm; Wt 97.5 kg
[~2020-10-26 09:37] MED LIST changes: +LR 1,000 ML IV ONE; +ceFAZolin SOD 2 GM in IV 1 EA IV ONE
[2020-10-26] MEDS ORDERED: MIDAZOLAM INJ 2MG/2ML VIAL (J2250 PER 1MG) As Ordered ONE (09:50)
[2020-10-26] MEDS ORDERED: propofoL 200 MG/20 ML VIAL As Ordered ONE ×2 (09:50→11:04)
[2020-10-26] MEDS ORDERED: dexameTHASONE 4 MG/ML 1ML VIAL (J1100 PER 1MG) As Ordered ONE (09:50)
[2020-10-26] MEDS ORDERED: ONDANSETRON 4MG/2ML VIAL As Ordered ONE (09:50)
[2020-10-26] MEDS ORDERED: fentaNYL 100 MCG/2 ML INJECTION (J3010) As Ordered ONE (09:50)
[2020-10-26] MEDS ORDERED: LIDOCAINE 2% 100MG/5ML SDV (FOR ANES.) As Ordered ONE (09:50)
[2020-10-26] MEDS ORDERED: LIDOCAINE 2% 5ML JELLY UROJET As Ordered ONE (10:19)
[2020-10-26] MEDS ORDERED: CONRAY-60 60% 50ML VIAL (Q9961) As Ordered ONE (10:20)
--- NOTE | 2020-10-26 11:17 | ROOPDOC ---
[facility] Report Of Operation Report of Operation DATE OF PROCEDURE: 10/26/20 PREPROCEDURE DIAGNOSES: Right ureteral extrinsic compression POSTPROCEDURE DIAGNOSES: Same PROCEDURE: Right ureteral stent change SURGEON: Yong Merrill MD BLUEPRINT PROCESSOR: None ANESTHESIA: Gen. ESTIMATED BLOOD LOSS: Approximately 0 mL. COMPLICATIONS: None REMARKS: Ureteral stent was relatively clean PROCEDURE NOTE: Patient was brought to the operating room for stent replacement because of extrinsic ureteral compression DESCRIPTION OF PROCEDURE: The patient was placed on the table in the supine position, given general anesthesia, placed in lithotomy position, prepped with Betadine paint, draped in aseptic manner and timeout was performed. A 22 Dutch cystoscope was inserted into the meatus and advanced under direct vision of a 30 lens to the bladder. In the bladder, the patient was seen to have a right ureteral stent that was only slightly corroded but causing some mucosal irritation. It was grasped in a grasping forceps and brought out through the urethral meatus where a wire guide was able to be passed through the lumen up to the renal pelvis. The stent was removed leaving the wire in place. A new 6 Dutch double-J stent was then passed over this wire and curled well in the renal pelvis and in the bladder when the wire was removed. The bladder was then drained, cystoscope was removed and the patient was awakened and sent to recovery room stable condition having tolerated procedure well. She will be seen back in the clinic for evaluation of one to remove the stent entirely. YONG MERRILL MD October 26, 2020 11:17
[2020-10-26 11:55] VITALS: BP 126/59
[2020-10-26] MEDS ORDERED: LR 1,000 ML IV SCH (11:55)
[2020-10-26] MEDS ORDERED: METOCLOPRAMIDE INJ 10MG/2ML VIAL (J2765 PER 1) IV PRN (11:55)
[2020-10-26] MEDS ORDERED: ONDANSETRON 4MG/2ML VIAL IV PRN (11:55)
[2020-10-26] MEDS ORDERED: PERCOCET 5MG/325MG TAB PO PRN (11:55)
== END 2020-10-26 12:05 | disposition home or self-care (01) ==
LOC: M SDC 09:37
PROVIDERS: ATTEND Urology
DX: N13.2 Hydronephrosis with renal and ureteral calculous obstruction (principal); K21.9 Gastro-esophageal reflux disease without esophagitis; K44.9 Diaphragmatic hernia without obstruction or gangrene; K57.92 Diverticulitis of intestine, part unspecified, without perforation or abscess without bleeding; F32.9 Major depressive disorder, single episode, unspecified; Z85.3 Personal history of malignant neoplasm of breast; Z79.01 Long term (current) use of anticoagulants; Z79.899 Other long term (current) drug therapy
CPT/HCPCS: 52332; 74420; C1769; C2617; J0690; J1100; J2250; J2405; J3010; Q9961

== ENCOUNTER → 2020-10-29 | Outpatient (CLI) | payer OTHER ==
[~2020-10-29] MED LIST changes: -LR 1,000 ML IV ONE; -ceFAZolin SOD 2 GM in IV 1 EA IV ONE
== END ==
LOC: M LABSMTC 09:54
PROVIDERS: ATTEND Anesthesiology
DX: Z01.812 Encounter for preprocedural laboratory examination (principal); Z20.822 Contact with and (suspected) exposure to COVID-19

== ENCOUNTER → 2020-11-03 | Day surgery (SDC) | payer OTHER ==
[~2020-11-03] VITALS: Ht 167.6 cm; Wt 96.6 kg
[~2020-11-03] MED LIST changes: +ACETAMINOPHEN 1000MG 100ML IV BTL (OFIRMEV) (J0131 PER 10MG) As Ordered ONE; +BUPIVACAINE HCL 0.25% 30ML VIAL As Ordered ONE; +HEPARIN SOD (PORCINE) 5000UNITS/ML 1ML VIAL/SYRINGE SQ ONE; +HYDROmorphone HCL 2 MG/ML 1ML VIAL (J1170) As Ordered ONE; +LIDOCAINE 1% MDV 20ML VIAL SQ PRN; +LIDOCAINE 1% SDV 30ML VIAL As Ordered ONE; +LIDOCAINE 2% 100MG/5ML SDV (FOR ANES.) As Ordered ONE; +LR 1,000 ML IV ONE; +LR 1,000 ML IV SCH; +METHYLENE BLUE 0.5% (5MG/ML) 10 ML AMP (PROVAYBLUE) As Ordered ONE; +MIDAZOLAM INJ 2MG/2ML VIAL (J2250 PER 1MG) As Ordered ONE; +ONDANSETRON 4MG/2ML VIAL As Ordered ONE; +ONDANSETRON 4MG/2ML VIAL IV PRN; +ROXI1TAB2 PO; +ceFAZolin SOD 2 GM in IV 1 EA IV ONE; +dexameTHASONE 4 MG/ML 1ML VIAL (J1100 PER 1MG) As Ordered ONE; +ePHEDrine SULFATE 25 MG/5 ML(5MG/ML) SYRINGE As Ordered ONE; +fentaNYL 100 MCG/2 ML INJECTION (J3010) As Ordered ONE; +fentaNYL 100 MCG/2 ML INJECTION (J3010) IV PRN; +oxyCODONE 5MG TAB PO PRN; +propofoL 200 MG/20 ML VIAL As Ordered ONE
[2020-11-03 11:43] VITALS: BP 136/71
--- NOTE | 2020-11-03 15:30 | REP ---
INDICATION: LEFT BREAST LUMPECTOMY. COMPARISON: Comparison left breast mammography September 08, 2020.. TECHNIQUE: Eight views including photograph spirits FINDINGS: Initial specimen radiograph demonstrates a Kopan's wire localizer a adjacent to a needle biopsy marker clip within the specimen. The specimen also contains a macro calcification. There are several microcalcifications in the specimen. An orthogonal view of this same specimen is presented with similar findings. A loop A specimen labeled left inferior is radiographed. This contains 3 of 4 microcalcifications. A left breast specimen labeled lateral is radiograph. This specimen radiograph shows no remarkable features. IMPRESSION: Specimen radiography as above. <Electronically signed by Harry Nayak > 11/03/20 [id number]
--- NOTE | 2020-11-04 08:18 | REP ---
INDICATION: NEEDLE PLACEMENT - LEFT. COMPARISON: None. TECHNIQUE: Sonographic guidance. FINDINGS: Ultrasound guidance is provided to Dr. Anna who performed a ultrasound-guided wire localization procedure. IMPRESSION: Sonographic guidance. Procedural imaging. <Electronically signed by Harry Nayak > 11/04/20 0845
--- NOTE | 2020-11-07 21:07 | ROOPDOC ---
[facility] Report Of Operation Report of Operation DATE OF PROCEDURE: 11/03/20 PREPROCEDURE DIAGNOSES: Left breast cancer POSTPROCEDURE DIAGNOSES: same PROCEDURE: left breast lumpectomy with intraop wire placement SURGEON: Dr Serina Collado ANESTHESIA: general ESTIMATED BLOOD LOSS: Approximately 75 mL. COMPLICATIONS: none REMARKS: calcifications seen in the lumpectomy specimen and in the inferior margin PROCEDURE NOTE: INDICATIONS: Ms. Calvin is a 60-year-old woman who was found to have a suspicious lesion on screening left breast mammogram. This was evaluated through the biopsy done with radiology in August. 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 Patient has problems with pancreatitis which required admission to ICU and her breast intervention was delayed. Patient also had problem with confusion which was evaluated by Neurology prior to surgery. After discussing surgical options, patient opted for breast conservative surgery. Since we did not identify invasive disease, no sentinel lymph node biopsy is needed at this time. She was medically cleared for surgery by her primary care doctor. Risks and possible complications of surgical procedure including bleeding, infection and injury to surrounding structures were explained to the patient and she wished to proceed. Consent was signed. My initials were placed on the operative site. Subcutaneous injection of 5000 units of heparin was done in Preop. The injection of radioactive tracer was done in radiology department preoperatively. Lymphoscintigraphy imaging was reviewed in preop. DETAILS: Patient was taken to the operating room and placed on the operating room table. A sign in was called stating patients name, date of and the procedure to be done. Preoperative antibiotics were infused. Smooth induction of general anesthesia was done. Patients hands were extended on arm rests. Care was taken not to over extend the arms. Pillow was placed under the knees and a foam was placed under the heels. Sequential compression devices were placed and assured to function correctly. Procedure was started with left breast intraop wire localization. Appropriate time out was done and patients name, date of , and the procedure to be done were confirmed. Left breast was cleaned by me. Intraoperative ultrasound was used to confirm location of the Hydromark clip. Location of the clip was marked on the skin as well. 21 G KoLX Venturess Breast Lesion Localization Needle was used to place 25 cm wire through the clip. The end of the wire was passed a centimeter deep. The images were captured confirming adequate placement of the localizing wire. Work Order Sorting Clerk assisted with the wire placement. Next, patients left breast and axilla were prepped and draped in the usual fashion. Care was taken not to displace the wire. Appropriate time out was done again prior second part of the procedure. Patients name, date of , and the procedure to be done were confirmed. Local anesthetic using 1% lidocaine and 0.25 % Marcaine 50/50 mix was injected at the site of planned periareolar incision. The incision was made with the scalpel. Subcutaneous skin flaps were raised and the guide wire was carefully pulled into the wound. Dissection was carries along the wire until the previously marked on the skin area of target lesion location was encountered. At this point, wider excision of the tissue surrounding the wire was done. The Hydromark clip was identified in the tissue with intraoperative hockey stick ultrasound probe. The end of the wire was identified with palpation. The lumpectomy specimen was carefully removed from the breast keeping its proper orientation and moved to the back table where margins were marked with the surgical inking kit following the standard colors recommendations. Excised lumpectomy specimen measured 5.7 x 4.5 x 2 cm. Specimen was then placed on the grid and placed in [employer] Specimen Imaging System. The image revealed the wire, calcifications and the Hydromark in the specimen. The specimen was labeled with patients name and left lumpectomy and sent to pathology. Due to the fact that the clip was noted close to the inferior and lateral margin, the decision was made to excise those additional margins. Inferior margin was excised ad measured 5.5x 3 x 1.2 cm. The true/ new margin was marked with the black ink. Next it was placed on the grid and placed in [employer] Specimen Imaging System. The image revealed some calcifications. Specimen was labeled with patient information and passed to pathology. Next, lateral margin was taken. It measured 4 x 3.5 x 0.8 cm. The true/ new margin was marked with the black ink. Next it was placed on the grid and placed in [employer] Specimen Imaging System. The image did not show any calcifications. Specimen was labeled with patient information and passed to pathology. At this time, lumpectomy bed was thoroughly irrigated. Adequate hemostasis was assured. Additional local anesthetic was injected into surrounding tissues. Clips were placed to tyson the cavity. space was approximated with 2-0 Vicryl. The dermis was closed with 3-0 Vicryl and skin was closed with 4-0 Monocryl. Surgical glue was placed over the incision. Patient emerged from the anesthesia without any problems. Fluffs were placed over the operative site and patients chest was wrapped snuggly in the NIRU wrap. Sponge and instrument counts were done and were correct. Patient tolerated procedure well and was taken to recovery unit in stable condition. SONIA COLLADO DO November 07, 2020 21:07
== END | disposition home or self-care (01) ==
LOC: M SDC 06:18
PROVIDERS: ATTEND Surgery
DX: C50.912 Malignant neoplasm of unspecified site of left female breast (principal); E78.5 Hyperlipidemia, unspecified; K21.9 Gastro-esophageal reflux disease without esophagitis; K57.92 Diverticulitis of intestine, part unspecified, without perforation or abscess without bleeding; K44.9 Diaphragmatic hernia without obstruction or gangrene; Z79.899 Other long term (current) drug therapy; Z79.01 Long term (current) use of anticoagulants; F32.9 Major depressive disorder, single episode, unspecified
CPT/HCPCS: 19125; 36415; 76942; 81025; 86850; 86900; 86901; 88305; 88307; 88341; 88342; J0131; J0690; J1100; J1170; J1644; J2250; J2405; J3010; Q9968

== ENCOUNTER 2020-11-10 07:35 | Day surgery (SDC) | payer OTHER ==
[~2020-11-10] VITALS: Ht 167.6 cm; Wt 96.1 kg
[~2020-11-10 07:35] MED LIST changes: -ACETAMINOPHEN 1000MG 100ML IV BTL (OFIRMEV) (J0131 PER 10MG) As Ordered ONE; -HYDROmorphone HCL 2 MG/ML 1ML VIAL (J1170) As Ordered ONE; -LIDOCAINE 1% MDV 20ML VIAL SQ PRN; -LIDOCAINE 2% 100MG/5ML SDV (FOR ANES.) As Ordered ONE; -LR 1,000 ML IV ONE; -LR 1,000 ML IV SCH; -METHYLENE BLUE 0.5% (5MG/ML) 10 ML AMP (PROVAYBLUE) As Ordered ONE; -MIDAZOLAM INJ 2MG/2ML VIAL (J2250 PER 1MG) As Ordered ONE; +NS 1,000 ML IV SCH; -ONDANSETRON 4MG/2ML VIAL As Ordered ONE; -ONDANSETRON 4MG/2ML VIAL IV PRN; -dexameTHASONE 4 MG/ML 1ML VIAL (J1100 PER 1MG) As Ordered ONE; -ePHEDrine SULFATE 25 MG/5 ML(5MG/ML) SYRINGE As Ordered ONE; -fentaNYL 100 MCG/2 ML INJECTION (J3010) As Ordered ONE; -fentaNYL 100 MCG/2 ML INJECTION (J3010) IV PRN; -oxyCODONE 5MG TAB PO PRN; -propofoL 200 MG/20 ML VIAL As Ordered ONE
[2020-11-10] MEDS ORDERED: LIDOCAINE 2% 100MG/5ML SDV (FOR ANES.) As Ordered ONE (11:02)
[2020-11-10] MEDS ORDERED: fentaNYL 100 MCG/2 ML INJECTION (J3010) As Ordered ONE ×3 (11:02→14:47)
[2020-11-10] MEDS ORDERED: propofoL 200 MG/20 ML VIAL As Ordered ONE ×2 (11:02→12:09)
[2020-11-10] MEDS ORDERED: MIDAZOLAM INJ 2MG/2ML VIAL (J2250 PER 1MG) As Ordered ONE (11:02)
[2020-11-10] MEDS ORDERED: ONDANSETRON 4MG/2ML VIAL As Ordered ONE ×2 (11:02→14:47)
[2020-11-10] MEDS ORDERED: dexameTHASONE 4 MG/ML 1ML VIAL (J1100 PER 1MG) As Ordered ONE (11:02)
[2020-11-10] MEDS ORDERED: ACETAMINOPHEN 1000MG 100ML IV BTL (OFIRMEV) (J0131 PER 10MG) As Ordered ONE (11:02)
[2020-11-10] MEDS ORDERED: ePHEDrine SULFATE 25 MG/5 ML(5MG/ML) SYRINGE As Ordered ONE (12:20)
[2020-11-10] MEDS ORDERED: METOCLOPRAMIDE INJ 10MG/2ML VIAL (J2765 PER 1) IV PRN (15:05)
[2020-11-10] MEDS ORDERED: ONDANSETRON 4MG/2ML VIAL IV PRN (15:05)
[2020-11-10] MEDS ORDERED: LR 1,000 ML IV SCH (15:05)
[2020-11-10] MEDS: fentaNYL 100 MCG/2 ML INJECTION (J3010) IV PRN ×4 (15:10→15:32)
--- NOTE | 2020-11-10 15:17 | REP ---
INDICATION: LEFT BREAST BIOPSY. COMPARISON: Mammogram 09/08/2020. TECHNIQUE: Three surgical specimens are radiographed. FINDINGS: A specimen labeled inferior demonstrates a single tiny calcification. A specimen labeled medial contains 3 metallic clips. A specimen labeled lateral contains a metallic clip. IMPRESSION: Three specimen radiographs as above. RECOMMENDATION: None. <Electronically signed by Gallo Guzman > 11/10/20 1430
[2020-11-10] MEDS: PERCOCET 5MG/325MG TAB PO PRN ×2 (15:18→15:53)
[2020-11-10 16:00] VITALS: BP 136/60
--- NOTE | 2020-11-11 13:14 | REP ---
INDICATION: left breast. COMPARISON: None. TECHNIQUE: The procedure was performed under the direct supervision of Dr. Guzman. The images were reviewed with Dr. Guzman. Using topical anesthetic and sterile technique 1.037 mCi of technetium 99 filtered sulfur colloid was injected subdermally in 8 fractionated periareolar injections. Images obtained 1 hour after injection show an oval area of uptake in the upper left breast. FINDINGS: None IMPRESSION: Left breast lymphoscintigraphy. There is an oval area of uptake in the upper left breast. <Electronically signed by Reji Pineda > 11/10/20 5509 <Electronically signed by Gallo Guzman > 11/11/20 1310
--- NOTE | 2020-11-17 21:02 | ROOPDOC ---
[facility] Report Of Operation Report of Operation DATE OF PROCEDURE: 11/10/20 PREPROCEDURE DIAGNOSES: Left breast cancer POSTPROCEDURE DIAGNOSES: Left breast cancer PROCEDURE: Left breast margin reexcision - medial, lateral, inferior, and left sentinel lymph node biopsy SURGEON: Dr. Sonia Collado ANESTHESIA: general ESTIMATED BLOOD LOSS: Approximately 50 mL. COMPLICATIONS: none REMARKS: 4 previously placed clips marking margins were found and excised DESCRIPTION OF PROCEDURE: INDICATIONS: Ms. Calvin is a 60-year-old woman who was found to have a suspicious lesion on screening left breast mammogram. This was evaluated through the biopsy done with radiology in August 2020. 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 Patient has problems with pancreatitis which required admission to ICU and her breast intervention was delayed. Patient also had problem with confusion which was evaluated by Neurology prior to surgery. After discussing surgical options, patient opted for breast conservative surgery. Since we did not identify invasive disease, no sentinel lymph node biopsy was needed at index surgery. She was medically cleared for index surgery by her primary care doctor. Patient underwent Left breast excisional biopsy with excision of additional inferior and lateral margin on 11/03/20. She was found to have invasive cancer, 8mm in addition to extensive DCIS. Main specimen contained about 2 cm of DCIS. The inferior margin also had another focus of DCIS measuring 2 cm. Inferior, medial and lateral margins were close. I explained that the mentioned margins need to be excised. In addition, her lymph nodes also need to be evaluated with sentinel lymph node biopsy. Risks and possible complications of surgical procedure including bleeding, infection and injury to surrounding structures were explained to the patient and she wished to proceed. Consent was signed. My initials were placed on the operative site. Subcutaneous injection of 5000 units of heparin was done in Preop. The injection of radioactive tracer was done in radiology department preoperatively. Lymphoscintigraphy imaging was reviewed in preop. DETAILS: Patient was taken to the operating room and placed on the operating room table. A sign in was called stating patients name, date of and the procedure to be done. Preoperative antibiotics were infused. Smooth induction of general anesthesia was done. Patients hands were extended on arm rests. Care was taken not to over extend the arms. Pillow was placed under the knees and a foam was placed under the heels. Sequential compression devices were placed and assured to function correctly. The procedure was started with sentinel lymph node biopsy. Neoprobe was used to locate area of maximum intensity of the signal. Local anesthetic using 1% lidocaine and 0.25 % Marcaine 50/50 mix was injected. An incision was made with scalpel number 15 at the inferior aspect of axillary hair line in the left axilla where the maximum signal was identified. The sharp and blunt dissection was continued through the subcutaneous adipose tissue. Clavipectoral fascia was opened. Neoprobe was used to guide the dissection. First sentinel lymph node was identified and excised. The ex-vivo 10 second count was 3120. Second sentinel lymph node was identified and excised as well. The ex-vivo 10 second count was 539. The specimens were labeled with patients name and sent to pathology. No additional lymph nodes with high radioactive signal were identified. The 10 second count of the background was 7. Adequate hemostasis was assured. Additional local anesthetic was injected into surrounding tissues. Wound was irrigated. Clavipectoral fascia was closed with 3-0 Vicryl interrupted suture. Dermal layer was closed at the end of the case with 3-0 Monocryl and skin was closed with 4-0 Monocryl. Surgical glue was applied to the incision at the end of the procedure. Next, our attention was turned toward the left breast. Previous periareolar incision was opened. This was done with scalpel. Seroma cavity was found and evacuated. Previously placed suture to close the lumpectomy cavity were removed. Previously places clips marking the inferior, medial, posterior and lateral margins were identified. Allis clamps were used to grab the each of the medial, lateral and inferior margins and a sharp dissection of tissue was done along entire aspect of the lum pectomy cavity. Specimens were carefully moved to the back table and marked with the surgical ink the true/ new margin, furthest away from the lumpectomy cavity. Specimen was then placed on the grid and placed in [employer]imen [facility] System. Total of 4 margin marking clips were identified. The specimen was labeled with patients name and right lateral margin, right medial margin, right inferior margin respectively. New 4 clips were placed (lateral, medial, inferior and posterior) were placed at the appropriate lumpectomy margin. Next, the wound was irrigated thoroughly. Since patient is on Eliquis, even though she held it appropriately, the lumpectomy cavity had persistent oozing. An extensive effort was made to achieve hemostasis. Due to persistent ooze, a decision was made to use FloSeal to improve the hemostasis. At this time, hemostasis was achieved. Additional local anesthetic was injected into surrounding tissues. space was approximated with 2-0 Vicryl. The dermis was closed with 3-0 Vicryl and skin was closed with 4-0 Monocryl. Surgical glue was placed over the incision. Patient emerged from the anesthesia without any problems. Fluffs were placed over the operative site and patients chest was wrapped snuggly in the NIRU wrap. Sponge and instrument counts were done and were correct. Patient tolerated procedure well and was taken to recovery unit in stable condition. SONIA COLLADO DO Nov 17, 2020 21:02
== END 2020-11-10 16:30 | disposition home or self-care (01) ==
LOC: M SDC 07:35
PROVIDERS: ATTEND Surgery
DX: C50.912 Malignant neoplasm of unspecified site of left female breast (principal); C77.3 Secondary and unspecified malignant neoplasm of axilla and upper limb lymph nodes; E78.49 Other hyperlipidemia; E66.9 Obesity, unspecified; Z79.899 Other long term (current) drug therapy
CPT/HCPCS: 19120; 38525; 78195; 88305; 88307; 88342; A9541; J0131; J0690; J1100; J1644; J2250; J2405; J3010; U0002

== ENCOUNTER → 2020-11-16 | Outpatient (CLI) | payer OTHER ==
[~2020-11-16] MED LIST changes: -BUPIVACAINE HCL 0.25% 30ML VIAL As Ordered ONE; -HEPARIN SOD (PORCINE) 5000UNITS/ML 1ML VIAL/SYRINGE SQ ONE; -LIDOCAINE 1% SDV 30ML VIAL As Ordered ONE; -NS 1,000 ML IV SCH; -ceFAZolin SOD 2 GM in IV 1 EA IV ONE
--- NOTE | 2020-11-16 21:41 | REP ---
INDICATION: COUGH COMPARISON: 10/09/2020 TECHNIQUE: PA and lateral. FINDINGS: The mediastinum and cardiac silhouette are normal. The lung castro are clear and without acute consolidation, effusion, or pneumothorax. The skeletal structures are intact and normal. IMPRESSION: No acute cardiopulmonary process. <Electronically signed by Umang Henderson > 11/16/20 1152
--- NOTE | 2020-11-16 21:41 | REP ---
INDICATION: COUGH COMPARISON: None. TECHNIQUE: AP, lateral, bilateral oblique and sunrise views. FINDINGS: The osseous structures and joint spaces are intact and normal. There is no evidence for acute fracture or dislocation. No joint effusion is appreciated. Surrounding soft tissues are unremarkable. No subcutaneous emphysema or radiodense foreign body. IMPRESSION: Normal age-appropriate examination. No acute fracture or dislocation. <Electronically signed by Umang Henderson > 11/16/20 7910
== END ==
LOC: M RAD 16:48
PROVIDERS: ATTEND Physician Assistant
DX: R05 Cough (principal); S89.91XA Unspecified injury of right lower leg, initial encounter; X58.XXXA Exposure to other specified factors, initial encounter; Y92.9 Unspecified place or not applicable

== ENCOUNTER → 2020-11-16 | Outpatient (REF) | payer OTHER ==
[2020-11-16 16:30] LABS: BASO # 0.1 10^3/uL (0.0-0.2); BASO % 0.5 % (0.0-1.0); EOS # 0.3 10^3/uL (0.0-0.5); EOS % 3.1 % (0.0-3.0); HEMATOCRIT 38.1 % (36.0-47.0); HEMOGLOBIN 11.8 g/dl (12.0-15.5); LYMPH # 2.8 10^3/uL (1.5-5.0); LYMPH % 26.4 % (24.0-44.0); MEAN CORPUSCULAR HEMOGLOBIN 26.3 pg (27.0-33.0); MONO # 1.2 10^3/uL (0.0-0.8); MONO % 11.2 % (2.0-8.0); NEUTROPHILS # 6.3 10^3/uL (1.5-8.5); NEUTROPHILS % 58.2 % (36.0-66.0); PLATELET COUNT, AUTOMATED 410 10^3/uL (150-450); RED BLOOD COUNT 4.48 10^6/uL (4.00-5.40); WHITE BLOOD COUNT 10.7 10^3/uL (4.0-10.0)
[2020-11-16 17:16] LABS: ALBUMIN 3.3 GM/DL (3.2-5.2); ALT/SGPT 12 U/L (12-78); BILIRUBIN,TOTAL 0.1 MG/DL (0.2-1.0); BLOOD UREA NITROGEN 17 MG/DL (7-18); CALCIUM LEVEL 9.2 MG/DL (8.5-10.1); CARBON DIOXIDE LEVEL 25 MEQ/L (21-32); CHLORIDE LEVEL 106 MEQ/L (98-107); CHOLESTEROL LEVEL 269 MG/DL (<200); CHOLESTEROL RISK RATIO 4.269 (<5); CREATININE FOR GFR 0.99 MG/DL (0.55-1.30); GLOMERULAR FILTRATION RATE > 60.0 (>51); GLUCOSE, FASTING 94 MG/DL (70-100); HDL CHOLESTEROL 63 MG/DL (>40); LDL CHOLESTEROL 171 MG/DL (<100); NON-HDL-C 206 MG/DL; POTASSIUM SERUM 4.3 MEQ/L (3.5-5.1); SODIUM LEVEL 140 MEQ/L (136-145); TOTAL PROTEIN 6.9 GM/DL (6.4-8.2); TRIGLYCERIDES LEVEL 176 MG/DL (<150)
== END ==
LOC: M SFHCCLAY 13:03
PROVIDERS: ATTEND Physician Assistant
DX: M54.42 Lumbago with sciatica, left side (principal); K85.90 Acute pancreatitis without necrosis or infection, unspecified; E78.2 Mixed hyperlipidemia; R05 Cough

== ENCOUNTER → 2020-11-20 | Outpatient (CLI) | payer OTHER ==
[~2020-11-20] MED LIST changes: +PROHANCE 279.3MG/ML 15ML VIAL As Ordered ONE; +PROHANCE 279.3MG/ML 5ML VIAL As Ordered ONE
--- NOTE | 2020-11-20 17:59 | REP ---
INDICATION: INVASIVE DUCTAL CARCINOMA LT BREAST/LABS 4 DAUGHTER 1ST. COMPARISON: Mammogram and ultrasound 05/18/2020. TECHNIQUE: Three Madelaine MRI imaging was performed with a dedicated breast coil. Axial, coronal, and sagittal T1 and T2 weighted scans were obtained with and without fat saturation in the usual fashion. The study includes dynamically acquired post gadolinium-enhanced imaging with image subtraction. Maximum intensity projection and multi planar reformation imaging is included as well. This study is interpreted with the aid of [employer], an FDA approved computer aided detection (CAD) software program, on a dedicated breast MRI workstation. The gadolinium enhancement dose is 19 mL of intravenous ProHance. FINDINGS: Mild to moderate scattered fibroglandular tissue is present bilaterally. Scattered subcentimeter cystic structures are seen in the right breast with no suspicious enhancing mass or morphologic abnormality. There is no right axillary adenopathy present. There has been recent surgery of the left breast. A fluid-filled surgical cavity is seen laterally and somewhat posteriorly measuring about 5 cm in diameter. Along the anterior aspect of the surgical cavity extending anteriorly to the retroareolar region, there are areas of ill-defined and somewhat nodular enhancement in a regional distribution with type 2 and type 3 enhancement. This may represent a region of diffuse tumor enhancement. However inflammation and/or infection could also cause this appearance. Similarly in the left axillary region there is an area of regional ill-defined enhancement, with dimensions about 4 x 2 centimetres. Presence of tumor in this region cannot be excluded, again inflammation/infection could also cause this appearance. IMPRESSION: BI-RADS category 6 known left breast cancer. Fluid-filled surgical cavity is seen posterolaterally in the left breast measuring 5 cm in diameter. Along the anterior aspect of the cavity there is ill-defined nodular enhancement in a regional distribution extending anteriorly into the retroareolar region. This is suspicious for a region of diffuse tumor enhancement. However, inflammation and/or infection could also cause this appearance. Similarly in the left axillary region there is an area of ill-defined enhancement 4 x 2 cm representing tumor or inflammation/infection. <Electronically signed by Gallo Guzman > 11/20/20 [id number]
== END ==
LOC: M RAD 14:24
PROVIDERS: ATTEND Surgery
DX: C50.912 Malignant neoplasm of unspecified site of left female breast (principal)
CPT/HCPCS: 77049; A9576

== ENCOUNTER → 2020-11-20 | Outpatient (CLI) | payer OTHER ==
[~2020-11-20] MED LIST changes: -PROHANCE 279.3MG/ML 15ML VIAL As Ordered ONE; -PROHANCE 279.3MG/ML 5ML VIAL As Ordered ONE
--- NOTE | 2020-11-20 14:45 | RADONC.CN ---
Radiation Oncology Hx/Consult Radiation Oncology Consult Date of Service: Nov 20, 2020 Pt Identifier Tanna Calvin is a 60 year old female with a complex abdominal surgical history as well as left breast cancer [id number] triple negative grade 2. She is s/p lumpectomy and margin directed re-excision with SLNB with Dr. Anna on 11/03/20 and 11/11/20, respectively. She is seen today to discuss the possible role of adjuvant RT in her care. Diagnosis/Treatment History Oncologic History 05/13/20:Screening mammogram with increased densities in BL breast BIRADS 0 05/18/20: Diagnostic mammogram with US showing lesion in the upper outer quadrant 07/20/20-08/02/20 ICU ([facility]) for pancreatitis 09/08/20: Biopsy showing DCIS ER+ (weak) [place]/HER2- 11/03/20: Lumpectomy [id number] ER/[place]/HER2- grade 2, EIC, margins+ 11/11/20: Margin directed re-excision SLNB final stage [id number] margins <3mm to DCIS Breast history: (1 interrupted ) 1st @ 19 Menses @ 14 Menopause @ 59 No OCP No HRT No IVF Interval History Here with her granddaughter. Reports she is doing well from an abdominal symptoms [id number]. She has minimal tenderness remaining in the lateral left breast. She has an MRI scheduled later today in anticipation of mastectomy with Dr. Anna in the coming weeks. Her appetite and energy levels are stable. She has urology followup for her hydronephrosis in place. Past Medical History: Blodd clot GERD Hydronephrosis Pancreatitis Hiatal hernia Past Surgical History: Hernia repair Liver laceration repair EGD complicated by perforation Family History: Sister-breast cancer Sister-gastric cancer () Social History: Never smoker Never drinker Allergies / Meds Allergies: Coded Allergies: adhesive (Verified Allergy, Intermediate, redness, itching, 10/28/20) Home Meds Reported Medications Ergocalciferol (Vitamin D2) (Vitamin D2) 50,000 Units Cap, 41598 UNITS PO QWEEK, CAP monday10/19/20 Oxycodone HCl (Oxycodone HCl) 10 Mg Tablet, 10 MG PO PRN PRN for PAIN, TAB 10/19/20 Magnesium Oxide (Magnesium) 400 Mg Capsule, 400 MG PO DAILY, CAP 10/19/20 Fenofibrate Nanocrystallized (Fenofibrate) 48 Mg Tablet, 48 MG PO DAILY, TAB 10/19/20 Famotidine (Famotidine) 20 Mg Tablet, 20 MG PO BID, TAB 10/19/20 Escitalopram Oxalate (Lexapro) 10 Mg Tablet, 20 MG PO DAILY, TAB 10/19/20 Atorvastatin Calcium (Atorvastatin Calcium) 40 Mg Tablet, 40 MG PO DAILY, TAB 10/19/20 Apixaban (Eliquis) 5 Mg Tablet, 5 MG PO BID, TAB 10/19/20 Review of Systems Constitutional: Denies: Weakness, Fatigue Eyes: Denies: Pain HEENT: Denies: Head Aches Pulmonary: Denies: Dyspnea, Cough Cardiovascular: Denies: Chest Pain, Palpitations Breast: Denies: New Breast Lumps / Masses, Nipple Retraction, Nipple Discharge Gastrointestinal: Denies: Abdominal Pain, Constipation Genitourinary: Denies: Dysuria, Frequency Hematologic: Denies: Bruising, Bleeding Excessively Neurological: Reports: Other Symptoms (Some memory problems); Denies: Weakness, Change in Speech Psych: Reports: Mood Normal Vital Signs Ht 66" Wt 212 lbs T 97 P 70 RR 18 BP 128/75 O2 96% Pain 0 Fatigue 0 General Exam: Positive: Alert, Cooperative, No Acute Distress Eye Exam: Positive: PERRLA, EOMI ENT EXAM: Positive: Atraumatic Neck Exam: Positive: Supple Chest Exam: Positive: Clear to auscultation Heart Exam: Positive: Rate Normal Breast Exam: Positive: Symmetric Bilaterally (Mild ptosis), Skin Changes (Left lateral periareolar incision healing, left axillary tail incision healing); Negative: Lumps or Masses (Palpable left lateral breast surgical bed mild associated tenderness), Nipple Retraction Abdomen Exam: Positive: Soft, Other (Ventral incision well healed no hernia); Negative: Hernia Skin Exam: Positive: Nl turgor and temperature Neuro Exam: Positive: Normal Gait, Normal Speech, Cranial Nerves 3-12 NL Psych Exam: Positive: Mental status NL Diagnostic and Laboratory Diagnostic Review Radiologic images, relevant labs and pathology reports were personally reviewed and discussed with Ms. Calvin. Assessment and Plan Impression Ms. Calvin is a 60 year old female with a complex abdominal surgical history as well as left breast cancer [id number] triple negative grade 2. She is s/p lumpectomy and margin directed re-excision with SLNB with Dr. Anna on 11/03/20 and 11/11/20, respectively. She is seen today to discuss the possible role of adjuvant RT in her care. Stage Stage IB left upper outer breast cancer [id number] ER/[place]/HER2- grade 2 Performance Status ECOG 0 Plan We had an extensive discussion with Ms. Calvin regarding the diagnosis at hand and available therapeutic options. She has an EOD MRI pending in anticipation of mastectomy due to inadequate margins from her previous surgeries. Based on her current stage and receptor status she should be considered for chemotherapy. She has an appointment with Dr. Castañeda upcoming for this purpose. With respect to radiation, barring a positive margin on the mastectomy specimen, I would not advocate for adjuvant RT in her case on the basis of the extent of invasive disease and the solitary micrometastasis on SLNB. We discussed this in great detail. I will follow up the results of her conversation with Dr. Castañeda as well as her final pathology from mastectomy. If there is an indication for PMRT evident on pathology, I will call her discuss, and schedule her for follow up appropriately (likely in 3+ months, if she proceeds with adjuvant chemotherapy). After discussing the risks, benefits and alternatives to radiation therapy, Ms. Calvin was amenable to pursuing mastectomy and considering adjuvant chemotherapy for her triple negative breast cancer. All questions were answered to the patient's satisfaction. We instructed the patient that if there were any questions,concerns or changes in clinical status in the interim to contact us. Recommendations No indication for PMRT evident at this time Will follow up final pathology from mastectomy (NB margin status) Will reach out to patient if there is need to consider PMRT further Billing Statement Total time of [36] minutes was spent preparing for the visit [2], obtaining HPI [4], examining the patient [4], reviewing diagnostic tests [7], discussing management options [10], coordinating care [1], and writing this note [8]. SELENA RAMSEY MD Nov 20, 2020 14:45
== END ==
LOC: M ONCR 12:36
PROVIDERS: ATTEND General Practice
DX: C50.912 Malignant neoplasm of unspecified site of left female breast (principal); K44.9 Diaphragmatic hernia without obstruction or gangrene; Z79.899 Other long term (current) drug therapy

== ENCOUNTER 2020-12-01 11:54 | Observation (INO) | payer OTHER ==
[~2020-12-01] VITALS: Ht 167.6 cm; Wt 96.3 kg
[~2020-12-01 11:54] MED LIST changes: +DOCU100C16 PO; +ERGO500029 PO; +HEPARIN SOD (PORCINE) 5000UNITS/ML 1ML VIAL/SYRINGE SQ ONE; +LR 1,000 ML IV ONE; +ceFAZolin SOD 2 GM in IV 1 EA IV ONE
[2020-12-01] MEDS ORDERED: ceFAZolin 1GM VIAL (J0690 PER 500MG) As Ordered ONE (12:34)
[2020-12-01] MEDS ORDERED: BUPIVACAINE LIPOSOME/PF 1.3% 20ML VIAL (13.3MG/ML)(EXPAREL)(C9290 PER1MG) As Ordered ONE (12:34)
[2020-12-01] MEDS ORDERED: fentaNYL 250 MCG/5 ML INJECTION (J3010) As Ordered ONE (12:56)
[2020-12-01] MEDS ORDERED: LIDOCAINE 2% 100MG/5ML SDV (FOR ANES.) As Ordered ONE (12:56)
[2020-12-01] MEDS ORDERED: ROCURONIUM BROMIDE 50 MG/5 ML VIAL As Ordered ONE ×2 (12:56→15:47)
[2020-12-01] MEDS ORDERED: ONDANSETRON 4MG/2ML VIAL As Ordered ONE (12:56)
[2020-12-01] MEDS ORDERED: propofoL 200 MG/20 ML VIAL As Ordered ONE (12:56)
[2020-12-01] MEDS ORDERED: dexameTHASONE 4 MG/ML 1ML VIAL (J1100 PER 1MG) As Ordered ONE (12:56)
[2020-12-01] MEDS ORDERED: MIDAZOLAM INJ 2MG/2ML VIAL (J2250 PER 1MG) As Ordered ONE (12:56)
[2020-12-01] MEDS ORDERED: SCOPOLAMINE 1MG TRANSDERMAL PATCH TOP ONE (13:05)
[2020-12-01] MEDS ORDERED: ACETAMINOPHEN 1000MG 100ML IV BTL (OFIRMEV) (J0131 PER 10MG) As Ordered ONE (14:46)
[2020-12-01] MEDS ORDERED: HYDROmorphone HCL 2 MG/ML 1ML VIAL (J1170) As Ordered ONE (15:03)
[2020-12-01] MEDS ORDERED: SUGAMMADEX SODIUM 500 MG/5 ML VIAL (BRIDION) As Ordered ONE (15:03)
[2020-12-01] MEDS ORDERED: ePHEDrine SULFATE 25 MG/5 ML(5MG/ML) SYRINGE As Ordered ONE (15:54)
[2020-12-01] MEDS ORDERED: ONDANSETRON 4MG/2ML VIAL IV PRN ×2 (17:40→18:35)
[2020-12-01] MEDS ORDERED: traMADol 50 MG TAB PO PRN (17:40)
[2020-12-01] MEDS ORDERED: ACETAMINOPHEN TAB 650MG DOSE (2X325MG) PO PRN (17:40)
[2020-12-01] MEDS ORDERED: LR 1,000 ML IV SCH ×2 (17:40→18:35)
[2020-12-01] MEDS ORDERED: LABETALOL 100MG/20ML VIAL As Ordered ONE (17:48)
--- NOTE | 2020-12-01 18:07 | POST-OPPD ---
Postoperative Procedure Note Date Of Procedure: Dec 01, 2020 PREOPERATIVE DIAGNOSIS: Bilateral acquired absence of breasts and nipples s/p bilateral mastectomy POSTOPERATIVE DIAGNOSIS: same FINDINGS: s/p bilateral mastectomy PROCEDURE: Immediate post bilateral mastectomy breast reconstruction with tissue expanders. SURGEON: Dr Calero LINK AND LINK KNITTING MACHINE OPERATOR: Dr Anna ANESTHESIA: General SPECIMENS: none ESTIMATED BLOOD LOSS: 100 cc total procedure REPLACED: none DRAINS: 10 mm KAVEH x 2 IMPLANTS: [place] moderate profile smooth lens molder 650cc. Filled to 180 cc NS bilaterally COMPLICATIONS: none POSTOPERATIVE CONDITION: stable CANDE CALERO DO Dec 01, 2020 18:07
--- NOTE | 2020-12-01 18:08 | ROOPDOC ---
[facility] Report Of Operation Report of Operation DATE OF PROCEDURE: 12/01/20 PREOPERATIVE DIAGNOSIS: Bilateral acquired absence of breasts and nipples s/p bilateral mastectomy POSTOPERATIVE DIAGNOSIS: same FINDINGS: s/p bilateral mastectomy PROCEDURE: Immediate post bilateral mastectomy breast reconstruction with tissue expanders. SURGEON: Dr Calero BAND TOP MAKER: Dr Anna ANESTHESIA: General SPECIMENS: Right breast 646 gm, Left breast 661 gm ESTIMATED BLOOD LOSS: 100 cc total procedure REPLACED: none DRAINS: 10 mm KAVEH x 2 IMPLANTS: [place] moderate profile smooth research laboratory specialist 650cc. Filled to 180 cc NS bilaterally COMPLICATIONS: none POSTOPERATIVE CONDITION: stable This is a 60-year-old female who scheduled to have bilateral mastectomies today with Dr. Anna. Patient agreed to have bilateral reconstruction with expanders. Risk, benefits, and alternatives were discussed with the patient in details. Patient was marked in preoperative holding area in upright position. Then she was brought into the operating room, placed in supine position, sequential stockings placed on her lower calves, and general anesthesia is induced. Mastectomy procedure will be dictated separately by Dr. Anna. After mastectomy part of the procedure was completed patient was prepped and draped with new sterile drapes. We started our procedure on the right side. With help of Dr. Anna who was providing visualization I elevated pectoralis muscle and created subpectoral pocket using electrocautery under direct vision with lighted retractor. Hemostasis was obtained obtained using electrocautery as well. Anterior serratus muscle was elevated off the rib cage and retracted laterally to accommodate our lateral inferior coverage for the implant. While Dr. Anna was irrigating the pocket and administering Exparel for local anesthesia, I was preparing the research laboratory specialist on a back table. All the air was expelled from the research laboratory specialist, it was soaked in antibiotic solution. Than research laboratory specialist was placed into the pocket. Pocket was closed with interrupted 3-0 Vycril sutures. 650 mL moderate profile smooth [place] research laboratory specialist was used. We expanded it to 180 mL of normal saline. 10 mm Edward-Miranda drain was placed through a separate stab incision. The skin flaps were closed in inverted T fashion with interrupted 3-0 Monocryl sutures followed by 3-0 Monocryl V lock suture. We continued our procedure on the left side. With help of Dr. Anna who was providing visualization I elevated pectoralis muscle and created subpectoral pocket using electrocautery under direct vision with lighted retractor. Hemostasis was obtained obtained using electrocautery as well. Anterior serratus muscle was elevated off the rib cage and retracted laterally to accommodate our lateral inferior coverage for the implant. While Dr. Anna was irrigating the pocket and administering Exparel for local anesthesia, I was preparing the research laboratory specialist on a back table. All the air was expelled from the research laboratory specialist, it was soaked in antibiotic solution. Than research laboratory specialist was placed into the pocket. Pocket was closed with interrupted 3-0 Vycril sutures. 650 mL moderate profile smooth [place] research laboratory specialist was used. We expanded it to 180 mL of normal saline. 10 mm Edward-Miranda drain was placed through a separate stab incision. The skin flaps were closed in inverted T fashion with interrupted 3-0 Monocryl sutures followed by 3-0 Monocryl V lock suture. Total Exparel 20 cc used. Prinio dressing applied to the incision followed by a bulky dressing and a surgical bra. Patient extubated without any difficulties and transferred to recovery room in stable condition. CANDE CALERO DO Dec 01, 2020 18:08
[2020-12-01] MEDS ORDERED: MORPHINE 2 MG/ML 1ML VIAL (J2270) IV PRN (18:35)
--- NOTE | 2020-12-01 18:45 | CR.PDOC ---
General Date of Consultation: Dec 01, 2020 Referring Provider: SONIA COLLADO DO Attending Physician: LINDSEY ROB MD Consultation REASON FOR CONSULTATION/CHIEF COMPLAINT: [Post op mastectomy]. HISTORY OF PRESENT ILLNESS: [This is a 60 y/o female with a pmh of gerd, hld, hepatic vte 2/2 pancreatitis in 08/02, and breast ca who is seen by myself in the PACU s/p b/l mastectomy. Patient is resting comfortably and states that her only complaint is being sore from the surgery. Patient is alert and oriented. Patient denies any acute pain, nausea, vomiting, headaches, lower extremity pain/swelling. Patient being admitted for surgical day care, hospital team consulted to manage chronic issues as stated above. ]. ALLERGIES: Please see below. HOME MEDICATIONS: Please see below. PAST MEDICAL HISTORY: 1. [See HPI PAST SURGICAL HISTORY: 1. [Cholecystectomy complicated by liver laceration] 2. [Appendectomy 3. Unspec. hernia surgery 4. Right sided ureteral stent placement 5. Tubal ligation 6. Carpal tunnel repair] FAMILY HISTORY: Reviewed - none pertinent SOCIAL HISTORY: Denies alcohol/tobacco/illicit drug use REVIEW OF SYSTEMS: CONSTITUTIONAL: [Denies fever, chills]. HEENT: [Denies uri sx]. CARDIOVASCULAR: [Denies chest pain, palpitations]. RESPIRATORY: [Denies sob, wheezing]. GENITOURINARY: [Denies dysuria]. MUSCULOSKELETAL: [Admits to soreness of the chest. Denies acute back pain]. GASTROINTESTINAL: [Denies n/v/d/c, tate abd pain]. SKIN: [Denies rash]. NEUROLOGICAL: [Denies syncope]. ENDOCRINE: [Denies hx of DM]. HEMATOLOGIC/LYMPHATIC: [Hx of VTE of hepatic system]. PHYSICAL EXAMINATION: VITAL SIGNS: Please see below. GENERAL APPEARANCE: [This is a 60 y/o female who does not appear in any respiratory distress. She is fatigued from surgery but is alert and oriented.]. HEENT: [No mass or lesion. EOMI. No scleral icterus. Oral mucosa moist without erythema.]. RESPIRATORY: [Good air flow appreciated b/l. No wheezing, rales, rhonchi.]. CARDIOVASCULAR: [Regular rate, rhythm. No murmurs, rubs, gallops]. ABDOMEN: [Soft, nontender.]. EXTREMITIES: [No peripheral edema noted. No overlying skin changes. Pulses intact.]. NEUROLOGICAL: [Speech clear. A+Ox3. Patient moves all fours freely. No focal deficits.]. PSYCHIATRIC: [Mood and affect appear appropriate]. LABORATORY DATA: Please see below. ASSESSMENT/PLAN: 1. [Left sided breast ca s/p b/l mastectomy - Post op pain control/nausea control/instructions as per primary team - Patient mildly hypoxic to 89% on room air upon my arrival at bedside. Likely secondary to anesthesia and hx of suspected OLESYA. Will keep patient on nasal canula overnight as tolerated titrated to >90%.]. 2. Hx of portal vein thrombosis, sustained in the setting severe pancreatitis pancreatitis in 07/2020 - no abd pain/discomfort at this time - Patient on eliquis at home, last dose was 11/25 - Agree with primary team to continue heparin 5000u q8h post op - Patient may continue eliquis upon dc 3. GERD - continue propranolol, famotidine 4. HLD - continue fenofibrate, lipitor 5. Depression/anxiety - continue lexapro DVT prophylaxis - heparin, as stated]. Vital Signs/I&O Vital Signs Date Time Temp Pulse Resp B/P (MAP) Pulse Ox O2 Delivery O2 Flow Rate FiO2 12/01/20 18:35 76 17 150/76 (100) 97 Nasal Cannula 2.0 12/01/20 18:15 97.7 Allergies Coded Allergies: adhesive (Verified Allergy, Intermediate, redness, itching, 10/28/20) Home Medications Scheduled Apixaban (Eliquis) 5 Mg Tablet, 5 MG PO BID, (Reported) Atorvastatin Calcium (Atorvastatin Calcium) 40 Mg Tablet, 40 MG PO DAILY, (Reported) Docusate Sodium (Docusate Sodium) 100 Mg Capsule, 100 MG PO BID, (Reported) Ergocalciferol (Vitamin D2) (Vitamin D2) 50,000 Units Cap, 50,000 UNITS PO QWEEK, (Reported) monday Escitalopram Oxalate (Lexapro) 20 Mg Tablet, 20 MG PO DAILY, (Reported) Famotidine (Famotidine) 20 Mg Tablet, 20 MG PO QHS, (Reported) Fenofibrate (Fenofibrate) 54 Mg Tablet, 54 MG PO DAILY, (Reported) Ferrous Sulfate (Ferrous Sulfate) 325 Mg Tablet.dr, 325 MG PO 3x a week, #60 Magnesium Oxide (Magnesium) 400 Mg Capsule, 400 MG PO DAILY, (Reported) Pantoprazole Sodium (Pantoprazole Sodium) 40 Mg Tablet.dr, 40 MG PO DAILY, (Reported) Scheduled PRN Ondansetron HCl (Ondansetron HCl) 8 Mg Tablet, 8 MG PO Q12H PRN for NAUSEA OR VO MITING, #30 Oxycodone HCl (Oxycodone HCl) 10 Mg Tablet, 10 MG PO PRN PRN for PAIN, (Reported) Oxycodone HCl (Roxicodone) 5 Mg Tablet, 5 MG PO Q6HP PRN for pain for 5 Days, #20 Prochlorperazine Maleate (Prochlorperazine Maleate) 10 Mg Tablet, 10 MG PO Q6H PRN for NAUSEA OR VOMITING, #30 ROBERT PETERSON Dec 01, 2020 18:45 LINDSEY ROB MD Dec 14, 2020 19:34
[2020-12-01] MEDS: fentaNYL 100 MCG/2 ML INJECTION (J3010) IV PRN ×4 (18:48→19:26)
[2020-12-01] MEDS: oxyCODONE 5MG TAB PO PRN ×2 (19:12→20:10)
[2020-12-01] MEDS ORDERED: FAMOTIDINE 20 MG TAB PO SCH (21:00)
[2020-12-01 21:15] VITALS: BP 158/84
[2020-12-01] MEDS: ceFAZolin SOD 2 GM in IV 1 EA IV SCH (21:24)
[2020-12-01] MEDS: HEPARIN SOD (PORCINE) 5000UNITS/ML 1ML VIAL/SYRINGE SQ SCH (21:24)
[2020-12-01] MEDS: MORPHINE 2 MG/ML 1ML VIAL (J2270) IV PRN (21:25)
[2020-12-01 21:45] VITALS: BP 139/65
[2020-12-01 22:15] VITALS: BP 116/60
[2020-12-01 23:15] VITALS: BP 127/66
[2020-12-02 00:15] VITALS: BP 129/68
[2020-12-02] MEDS: HEPARIN SOD (PORCINE) 5000UNITS/ML 1ML VIAL/SYRINGE SQ SCH (05:57)
[2020-12-02] MEDS: MORPHINE 2 MG/ML 1ML VIAL (J2270) IV PRN (05:58)
[2020-12-02] MEDS: ceFAZolin SOD 2 GM in IV 1 EA IV SCH (05:58)
[2020-12-02 06:06] VITALS: BP 133/69
[2020-12-02] MEDS ORDERED: oxyCODONE 5MG TAB PO PRN (07:40)
[2020-12-02 08:41] LABS: BASO % 0.3 % (0.0-1.0); EOS % 0.2 % (0.0-3.0); HEMATOCRIT 32.8 % (36.0-47.0); HEMOGLOBIN 10.1 g/dl (12.0-15.5); LYMPH # 2.9 10^3/uL (1.5-5.0); LYMPH % 26.9 % (24.0-44.0); MEAN CORPUSCULAR HEMOGLOBIN 25.6 pg (27.0-33.0); MEAN CORPUSCULAR HGB CONC 30.8 g/dl (32.0-36.5); MEAN CORPUSCULAR VOLUME 83.2 fl (80.0-96.0); MONO % 9.3 % (2.0-8.0); NEUTROPHILS # 6.8 10^3/uL (1.5-8.5); PLATELET COUNT, AUTOMATED 311 10^3/uL (150-450); RED BLOOD COUNT 3.94 10^6/uL (4.00-5.40); WHITE BLOOD COUNT 10.9 10^3/uL (4.0-10.0)
[2020-12-02] MEDS ORDERED: FENOFIBRATE 48 MG TAB (TRICOR) PO SCH (09:00)
[2020-12-02] MEDS ORDERED: ATORVASTATIN 20 MG TAB PO SCH (09:00)
[2020-12-02] MEDS ORDERED: PANTOPRAZOLE 40MG TAB (PROTONIX) PO SCH (09:00)
[2020-12-02] MEDS ORDERED: MAGNESIUM OXIDE 400MG TAB (MAG-OX) PO SCH (09:00)
[2020-12-02] MEDS ORDERED: ESCITALOPRAM OXALATE 10 MG TAB (LEXAPRO) PO SCH (09:00)
[2020-12-02 09:05] LABS: BLOOD UREA NITROGEN 14 MG/DL (7-18); CALCIUM LEVEL 8.2 MG/DL (8.5-10.1); CARBON DIOXIDE LEVEL 28 MEQ/L (21-32); CHLORIDE LEVEL 109 MEQ/L (98-107); CREATININE FOR GFR 0.98 MG/DL (0.55-1.30); GLOMERULAR FILTRATION RATE > 60.0 (>51); GLUCOSE, FASTING 110 MG/DL (70-100); POTASSIUM SERUM 3.4 MEQ/L (3.5-5.1); SODIUM LEVEL 142 MEQ/L (136-145)
[2020-12-02] MEDS ORDERED: POTASSIUM CHLORIDE 10 MEQ SR TABLET PO ONE (09:50)
[2020-12-02 10:00] VITALS: BP 128/70
--- NOTE | 2020-12-02 10:21 | IPNPDOC ---
Subjective General Date Seen: Dec 02, 2020 Subject Chief Complaint/History The patient is a 60-year-old female admitted with a reason for visit of Left Breast Cancer, status post 2 previous excisions of the left breast cancer with persistent close margins and status post left sentinel lymph node biopsy, which showed micrometastasis in 1 of the lymph nodes. Patient underwent bilateral skin sparing mastectomy with reconstructions done yesterday. She was admitted for observation and recovery. No acute issues overnight. Her right drain drained 50 mL serosanguineous drainage and her left drain drained 50 mL serosanguineous sanguinous drainage. Patient did not sleep well due to some discomfort. She was able to tolerate food and she voided postop. Current Medications Current Medications Current Medications Medications (Trade) Dose Ordered Sig/Kacie Route PRN Reason Start Time Stop Time Status Last Admin Dose Admin Acetaminophen (Tylenol Tab) 650 mg Q6H PRN PO MILD PAIN (PS 1-4) 12/01/20 17:40 12/02/20 05:58 Atorvastatin Calcium (Lipitor) 40 mg DAILY PO 12/02/20 09:00 12/02/20 09:00 Cefazolin Sodium/ Dextrose 2 gm/IV Miscellaneous Supplies 50 ml @ 75 mls/hr Q8H IV 12/01/20 22:00 12/02/20 21:59 12/02/20 05:58 Escitalopram Oxalate (Lexapro) 20 mg DAILY PO 12/02/20 09:00 12/02/20 09:00 Famotidine (Pepcid) 20 mg QHS PO 12/01/20 21:00 12/01/20 21:24 Fenofibrate (Tricor) 48 mg DAILY PO 12/02/20 09:00 12/02/20 10:06 Fentanyl Citrate (Sublimaze) 25 mcg Q5MP PRN IV PAIN LEVEL 5-10 12/01/20 18:35 12/01/20 19:27 DC 12/01/20 19:26 Heparin Sodium (Porcine) (Heparin) 5,000 units Q8H SQ 12/01/20 22:00 12/02/20 05:57 Lactated Ringer's 1,000 ml @ 75 mls/hr [id number] IV 12/01/20 17:40 12/02/20 07:46 DC 12/02/20 01:52 Lactated Ringer's 1,000 ml @ 84 mls/hr [id number] IV 12/01/20 18:35 12/01/20 20:35 DC Magnesium Oxide (Mag-Ox) 400 mg DAILY PO 12/02/20 09:00 12/02/20 09:02 Morphine Sulfate (Morphine Sulfate Inj) 2 mg Q3H PRN IV SEVERE PAIN (PS 8-10) 12/01/20 17:40 12/02/20 05:58 Morphine Sulfate (Morphine Sulfate Inj) 2 mg Q5MP PRN IV PAIN LEVEL 4-7 12/01/20 18:35 12/01/20 20:35 DC Ondansetron HCl (ZOFRAN INJection) 4 mg Q4H PRN IV NAUSEA OR VOMITING 12/01/20 17:40 Ondansetron HCl (ZOFRAN INJection) 4 mg Q4HP PRN IV NAUSEA OR VOMITING 12/01/20 18:35 12/01/20 20:35 DC Oxycodone HCl (Roxicodone, Oxyir) 5 mg ASDIRECTED PRN PO PAIN LEVEL 1-4 12/01/20 18:35 12/01/20 20:11 DC 12/01/20 20:10 Oxycodone HCl (Roxicodone, Oxyir) 5 mg Q6HP PRN PO MODERATE PAIN (PS 5-7) 12/02/20 07:40 12/02/20 09:26 Pantoprazole Sodium (Protonix) 40 mg DAILY PO 12/02/20 09:00 12/02/20 09:01 Tramadol HCl (Ultram) 50 mg Q6HP PRN PO MODERATE PAIN (PS 5-7) 12/01/20 17:40 12/02/20 07:43 DC 12/02/20 01:52 Allergies Coded Allergies: adhesive (Verified Allergy, Intermediate, redness, itching, 10/28/20) Objective Physical Examination Examination GENERAL APPEARANCE:Patient seen, laying in bed, awake, alert, and oriented. Comf ortable, in no acute distress BREAST: Bilateral breasts are surgically absent. Mastectomy flaps are viable. There is some edema of the mastectomy flaps and some bruising. However, there is no palpable hematoma. Tissue expanders are in place with small amount of fluid. Incisions are well approximated. There is no drainage or erythema along the incision sites. Prineo dressing is in place. Patient has to KAVEH drains, one on each site with serosanguineous drainage. Those drains were stripped this morn ing. HEENT: Normocephalic, atraumatic. LUNGS: Breathing comfortably on room air. HEART: No tachycardia ABDOMEN: Abdomen is nondistended EXTREMITIES: No gross abnormality in upper or lower extremities Vital Signs Vital Signs Date Time Temp Pulse Resp B/P (MAP) Pulse Ox O2 Delivery O2 Flow Rate FiO2 12/02/20 09:56 18 12/02/20 06:06 98.1 67 133/69 (90) 100 Room Air 12/01/20 21:03 2.0 I&Os I&O- Last 24 Hours up to 6 AM 12/02/20 06:00 Intake Total 1930 ml Output Total 320 ml Balance 1610 ml Laboratory Data Labs 24H Laboratory Tests 2 12/02/20 08:23: Immature Granulocyte % (Auto) 0.3, Neutrophils (%) (Auto) 63.0, Lymphocytes (%) (Auto) 26.9, Monocytes (%) (Auto) 9.3H, Eosinophils (%) (Auto) 0.2, Basophils (%) (Auto) 0.3, Neutrophils # (Auto) 6.8, Lymphocytes # (Auto) 2.9, Monocytes # (Auto) 1.0H, Eosinophils # (Auto) 0.0, Basophils # (Auto) 0.0, Nucleated Red Blood Cells % (auto) 0.0, Anion Gap 5L, Glomerular Filtration Rate > 60.0, Calcium Level 8.2L CBC/BMP Laboratory Tests 12/02/20 08:23 Impression 60-year-old female with history of left breast cancer, status post 2 excisions with persistent close margins and additional foci of cancer identified in excisions, status post left sentinel lymph node biopsy, which showed micrometastasis in 1 of the lymph nodes, now status post bilateral skin sparing mastectomy with retropectoral tissue stainless steel finisher placement bilaterally. Surgery was done yesterday. Patient recovered well from surgery. -Monitor drain output, please teach patient how to empty the drain and how to record it. She needs to bring this information to the office with the drainage per 24 hours -Pain control, we'll switch Ultram to Oxycodone -Stop IVF - resume ELIQUIS tomorrow, discussed with patient - Follow-up appointment next week with Dr. Garcia. This has been already scheduled. Follow-up appointment with me on December 17 at 11:00 - Patient stable for discharge from surgical point of view - Will discharge patient later on today, as long as medical team clears her for discharge, please contact medical team for recommendations - greatly appreciate medical team input in taking care of this patient - Rx for oxycodone will be sent to her pharmacy, preliminary discharge order will be placed as well - Case discussed with nursing staff and patient Plan / VTE VTE Prophylaxis Ordered?: Yes SONIA COLLADO DO Dec 02, 2020 10:21
[2020-12-02] MEDS ORDERED: ROXI1TAB2 PO (10:24)
--- NOTE | 2020-12-02 11:18 | SKHPN ---
[facility] Progress Note Date of Service/Time Date: Dec 02, 2020 Progress Note SUBJECTIVE: Patient reports no acute concerns at this time. She reports that Dr. Cooney had already seen her today. Patient denies any diaphoresis, headache, visual disturbances, heart palpitations, shortness of breath, nausea, vomiting, diarrhea, constipation, and numbness or tingling sensation. She reports that her pain is well managed on her pain medications from the procedure. OBJECTIVE: PHYSICAL EXAMINATION: VITAL SIGNS: Please see below. GENERAL: In no acute distress sitting upright in bed, alert and cooperative on exam. Patient has a cloth brace around her chest, and 2 KAVEH drains. HEENT: Normocephalic atraumatic, PERRLA, no scleral icterus, oropharyngeal mucosa moist CARDIOVASCULAR: Regular rate and rhythm, no murmurs rubs or gallops appreciated. LUNGS: Clear to auscultation bilaterally, no wheezes, rales, rhonchi ABDOMINAL: Soft, nontender, nondistended, bowel sounds present EXTREMITIES: No clubbing, cyanosis, edema appreciated. Patient continues to protect her left arm due to lymph node excision of the left axilla. Radial and pedal pulses equal and bounding. PSYCHOLOGICAL: Normal full and open affect. LABORATORY DATA: Please see below. ASSESSMENT/PLAN: Patient is a 60-year-old female who presented for bilateral skin sparing mastectomy with reconstruction and with left sentinel lymph node biopsy. Internal medicine team is being consulted for medical management. #Status post bilateral skin-sparing mastectomy with left sentinel lymph node biopsy. Per Dr. Anna's recommendations. Patient is likely going to be discharged today. #Borderline hypokalemia Patient has been administered potassium chloride p.o. #Dyslipidemia Continue home medication 40 mg daily Continue fenofibrate 54 mg daily #According to patient's clinic notes patient is on apixaban but there is no documented indication Continue home apixaban 5 mg p.o. twice daily as done in the outpatient setting, starting tomorrow per Dr. Anna's recommendations. #GERD Continue home pantoprazole 40 mg daily #Gastroparesis Continue home docusate 100 mg daily #Vitamin D deficiency Continue home vitamin D2 50,000 units every week Disposition: Patient is medically optimized for discharge as long as patient meets follow-up appointments and recommendations set by Dr. Anna's team. ........................ Allergies Coded Allergies: adhesive (Verified Allergy, Intermediate, redness, itching, 10/28/20) VS, I&O, 24H, Fishbone Vital Signs/I&O Vital Signs Date Time Temp Pulse Resp B/P (MAP) Pulse Ox O2 Delivery O2 Flow Rate FiO2 12/02/20 10:00 98.5 69 13 128/70 (89) 95 Room Air 12/01/20 21:03 2.0 I&O- Last 24 Hours up to 6 AM 12/02/20 06:00 Intake Total 1930 ml Output Total 320 ml Balance 1610 ml Laboratory Data 24H LABS Laboratory Tests 2 12/02/20 08:23: Immature Granulocyte % (Auto) 0.3, Neutrophils (%) (Auto) 63.0, Lymphocytes (%) (Auto) 26.9, Monocytes (%) (Auto) 9.3H, Eosinophils (%) (Auto) 0.2, Basophils (%) (Auto) 0.3, Neutrophils # (Auto) 6.8, Lymphocytes # (Auto) 2.9, Monocytes # (Auto) 1.0H, Eosinophils # (Auto) 0.0, Basophils # (Auto) 0.0, Nucleated Red Blood Cells % (auto) 0.0, Anion Gap 5L, Glomerular Filtration Rate > 60.0, Calcium Level 8.2L CBC/BMP Laboratory Tests 12/02/20 08:23 GME ATTESTATION GME ATTESTATION My faculty preceptor for this patient encounter was physically present during the encounter and was fully available. All aspects of the patient interview, examination, medical decision making process, and medical care plan development were reviewed and approved by the faculty preceptor. The faculty preceptor is aware and concurs with the plan as stated in the body of this note and will attest to such by his/her cosignature. Kevin Richardson DO Dec 02, 2020 11:18
--- NOTE | 2020-12-02 13:50 | IPNPDOC ---
Subjective General Date Seen: Dec 02, 2020 Subject Chief Complaint/History The patient is a 60-year-old female admitted with a reason for visit of Left Breast Cancer, Acquired Absence Of.... Patient status post bilateral mastectomy with immediate breast reconstruction with expanders. Postop day 1. Feeling well today, pain controlled, tolerating diet, ambulating. Current Medications Current Medications Current Medications Medications (Trade) Dose Ordered Sig/Kacie Route PRN Reason Start Time Stop Time Status Last Admin Dose Admin Acetaminophen (Tylenol Tab) 650 mg Q6H PRN PO MILD PAIN (PS 1-4) 12/01/20 17:40 12/02/20 13:18 DC 12/02/20 05:58 Atorvastatin Calcium (Lipitor) 40 mg DAILY PO 12/02/20 09:00 12/02/20 13:18 DC 12/02/20 09:00 Cefazolin Sodium/ Dextrose 2 gm/IV Miscellaneous Supplies 50 ml @ 75 mls/hr Q8H IV 12/01/20 22:00 12/02/20 13:18 DC 12/02/20 05:58 Escitalopram Oxalate (Lexapro) 20 mg DAILY PO 12/02/20 09:00 12/02/20 13:18 DC 12/02/20 09:00 Famotidine (Pepcid) 20 mg QHS PO 12/01/20 21:00 12/02/20 13:18 DC 12/01/20 21:24 Fenofibrate (Tricor) 48 mg DAILY PO 12/02/20 09:00 12/02/20 13:18 DC 12/02/20 10:06 Fentanyl Citrate (Sublimaze) 25 mcg Q5MP PRN IV PAIN LEVEL 5-10 12/01/20 18:35 12/01/20 19:27 DC 12/01/20 19:26 Heparin Sodium (Porcine) (Heparin) 5,000 units Q8H SQ 12/01/20 22:00 12/02/20 13:18 DC 12/02/20 05:57 Lactated Ringer's 1,000 ml @ 75 mls/hr [id number] IV 12/01/20 17:40 12/02/20 07:46 DC 12/02/20 01:52 Lactated Ringer's 1,000 ml @ 84 mls/hr [id number] IV 12/01/20 18:35 12/01/20 20:35 DC Magnesium Oxide (Mag-Ox) 400 mg DAILY PO 12/02/20 09:00 12/02/20 13:18 DC 12/02/20 09:02 Morphine Sulfate (Morphine Sulfate Inj) 2 mg Q3H PRN IV SEVERE PAIN (PS 8-10) 12/01/20 17:40 12/02/20 13:18 DC 12/02/20 05:58 Morphine Sulfate (Morphine Sulfate Inj) 2 mg Q5MP PRN IV PAIN LEVEL 4-7 12/01/20 18:35 12/01/20 20:35 DC Ondansetron HCl (ZOFRAN INJection) 4 mg Q4H PRN IV NAUSEA OR VOMITING 12/01/20 17:40 12/02/20 13:18 DC Ondansetron HCl (ZOFRAN INJection) 4 mg Q4HP PRN IV NAUSEA OR VOMITING 12/01/20 18:35 12/01/20 20:35 DC Oxycodone HCl (Roxicodone, Oxyir) 5 mg ASDIRECTED PRN PO PAIN LEVEL 1-4 12/01/20 18:35 12/01/20 20:11 DC 12/01/20 20:10 Oxycodone HCl (Roxicodone, Oxyir) 5 mg Q6HP PRN PO MODERATE PAIN (PS 5-7) 12/02/20 07:40 12/02/20 13:18 DC 12/02/20 09:26 Pantoprazole Sodium (Protonix) 40 mg DAILY PO 12/02/20 09:00 12/02/20 13:18 DC 12/02/20 09:01 Tramadol HCl (Ultram) 50 mg Q6HP PRN PO MODERATE PAIN (PS 5-7) 12/01/20 17:40 12/02/20 07:43 DC 12/02/20 01:52 Allergies Coded Allergies: adhesive (Verified Allergy, Intermediate, redness, itching, 10/28/20) Objective Physical Examination Examination GENERAL APPEARANCE:Patient seen, laying in bed, awake, alert, and oriented. Comfortable, in no acute distress. SKIN: Warm and moist. BREAST: Right and left soft, non-tender incisions intact. KAVEH drains: R80/L80 cc/24 hr. Expanders palpable, soft. LUNGS: Clear to auscultation bilaterally. No wheezing appreciated. HEART: No chest wall abnormalities. Regular rate and rhythm with no murmurs appreciated. ABDOMEN: Abdomen is soft, non-tender, non-distended. EXTREMITIES: No edema identified. No calf tenderness. Vital Signs Vital Signs Date Time Temp Pulse Resp B/P (MAP) Pulse Ox O2 Delivery O2 Flow Rate FiO2 12/02/20 10:00 98.5 69 13 128/70 (89) 95 Room Air 12/01/20 21:03 2.0 I&Os I&O- Last 24 Hours up to 6 AM 12/02/20 05:59 Intake Total 1930 ml Output Total 320 ml Balance 1610 ml Laboratory Data Labs 24H Laboratory Tests 2 12/02/20 08:23: Immature Granulocyte % (Auto) 0.3, Neutrophils (%) (Auto) 63.0, Lymphocytes (%) (Auto) 26.9, Monocytes (%) (Auto) 9.3H, Eosinophils (%) (Auto) 0.2, Basophils (%) (Auto) 0.3, Neutrophils # (Auto) 6.8, Lymphocytes # (Auto) 2.9, Monocytes # (Auto) 1.0H, Eosinophils # (Auto) 0.0, Basophils # (Auto) 0.0, Nucleated Red Blood Cells % (auto) 0.0, Anion Gap 5L, Glomerular Filtration Rate > 60.0, Calcium Level 8.2L CBC/BMP Laboratory Tests 12/02/20 08:23 Impression S/p bilateral breast reconstruction wit tissue expanders POD 1. Recovering well. Stable for discharge. Instructions given. F/up plastic surgery after discharge Plan / VTE VTE Prophylaxis Ordered?: Yes CANDE CALERO DO Dec 02, 2020 13:50
--- NOTE | 2020-12-07 22:33 | ROOPDOC ---
[facility] Report Of Operation Report of Operation DATE OF PROCEDURE: 12/01/20 PREPROCEDURE DIAGNOSES: left breast cancer POSTPROCEDURE DIAGNOSES: left breast cancer PROCEDURE: bilateral skin sparing mastectomy with bilateral retropectoral tissue computer numerical control grinder placement, bilateral pectoralis and serratus muscle block, SURGEON: Sonia Anna [employer] INSTALLER: Nida Garcia ANESTHESIA: general ESTIMATED BLOOD LOSS: Approximately 100 mL. COMPLICATIONS: none REMARKS: R mastectomy 646 g, L 661 g DESCRIPTION OF PROCEDURE: INDICATIONS: Ms. Calvin is a 60-year-old woman who was found to have a suspicious lesion on screening left breast mammogram. This was evaluated through the biopsy done with radiology in August 2020. 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 Patient has problems with pancreatitis which required admission to ICU and her breast intervention was delayed. Patient also had problem with confusion which was evaluated by Neurology prior to surgery. After discussing surgical options, patient opted for breast conservative surgery. Since we did not identify invasive disease, no sentinel lymph node biopsy was needed at index surgery. She was medically cleared for index surgery by her primary care doctor. Patient underwent Left breast excisional biopsy with excision of additional inferior and lateral margin on 11/03/20. She was found to have invasive cancer, 8mm in addition to extensive DCIS. Main specimen contained about 2 cm of DCIS. The inferior margin also had another focus of DCIS measuring 2 cm. Inferior, medial and lateral margins were close. I explained that the mentioned margins need to be excised. In addition, her lymph nodes also need to be evaluated with sentinel lymph node biopsy. She underwent second surgery on November. Micrometastasis was identified in one of two lymph nodes. Lateral and medial margins were clear and adequate. In medial margin additional foci of DCIS were found in those margins. The lateral margin was free of DCIS. The inferior margin contained additional focus of IDC and extensive DCIS involving 7 out 10 blocks. Margins are negative but less that 1 mm. I discussed pathology results with patient and informed her about the above findings and close margin. Option of second reexcision was discussed with the patient, however due to the volume which already has been removed, this option is not very practical. MRI of b/l breast was done to assess extent of disease and possible disease in contralateral breast. Postsurgical changes were seen in the left breast and left axilla. No additional suspicious foci were seen. Surgical options were discussed. Patient opted for bilateral skin sparing mastectomy with reconstruction. She was evaluated by the plastic surgery team and deemed appropriate candidate for reconstruction. She was medically cleared previously. No additional medical evaluation was deemed necessary prior to the mastectomy. Risks and possible complications of surgical procedure including bleeding, infection and injury to surrounding structures were explained to the patient and she wished to proceed. Consent was signed. Subcutaneous heparin 5000 units was given to patient in the preop area. Dr Garcia marked the patient preoperatively as well. DETAILS: Patient was taken to the operating room and placed supine on the operating room table. Pillow was placed under her knees. Foam was placed under her heels. A sign in was called stating patients name, date of and the procedure to be done. Preoperative antibiotics were infused. Smooth induction of general anesthesia was done. Patients hands were extended on arm rests. Care was taken not to over extend patients arms. Pillow was placed under the knees and a foam was placed under the hills. Sequential compression devices were placed and assured to function correctly. Patients bilateral breast and axillas were prepped and draped in the usual fashion. Previous left breast lumpectomy site with seroma was identified and marked on the skin. Appropriate time out was done and patients name, date of , and the procedure to be done were confirmed. Procedure was started with right breast prophylactic mastectomy. An incision was made along the superior portion of right nipple areolar complex and extending down to mid inframammary fold along the previously marked by Dr Garcia site. Subcutaneous flaps were developed using electrocautery dissection. Dissection was carried toward the inframammary fold inferiorly, toward sternum medially, toward inferior aspect of clavicle superiorly and toward the axilla laterally. Doctor Bee assistance was critical in allowing fast progression of the case and decreasing anesthesia time. Breast tissue was dissected from the muscle posteriorly and pectoralis fascia was taken with the specimen. The dissection was carried all the way to the T[facility] of [facility] making sure that axilla is not entered. Breast specimen was marked for orientation with short stitch marking superior edge of mastectomy and long stitch marking lateral edge of mastectomy. The specimen was weighted and weight of 646 grams was reported. The specimen was then placed in formaldehyde, and passed to pathology. Mastectomy cavity was irrigated. Doctor Bee assistance was critical in achieving adequate hemostasis and progressing the case safely. At this point, 10 [place] KAVEH drain was placed into the mastectomy cavity through a separate stab incision and secured at the skin with stitches. Next, pectoral and serratus plane blocks on the right side were also done with Exparel. Next, out attention was turned toward the left breast. A symmetrical incision was made along the superior portion of left nipple areolar complex and extending down to mid inframammary fold along the previously marked by Dr Garcia site. Subcutaneous flaps were developed using electrocautery dissection. Dissection was carried toward the inframammary fold inferiorly, toward sternum medially, toward inferior aspect of clavicle superiorly and toward the axilla laterally. Doctor Bee assistance was critical in allowing fast progression of the case and decreasing anesthesia time. Breast tissue was dissected from the muscle posteriorly and pectoralis fascia was taken with the specimen. The dissection was carried all the way to the T[place] of [place] making sure that axilla is not entered. Previous lumpectomy cavity was encountered and transected. The lateral margin of the lumpectomy cavity was also excised and attached to the mastectomy specimen with the stitches in appropriate anatomical position. Breast specimen was marked for orientation with short single stitch marking superior edge of mastectomy and long singe stitch marking lateral edge of mastectomy. The double stitch was placed at the previous lumpectomy site. The specimen was weighted and weight of 661 grams was reported. The specimen was then placed in formaldehyde, and passed to pathology. Mastectomy cavity was irrigated. Doctor Bee assistance was critical in achieving adequate hemostasis and progressing the case safely. At this point, 10 [place] KAVEH drain was placed into the mastectomy cavity through a separate stab incision and secured at the skin with stitches. Next, pectoral and serratus plane blocks on the left side were also done with Exparel. The bilateral skin sparing mastectomy portion of the procedure was completed. Instrument and sponge count was correct. The chest was re-prepped and re-draped for Dr Bee part of procedure involving tissue computer numerical control grinder placement. Please refer to Dr. Bee note for details of this part of the procedure Floseal was used b/l to achieve hemostasis. I assisted with the reconstruction part of the procedure as well and stayed scrubbed throughout entire procedure. At the end of the procedure, bilateral breasts incisions were closed in the usual fashion with Vicryl suture for deeper layers and Monocryl suture for more superficial layers. Final instrument and sponge count was correct. Dermabond with Prineo dressing was placed. Fluffs were placed over the incisions sites and the surgical bra was placed as well. Patient emerged from general anesthesia without any problems. Patient tolerated procedure well and was taken to recovery unit in stable condition. SONIA ANNA DO Dec 01, 2020 19:00
[2020-12-10] MEDS ORDERED: ONDA8TAB10 PO (13:25)
[2020-12-10] MEDS ORDERED: PROC10TA4 PO (13:25)
[2020-12-10] MEDS ORDERED: FERR325T3 PO (14:52)
== END 2020-12-02 13:15 | disposition home or self-care (01) ==
LOC: M SDC 11:54 → M MS5PR 17:40
PROVIDERS: ADMIT Surgery; ATTEND Surgery
DX: C50.919 Malignant neoplasm of unspecified site of unspecified female breast (principal); K21.9 Gastro-esophageal reflux disease without esophagitis; E78.49 Other hyperlipidemia; E55.9 Vitamin D deficiency, unspecified; K31.84 Gastroparesis; Z79.01 Long term (current) use of anticoagulants; Z79.899 Other long term (current) drug therapy; E87.6 Hypokalemia; F41.9 Anxiety disorder, unspecified; F32.9 Major depressive disorder, single episode, unspecified
CPT/HCPCS: 19303; 19357; 36415; 64450; 80048; 81025; 85025; 86850; 86900; 86901; 88307; 88309; 96365; 96366; 96372; 96375; 96376; C9290; J0131; J0690; J1100; J1170; J1644; J2250; J2270; J2405; J3010; L8600

== ENCOUNTER → 2020-12-17 | Outpatient (CLI) | payer OTHER ==
[~2020-12-17] MED LIST changes: +FERR325T3 PO; -HEPARIN SOD (PORCINE) 5000UNITS/ML 1ML VIAL/SYRINGE SQ ONE; -LR 1,000 ML IV ONE; +ONDA8TAB10 PO; +PROC10TA4 PO; -ceFAZolin SOD 2 GM in IV 1 EA IV ONE
--- NOTE | 2020-12-18 23:54 | ECHO ---
ECHOCARDIOGRAM DATE OF PROCEDURE: 12/17/2020 Age: 60 Gender: Female Height: 168 cm Weight: 212 pounds REFERRING PHYSICIAN: Dr. Essie Castañeda PATIENT LOCATION: Outpatient REASON FOR TESTING: Chemotherapy, drug monitoring. MEASUREMENTS: 2D Measurement IVS 1.2 cm LV 4.3 cm LVPW 1.2 cm LA 3.8 cm Aorta 3.4 cm DOPPLER MEASUREMENT Peak velocity across the aortic valve 1.3 m/s Peak velocity across the LVOT 1.0 m/s Mitral E 0.76 Mitral A 0.77 with a ratio of less than 1.0 2D COMMENTS: 1. Normal left ventricular size, wall thickness, and normal global left ventricular systolic function. Estimated left ventricular systolic ejection fraction is 55 to 65%. 2. Normal left atrium. Normal right atrium and right ventricle. 3. The atrial septum appeared to be normal without evidence of defect or shunt. 4. Normal aortic root. 5. No pericardial effusion seen. 6. The aortic valve, mitral valve, tricuspid valve appeared to be normal. The pulmonic valve and proximal pulmonary artery branches were not well visualized. 7. The inferior vena cava was not well visualized. DOPPLER: No significant valvular abnormalities detected. Abnormal relaxation pattern was noted across the mitral valve annulus consistent with features of grade 1 left ventricular diastolic dysfunction. IMPRESSION: 1. Normal global left ventricular systolic and diastolic function. 2. No significant valvular abnormalities.
== END ==
LOC: M CARPUL 09:44
PROVIDERS: ATTEND Internal Medicine Medical Oncology
DX: C50.912 Malignant neoplasm of unspecified site of left female breast (principal); Z79.899 Other long term (current) drug therapy

== ENCOUNTER → 2020-12-18 | Outpatient (CLI) | payer OTHER ==
[~2020-12-18] MED LIST changes: +AMIT24CA7 PO; +BACT800T5 PO; +CEPH500C PO; +CREO24CA PO; +CYTO200T VG; +DRIS50003 PO; +FAMO20TA5 PO; -FENO48TA7 JT; -FENO48TA7 PO; +FENO48TA8 JT; +FENO48TA8 PO; +FERR1TAB8 PO; +GASTROGRAFIN SOLUTION 30ML (Q9963) As Ordered ONE; +ISOVUE-370 76% 100ML VIAL As Ordered ONE; +LIDO1CRE42 TOP; -MAGN400T3 PO; +MAGN400T33 PO; +NAPR500T6 PO; +NORT25CA2 PO; +ONDA-84 PO; -ONDA8TAB10 PO; +OXYB5TAB10 PO; +OXYC-517 PO; +PAME10CA PO; +PERCOCET PO; +PHEN1TAB73 PO; -PROC10TA4 PO; +PROC10TA5 PO
== END ==
LOC: M RAD 08:50
PROVIDERS: ATTEND Internal Medicine Medical Oncology
DX: C50.912 Malignant neoplasm of unspecified site of left female breast (principal); K76.89 Other specified diseases of liver; R91.8 Other nonspecific abnormal finding of lung field
CPT/HCPCS: 71250; 74176; Q9963

== ENCOUNTER 2020-12-25 14:46 | Observation (INO) | payer OTHER ==
[~2020-12-25] VITALS: Ht 167.6 cm; Wt 97.1 kg
[~2020-12-25 14:46] MED LIST changes: -AMIT24CA7 PO; -BACT800T5 PO; -CEPH500C PO; -CREO24CA PO; -CYTO200T VG; -DRIS50003 PO; -FAMO20TA5 PO; +FENO48TA7 JT; +FENO48TA7 PO; -FENO48TA8 JT; -FENO48TA8 PO; -FERR1TAB8 PO; -GASTROGRAFIN SOLUTION 30ML (Q9963) As Ordered ONE; +HEPARIN SOD (PORCINE) 5000UNITS/ML 1ML VIAL/SYRINGE SQ SCH; -ISOVUE-370 76% 100ML VIAL As Ordered ONE; -LIDO1CRE42 TOP; +MAGN400T3 PO; -MAGN400T33 PO; -NAPR500T6 PO; -NORT25CA2 PO; -ONDA-84 PO; +ONDA8TAB10 PO; -OXYB5TAB10 PO; -OXYC-517 PO; -PAME10CA PO; -PERCOCET PO; -PHEN1TAB73 PO; +PROC10TA4 PO; -PROC10TA5 PO; +ceFAZolin SOD 2 GM in IV 1 EA IV SCH
[2020-12-25] MEDS ORDERED: propofoL 200 MG/20 ML VIAL As Ordered ONE (15:08)
[2020-12-25] MEDS ORDERED: dexameTHASONE 4 MG/ML 1ML VIAL (J1100 PER 1MG) As Ordered ONE (15:08)
[2020-12-25] MEDS ORDERED: ACETAMINOPHEN 1000MG 100ML IV BTL (OFIRMEV) (J0131 PER 10MG) As Ordered ONE (15:08)
[2020-12-25] MEDS ORDERED: fentaNYL 100 MCG/2 ML INJECTION (J3010) As Ordered ONE ×3 (15:08→18:28)
[2020-12-25] MEDS ORDERED: SUGAMMADEX SODIUM 500 MG/5 ML VIAL (BRIDION) As Ordered ONE (15:08)
[2020-12-25] MEDS ORDERED: LIDOCAINE 2% 100MG/5ML SDV (FOR ANES.) As Ordered ONE (15:08)
[2020-12-25] MEDS ORDERED: KETOROLAC 60MG 2ML VIAL As Ordered ONE (15:08)
[2020-12-25] MEDS ORDERED: ROCURONIUM BROMIDE 50 MG/5 ML VIAL As Ordered ONE (15:08)
[2020-12-25] MEDS ORDERED: ONDANSETRON 4MG/2ML VIAL As Ordered ONE (15:08)
[2020-12-25] MEDS ORDERED: MIDAZOLAM INJ 2MG/2ML VIAL (J2250 PER 1MG) As Ordered ONE (15:09)
[2020-12-25] MEDS ORDERED: LIDOCAINE 5% OINT 30GM TUBE As Ordered ONE (15:16)
[2020-12-25] MEDS ORDERED: ceFAZolin 2 GM/D5W 50 ML IV BAG (J0690 PER 500MG) As Ordered ONE (16:11)
[2020-12-25 16:32] LABS: HEMATOCRIT 32.2 % (36.0-47.0); MEAN CORPUSCULAR HEMOGLOBIN 25.9 pg (27.0-33.0); MEAN CORPUSCULAR HGB CONC 31.1 g/dl (32.0-36.5); MEAN CORPUSCULAR VOLUME 83.4 fl (80.0-96.0); PLATELET COUNT, AUTOMATED 299 10^3/uL (150-450); RED BLOOD COUNT 3.86 10^6/uL (4.00-5.40); WHITE BLOOD COUNT 7.2 10^3/uL (4.0-10.0)
[2020-12-25 16:43] LABS: INR 0.99; PROTHROMBIN TIME 13.3 SECONDS (12.5-14.3)
[2020-12-25] MEDS ORDERED: HEPARIN SOD (PORCINE) 5000UNITS/ML 1ML VIAL/SYRINGE As Ordered ONE (16:53)
[2020-12-25] MEDS ORDERED: ceFAZolin 1GM VIAL (J0690 PER 500MG) As Ordered ONE (16:55)
[2020-12-25 17:04] LABS: ALT/SGPT 13 U/L (12-78); BILIRUBIN,TOTAL 0.3 MG/DL (0.2-1.0); BLOOD UREA NITROGEN 20 MG/DL (7-18); CALCIUM LEVEL 8.8 MG/DL (8.5-10.1); CARBON DIOXIDE LEVEL 26 MEQ/L (21-32); CHLORIDE LEVEL 111 MEQ/L (98-107); CREATININE FOR GFR 0.95 MG/DL (0.55-1.30); GLOMERULAR FILTRATION RATE > 60.0 (>51); GLUCOSE, FASTING 80 MG/DL (70-100); POTASSIUM SERUM 3.8 MEQ/L (3.5-5.1); SODIUM LEVEL 142 MEQ/L (136-145); TOTAL PROTEIN 6.6 GM/DL (6.4-8.2)
[2020-12-25] MEDS: fentaNYL 100 MCG/2 ML INJECTION (J3010) IV PRN ×4 (18:27→19:15)
--- NOTE | 2020-12-25 18:41 | POST-OPPD ---
Postoperative Procedure Note Date Of Procedure: Dec 25, 2020 PREOPERATIVE DIAGNOSIS: Left breast collection. POSTOPERATIVE DIAGNOSIS: same FINDINGS: hematoma left breast PROCEDURE: Exploration left breast. Evacuation collection left breast. SURGEON: Dr Calero ENROLLMENT MANAGER: Dr Anna SPECIMENS: hematoma ESTIMATED BLOOD LOSS: no active blood loss. 400 cc hematoma ANESTHESIA: general REPLACED: none DRAINS: 10 mm KAVEH flat COMPLICATIONS: none POSTOPERATIVE CONDITION: stable CANDE CALERO DO Dec 25, 2020 18:41
--- NOTE | 2020-12-25 18:41 | ROOPDOC ---
[facility] Report Of Operation Report of Operation DATE OF PROCEDURE: 12/25/20 PREOPERATIVE DIAGNOSIS: Left breast collection. POSTOPERATIVE DIAGNOSIS: same FINDINGS: hematoma left breast PROCEDURE: Exploration left breast. Evacuation collection left breast. SURGEON: Dr Calero PEARL GLUE OPERATOR: Dr Anna SPECIMENS: hematoma ESTIMATED BLOOD LOSS: no active blood loss. 400 cc hematoma ANESTHESIA: general REPLACED: none DRAINS: 10 mm KAVEH flat COMPLICATIONS: none POSTOPERATIVE CONDITION: stable DESCRIPTION OF PROCEDURE: This is a 60-year-old female status post bilateral mastectomy with immediate reconstruction on December 01, 2020. Patient had uneventful recovery until 2 days before the surgery she had sudden increase in her left breast size. She had an attempted aspiration of collection with ultrasound-guided on December 24. It did not completely correct the problem therefore we opted to take her to the operating room for exploration left breast and evacuation collection. Risks, benefits, and alternatives were discussed with patient in detail. Informed consent was obtained. Patient was brought into the operating room, placed in supine position, preoperative antibiotics were given, general anesthesia is induced. Sequential stockings placed and on lower calves. 5000 units of heparin subcu given. She was prepped and draped in the usual sterile fashion. We have opened the existing inferior horizontal incision using #10 scalpel. Sharp dissection with electrocautery was performed until the pocket was opened inferiorly. Clinical Application Consultant is completely intact. We identified hematoma liquefied and solid. Cultures were taking. Clinical Application Consultant was deflated and removed. The hematoma was evacuated and pocket was irrigated with 2 L of normal saline solution. Lighted retractor was used for thorough examination of the pocket which is completely epithelialized and no active bleeding was identified. Clinical Application Consultant was placed back into the pocket. 10 mm Edward-Miranda drain was placed into the cavity through a separate stab incision. The pocket was closed with interrupted 2-0 Vicryl sutures and 3-0 Monocryl sutures followed by 3-0 Monocryl V-Loc suture. Clinical Application Consultant was filled with 300 cc of normal saline injectable solution. Prineo dressing placed on the incision, bulky dressing and a surgical bra. Patient extubated in operating room, and transferred to recovery room in stable condition. CANDE CALERO DO Dec 25, 2020 18:41
[2020-12-25] MEDS: LR 1,000 ML IV SCH (18:45)
[2020-12-25] MEDS ORDERED: ACETAMINOPHEN TAB 650MG DOSE (2X325MG) PO PRN (18:45)
[2020-12-25] MEDS ORDERED: PERCOCET 5MG/325MG TAB PO PRN (18:45)
[2020-12-25] MEDS ORDERED: ONDANSETRON 4MG/2ML VIAL IV PRN (18:50)
[2020-12-25] MEDS ORDERED: LR 1,000 ML IV SCH (18:50)
[2020-12-25] MEDS: oxyCODONE 5MG TAB PO PRN ×2 (18:52→19:24)
[2020-12-25 20:39] VITALS: BP 150/93
[2020-12-25] MEDS: PERCOCET 5MG/325MG TAB PO PRN (21:46)
[2020-12-25] MEDS: HEPARIN SOD (PORCINE) 5000UNITS/ML 1ML VIAL/SYRINGE SQ SCH (21:46)
[2020-12-25 21:49] VITALS: BP 143/85
[2020-12-25 23:23] VITALS: BP 141/86
[2020-12-26] MEDS: ceFAZolin SOD 1 GM in D5W MINI-BAG PLUS 50 ML IV SCH ×2 (00:47→08:42)
[2020-12-26 00:51] VITALS: BP 142/85
[2020-12-26 05:25] VITALS: BP 139/83
[2020-12-26] MEDS: HEPARIN SOD (PORCINE) 5000UNITS/ML 1ML VIAL/SYRINGE SQ SCH (08:42)
[2020-12-26] MEDS: LR 1,000 ML IV SCH (08:43)
[2020-12-26] MEDS ORDERED: ESCITALOPRAM OXALATE 10 MG TAB (LEXAPRO) PO ONE (09:00)
[2020-12-26] MEDS ORDERED: ATORVASTATIN 20 MG TAB PO SCH (09:00)
[2020-12-26] MEDS ORDERED: PANTOPRAZOLE 40MG TAB (PROTONIX) PO SCH (09:00)
--- NOTE | 2020-12-26 09:48 | IPNPDOC ---
Subjective General Date Seen: Dec 26, 2020 Subject Chief Complaint/History The patient is a 60-year-old female admitted with a reason for visit of Left Breast Exploration Excavation. S/p evacuation hematoma left breast POD 1. Doing well. Pain controlled. Ambulating, tolerating diet. Current Medications Current Medications Current Medications Medications (Trade) Dose Ordered Sig/Kacie Route PRN Reason Start Time Stop Time Status Last Admin Dose Admin Acetaminophen (Tylenol Tab) 650 mg Q6H PRN PO MILD PAIN (PS 1-4) 12/25/20 18:45 Atorvastatin Calcium (Lipitor) 40 mg DAILY PO 12/26/20 09:00 12/26/20 08:42 Cefazolin Sodium 1 gm/Dextrose 50 ml @ 100 mls/hr Q8H IV 12/26/20 01:00 12/26/20 08:42 Cefazolin Sodium/ Dextrose 2 gm/IV Miscellaneous Supplies 50 ml @ 75 mls/hr PREOP IV 12/25/20 06:00 12/25/20 16:16 DC 12/25/20 17:02 Fentanyl Citrate (Sublimaze) 25 mcg Q5MP PRN IV PAIN LEVEL 5-10 12/25/20 18:50 12/25/20 19:15 DC 12/25/20 19:15 Heparin Sodium (Porcine) (Heparin) 5,000 units PREOP SQ 12/25/20 06:00 12/25/20 16:16 DC 12/25/20 17:14 Heparin Sodium (Porcine) (Heparin) 5,000 units Q12H SQ 12/25/20 21:00 12/26/20 08:42 Lactated Ringer's 1,000 ml @ 75 mls/hr [id number] IV 12/25/20 18:45 12/26/20 08:43 Lactated Ringer's 1,000 ml @ 80 mls/hr [id number] IV 12/25/20 18:50 12/25/20 19:50 DC 12/25/20 18:53 Ondansetron HCl (ZOFRAN INJection) 4 mg Q4HP PRN IV NAUSEA OR VOMITING 12/25/20 18:50 12/25/20 19:50 DC Oxycodone HCl (Roxicodone, Oxyir) 5 mg ASDIRECTED PRN PO PAIN LEVEL 1-4 12/25/20 18:50 12/25/20 19:24 DC 12/25/20 19:24 Oxycodone/ Acetaminophen (Percocet 5mg/ 325mg Tablet) 1 tab Q4HP PRN PO PAIN LEVEL 4-7 12/25/20 18:45 12/26/20 05:30 Oxycodone/ Acetaminophen (Percocet 5mg/ 325mg Tablet) 2 tab Q4HP PRN PO PAIN LEVEL 8-10 12/25/20 18:45 12/25/20 21:46 Pantoprazole Sodium (Protonix) 40 mg DAILY PO 12/26/20 09:00 12/26/20 08:42 Allergies Coded Allergies: adhesive (Verified Allergy, Mild, redness, itching, 12/25/20) Objective Physical Examination Examination GENERAL APPEARANCE:Patient seen, laying in bed, awake, alert, and oriented. Comfortable, in no acute distress. SKIN: Warm and moist. BREAST: Left soft, non-tender incisions intact, electric distribution checker palpable. KAVEH drain Left chest: 40 cc/24 hr. Skin warm, pink. No ecchymosis. LUNGS: Clear to auscultation bilaterally. No wheezing appreciated. HEART: No chest wall abnormalities. Regular rate and rhythm with no murmurs appreciated. ABDOMEN: Abdomen is soft, non-tender, non-distended. EXTREMITIES: No edema identified. No calf tenderness. Vital Signs Vital Signs Date Time Temp Pulse Resp B/P (MAP) Pulse Ox O2 Delivery O2 Flow Rate FiO2 12/26/20 05:30 18 12/26/20 05:25 97.8 74 139/83 (101) 97 Room Air 12/25/20 21:49 1.0 I&Os I&O- Last 24 Hours up to 6 AM 12/26/20 05:59 Intake Total 1680 ml Output Total 260 ml Balance 1420 ml Laboratory Data Labs 24H Laboratory Tests 2 12/25/20 13:30: Coronavirus (COVID-19)(PCR) NEGATIVE 12/25/20 16:21: Nucleated Red Blood Cells % (auto) 0.0, Prothrombin Time 13.3, Prothromb Time International Ratio 0.99, Anion Gap 5L, Glomerular Filtration Rate > 60.0, Calcium Level 8.8, Total Bilirubin 0.3, Aspartate Amino Transf (AST/SGOT) 13, Alanine Aminotransferase (ALT/SGPT) 13, Alkaline Phosphatase 66, Total Protein 6.6, Albumin 3.0L, Albumin/Globulin Ratio 0.8L CBC/BMP Laboratory Tests 12/25/20 16:21 Microbiology Microbiology 12/25/20 Gram Stain - Final, Resulted 12/25/20 Abscess Culture, Resulted Pending 12/25/20 Anaerobic Culture, Resulted Pending Impression H/o Left breast cancer. Left breast exploration, evacuation hematoma POD 1. Stable for discharge. Instructions given. Dressings changed today. F/u plastic surgery 12/28/20 Hold Eliquis. Plan / VTE VTE Prophylaxis Ordered?: Yes CANDE CALERO DO Dec 26, 2020 09:48
[2020-12-26] MEDS: PERCOCET 5MG/325MG TAB PO PRN (10:14)
== END 2020-12-26 11:20 | disposition home or self-care (01) ==
LOC: M SDC 14:46 → M ED INP 14:47 → M MS5PR 21:41
PROVIDERS: ADMIT Plastic Surgery Surgery of the Hand; ATTEND Plastic Surgery Surgery of the Hand
DX: L76.34 Postprocedural seroma of skin and subcutaneous tissue following other procedure (principal); N64.89 Other specified disorders of breast; C50.912 Malignant neoplasm of unspecified site of left female breast; E66.9 Obesity, unspecified; K21.9 Gastro-esophageal reflux disease without esophagitis; K44.9 Diaphragmatic hernia without obstruction or gangrene; F32.9 Major depressive disorder, single episode, unspecified; Z79.01 Long term (current) use of anticoagulants; Z79.899 Other long term (current) drug therapy
CPT/HCPCS: 21501; 36415; 80053; 85027; 85610; 87070; 87075; 87205; 96365; 96366; 96372; J0131; J0690; J1100; J1644; J1885; J2250; J2405; J3010; U0002

== ENCOUNTER → 2020-12-28 | Outpatient (CLI) | payer OTHER ==
[~2020-12-28] MED LIST changes: -HEPARIN SOD (PORCINE) 5000UNITS/ML 1ML VIAL/SYRINGE SQ SCH; +ISOVUE-370 76% 100ML VIAL ONE; -ceFAZolin SOD 2 GM in IV 1 EA IV SCH
--- NOTE | 2020-12-28 10:45 | REP ---
INDICATION: HYDRONEPHROSIS W/ PANCRATIC FLUID COLLECTION. COMPARISON: 12/18/2020, 09/25/2020 CT TECHNIQUE: CT abdomen and pelvis performed without IV contrast. CT abdomen pelvis performed with IV contrast as well, following intravenous administration of 75 cc of Isovue 370. Sagittal, coronal and 3D MIP reconstruction images are performed. FINDINGS: The lung bases show minor curvilinear fibrotic change lateral basal segment left lower lobe. No effusion, infiltrate nodule or mass. Some minor cylindrical bronchiectatic changes are noted. There is minor pericardial thickening. No hiatal hernia. Surgical clips in the upper abdomen near the stomach and GE junction. Stomach is collapsed proximally. There is no sign of ascites in the upper abdomen. Low-density lesion in the right hepatic lobe. It is fairly low density, most likely cystic and unchanged. There are clips from prior cholecystectomy. There is some intrahepatic biliary dilatation. Common duct at abran hepatis is dilated as on the previous study and extending into the pancreatic head. This is unchanged. The pancreatic duct is mildly prominent. I do not see fluid adjacent to the body or tail the pancreas. No solid mass or adenopathy in those regions. Fluid collection in the pancreatic head is again seen with the multiple surgical clips from prior cholecystectomy adjacent and giving spray artifact. Appearance is grossly unchanged from previous study. The adrenal glands were normal. Left kidney is unremarkable. The right kidney shows pigtail stent coiled in the renal pelvis, the pelvis having a 3 cm AP diameter. Visually the hydronephrosis appears mildly greater than on the previous study. Stent courses down the right ureter into the bladder. The left ureter without dilatation or stone. Stool and gas are noted in the right colon to the distal left colon with a few scattered diverticula but without diverticulitis or colitis. Small bowel loops are grossly unremarkable. Appendix is seen and unremarkable. Lung window review of all CT slices shows no perforation or free air in the abdomen or pelvis. Right bone windows show lumbar and lower thoracic spine with age-related changes which appears stable ribs unremarkable. CT pelvis: The bony sacrum, pelvis and hips show some degenerative changes without destructive lesions or fracture. Uterus is anteverted, tilted towards the right side somewhat globular. Fullness of the left adnexa again seen. Ureteral stent coiled in the low right side of the bladder. There are multiple pelvic phleboliths and vascular calcifications. Bladder without calcified stone or mass. Distal left colon and sigmoid with diverticulosis but no diverticulitis. Rectum unremarkable. No ventral or inguinal hernia nor pathologic sized inguinal adenopathy. No pelvic ascites. IMPRESSION: 1. Right internal ureteral stent coiled proximally in the dilated renal pelvis and distally in the right-side of the bladder. There is moderate to severe hydronephrosis on the right side which is slightly increased from the previous study with an AP diameter about 3 cm from the renal pelvis today, 2.7 cm on previous exam. No definite stone. 2. Left kidney and ureter unremarkable without stone mass or hydronephrosis. 3. Status post cholecystectomy with common duct dilatation the abran hepatis and pancreatic head and pancreatic fluid collection appearance unchanged. Remainder of the pancreas body and tail was unremarkable and unchanged. 4. Fullness of the left adnexa in the pelvis and globular uterus tilted towards the right, unchanged. 5. No abdominal or pelvic adenopathy or ascites. No free air. Otherwise stable exam. <Electronically signed by Qamar Orta > 12/28/20 [id number]
== END ==
LOC: M PLAIMG 07:55
PROVIDERS: ATTEND Nurse Practitioner Women's Health
DX: N13.30 Unspecified hydronephrosis (principal); K86.89 Other specified diseases of pancreas; Z90.49 Acquired absence of other specified parts of digestive tract; Z96.0 Presence of urogenital implants
CPT/HCPCS: 74178; Q9967

== ENCOUNTER → 2021-01-06 | Outpatient (CLI) | payer OTHER ==
[~2021-01-06] MED LIST changes: +AMIT24CA7 PO; +BACT800T5 PO; +CEPH500C PO; +CREO24CA PO; +CYTO200T VG; +DRIS50003 PO; +FAMO20TA5 PO; -FENO48TA7 JT; -FENO48TA7 PO; +FENO48TA8 JT; +FENO48TA8 PO; +FERR1TAB8 PO; +ISOVUE-300 61% 50ML VIAL As Ordered ONE; -ISOVUE-370 76% 100ML VIAL ONE; +LIDO1CRE42 TOP; +LIDOCAINE 1% MDV 20ML VIAL As Ordered ONE; -MAGN400T3 PO; +MAGN400T33 PO; +MIDAZOLAM INJ 2MG/2ML VIAL (J2250 PER 1MG) As Ordered ONE; +NAPR500T6 PO; +NORT25CA2 PO; +NS 1,000 ML IV SCH; +ONDA-84 PO; -ONDA8TAB10 PO; +OXYB5TAB10 PO; +OXYC-517 PO; +PAME10CA PO; +PERCOCET PO; +PHEN1TAB73 PO; -PROC10TA4 PO; +PROC10TA5 PO; +ceFAZolin 2 GM/D5W 50 ML IV BAG (J0690 PER 500MG) As Ordered ONE; +ceFAZolin SOD 2 GM in IV 1 EA IV ONE; +diphenhydrAMINE 50MG/ML VIAL (J1200) As Ordered ONE; +fentaNYL 100 MCG/2 ML INJECTION As Ordered ONE
[2021-01-06 18:17] VITALS: BP 143/67
== END ==
LOC: M IRPRO 12:47
PROVIDERS: ATTEND Radiology Diagnostic Radiology
DX: C50.912 Malignant neoplasm of unspecified site of left female breast (principal)
CPT/HCPCS: 36561; 99152; 99153; C1769; C1788; C1894; J0690; J1200; J1642; J1644; J2250; J3010

== ENCOUNTER → 2021-01-26 | Outpatient (POV) | payer OTHER ==
[~2021-01-26] VITALS: Ht 167.6 cm; Wt 96.8 kg
[~2021-01-26] MED LIST changes: -BACT800T5 PO; -CREO24CA PO; -FAMO20TA5 PO; +FENO48TA7 JT; +FENO48TA7 PO; -FENO48TA8 JT; -FENO48TA8 PO; -FERR1TAB8 PO; -ISOVUE-300 61% 50ML VIAL As Ordered ONE; -LIDO1CRE42 TOP; -LIDOCAINE 1% MDV 20ML VIAL As Ordered ONE; +MAGN400T3 PO; -MAGN400T33 PO; -MIDAZOLAM INJ 2MG/2ML VIAL (J2250 PER 1MG) As Ordered ONE; -NAPR500T6 PO; -NORT25CA2 PO; -NS 1,000 ML IV SCH; -ONDA-84 PO; +ONDA8TAB10 PO; -OXYB5TAB10 PO; -OXYC-517 PO; -PERCOCET PO; -PHEN1TAB73 PO; +PROC10TA4 PO; -PROC10TA5 PO; -ceFAZolin 2 GM/D5W 50 ML IV BAG (J0690 PER 500MG) As Ordered ONE; -ceFAZolin SOD 2 GM in IV 1 EA IV ONE; -diphenhydrAMINE 50MG/ML VIAL (J1200) As Ordered ONE; -fentaNYL 100 MCG/2 ML INJECTION As Ordered ONE
[2021-01-26 09:40] VITALS: BP 140/90
--- NOTE | 2021-01-28 09:05 | IRPN ---
[facility] IR Progress Note IR Progress Note DATE: Jan 26, 2021 FOLLOW-UP: Patient is status post port placement. Patient states she is doing well, no pain, discharge at site fevers or chills. Port has been used without any issues. ON EXAMINATION: Port site appears to be healing well. Steri-Strips are gone. No redness swelling or discharge at site. IMPRESSION: Doing well status post port placement. No further follow-up scheduled unless initiated by patient and/or referring provider. Thank you for this referral Allergies Coded Allergies: adhesive (Verified Allergy, Mild, redness, itching, 12/25/20) VS,Fishbone, I+O VS, Fishbone, I+O Vital Signs Date Time Temp Pulse Resp B/P (MAP) Pulse Ox O2 Delivery O2 Flow Rate FiO2 01/26/21 09:40 97.7 80 20 140/90 (107) 98 Room Air SHA ABDALLA MD Jan 28, 2021 09:05
== END ==
LOC: M IRPOV 09:02
PROVIDERS: ATTEND Radiology Diagnostic Radiology
DX: Z45.2 Encounter for adjustment and management of vascular access device (principal)

== ENCOUNTER → 2021-02-02 | Outpatient (CLI) | payer OTHER ==
--- NOTE | 2021-02-02 15:24 | REP ---
INDICATION: BREAST CA W/ BONE PAIN. COMPARISON: Comparison CT study abdomen pelvis December 28, 2020. TECHNIQUE/RADIOTRACER AND DOSE: 22.0 mCi of Technetium-99m MDP was injected and standard whole-body bone scanning is acquired. FINDINGS: There is asymmetric renal uptake with considerable hydronephrosis affecting the right kidney. This corresponds with the December 28, 2020 CT study findings. Patient's history of ureteral stents on the right. There is normal uptake in the left kidney and urinary bladder. There is mild degenerative uptake pattern in the lower thoracic upper lumbar spine and in the knees. There is no evidence to suggest skeletal metastatic disease. IMPRESSION: No evidence of bony metastasis. Hydronephrosis noted incidentally in the right kidney moderate in degree. Mild degenerative disc uptake thoracic spine. <Electronically signed by Harry Nayak > 02/02/21 [id number]
== END ==
LOC: M RAD 09:36
PROVIDERS: ATTEND Internal Medicine Medical Oncology
DX: C50.919 Malignant neoplasm of unspecified site of unspecified female breast (principal); N13.30 Unspecified hydronephrosis
CPT/HCPCS: 78306; A9503

== ENCOUNTER 2021-03-19 17:03 | Inpatient (IN) | payer OTHER ==
[~2021-03-19] VITALS: Ht 167.6 cm; Wt 92.9 kg
[~2021-03-19 17:03] MED LIST changes: -FENO48TA7 JT; -FENO48TA7 PO; +FENO48TA8 JT; +FENO48TA8 PO; +LIDO1CRE42 TOP; -MAGN400T3 PO; +MAGN400T33 PO
[2021-03-19] MEDS ORDERED: NS 1,000 ML IV SCH (18:15)
[2021-03-19] MEDS ORDERED: MORPHINE 4 MG/ML 1ML VIAL/SYRINGE (J2270) IV ONE (18:20)
[2021-03-19] MEDS ORDERED: ONDANSETRON 4MG/2ML VIAL IV ONE (18:20)
[2021-03-19 18:45] LABS: HEMOGLOBIN 9.8 g/dl (12.0-15.5); MEAN CORPUSCULAR HEMOGLOBIN 24.4 pg (27.0-33.0); MEAN CORPUSCULAR HGB CONC 30.6 g/dl (32.0-36.5); MEAN CORPUSCULAR VOLUME 79.8 fl (80.0-96.0); PLATELET COUNT, AUTOMATED 157 10^3/uL (150-450); RED BLOOD COUNT 4.01 10^6/uL (4.00-5.40); WHITE BLOOD COUNT 2.4 10^3/uL (4.0-10.0)
[2021-03-19 19:10] LABS: ALBUMIN 2.9 GM/DL (3.2-5.2); ALT/SGPT 17 U/L (12-78); AMYLASE 30 U/L (25-115); BILIRUBIN,DIRECT < 0.1 MG/DL (0.0-0.2); BILIRUBIN,TOTAL 0.2 MG/DL (0.2-1.0); BLOOD UREA NITROGEN 14 MG/DL (7-18); CALCIUM LEVEL 9.6 MG/DL (8.5-10.1); CARBON DIOXIDE LEVEL 28 MEQ/L (21-32); CHLORIDE LEVEL 104 MEQ/L (98-107); CREATININE FOR GFR 0.76 MG/DL (0.55-1.30); GLOMERULAR FILTRATION RATE > 60.0 (>51); GLUCOSE, FASTING 82 MG/DL (70-100); LIPASE 51 U/L (73-393); SODIUM LEVEL 138 MEQ/L (136-145); TOTAL PROTEIN 6.8 GM/DL (6.4-8.2)
[2021-03-19 19:54] LABS: ATYPICAL LYMPH 1 % (0-5); BASOPHILS 5 % (0-1); LYMPHOCYTES 56 % (16-44); MONOCYTES 29 % (0-5); NEUTROPHILS 9 % (28-66); PLATELET ESTIMATE NORMAL (NORMAL)
[2021-03-19] MEDS ORDERED: ISOVUE-370 76% 100ML VIAL As Ordered ONE (20:14)
--- NOTE | 2021-03-19 20:53 | REPVR ---
PROCEDURE INFORMATION: Exam: CT Abdomen And Pelvis With Contrast Exam date and time: 03/19/2021 8:21 PM Age: 60 years old Clinical indication: Abdominal pain; Localized; Upper; Additional info: Upper abd pain TECHNIQUE: Imaging protocol: Computed tomography of the abdomen and pelvis with contrast. Radiation optimization: All CT scans at this facility use at least one of these dose optimization techniques: automated exposure control; mA and/or kV adjustment per patient size (includes targeted exams where dose is matched to clinical indication); or iterative reconstruction. Contrast material: ISOVUE 370; Contrast volume: 100 ml; Contrast route: INTRAVENOUS (IV); COMPARISON: CT ABD PELVIS W/O FOL BY WIT 12/28/2020 8:29 AM FINDINGS: Liver: 3.4 cm partially opacified hemangioma dome of the liver. Gallbladder and bile ducts: There has been a cholecystectomy. Dilatation of the intra and extrahepatic biliary radicles more dilated than typically demonstrated in the post cholecystectomy state. Common bile duct measures 2.3 cm maximally. No evidence of choledocholithiasis. Distal duct tapers at the ampullary. Further evaluation may be necessary to exclude the possibility of a stricture or stricturing neoplasm in the appropriate clinical setting. Correlation with biliary chemistries suggested. Pancreas: There is peripancreatic inflammatory stranding and fluid adjacent to the pancreatic body and tail which is boggy, and demonstrates a complex peripancreatic process distal to the tail measuring 2.8 x 3 cm. Findings most consistent with pancreatitis and possible phlegmon/ pseudocyst development. The possibility of a pancreatic neoplasm not excluded but considered less likely in view of the recently normal examination of the pancreas. Spleen: Normal. No splenomegaly. Adrenal glands: Normal. No mass. Kidneys and ureters: Mild hydroureteronephrosis on the right without evidence of obstructing mass or calculus. Mild thickening of the wall of the right renal pelvis and calyces. This patient is status post removal of a double pigtail stent catheter. Findings may be related to recent passage of a calculus. Clinical correlation to exclude other etiologies including infection or occult neoplasm suggested. Stomach and bowel: Mild diverticulosis is present in the left colon. No diverticulitis. Appendix: No evidence of appendicitis. Intraperitoneal space: Unremarkable. No free air. No significant fluid collection. Vasculature: The aortoiliac vessels demonstrate mild atherosclerotic calcification. Lymph nodes: Unremarkable. No enlarged lymph nodes. Urinary bladder: Unremarkable as visualized. Reproductive: 3.9 x 4.1 x 4.3 cm left adnexal mass unchanged in comparison to the prior study. As the lesion may represent a solid mass further characterization with nonemergent ultrasound suggested. 2.3 cm exophytic cystic lesion likely arising from the right ovary again redemonstrated in stable. Further evaluation with ultrasound suggested. Bones/joints: Moderate to severe central spinal stenosis L4-L5. Soft tissues: Bilateral breast implants. Diastasis of the mid rectus sheath. Small umbilical hernia without incarceration. IMPRESSION: 1. 3.4 cm partially opacified hemangioma dome of the liver. 2. There has been a cholecystectomy. 3. Dilatation of the intra and extrahepatic biliary radicles more dilated than typically demonstrated in the post cholecystectomy state. No evidence of choledocholithiasis. As described above further evaluation may be necessary to exclude the possibility of a stricture or stricturing neoplasm in the appropriate clinical setting. Correlation with biliary chemistries suggested. 4. Status post removal of a double pigtail stent in the right collecting system with residual dilatation of the right collecting system. Differential diagnosis as offered above. 5. Mild diverticulosis is present in the left colon. No diverticulitis. 6. There is peripancreatic inflammatory stranding and fluid adjacent to the pancreatic body and tail which is boggy, and demonstrates a complex peripancreatic process distal to the tail measuring 2.8 x 3 cm. Findings most consistent with pancreatitis and possible phlegmon/ pseudocyst development. The possibility of a pancreatic neoplasm not excluded but considered less likely in view of the recently normal examination of the pancreas. Electronically signed by: Cristóbal Noriega On 03/19/2021 20:52:49 PM
[2021-03-19] MEDS: D5W/0.9% SODIUM CHLORIDE 1,000 ML IV SCH (22:15)
[2021-03-19 22:48] LABS: LDH LACTATE DEHYDROGENASE 121 U/L (84-246); MAGNESIUM LEVEL 1.7 MG/DL (1.8-2.4)
[2021-03-19] MEDS ORDERED: MAGNESIUM *L&D* 4GM/100ML BAG (40MG/ML) IV ONE (23:00)
[2021-03-19] MEDS: MORPHINE 2 MG/ML 1ML VIAL (J2270) IV PRN (23:10)
[2021-03-19 23:55] LABS: RSV AMPLIFICATION NEGATIVE (NEGATIVE)
--- NOTE | 2021-03-20 00:16 | HPEPDOC ---
General Date of Admission Mar 19, 2021 at 21:47 Date of Service: Mar 19, 2021 Chief Complaint abdominal pain Source: Patient History of Present Illness Tanna Calvin is a 60-year-old female with significant medical history of breast cancer, multiple abdominal surgeries, and pancreatitis who presents with abdominal pain. Patient reports that abdominal pain has been going on for 3 weeks. She was encouraged to go to [facility] by her oncologist and was diagnosed with pancreatitis and ovarian mass. Patient went home and unfortunately without improvement came back tonight. Patient seen in no acute distress describes bilateral lower abdominal pain 8 out of 10 and associated back pain. She does associate nausea with the pain. She also endorses poor p.o., low-grade fevers at home as well as episode of syncope a few days ago. Patient reports that she syncopized -witnessed by family member when she stood up from recliner and had to step around the reclining bottom as she could not get it to close the chair and as she got up the next thing she remembers had been falling back against her family member and the family member reporting that she had passed out. Patient denies hitting head. Pt denies moreira, sinus congestion, sore throat, productive cough, sob, palpitations, chest pain, or sensory changes. CT abdomen pelvis completed with multiple findings to include pancreatitis with possible phlegmon with lower suspicion neoplasm in differential, 3.4 cm p artially opacified hemiangioma dome of the liver, diverticulosis without diverticulitis, mild hydroureteronephrosis on the right without evidence of obstruction, left adnexal mass 3.9 x 4.1 x 4.3 cm. Of note, patient afebrile, bycytopenic, and soft BP 106/57. Initial lab work WBCs 2.4, hemoglobin 9.8, lipase 51.. Home Medications Scheduled Atorvastatin Calcium (Atorvastatin Calcium) 40 Mg Tablet, 40 MG PO DAILY, (Reported) Docusate Sodium (Docusate Sodium) 100 Mg Capsule, 100 MG PO BID, (Reported) Ergocalciferol (Vitamin D2) (Vitamin D2) 50,000 Units Cap, 50,000 UNITS PO QWEEK, (Reported) SATURDAYS Escitalopram Oxalate (Lexapro) 20 Mg Tablet, 20 MG PO DAILY, (Reported) Famotidine (Famotidine) 20 Mg Tablet, 20 MG PO QHS, (Reported) Fenofibrate (Fenofibrate) 54 Mg Tablet, 54 MG PO DAILY, (Reported) Ferrous Sulfate (Ferrous Sulfate) 325 Mg Tablet, 325 MG PO 3XW, (Reported) MONDAY, MONDAY AND MONDAY Lidocaine/Prilocaine (Lidocaine-Prilocaine Cream) 2.5%/2.5% Cream..g., 1 DOSE TOP ASDIRECTED Apply dime size to port area. Do not rub in, cover with saran wrap to protect clothing. Magnesium Oxide (Magnesium) 400 Mg Capsule, 400 MG PO DAILY, (Reported) Nortriptyline HCl (Nortriptyline HCl) 25 Mg Capsule, 25 MG PO QHS, (Reported) Pantoprazole Sodium (Pantoprazole Sodium) 40 Mg Tablet.dr, 40 MG PO DAILY, (Reported) Trospium Chloride (Trospium Chloride) 20 Mg Tablet, 20 MG PO BID, (Reported) Scheduled PRN Naproxen (Naproxen) 500 Mg Tablet.dr, 500 MG PO BID PRN for MILD/MODERATE PAIN (PS 1-7), (Reported) Ondansetron HCl (Ondansetron HCl) 8 Mg Tablet, 8 MG PO Q12H PRN for NAUSEA OR VOMITING Oxycodone HCl (Oxycodone HCl) 5 Mg Tablet, 5 MG PO Q4H PRN for SEVERE PAIN (PS 8-10), (Reported) Allergies Coded Allergies: adhesive (Verified Allergy, Mild, redness, itching, 12/25/20) Past Medical History Medical History Hx portal vein thrombus hx SBO Breast CA- sees Dr. Castañeda, 3 doses chemo last 03/10/21, next monmar 24 Chronic low back pain DEGENERATIVE DISC DISEASE BILATERAL CARPAL TUNNEL-ORTHOPEDICS GERD HIATAL HERNIA ELEVATED CHOLESTEROL STRESS INCONTINENCE-UROLOGY ALLERGIC RHINITIS INCISIONAL HERNIA GASTROPARESIS DIVERTICULITIS ROTATOR CUFF TEAR LEFT SHOULDER-SEES ORTHO Surgical History port placement L chest j-tube placement and removal 2020 HERNIA REPAIR - UMBILICAL AGE 9 ACID REFLUX SURGERY - FOLLOWED BY LACERATED LIVER, AND HOLE IN STOMACH 1996 CARPAL TUNNEL ON RIGHT WRIST 1989 COLONOSCOPY UPPER ENDOSCOPY [facility] 06/16/2014 TUBAL LIGATION 1984 HERNIA REPAIR 04/2017 INJECTION LEFT SHOULDER FOR ROTATOR CUFF TEAR 12/2018 Family History Significant Family History: Cancer, Heart disease, Hypertension FATHER: , [place] MOTHER: , EMPHYSEMA SIBLINGS: ALIVE, 1 SISTER FROM BRAIN CA AND 1 BROTHER DROWNED SON(S): ALIVE DAUGHTER(S): ALIVE Social History * Smoker: Denies Alcohol: rarely (annually, holidays) Recent Travel/Sick Contacts: Denies: Recent travel, Recent sick contacts Psychosocial History: No pertinent psych hx A-FIB/CHADSVASC A-FIB History Current/History of A-Fib/PAF?: No Current PO Anticoag Therapy: No Review of Systems Constitutional: Reports: Fever; Denies: Chills, Night Sweats Eyes: Denies: Pain, Vision change ENT: Denies: Head Aches, Ear Pain, Dysphagia Skin: Denies: Rash, Lesions, Breakdown Pulmonary: Denies: Dyspnea, Cough Cardiovascular: Denies: Chest Pain, Palpitations, Orthopnea, Paroxysmal Noc. Dyspnea, Lt Headedness Gastrointestinal: Reports: Nausea, Abdominal Pain (lower), Constipation; Denies: Vomiting, Diarrhea Genitourinary: Denies: Dysuria, Frequency, Incontinence, Retention Hematologic: Denies: Bruising, Bleeding Excessively Musculoskeletal: Reports: Back Pain; Denies: Neck Pain, Joint Pain, Muscle Pain, Spasms Neurological: Denies: Weakness, Numbness, Change in speech, Confusion Psych: Reports: Mood Normal; Denies: Depression, Memory Issues Physical Examination General Exam: Positive: Alert, Cooperative, No Acute Distress Eye Exam: Positive: PERRLA, Conjunctiva & lids normal, EOMI; Negative: Sclera icteric ENT Exam: Positive: Atraumatic, Mucous membr. moist/pink, Pharynx Normal Neck Exam: Positive: Supple; Negative: JVD, thyromegaly Chest Exam: Positive: Clear to auscultation, Normal air movement Heart Exam: Positive: Rate Normal, Regular Rhythm, Normal S1, Normal S2; Negative: Murmurs, Rubs Telemetry: Positive: No significant arrhythmia Abdomen Exam: Positive: Normal bowel sounds, Soft, Tenderness (bilateral lower abdominal area, worse LLQ); Negative: Hepatospenomegaly Extremity Exam: Positive: Normal pulses; Negative: Clubbing, Cyanosis, Edema Skin Exam: Positive: Nl turgor and temperature; Negative: Breakdown, Lesion Neuro Exam: Positive: Normal Gait, Normal Speech, Cranial Nerves 3-12 NL, Reflexes 2+ Psych Exam: Positive: Mental status NL, Mood NL, Oriented x 3 Vital Signs Vital Signs Date Time Temp Pulse Resp B/P (MAP) Pulse Ox O2 Delivery O2 Flow Rate FiO2 03/19/21 23:46 18 Room Air 03/19/21 23:10 91 03/19/21 21:00 106/57 (73) 03/19/21 20:48 82 03/19/21 17:27 96.8 Laboratory Data Labs 24H Laboratory Tests 2 03/19/21 18:29: Neutrophils (%) (Auto) , Neutrophils # (Auto) , Nucleated Red Blood Cells % (auto) 0.0, Neutrophils 9L, Lymphocytes (Manual) 56H, Monocytes (Manual) 29H, Basophils (Manual) 5H, Atypical Lymphocytes 1, Red Blood Cell Morphology NORMAL, Platelet Estimate NORMAL, Anion Gap 6L, Glomerular Filtration Rate > 60.0, Calcium Level 9.6, Magnesium Level 1.7L, Total Bilirubin 0.2, Direct Bilirubin < 0.1, Aspartate Amino Transf (AST/SGOT) 9, Alanine Aminotransferase (ALT/SGPT) 17, Alkaline Phosphatase 111, Lactate Dehydrogenase 121, Total Protein 6.8, Albumin 2.9L, Albumin/Globulin Ratio 0.7L, Amylase Level 30, Lipase 51L 03/19/21 22:25: 03/19/21 23:13: CBC/BMP Laboratory Tests 03/19/21 18:29 Microbiology Microbiology 03/19/21 Blood Culture, Received Pending 03/19/21 Blood Culture, Received Pending Assessment/Plan 1. Acute Pancreatitis: Of note, patient with significant history of pancreatitis due to gallstones in 1980s, recently this year episode of pancreatitis with small bowel obstruction in July 2020. Per patient no known increased risk for pancreatitis reportedly from her oncologist with her chemo regimen. -NPO, bowel rest -Aggressive IV hydration: pt has received several boluses and D5NS started given pt NPO; will check BG -Symptom management/supportive care with antiemetics and analgesics -A.m. lab -Will hold any pancreatitis inducing medications on home medicines -Consider GI consult if pt without improvement -Lipase 51, Pt with abdominal pain and + findings on CT; there is mention for ?underlying neoplasm; pt may benefit from onc recommendations for work up inpt vs oupt. 2. Mild hydroureter nephrosis of the right: Without evidence of obstructing mass or calculus. -Patient follows urology outpatient and has ureteral stent history. Consider urology consult in a.m. for feedback. 3. Bicytopenia in patient with recent chemo and active breast cancer: -Monitor for signs symptoms of infection. -Blood cultures have been sent. UA pending. -Consider if need for empiric coverage pending clinical course. 3. Reported home syncopal event: In setting of poor p.o. and abdominal pain with above. -Plan for Tele, orthostatics. Patient is getting aggressive fluid hydration given above. -Consider differential. 4. HLD: -Check lipid panel, atorvastatin held given side effect profile may induce pancreatitis 5. Depression: -Continue escitalopram, nortriptyline 6. GI ppx: - PPI IV 7. CT findin.9 x 4.1 x 4.3 cm left adnexal mass. Unchanged from previous CT comparison per radiology. Recommendation for nonemergent ultrasound follow-up. Encourage patient follow-up. These findings were discussed with her. DVT prophylaxis: Lovenox subcu CODE STATUS: Full code Disposition planning: Home once patient able to tolerate p.o. Plan / VTE VTE Prophylaxis Ordered?: Yes AUDIE PARISI NP Mar 19, 2021 23:51 NATE NI MD Mar 22, 2021 04:48
[2021-03-20] MEDS: MAG SULF 1GM/100ML (MAG RUN) X 2 DOSES (2GM TOTAL) IV SCH ×4 (00:22→00:55)
[2021-03-20] MEDS ORDERED: NS 1,000 ML IV ONE ×2 (00:25→01:25)
[2021-03-20] MEDS ORDERED: FERR1TAB8 PO (00:42)
[2021-03-20] MEDS ORDERED: OXYC-517 PO (00:42)
[2021-03-20] MEDS ORDERED: NORT25CA2 PO (00:42)
[2021-03-20] MEDS ORDERED: NAPR500T6 PO (00:42)
[2021-03-20] MEDS ORDERED: HOME MED LIST COMPLETE! XX SCH (00:45)
[2021-03-20 01:55] VITALS: BP 114/51
[2021-03-20] MEDS ORDERED: oxyCODONE 5MG TAB PO PRN ×2 (01:55→08:10)
[2021-03-20] MEDS: NORTRIPTYLINE 25 MG CAP PO SCH ×2 (02:06→20:45)
[2021-03-20 06:00] VITALS: BP_SYST 113; BP_SYST 116; BP_SYST 117; BP_DIAS 52; BP_DIAS 71; BP_DIAS 72
[2021-03-20] MEDS: MORPHINE 2 MG/ML 1ML VIAL (J2270) IV PRN ×3 (06:07→20:45)
[2021-03-20 06:14] LABS: HEMATOCRIT 29.3 % (36.0-47.0); HEMOGLOBIN 9.2 g/dl (12.0-15.5); MEAN CORPUSCULAR HEMOGLOBIN 24.9 pg (27.0-33.0); MEAN CORPUSCULAR HGB CONC 31.4 g/dl (32.0-36.5); MEAN CORPUSCULAR VOLUME 79.4 fl (80.0-96.0); PLATELET COUNT, AUTOMATED 124 10^3/uL (150-450); RED BLOOD COUNT 3.69 10^6/uL (4.00-5.40)
[2021-03-20 06:35] LABS: ALBUMIN 2.2 GM/DL (3.2-5.2); ALT/SGPT 19 U/L (12-78); BILIRUBIN,TOTAL 0.2 MG/DL (0.2-1.0); BLOOD UREA NITROGEN 9 MG/DL (7-18); CALCIUM LEVEL 8.2 MG/DL (8.5-10.1); CARBON DIOXIDE LEVEL 27 MEQ/L (21-32); CHLORIDE LEVEL 107 MEQ/L (98-107); CREATININE FOR GFR 0.72 MG/DL (0.55-1.30); GLOMERULAR FILTRATION RATE > 60.0 (>51); GLUCOSE, FASTING 104 MG/DL (70-100); POTASSIUM SERUM 4.1 MEQ/L (3.5-5.1); SODIUM LEVEL 138 MEQ/L (136-145); TOTAL PROTEIN 6.4 GM/DL (6.4-8.2)
[2021-03-20 06:42] LABS: BLOOD UREA NITROGEN 9 MG/DL (7-18); CALCIUM LEVEL 8.3 MG/DL (8.5-10.1); CARBON DIOXIDE LEVEL 27 MEQ/L (21-32); CHLORIDE LEVEL 109 MEQ/L (98-107); CREATININE FOR GFR 0.67 MG/DL (0.55-1.30); GLOMERULAR FILTRATION RATE > 60.0 (>51); GLUCOSE, FASTING 106 MG/DL (70-100); LIPASE 35 U/L (73-393); POTASSIUM SERUM 4.2 MEQ/L (3.5-5.1); SODIUM LEVEL 140 MEQ/L (136-145)
[2021-03-20 07:18] LABS: BASOPHILS 2 % (0-1); EOSINOPHILS 1 % (0-3); LYMPHOCYTES 23 % (16-44); METAMYELOCYTES 6 % (0-0); MONOCYTES 33 % (0-5); MYELOCYTES 1 % (0-0); NEUTROPHILS 17 % (28-66)
[2021-03-20 07:19] LABS: ANISOCYTOSIS 2+; MICROCYTOSIS 1+; PLATELET ESTIMATE DECREASED (NORMAL)
[2021-03-20] MEDS ORDERED: MORPHINE 2 MG/ML 1ML VIAL (J2270) IV PRN ×2 (08:10→10:20)
[2021-03-20] MEDS: D5W/0.9% SODIUM CHLORIDE 1,000 ML IV SCH ×2 (09:16→17:08)
[2021-03-20] MEDS: PANTOPRAZOLE 40MG VIAL (C9113 PER 1) IV SCH (09:16)
[2021-03-20] MEDS: ENOXAPARIN 40MG/0.4ML SYRINGE (J1650 PER 10MG) SC SCH (09:16)
[2021-03-20] MEDS: ESCITALOPRAM OXALATE 10 MG TAB (LEXAPRO) PO SCH (12:09)
[2021-03-20] MEDS: ACETAMINOPHEN TAB 650MG DOSE (2X325MG) PO PRN (12:10)
[2021-03-20 14:00] VITALS: BP 110/59
--- NOTE | 2021-03-20 18:34 | IPNPDOC ---
Date Seen The patient was seen on 03/20/21. Progress Note SUBJECTIVE: Pain uncontrolled. Meds adjusted. The patient denies chest pain, increased shortness of breath, fevers, chills, nausea. OBJECTIVE: VITAL SIGNS: Please see below PHYSICAL EXAMINATION: CONSTITUTIONAL: No acute distress, resting comfortably, AAO x 3 EYES: PERRLA, EOM intact HENT, MOUTH: Normocephalic, atraumatic, moist mucous membranes, alopecia NECK: SUPPLE, no JVD, no lymphadenopathy, no carotid bruit CV: Regular rate and rhythm, S1S2 normal, no murmurs/rubs/gallops RESPIRATORY: Clear to auscultation bilaterally, no rales/rhonchi/wheezes GI: Left upper and lower abd pain on palpation, BS positive in 4 quadrants, soft, nondistended, no rebound or guarding, no organomegaly : Deferred MUSCULOSKELETAL: Normal ROM. No cyanosis, clubbing, swelling, joint deformity, extremity edema INTEGUMENTARY: Intact, no rashes, no lesions, no erythema NEUROLOGIC: Cranial Nerves II-XII are intact, no focal deficits PSYCHIATRIC: Mood and affect are normal CURRENT MEDICATIONS: Please see below LABORATORY DATA: Please see below IMAGING: No new ASSESSMENT: 60 y/o F admitted for recurrent pancreatitis. PLAN: #Acute Pancreatitis, recurrent -history of pancreatitis due to gallstones in 1980s, recently this year episode of pancreatitis with small bowel obstruction in July 2020. Per patient no known increased risk for pancreatitis reportedly from her oncologist with her chemo regimen. -NPO, bowel rest, IVF -Symptom management/supportive care with antiemetics and analgesics -Will hold any pancreatitis inducing medications on home medicines, f/u lipid panel -Consider GI consult if pt without improvement -Adjusted pain regimen today. #Mild hydroureter nephrosis of the right: Without evidence of obstructing mass or calculus. -Patient follows urology outpatient and has ureteral stent history -Cr wnl and urinating well #Pancytopenia in recent chemo and active breast cancer patient -Monitor for signs symptoms of infection. -Blood cultures have been sent. -States to have been getting neupogen as o/p -Consider hematology consultation #Syncope likely vasovagal vs. hypotension related (poor po intake) -No syncope while here, no events on tele -C/wTele, orthostatics. -No neurological changes #HLD: -statin held #Depression: -Continue escitalopram, nortriptyline #GI ppx: - PPI IV #CT findin.9 x 4.1 x 4.3 cm left adnexal mass. Unchanged from previous CT comparison per radiology. Recommendation for nonemergent ultrasound follow-up. Encourage patient follow-up. These findings were discussed with her. Disposition planning: Home once patient able to tolerate p.o. VS, I&O, 24H, Fishbone Vital Signs/I&O Vital Signs Date Time Temp Pulse Resp B/P (MAP) Pulse Ox O2 Delivery O2 Flow Rate FiO2 03/20/21 14:45 16 03/20/21 14:00 98.3 88 110/59 (76) 96 Room Air I&O- Last 24 Hours up to 6 AM 03/20/21 06:00 Intake Total 1900 ml Output Total 400 ml Balance 1500 ml Laboratory Data 24H LABS Laboratory Tests 2 03/19/21 18:29: Neutrophils (%) (Auto) , Neutrophils # (Auto) , Nucleated Red Blood Cells % (auto) 0.0, Neutrophils 9L, Lymphocytes (Manual) 56H, Monocytes (Manual) 29H, Basophils (Manual) 5H, Atypical Lymphocytes 1, Red Blood Cell Morphology NORMAL, Platelet Estimate NORMAL, Anion Gap 6L, Glomerular Filtration Rate > 60.0, Calcium Level 9.6, Magnesium Level 1.7L, Total Bilirubin 0.2, Direct Bilirubin < 0.1, Aspartate Amino Transf (AST/SGOT) 9, Alanine Aminotransferase (ALT/SGPT) 17, Alkaline Phosphatase 111, Lactate Dehydrogenase 121, Total Protein 6.8, Albumin 2.9L, Albumin/Globulin Ratio 0.7L, Amylase Level 30, Lipase 51L 03/19/21 22:25: Coronavirus (COVID-19)(PCR) NEGATIVE, Influenza Type A (RT-PCR) NEGATIVE, Influenza Type B (RT-PCR) NEGATIVE, Respiratory Syncytial Virus (PCR) NEGATIVE 03/19/21 23:13: Lactic Acid Level 0.8 03/20/21 03:06: Bedside Glucose (Misc Panel) 93 03/20/21 05:36: Immature Granulocyte % (Auto) , Neutrophils (%) (Auto) , Neutrophils # (Auto) , Nucleated Red Blood Cells % (auto) 0.0, Neutrophils 17L, Band Neutrophils 17H, Lymphocytes (Manual) 23, Monocytes (Manual) 33H, Eosinophils (Manual) 1, Basophils (Manual) 2H, Metamyelocytes 6H, Myelocytes 1H, Anisocytosis 2+, Microcytosis 1+, Platelet Estimate DECREASED, Anion Gap 4L, Glomerular Filtration Rate > 60.0, Calcium Level 8.2L, Total Bilirubin 0.2, Aspartate Amino Transf (AST/SGOT) 15, Alanine Aminotransferase (ALT/SGPT) 19, Alkaline Phosphatase 90, Total Protein 6.4, Albumin 2.2#L, Albumin/Globulin Ratio 0.5L, Lipase 35L 03/20/21 06:00: Bedside Glucose (Misc Panel) 96 03/20/21 06:08: Urine Color YELLOW, Urine Appearance HAZY, Urine pH 5.0, Urine Specific [place] 1.031, Urine Protein NEGATIVE, Urine Glucose (UA) NEGATIVE, Urine Ketones NEGATIVE, Urine Blood NEGATIVE, Urine Nitrite NEGATIVE, Urine Bilirubin NEGATIVE, Urine Urobilinogen 0.2, Urine Leukocyte Esterase NEGATIVE, Urine WBC (Auto) 8H, Urine RBC (Auto) 0, Urine Hyaline Casts (Auto) 0, Urine Bacteria (Auto) NEGATIVE, Urine Squamous Epithelial Cells 3, Urine Mucus (Auto) SMALL, Urine Sperm (Auto) 03/20/21 12:41: Bedside Glucose (Misc Panel) 113H 03/20/21 17:59: Bedside Glucose (Misc Panel) 94 CBC/BMP Laboratory Tests 03/19/21 18:29 03/20/21 05:36 Microbiology Microbiology 03/19/21 Blood Culture, Received Pending 03/19/21 Blood Culture, Received Pending Jojo Yang MD Mar 20, 2021 18:34
--- NOTE | 2021-03-20 20:04 | IPNPDOC ---
Text Note Date of Service Significant event NOTE Patient with interest in trial advance diet. She has been tolerating ice chips at the bedside. Will transition to clears to monitor patient response tonight. VS,Fishbone, I+O VS, Fishbone, I+O Laboratory Tests 03/20/21 05:36 Vital Signs Date Time Temp Pulse Resp B/P (MAP) Pulse Ox O2 Delivery O2 Flow Rate FiO2 03/20/21 14:45 16 03/20/21 14:00 98.3 88 110/59 (76) 96 Room Air I&O- Last 24 Hours up to 6 AM 03/20/21 06:00 Intake Total 1900 ml Output Total 400 ml Balance 1500 ml AUDIE PARISI NP Mar 20, 2021 20:04
[2021-03-20 20:20] LABS: CHOLESTEROL RISK RATIO 5.416 (<5)
[2021-03-20] MEDS: ONDANSETRON 4MG/2ML VIAL IV PRN (20:45)
[2021-03-20 22:00] VITALS: BP 143/66
[2021-03-21] MEDS: MORPHINE 2 MG/ML 1ML VIAL (J2270) IV PRN ×3 (03:22→22:50)
[2021-03-21] MEDS: D5W/0.9% SODIUM CHLORIDE 1,000 ML IV SCH ×3 (04:15→22:50)
[2021-03-21 06:00] VITALS: BP 127/66
[2021-03-21 06:09] LABS: BASO # 0.1 10^3/uL (0.0-0.2); BASO % 1.2 % (0.0-1.0); HEMATOCRIT 26.2 % (36.0-47.0); HEMOGLOBIN 8.2 g/dl (12.0-15.5); LYMPH # 0.8 10^3/uL (1.5-5.0); LYMPH % 11.6 % (24.0-44.0); MEAN CORPUSCULAR HEMOGLOBIN 25.2 pg (27.0-33.0); MEAN CORPUSCULAR HGB CONC 31.3 g/dl (32.0-36.5); MEAN CORPUSCULAR VOLUME 80.6 fl (80.0-96.0); MONO % 24.8 % (2.0-8.0); NEUTROPHILS # 3.4 10^3/uL (1.5-8.5); NEUTROPHILS % 51.7 % (36.0-66.0); PLATELET COUNT, AUTOMATED 116 10^3/uL (150-450); RED BLOOD COUNT 3.25 10^6/uL (4.00-5.40); WHITE BLOOD COUNT 6.5 10^3/uL (4.0-10.0)
[2021-03-21 06:30] VITALS: BP_SYST 114; BP_SYST 115; BP_DIAS 62; BP_DIAS 63; BP_DIAS 66
[2021-03-21 06:30] LABS: BLOOD UREA NITROGEN 5 MG/DL (7-18); CARBON DIOXIDE LEVEL 27 MEQ/L (21-32); CHLORIDE LEVEL 107 MEQ/L (98-107); CHOLESTEROL LEVEL 148 MG/DL (<200); CHOLESTEROL RISK RATIO 4.774 (<5); CREATININE FOR GFR 0.63 MG/DL (0.55-1.30); GLOMERULAR FILTRATION RATE > 60.0 (>51); GLUCOSE, FASTING 118 MG/DL (70-100); HDL CHOLESTEROL 31 MG/DL (>40); LDL CHOLESTEROL 97 MG/DL (<100); NON-HDL-C 117 MG/DL; POTASSIUM SERUM 3.6 MEQ/L (3.5-5.1); SODIUM LEVEL 139 MEQ/L (136-145); TRIGLYCERIDES LEVEL 101 MG/DL (<150)
[2021-03-21] MEDS: ONDANSETRON 4MG/2ML VIAL IV PRN ×2 (06:35→22:50)
[2021-03-21 07:08] LABS: MONO # 1.6 10^3/uL (0.0-0.8)
[2021-03-21] MEDS: ENOXAPARIN 40MG/0.4ML SYRINGE (J1650 PER 10MG) SC SCH (11:50)
[2021-03-21] MEDS: ESCITALOPRAM OXALATE 10 MG TAB (LEXAPRO) PO SCH (11:50)
[2021-03-21] MEDS: PANTOPRAZOLE 40MG VIAL (C9113 PER 1) IV SCH (11:50)
[2021-03-21 14:00] VITALS: BP 94/60
--- NOTE | 2021-03-21 14:26 | IPNPDOC ---
Date Seen The patient was seen on 03/21/21. Progress Note SUBJECTIVE: Pain uncontrolled, increased IV morphine dosing. MRI with pancreatic protocol in the AM. The patient denies chest pain, increased shortness of breath, fevers, chills, nausea. OBJECTIVE: VITAL SIGNS: Please see below PHYSICAL EXAMINATION: CONSTITUTIONAL: No acute distress, resting comfortably, AAO x 3 EYES: PERRLA, EOM intact HENT, MOUTH: Normocephalic, atraumatic, moist mucous membranes, alopecia NECK: SUPPLE, no JVD, no lymphadenopathy, no carotid bruit CV: Regular rate and rhythm, S1S2 normal, no murmurs/rubs/gallops RESPIRATORY: Clear to auscultation bilaterally, no rales/rhonchi/wheezes GI: Left upper and lower abd pain on palpation- similar pain on palpation of left flank as well- not worsened, BS positive in 4 quadrants, soft, nondistended, no rebound or guarding, no organomegaly : Deferred MUSCULOSKELETAL: Normal ROM. No cyanosis, clubbing, swelling, joint deformity, extremity edema INTEGUMENTARY: Intact, no rashes, no lesions, no erythema NEUROLOGIC: Cranial Nerves II-XII are intact, no focal deficits PSYCHIATRIC: Mood and affect are normal CURRENT MEDICATIONS: Please see below LABORATORY DATA: Please see below IMAGING: F/u MRI abd with contrast (with pancreatic protocol) on 03/22/21 ASSESSMENT: 60 y/o F admitted for recurrent pancreatitis. PLAN: #Acute Pancreatitis, recurrent -Pain uncontrolled at times, incr pain meds -history of pancreatitis due to gallstones in 1980s, recently this year episode of pancreatitis with small bowel obstruction in July 2020. Per patient no known increased risk for pancreatitis reportedly from her oncologist with her chemo regimen. -NPO, bowel rest, D5 IVF -Symptom management/supportive care with antiemetics and analgesics -Will hold any pancreatitis inducing medications on home medicines -MRI abdomen with contrast (pancreatic protocol) ordered for 03/22/21 -Consider GI consult based off results of MRI #Mild hydroureter nephrosis of the right: Without evidence of obstructing mass or calculus. -Patient follows urology outpatient and has ureteral stent history -Cr wnl and urinating well #Pancytopenia in recent chemo and active breast cancer patient -Monitor for signs symptoms of infection but blood cultures NG -WBC improving -States to have been getting neupogen as o/p -Consider hematology consultation #Syncope likely vasovagal vs. hypotension related (poor po intake) -No syncope while here, no events on tele -C/w tele, orthostatics. -No neurological changes #HLD: -statin held #Depression: -Continue escitalopram, nortriptyline #GI ppx: - PPI IV #CT findin.9 x 4.1 x 4.3 cm left adnexal mass. -Unchanged from previous CT comparison per radiology. Recommendation for nonemergent ultrasound follow-up. Encourage patient follow-up. These findings were discussed with her. Disposition planning: Home once patient able to tolerate p.o. VS, I&O, 24H, Fishbone Vital Signs/I&O Vital Signs Date Time Temp Pulse Resp B/P (MAP) Pulse Ox O2 Delivery O2 Flow Rate FiO2 03/21/21 13:12 16 03/21/21 06:30 87 115/66 (82) 92 114/63 (80) 95 114/62 (79) 03/21/21 06:00 98.4 95 Room Air I&O- Last 24 Hours up to 6 AM 03/21/21 05:59 Intake Total 0 ml Output Total 1500 ml Balance -1500 ml Laboratory Data 24H LABS Laboratory Tests 2 03/20/21 17:59: Bedside Glucose (Misc Panel) 94 03/20/21 19:35: Triglycerides Level 157H, Total Cholesterol 195, LDL Cholesterol 128H, Non-HDL Cholesterol (LDL + VLDL) 159, Total HDL Cholesterol 36L, Cholesterol/HDL Ratio 5.416H 03/20/21 23:19: Bedside Glucose (Misc Panel) 142H 03/21/21 05:34: Triglycerides Level 101, Total Cholesterol 148, LDL Cholesterol 97, Non-HDL Chol esterol (LDL + VLDL) 117, Total HDL Cholesterol 31L, Cholesterol/HDL Ratio 4.774, Immature Granulocyte % (Auto) 10.7H, Neutrophils (%) (Auto) 51.7, Lymphocytes (%) (Auto) 11.6L, Monocytes (%) (Auto) 24.8H, Eosinophils (%) (Auto) 0.0, Basophils (%) (Auto) 1.2H, Neutrophils # (Auto) 3.4, Lymphocytes # (Auto) 0.8L, Monocytes # (Auto) 1.6H, Eosinophils # (Auto) 0.0, Basophils # (Auto) 0.1, Nucleated Red Blood Cells % (auto) 0.0, Anion Gap 5L, Glomerular Filtration Rate > 60.0, Calcium Level 8.0L 03/21/21 11:50: Bedside Glucose (Misc Panel) 100 CBC/BMP Laboratory Tests 03/21/21 05:34 Microbiology Microbiology 03/19/21 Blood Culture - Preliminary, Resulted No growth after 24 hours . All specim... 03/19/21 Blood Culture - Preliminary, Resulted No growth after 24 hours . All specim... Jojo Yang MD Mar 21, 2021 14:26
[2021-03-21 20:00] VITALS: BP 127/68
[2021-03-21] MEDS: NORTRIPTYLINE 25 MG CAP PO SCH (21:09)
[2021-03-21] MEDS: ACETAMINOPHEN TAB 650MG DOSE (2X325MG) PO PRN (22:55)
[2021-03-22 06:00] VITALS: BP 109/58
[2021-03-22 06:10] LABS: BASO # 0.1 10^3/uL (0.0-0.2); BASO % 0.8 % (0.0-1.0); HEMATOCRIT 28.1 % (36.0-47.0); HEMOGLOBIN 8.6 g/dl (12.0-15.5); LYMPH # 0.7 10^3/uL (1.5-5.0); LYMPH % 7.1 % (24.0-44.0); MEAN CORPUSCULAR HEMOGLOBIN 24.7 pg (27.0-33.0); MEAN CORPUSCULAR HGB CONC 30.6 g/dl (32.0-36.5); MEAN CORPUSCULAR VOLUME 80.7 fl (80.0-96.0); MONO # 1.6 10^3/uL (0.0-0.8); MONO % 16.1 % (2.0-8.0); NEUTROPHILS % 61.1 % (36.0-66.0); PLATELET COUNT, AUTOMATED 132 10^3/uL (150-450); RED BLOOD COUNT 3.48 10^6/uL (4.00-5.40); WHITE BLOOD COUNT 9.9 10^3/uL (4.0-10.0)
[2021-03-22 06:33] LABS: BLOOD UREA NITROGEN 4 MG/DL (7-18); CALCIUM LEVEL 7.9 MG/DL (8.5-10.1); CARBON DIOXIDE LEVEL 30 MEQ/L (21-32); CHLORIDE LEVEL 109 MEQ/L (98-107); GLOMERULAR FILTRATION RATE > 60.0 (>51); GLUCOSE, FASTING 101 MG/DL (70-100); POTASSIUM SERUM 3.5 MEQ/L (3.5-5.1); SODIUM LEVEL 142 MEQ/L (136-145)
[2021-03-22] MEDS: ONDANSETRON 4MG/2ML VIAL IV PRN ×3 (06:53→20:03)
[2021-03-22] MEDS: MORPHINE 2 MG/ML 1ML VIAL (J2270) IV PRN (06:53)
[2021-03-22] MEDS: PANTOPRAZOLE 40MG VIAL (C9113 PER 1) IV SCH (09:21)
[2021-03-22] MEDS: D5W/0.9% SODIUM CHLORIDE 1,000 ML IV SCH ×2 (09:21→20:04)
[2021-03-22] MEDS: ENOXAPARIN 40MG/0.4ML SYRINGE (J1650 PER 10MG) SC SCH (09:21)
[2021-03-22] MEDS: ESCITALOPRAM OXALATE 10 MG TAB (LEXAPRO) PO SCH (12:53)
[2021-03-22] MEDS: MORPHINE 4 MG/ML 1ML VIAL/SYRINGE (J2270) IV PRN ×2 (12:53→20:04)
[2021-03-22 14:00] VITALS: BP 137/67
--- NOTE | 2021-03-22 14:13 | IPNPDOC ---
Date Seen The patient was seen on 03/22/21. Progress Note SUBJECTIVE: Unable to do MRI with pancreatic protocol due to breast expanders . Pain uncontrolled and meds adjusted. She has had some nausea today. The patient denies chest pain, increased shortness of breath, fevers, chills. OBJECTIVE: VITAL SIGNS: Please see below PHYSICAL EXAMINATION: CONSTITUTIONAL: Resting in bedd, AAO x 3 EYES: PERRLA, EOM intact HENT, MOUTH: Normocephalic, atraumatic, moist mucous membranes, alopecia NECK: SUPPLE, no JVD, no lymphadenopathy, no carotid bruit CV: Regular rate and rhythm, S1S2 normal, no murmurs/rubs/gallops RESPIRATORY: Clear to auscultation bilaterally, no rales/rhonchi/wheezes GI: Left upper and lower abd pain on palpation- similar pain on palpation of left flank -similar to pain from 03/21/21, BS positive in 4 quadrants, soft, nondistended, no rebound, no organomegaly : Deferred MUSCULOSKELETAL: Normal ROM. No cyanosis, clubbing, swelling, joint deformity, extremity edema INTEGUMENTARY: Intact, no rashes, no lesions, no erythema NEUROLOGIC: Cranial Nerves II-XII are intact, no focal deficits PSYCHIATRIC: Mood and affect are normal CURRENT MEDICATIONS: Please see below LABORATORY DATA: Please see below IMAGING: See imaging ASSESSMENT: 60 y/o F admitted for recurrent pancreatitis. PLAN: #Acute Pancreatitis, recurrent -Pain uncontrolled at times, incr pain meds -History of pancreatitis due to gallstones in 1980s, recently this year episode of pancreatitis with small bowel obstruction in July 2020. Per patient no known increased risk for pancreatitis reportedly from her oncologist with her chemo regimen. -NPO, bowel rest, D5 IVF -Symptom management/supportive care with antiemetics and analgesics -Will hold any pancreatitis inducing medications -MRI abdomen with contrast (pancreatic protocol) unable to be performed due to breast expanders -GI consulted today #Mild hydroureter nephrosis of the right: Without evidence of obstructing mass or calculus. -Patient follows urology outpatient and has ureteral stent history -Cr wnl and urinating well #Pancytopenia in recent chemo and active breast cancer patient -Monitor for signs symptoms of infection but blood cultures NG -WBC now wnl, H/H stable -States to have been getting neupogen as o/p -Consider hematology consultation #Syncope likely vasovagal vs. hypotension related (poor po intake) -No syncope while here, no events on tele -C/w tele, orthostatics. -No neurological changes #HLD: -statin held #Depression: -Continue escitalopram, nortriptyline #GI ppx: - PPI IV #CT findin.9 x 4.1 x 4.3 cm left adnexal mass. -Unchanged from previous CT comparison per radiology. Recommendation for nonemergent ultrasound follow-up. Encourage patient follow-up. These findings were discussed with her. Disposition planning: GI consulted today. Home once patient able to tolerate p.o. VS, I&O, 24H, Fishbone Vital Signs/I&O Vital Signs Date Time Temp Pulse Resp B/P (MAP) Pulse Ox O2 Delivery O2 Flow Rate FiO2 03/22/21 13:18 18 03/22/21 06:00 98.4 80 109/58 (75) 99 Room Air I&O- Last 24 Hours up to 6 AM 03/22/21 06:00 Intake Total 1350 ml Output Total 2075 ml Balance -725 ml Laboratory Data 24H LABS Laboratory Tests 2 03/21/21 17:29: Bedside Glucose (Misc Panel) 100 03/21/21 23:44: Bedside Glucose (Misc Panel) 105 03/22/21 05:38: Bedside Glucose (Misc Panel) 105 03/22/21 05:54: Immature Granulocyte % (Auto) 14.9H, Neutrophils (%) (Auto) 61.1, Lymphocytes (%) (Auto) 7.1L, Monocytes (%) (Auto) 16.1H, Eosinophils (%) (Auto) 0.0, Basophils (%) (Auto) 0.8, Neutrophils # (Auto) 6.0, Lymphocytes # (Auto) 0.7L, Monocytes # (Auto) 1.6H, Eosinophils # (Auto) 0.0, Basophils # (Auto) 0.1, Nucleated Red Blood Cells % (auto) 0.0, Anion Gap 3L, Glomerular Filtration Rate > 60.0, Calcium Level 7.9L 03/22/21 12:25: Bedside Glucose (Misc Panel) 74 CBC/BMP Laboratory Tests 03/22/21 05:54 Microbiology Microbiology 03/19/21 Blood Culture - Preliminary, Resulted No Growth after 48 hours. All Specime... 03/19/21 Blood Culture - Preliminary, Resulted No Growth after 48 hours. All Specime... Jojo Yang MD Mar 22, 2021 14:13
--- NOTE | 2021-03-22 14:14 | IPNPDOC ---
Date Seen The patient was seen on 03/22/21. Progress Note SUBJECTIVE: Pain uncontrolled, increased IV morphine again today PRN. MRI with pancreatic protocol unable n the AM. The patient denies chest pain, increased shortness of breath, fevers, chills, nausea. OBJECTIVE: VITAL SIGNS: Please see below PHYSICAL EXAMINATION: CONSTITUTIONAL: No acute distress, resting comfortably, AAO x 3 EYES: PERRLA, EOM intact HENT, MOUTH: Normocephalic, atraumatic, moist mucous membranes, alopecia NECK: SUPPLE, no JVD, no lymphadenopathy, no carotid bruit CV: Regular rate and rhythm, S1S2 normal, no murmurs/rubs/gallops RESPIRATORY: Clear to auscultation bilaterally, no rales/rhonchi/wheezes GI: Left upper and lower abd pain on palpation- similar pain on palpation of left flank as well- not worsened, BS positive in 4 quadrants, soft, nondistended, no rebound or guarding, no organomegaly : Deferred MUSCULOSKELETAL: Normal ROM. No cyanosis, clubbing, swelling, joint deformity, extremity edema INTEGUMENTARY: Intact, no rashes, no lesions, no erythema NEUROLOGIC: Cranial Nerves II-XII are intact, no focal deficits PSYCHIATRIC: Mood and affect are normal CURRENT MEDICATIONS: Please see below LABORATORY DATA: Please see below IMAGING: F/u MRI abd with contrast (with pancreatic protocol) on 03/22/21 ASSESSMENT: 60 y/o F admitted for recurrent pancreatitis. PLAN: #Acute Pancreatitis, recurrent -Pain uncontrolled at times, incr pain meds -history of pancreatitis due to gallstones in 1980s, recently this year episode of pancreatitis with small bowel obstruction in July 2020. Per patient no known increased risk for pancreatitis reportedly from her oncologist with her chemo regimen. -NPO, bowel rest, D5 IVF -Symptom management/supportive care with antiemetics and analgesics -Will hold any pancreatitis inducing medications on home medicines -MRI abdomen with contrast (pancreatic protocol) ordered for 03/22/21 -Consider GI consult based off results of MRI #Mild hydroureter nephrosis of the right: Without evidence of obstructing mass or calculus. -Patient follows urology outpatient and has ureteral stent history -Cr wnl and urinating well #Pancytopenia in recent chemo and active breast cancer patient -Monitor for signs symptoms of infection but blood cultures NG -WBC improving -States to have been getting neupogen as o/p -Consider hematology consultation #Syncope likely vasovagal vs. hypotension related (poor po intake) -No syncope while here, no events on tele -C/w tele, orthostatics. -No neurological changes #HLD: -statin held #Depression: -Continue escitalopram, nortriptyline #GI ppx: - PPI IV #CT findin.9 x 4.1 x 4.3 cm left adnexal mass. -Unchanged from previous CT comparison per radiology. Recommendation for nonemergent ultrasound follow-up. Encourage patient follow-up. These findings were discussed with her. Disposition planning: Home once patient able to tolerate p.o. VS, I&O, 24H, Fishbone Vital Signs/I&O Vital Signs Date Time Temp Pulse Resp B/P (MAP) Pulse Ox O2 Delivery O2 Flow Rate FiO2 03/22/21 09:19 18 03/22/21 06:00 98.4 80 109/58 (75) 99 Room Air I&O- Last 24 Hours up to 6 AM 03/22/21 06:00 Intake Total 1350 ml Output Total 2075 ml Balance -725 ml Laboratory Data 24H LABS Laboratory Tests 2 03/21/21 17:29: Bedside Glucose (Misc Panel) 100 03/21/21 23:44: Bedside Glucose (Misc Panel) 105 03/22/21 05:38: Bedside Glucose (Misc Panel) 105 03/22/21 05:54: Immature Granulocyte % (Auto) 14.9H, Neutrophils (%) (Auto) 61.1, Lymphocytes (%) (Auto) 7.1L, Monocytes (%) (Auto) 16.1H, Eosinophils (%) (Auto) 0.0, Basophils (%) (Auto) 0.8, Neutrophils # (Auto) 6.0, Lymphocytes # (Auto) 0.7L, Monocytes # (Auto) 1.6H, Eosinophils # (Auto) 0.0, Basophils # (Auto) 0.1, Nucleated Red Blood Cells % (auto) 0.0, Anion Gap 3L, Glomerular Filtration Rate > 60.0, Calcium Level 7.9L 03/22/21 12:25: Bedside Glucose (Misc Panel) 74 CBC/BMP Laboratory Tests 03/22/21 05:54 Microbiology Microbiology 03/19/21 Blood Culture - Preliminary, Resulted No Growth after 48 hours. All Specime... 03/19/21 Blood Culture - Preliminary, Resulted No Growth after 48 hours. All Specime... Jojo Yang MD Mar 22, 2021 14:11
[2021-03-22] MEDS: ACETAMINOPHEN TAB 650MG DOSE (2X325MG) PO PRN (20:03)
[2021-03-22] MEDS: NORTRIPTYLINE 25 MG CAP PO SCH (20:03)
[2021-03-22 22:00] VITALS: BP 128/74
[2021-03-23] MEDS: MORPHINE 4 MG/ML 1ML VIAL/SYRINGE (J2270) IV PRN (04:48)
[2021-03-23] MEDS: ACETAMINOPHEN TAB 650MG DOSE (2X325MG) PO PRN ×3 (04:48→21:11)
[2021-03-23] MEDS: D5W/0.9% SODIUM CHLORIDE 1,000 ML IV SCH ×2 (05:55→16:19)
[2021-03-23 06:00] VITALS: BP 127/73
[2021-03-23] MEDS: ENOXAPARIN 40MG/0.4ML SYRINGE (J1650 PER 10MG) SC SCH (08:51)
[2021-03-23] MEDS: PANTOPRAZOLE 40MG VIAL (C9113 PER 1) IV SCH (08:51)
[2021-03-23] MEDS: ONDANSETRON 4MG/2ML VIAL IV PRN ×3 (08:52→22:50)
[2021-03-23] MEDS: MORPHINE 10 MG/ML 1ML VIAL (J2270) IV PRN ×4 (08:52→22:51)
[2021-03-23 12:09] LABS: HEMATOCRIT 29.6 % (36.0-47.0); HEMOGLOBIN 9.1 g/dl (12.0-15.5); LYMPH % 6.5 % (24.0-44.0); MEAN CORPUSCULAR HGB CONC 30.7 g/dl (32.0-36.5); MEAN CORPUSCULAR VOLUME 81.3 fl (80.0-96.0); PLATELET COUNT, AUTOMATED 206 10^3/uL (150-450); RED BLOOD COUNT 3.64 10^6/uL (4.00-5.40); WHITE BLOOD COUNT 13.8 10^3/uL (4.0-10.0)
[2021-03-23 12:10] LABS: BASO # 0.1 10^3/uL (0.0-0.2); BASO % 0.5 % (0.0-1.0); LYMPH # 0.9 10^3/uL (1.5-5.0); MONO # 1.8 10^3/uL (0.0-0.8); MONO % 13.1 % (2.0-8.0); NEUTROPHILS # 9.8 10^3/uL (1.5-8.5)
[2021-03-23 13:02] LABS: BLOOD UREA NITROGEN 3 MG/DL (7-18); CALCIUM LEVEL 8.6 MG/DL (8.5-10.1); CARBON DIOXIDE LEVEL 30 MEQ/L (21-32); CHLORIDE LEVEL 108 MEQ/L (98-107); CREATININE FOR GFR 0.62 MG/DL (0.55-1.30); GLOMERULAR FILTRATION RATE > 60.0 (>51); GLUCOSE, FASTING 90 MG/DL (70-100); POTASSIUM SERUM 3.4 MEQ/L (3.5-5.1); SODIUM LEVEL 142 MEQ/L (136-145)
[2021-03-23] MEDS: ESCITALOPRAM OXALATE 10 MG TAB (LEXAPRO) PO SCH (13:30)
[2021-03-23 14:00] VITALS: BP 125/72
--- NOTE | 2021-03-23 15:30 | IPNPDOC ---
Text Note Date of Service The patient was seen on 03/23/21. NOTE SUBJECTIVE: -Was unable to do MRI with pancreatic protocol due to breast expanders now we are pursuing potential transfer for EUS vs. [facility] brief transfer for EUS with plan to return to [facility] inpatient. -Continues to have severe abdominal pain, mildly better this AM, however completely cannot tolerate PO at this time with pain worsening with any PO -The patient denies chest pain, increased shortness of breath, fevers, chills. OBJECTIVE: VITAL SIGNS: Please see below CONSTITUTIONAL: Ill appearing, AAO x 3, no distress EYES: PERRLA, EOM intact HENT, MOUTH: Normocephalic, atraumatic, moist mucous membranes, alopecia NECK: SUPPLE, no JVD, no lymphadenopathy, no carotid bruit CV: Regular rate and rhythm, S1S2 normal, no murmurs/rubs/gallops RESPIRATORY: Clear to auscultation bilaterally, no rales/rhonchi/wheezes GI: Abdominal pain on palpation, worst on left side throughout, normoactive bowel sounds in all 4 quadrants, soft, nondistended, no rebound, no organo megaly MUSCULOSKELETAL: Normal ROM. No cyanosis, clubbing, swelling, joint deformity, extremity edema INTEGUMENTARY: Intact, no rashes, no lesions, no erythema NEUROLOGIC: Cranial Nerves II-XII are intact, no focal deficits PSYCHIATRIC: Mood and affect are normal CURRENT MEDICATIONS: Please see below LABORATORY DATA: Reviewed WBC 9.9 Hgb 8.6 platelets 132 na 142 K 3.5 Cr 0.7 IMAGING: CT A/P with IV contrast: Liver: 3.4 cm partially opacified hemangioma dome of the liver. Gallbladder and bile ducts: There has been a cholecystectomy. Dilatation of the intra and extrahepatic biliary radicles more dilated than typically demonstrated in the post cholecystectomy state. Common bile duct measures 2.3 cm maximally. No evidence of choledocholithiasis. Distal duct tapers at the ampullary. Further evaluation may be necessary to exclude the possibility of a stricture or stricturing neoplasm in the appropriate clinical setting. Correlation with biliary chemistries suggested. Pancreas: There is peripancreatic inflammatory stranding and fluid adjacent to the pancreatic body and tail which is boggy, and demonstrates a complex peripancreatic process distal to the tail measuring 2.8 x 3 cm. Findings most consistent with pancreatitis and possible phlegmon/ pseudocyst development. The possibility of a pancreatic neoplasm not excluded but considered less likely in view of the recently normal examination of the pancreas. Spleen: Normal. No splenomegaly. Adrenal glands: Normal. No mass. Kidneys and ureters: Mild hydroureteronephrosis on the right without evidence of obstructing mass or calculus. Mild thickening of the wall of the right renal pelvis and calyces. This patient is status post removal of a double pigtail stent catheter. Findings may be related to recent passage of a calculus. Clinical correlation to exclude other etiologies including infection or occult neoplasm suggested. Stomach and bowel: Mild diverticulosis is present in the left colon. No diverticulitis. Appendix: No evidence of appendicitis. Intraperitoneal space: Unremarkable. No free air. No significant fluid collection. Vasculature: The aortoiliac vessels demonstrate mild atherosclerotic calcification. Lymph nodes: Unremarkable. No enlarged lymph nodes. Urinary bladder: Unremarkable as visualized. Reproductive: 3.9 x 4.1 x 4.3 cm left adnexal mass unchanged in comparison to the prior study. As the lesion may represent a solid mass further characterization with nonemergent ultrasound suggested. 2.3 cm exophytic cystic lesion likely arising from the right ovary again redemonstrated in stable. Further evaluation with ultrasound suggested. Bones/joints: Moderate to severe central spinal stenosis L4-L5. Soft tissues: Bilateral breast implants. Diastasis of the mid rectus sheath. Small umbilical hernia without incarceration. IMPRESSION: 1. 3.4 cm partially opacified hemangioma dome of the liver. 2. There has been a cholecystectomy. 3. Dilatation of the intra and extrahepatic biliary radicles more dilated than typically demonstrated in the post cholecystectomy state. No evidence of choledocholithiasis. As described above further evaluation may be necessary to exclude the possibility of a stricture or stricturing neoplasm in the appropriate clinical setting. Correlation with biliary chemistries suggested. 4. Status post removal of a double pigtail stent in the right collecting system with residual dilatation of the right collecting system. Differential diagnosis as offered above. 5. Mild diverticulosis is present in the left colon. No diverticulitis. 6. There is peripancreatic inflammatory stranding and fluid adjacent to the pancreatic body and tail which is boggy, and demonstrates a complex peripancreatic process distal to the tail measuring 2.8 x 3 cm. Findings most consistent with pancreatitis and possible phlegmon/ pseudocyst development. The possibility of a pancreatic neoplasm not excluded but considered less likely in view of the recently normal examination of the pancreas. ASSESSMENT: 60-year-old W with significant medical history of breast cancer, multiple abdominal surgeries, and pancreatitis who presented with persisting abdominal pain shortly after being diagnosed in [facility] with pancreatitis and an ovarian mass? whose course has been c/b persisting severe abdominal pain without any tolerance of PO and peripancreatic inflammatory stranding and fluid adjacent to the pancreatic body and tail which is boggy, and demonstrates a complex peripancreatic process distal to the tail measuring 2.8 x 3 cm c/f pancreatitis 2/ possible phlegmon/ pseudocyst development vs. potential mass, with inability to do an MRI due to breast expanders, now looking to transfer for EUS. PLAN: #Acute Pancreatitis, recurrent possibly c/b potential pseudocyst/phlegmon formation vs. mass -Pain adequately controlled, will continue current regimen -History of pancreatitis due to gallstones in , recently this year episode of pancreatitis with small bowel obstruction in July 2020. Per patient no known increased risk for pancreatitis reportedly from her oncologist with her chemo regimen. -NPO, bowel rest, continue D5NS -Symptom management/supportive care with antiemetics and analgesics -Unable to get MRI abdomen with contrast (pancreatic protocol) due to breast expanders, GI recommended transfer for EUS, looking for beds vs. [facility] brief transfer for imaging with plan to return to [facility] inpatient. #Mild hydroureter nephrosis of the right: Without evidence of obstructing mass or calculus. -Patient follows urology outpatient and has ureteral stent history -Cr wnl -I/Os #Recent leukopenia i/s/o recent chemo for active breast cancer -blood cultures NG -WBC now with leukocytosis, reportedly was getting neupogen per prior hospitalist? likely more like neulasta as o/p #Syncope likely vasovagal vs. hypotension related (poor po intake) -No syncope while here, no events on tele -C/w tele -No neurological changes #HLD: -statin held #Depression: -Continue escitalopram, nortriptyline #GI ppx: - PPI IV #CT findin.9 x 4.1 x 4.3 cm left adnexal mass. -Unchanged from previous CT comparison per radiology. Recommendation for nonemergent ultrasound follow-up. Encourage patient follow-up. These findings were discussed with her. Disposition planning: continue IV fluids and pain management, will continue to pursue transfer for EUS to better deliniate pseudocyst/phlegmon development vs. potential mass VS,Best, I+O VS, Best I+O Laboratory Tests 03/23/21 11:04 Vital Signs Date Time Temp Pulse Resp B/P (MAP) Pulse Ox O2 Delivery O2 Flow Rate FiO2 03/23/21 14:05 18 03/23/21 09:18 Room Air 03/23/21 06:00 98.1 92 127/73 (91) 91 I&O- Last 24 Hours up to 6 AM 03/23/21 06:00 Intake Total 150 ml Output Total 1500 ml Balance -1350 ml JOAN SEGOVIA MD Mar 23, 2021 15:30
[2021-03-23] MEDS: NORTRIPTYLINE 25 MG CAP PO SCH (21:11)
[2021-03-23 22:00] VITALS: BP 133/72
[2021-03-24] MEDS: MORPHINE 4 MG/ML 1ML VIAL/SYRINGE (J2270) IV PRN ×2 (04:25→15:47)
[2021-03-24] MEDS: D5W/0.9% SODIUM CHLORIDE 1,000 ML IV SCH ×2 (04:26→12:52)
[2021-03-24 06:00] VITALS: BP 120/61
[2021-03-24] MEDS: PANTOPRAZOLE 40MG VIAL (C9113 PER 1) IV SCH (08:34)
[2021-03-24] MEDS: ENOXAPARIN 40MG/0.4ML SYRINGE (J1650 PER 10MG) SC SCH (08:34)
[2021-03-24 09:12] LABS: HEMOGLOBIN 8.6 g/dl (12.0-15.5); MEAN CORPUSCULAR HEMOGLOBIN 25.1 pg (27.0-33.0); MEAN CORPUSCULAR HGB CONC 30.7 g/dl (32.0-36.5); MEAN CORPUSCULAR VOLUME 81.6 fl (80.0-96.0); PLATELET COUNT, AUTOMATED 252 10^3/uL (150-450); RED BLOOD COUNT 3.43 10^6/uL (4.00-5.40); WHITE BLOOD COUNT 14.5 10^3/uL (4.0-10.0)
[2021-03-24 09:43] LABS: ALBUMIN 1.8 GM/DL (3.2-5.2); ALT/SGPT 21 U/L (12-78); BILIRUBIN,TOTAL 0.1 MG/DL (0.2-1.0); BLOOD UREA NITROGEN 4 MG/DL (7-18); CALCIUM LEVEL 7.9 MG/DL (8.5-10.1); CARBON DIOXIDE LEVEL 32 MEQ/L (21-32); CHLORIDE LEVEL 106 MEQ/L (98-107); GLOMERULAR FILTRATION RATE > 60.0 (>51); GLUCOSE, FASTING 97 MG/DL (70-100); LIPASE 21 U/L (73-393); POTASSIUM SERUM 3.2 MEQ/L (3.5-5.1); SODIUM LEVEL 141 MEQ/L (136-145); TOTAL PROTEIN 4.9 GM/DL (6.4-8.2)
[2021-03-24] MEDS: ESCITALOPRAM OXALATE 10 MG TAB (LEXAPRO) PO SCH (12:52)
[2021-03-24 14:00] VITALS: BP 137/86
--- NOTE | 2021-03-24 14:30 | IPNPDOC ---
Text Note Date of Service The patient was seen on 03/24/21. NOTE SUBJECTIVE: -Continues to have significant abdominal pain, has been NPO for >24h -The patient denies chest pain, increased shortness of breath, fevers, chills. OBJECTIVE: VITAL SIGNS: Please see below CONSTITUTIONAL: Ill appearing, AAO x 3, no distress EYES: PERRLA, EOM intact HENT, MOUTH: Normocephalic, atraumatic, moist mucous membranes, alopecia NECK: SUPPLE, no JVD, no lymphadenopathy, no carotid bruit CV: Regular rate and rhythm, S1S2 normal, no murmurs/rubs/gallops RESPIRATORY: Clear to auscultation bilaterally, no rales/rhonchi/wheezes GI: Abdominal pain on palpation, worst on left side throughout, normoactive bowel sounds in all 4 quadrants, soft, nondistended, no rebound, no organomegaly MUSCULOSKELETAL: Normal ROM. No cyanosis, clubbing, swelling, joint deformity, extremity edema INTEGUMENTARY: Intact, no rashes, no lesions, no erythema NEUROLOGIC: Cranial Nerves II-XII are intact, no focal deficits PSYCHIATRIC: Mood and affect are normal CURRENT MEDICATIONS: Please see below LABORATORY DATA: Reviewed Pending AM labs IMAGING: CT A/P with IV contrast: Liver: 3.4 cm partially opacified hemangioma dome of the liver. Gallbladder and bile ducts: There has been a cholecystectomy. Dilatation of the intra and extrahepatic biliary radicles more dilated than typically demonstrated in the post cholecystectomy state. Common bile duct measures 2.3 cm maximally. No evidence of choledocholithiasis. Distal duct tapers at the ampullary. Further evaluation may be necessary to exclude the possibility of a stricture or stricturing neoplasm in the appropriate clinical setting. Correlation with biliary chemistries suggested. Pancreas: There is peripancreatic inflammatory stranding and fluid adjacent to the pancreatic body and tail which is boggy, and demonstrates a complex peripancreatic process distal to the tail measuring 2.8 x 3 cm. Findings most consistent with pancreatitis and possible phlegmon/ pseudocyst development. The possibility of a pancreatic neoplasm not excluded but considered less likely in view of the recently normal examination of the pancreas. Spleen: Normal. No splenomegaly. Adrenal glands: Normal. No mass. Kidneys and ureters: Mild hydroureteronephrosis on the right without evidence of obstructing mass or calculus. Mild thickening of the wall of the right renal pelvis and calyces. This patient is status post removal of a double pigtail stent catheter. Findings may be related to recent passage of a calculus. Clinical correlation to exclude other etiologies including infection or occult neoplasm suggested. Stomach and bowel: Mild diverticulosis is present in the left colon. No diverticulitis. Appendix: No evidence of appendicitis. Intraperitoneal space: Unremarkable. No free air. No significant fluid collection. Vasculature: The aortoiliac vessels demonstrate mild atherosclerotic calcification. Lymph nodes: Unremarkable. No enlarged lymph nodes. Urinary bladder: Unremarkable as visualized. Reproductive: 3.9 x 4.1 x 4.3 cm left adnexal mass unchanged in comparison to the prior study. As the lesion may represent a solid mass further characterization with nonemergent ultrasound suggested. 2.3 cm exophytic cystic lesion likely arising from the right ovary again redemonstrated in stable. Further evaluation with ultrasound suggested. Bones/joints: Moderate to severe central spinal stenosis L4-L5. Soft tissues: Bilateral breast implants. Diastasis of the mid rectus sheath. Small umbilical hernia without incarceration. IMPRESSION: 1. 3.4 cm partially opacified hemangioma dome of the liver. 2. There has been a cholecystectomy. 3. Dilatation of the intra and extrahepatic biliary radicles more dilated than typically demonstrated in the post cholecystectomy state. No evidence of choledocholithiasis. As described above further evaluation may be necessary to exclude the possibility of a stricture or stricturing neoplasm in the appropriate clinical setting. Correlation with biliary chemistries suggested. 4. Status post removal of a double pigtail stent in the right collecting system with residual dilatation of the right collecting system. Differential diagnosis as offered above. 5. Mild diverticulosis is present in the left colon. No diverticulitis. 6. There is peripancreatic inflammatory stranding and fluid adjacent to the pancreatic body and tail which is boggy, and demonstrates a complex peripancreatic process distal to the tail measuring 2.8 x 3 cm. Findings most consistent with pancreatitis and possible phlegmon/ pseudocyst development. The possibility of a pancreatic neoplasm not excluded but considered less likely in view of the recently normal examination of the pancreas. ASSESSMENT: 60-year-old W with significant medical history of breast cancer, multiple abdominal surgeries, and pancreatitis who presented with persisting abdominal pain shortly after being diagnosed in [facility] with pancreatitis and an ovarian mass? whose course has been c/b persisting severe abdominal pain without any tolerance of PO and peripancreatic inflammatory stranding and fluid adjacent to the pancreatic body and tail which is boggy, and demonstrates a complex peripancreatic process distal to the tail measuring 2.8 x 3 cm c/f pancreatitis 2/ possible phlegmon/ pseudocyst development vs. potential mass, with inability to do an MRI due to breast expanders, now looking to transfer for EUS. PLAN: #Presumed Pancreatitis, recurrence possibly c/b potential pseudocyst/phlegmon formation vs. mass -Will continue current pain regimen -History of pancreatitis due to gallstones in , recently this year episode of pancreatitis with small bowel obstruction in July 2020. Per patient no known increased risk for pancreatitis reportedly from her oncologist with her chemo regimen. -continue [id number] at this time -Symptom management/supportive care with antiemetics and analgesics -Unable to get MRI abdomen with contrast (pancreatic protocol) due to breast expanders, GI recommended transfer for EUS, looking for beds at this time. Currently no beds at [facility], [facility], [facility], [facility] and [facility] does not carry capacity for the required study. I spoke with Dr. Xiong about this presumed diagnosis of pancreatitis with a normal lipase and unremarkable CMP since admission with the only finding being this mass on imaging. He saw her and is recommending re-trial of PO with goal being discharge on some form of PO to get the EUS as an outpatient. Will give clear liquid diet. #Mild hydroureter nephrosis of the right: Without evidence of obstructing mass or calculus. -Patient follows urology outpatient and has ureteral stent history -Cr wnl -I/Os #Recent leukopenia i/s/o recent chemo for active breast cancer -blood cultures NG -WBC now with leukocytosis, reportedly was getting neupogen per prior hospitalist? likely more like neulasta as o/p #Syncope likely vasovagal vs. hypotension related (poor po intake) -No syncope while here, no events on tele -C/w tele -No neurological changes #HLD: -statin held #Depression: -Continue escitalopram, nortriptyline #GI ppx: - PPI IV #CT findin.9 x 4.1 x 4.3 cm left adnexal mass. -Unchanged from previous CT comparison per radiology. Recommendation for nonemergent ultrasound follow-up. Encourage patient follow-up. These findings were discussed with her. Disposition planning: continue IV fluids and pain management, will continue to pursue transfer for EUS to better delineate pseudocyst/phlegmon development vs. potential mass VS,Fishbone, I+O VS, Fishbone, I+O Laboratory Tests 03/23/21 11:04 Vital Signs Date Time Temp Pulse Resp B/P (MAP) Pulse Ox O2 Delivery O2 Flow Rate FiO2 03/24/21 06:00 98.4 84 18 120/61 (80) 95 Room Air I&O- Last 24 Hours up to 6 AM 03/24/21 06:00 Intake Total 600 ml Output Total 1650 ml Balance -1050 ml JOAN SEGOVIA MD Mar 24, 2021 08:51
[2021-03-24] MEDS ORDERED: POTASSIUM CHLORIDE 10MEQ SR TABLET PO ONE (14:40)
[2021-03-24] MEDS ORDERED: KCL 10MEQ/100ML SWI (KRUN) 10 MEQ in IV 1 EA IV SCH (15:00)
[2021-03-24] MEDS: KCL 20MEQ IN D5/NS 1000ML 1,000 ML IV SCH (15:46)
[2021-03-24] MEDS: ACETAMINOPHEN TAB 650MG DOSE (2X325MG) PO PRN ×2 (15:47→22:15)
[2021-03-24] MEDS: ONDANSETRON 4MG/2ML VIAL IV PRN ×2 (15:48→22:14)
[2021-03-24 22:00] VITALS: BP 131/78
[2021-03-24] MEDS: NORTRIPTYLINE 25 MG CAP PO SCH (22:14)
[2021-03-24] MEDS: MORPHINE 10 MG/ML 1ML VIAL (J2270) IV PRN (22:15)
[2021-03-25] MEDS: KCL 20MEQ IN D5/NS 1000ML 1,000 ML IV SCH ×2 (03:00→12:27)
[2021-03-25 06:00] VITALS: BP 127/66
[2021-03-25] MEDS: ONDANSETRON 4MG/2ML VIAL IV PRN ×2 (08:14→17:09)
[2021-03-25] MEDS: ENOXAPARIN 40MG/0.4ML SYRINGE (J1650 PER 10MG) SC SCH (08:14)
[2021-03-25 08:16] LABS: BLOOD UREA NITROGEN 3 MG/DL (7-18); CALCIUM LEVEL 8.4 MG/DL (8.5-10.1); CARBON DIOXIDE LEVEL 28 MEQ/L (21-32); CHLORIDE LEVEL 110 MEQ/L (98-107); CREATININE FOR GFR 0.55 MG/DL (0.55-1.30); GLOMERULAR FILTRATION RATE > 60.0 (>51); GLUCOSE, FASTING 99 MG/DL (70-100); POTASSIUM SERUM 3.5 MEQ/L (3.5-5.1); SODIUM LEVEL 143 MEQ/L (136-145)
[2021-03-25] MEDS: MORPHINE 10 MG/ML 1ML VIAL (J2270) IV PRN ×2 (08:16→12:43)
[2021-03-25] MEDS: PANTOPRAZOLE 40MG VIAL (C9113 PER 1) IV SCH (08:16)
[2021-03-25] MEDS ORDERED: POTASSIUM CHLORIDE 10% LIQ 20 MEQ/15 ML UDC PO ONE (10:30)
[2021-03-25] MEDS ORDERED: ISOVUE-370 76% 100ML VIAL As Ordered ONE (10:42)
[2021-03-25] MEDS: GASTROGRAFIN SOLUTION 30ML PO SCH ×2 (11:51→12:27)
[2021-03-25] MEDS: ESCITALOPRAM OXALATE 10 MG TAB (LEXAPRO) PO SCH (12:42)
[2021-03-25 14:00] VITALS: BP 132/70
--- NOTE | 2021-03-25 14:00 | IPNPDOC ---
Text Note Date of Service The patient was seen on 03/25/21. NOTE SUBJECTIVE: -Continues to have significant abdominal pain, however did tolerate some PO without extra pain meds given. She was eating soup when I went in to assess her! -The patient denies chest pain, increased shortness of breath, fevers, chills. OBJECTIVE: VITAL SIGNS: Please see below CONSTITUTIONAL: Ill appearing, AAO x 3, no distress EYES: PERRLA, EOM intact HENT, MOUTH: Normocephalic, atraumatic, moist mucous membranes, alopecia NECK: SUPPLE, no JVD, no lymphadenopathy, no carotid bruit CV: Regular rate and rhythm, S1S2 normal, no murmurs/rubs/gallops RESPIRATORY: Clear to auscultation bilaterally, no rales/rhonchi/wheezes GI: Abdominal pain on palpation, worst on left side throughout, normoactive bowel sounds in all 4 quadrants, soft, nondistended, no rebound, no organomegaly MUSCULOSKELETAL: Normal ROM. No cyanosis, clubbing, swelling, joint deformity, extremity edema INTEGUMENTARY: Intact, no rashes, no lesions, no erythema NEUROLOGIC: Cranial Nerves II-XII are intact, no focal deficits PSYCHIATRIC: Mood and affect are normal CURRENT MEDICATIONS: Please see below LABORATORY DATA: Reviewed Pending AM labs IMAGING: CT A/P with IV contrast: Liver: 3.4 cm partially opacified hemangioma dome of the liver. Gallbladder and bile ducts: There has been a cholecystectomy. Dilatation of the intra and extrahepatic biliary radicles more dilated than typically demonstrated in the post cholecystectomy state. Common bile duct measures 2.3 cm maximally. No evidence of choledocholithiasis. Distal duct tapers at the ampullary. Further evaluation may be necessary to exclude the possibility of a stricture or stricturing neoplasm in the appropriate clinical setting. Correlation with biliary chemistries suggested. Pancreas: There is peripancreatic inflammatory stranding and fluid adjacent to the pancreatic body and tail which is boggy, and demonstrates a complex peripancreatic process distal to the tail measuring 2.8 x 3 cm. Findings most consistent with pancreatitis and possible phlegmon/ pseudocyst development. The possibility of a pancreatic neoplasm not excluded but considered less likely in view of the recently normal examination of the pancreas. Spleen: Normal. No splenomegaly. Adrenal glands: Normal. No mass. Kidneys and ureters: Mild hydroureteronephrosis on the right without evidence of obstructing mass or calculus. Mild thickening of the wall of the right renal pelvis and calyces. This patient is status post removal of a double pigtail stent catheter. Findings may be related to recent passage of a calculus. Clinical correlation to exclude other etiologies including infection or occult neoplasm suggested. Stomach and bowel: Mild diverticulosis is present in the left colon. No diverticulitis. Appendix: No evidence of appendicitis. Intraperitoneal space: Unremarkable. No free air. No significant fluid collection. Vasculature: The aortoiliac vessels demonstrate mild atherosclerotic calcification. Lymph nodes: Unremarkable. No enlarged lymph nodes. Urinary bladder: Unremarkable as visualized. Reproductive: 3.9 x 4.1 x 4.3 cm left adnexal mass unchanged in comparison to the prior study. As the lesion may represent a solid mass further characterization with nonemergent ultrasound suggested. 2.3 cm exophytic cystic lesion likely arising from the right ovary again redemonstrated in stable. Further evaluation with ultrasound suggested. Bones/joints: Moderate to severe central spinal stenosis L4-L5. Soft tissues: Bilateral breast implants. Diastasis of the mid rectus sheath. Small umbilical hernia without incarceration. IMPRESSION: 1. 3.4 cm partially opacified hemangioma dome of the liver. 2. There has been a cholecystectomy. 3. Dilatation of the intra and extrahepatic biliary radicles more dilated than typically demonstrated in the post cholecystectomy state. No evidence of choledocholithiasis. As described above further evaluation may be necessary to exclude the possibility of a stricture or stricturing neoplasm in the appropriate clinical setting. Correlation with biliary chemistries suggested. 4. Status post removal of a double pigtail stent in the right collecting system with residual dilatation of the right collecting system. Differential diagnosis as offered above. 5. Mild diverticulosis is present in the left colon. No diverticulitis. 6. There is peripancreatic inflammatory stranding and fluid adjacent to the pancreatic body and tail which is boggy, and demonstrates a complex peripancreatic process distal to the tail measuring 2.8 x 3 cm. Findings most consistent with pancreatitis and possible phlegmon/ pseudocyst development. The possibility of a pancreatic neoplasm not excluded but considered less likely in view of the recently normal examination of the pancreas. ASSESSMENT: 60-year-old W with significant medical history of breast cancer, multiple abdominal surgeries, and pancreatitis who presented with persisting abdominal pain shortly after being diagnosed in [facility] with pancreatitis and an ovarian mass? whose course has been c/b persisting severe abdominal pain without any tolerance of PO and peripancreatic inflammatory stranding and fluid adjacent to the pancreatic body and tail which is boggy, and demonstrates a complex peripancreatic process distal to the tail measuring 2.8 x 3 cm c/f pancreatitis 2/ possible phlegmon/ pseudocyst development vs. potential mass, with inability to do an MRI due to breast expanders, now looking to transfer for EUS. PLAN: #Presumed Pancreatitis w/ normal labs, recurrence possibly c/b potential pseudocyst/phlegmon formation vs. mass -Will continue current pain regimen -History of pancreatitis due to gallstones in , recently this year episode of pancreatitis with small bowel obstruction in July 2020. Per patient no known increased risk for pancreatitis reportedly from her oncologist with her chemo regimen. -continue [id number] at this time -Symptom management/supportive care with antiemetics and analgesics -Unable to get MRI abdomen with contrast (pancreatic protocol) due to breast expanders, GI recommended transfer for EUS, looking for beds at this time. Currently no beds at [facility], [facility], [facility], [facility] and [facility] does not carry capacity for the required study. I spoke with Dr. Xinog about this presumed diagnosis of pancreatitis with a normal lipase and unremarkable CMP since admission with the only finding being this mass on imaging. He saw her and is recommending re-trial of PO with goal being discharged on some form of PO to get the EUS as an outpatient. Will continue clear liquid diet. -In the meantime will repeat CT wo/ followed by w/ contrast with pancreatic protocol for potential better delineation of pancreatic pathology and interim changes #Mild hydroureter nephrosis of the right: Without evidence of obstructing mass or calculus. -Patient follows urology outpatient and has ureteral stent history -Cr wnl -I/Os #Recent leukopenia i/s/o recent chemo for active breast cancer -blood cultures NG -WBC now with leukocytosis, reportedly was getting neupogen per prior hospitalist? likely more like neulasta as o/p #Syncope likely vasovagal vs. hypotension related (poor po intake) -No syncope while here, no events on tele -C/w tele -No neurological changes #HLD: -statin held #Depression: -Continue escitalopram, nortriptyline #GI ppx: - PPI IV #CT findin.9 x 4.1 x 4.3 cm left adnexal mass. -Unchanged from previous CT comparison per radiology. Recommendation for nonemergent ultrasound follow-up. Encourage patient follow-up. These findings were discussed with her. Disposition planning: continue IV fluids and pain management, will continue to pursue transfer for EUS to better delineate pseudocyst/phlegmon development vs. potential mass VS,Best, I+O VS, Best, I+O Laboratory Tests 03/25/21 07:28 Vital Signs Date Time Temp Pulse Resp B/P (MAP) Pulse Ox O2 Delivery O2 Flow Rate FiO2 03/25/21 08:16 16 95 Room Air 03/25/21 06:00 97.5 77 127/66 (86) I&O- Last 24 Hours up to 6 AM 03/25/21 06:00 Intake Total 1800 ml Output Total 1150 ml Balance 650 ml JOAN SEGOVIA MD Mar 25, 2021 10:34
--- NOTE | 2021-03-25 15:31 | REP ---
INDICATION: seeking pancreatic protocol CT. COMPARISON: Multiple the latest 03/19/2021 TECHNIQUE: Standard helical technique before and after the intravenous administration of 100 cc Isovue 370. FINDINGS: Since the prior exam small bilateral pleural effusions have developed left greater than right. Since the prior exam mild bibasilar curvilinear densities have developed left greater than right. There is no significant change in the appearance of the imaged osseous structures. The pre contrast enhanced portion of the exam shows mild intrahepatic ductal dilatation consistent with the patient's cholecystectomy state. The liver and spleen are unchanged. Note is again made of an hemangioma in the hepatic dome status quo. This has been stable since 02/09/2017. There are no new enhancing hepatic abnormalities. The adrenal glands, left kidney are unremarkable. There is mild right-sided hydronephrosis and proximal right hydroureter. There is no significant change in appearance of the abdominal aorta or para-regions. There is evidence of circumferential mural thickening of the descending colon. There is no evidence of free fluid or free air. The pancreatic tail there is a new complex enhancing mass which measures approximately 3.2 x 3.1 by 3.7 cm. Bone window technique throughout the exam shows no significant change in the appearance of the imaged osseous structures. IMPRESSION: 1. Stable hepatic hemangioma. 2. Abnormal enhancing pancreatic tail region as described above. Since represents a change from 09/25/2020 and likely represents inflammatory disease, however, follow-up is recommended. 3. Thickening of the barron of the descending colon and likely inflammatory in nature. Certainly, pancreatitis can produce this finding. 4. Mild right-sided hydronephrosis and proximal hydroureter of uncertain etiology. Consider follow-up. 5. Other findings as described above. <Electronically signed by Pineda Bradshaw > 03/25/21 [id number]
[2021-03-25] MEDS: MORPHINE 4 MG/ML 1ML VIAL/SYRINGE (J2270) IV PRN (17:09)
[2021-03-25] MEDS: NORTRIPTYLINE 25 MG CAP PO SCH (20:22)
[2021-03-25] MEDS: ACETAMINOPHEN TAB 650MG DOSE (2X325MG) PO PRN (20:23)
[2021-03-25 22:00] VITALS: BP 130/76
[2021-03-26] MEDS: KCL 20MEQ IN D5/NS 1000ML 1,000 ML IV SCH ×2 (00:20→10:18)
[2021-03-26] MEDS: MORPHINE 4 MG/ML 1ML VIAL/SYRINGE (J2270) IV PRN (02:34)
[2021-03-26] MEDS: MORPHINE 10 MG/ML 1ML VIAL (J2270) IV PRN ×2 (03:32→09:38)
[2021-03-26 05:41] VITALS: BP 128/74
[2021-03-26 06:27] LABS: BLOOD UREA NITROGEN 2 MG/DL (7-18); CALCIUM LEVEL 8.4 MG/DL (8.5-10.1); CARBON DIOXIDE LEVEL 30 MEQ/L (21-32); CHLORIDE LEVEL 108 MEQ/L (98-107); CREATININE FOR GFR 0.57 MG/DL (0.55-1.30); GLOMERULAR FILTRATION RATE > 60.0 (>51); GLUCOSE, FASTING 98 MG/DL (70-100); POTASSIUM SERUM 3.5 MEQ/L (3.5-5.1); SODIUM LEVEL 142 MEQ/L (136-145)
[2021-03-26] MEDS: PANTOPRAZOLE 40MG VIAL (C9113 PER 1) IV SCH (09:35)
[2021-03-26] MEDS: ONDANSETRON 4MG/2ML VIAL IV PRN (09:36)
[2021-03-26] MEDS: ENOXAPARIN 40MG/0.4ML SYRINGE (J1650 PER 10MG) SC SCH (09:36)
[2021-03-26] MEDS: ESCITALOPRAM OXALATE 10 MG TAB (LEXAPRO) PO SCH (12:36)
[2021-03-26 14:00] VITALS: BP 126/72
--- NOTE | 2021-03-26 14:00 | IPNPDOC ---
Text Note Date of Service The patient was seen on 03/26/21. NOTE SUBJECTIVE: -Continues to have significant abdominal pain, however tolerating PO without extra pain meds given. -The patient denies chest pain, increased shortness of breath, fevers, chills. OBJECTIVE: VITAL SIGNS: Please see below CONSTITUTIONAL: Ill appearing, AAO x 3, no distress EYES: PERRLA, EOM intact HENT, MOUTH: Normocephalic, atraumatic, moist mucous membranes, alopecia NECK: SUPPLE, no JVD, no lymphadenopathy, no carotid bruit CV: Regular rate and rhythm, S1S2 normal, no murmurs/rubs/gallops RESPIRATORY: Clear to auscultation bilaterally, no rales/rhonchi/wheezes GI: Abdominal pain on palpation, worst on left side, normoactive bowel sounds in all 4 quadrants, soft, nondistended, no rebound, no organomegaly MUSCULOSKELETAL: Normal ROM. No cyanosis, clubbing, swelling, joint deformity, extremity edema INTEGUMENTARY: Intact, no rashes, no lesions, no erythema NEUROLOGIC: Cranial Nerves II-XII are intact, no focal deficits PSYCHIATRIC: Mood and affect are normal CURRENT MEDICATIONS: Please see below LABORATORY DATA: Reviewed WBC 14.5 Hgb 8.6 K 3.5 IMAGING: CT A/P with IV contrast: Liver: 3.4 cm partially opacified hemangioma dome of the liver. Gallbladder and bile ducts: There has been a cholecystectomy. Dilatation of the intra and extrahepatic biliary radicles more dilated than typically demonstrated in the post cholecystectomy state. Common bile duct measures 2.3 cm maximally. No evidence of choledocholithiasis. Distal duct tapers at the ampullary. Further evaluation may be necessary to exclude the possibility of a stricture or stricturing neoplasm in the appropriate clinical setting. Correlation with biliary chemistries suggested. Pancreas: There is peripancreatic inflammatory stranding and fluid adjacent to the pancreatic body and tail which is boggy, and demonstrates a complex peripancreatic process distal to the tail measuring 2.8 x 3 cm. Findings most consistent with pancreatitis and possible phlegmon/ pseudocyst development. The possibility of a pancreatic neoplasm not excluded but considered less likely in view of the recently normal examination of the pancreas. Spleen: Normal. No splenomegaly. Adrenal glands: Normal. No mass. Kidneys and ureters: Mild hydroureteronephrosis on the right without evidence of obstructing mass or calculus. Mild thickening of the wall of the right renal pelvis and calyces. This patient is status post removal of a double pigtail stent catheter. Findings may be related to recent passage of a calculus. Clinical correlation to exclude other etiologies including infection or occult neoplasm suggested. Stomach and bowel: Mild diverticulosis is present in the left colon. No diverticulitis. Appendix: No evidence of appendicitis. Intraperitoneal space: Unremarkable. No free air. No significant fluid collection. Vasculature: The aortoiliac vessels demonstrate mild atherosclerotic calcification. Lymph nodes: Unremarkable. No enlarged lymph nodes. Urinary bladder: Unremarkable as visualized. Reproductive: 3.9 x 4.1 x 4.3 cm left adnexal mass unchanged in comparison to the prior study. As the lesion may represent a solid mass further characterization with nonemergent ultrasound suggested. 2.3 cm exophytic cystic lesion likely arising from the right ovary again redemonstrated in stable. Further evaluation with ultrasound suggested. Bones/joints: Moderate to severe central spinal stenosis L4-L5. Soft tissues: Bilateral breast implants. Diastasis of the mid rectus sheath. Small umbilical hernia without incarceration. IMPRESSION: 1. 3.4 cm partially opacified hemangioma dome of the liver. 2. There has been a cholecystectomy. 3. Dilatation of the intra and extrahepatic biliary radicles more dilated than typically demonstrated in the post cholecystectomy state. No evidence of choledocholithiasis. As described above further evaluation may be necessary to exclude the possibility of a stricture or stricturing neoplasm in the appropriate clinical setting. Correlation with biliary chemistries suggested. 4. Status post removal of a double pigtail stent in the right collecting system with residual dilatation of the right collecting system. Differential diagnosis as offered above. 5. Mild diverticulosis is present in the left colon. No diverticulitis. 6. There is peripancreatic inflammatory stranding and fluid adjacent to the pancreatic body and tail which is boggy, and demonstrates a complex peripancreatic process distal to the tail measuring 2.8 x 3 cm. Findings most consistent with pancreatitis and possible phlegmon/ pseudocyst development. The possibility of a pancreatic neoplasm not excluded but considered less likely in view of the recently normal examination of the pancreas. 03/25: Repeat CT A/P without followed by with IV contrast: Since the prior exam small bilateral pleural effusions have developed left greater than right. Since the prior exam mild bibasilar curvilinear densities have developed left greater than right. There is no significant change in the appearance of the imaged osseous structures. The pre contrast enhanced portion of the exam shows mild intrahepatic ductal dilatation consistent with the patient's cholecystectomy state. The liver and spleen are unchanged. Note is again made of an hemangioma in the hepatic dome status quo. This has been stable since 02/09/2017. There are no new enhancing hepatic abnormalities. The adrenal glands, left kidney are unremarkable. There is mild right-sided hydronephrosis and proximal right hydroureter. There is no si gnificant change in appearance of the abdominal aorta or para-regions. There is evidence of circumferential mural thickening of the descending colon. There is no evidence of free fluid or free air. The pancreatic tail there is a new complex enhancing mass which measures approximately 3.2 x 3.1 by 3.7 cm. Bone window technique throughout the exam shows no significant change in the appearance of the imaged osseous structures. IMPRESSION: 1. Stable hepatic hemangioma. 2. Abnormal enhancing pancreatic tail region as described above. Since represents a change from 09/25/2020 and likely represents inflammatory disease, however, follow-up is recommended. 3. Thickening of the barron of the descending colon and likely inflammatory in nature. Certainly, pancreatitis can produce this finding. 4. Mild right-sided hydronephrosis and proximal hydroureter of uncertain etiology. Consider follow-up. 5. Other findings as described above. ASSESSMENT: 60-year-old W with significant medical history of breast cancer, multiple abdominal surgeries, and pancreatitis who presented with persisting abdominal pain shortly after being diagnosed in [facility] with pancreatitis and an ovarian mass? whose course has been c/b persisting severe abdominal pain without any tolerance of PO and peripancreatic inflammatory stranding and fluid adjacent to the pancreatic body and tail which is boggy, and demonstrates a complex peripancreatic process distal to the tail measuring 2.8 x 3 cm c/f pancreatitis 2/ possible phlegmon/ pseudocyst development vs. potential mass, with inability to do an MRI due to breast expanders EUS. PLAN: #Presumed Pancreatitis w/ normal labs, recurrence possibly c/b potential p seudocyst/phlegmon formation vs. mass, now described as mass in distal pancreas -Will continue current pain regimen -History of pancreatitis due to gallstones in 1980s, recently this year episode of pancreatitis with small bowel obstruction in July 2020. Per patient no known increased risk for pancreatitis reportedly from her oncologist with her chemo regimen. -Discontinue [id number] at this time -Symptom management/supportive care with antiemetics and analgesics -Unable to get MRI abdomen with contrast (pancreatic protocol) due to breast expanders, GI recommended transfer for EUS, looking for beds at this time. Currently no beds at [facility], [facility], [facility], [facility] does not carry capacity for the required study. I spoke with Dr. Xiong about this presumed diagnosis of pancreatitis with a normal lipase and unremarkable CMP since admission with the only finding being this mass on imaging. He saw her and is recommending re-trial of PO with goal being discharged on some form of PO to get the EUS as an outpatient. Will adva nce to full liquid diet. -Repeat CT wo/ followed by w/ contrast with pancreatic protocol without interim changes with distal panc mass? -Trial pain management with PO Percocet 1tab Q4HP and trying to give it pre-PO #Mild hydroureter nephrosis of the right: Without evidence of obstructing mass or calculus. -Patient follows urology outpatient and has ureteral stent history -Cr wnl -I/Os #Recent leukopenia i/s/o recent chemo for active breast cancer -blood cultures NG -WBC now with leukocytosis, reportedly was getting neupogen per prior hospitalist? likely more like neulasta as o/p #Syncope likely vasovagal vs. hypotension related (poor po intake) -No syncope while here, no events on tele -C/w tele -No neurological changes #HLD: -statin held #Depression: -Continue escitalopram, nortriptyline #GI ppx: - PPI IV #CT findin.9 x 4.1 x 4.3 cm left adnexal mass. -Unchanged from previous CT comparison per radiology. Recommendation for nonemergent ultrasound follow-up. Encourage patient follow-up. These findings were discussed with her. Disposition planning: continue IV fluids and pain management, at this time slowly advancing PO with plan for d/c home for prompt outpatient EUS evaluation since it could not be achieved while inpatient. VS,Fishbone, I+O VS, Fishbone, I+O Laboratory Tests 03/26/21 05:47 Vital Signs Date Time Temp Pulse Resp B/P (MAP) Pulse Ox O2 Delivery O2 Flow Rate FiO2 03/26/21 09:38 18 03/26/21 05:41 97.7 78 128/74 (92) 92 Room Air I&O- Last 24 Hours up to 6 AM0 03/26/21 06:00 Intake Total 1350 ml Output Total 1600 ml Balance -250 ml JOAN SEGOVIA MD Mar 26, 2021 10:15
[2021-03-26] MEDS: ACETAMINOPHEN TAB 650MG DOSE (2X325MG) PO PRN (14:41)
--- NOTE | 2021-03-26 16:35 | IPNPDOC ---
Date Seen The patient was seen on 03/26/21. Progress Note SUBJECTIVE: Patient is a [60]-year-old lady] with [recurrent chronic pancreatitis] OBJECTIVE PHYSICAL EXAMINATION: VITAL SIGNS: Please see below. GENERAL: [Somewhat less painful and tolerating food little bit better if she takes the pain medicine and antiemetics about an hour prior to eating] HEENT: [nl] CARDIOVASCULAR: . RESPIRATORY: . ABDOMINAL: [Left upper quadrant tenderness a bit less so than several days ago] EXTREMITIES: NEUROLOGICAL: PSYCHOLOGICAL: [Stable] LABORATORY DATA, IMAGING STUDIES, MICROBIOLOGY: Please see below. Echocardiogram: . DVT prophylaxis ordered?: ASSESSMENT AND PLAN: Patient is a [60]-year-old lady] with [recurrent chronic pancreatitis PROBLEMS: 1. [Recurrent chronic pancreatitis. Patient is very slowly improving. She needs unfortunately more time to improve more so she needs the pain medication antiemetics especially prior to eating an hour prior would be best]: . 2. CAT scan revealed abnormalities in the tail of the pancreas and this should be followed up with interventional gastroenterology. 3. Patient has adnexal mass which should be followed up alternate with gynecology 4. Patient just started her adjuvant chemotherapy for her breast cancer. She will need to follow-up with Dr. Castañeda in the [facility] for cancer care to decide how to proceed perhaps different chemotherapy would be better DISPOSITION: . VS, I&O, 24H, Fishbone Vital Signs/I&O Vital Signs Date Time Temp Pulse Resp B/P (MAP) Pulse Ox O2 Delivery O2 Flow Rate FiO2 03/26/21 14:00 98.4 86 16 126/72 (90) 94 Room Air I&O- Last 24 Hours up to 6 AM 03/26/21 06:00 Intake Total 1350 ml Output Total 1600 ml Balance -250 ml Laboratory Data 24H LABS Laboratory Tests 2 03/25/21 18:34: Bedside Glucose (Misc Panel) 91 03/26/21 02:38: Bedside Glucose (Misc Panel) 103 03/26/21 05:47: Anion Gap 4L, Glomerular Filtration Rate > 60.0, Calcium Level 8.4L 03/26/21 11:49: Bedside Glucose (Misc Panel) 90 CBC/BMP Laboratory Tests 03/26/21 05:47 Microbiology Microbiology 03/19/21 Blood Culture - Final, Complete NO GROWTH AFTER 5 DAYS 10/8/21 Blood Culture - Final, Complete NO GROWTH AFTER 5 DAYS HANDY AU MD Mar 26, 2021 16:35
[2021-03-26] MEDS ORDERED: ONDANSETRON 4 MG ORAL DISINTEGRATING TAB PO PRN (20:40)
[2021-03-26] MEDS: NORTRIPTYLINE 25 MG CAP PO SCH (20:50)
[2021-03-26] MEDS: PERCOCET 5MG/325MG TAB PO PRN (20:52)
[2021-03-26] MEDS: ONDANSETRON 4 MG TAB PO PRN (21:02)
[2021-03-26 22:00] VITALS: BP 141/72
[2021-03-27 06:00] VITALS: BP 126/71
[2021-03-27] MEDS: ENOXAPARIN 40MG/0.4ML SYRINGE (J1650 PER 10MG) SC SCH (08:50)
[2021-03-27] MEDS: PANTOPRAZOLE 40MG TAB (PROTONIX) PO SCH (08:50)
[2021-03-27] MEDS: ONDANSETRON 4 MG TAB PO PRN ×2 (08:53→13:07)
[2021-03-27] MEDS: PERCOCET 5MG/325MG TAB PO PRN ×3 (08:53→20:12)
[2021-03-27 09:27] LABS: HEMATOCRIT 31.3 % (36.0-47.0); HEMOGLOBIN 9.5 g/dl (12.0-15.5); MEAN CORPUSCULAR HEMOGLOBIN 24.4 pg (27.0-33.0); MEAN CORPUSCULAR HGB CONC 30.4 g/dl (32.0-36.5); MEAN CORPUSCULAR VOLUME 80.5 fl (80.0-96.0); PLATELET COUNT, AUTOMATED 460 10^3/uL (150-450); RED BLOOD COUNT 3.89 10^6/uL (4.00-5.40); WHITE BLOOD COUNT 12.7 10^3/uL (4.0-10.0)
[2021-03-27 10:33] LABS: ALBUMIN 2.1 GM/DL (3.2-5.2); ALT/SGPT 21 U/L (12-78); BILIRUBIN,TOTAL 0.1 MG/DL (0.2-1.0); BLOOD UREA NITROGEN 4 MG/DL (7-18); CARBON DIOXIDE LEVEL 32 MEQ/L (21-32); CHLORIDE LEVEL 102 MEQ/L (98-107); CREATININE FOR GFR 0.68 MG/DL (0.55-1.30); GLOMERULAR FILTRATION RATE > 60.0 (>51); GLUCOSE, FASTING 89 MG/DL (70-100); POTASSIUM SERUM 3.5 MEQ/L (3.5-5.1); SODIUM LEVEL 138 MEQ/L (136-145); TOTAL PROTEIN 6.3 GM/DL (6.4-8.2)
[2021-03-27] MEDS: ESCITALOPRAM OXALATE 10 MG TAB (LEXAPRO) PO SCH (13:07)
--- NOTE | 2021-03-27 13:23 | IPNPDOC ---
Text Note Date of Service The patient was seen on 03/27/21. NOTE SUBJECTIVE: -Abdominal pain is still present but a bit more manageable even with PO meds pre eating. We discussed potential discharge and she is quite worried that things will get worse when she gets home. We agreed to proceed with a soft diet today and tentatively plan on discharge on Monday AM as soon as we can get referral out to [facility]. -She is tolerating PO well -Does have some nausea, and requires some antiemetics PRN -The patient denies chest pain, increased shortness of breath, fevers, chills. OBJECTIVE: VITAL SIGNS: Please see below CONSTITUTIONAL: Ill appearing, AAO x 3, no distress EYES: PERRLA, EOM intact HENT, MOUTH: Normocephalic, atraumatic, moist mucous membranes, alopecia NECK: SUPPLE, no JVD, no lymphadenopathy, no carotid bruit CV: Regular rate and rhythm, S1S2 normal, no murmurs/rubs/gallops RESPIRATORY: Clear to auscultation bilaterally, no rales/rhonchi/wheezes GI: Abdominal pain on palpation, worst on left side, normoactive bowel sounds in all 4 quadrants, soft, nondistended, no rebound, no organomegaly MUSCULOSKELETAL: Normal ROM. No cyanosis, clubbing, swelling, joint deformity, extremity edema INTEGUMENTARY: Intact, no rashes, no lesions, no erythema NEUROLOGIC: Cranial Nerves II-XII are intact, no focal deficits PSYCHIATRIC: Mood and affect are normal CURRENT MEDICATIONS: Please see below LABORATORY DATA: Reviewed, pending AM labs IMAGING: CT A/P with IV contrast: Liver: 3.4 cm partially opacified hemangioma dome of the liver. Gallbladder and bile ducts: There has been a cholecystectomy. Dilatation of the intra and extrahepatic biliary radicles more dilated than typically demonstrated in the post cholecystectomy state. Common bile duct measures 2.3 cm maximally. No evidence of choledocholithiasis. Distal duct tapers at the ampullary. Further evaluation may be necessary to exclude the possibility of a stricture or stricturing neoplasm in the appropriate clinical setting. Correlation with biliary chemistries suggested. Pancreas: There is peripancreatic inflammatory stranding and fluid adjacent to the pancreatic body and tail which is boggy, and demonstrates a complex peripancreatic process distal to the tail measuring 2.8 x 3 cm. Findings most consistent with pancreatitis and possible phlegmon/ pseudocyst development. The possibility of a pancreatic neoplasm not excluded but considered less likely in view of the recently normal examination of the pancreas. Spleen: Normal. No splenomegaly. Adrenal glands: Normal. No mass. Kidneys and ureters: Mild hydroureteronephrosis on the right without evidence of obstructing mass or calculus. Mild thickening of the wall of the right renal pelvis and calyces. This patient is status post removal of a double pigtail stent catheter. Findings may be related to recent passage of a calculus. Clinical correlation to exclude other etiologies including infection or occult neoplasm suggested. Stomach and bowel: Mild diverticulosis is present in the left colon. No diverticulitis. Appendix: No evidence of appendicitis. Intraperitoneal space: Unremarkable. No free air. No significant fluid collection. Vasculature: The aortoiliac vessels demonstrate mild atherosclerotic calcification. Lymph nodes: Unremarkable. No enlarged lymph nodes. Urinary bladder: Unremarkable as visualized. Reproductive: 3.9 x 4.1 x 4.3 cm left adnexal mass unchanged in comparison to the prior study. As the lesion may represent a solid mass further characterization with nonemergent ultrasound suggested. 2.3 cm exophytic cystic lesion likely arising from the right ovary again redemonstrated in stable. Further evaluation with ultrasound suggested. Bones/joints: Moderate to severe central spinal stenosis L4-L5. Soft tissues: Bilateral breast implants. Diastasis of the mid rectus sheath. Small umbilical hernia without incarceration. IMPRESSION: 1. 3.4 cm partially opacified hemangioma dome of the liver. 2. There has been a cholecystectomy. 3. Dilatation of the intra and extrahepatic biliary radicles more dilated than typically demonstrated in the post cholecystectomy state. No evidence of choledocholithiasis. As described above further evaluation may be necessary to exclude the possibility of a stricture or stricturing neoplasm in the appropriate clinical setting. Correlation with biliary chemistries suggested. 4. Status post removal of a double pigtail stent in the right collecting system with residual dilatation of the right collecting system. Differential diagnosis as offered above. 5. Mild diverticulosis is present in the left colon. No diverticulitis. 6. There is peripancreatic inflammatory stranding and fluid adjacent to the pancreatic body and tail which is boggy, and demonstrates a complex peripancreatic process distal to the tail measuring 2.8 x 3 cm. Findings most consistent with pancreatitis and possible phlegmon/ pseudocyst development. The possibility of a pancreatic neoplasm not excluded but considered less likely in view of the recently normal examination of the pancreas. 03/25: Repeat CT A/P without followed by with IV contrast: Since the prior exam small bilateral pleural effusions have developed left greater than right. Since the prior exam mild bibasilar curvilinear densities have developed left greater than right. There is no significant change in the appearance of the imaged osseous structures. The pre contrast enhanced portion of the exam shows mild intrahepatic ductal dilatation consistent with the patient's cholecystectomy state. The liver and spleen are unchanged. Note is again made of an hemangioma in the hepatic dome status quo. This has been stable since 02/09/2017. There are no new enhancing hepatic abnormalities. The adrenal glands, left kidney are unremarkable. There is mild right-sided hydronephrosis and proximal right hydroureter. There is no sig nificant change in appearance of the abdominal aorta or para-regions. There is evidence of circumferential mural thickening of the descending colon. There is no evidence of free fluid or free air. The pancreatic tail there is a new complex enhancing mass which measures approximately 3.2 x 3.1 by 3.7 cm. Bone window technique throughout the exam shows no significant change in the appearance of the imaged osseous structures. IMPRESSION: 1. Stable hepatic hemangioma. 2. Abnormal enhancing pancreatic tail region as described above. Since represents a change from 09/25/2020 and likely represents inflammatory disease, however, follow-up is recommended. 3. Thickening of the barron of the descending colon and likely inflammatory in nature. Certainly, pancreatitis can produce this finding. 4. Mild right-sided hydronephrosis and proximal hydroureter of uncertain etiology. Consider follow-up. 5. Other findings as described above. ASSESSMENT: 60-year-old W with significant medical history of breast cancer, multiple abdominal surgeries, and pancreatitis who presented with persisting abdominal pain shortly after being diagnosed in [facility] with pancreatitis and an ovarian mass? whose course has been c/b persisting severe abdominal pain without any tolerance of PO and peripancreatic inflammatory stranding and fluid adjacent to the pancreatic body and tail which is boggy, and demonstrates a complex peripancreatic process distal to the tail measuring 2.8 x 3 cm c/f pancreatitis 2/ possible phlegmon/ pseudocyst development vs. potential mass, with inability to do an MRI due to breast expanders EUS. PLAN: #Presumed Pancreatitis w/ normal labs, recurrence possibly c/b potential pseudocyst/phlegmon formation vs. mass, now described as mass in distal pancreas -History of pancreatitis due to gallstones in 1980s, recently this year episode of pancreatitis with small bowel obstruction in July 2020. Per patient no known increased risk for pancreatitis reportedly from her oncologist with her chemo regimen. -Symptom management/supportive care with antiemetics and PO analgesics -Unable to get MRI abdomen with contrast (pancreatic protocol) due to breast expanders, GI recommended transfer for EUS, looking for beds at this time. Currently no beds at [facility], [facility], [facility], [facility] and [facility] does not carry capacity for the required study. I spoke with Dr. Xiong about this presumed diagnosis of pancreatitis with a normal lipase and unremarkable CMP since admission with the only finding being this mass on imaging. He saw her and is recommending re-trial of PO with goal being discharged on some form of PO to get the EUS as an outpatient. Will advance to soft diet today, doing relatively well. -Repeat CT wo/ followed by w/ contrast with pancreatic protocol without interim changes with distal panc mass? -Pain management with PO Percocet 1tab Q4HP and trying to give it pre-PO #Mild hydroureter nephrosis of the right: Without evidence of obstructing mass or calculus. -Patient follows urology outpatient and has ureteral stent history -Cr wnl -I/Os #Recent leukopenia i/s/o recent chemo for active breast cancer -blood cultures NG -WBC now with leukocytosis, reportedly was getting neupogen per prior hospitalist? likely more like neulasta as o/p #Syncope likely vasovagal vs. hypotension related (poor po intake) -No syncope while here, no events on tele -C/w tele -No neurological changes #HLD: -statin held #Depression: -Continue escitalopram, nortriptyline #GI ppx: - PPI IV #CT findin.9 x 4.1 x 4.3 cm left adnexal mass. -Unchanged from previous CT comparison per radiology. Recommendation for nonemergent ultrasound follow-up. Encourage patient follow-up. These findings were discussed with her. Disposition planning: Slowly advancing PO with plan for d/c home for prompt outpatient EUS evaluation since it could not be achieved while inpatient. VS,Fishbone, I+O VS, Fishbone, I+O Vital Signs Date Time Temp Pulse Resp B/P (MAP) Pulse Ox O2 Delivery O2 Flow Rate FiO2 03/27/21 06:00 96.7 83 16 126/71 (89) 92 Room Air I&O- Last 24 Hours up to 6 AM 03/27/21 06:00 Intake Total 1620 ml Output Total 225 ml Balance 1395 ml JOAN SEGOVIA MD Mar 27, 2021 08:58
[2021-03-27] MEDS: NORTRIPTYLINE 25 MG CAP PO SCH (20:12)
[2021-03-27 22:00] VITALS: BP 137/76
[2021-03-28] MEDS: PERCOCET 5MG/325MG TAB PO PRN ×4 (05:54→22:36)
[2021-03-28 06:00] VITALS: BP 135/76
[2021-03-28 07:04] LABS: HEMOGLOBIN 9.4 g/dl (12.0-15.5); MEAN CORPUSCULAR HEMOGLOBIN 24.6 pg (27.0-33.0); MEAN CORPUSCULAR HGB CONC 30.3 g/dl (32.0-36.5); MEAN CORPUSCULAR VOLUME 81.2 fl (80.0-96.0); PLATELET COUNT, AUTOMATED 477 10^3/uL (150-450); RED BLOOD COUNT 3.82 10^6/uL (4.00-5.40); WHITE BLOOD COUNT 11.8 10^3/uL (4.0-10.0)
[2021-03-28 07:28] LABS: ALBUMIN 2.1 GM/DL (3.2-5.2); ALT/SGPT 18 U/L (12-78); BILIRUBIN,TOTAL 0.1 MG/DL (0.2-1.0); BLOOD UREA NITROGEN 7 MG/DL (7-18); CALCIUM LEVEL 9.1 MG/DL (8.5-10.1); CARBON DIOXIDE LEVEL 32 MEQ/L (21-32); CHLORIDE LEVEL 103 MEQ/L (98-107); CREATININE FOR GFR 0.62 MG/DL (0.55-1.30); GLOMERULAR FILTRATION RATE > 60.0 (>51); GLUCOSE, FASTING 80 MG/DL (70-100); LIPASE 33 U/L (73-393); POTASSIUM SERUM 3.8 MEQ/L (3.5-5.1); SODIUM LEVEL 139 MEQ/L (136-145); TOTAL PROTEIN 5.7 GM/DL (6.4-8.2)
[2021-03-28] MEDS: PANTOPRAZOLE 40MG TAB (PROTONIX) PO SCH (09:26)
[2021-03-28] MEDS: ENOXAPARIN 40MG/0.4ML SYRINGE (J1650 PER 10MG) SC SCH (09:27)
--- NOTE | 2021-03-28 11:44 | IPNPDOC ---
Text Note Date of Service The patient was seen on 03/28/21. NOTE SUBJECTIVE: -Abdominal pain is still present but manageable with PO meds. We discussed potential discharge and she is quite worried that things will get worse when she gets home. As noted yesterday, plan is for discharge on Monday AM as soon as we can get referral out to [facility]. -She is tolerating soft diet well over the last 24h -The patient denies chest pain, increased shortness of breath, fevers, chills. OBJECTIVE: VITAL SIGNS: Please see below CONSTITUTIONAL: Ill appearing, AAO x 3, no distress EYES: PERRLA, EOM intact HENT, MOUTH: Normocephalic, atraumatic, moist mucous membranes, alopecia NECK: SUPPLE, no JVD, no lymphadenopathy, no carotid bruit CV: Regular rate and rhythm, S1S2 normal, no murmurs/rubs/gallops RESPIRATORY: Clear to auscultation bilaterally, no rales/rhonchi/wheezes GI: Abdominal pain on palpation, worst on left side, normoactive bowel sounds in all 4 quadrants, soft, nondistended, no rebound, no organomegaly MUSCULOSKELETAL: Normal ROM. No cyanosis, clubbing, swelling, joint deformity, extremity edema INTEGUMENTARY: Intact, no rashes, no lesions, no erythema NEUROLOGIC: Cranial Nerves II-XII are intact, no focal deficits PSYCHIATRIC: Mood and affect are normal CURRENT MEDICATIONS: Please see below LABORATORY DATA: Reviewed, WBC 11.8 hgb 9.4 Na 139 K 3.8 Cr 0.62 IMAGING: CT A/P with IV contrast: Liver: 3.4 cm partially opacified hemangioma dome of the liver. Gallbladder and bile ducts: There has been a cholecystectomy. Dilatation of the intra and extrahepatic biliary radicles more dilated than typically demonstrated in the post cholecystectomy state. Common bile duct measures 2.3 cm maximally. No evidence of choledocholithiasis. Distal duct tapers at the ampullary. Further evaluation may be necessary to exclude the possibility of a stricture or stricturing neoplasm in the appropriate clinical setting. Correlation with biliary chemistries suggested. Pancreas: There is peripancreatic inflammatory stranding and fluid adjacent to the pancreatic body and tail which is boggy, and demonstrates a complex peripancreatic process distal to the tail measuring 2.8 x 3 cm. Findings most consistent with pancreatitis and possible phlegmon/ pseudocyst development. The possibility of a pancreatic neoplasm not excluded but considered less likely in view of the recently normal examination of the pancreas. Spleen: Normal. No splenomegaly. Adrenal glands: Normal. No mass. Kidneys and ureters: Mild hydroureteronephrosis on the right without evidence of obstructing mass or calculus. Mild thickening of the wall of the right renal pelvis and calyces. This patient is status post removal of a double pigtail stent catheter. Findings may be related to recent passage of a calculus. Clinical correlation to exclude other etiologies including infection or occult neoplasm suggested. Stomach and bowel: Mild diverticulosis is present in the left colon. No diverticulitis. Appendix: No evidence of appendicitis. Intraperitoneal space: Unremarkable. No free air. No significant fluid collection. Vasculature: The aortoiliac vessels demonstrate mild atherosclerotic calcification. Lymph nodes: Unremarkable. No enlarged lymph nodes. Urinary bladder: Unremarkable as visualized. Reproductive: 3.9 x 4.1 x 4.3 cm left adnexal mass unchanged in comparison to the prior study. As the lesion may represent a solid mass further characterization with nonemergent ultrasound suggested. 2.3 cm exophytic cystic lesion likely arising from the right ovary again redemonstrated in stable. Further evaluation with ultrasound suggested. Bones/joints: Moderate to severe central spinal stenosis L4-L5. Soft tissues: Bilateral breast implants. Diastasis of the mid rectus sheath. Small umbilical hernia without incarceration. IMPRESSION: 1. 3.4 cm partially opacified hemangioma dome of the liver. 2. There has been a cholecystectomy. 3. Dilatation of the intra and extrahepatic biliary radicles more dilated than typically demonstrated in the post cholecystectomy state. No evidence of choledocholithiasis. As described above further evaluation may be necessary to exclude the possibility of a stricture or stricturing neoplasm in the appropriate clinical setting. Correlation with biliary chemistries suggested. 4. Status post removal of a double pigtail stent in the right collecting system with residual dilatation of the right collecting system. Differential diagnosis as offered above. 5. Mild diverticulosis is present in the left colon. No diverticulitis. 6. There is peripancreatic inflammatory stranding and fluid adjacent to the pancreatic body and tail which is boggy, and demonstrates a complex peripancreatic process distal to the tail measuring 2.8 x 3 cm. Findings most consistent with pancreatitis and possible phlegmon/ pseudocyst development. The possibility of a pancreatic neoplasm not excluded but considered less likely in view of the recently normal examination of the pancreas. 03/25: Repeat CT A/P without followed by with IV contrast: Since the prior exam small bilateral pleural effusions have developed left greater than right. Since the prior exam mild bibasilar curvilinear densities have developed left greater than right. There is no significant change in the appearance of the imaged osseous structures. The pre contrast enhanced portion of the exam shows mild intrahepatic ductal dilatation consistent with the patient's cholecystectomy state. The liver and spleen are unchanged. Note is again made of an hemangioma in the hepatic dome status quo. This has been stable since 02/09/2017. There are no new enhancing hepatic abnormalities. The adrenal glands, left kidney are unremarkable. There is mild right-sided hydronephrosis and proximal right hydroureter. There is no significant change in appearance of the abdominal aorta or para-regions. There is evidence of circumferential mural thickening of the descending colon. There is no evidence of free fluid or free air. The pancreatic tail there is a new complex enhancing mass which measures approximately 3.2 x 3.1 by 3.7 cm. Bone window technique throughout the exam shows no significant change in the appearance of the imaged osseous structures. IMPRESSION: 1. Stable hepatic hemangioma. 2. Abnormal enhancing pancreatic tail region as described above. Since represents a change from 09/25/2020 and likely represents inflammatory disease, however, follow-up is recommended. 3. Thickening of the barron of the descending colon and likely inflammatory in nature. Certainly, pancreatitis can produce this finding. 4. Mild right-sided hydronephrosis and proximal hydroureter of uncertain etiology. Consider follow-up. 5. Other findings as described above. ASSESSMENT: 60-year-old W with significant medical history of breast cancer, multiple abdominal surgeries, and pancreatitis who presented with persisting abdominal pain shortly after being diagnosed in [facility] with pancreatitis and an ovarian mass? whose course has been c/b persisting severe abdominal pain without any tolerance of PO and peripancreatic inflammatory stranding and fluid adjacent to the pancreatic body and tail which is boggy, and demonstrates a complex peripancreatic process distal to the tail measuring 2.8 x 3 cm c/f pancreatitis 2/ possible phlegmon/ pseudocyst development vs. potential mass, with inability to do an MRI due to breast expanders EUS. PLAN: #Presumed Pancreatitis w/ normal labs, recurrence possibly c/b potential pseudocyst/phlegmon formation vs. mass, now described as mass in distal pancreas -History of pancreatitis due to gallstones in 1980s, recently this year episode of pancreatitis with small bowel obstruction in July 2020. Per patient no known increased risk for pancreatitis reportedly from her oncologist with her chemo regimen. -Symptom management/supportive care with antiemetics and PO analgesics -Unable to get MRI abdomen with contrast (pancreatic protocol) due to breast expanders, GI recommended transfer for EUS, looking for beds at this time. Cur rently no beds at [facility], [facility], [facility], [facility] and [facility] does not carry capacity for the required study. I spoke with Dr. Xiong about this presumed diagnosis of pancreatitis with a normal lipase and unremarkable CMP since admission with the only finding being this mass on imaging. He saw her and is recommending re-trial of PO with goal being discharged on some form of PO to get the EUS as an outpatient. -Tolerating soft diet -Repeat CT wo/ followed by w/ contrast with pancreatic protocol without interim changes with distal panc mass? -Pain management with PO Percocet 1tab Q4HP and trying to give it pre-PO #Mild hydroureter nephrosis of the right: Without evidence of obstructing mass or calculus. -Patient follows urology outpatient and has ureteral stent history -Cr wnl -I/Os #Recent leukopenia i/s/o recent chemo for active breast cancer -blood cultures NG -WBC now with leukocytosis, reportedly was getting neupogen per prior hospitalist? likely more like neulasta as o/p #Syncope likely vasovagal vs. hypotension related (poor po intake) -No syncope while here, no events on tele -C/w tele -No neurological changes #HLD: -statin held #Depression: -Continue escitalopram, nortriptyline #GI ppx: - PPI IV #CT findin.9 x 4.1 x 4.3 cm left adnexal mass. -Unchanged from previous CT comparison per radiology. Recommendation for nonemergent ultrasound follow-up. Encourage patient follow-up. These findings were discussed with her. Disposition planning: Appears to be tolerating soft diet with PO PRN meds, will plan for d/c home tomorrow for prompt outpatient EUS evaluation since it could not be achieved while inpatient. VS,Best, I+O VS, Best, I+O Laboratory Tests 03/27/21 09:12 03/28/21 06:40 Vital Signs Date Time Temp Pulse Resp B/P (MAP) Pulse Ox O2 Delivery O2 Flow Rate FiO2 03/28/21 07:12 17 03/28/21 06:00 98.4 79 135/76 (95) 94 Room Air I&O- Last 24 Hours up to 6 AM 03/28/21 06:00 Intake Total 750 ml Output Total 1400 ml Balance -650 ml JOAN SEGOVIA MD Mar 28, 2021 09:01
[2021-03-28] MEDS: ONDANSETRON 4 MG TAB PO PRN ×2 (11:47→18:43)
[2021-03-28] MEDS: ESCITALOPRAM OXALATE 10 MG TAB (LEXAPRO) PO SCH (11:48)
[2021-03-28 14:00] VITALS: BP 135/83
[2021-03-28] MEDS: NORTRIPTYLINE 25 MG CAP PO SCH (20:56)
[2021-03-28 22:00] VITALS: BP 134/62
[2021-03-29 06:00] VITALS: BP 112/66
[2021-03-29] MEDS: PERCOCET 5MG/325MG TAB PO PRN ×3 (06:35→16:43)
[2021-03-29 07:03] LABS: HEMATOCRIT 31.3 % (36.0-47.0); HEMOGLOBIN 9.5 g/dl (12.0-15.5); MEAN CORPUSCULAR HEMOGLOBIN 24.8 pg (27.0-33.0); MEAN CORPUSCULAR HGB CONC 30.4 g/dl (32.0-36.5); MEAN CORPUSCULAR VOLUME 81.7 fl (80.0-96.0); PLATELET COUNT, AUTOMATED 480 10^3/uL (150-450); RED BLOOD COUNT 3.83 10^6/uL (4.00-5.40)
[2021-03-29 07:35] LABS: ALBUMIN 2.2 GM/DL (3.2-5.2); ALT/SGPT 14 U/L (12-78); BILIRUBIN,TOTAL 0.2 MG/DL (0.2-1.0); BLOOD UREA NITROGEN 11 MG/DL (7-18); CALCIUM LEVEL 8.9 MG/DL (8.5-10.1); CARBON DIOXIDE LEVEL 35 MEQ/L (21-32); CHLORIDE LEVEL 103 MEQ/L (98-107); CREATININE FOR GFR 0.75 MG/DL (0.55-1.30); GLOMERULAR FILTRATION RATE > 60.0 (>51); GLUCOSE, FASTING 81 MG/DL (70-100); LIPASE 28 U/L (73-393); POTASSIUM SERUM 4.2 MEQ/L (3.5-5.1); SODIUM LEVEL 140 MEQ/L (136-145); TOTAL PROTEIN 5.9 GM/DL (6.4-8.2)
[2021-03-29] MEDS ORDERED: PERCOCET PO (08:25)
--- NOTE | 2021-03-29 09:08 | DS.PDOC ---
Discharge Summary General Date of Admission Mar 19, 2021 at 21:47 Date of Discharge 03/29/2021 Attending Physician: JOAN SEGOVIA MD Discharge Summary PROCEDURES PERFORMED DURING STAY: None ADMITTING DIAGNOSES: Pancreatitis DISCHARGE DIAGNOSES: Presumed recurrent pancreatitis with noted distal pancreatic mass like structure c/f inflammatory pseudocyst vs. phelgmon vs. malignancy Breast cancer, on treatment Hx portal vein thrombus hx SBO Chronic low back pain DEGENERATIVE DISC DISEASE GERD HIATAL HERNIA ALLERGIC RHINITIS GASTROPARESIS Anemia COMPLICATIONS/CHIEF COMPLAINT: Pancreatitis. HISTORY OF PRESENT ILLNESS: 60-year-old W with significant medical history of breast cancer, multiple abdominal surgeries, and pancreatitis who presented with abdominal pain. Patient reported that abdominal pain had been going on for 3 weeks. She was encouraged to go to [place] by her oncologist and was diagnosed with pancreatitis and ovarian mass. Patient went home and unfortunately without improvement came back to [facility]. HOSPITAL COURSE: She presented reporting bilateral lower abdominal pain 8 out of 10 and associated back pain, with associated nausea with the pain, poor p.o., low-grade fevers at home as well as episode of syncope a few days prior, without hitting her head. She otherwise denied sinus congestion, sore throat, productive cough, sob, palpitations, chest pain, or sensory changes. On presentation she had mild luekopenia and anemia i/s/o recent chemotherapy for which she reported recent neulasta and lipase was 51. CT abdomen pelvis completed revealed multiple findings to include pancreatitis with possible phlegmon with lower suspicion n eoplasm in differential, 3.4 cm partially opacified hemiangioma dome of the liver, diverticulosis without diverticulitis, mild hydroureteronephrosis on the right without evidence of obstruction, left adnexal mass 3.9 x 4.1 x 4.3 cm. She was started on aggressive IVF and bowel rest for pancreatitis that was c/b return of severe pain with any introduction of PO. Given the mass like finding on CT, she was recommended for an MRI for better characterization of her findings but unfortunately due to current breast expanders she could not get an MRI. Instead GI recommended that she should be transferred for EUS that could not be done here at [facility]. After trial with 12 hospitals to transfer her for GI evaluation for EUS, we were unable to secure a bed for inpatient transfer. In the meantime, I placed her on an extended bowel rest with IVF and her pain eventually began to improve and I slowly re-introduced a diet up to a soft diet at this time, with some PRN Percocet for pain and ondansetron for nausea. I did do a repeat CT with pancreatic protocol of her abdomen and pelvis that continued to reveal a new complex enhancing mass which measures approximately 3.2 x 3.1 by 3.7 cm by the pancreatic. In speaking with Dr. Xiong and Dr. Mcmanus(onc) they both recommended that the best course of action at this time will be to get to a place where she is tolerating some PO with pain management and refer her to GI in [place] for outpatient evaluation for the EUS. I have communicated personally with her PCP, Dr. Pringle and explained the plan and he will reach out to [facility] to facilitate a prompt referral. DISCHARGE MEDICATIONS: Please see below. ALLERGIES: Please see below. PHYSICAL EXAMINATION ON DISCHARGE: VITAL SIGNS: Please see below CONSTITUTIONAL: NAD EYES: PERRLA, EOM intact HENT, MOUTH: Normocephalic, atraumatic, alopecia, moist mucous membranes NECK: SUPPLE, no JVD, no lymphadenopathy, no carotid bruit CV: Regular rate and rhythm, S1S2 normal, no murmurs/rubs/gallops RESPIRATORY: Clear to auscultation bilaterally, no rales/rhonchi/wheezes GI: Abdominal pain on palpation, worst on left side, normoactive bowel sounds in all 4 quadrants, soft, nondistended, no rebound, no organomegaly MUSCULOSKELETAL: Normal ROM. No cyanosis, clubbing, swelling, joint deformity, e xtremity edema INTEGUMENTARY: Intact, no rashes, no lesions, no erythema NEUROLOGIC: Cranial Nerves II-XII are intact, no focal deficits PSYCHIATRIC: Mood and affect are normal CURRENT MEDICATIONS: Please see below LABORATORY DATA: Please see below. IMAGING: CT A/P with IV contrast: Liver: 3.4 cm partially opacified hemangioma dome of the liver. Gallbladder and bile ducts: There has been a cholecystectomy. Dilatation of the intra and extrahepatic biliary radicles more dilated than typically demonstrated in the post cholecystectomy state. Common bile duct measures 2.3 cm maximally. No evidence of choledocholithiasis. Distal duct tapers at the ampullary. Further evaluation may be necessary to exclude the possibility of a stricture or stricturing neoplasm in the appropriate clinical setting. Correlation with biliary chemistries suggested. Pancreas: There is peripancreatic inflammatory stranding and fluid adjacent to the pancreatic body and tail which is boggy, and demonstrates a complex peripancreatic process distal to the tail measuring 2.8 x 3 cm. Findings most consistent with pancreatitis and possible phlegmon/ pseudocyst development. The possibility of a pancreatic neoplasm not excluded but considered less likely in view of the recently normal examination of the pancreas. Spleen: Normal. No splenomegaly. Adrenal glands: Normal. No mass. Kidneys and ureters: Mild hydroureteronephrosis on the right without evidence of obstructing mass or calculus. Mild thickening of the wall of the right renal pelvis and calyces. This patient is status post removal of a double pigtail stent catheter. Findings may be related to recent passage of a calculus. Clinical correlation to exclude other etiologies including infection or occult neoplasm suggested. Stomach and bowel: Mild diverticulosis is present in the left colon. No diverticulitis. Appendix: No evidence of appendicitis. Intraperitoneal space: Unremarkable. No free air. No significant fluid collection. Vasculature: The aortoiliac vessels demonstrate mild atherosclerotic calcification. Lymph nodes: Unremarkable. No enlarged lymph nodes. Urinary bladder: Unremarkable as visualized. Reproductive: 3.9 x 4.1 x 4.3 cm left adnexal mass unchanged in comparison to the prior study. As the lesion may represent a solid mass further characterization with nonemergent ultrasound suggested. 2.3 cm exophytic cystic lesion likely arising from the right ovary again redemonstrated in stable. Further evaluation with ultrasound suggested. Bones/joints: Moderate to severe central spinal stenosis L4-L5. Soft tissues: Bilateral breast implants. Diastasis of the mid rectus sheath. Small umbilical hernia without incarceration. IMPRESSION: 1. 3.4 cm partially opacified hemangioma dome of the liver. 2. There has been a cholecystectomy. 3. Dilatation of the intra and extrahepatic biliary radicles more dilated than typically demonstrated in the post cholecystectomy state. No evidence of choledocholithiasis. As described above further evaluation may be necessary to exclude the possibility of a stricture or stricturing neoplasm in the appropriate clinical setting. Correlation with biliary chemistries suggested. 4. Status post removal of a double pigtail stent in the right collecting system with residual dilatation of the right collecting system. Differential diagnosis as offered above. 5. Mild diverticulosis is present in the left colon. No diverticulitis. 6. There is peripancreatic inflammatory stranding and fluid adjacent to the pancreatic body and tail which is boggy, and demonstrates a complex peripancreatic process distal to the tail measuring 2.8 x 3 cm. Findings most consistent with pancreatitis and possible phlegmon/ pseudocyst development. The possibility of a pancreatic neoplasm not excluded but considered less likely in view of the recently normal examination of the pancreas. 03/25: Repeat CT A/P without followed by with IV contrast: Since the prior exam small bilateral pleural effusions have developed left greater than right. Since the prior exam mild bibasilar curvilinear densities have developed left greater than right. There is no significant change in the appearance of the imaged osseous structures. The pre contrast enhanced portion of the exam shows mild intrahepatic ductal dilatation consistent with the patient's cholecystectomy state. The liver and spleen are unchanged. Note is again made of an hemangioma in the hepatic dome status quo. This has been stable since 02/09/2017. There are no new enhancing hepatic abnormalities. The adrenal glands, left kidney are unremarkable. There is mild right-sided hydronephrosis and proximal right hydroureter. There is no significant change in appearance of the abdominal aorta or para-regions. There is evidence of circumferential mural thickening of the descending colon. There is no evidence of free fluid or free air. The pancreatic tail there is a new complex enhancing mass which measures approximately 3.2 x 3.1 by 3.7 cm. Bone window technique throughout the exam shows no significant change in the appearance of the imaged osseous structures. IMPRESSION: 1. Stable hepatic hemangioma. 2. Abnormal enhancing pancreatic tail region as described above. Since repr esents a change from 09/25/2020 and likely represents inflammatory disease, however, follow-up is recommended. 3. Thickening of the barron of the descending colon and likely inflammatory in nature. Certainly, pancreatitis can produce this finding. 4. Mild right-sided hydronephrosis and proximal hydroureter of uncertain etiology. Consider follow-up. 5. Other findings as described above. PROGNOSIS: Good ACTIVITY: As tolerated DIET: soft diet, as tolerated DISCHARGE PLAN: Home with percocet PRN for pain, soft diet, prompt PCP follow up in anticipation of prompt referral to [facility]. DISPOSITION: home DISCHARGE INSTRUCTIONS: Home with percocet PRN for pain, soft diet, prompt PCP follow up in anticipation of prompt referral to [facility]. ITEMS TO FOLLOWUP ON ON OUTPATIENT: Abdominal pain Pancreatic tail mass like lesion investigation Oncology follow up DISCHARGE CONDITION: Stable TIME SPENT ON DISCHARGE: 50 minutes. Vital Signs/I&Os Vital Signs Date Time Temp Pulse Resp B/P (MAP) Pulse Ox O2 Delivery O2 Flow Rate FiO2 03/29/21 06:35 17 03/29/21 06:00 97.5 78 112/66 (81) 93 Room Air I&O- Last 24 Hours up to 6 AM 03/29/21 06:00 Intake Total 500 ml Balance 500 ml Laboratory Data Labs 24H Laboratory Tests 2 03/29/21 06:32: Nucleated Red Blood Cells % (auto) 0.2H, Anion Gap 2L, Glomerular Filtration Rate > 60.0, Calcium Level 8.9, Total Bilirubin 0.2#, Aspartate Amino Transf (AST/SGOT) 12, Alanine Aminotransferase (ALT/SGPT) 14, Alkaline Phosphatase 105, Total Protein 5.9L, Albumin 2.2L, Albumin/Globulin Ratio 0.6L, Lipase 28L CBC/BMP Laboratory Tests 03/29/21 06:32 Microbiology Microbiology 03/19/21 Blood Culture - Final, Complete NO GROWTH AFTER 5 DAYS 03/19/21 Blood Culture - Final, Complete NO GROWTH AFTER 5 DAYS Discharge Medications Scheduled Atorvastatin Calcium (Atorvastatin Calcium) 40 Mg Tablet, 40 MG PO DAILY, (Reported) Docusate Sodium (Docusate Sodium) 100 Mg Capsule, 100 MG PO BID, (Reported) Ergocalciferol (Vitamin D2) (Vitamin D2) 50,000 Units Cap, 50,000 UNITS PO QWEEK, (Reported) SATURDAYS Escitalopram Oxalate (Lexapro) 20 Mg Tablet, 20 MG PO DAILY, (Reported) Famotidine (Famotidine) 20 Mg Tablet, 20 MG PO QHS, (Reported) Fenofibrate (Fenofibrate) 54 Mg Tablet, 54 MG PO DAILY, (Reported) Ferrous Sulfate (Ferrous Sulfate) 325 Mg Tablet, 325 MG PO 3XW, (Reported) MONDAY, MONDAY AND MONDAY Lidocaine/Prilocaine (Lidocaine-Prilocaine Cream) 2.5%/2.5% Cream..g., 1 DOSE TOP ASDIRECTED Apply dime size to port area. Do not rub in, cover with saran wrap to protect clothing. Magnesium Oxide (Magnesium) 400 Mg Capsule, 400 MG PO DAILY, (Reported) Nortriptyline HCl (Nortriptyline HCl) 25 Mg Capsule, 25 MG PO QHS, (Reported) Pantoprazole Sodium (Pantoprazole Sodium) 40 Mg Tablet.dr, 40 MG PO DAILY, (Reported) Trospium Chloride (Trospium Chloride) 20 Mg Tablet, 20 MG PO BID, (Reported) Scheduled PRN Naproxen (Naproxen) 500 Mg Tablet.dr, 500 MG PO BID PRN for MILD/MODERATE PAIN (PS 1-7), (Reported) Ondansetron HCl (Ondansetron HCl) 8 Mg Tablet, 8 MG PO Q12H PRN for NAUSEA OR VOMITING Oxycodone HCl (Oxycodone HCl) 5 Mg Tablet, 5 MG PO Q4H PRN for SEVERE PAIN (PS 8-10), (Reported) Oxycodone/Acetaminophen (Oxycodone-Acetaminophen 5-325) 1 Each Tablet, 1 TAB PO Q6HP PRN for MODERATE PAIN (PS 5-7) Allergies Coded Allergies: adhesive (Verified Allergy, Mild, redness, itching, 12/25/20) JOAN SEGOVIA MD Mar 29, 2021 09:08
[2021-03-29] MEDS: PANTOPRAZOLE 40MG TAB (PROTONIX) PO SCH (09:11)
[2021-03-29] MEDS: ENOXAPARIN 40MG/0.4ML SYRINGE (J1650 PER 10MG) SC SCH (09:11)
[2021-03-29] MEDS: ESCITALOPRAM OXALATE 10 MG TAB (LEXAPRO) PO SCH (12:25)
[2021-03-29] MEDS: ACETAMINOPHEN TAB 650MG DOSE (2X325MG) PO PRN (12:27)
[2021-03-29 14:00] VITALS: BP 127/89
== END 2021-03-29 17:41 | disposition home or self-care (01) | DRG 282 ==
LOC: M ED 17:03 → M ED INP 21:47 → ENRESERV 03-20 01:14 → M MSPAV 03-20 01:59
PROVIDERS: ADMIT Internal Medicine; ATTEND Internal Medicine
DX: K85.90 Acute pancreatitis without necrosis or infection, unspecified (principal); D61.810 Antineoplastic chemotherapy induced pancytopenia; C50.912 Malignant neoplasm of unspecified site of left female breast; N13.4 Hydroureter; R55 Syncope and collapse; K21.9 Gastro-esophageal reflux disease without esophagitis; K44.9 Diaphragmatic hernia without obstruction or gangrene; M54.59 Other low back pain; K57.30 Diverticulosis of large intestine without perforation or abscess without bleeding; Z79.899 Other long term (current) drug therapy; Z92.21 Personal history of antineoplastic chemotherapy; F32.9 Major depressive disorder, single episode, unspecified; K86.89 Other specified diseases of pancreas

== ENCOUNTER → 2021-04-07 | Outpatient (REF) | payer OTHER ==
[~2021-04-07] MED LIST changes: +FERR1TAB8 PO; +NAPR500T6 PO; +NORT25CA2 PO; +OXYC-517 PO; +PERCOCET PO
[2021-04-08 11:57] LABS: BASO # 0.1 10^3/uL (0.0-0.2); BASO % 0.9 % (0.0-1.0); EOS % 0.3 % (0.0-3.0); HEMATOCRIT 33.9 % (36.0-47.0); HEMOGLOBIN 10.2 g/dl (12.0-15.5); LYMPH # 1.7 10^3/uL (1.5-5.0); LYMPH % 13.5 % (24.0-44.0); MEAN CORPUSCULAR HEMOGLOBIN 24.8 pg (27.0-33.0); MEAN CORPUSCULAR HGB CONC 30.1 g/dl (32.0-36.5); MEAN CORPUSCULAR VOLUME 82.5 fl (80.0-96.0); MONO # 1.7 10^3/uL (0.0-0.8); MONO % 13.1 % (2.0-8.0); NEUTROPHILS # 8.8 10^3/uL (1.5-8.5); NEUTROPHILS % 70.1 % (36.0-66.0); PLATELET COUNT, AUTOMATED 475 10^3/uL (150-450); RED BLOOD COUNT 4.11 10^6/uL (4.00-5.40); WHITE BLOOD COUNT 12.6 10^3/uL (4.0-10.0)
[2021-04-08 12:35] LABS: ALBUMIN 2.8 GM/DL (3.2-5.2); ALT/SGPT 20 U/L (12-78); BILIRUBIN,TOTAL 0.3 MG/DL (0.2-1.0); BLOOD UREA NITROGEN 11 MG/DL (7-18); CALCIUM LEVEL 10.1 MG/DL (8.5-10.1); CARBON DIOXIDE LEVEL 33 MEQ/L (21-32); CHLORIDE LEVEL 102 MEQ/L (98-107); CREATININE FOR GFR 0.81 MG/DL (0.55-1.30); GLOMERULAR FILTRATION RATE > 60.0 (>51); GLUCOSE, FASTING 101 MG/DL (70-100); LIPASE 39 U/L (73-393); POTASSIUM SERUM 4.9 MEQ/L (3.5-5.1); SODIUM LEVEL 134 MEQ/L (136-145); TOTAL PROTEIN 7.2 GM/DL (6.4-8.2)
== END ==
LOC: M SFHCCLAY 15:15
PROVIDERS: ATTEND Family Medicine
DX: K86.1 Other chronic pancreatitis (principal); N13.30 Unspecified hydronephrosis; C50.912 Malignant neoplasm of unspecified site of left female breast

== ENCOUNTER → 2021-04-08 | Outpatient (CLI) | payer OTHER ==
[~2021-04-08] MED LIST changes: +GASTROGRAFIN SOLUTION 30ML (Q9963) As Ordered ONE; +ISOVUE-370 76% 100ML VIAL As Ordered ONE
--- NOTE | 2021-04-08 16:35 | REPVR ---
PROCEDURE INFORMATION: Exam: CT Abdomen And Pelvis With Contrast Exam date and time: 04/08/2021 3:45 PM Age: 60 years old Clinical indication: Condition or disease; Pancreatic condition; Pancreatitis; Additional info: Chronic pancreatitis, malignant breast CA TECHNIQUE: Imaging protocol: Computed tomography of the abdomen and pelvis with contrast. Radiation optimization: All CT scans at this facility use at least one of these dose optimization techniques: automated exposure control; mA and/or kV adjustment per patient size (includes targeted exams where dose is matched to clinical indication); or iterative reconstruction. Contrast material: ISOVUE 370; Contrast volume: 100 ml; Contrast route: INTRAVENOUS (IV); COMPARISON: CT ABD W/O FOLL BY WITH CONTRA 03/25/2021 1:43 PM The prior report is not available for correlation at the time of interpretation. FINDINGS: Tubes, catheters and devices: Termination of central venous catheter in the proximal right atrium. Lungs: Interstitial prominence , mild parenchymal stranding, and trace left lower lobe airspace disease. Liver: 3.4 cm hemangioma in the posterior hepatic dome, along with focal fatty infiltration about the falciform ligament. Gallbladder and bile ducts: Status post cholecystectomy with marked residual biliary ductal dilatation. Pancreas: Poorly defined hypodensity and cystic change in the pancreatic tail region and lesser sac, the sequela of chronic pancreatitis. Mild pancreatic ductal dilatation. Spleen: Normal. No splenomegaly. Adrenal glands: Unremarkable adrenals. Kidneys and ureters: Marked right-sided hydronephrosis, which has worsened when compared to the previous study. Stomach and bowel: Gastric wall thickening and cystic change in association with chronic pancreatitis, including a complex 3.2 cm and 2.3 cm cysts. Bowel dilatation, disproportionately involving the colon, along with copious stool. Appendix: No acute appendicitis. Intraperitoneal space: No dependent free fluid in the pelvis. Vasculature: Vascular calcification. No abdominal aortic aneurysm. Chronic splenic vein occlusion. Patency of the portal vein. Lymph nodes: Subcentimeter lymph nodes. Urinary bladder: Normal bladder morphology. Reproductive: Inhomogeneous attenuation , enlargement, calcifications in the postmenopausal uterus, which can be better evaluated with ultrasound if clinically indicated. Status post tubal ligation. High attenuation 2.2 cm cyst posterior to the uterus, presumably ovarian in etiology. Bones/joints: Osteopenia. Degenerative change and disc bulging. Mild scoliosis. Soft tissues: Bilateral breast implants. Laxity of the anterior abdominal wall musculature, in the setting of herniorrhaphy. Small fat containing umbilical hernia. IMPRESSION: 1. Status post cholecystectomy with marked residual biliary ductal dilatation. 2. Poorly defined hypodensity and cystic change in the pancreatic tail region and lesser sac, the sequela of chronic pancreatitis. 3. Gastric wall thickening and cystic change in association with chronic pancreatitis, including a complex 3.2 cm and 2.3 cm cysts. 4. Chronic splenic vein occlusion. 5. Marked right-sided hydronephrosis, which has worsened when compared to the previous study. 6. Additional findings as described above. Electronically signed by: Matt Falcon On 04/08/2021 16:34:58 PM
== END ==
LOC: M RAD 14:28
PROVIDERS: ATTEND Family Medicine
DX: K86.1 Other chronic pancreatitis (principal); N13.30 Unspecified hydronephrosis; C50.912 Malignant neoplasm of unspecified site of left female breast
CPT/HCPCS: 74177; Q9963; Q9967

== ENCOUNTER → 2021-04-09 | Outpatient (REF) | payer OTHER ==
[~2021-04-09] MED LIST changes: -GASTROGRAFIN SOLUTION 30ML (Q9963) As Ordered ONE; -ISOVUE-370 76% 100ML VIAL As Ordered ONE
== END ==
LOC: M SFHCCLAY 16:02
PROVIDERS: ATTEND Family Medicine
DX: K86.1 Other chronic pancreatitis (principal)

== ENCOUNTER → 2021-04-19 | Outpatient (REF) | payer OTHER ==
[2021-04-19 11:56] LABS: BASO # 0.1 10^3/uL (0.0-0.2); BASO % 0.5 % (0.0-1.0); EOS # 0.2 10^3/uL (0.0-0.5); EOS % 1.3 % (0.0-3.0); HEMATOCRIT 33.6 % (36.0-47.0); HEMOGLOBIN 10.1 g/dl (12.0-15.5); LYMPH # 1.3 10^3/uL (1.5-5.0); MEAN CORPUSCULAR HEMOGLOBIN 24.6 pg (27.0-33.0); MEAN CORPUSCULAR HGB CONC 30.1 g/dl (32.0-36.5); MONO # 2.2 10^3/uL (0.0-0.8); MONO % 11.9 % (2.0-8.0); NEUTROPHILS # 14.2 10^3/uL (1.5-8.5); NEUTROPHILS % 77.8 % (36.0-66.0); PLATELET COUNT, AUTOMATED 379 10^3/uL (150-450); WHITE BLOOD COUNT 18.3 10^3/uL (4.0-10.0)
[2021-04-19 12:06] LABS: APPEARANCE, URINE CLEAR (CLEAR); BACTERIA, URINE AUTO NEGATIVE (NEGATIVE); BILIRUBIN, URINE AUTO NEGATIVE (NEGATIVE); BLOOD, URINE BLOOD NEGATIVE (NEGATIVE); COLOR, URINE YELLOW (YELLOW); GLUCOSE, URINE (UA) AUTO NEGATIVE (NEGATIVE); KETONE, URINE AUTO NEGATIVE (NEGATIVE); LEUKOCYTE ESTERASE, URINE AUTO NEGATIVE (NEGATIVE); NITRITE, URINE AUTO NEGATIVE (NEGATIVE); PROTEIN, URINE AUTO NEGATIVE (NEGATIVE); RBC, URINE AUTO 0 /HPF (0-3); SPECIFIC GRAVITY URINE AUTO 1.008 (1.002-1.035); SQUAMOUS EPITHELIAL CELL UR AU 1 /HPF (0-6); WBC, URINE AUTO 2 /HPF (0-3)
[2021-04-19 13:02] LABS: ALBUMIN 2.6 GM/DL (3.2-5.2); ALT/SGPT 17 U/L (12-78); BILIRUBIN,TOTAL 0.4 MG/DL (0.2-1.0); BLOOD UREA NITROGEN 12 MG/DL (7-18); CARBON DIOXIDE LEVEL 28 MEQ/L (21-32); CHLORIDE LEVEL 96 MEQ/L (98-107); CREATININE FOR GFR 0.93 MG/DL (0.55-1.30); GLOMERULAR FILTRATION RATE > 60.0 (>51); GLUCOSE, FASTING 104 MG/DL (70-100); LIPASE 50 U/L (73-393); POTASSIUM SERUM 4.9 MEQ/L (3.5-5.1); SODIUM LEVEL 132 MEQ/L (136-145); TOTAL PROTEIN 7.3 GM/DL (6.4-8.2)
== END ==
LOC: M SFHCCLAY 08:23
PROVIDERS: ATTEND Family Medicine
DX: K86.1 Other chronic pancreatitis (principal); K86.2 Cyst of pancreas; R82.998 Other abnormal findings in urine

== ENCOUNTER → 2021-05-04 | Outpatient (REF) | payer OTHER ==
[2021-05-04 16:14] LABS: BASO # 0.1 10^3/uL (0.0-0.2); BASO % 0.7 % (0.0-1.0); EOS # 0.2 10^3/uL (0.0-0.5); EOS % 1.5 % (0.0-3.0); HEMATOCRIT 34.6 % (36.0-47.0); HEMOGLOBIN 10.2 g/dl (12.0-15.5); LYMPH # 1.5 10^3/uL (1.5-5.0); LYMPH % 13.2 % (24.0-44.0); MEAN CORPUSCULAR HEMOGLOBIN 24.7 pg (27.0-33.0); MEAN CORPUSCULAR HGB CONC 29.5 g/dl (32.0-36.5); MEAN CORPUSCULAR VOLUME 83.8 fl (80.0-96.0); MONO % 8.9 % (2.0-8.0); NEUTROPHILS % 72.4 % (36.0-66.0); PLATELET COUNT, AUTOMATED 432 10^3/uL (150-450); RED BLOOD COUNT 4.13 10^6/uL (4.00-5.40)
[2021-05-04 16:15] LABS: HEMATOCRIT 34.7 % (36.0-47.0); HEMOGLOBIN 9.9 g/dl (12.0-15.5); MEAN CORPUSCULAR HEMOGLOBIN 24.3 pg (27.0-33.0); MEAN CORPUSCULAR HGB CONC 28.5 g/dl (32.0-36.5); MEAN CORPUSCULAR VOLUME 85.3 fl (80.0-96.0); PLATELET COUNT, AUTOMATED 432 10^3/uL (150-450); RED BLOOD COUNT 4.07 10^6/uL (4.00-5.40); WHITE BLOOD COUNT 12.8 10^3/uL (4.0-10.0)
[2021-05-04 16:44] LABS: ALBUMIN 2.7 GM/DL (3.2-5.2); ALT/SGPT 16 U/L (12-78); BILIRUBIN,TOTAL 0.3 MG/DL (0.2-1.0); BLOOD UREA NITROGEN 12 MG/DL (7-18); CALCIUM LEVEL 9.7 MG/DL (8.5-10.1); CARBON DIOXIDE LEVEL 29 MEQ/L (21-32); CHLORIDE LEVEL 100 MEQ/L (98-107); CREATININE FOR GFR 0.82 MG/DL (0.55-1.30); GLOMERULAR FILTRATION RATE > 60.0 (>51); GLUCOSE, FASTING 150 MG/DL (70-100); POTASSIUM SERUM 4.2 MEQ/L (3.5-5.1); SODIUM LEVEL 137 MEQ/L (136-145); TOTAL PROTEIN 7.4 GM/DL (6.4-8.2)
== END ==
LOC: M SFHCCLAY 10:50
PROVIDERS: ATTEND Urology
DX: D72.829 Elevated white blood cell count, unspecified (principal); K86.2 Cyst of pancreas; N13.30 Unspecified hydronephrosis

== ENCOUNTER → 2021-05-10 | Outpatient (REF) | payer OTHER ==
[~2021-05-10] MED LIST changes: +BACT800T5 PO; +CREO24CA PO; +FAMO20TA5 PO; +ONDA-84 PO; -ONDA8TAB10 PO; +OXYB5TAB10 PO; +PHEN1TAB73 PO; -PROC10TA4 PO; +PROC10TA5 PO
== END ==
LOC: M SMT 15:48
PROVIDERS: ATTEND Urology
DX: N13.30 Unspecified hydronephrosis (principal)

== ENCOUNTER → 2021-05-12 | Outpatient (REF) | payer OTHER ==
[2021-05-12 16:50] LABS: APPEARANCE, URINE CLEAR (CLEAR); BACTERIA, URINE AUTO NEGATIVE (NEGATIVE); BILIRUBIN, URINE AUTO NEGATIVE (NEGATIVE); BLOOD, URINE BLOOD NEGATIVE (NEGATIVE); COLOR, URINE YELLOW (YELLOW); GLUCOSE, URINE (UA) AUTO NEGATIVE (NEGATIVE); KETONE, URINE AUTO NEGATIVE (NEGATIVE); LEUKOCYTE ESTERASE, URINE AUTO NEGATIVE (NEGATIVE); MUCUS, URINE SMALL (NEGATIVE); NITRITE, URINE AUTO NEGATIVE (NEGATIVE); PROTEIN, URINE AUTO NEGATIVE (NEGATIVE); RBC, URINE AUTO 0 /HPF (0-3); SPECIFIC GRAVITY URINE AUTO 1.014 (1.002-1.035); SQUAMOUS EPITHELIAL CELL UR AU 0 /HPF (0-6); UROBILINOGEN, URINE AUTO 0.2 mg/dL (0.0-2.0); WBC, URINE AUTO 1 /HPF (0-3)
== END ==
LOC: M SFHCCLAY 10:58
PROVIDERS: ATTEND Family Medicine
DX: N13.30 Unspecified hydronephrosis (principal)

== ENCOUNTER → 2021-05-12 | Outpatient (CLI) | payer OTHER | LOC: M CLY 11:19 | PROVIDERS: ATTEND Family Medicine | DX: Z01.818 Encounter for other preprocedural examination (principal); K21.9 Gastro-esophageal reflux disease without esophagitis ==

== ENCOUNTER → 2021-05-17 | Outpatient (CLI) | payer OTHER ==
[~2021-05-17] MED LIST changes: -BACT800T5 PO; -CREO24CA PO; -FAMO20TA5 PO; -ONDA-84 PO; +ONDA8TAB10 PO; -OXYB5TAB10 PO; -PHEN1TAB73 PO; +PROC10TA4 PO; -PROC10TA5 PO
== END ==
LOC: M LABSMTC 09:43
PROVIDERS: ATTEND Anesthesiology
DX: Z01.812 Encounter for preprocedural laboratory examination (principal); Z20.822 Contact with and (suspected) exposure to COVID-19

== ENCOUNTER 2021-05-21 10:28 | Day surgery (SDC) | payer OTHER ==
[~2021-05-21] VITALS: Ht 167.6 cm; Wt 84.1 kg
[~2021-05-21 10:28] MED LIST changes: +CIPROFLOXACIN 400 MG in IV 1 EA IV ONE; +LIDOCAINE 1% MDV 20ML VIAL SQ PRN; +LR 1,000 ML IV ONE
[2021-05-21] MEDS ORDERED: LIDOCAINE 2% 100MG/5ML SDV (FOR ANES.) As Ordered ONE (13:09)
[2021-05-21] MEDS ORDERED: ACETAMINOPHEN 1000MG 100ML IV BTL (OFIRMEV) (J0131 PER 10MG) As Ordered ONE (13:09)
[2021-05-21] MEDS ORDERED: MIDAZOLAM INJ 2MG/2ML VIAL (J2250 PER 1MG) As Ordered ONE (13:09)
[2021-05-21] MEDS ORDERED: ONDANSETRON 4MG/2ML VIAL As Ordered ONE (13:09)
[2021-05-21] MEDS ORDERED: propofoL 200 MG/20 ML VIAL As Ordered ONE (13:09)
[2021-05-21] MEDS ORDERED: fentaNYL 100 MCG/2 ML INJECTION (J3010) As Ordered ONE (13:09)
[2021-05-21] MEDS ORDERED: dexameTHASONE 4 MG/ML 1ML VIAL (J1100 PER 1MG) As Ordered ONE (13:09)
[2021-05-21] MEDS ORDERED: CONRAY-60 60% 50ML VIAL (Q9961) As Ordered ONE (13:45)
--- NOTE | 2021-05-21 14:49 | ROOPDOC ---
[facility] Report Of Operation Report of Operation DATE OF PROCEDURE: 05/21/21 PREPROCEDURE DIAGNOSES: [Obstructed right urinary tract, right hydroureteronephrosis]. POSTPROCEDURE DIAGNOSES: [Right ureteral stricture, right ureteral mucosal abnormality]. PROCEDURE PERFORMED: [cysto, fluoro, retrograde, rigid and flexible ureteroscopy, ureteral biopsies, balloon dilatation of ureteral stricture,stent placement]. SURGEON: [J Luis Baumann, SLOT MANAGER: [None], MD ANESTHESIA: [General]. ESTIMATED BLOOD LOSS: Approximately [minimal] mL. COMPLICATIONS: [None]. REMARKS: [60-year-old white female. Imaging shows right hydroureteronephrosis. Surgery arranged to evaluate and possibly manage. Informed consent obtained. Risks discussed such as infection, bleeding, pain, scarring, injury to urinary tract, risks of anesthesia and others.]. FINDINGS: SPECIMENS REMOVED: [Right ureteral biopsies x 2] PROCEDURE NOTE: . DESCRIPTION OF PROCEDURE: [I met with the patient in the preop area and again discussed surgery. Questions answered. Patient wished to proceed. Patient stated she has intermittent right flank pain. She is undergoing chemotherapy for breast cancer. She has had chronic problems with her pancreas. In the past she had a right ureteral stent. From what I can tell, the stent was in because of obstruction caused by a process involving her pancreas. Patient brought to the OR room. General anesthesia secured without difficulty. Dorsolithotomy position. Well-padded. Surgery done under antimicrobial coverage. Timeout performed performed rigid cystoscopy performed. Bladder thoroughly examined. No pathology. Normal urethral mucosa. A retrograde pyelogram was obtained on the right using a 5 Swedish open-ended ureteral catheter. It was done under fluoroscopic guidance. A ureteral stricture was noted involving the distal third of the ureter. A wire was then advanced up the ureter as seen using fluoroscopy. The wire behaved as a safety wire during rigid ureteroscopy which was performed next. At the level of the stricture noted on retrograde pyelography there was a narrowing of the ureter. Instead of a distinct stricture with overlying normal mucosa, the mucosa in this area was heaped up a bit as if edematous. Using a Pir[place]ha biopsy forceps, 2 biopsies were taken. Before taking the biopsies I attempted to negotiate the area with the rigid ureteroscope but was unable to. I then performed flexible ureteroscopy. The flexible ureteroscope was advanced over a second wire. No difficulty was encountered in advancing the flexible ureteroscope. The entire ureter was inspected. The only abnormality was at the level of the stricture. Again, 2 biopsies were obtained. I then dilated the area with a 4 cm by 15 Swedish balloon. After this a 6 Swedish multilength stent was placed using the Seldinger technique. Patient tolerated everything well left the room in satisfactory condition.]. EMMA BAUMANN MD May 21, 2021 14:49
[2021-05-21] MEDS ORDERED: OXYB5TAB10 PO (14:55)
[2021-05-21] MEDS ORDERED: BACT800T5 PO (14:55)
[2021-05-21] MEDS ORDERED: PHEN1TAB73 PO (14:55)
[2021-05-21] MEDS ORDERED: HYDROMORPHONE HCL 0.5 MG/ 0.5 ML SYRINGE (J1170 PER 1) IV PRN (15:10)
[2021-05-21] MEDS ORDERED: fentaNYL 100 MCG/2 ML INJECTION (J3010) IV PRN (15:10)
[2021-05-21] MEDS ORDERED: LR 1,000 ML IV SCH ×2 (15:10)
[2021-05-21] MEDS ORDERED: ONDANSETRON 4MG/2ML VIAL IV PRN (15:10)
[2021-05-21] MEDS ORDERED: oxyCODONE 5MG TAB PO PRN (15:10)
--- NOTE | 2021-05-21 15:23 | REP ---
INDICATION: RIGHT STENT PLACEMENT. COMPARISON: 08/08/2020. TECHNIQUE: Three C-arm views abdomen and pelvis. FINDINGS: Contrast partially opacifies the dilated right renal collecting system. There is partial opacification of the right ureter. Right ureteral stent is placed. The proximal end is in the right renal pelvis. The distal end is in the urinary bladder. IMPRESSION: 58 seconds fluoroscopy time utilized. <Electronically signed by Gallo Guzman > 05/21/21 [id number]
[2021-05-21 16:00] VITALS: BP 139/67
== END 2021-05-21 16:26 | disposition home or self-care (01) ==
LOC: M SDC 10:28
PROVIDERS: ATTEND Urology
DX: N13.5 Crossing vessel and stricture of ureter without hydronephrosis (principal); N13.39 Other hydronephrosis; K21.9 Gastro-esophageal reflux disease without esophagitis; D72.829 Elevated white blood cell count, unspecified; D50.9 Iron deficiency anemia, unspecified; Z87.891 Personal history of nicotine dependence; C50.912 Malignant neoplasm of unspecified site of left female breast; K86.1 Other chronic pancreatitis; M54.42 Lumbago with sciatica, left side; E78.2 Mixed hyperlipidemia; K44.9 Diaphragmatic hernia without obstruction or gangrene; K22.70 Barrett's esophagus without dysplasia; M19.90 Unspecified osteoarthritis, unspecified site; F32.9 Major depressive disorder, single episode, unspecified; R51.9 Headache, unspecified; R06.83 Snoring; Z87.442 Personal history of urinary calculi; Z91.048 Other nonmedicinal substance allergy status; Z79.899 Other long term (current) drug therapy; Z79.1 Long term (current) use of non-steroidal anti-inflammatories (NSAID); Z79.891 Long term (current) use of opiate analgesic
CPT/HCPCS: 52332; 52354; 74420; 88305; C1769; C2617; J0131; J0744; J1100; J2250; J2405; J3010; Q9961

== ENCOUNTER → 2021-06-14 | Outpatient (REF) | payer OTHER ==
[~2021-06-14] MED LIST changes: +BACT800T5 PO; -CIPROFLOXACIN 400 MG in IV 1 EA IV ONE; -LIDOCAINE 1% MDV 20ML VIAL SQ PRN; -LR 1,000 ML IV ONE; +OXYB5TAB10 PO; +PHEN1TAB73 PO
== END ==
LOC: M SMT 16:57
PROVIDERS: ATTEND Urology
DX: N13.5 Crossing vessel and stricture of ureter without hydronephrosis (principal)

== ENCOUNTER → 2021-07-01 | Outpatient (CLI) | payer OTHER ==
[~2021-07-01] MED LIST changes: +ONDA-84 PO; -ONDA8TAB10 PO; -PROC10TA4 PO; +PROC10TA5 PO
== END ==
LOC: M WHC 11:19
PROVIDERS: ATTEND Specialist
DX: N83.202 Unspecified ovarian cyst, left side (principal)

== ENCOUNTER → 2021-07-20 | Outpatient (REF) | payer OTHER ==
[~2021-07-20] MED LIST changes: +CREO24CA PO
[2021-07-20 16:17] LABS: HEMOGLOBIN 12.8 g/dl (12.0-15.5); MEAN CORPUSCULAR HEMOGLOBIN 27.2 pg (27.0-33.0); MEAN CORPUSCULAR HGB CONC 31.2 g/dl (32.0-36.5); MEAN CORPUSCULAR VOLUME 87.2 fl (80.0-96.0); PLATELET COUNT, AUTOMATED 235 10^3/uL (150-450); WHITE BLOOD COUNT 5.2 10^3/uL (4.0-10.0)
[2021-07-20 16:38] LABS: PERCENT SATURATION 27.9 % (13.2-45.0)
== END ==
LOC: M SFHCCLAY 10:19
PROVIDERS: ATTEND Family Medicine
DX: D50.9 Iron deficiency anemia, unspecified (principal)

== ENCOUNTER → 2021-07-21 | Outpatient (REF) | payer OTHER | LOC: M LAB REF 12:09 | PROVIDERS: ATTEND Plastic Surgery Surgery of the Hand | DX: S21.002A Unspecified open wound of left breast, initial encounter (principal); W18.30XA Fall on same level, unspecified, initial encounter; Y92.009 Unspecified place in unspecified non-institutional (private) residence as the place of occurrence of the external cause ==

== ENCOUNTER → 2021-07-21 | Outpatient (REF) | payer OTHER ==
[2021-07-22 12:21] LABS: ALBUMIN 3.6 GM/DL (3.2-5.2); ALT/SGPT 23 U/L (12-78); BILIRUBIN,TOTAL 0.2 MG/DL (0.2-1.0); BLOOD UREA NITROGEN 12 MG/DL (7-18); CALCIUM LEVEL 9.2 MG/DL (8.5-10.1); CARBON DIOXIDE LEVEL 31 MEQ/L (21-32); CHLORIDE LEVEL 104 MEQ/L (98-107); CREATININE FOR GFR 0.66 MG/DL (0.55-1.30); GLOMERULAR FILTRATION RATE > 60.0 (>51); GLUCOSE, FASTING 89 MG/DL (70-100); POTASSIUM SERUM 5.9 MEQ/L (3.5-5.1); SODIUM LEVEL 139 MEQ/L (136-145); TOTAL PROTEIN 7.2 GM/DL (6.4-8.2)
== END ==
LOC: M LABSMT 14:44
PROVIDERS: ATTEND Urology
DX: N13.5 Crossing vessel and stricture of ureter without hydronephrosis (principal)

== ENCOUNTER 2021-08-09 16:51 | Observation (INO) | payer OTHER ==
[~2021-08-09 16:51] MED LIST changes: -MAGN400T35 PO
[2021-08-09 18:30] VITALS: BP 149/86
[2021-08-09] MEDS ORDERED: ACETAMINOPHEN TAB 650MG DOSE (2X325MG) PO PRN (19:40)
[2021-08-09] MEDS ORDERED: MORPHINE 4 MG/ML 1ML VIAL/SYRINGE (J2270) IV PRN (19:40)
[2021-08-09] MEDS ORDERED: ONDANSETRON 4MG/2ML VIAL IV SCH (20:00)
[2021-08-09] MEDS ORDERED: ONDANSETRON 4MG/2ML VIAL IV PRN (21:20)
[2021-08-09] MEDS: traMADol 50 MG TAB PO PRN (21:25)
[2021-08-09] MEDS: LR 1,000 ML IV SCH (21:26)
[2021-08-09 22:00] VITALS: BP 138/83
[2021-08-09] MEDS ORDERED: MAGN400T35 PO (23:30)
[2021-08-09] MEDS ORDERED: HOME MED LIST COMPLETE! XX SCH (23:30)
[2021-08-09] MEDS ORDERED: CREO24CA PO ×2 (23:30)
[2021-08-09] MEDS ORDERED: OXYC-517 PO (23:30)
[2021-08-09] MEDS: HEPARIN SOD (PORCINE) 5000UNITS/ML 1ML VIAL/SYRINGE SQ SCH (23:32)
[2021-08-10] VITALS (7 sets, daily range): BP systolic 122–149; BP diastolic 70–85
[2021-08-10] MEDS: ceFAZolin SOD 2 GM in IV 1 EA IV SCH ×4 (00:25→22:18)
[2021-08-10] MEDS: HEPARIN SOD (PORCINE) 5000UNITS/ML 1ML VIAL/SYRINGE SQ SCH ×4 (04:20→20:48)
[2021-08-10 06:32] LABS: HEMATOCRIT 34.5 % (36.0-47.0); HEMOGLOBIN 11.4 g/dl (12.0-15.5); MEAN CORPUSCULAR HEMOGLOBIN 28.6 pg (27.0-33.0); MEAN CORPUSCULAR VOLUME 86.5 fl (80.0-96.0); PLATELET COUNT, AUTOMATED 214 10^3/uL (150-450); RED BLOOD COUNT 3.99 10^6/uL (4.00-5.40); WHITE BLOOD COUNT 3.7 10^3/uL (4.0-10.0)
[2021-08-10 07:01] LABS: BLOOD UREA NITROGEN 11 MG/DL (7-18); CALCIUM LEVEL 9.4 MG/DL (8.5-10.1); CARBON DIOXIDE LEVEL 28 MEQ/L (21-32); CHLORIDE LEVEL 108 MEQ/L (98-107); CREATININE FOR GFR 0.62 MG/DL (0.55-1.30); GLOMERULAR FILTRATION RATE > 60.0 (>51); GLUCOSE, FASTING 85 MG/DL (70-100); POTASSIUM SERUM 3.6 MEQ/L (3.5-5.1); SODIUM LEVEL 140 MEQ/L (136-145)
[2021-08-10] MEDS: traMADol 50 MG TAB PO PRN (08:05)
[2021-08-10] MEDS ORDERED: dexameTHASONE 4 MG/ML 1ML VIAL (J1100 PER 1MG) As Ordered ONE ×2 (12:15→12:16)
[2021-08-10] MEDS ORDERED: fentaNYL 250 MCG/5 ML INJECTION As Ordered ONE (12:15)
[2021-08-10] MEDS ORDERED: LIDOCAINE 2% 100MG/5ML SDV (FOR ANES.) As Ordered ONE (12:15)
[2021-08-10] MEDS ORDERED: MIDAZOLAM INJ 2MG/2ML VIAL (J2250 PER 1MG) As Ordered ONE (12:15)
[2021-08-10] MEDS ORDERED: propofoL 200 MG/20 ML VIAL As Ordered ONE (12:15)
[2021-08-10] MEDS ORDERED: ONDANSETRON 4MG/2ML VIAL As Ordered ONE (12:15)
[2021-08-10] MEDS ORDERED: BUPIVACAINE LIPOSOME/PF 1.3% 20ML VIAL (13.3MG/ML)(EXPAREL)(C9290 PER1MG) As Ordered ONE (12:44)
[2021-08-10] MEDS ORDERED: GENTAMICIN SULF 80MG/2ML VIAL As Ordered ONE (12:44)
[2021-08-10] MEDS ORDERED: METOCLOPRAMIDE INJ 10MG/2ML VIAL (J2765 PER 1) As Ordered ONE (12:50)
[2021-08-10] MEDS ORDERED: ACETAMINOPHEN 1000MG 100ML IV BTL (OFIRMEV) (J0131 PER 10MG) As Ordered ONE (13:10)
[2021-08-10] MEDS ORDERED: ePHEDrine SULFATE 25 MG/5 ML(5MG/ML) SYRINGE As Ordered ONE (13:11)
[2021-08-10] MEDS: LR 1,000 ML IV SCH (13:40)
[2021-08-10] MEDS ORDERED: CREON-24 CAPSULE PO PRN (13:45)
[2021-08-10] MEDS ORDERED: EMLA CREAM 5GM TUBE (LIDOCAINE/PRILOCAINE) TOP PRN (13:45)
[2021-08-10] MEDS ORDERED: ONDANSETRON 4 MG TAB PO PRN (13:45)
[2021-08-10] MEDS ORDERED: PERCOCET 5MG/325MG TAB PO PRN (13:50)
[2021-08-10] MEDS ORDERED: LR 1,000 ML IV SCH (13:50)
[2021-08-10] MEDS ORDERED: fentaNYL 100 MCG/2 ML INJECTION IV PRN (13:50)
[2021-08-10] MEDS ORDERED: ONDANSETRON 4MG/2ML VIAL IV PRN (13:50)
[2021-08-10] MEDS: PANTOPRAZOLE 40MG TAB (PROTONIX) PO SCH (15:25)
[2021-08-10] MEDS: ESCITALOPRAM OXALATE 10 MG TAB (LEXAPRO) PO SCH (15:25)
[2021-08-10] MEDS: ATORVASTATIN 20 MG TAB PO SCH (15:25)
[2021-08-10] MEDS: MAGNESIUM OXIDE 400MG TAB (MAG-OX) PO SCH (15:26)
[2021-08-10] MEDS: oxyCODONE 5MG TAB PO PRN ×2 (17:58→22:10)
[2021-08-10] MEDS: CREON-24 CAPSULE PO SCH (18:21)
[2021-08-10] MEDS: DOCUSATE SODIUM 100MG CAPSULE PO SCH (20:48)
[2021-08-10] MEDS ORDERED: ceFAZolin SOD 1 GM in D5W MINI-BAG PLUS 50 ML IV SCH (21:00)
[2021-08-10] MEDS ORDERED: FAMOTIDINE 20 MG TAB PO SCH (21:00)
[2021-08-10] MEDS ORDERED: NORTRIPTYLINE 25 MG CAP PO SCH (21:00)
[2021-08-11 02:00] VITALS: BP 118/66
[2021-08-11] MEDS: LR 1,000 ML IV SCH (02:39)
[2021-08-11] MEDS: oxyCODONE 5MG TAB PO PRN ×2 (04:27→12:53)
[2021-08-11 06:00] VITALS: BP 134/90
[2021-08-11] MEDS: ceFAZolin SOD 2 GM in IV 1 EA IV SCH (06:08)
[2021-08-11] MEDS: HEPARIN SOD (PORCINE) 5000UNITS/ML 1ML VIAL/SYRINGE SQ SCH (06:08)
[2021-08-11] MEDS ORDERED: FERROUS SULFATE 325MG TAB PO SCH (09:00)
[2021-08-11] MEDS: ATORVASTATIN 20 MG TAB PO SCH (09:10)
[2021-08-11] MEDS: MAGNESIUM OXIDE 400MG TAB (MAG-OX) PO SCH (09:10)
[2021-08-11] MEDS: CREON-24 CAPSULE PO SCH ×2 (09:10→12:52)
[2021-08-11] MEDS: ESCITALOPRAM OXALATE 10 MG TAB (LEXAPRO) PO SCH (09:10)
[2021-08-11] MEDS: PANTOPRAZOLE 40MG TAB (PROTONIX) PO SCH (09:10)
[2021-08-11] MEDS: DOCUSATE SODIUM 100MG CAPSULE PO SCH (09:10)
[2021-08-11 10:00] VITALS: BP 132/89
[2021-08-11] MEDS ORDERED: ROXI1TAB2 PO (11:37)
[2021-08-14] MEDS ORDERED: VITAMIN D 50,000 UNITS CAPSULE (ERGOCALCIFEROL 1.25MG) PO SCH (09:00)
== END 2021-08-11 13:19 | disposition home or self-care (01) ==
LOC: M MSPAV 17:52 → INTOOBSV 17:52
PROVIDERS: ADMIT Surgery; ATTEND Surgery
DX: C50.912 Malignant neoplasm of unspecified site of left female breast (principal); K21.9 Gastro-esophageal reflux disease without esophagitis; M54.59 Other low back pain; E78.5 Hyperlipidemia, unspecified; F32.9 Major depressive disorder, single episode, unspecified; Z79.01 Long term (current) use of anticoagulants; Z79.899 Other long term (current) drug therapy; Z92.21 Personal history of antineoplastic chemotherapy; Z91.041 Radiographic dye allergy status
CPT/HCPCS: 11971; 36415; 80048; 85027; 86900; 86901; 87070; 87426; 88300; 88302; 96361; 96365; 96366; 96372; J0131; J0690; J1100; J1580; J1644; J2250; J2405; J2765; J3010

== ENCOUNTER → 2021-08-09 | Outpatient (CLI) | payer OTHER ==
[~2021-08-09] MED LIST changes: +FAMO20TA5 PO; +MAGN400T35 PO
== END ==
LOC: M LABSMTC 09:26
PROVIDERS: ATTEND Anesthesiology
DX: Z01.812 Encounter for preprocedural laboratory examination (principal); Z20.822 Contact with and (suspected) exposure to COVID-19

== ENCOUNTER → 2021-08-11 | Outpatient (CLI) | payer OTHER ==
[~2021-08-11] MED LIST changes: +ISOVUE-370 76% 100ML VIAL As Ordered ONE; +MAGN400T35 PO
== END ==
LOC: M RAD 13:26
PROVIDERS: ATTEND Internal Medicine Hematology & Oncology
DX: C50.919 Malignant neoplasm of unspecified site of unspecified female breast (principal)
CPT/HCPCS: 70470; Q9967

== ENCOUNTER 2021-08-13 13:28 | Emergency (ER) | payer OTHER ==
[~2021-08-13] VITALS: Ht 167.6 cm; Wt 86.4 kg
[~2021-08-13 13:28] MED LIST changes: -ISOVUE-370 76% 100ML VIAL As Ordered ONE
[2021-08-13] MEDS ORDERED: methylPREDNISolone 125MG 2ML VIAL IM ONE (16:45)
[2021-08-13] MEDS ORDERED: diphenhydrAMINE 50MG/ML VIAL (J1200) IM ONE (16:45)
[2021-08-13] MEDS ORDERED: PRED20TA PO (16:49)
[2021-08-13 17:02] VITALS: BP 153/85
== END 2021-08-13 17:04 | disposition home or self-care (01) ==
LOC: M ED 13:28
DX: L50.9 Urticaria, unspecified (principal); K86.1 Other chronic pancreatitis; Z85.3 Personal history of malignant neoplasm of breast; Z92.21 Personal history of antineoplastic chemotherapy; Z91.041 Radiographic dye allergy status; Z91.048 Other nonmedicinal substance allergy status; Z79.899 Other long term (current) drug therapy
CPT/HCPCS: 96372; 99283; J1200; J2930

== ENCOUNTER → 2021-08-25 | Outpatient (CLI) | payer OTHER ==
[~2021-08-25] MED LIST changes: +PRED20TA PO
== END ==
LOC: M LABSMTC 10:07
PROVIDERS: ATTEND Anesthesiology
DX: Z01.818 Encounter for other preprocedural examination (principal); Z11.52 Encounter for screening for COVID-19

== ENCOUNTER 2021-08-30 09:52 | Day surgery (SDC) | payer OTHER ==
[~2021-08-30] VITALS: Ht 167.6 cm; Wt 89.3 kg
[~2021-08-30 09:52] MED LIST changes: +CIPROFLOXACIN 400 MG in IV 1 EA IV ONE; +LR 1,000 ML IV ONE
[2021-08-30] MEDS ORDERED: LIDOCAINE 2% 5ML JELLY UROJET As Ordered ONE (11:57)
[2021-08-30] MEDS ORDERED: CONRAY-60 60% 50ML VIAL (Q9961) As Ordered ONE (12:15)
[2021-08-30] MEDS ORDERED: propofoL 200 MG/20 ML VIAL As Ordered ONE (12:22)
[2021-08-30] MEDS ORDERED: MIDAZOLAM INJ 2MG/2ML VIAL (J2250 PER 1MG) As Ordered ONE (12:22)
[2021-08-30] MEDS ORDERED: LIDOCAINE 2% 100MG/5ML SDV (FOR ANES.) As Ordered ONE (12:22)
[2021-08-30] MEDS ORDERED: fentaNYL 100 MCG/2 ML INJECTION As Ordered ONE (12:22)
[2021-08-30] MEDS ORDERED: BACT800T5 PO (12:37)
[2021-08-30] MEDS ORDERED: PERCOCET 5MG/325MG TAB PO PRN (13:15)
[2021-08-30] MEDS ORDERED: LR 1,000 ML IV SCH (13:15)
[2021-08-30] MEDS ORDERED: ONDANSETRON 4MG/2ML VIAL IV PRN (13:15)
[2021-08-30 13:45] VITALS: BP 137/80
== END 2021-08-30 14:54 | disposition home or self-care (01) ==
LOC: M SDC 09:52
PROVIDERS: ATTEND Urology
DX: N13.5 Crossing vessel and stricture of ureter without hydronephrosis (principal); E78.5 Hyperlipidemia, unspecified; K57.92 Diverticulitis of intestine, part unspecified, without perforation or abscess without bleeding; K21.9 Gastro-esophageal reflux disease without esophagitis; F32.9 Major depressive disorder, single episode, unspecified; K44.9 Diaphragmatic hernia without obstruction or gangrene; Z85.3 Personal history of malignant neoplasm of breast; Z87.891 Personal history of nicotine dependence; Z79.899 Other long term (current) drug therapy; Z91.041 Radiographic dye allergy status
CPT/HCPCS: 52332; 74420; C2617; J2250; J3010; Q9961

== ENCOUNTER → 2021-12-10 | Outpatient (REF) | payer OTHER ==
[~2021-12-10] MED LIST changes: +CALCTAB41 PO; -CIPROFLOXACIN 400 MG in IV 1 EA IV ONE; +GABA-1171; -LR 1,000 ML IV ONE; +MULT1TAB8 PO; -ZONI100C17 PO; +ZONI100C67 PO
[2021-12-10 15:49] LABS: HEMATOCRIT 41.2 % (36.0-47.0); HEMOGLOBIN 13.1 g/dl (12.0-15.5); MEAN CORPUSCULAR HEMOGLOBIN 30.1 pg (27.0-33.0); MEAN CORPUSCULAR HGB CONC 31.8 g/dl (32.0-36.5); MEAN CORPUSCULAR VOLUME 94.7 fl (80.0-96.0); PLATELET COUNT, AUTOMATED 187 10^3/uL (150-450); RED BLOOD COUNT 4.35 10^6/uL (4.00-5.40); WHITE BLOOD COUNT 7.3 10^3/uL (4.0-10.0)
[2021-12-10 16:10] LABS: ALBUMIN 3.7 GM/DL (3.2-5.2); BILIRUBIN,TOTAL 0.2 MG/DL (0.2-1.0); CALCIUM LEVEL 9.4 MG/DL (8.8-10.2); CREATININE FOR GFR 1.02 MG/DL (0.55-1.30); GLOMERULAR FILTRATION RATE 58.8 (>45); POTASSIUM SERUM 3.9 MEQ/L (3.5-5.1); TOTAL PROTEIN 6.3 GM/DL (6.4-8.2)
== END ==
LOC: M SFHCCLAY 12:53
PROVIDERS: ATTEND Urology
DX: N28.89 Other specified disorders of kidney and ureter (principal)

== ENCOUNTER → 2021-12-10 | Outpatient (CLI) | payer OTHER | LOC: M CLY 13:03 | PROVIDERS: ATTEND Urology | DX: N28.89 Other specified disorders of kidney and ureter (principal); Z95.828 Presence of other vascular implants and grafts ==

== ENCOUNTER → 2021-12-15 | Outpatient (CLI) | payer OTHER | LOC: M LABSMTC 09:03 | PROVIDERS: ATTEND Anesthesiology | DX: Z01.812 Encounter for preprocedural laboratory examination (principal); Z20.822 Contact with and (suspected) exposure to COVID-19 ==

== ENCOUNTER → 2021-12-17 | Outpatient (CLI) | payer OTHER ==
[~2021-12-17] MED LIST changes: +MACR100C43 PO
[2021-12-17 15:44] LABS: APPEARANCE, URINE HAZY (CLEAR); BACTERIA, URINE AUTO NEGATIVE (NEGATIVE); BILIRUBIN, URINE AUTO NEGATIVE (NEGATIVE); BLOOD, URINE BLOOD 3+ (NEGATIVE); COLOR, URINE YELLOW (YELLOW); GLUCOSE, URINE (UA) AUTO NEGATIVE (NEGATIVE); KETONE, URINE AUTO NEGATIVE (NEGATIVE); LEUKOCYTE ESTERASE, URINE AUTO TRACE (NEGATIVE); MUCUS, URINE SMALL (NEGATIVE); NITRITE, URINE AUTO NEGATIVE (NEGATIVE); PROTEIN, URINE AUTO 1+ mg/dL (NEGATIVE); RBC, URINE AUTO TNTC /HPF (0-3); SPECIFIC GRAVITY URINE AUTO 1.014 (1.002-1.035); SQUAMOUS EPITHELIAL CELL UR AU 0 /HPF (0-6); UROBILINOGEN, URINE AUTO 0.2 mg/dL (0.0-2.0); WBC, URINE AUTO 4 /HPF (0-3)
== END ==
LOC: M LAB 14:47
DX: R31.9 Hematuria, unspecified (principal)

== ENCOUNTER 2021-12-20 06:03 | Day surgery (SDC) | payer OTHER ==
[~2021-12-20] VITALS: Ht 167.6 cm; Wt 92.9 kg
[~2021-12-20 06:03] MED LIST changes: +CIPROFLOXACIN 400 MG in IV 1 EA IV ONE; -MACR100C43 PO
[2021-12-20] MEDS ORDERED: LR 1,000 ML IV SCH (06:30)
[2021-12-20] MEDS ORDERED: MIDAZOLAM INJ 2MG/2ML VIAL (J2250 PER 1MG) As Ordered ONE (07:09)
[2021-12-20] MEDS ORDERED: fentaNYL 100 MCG/2 ML INJECTION As Ordered ONE (07:10)
[2021-12-20] MEDS ORDERED: dexameTHASONE 4 MG/ML 1ML VIAL (J1100 PER 1MG) As Ordered ONE (07:13)
[2021-12-20] MEDS ORDERED: propofoL 200 MG/20 ML VIAL As Ordered ONE (07:51)
[2021-12-20] MEDS ORDERED: ISOVUE-300 61% 50ML VIAL As Ordered ONE (07:57)
[2021-12-20] MEDS ORDERED: MACR100C43 PO (08:06)
[2021-12-20 08:38] VITALS: BP 139/84
[2021-12-23] MEDS ORDERED: ONDA-84 PO (13:15)
== END 2021-12-20 09:11 | disposition home or self-care (01) ==
LOC: M SDC 06:03
PROVIDERS: ATTEND Urology
DX: N13.5 Crossing vessel and stricture of ureter without hydronephrosis (principal); E78.5 Hyperlipidemia, unspecified; K57.92 Diverticulitis of intestine, part unspecified, without perforation or abscess without bleeding; K44.9 Diaphragmatic hernia without obstruction or gangrene; K21.9 Gastro-esophageal reflux disease without esophagitis; G43.909 Migraine, unspecified, not intractable, without status migrainosus; Z92.21 Personal history of antineoplastic chemotherapy; Z91.041 Radiographic dye allergy status; Z79.52 Long term (current) use of systemic steroids; Z79.899 Other long term (current) drug therapy
CPT/HCPCS: 52332; 74420; C1769; C2617; J0744; J1100; J2250; J3010; Q9967

== ENCOUNTER → 2022-01-07 | Outpatient (REF) | payer OTHER ==
[~2022-01-07] MED LIST changes: -CIPROFLOXACIN 400 MG in IV 1 EA IV ONE; +LEVO1TAB40 JT; -LEVO750T13 JT; +MACR100C43 PO
[2022-01-07 15:58] LABS: HEMATOCRIT 43.6 % (36.0-47.0); HEMOGLOBIN 14.1 g/dl (12.0-15.5); MEAN CORPUSCULAR HEMOGLOBIN 29.9 pg (27.0-33.0); MEAN CORPUSCULAR HGB CONC 32.3 g/dl (32.0-36.5); MEAN CORPUSCULAR VOLUME 92.6 fl (80.0-96.0); PLATELET COUNT, AUTOMATED 140 10^3/uL (150-450); RED BLOOD COUNT 4.71 10^6/uL (4.00-5.40); WHITE BLOOD COUNT 7.7 10^3/uL (4.0-10.0)
[2022-01-07 16:09] LABS: INR 0.92; PROTHROMBIN TIME 12.7 SECONDS (12.7-14.5)
[2022-01-07 16:10] LABS: PARTIAL THROMBOPLASTIN TIME 30.3 SECONDS (25.9-37.0)
[2022-01-07 16:14] LABS: CALCIUM LEVEL 9.9 MG/DL (8.8-10.2); CREATININE FOR GFR 1.1 MG/DL (0.55-1.30); GLOMERULAR FILTRATION RATE 53.9 (>45); POTASSIUM SERUM 4.2 MEQ/L (3.5-5.1)
== END ==
LOC: M LABDRAWC 15:46
PROVIDERS: ATTEND Internal Medicine Gastroenterology
DX: Z01.812 Encounter for preprocedural laboratory examination (principal); K86.89 Other specified diseases of pancreas

== ENCOUNTER 2022-05-10 13:09 | Emergency (ER) | payer OTHER ==
[~2022-05-10] VITALS: Ht 167.6 cm; Wt 98.3 kg
[2022-05-10 17:49] VITALS: BP 137/89
== END 2022-05-10 17:52 | disposition home or self-care (01) ==
LOC: M ED 13:09
DX: J09.X2 Influenza due to identified novel influenza A virus with other respiratory manifestations (principal); Z20.89 Contact with and (suspected) exposure to other communicable diseases; I10 Essential (primary) hypertension; E78.5 Hyperlipidemia, unspecified; Z87.01 Personal history of pneumonia (recurrent); Z86.718 Personal history of other venous thrombosis and embolism; Z79.899 Other long term (current) drug therapy; Z91.89 Other specified personal risk factors, not elsewhere classified; Z91.041 Radiographic dye allergy status

== ENCOUNTER → 2022-06-22 | Outpatient (CLI) | payer OTHER ==
[~2022-06-22] MED LIST changes: +DAILTAB; +DAILTAB PO; -GABA-1171; +GABA-1171 PO; +OXYC1CAP PO
== END ==
LOC: M LABSMTC 09:08
PROVIDERS: ATTEND Anesthesiology
DX: Z01.812 Encounter for preprocedural laboratory examination (principal); Z20.822 Contact with and (suspected) exposure to COVID-19

== ENCOUNTER → 2022-06-22 | Outpatient (CLI) | payer OTHER ==
[~2022-06-22] MED LIST changes: +MULT400T10; +PYRI1TAB5 PO
== END ==
LOC: M CLY 13:47
PROVIDERS: ATTEND Urology
DX: Z96.0 Presence of urogenital implants (principal); C50.919 Malignant neoplasm of unspecified site of unspecified female breast; Z95.828 Presence of other vascular implants and grafts; Z96.89 Presence of other specified functional implants

== ENCOUNTER → 2022-06-22 | Outpatient (REF) | payer OTHER ==
[2022-06-23 09:37] LABS: THYROID STIMULATING HORMONE 2.944 uIU/ML (0.55-4.78)
[2022-06-23 09:38] LABS: FREE T4 1.24 NG/DL (0.89-1.76)
== END ==
LOC: M LABDRAWC 09:11
PROVIDERS: ATTEND Internal Medicine Medical Oncology
DX: C50.619 Malignant neoplasm of axillary tail of unspecified female breast (principal)

== ENCOUNTER → 2022-06-22 | Outpatient (REF) | payer OTHER ==
[2022-06-22 18:13] LABS: HEMATOCRIT 43.8 % (36.0-47.0); MEAN CORPUSCULAR HEMOGLOBIN 28.9 pg (27.0-33.0); MEAN CORPUSCULAR VOLUME 90.5 fl (80.0-96.0); PLATELET COUNT, AUTOMATED 213 10^3/uL (150-450); RED BLOOD COUNT 4.84 10^6/uL (4.00-5.40); WHITE BLOOD COUNT 10.3 10^3/uL (4.0-10.0)
[2022-06-22 18:24] LABS: INR 0.91; PROTHROMBIN TIME 12.5 SECONDS (12.5-14.5)
[2022-06-22 18:31] LABS: ALKALINE PHOSPHATASE 102 U/L (46-116); ALT/SGPT 21 U/L (7.0-40); AST/SGOT 24 U/L (<34); BILIRUBIN,TOTAL 0.4 MG/DL (0.3-1.2); BLOOD UREA NITROGEN 24 MG/DL (9-23); CALCIUM LEVEL 10.5 MG/DL (8.3-10.6); CARBON DIOXIDE LEVEL 31 MMOL/L (20-31); CHLORIDE LEVEL 98 MMOL/L (98-107); CREATININE FOR GFR 0.98 MG/DL (0.55-1.30); GLOMERULAR FILTRATION RATE > 60.0 (>45); GLUCOSE, FASTING 105 MG/DL (74-106); POTASSIUM SERUM 3.9 MMOL/L (3.5-5.1); SODIUM LEVEL 137 MMOL/L (136-145); TOTAL PROTEIN 7.5 G/DL (5.7-8.2)
== END ==
LOC: M SFHCCLAY 13:37
PROVIDERS: ATTEND Family Medicine
DX: N28.89 Other specified disorders of kidney and ureter (principal); Z96.0 Presence of urogenital implants

== ENCOUNTER 2022-06-27 10:24 | Day surgery (SDC) | payer OTHER ==
[~2022-06-27] VITALS: Ht 167.6 cm; Wt 99.3 kg
[~2022-06-27 10:24] MED LIST changes: -MULT400T10; -PYRI1TAB5 PO; +ceFAZolin SOD 2 GM in IV 1 EA IV ONE
[2022-06-27] MEDS ORDERED: LR 1,000 ML IV SCH ×2 (10:40→13:20)
[2022-06-27] MEDS ORDERED: MULT400T10 (11:05)
[2022-06-27] MEDS ORDERED: propofoL 200 MG/20 ML VIAL As Ordered ONE ×2 (11:48→12:59)
[2022-06-27] MEDS ORDERED: LIDOCAINE 2% 100MG/5ML SDV (FOR ANES.) As Ordered ONE (11:48)
[2022-06-27] MEDS ORDERED: KETOROLAC 60MG 2ML VIAL As Ordered ONE (11:48)
[2022-06-27] MEDS ORDERED: fentaNYL 100 MCG/2 ML INJECTION As Ordered ONE (11:48)
[2022-06-27] MEDS ORDERED: ONDANSETRON 4MG 2ML VIAL As Ordered ONE (11:48)
[2022-06-27] MEDS ORDERED: MIDAZOLAM INJ 2MG/2ML VIAL As Ordered ONE (11:49)
[2022-06-27] MEDS ORDERED: ISOVUE-300 61% 50ML VIAL As Ordered ONE (12:46)
[2022-06-27] MEDS ORDERED: oxyCODONE 5MG TAB PO PRN (13:20)
[2022-06-27] MEDS ORDERED: fentaNYL 100 MCG/2 ML INJECTION IV PRN (13:20)
[2022-06-27] MEDS ORDERED: ONDANSETRON 4MG 2ML VIAL IV PRN (13:20)
[2022-06-27] MEDS ORDERED: HYDROMORPHONE HCL 0.5 MG/ 0.5 ML SYRINGE IV PRN (13:20)
[2022-06-27] MEDS ORDERED: OXYB5TAB10 PO (13:42)
[2022-06-27] MEDS ORDERED: MACR100C43 PO (13:42)
[2022-06-27] MEDS ORDERED: PYRI1TAB5 PO (13:42)
[2022-06-27] MEDS ORDERED: LABETALOL 100MG/20ML VIAL As Ordered ONE (13:51)
[2022-06-27] MEDS ORDERED: SUGAMMADEX SODIUM 500 MG/5 ML VIAL (BRIDION) As Ordered ONE (13:58)
[2022-06-27] MEDS ORDERED: ROCURONIUM BROMIDE 50MG/5ML VIAL As Ordered ONE (13:58)
[2022-06-27 14:42] VITALS: BP 133/70
== END 2022-06-27 14:43 | disposition home or self-care (01) ==
LOC: M SDC 10:24
PROVIDERS: ATTEND Urology
DX: R39.15 Urgency of urination (principal); N28.89 Other specified disorders of kidney and ureter; Z96.0 Presence of urogenital implants; E78.5 Hyperlipidemia, unspecified; G43.909 Migraine, unspecified, not intractable, without status migrainosus; K57.92 Diverticulitis of intestine, part unspecified, without perforation or abscess without bleeding; K21.9 Gastro-esophageal reflux disease without esophagitis; Z91.041 Radiographic dye allergy status; Z92.21 Personal history of antineoplastic chemotherapy; Z85.3 Personal history of malignant neoplasm of breast; Z79.899 Other long term (current) drug therapy; F32.A Depression, unspecified; Z79.52 Long term (current) use of systemic steroids
CPT/HCPCS: 52332; 52352; 74420; C1769; J1100; J2405

== ENCOUNTER → 2022-07-15 | Outpatient (REF) | payer OTHER ==
[~2022-07-15] MED LIST changes: +MULT400T10; +PYRI1TAB5 PO; -ceFAZolin SOD 2 GM in IV 1 EA IV ONE
[2022-07-15 13:55] LABS: BASO # 0.1 10^3/uL (0.0-0.2); BASO % 0.7 % (0.0-1.0); EOS # 0.1 10^3/uL (0.0-0.5); EOS % 1.4 % (0.0-3.0); HEMATOCRIT 40.9 % (36.0-47.0); HEMOGLOBIN 12.7 g/dl (12.0-15.5); LYMPH # 2.4 10^3/uL (1.5-5.0); LYMPH % 26.9 % (24.0-44.0); MEAN CORPUSCULAR HEMOGLOBIN 28.6 pg (27.0-33.0); MEAN CORPUSCULAR HGB CONC 31.1 g/dl (32.0-36.5); MEAN CORPUSCULAR VOLUME 92.1 fl (80.0-96.0); MONO # 0.9 10^3/uL (0.0-0.8); MONO % 9.9 % (2.0-8.0); NEUTROPHILS # 5.4 10^3/uL (1.5-8.5); PLATELET COUNT, AUTOMATED 233 10^3/uL (150-450); RED BLOOD COUNT 4.44 10^6/uL (4.00-5.40)
[2022-07-15 14:08] LABS: INR 0.95; PROTHROMBIN TIME 12.9 SECONDS (12.5-14.5)
[2022-07-15 14:20] LABS: ALBUMIN 3.6 G/DL (3.2-5.2); ALKALINE PHOSPHATASE 92 U/L (46-116); ALT/SGPT 23 U/L (7.0-40); AST/SGOT 28 U/L (<34); BILIRUBIN,TOTAL 0.2 MG/DL (0.3-1.2); BLOOD UREA NITROGEN 14 MG/DL (9-23); CALCIUM LEVEL 9.7 MG/DL (8.3-10.6); CARBON DIOXIDE LEVEL 32 MMOL/L (20-31); CHLORIDE LEVEL 104 MMOL/L (98-107); CREATININE FOR GFR 0.86 MG/DL (0.55-1.30); GLOMERULAR FILTRATION RATE > 60.0 (>45); GLUCOSE, FASTING 96 MG/DL (74-106); POTASSIUM SERUM 4.8 MMOL/L (3.5-5.1); SODIUM LEVEL 144 MMOL/L (136-145); TOTAL PROTEIN 6.6 G/DL (5.7-8.2)
== END ==
LOC: M SFHCCLAY 10:52
PROVIDERS: ATTEND Family Medicine
DX: C50.912 Malignant neoplasm of unspecified site of left female breast (principal)

== ENCOUNTER → 2022-07-27 | Outpatient (REF) | payer OTHER ==
[2022-07-27 18:20] LABS: BLOOD UREA NITROGEN 15 MG/DL (9-23); CALCIUM LEVEL 9.7 MG/DL (8.3-10.6); CARBON DIOXIDE LEVEL 30 MMOL/L (20-31); CHLORIDE LEVEL 103 MMOL/L (98-107); FREE T4 1.11 NG/DL (0.89-1.76); GLOMERULAR FILTRATION RATE > 60.0 (>45); GLUCOSE, FASTING 73 MG/DL (74-106); POTASSIUM SERUM 4.2 MMOL/L (3.5-5.1); SODIUM LEVEL 138 MMOL/L (136-145); THYROID STIMULATING HORMONE 1.652 uIU/ML (0.55-4.78)
== END ==
LOC: M SFHCCLAY 14:40
PROVIDERS: ATTEND Family Medicine
DX: N28.89 Other specified disorders of kidney and ureter (principal); D05.12 Intraductal carcinoma in situ of left breast; F32.9 Major depressive disorder, single episode, unspecified

== ENCOUNTER → 2022-07-27 | Outpatient (CLI) | payer OTHER | LOC: M RAD 09:15 | PROVIDERS: ATTEND Urology | DX: N13.30 Unspecified hydronephrosis (principal); N28.89 Other specified disorders of kidney and ureter ==

== ENCOUNTER → 2022-07-27 | Outpatient (CLI) | payer OTHER | LOC: M LABSMTC 09:11 | PROVIDERS: ATTEND Anesthesiology | DX: Z01.812 Encounter for preprocedural laboratory examination (principal); Z11.52 Encounter for screening for COVID-19 ==

== ENCOUNTER 2022-08-01 06:50 | Observation (INO) | payer OTHER ==
[~2022-08-01] VITALS: Ht 167.6 cm; Wt 100.3 kg
[2022-08-01] VITALS (8 sets, daily range): BP systolic 100–142; BP diastolic 55–100
[~2022-08-01 06:50] MED LIST changes: +ceFAZolin SOD 2 GM in IV 1 EA IV ONE
[2022-08-01] MEDS ORDERED: LR 1,000 ML IV SCH (08:20)
[2022-08-01] MEDS ORDERED: HEPARIN SOD (PORCINE) 5000UNITS/ML 1ML VIAL/SYRINGE SQ ONE (08:35)
[2022-08-01] MEDS ORDERED: fentaNYL 250 MCG/5 ML INJECTION As Ordered ONE (08:55)
[2022-08-01] MEDS ORDERED: ONDANSETRON 4MG 2ML VIAL As Ordered ONE (08:55)
[2022-08-01] MEDS ORDERED: ROCURONIUM BROMIDE 50MG/5ML VIAL As Ordered ONE (08:55)
[2022-08-01] MEDS ORDERED: LIDOCAINE 2% 100MG/5ML SDV (FOR ANES.) As Ordered ONE (08:55)
[2022-08-01] MEDS ORDERED: propofoL 200 MG/20 ML VIAL As Ordered ONE (08:55)
[2022-08-01] MEDS ORDERED: MIDAZOLAM INJ 2MG/2ML VIAL As Ordered ONE (08:56)
[2022-08-01] MEDS ORDERED: LACRILUBE (AKWA TEARS) OPHTH OINT 3.5GM As Ordered ONE (09:07)
[2022-08-01] MEDS ORDERED: BUPIVACAINE HCL 0.25% 10ML VIAL As Ordered ONE (09:36)
[2022-08-01] MEDS ORDERED: GENTAMICIN SULF 80MG/2ML VIAL As Ordered ONE (09:37)
[2022-08-01] MEDS ORDERED: BUPIVACAINE LIPOSOME/PF 1.3% 20ML VIAL (13.3MG/ML)(EXPAREL) As Ordered ONE (09:37)
[2022-08-01] MEDS ORDERED: ePHEDrine SULFATE 25 MG/5 ML(5MG/ML) SYRINGE As Ordered ONE (10:41)
[2022-08-01] MEDS ORDERED: ACETAMINOPHEN 1000MG 100ML IV BAG As Ordered ONE (11:02)
[2022-08-01] MEDS ORDERED: ONDANSETRON 4MG 2ML VIAL IV PRN ×2 (11:30→11:45)
[2022-08-01] MEDS ORDERED: ACETAMINOPHEN TAB 650MG DOSE (2X325MG) PO PRN (11:45)
[2022-08-01] MEDS ORDERED: traMADol 50 MG TAB PO PRN (11:45)
[2022-08-01] MEDS: oxyCODONE 5MG TAB PO PRN ×2 (12:31→13:03)
[2022-08-01] MEDS: fentaNYL 100 MCG/2 ML INJECTION IV PRN ×4 (12:55→13:23)
[2022-08-01] MEDS ORDERED: PERCOCET 5MG/325MG TAB PO ONE (14:30)
[2022-08-01] MEDS ORDERED: PRED20TA PO (15:24)
[2022-08-01] MEDS ORDERED: CALCTAB41 PO (15:24)
[2022-08-01] MEDS ORDERED: ONDA-84 PO (15:24)
[2022-08-01] MEDS ORDERED: ARIP1TAB4 PO (15:24)
[2022-08-01] MEDS ORDERED: ESSETAB4 PO (15:24)
[2022-08-01] MEDS ORDERED: HOME MED LIST COMPLETE! XX SCH (15:25)
[2022-08-01] MEDS: PANTOPRAZOLE 40MG TAB (PROTONIX) PO SCH (16:03)
[2022-08-01] MEDS: FAMOTIDINE 20 MG TAB PO SCH (16:04)
[2022-08-01] MEDS: PERCOCET 5MG/325MG TAB PO PRN ×2 (17:56→22:04)
[2022-08-01] MEDS ORDERED: CREON-24 CAPSULE PO SCH (18:00)
[2022-08-01] MEDS: ceFAZolin SOD 1 GM in D5W MINI-BAG PLUS 50 ML IV SCH (18:07)
[2022-08-01] MEDS ORDERED: CREON-24 CAPSULE PO PRN (18:50)
[2022-08-01] MEDS: LR 1,000 ML IV SCH (19:04)
[2022-08-01] MEDS: ATORVASTATIN 20 MG TAB PO SCH (20:39)
[2022-08-01] MEDS: ESCITALOPRAM OXALATE 10 MG TAB (LEXAPRO) PO SCH (20:40)
[2022-08-01] MEDS: predniSONE 20 MG TAB PO SCH (20:40)
[2022-08-01] MEDS: MAGNESIUM OXIDE 400MG TAB (MAG-OX) PO SCH (20:41)
[2022-08-01] MEDS: NORTRIPTYLINE 25 MG CAP PO SCH (20:41)
[2022-08-01] MEDS: DOCUSATE SODIUM 100MG CAPSULE PO SCH (20:41)
[2022-08-01] MEDS: GABAPENTIN 100 MG CAP PO SCH (20:42)
[2022-08-01] MEDS: ARIPiprazole 2 MG TAB PO SCH (20:42)
[2022-08-01] MEDS ORDERED: FAMOTIDINE 20 MG TAB PO SCH (21:00)
[2022-08-01] MEDS ORDERED: NORTRIPTYLINE 25 MG CAP PO SCH (21:00)
[2022-08-02] VITALS: BP 114/60
[2022-08-02] MEDS: LR 1,000 ML IV SCH (01:05)
[2022-08-02] MEDS: PERCOCET 5MG/325MG TAB PO PRN ×3 (02:07→10:57)
[2022-08-02] MEDS: ceFAZolin SOD 1 GM in D5W MINI-BAG PLUS 50 ML IV SCH (02:07)
[2022-08-02] MEDS: CREON-24 CAPSULE PO SCH ×2 (07:45→12:09)
[2022-08-02 08:00] VITALS: BP 135/59
[2022-08-02] MEDS: NORTRIPTYLINE 25 MG CAP PO SCH (08:30)
[2022-08-02] MEDS: PANTOPRAZOLE 40MG TAB (PROTONIX) PO SCH (08:30)
[2022-08-02] MEDS: MAGNESIUM OXIDE 400MG TAB (MAG-OX) PO SCH (08:30)
[2022-08-02] MEDS: ESCITALOPRAM OXALATE 10 MG TAB (LEXAPRO) PO SCH (08:31)
[2022-08-02] MEDS: DOCUSATE SODIUM 100MG CAPSULE PO SCH (08:31)
[2022-08-02] MEDS: ATORVASTATIN 20 MG TAB PO SCH (08:31)
[2022-08-02] MEDS: predniSONE 20 MG TAB PO SCH (08:31)
[2022-08-02] MEDS: ARIPiprazole 2 MG TAB PO SCH (08:31)
[2022-08-02] MEDS: FAMOTIDINE 20 MG TAB PO SCH (08:31)
[2022-08-02] MEDS: GABAPENTIN 100 MG CAP PO SCH (08:49)
[2022-08-02] MEDS ORDERED: PERCOCET PO (11:24)
[2022-08-02 12:00] VITALS: BP 130/62
== END 2022-08-02 13:25 | disposition home or self-care (01) ==
LOC: M SDC 06:50 → M PED 14:20
PROVIDERS: ADMIT Plastic Surgery Surgery of the Hand; ATTEND Plastic Surgery Surgery of the Hand
DX: C50.912 Malignant neoplasm of unspecified site of left female breast (principal); Z91.041 Radiographic dye allergy status
CPT/HCPCS: 19342; C1789; C9290; J0131; J0690; J1100; J1580; J1644; J2250; J2405; J3010; J7512; S0020

== ENCOUNTER → 2023-01-20 | Outpatient (CLI) | payer OTHER ==
[~2023-01-20] MED LIST changes: +ARIP1TAB4 PO; +BENA25CA4 PO; +ESSETAB4 PO; -LIDO1CRE42 TOP; +LIDO30CR18 TOP; +PRED50TA PO; -ceFAZolin SOD 2 GM in IV 1 EA IV ONE
== END ==
LOC: M RAD 08:50
PROVIDERS: ATTEND Internal Medicine Medical Oncology
DX: C50.912 Malignant neoplasm of unspecified site of left female breast (principal); M25.559 Pain in unspecified hip
CPT/HCPCS: 78306; A9503

== ENCOUNTER → 2023-04-11 | Outpatient (REF) | payer OTHER ==
[~2023-04-11] MED LIST changes: -OXYB5TAB10 PO; +OXYB5TAB11 PO; +PROM12.56 PO
[2023-04-11 17:10] LABS: BASO # 0.1 10^3/uL (0.0-0.2); BASO % 0.8 % (0.0-1.0); EOS # 0.1 10^3/uL (0.0-0.5); EOS % 1.5 % (0.0-3.0); HEMATOCRIT 43.2 % (36.0-47.0); HEMOGLOBIN 14.1 g/dl (12.0-15.5); LYMPH % 26.7 % (24.0-44.0); MEAN CORPUSCULAR HEMOGLOBIN 28.9 pg (27.0-33.0); MEAN CORPUSCULAR HGB CONC 32.6 g/dl (32.0-36.5); MEAN CORPUSCULAR VOLUME 88.5 fl (80.0-96.0); MONO # 0.7 10^3/uL (0.0-0.8); MONO % 9.1 % (2.0-8.0); NEUTROPHILS # 4.5 10^3/uL (1.5-8.5); NEUTROPHILS % 59.9 % (36.0-66.0); PLATELET COUNT, AUTOMATED 270 10^3/uL (150-450); RED BLOOD COUNT 4.88 10^6/uL (4.00-5.40); WHITE BLOOD COUNT 7.5 10^3/uL (4.0-10.0)
[2023-04-11 17:29] LABS: URIC ACID 4.6 MG/DL (3.1-7.8)
[2023-04-11 17:33] LABS: ALBUMIN 3.7 G/DL (3.2-5.2); ALKALINE PHOSPHATASE 76 U/L (46-116); ALT/SGPT 25 U/L (7.0-40); AST/SGOT 27 U/L (<34); BILIRUBIN,TOTAL 0.3 MG/DL (0.3-1.2); BLOOD UREA NITROGEN 21 MG/DL (9-23); CALCIUM LEVEL 9.7 MG/DL (8.3-10.6); CARBON DIOXIDE LEVEL 28 MMOL/L (20-31); CHLORIDE LEVEL 106 MMOL/L (98-107); GLOMERULAR FILTRATION RATE > 60.0 (>45); GLUCOSE, FASTING 106 MG/DL (74-106); POTASSIUM SERUM 4.8 MMOL/L (3.5-5.1); SODIUM LEVEL 143 MMOL/L (136-145); TOTAL PROTEIN 6.8 G/DL (5.7-8.2)
== END ==
LOC: M SFHCCLAY 10:45
PROVIDERS: ATTEND Family Medicine
DX: C50.912 Malignant neoplasm of unspecified site of left female breast (principal); E78.5 Hyperlipidemia, unspecified; K86.1 Other chronic pancreatitis; M13.10 Monoarthritis, not elsewhere classified, unspecified site

== ENCOUNTER → 2023-04-11 | Outpatient (CLI) | payer OTHER | LOC: M CLY 11:20 | PROVIDERS: ATTEND Family Medicine | DX: Z01.818 Encounter for other preprocedural examination (principal); Z95.828 Presence of other vascular implants and grafts ==

== ENCOUNTER 2023-04-18 08:36 | Observation (INO) | payer OTHER ==
[~2023-04-18] VITALS: Ht 167.6 cm; Wt 104.1 kg
[2023-04-18] MEDS ORDERED: GENTAMICIN SULF 80MG/2ML VIAL As Ordered ONE ×2 (08:47→11:51)
[2023-04-18] MEDS ORDERED: ceFAZolin SOD 2 GM in IV 1 EA IV ONE (10:00)
[2023-04-18] MEDS ORDERED: HEPARIN SOD (PORCINE) 5000UNITS/ML 1ML VIAL/SYRINGE SQ ONE (10:00)
[2023-04-18] MEDS ORDERED: ONDANSETRON 4MG 2ML VIAL As Ordered ONE (10:10)
[2023-04-18] MEDS ORDERED: ROCURONIUM BROMIDE 50MG/5ML VIAL As Ordered ONE ×2 (10:10→12:00)
[2023-04-18] MEDS ORDERED: propofoL 200 MG/20 ML VIAL As Ordered ONE (10:10)
[2023-04-18] MEDS ORDERED: LIDOCAINE 2% 100MG/5ML SDV (FOR ANES.) As Ordered ONE (10:10)
[2023-04-18] MEDS ORDERED: MIDAZOLAM INJ 2MG/2ML VIAL As Ordered ONE (10:11)
[2023-04-18] MEDS ORDERED: fentaNYL 250 MCG/5 ML INJECTION As Ordered ONE (10:11)
[2023-04-18] MEDS ORDERED: LACRILUBE (AKWA TEARS) OPHTH OINT 3.5GM As Ordered ONE (11:09)
[2023-04-18] MEDS ORDERED: ACETAMINOPHEN 1000MG 100ML IV BAG As Ordered ONE (11:27)
[2023-04-18] MEDS ORDERED: dexmedeTOMIDine (4MCG/ML)200MCG/50ML BTL (PRECEDEX) As Ordered ONE (11:39)
[2023-04-18] MEDS ORDERED: SUGAMMADEX SODIUM 500 MG/5 ML VIAL (BRIDION) As Ordered ONE (11:39)
[2023-04-18] MEDS ORDERED: ePHEDrine SULFATE 25 MG/5 ML(5MG/ML) SYRINGE As Ordered ONE ×2 (11:41→12:47)
[2023-04-18] MEDS ORDERED: PHENYLephrine 500MCG 5ML (100MCG/ML) SYRINGE As Ordered ONE (11:43)
[2023-04-18] MEDS ORDERED: HYDROmorphone HCL 2MG/ML 1ML VIAL As Ordered ONE (12:49)
[2023-04-18] MEDS ORDERED: HYDROMORPHONE HCL 0.5 MG/ 0.5 ML SYRINGE IV PRN (14:15)
[2023-04-18] MEDS ORDERED: oxyCODONE 5MG TAB PO PRN (14:15)
[2023-04-18] MEDS ORDERED: LR 1,000 ML IV SCH (14:15)
[2023-04-18] MEDS ORDERED: METOCLOPRAMIDE INJ 10MG/2ML VIAL IV PRN (14:15)
[2023-04-18] MEDS ORDERED: ONDANSETRON 4MG 2ML VIAL IV PRN (14:15)
[2023-04-18] MEDS ORDERED: diphenhydrAMINE 50MG/ML VIAL IV PRN (14:15)
[2023-04-18] MEDS ORDERED: MEPERIDINE 25 MG/ML 1ML VIAL IV PRN (14:15)
[2023-04-18] MEDS ORDERED: fentaNYL 100 MCG/2 ML INJECTION IV PRN (14:15)
[2023-04-18] MEDS ORDERED: MOM 30ML SUSPENSION UDC PO PRN (14:40)
[2023-04-18] MEDS ORDERED: ACETAMINOPHEN TAB 650MG DOSE (2X325MG) PO PRN (14:40)
[2023-04-18] MEDS ORDERED: MAALOX 30 ML SUSP *UDC PO PRN (14:40)
[2023-04-18] MEDS ORDERED: MED REC IN PROGRESS XX SCH (15:10)
[2023-04-18 15:20] VITALS: BP 121/69; TEMP 97.2; O2SAT 94
[2023-04-18 15:45] VITALS: BP 117/68; TEMP 97.8; O2SAT 93
[2023-04-18 15:52] LABS: HEMATOCRIT 39.9 % (36.0-47.0); HEMOGLOBIN 12.8 g/dl (12.0-15.5); MEAN CORPUSCULAR HEMOGLOBIN 28.8 pg (27.0-33.0); MEAN CORPUSCULAR HGB CONC 32.1 g/dl (32.0-36.5); MEAN CORPUSCULAR VOLUME 89.7 fl (80.0-96.0); PLATELET COUNT, AUTOMATED 228 10^3/uL (150-450); RED BLOOD COUNT 4.45 10^6/uL (4.00-5.40); WHITE BLOOD COUNT 8.2 10^3/uL (4.0-10.0)
[2023-04-18 16:20] LABS: BLOOD UREA NITROGEN 26 MG/DL (9-23); CALCIUM LEVEL 8.7 MG/DL (8.3-10.6); CARBON DIOXIDE LEVEL 28 MMOL/L (20-31); CHLORIDE LEVEL 103 MMOL/L (98-107); CREATININE FOR GFR 0.96 MG/DL (0.55-1.30); GLOMERULAR FILTRATION RATE > 60.0 (>45); GLUCOSE, FASTING 134 MG/DL (74-106); POTASSIUM SERUM 3.7 MMOL/L (3.5-5.1); SODIUM LEVEL 138 MMOL/L (136-145)
[2023-04-18 16:45] VITALS: BP 123/73; TEMP 98.2; O2SAT 92
[2023-04-18 17:45] VITALS: BP 122/71; TEMP 97.3; O2SAT 93
[2023-04-18] MEDS: PERCOCET 5MG/325MG TAB PO PRN ×2 (17:50→20:38)
[2023-04-18] MEDS: ceFAZolin SOD 2 GM in IV 1 EA IV SCH (17:50)
[2023-04-18] MEDS ORDERED: XIID5DRO OU (19:20)
[2023-04-18] MEDS ORDERED: MORPHINE 4 MG/ML 1ML VIAL IV ONE (19:20)
[2023-04-18] MEDS ORDERED: NYAM10003 TOP (19:20)
[2023-04-18] MEDS ORDERED: SOLI10TA PO (19:20)
[2023-04-18] MEDS ORDERED: HOME MED LIST COMPLETE! XX SCH (19:30)
[2023-04-18 20:20] VITALS: BP 99/69; TEMP 97; O2SAT 93
[2023-04-19] MEDS: PERCOCET 5MG/325MG TAB PO PRN ×3 (00:08→12:48)
[2023-04-19 01:36] VITALS: BP 107/66; TEMP 97; O2SAT 96
[2023-04-19] MEDS: ceFAZolin SOD 2 GM in IV 1 EA IV SCH ×2 (03:14→10:06)
[2023-04-19] MEDS ORDERED: MORPHINE 2 MG/ML 1ML VIAL IV ONE (03:25)
[2023-04-19] MEDS ORDERED: HEPARIN SOD (PORCINE) 5000UNITS/ML 1ML VIAL/SYRINGE SC SCH (06:00)
[2023-04-19 06:19] LABS: HEMATOCRIT 36.5 % (36.0-47.0); HEMOGLOBIN 11.8 g/dl (12.0-15.5); MEAN CORPUSCULAR HEMOGLOBIN 28.9 pg (27.0-33.0); MEAN CORPUSCULAR HGB CONC 32.3 g/dl (32.0-36.5); MEAN CORPUSCULAR VOLUME 89.5 fl (80.0-96.0); PLATELET COUNT, AUTOMATED 227 10^3/uL (150-450); RED BLOOD COUNT 4.08 10^6/uL (4.00-5.40); WHITE BLOOD COUNT 11.6 10^3/uL (4.0-10.0)
[2023-04-19 06:23] VITALS: BP 125/78; TEMP 97.2; O2SAT 96
[2023-04-19 06:43] LABS: BLOOD UREA NITROGEN 17 MG/DL (9-23); CALCIUM LEVEL 8.7 MG/DL (8.3-10.6); CARBON DIOXIDE LEVEL 29 MMOL/L (20-31); CHLORIDE LEVEL 104 MMOL/L (98-107); CREATININE FOR GFR 0.88 MG/DL (0.55-1.30); GLOMERULAR FILTRATION RATE > 60.0 (>45); GLUCOSE, FASTING 97 MG/DL (74-106); MAGNESIUM LEVEL 1.9 MG/DL (1.8-2.4); POTASSIUM SERUM 4.3 MMOL/L (3.5-5.1); SODIUM LEVEL 138 MMOL/L (136-145)
[2023-04-19] MEDS ORDERED: GABAPENTIN 100 MG CAP PO SCH (09:00)
[2023-04-19] MEDS ORDERED: FAMOTIDINE 20 MG TAB PO SCH (09:00)
[2023-04-19] MEDS ORDERED: NORTRIPTYLINE 25 MG CAP PO SCH (09:00)
[2023-04-19] MEDS ORDERED: ATORVASTATIN 20 MG TAB PO SCH (09:00)
[2023-04-19] MEDS ORDERED: PANTOPRAZOLE 40MG TAB (PROTONIX) PO SCH (09:00)
[2023-04-19] MEDS ORDERED: ARIPiprazole 2 MG TAB PO SCH (09:00)
[2023-04-19] MEDS ORDERED: ESCITALOPRAM OXALATE 10 MG TAB (LEXAPRO) PO SCH (09:00)
[2023-04-19] MEDS ORDERED: AMOX875T2 PO ×2 (09:25→10:55)
[2023-04-19] MEDS ORDERED: CREON-24 CAPSULE PO SCH (18:00)
== END 2023-04-19 13:15 | disposition home or self-care (01) ==
LOC: M SDC 08:36 → M MS5PR 08:37
PROVIDERS: ADMIT Student in an Organized Health Care Education/Training Program; ATTEND Student in an Organized Health Care Education/Training Program
DX: N65.0 Deformity of reconstructed breast (principal); Z90.13 Acquired absence of bilateral breasts and nipples; Z85.3 Personal history of malignant neoplasm of breast; E78.5 Hyperlipidemia, unspecified; Z92.21 Personal history of antineoplastic chemotherapy; K21.9 Gastro-esophageal reflux disease without esophagitis; K57.92 Diverticulitis of intestine, part unspecified, without perforation or abscess without bleeding; F32.A Depression, unspecified; G43.909 Migraine, unspecified, not intractable, without status migrainosus; Z79.899 Other long term (current) drug therapy; D64.9 Anemia, unspecified; Z91.041 Radiographic dye allergy status
CPT/HCPCS: 11970; 19370; 36415; 80048; 83735; 85027; 87635; 88300; 88304; 96365; 96366; 96372; 96375; C9290; J0131; J0665; J0690; J1100; J1170; J1580; J2250; J2371; J2405; J3010; L8600

== ENCOUNTER → 2023-04-26 | Outpatient (REF) | payer OTHER ==
[~2023-04-26] MED LIST changes: +AMOX875T2 PO; +NYAM10003 TOP; +SOLI10TA PO; +XIID5DRO OU
[2023-04-26 18:56] LABS: BASO # 0.1 10^3/uL (0.0-0.2); BASO % 0.7 % (0.0-1.0); EOS # 0.2 10^3/uL (0.0-0.5); EOS % 1.8 % (0.0-3.0); HEMATOCRIT 38.3 % (36.0-47.0); HEMOGLOBIN 11.9 g/dl (12.0-15.5); LYMPH # 2.3 10^3/uL (1.5-5.0); LYMPH % 23.3 % (24.0-44.0); MEAN CORPUSCULAR HEMOGLOBIN 28.4 pg (27.0-33.0); MEAN CORPUSCULAR HGB CONC 31.1 g/dl (32.0-36.5); MEAN CORPUSCULAR VOLUME 91.4 fl (80.0-96.0); MONO % 10.1 % (2.0-8.0); NEUTROPHILS # 5.9 10^3/uL (1.5-8.5); NEUTROPHILS % 60.6 % (36.0-66.0); PLATELET COUNT, AUTOMATED 311 10^3/uL (150-450); RED BLOOD COUNT 4.19 10^6/uL (4.00-5.40); WHITE BLOOD COUNT 9.7 10^3/uL (4.0-10.0)
[2023-04-26 19:11] LABS: ALBUMIN 3.2 G/DL (3.2-5.2); BILIRUBIN,TOTAL 0.4 MG/DL (0.3-1.2); CALCIUM LEVEL 9.1 MG/DL (8.3-10.6); CREATININE FOR GFR 1.04 MG/DL (0.55-1.30); GLOMERULAR FILTRATION RATE 57.4 (>45); POTASSIUM SERUM 4.4 MMOL/L (3.5-5.1); TOTAL PROTEIN 6.4 G/DL (5.7-8.2)
== END ==
LOC: M SFHCCLAY 11:00
PROVIDERS: ATTEND Family Medicine
DX: K21.9 Gastro-esophageal reflux disease without esophagitis (principal); K86.1 Other chronic pancreatitis

== ENCOUNTER → 2023-06-27 | Outpatient (REF) | payer OTHER ==
[2023-06-27 18:09] LABS: LIPASE 36 U/L (12-53)
[2023-06-27 18:10] LABS: C REACTIVE PROTEIN QUANTITATIV < 0.40 MG/DL (<1.0)
[2023-06-27 18:11] LABS: AMYLASE 81 U/L (30-118)
== END ==
LOC: M LABDRAWC 17:07
PROVIDERS: ATTEND Internal Medicine Gastroenterology
DX: K86.89 Other specified diseases of pancreas (principal); K21.9 Gastro-esophageal reflux disease without esophagitis; E16.2 Hypoglycemia, unspecified; K31.84 Gastroparesis

== ENCOUNTER → 2023-07-26 | Outpatient (REF) | payer OTHER ==
[~2023-07-26] MED LIST changes: -OXYB5TAB11 PO; +OXYB5TAB14 PO
[2023-07-26 18:21] LABS: HEMATOCRIT 45.3 % (36.0-47.0); HEMOGLOBIN 14.5 g/dl (12.0-15.5); MEAN CORPUSCULAR VOLUME 87.6 fl (80.0-96.0); PLATELET COUNT, AUTOMATED 251 10^3/uL (150-450); RED BLOOD COUNT 5.17 10^6/uL (4.00-5.40); WHITE BLOOD COUNT 7.9 10^3/uL (4.0-10.0)
[2023-07-26 18:55] LABS: CORTISOL AM 26.3 UG/DL (4.3-22.4)
[2023-07-26 18:56] LABS: ALBUMIN 3.6 G/DL (3.2-5.2); ALKALINE PHOSPHATASE 85 U/L (46-116); ALT/SGPT 31 U/L (7.0-40); AST/SGOT 25 U/L (<34); BILIRUBIN,TOTAL 0.3 MG/DL (0.3-1.2); BLOOD UREA NITROGEN 19 MG/DL (9-23); CALCIUM LEVEL 9.4 MG/DL (8.3-10.6); CARBON DIOXIDE LEVEL 29 MMOL/L (20-31); CHLORIDE LEVEL 107 MMOL/L (98-107); CREATININE FOR GFR 0.93 MG/DL (0.55-1.30); GLOMERULAR FILTRATION RATE > 60.0 (>45); GLUCOSE, FASTING 97 MG/DL (74-106); MAGNESIUM LEVEL 1.8 MG/DL (1.8-2.4); POTASSIUM SERUM 4.5 MMOL/L (3.5-5.1); SODIUM LEVEL 140 MMOL/L (136-145); TOTAL PROTEIN 6.9 G/DL (5.7-8.2)
[2023-07-26 18:57] LABS: FREE T4 0.95 NG/DL (0.89-1.76); PTH INTACT 69.9 PG/ML (18.5-88.0); THYROID STIMULATING HORMONE 5.324 uIU/ML (0.55-4.78)
[2023-07-26 18:58] LABS: TOTAL 25(OH) VITAMIN D 69.7 NG/ML (20.0-100.0)
== END ==
LOC: M SFHCCLAY 09:33
PROVIDERS: ATTEND Family Medicine
DX: K31.84 Gastroparesis (principal); C50.912 Malignant neoplasm of unspecified site of left female breast; K86.1 Other chronic pancreatitis; G47.19 Other hypersomnia; R53.82 Chronic fatigue, unspecified

== ENCOUNTER → 2023-08-14 | Outpatient (CLI) | payer OTHER ==
[~2023-08-14] MED LIST changes: +ISOVUE-300 61% 100ML VIAL As Ordered ONE; +LIDOCAINE 1% MDV 20ML VIAL As Ordered ONE; +methylPREDNISolone SUSP 40MG/ML 1ML VIAL (DEPO MEDROL) As Ordered ONE
== END ==
LOC: M RAD 10:18
PROVIDERS: ATTEND Physician Assistant Surgical
DX: M19.012 Primary osteoarthritis, left shoulder (principal)
CPT/HCPCS: 20610; 77002; J1030; Q9967

== ENCOUNTER → 2023-08-16 | Outpatient (CLI) | payer OTHER ==
[~2023-08-16] MED LIST changes: -ISOVUE-300 61% 100ML VIAL As Ordered ONE; -LIDOCAINE 1% MDV 20ML VIAL As Ordered ONE; -methylPREDNISolone SUSP 40MG/ML 1ML VIAL (DEPO MEDROL) As Ordered ONE
== END ==
LOC: M SLEEP HO 10:29
PROVIDERS: ATTEND Family Medicine
DX: G47.19 Other hypersomnia (principal)

== ENCOUNTER → 2023-10-05 | Outpatient (REF) | payer OTHER ==
[~2023-10-05] MED LIST changes: -OXYC1CAP PO; +OXYC1CAP2 PO
== END ==
LOC: M LABDRAWC 11:58
PROVIDERS: ATTEND Internal Medicine
DX: K21.9 Gastro-esophageal reflux disease without esophagitis (principal); R13.10 Dysphagia, unspecified; K31.84 Gastroparesis; K86.89 Other specified diseases of pancreas

== ENCOUNTER → 2023-11-30 | Outpatient (REF) | payer OTHER ==
[~2023-11-30] MED LIST changes: -AZEL0.055; +AZEL1SPR4
[2023-11-30 13:52] LABS: HEMATOCRIT 44.2 % (36.0-47.0); HEMOGLOBIN 14.2 g/dl (12.0-15.5); MEAN CORPUSCULAR HEMOGLOBIN 28.5 pg (27.0-33.0); MEAN CORPUSCULAR HGB CONC 32.1 g/dl (32.0-36.5); MEAN CORPUSCULAR VOLUME 88.6 fl (80.0-96.0); PLATELET COUNT, AUTOMATED 220 10^3/uL (150-450); RED BLOOD COUNT 4.99 10^6/uL (4.00-5.40); WHITE BLOOD COUNT 8.1 10^3/uL (4.0-10.0)
[2023-11-30 14:24] LABS: BLOOD UREA NITROGEN 21 MG/DL (9-23); CALCIUM LEVEL 9.8 MG/DL (8.3-10.6); CARBON DIOXIDE LEVEL 34 MMOL/L (20-31); CHLORIDE LEVEL 105 MMOL/L (98-107); GLOMERULAR FILTRATION RATE > 60.0 (>45); GLUCOSE, FASTING 113 MG/DL (74-106); POTASSIUM SERUM 5.2 MMOL/L (3.5-5.1); SODIUM LEVEL 142 MMOL/L (136-145)
== END ==
LOC: M SFHCCLAY 10:34
PROVIDERS: ATTEND Family Medicine
DX: C50.912 Malignant neoplasm of unspecified site of left female breast (principal); K31.84 Gastroparesis; K86.1 Other chronic pancreatitis; G47.19 Other hypersomnia; R53.82 Chronic fatigue, unspecified; N28.89 Other specified disorders of kidney and ureter

== ENCOUNTER → 2023-12-01 | Outpatient (CLI) | payer OTHER | LOC: M CLY 15:07 | PROVIDERS: ATTEND Family Medicine | DX: Z01.818 Encounter for other preprocedural examination (principal) ==

== ENCOUNTER 2024-01-04 10:39 | Observation (INO) | payer OTHER ==
[~2024-01-04] VITALS: Ht 167.6 cm; Wt 103.7 kg
[2024-01-04] VITALS (7 sets, daily range): BP systolic 101–145; BP diastolic 51–84; TEMP 96.8–97.5; O2SAT 92–96
[~2024-01-04 10:39] MED LIST changes: +LIDOCAINE 2% 100MG/5ML SDV (FOR ANES.) As Ordered ONE; +MIDAZOLAM INJ 2MG/2ML VIAL As Ordered ONE; +ONDANSETRON 4MG 2ML VIAL As Ordered ONE; +PIPE4.5F IV; +ROCURONIUM BROMIDE 50MG/5ML VIAL As Ordered ONE; +SUGAMMADEX SODIUM 500 MG/5 ML VIAL (BRIDION) As Ordered ONE; -ZOSY1SOL6 IV; +dexmedeTOMIDine (4MCG/ML)200MCG/50ML BTL (PRECEDEX) As Ordered ONE; +fentaNYL 250 MCG/5 ML INJECTION As Ordered ONE; +propofoL 200 MG/20 ML VIAL As Ordered ONE
[2024-01-04] MEDS ORDERED: PRUC1TAB PO (11:17)
[2024-01-04] MEDS ORDERED: LUBI24CA PO (11:17)
[2024-01-04] MEDS ORDERED: HOME MED LIST COMPLETE! XX SCH (11:20)
[2024-01-04] MEDS: LR 1,000 ML IV SCH ×2 (11:28→18:20)
[2024-01-04] MEDS: HEPARIN SOD (PORCINE) 5000UNITS/ML 1ML VIAL/SYRINGE SQ ONE (13:08)
[2024-01-04] MEDS: ceFAZolin SOD 2 GM in IV 1 EA IV ONE (13:12)
[2024-01-04] MEDS ORDERED: ePHEDrine SULFATE 25 MG/5 ML(5MG/ML) SYRINGE As Ordered ONE (13:27)
[2024-01-04] MEDS: ceFAZolin 1GM VIAL As Ordered ONE (13:44)
[2024-01-04] MEDS: GENTAMICIN SULF 80MG/2ML VIAL As Ordered ONE (13:45)
[2024-01-04] MEDS: LIDOCAINE 1% MDV 20ML VIAL As Ordered ONE (13:46)
[2024-01-04] MEDS: EPINEPHrine 1MG/ML INJ 30ML MD-VIAL As Ordered ONE (13:46)
[2024-01-04] MEDS ORDERED: ACETAMINOPHEN 1000MG 100ML IV BAG As Ordered ONE (13:50)
[2024-01-04] MEDS ORDERED: HYDROmorphone HCL 2MG/ML 1ML VIAL As Ordered ONE (15:40)
[2024-01-04] MEDS ORDERED: MORPHINE 2 MG/ML 1ML VIAL IV PRN (16:15)
[2024-01-04] MEDS ORDERED: ONDANSETRON 4MG 2ML VIAL IV PRN ×2 (16:15→16:45)
[2024-01-04] MEDS ORDERED: fentaNYL 100 MCG/2 ML INJECTION IV PRN (16:15)
[2024-01-04] MEDS ORDERED: NYSTATIN 100,000 UNITS/GM TOPICAL PWD 15GM TOP PRN (16:45)
[2024-01-04] MEDS ORDERED: traMADol 50 MG TAB PO PRN (16:45)
[2024-01-04] MEDS: oxyCODONE 5MG TAB PO PRN (17:11)
[2024-01-04] MEDS ORDERED: PERCOCET 5MG/325MG TAB PO PRN (17:40)
[2024-01-04] MEDS: PERCOCET 5MG/325MG TAB PO PRN (18:21)
[2024-01-04] MEDS: ceFAZolin SOD 2 GM in IV 1 EA IV SCH (20:16)
[2024-01-04] MEDS: HEPARIN SOD (PORCINE) 5000UNITS/ML 1ML VIAL/SYRINGE SQ SCH (20:17)
[2024-01-05 02:28] VITALS: BP 133/95; TEMP 97.2; O2SAT 95
[2024-01-05] MEDS: ACETAMINOPHEN TAB 650MG DOSE (2X325MG) PO PRN (02:35)
[2024-01-05 08:18] VITALS: BP 120/68; TEMP 97.3; O2SAT 97
[2024-01-05] MEDS: DOCUSATE SODIUM 100MG CAPSULE PO SCH (08:56)
[2024-01-05] MEDS: ATORVASTATIN 20 MG TAB PO SCH (08:56)
[2024-01-05] MEDS: FAMOTIDINE 20 MG TAB PO SCH (08:56)
[2024-01-05] MEDS: ESCITALOPRAM OXALATE 10 MG TAB (LEXAPRO) PO SCH (08:57)
[2024-01-05] MEDS: NORTRIPTYLINE 25 MG CAP PO SCH (09:06)
[2024-01-05] MEDS: ARIPiprazole 2 MG TAB PO SCH (09:07)
[2024-01-05 12:00] VITALS: BP 162/79; TEMP 97.7; O2SAT 98
[2024-01-05] MEDS ORDERED: AUGM500T34 PO (12:02)
[2024-01-06] MEDS ORDERED: VITAMIN D 50,000 UNITS CAPSULE (ERGOCALCIFEROL 1.25MG) PO SCH (09:00)
== END 2024-01-05 13:25 | disposition home or self-care (01) ==
LOC: M SDC 10:39 → M ED INP 16:45 → M MS5PR 17:25
PROVIDERS: ADMIT Plastic Surgery Surgery of the Hand; ATTEND Plastic Surgery Surgery of the Hand
DX: Z42.1 Encounter for breast reconstruction following mastectomy (principal); N65.0 Deformity of reconstructed breast; Z85.3 Personal history of malignant neoplasm of breast; Z90.13 Acquired absence of bilateral breasts and nipples; Z98.82 Breast implant status; Z92.21 Personal history of antineoplastic chemotherapy; K22.70 Barrett's esophagus without dysplasia; K21.9 Gastro-esophageal reflux disease without esophagitis; F32.A Depression, unspecified; K57.92 Diverticulitis of intestine, part unspecified, without perforation or abscess without bleeding; G43.909 Migraine, unspecified, not intractable, without status migrainosus; Z91.041 Radiographic dye allergy status; Z79.899 Other long term (current) drug therapy
CPT/HCPCS: 11970; 15771; 19370; 88300; 88302; 96365; 96366; 96372; J0131; J0171; J0665; J0690; J1100; J1170; J1580; J2250; J2405; J3010; L8600

== ENCOUNTER → 2024-01-19 | Outpatient (CLI) | payer OTHER ==
[~2024-01-19] MED LIST changes: +AUGM500T34 PO; -LIDOCAINE 2% 100MG/5ML SDV (FOR ANES.) As Ordered ONE; +LUBI24CA PO; -MIDAZOLAM INJ 2MG/2ML VIAL As Ordered ONE; -ONDANSETRON 4MG 2ML VIAL As Ordered ONE; +PRUC1TAB PO; -ROCURONIUM BROMIDE 50MG/5ML VIAL As Ordered ONE; -SUGAMMADEX SODIUM 500 MG/5 ML VIAL (BRIDION) As Ordered ONE; -dexmedeTOMIDine (4MCG/ML)200MCG/50ML BTL (PRECEDEX) As Ordered ONE; -fentaNYL 250 MCG/5 ML INJECTION As Ordered ONE; -propofoL 200 MG/20 ML VIAL As Ordered ONE
== END ==
LOC: M RAD 11:53
PROVIDERS: ATTEND Urology
DX: N13.30 Unspecified hydronephrosis (principal)

== ENCOUNTER → 2024-04-25 | Outpatient (CLI) | payer OTHER ==
[~2024-04-25] MED LIST changes: -LACT10SO3; +LACT10SO94; +NAPR-1405 PO; -NAPR500T6 PO
== END ==
LOC: M CLY 10:04
PROVIDERS: ATTEND Family Medicine
DX: M25.551 Pain in right hip (principal); M25.531 Pain in right wrist

== ENCOUNTER → 2024-04-25 | Outpatient (CLI) | payer OTHER | LOC: M CLY 10:16 | PROVIDERS: ATTEND Family Medicine | DX: M16.11 Unilateral primary osteoarthritis, right hip (principal); M19.031 Primary osteoarthritis, right wrist ==

== ENCOUNTER → 2024-05-29 | Outpatient (REF) | payer OTHER ==
[2024-05-29 11:58] LABS: HEMATOCRIT 44.4 % (36.0-47.0); HEMOGLOBIN 14.1 g/dl (12.0-15.5); MEAN CORPUSCULAR HEMOGLOBIN 27.5 pg (27.0-33.0); MEAN CORPUSCULAR HGB CONC 31.8 g/dl (32.0-36.5); MEAN CORPUSCULAR VOLUME 86.5 fl (80.0-96.0); PLATELET COUNT, AUTOMATED 188 10^3/uL (150-450); RED BLOOD COUNT 5.13 10^6/uL (4.00-5.40); WHITE BLOOD COUNT 7.6 10^3/uL (4.0-10.0)
[2024-05-29 12:31] LABS: ALBUMIN 3.3 G/DL (3.2-5.2); ALKALINE PHOSPHATASE 108 U/L (35-104); ALT/SGPT 13 U/L (7.0-40); AST/SGOT 16 U/L (<34); BILIRUBIN,TOTAL 0.2 MG/DL (0.3-1.2); BLOOD UREA NITROGEN 18 MG/DL (9-23); CALCIUM LEVEL 9.8 MG/DL (8.3-10.6); CARBON DIOXIDE LEVEL 31 MMOL/L (20-31); CHLORIDE LEVEL 106 MMOL/L (98-107); CHOLESTEROL LEVEL 191 MG/DL (<200); CHOLESTEROL RISK RATIO 2.99 (<5); CREATININE FOR GFR 0.91 MG/DL (0.55-1.30); GLOMERULAR FILTRATION RATE > 60.0 (>45); GLUCOSE, FASTING 105 MG/DL (74-106); HDL CHOLESTEROL 63.7 MG/DL (>40); LDL CHOLESTEROL 101.7 MG/DL (<100); NON-HDL-C 127.3 MG/DL; POTASSIUM SERUM 4.6 MMOL/L (3.5-5.1); SODIUM LEVEL 139 MMOL/L (136-145); TRIGLYCERIDES LEVEL 128 MG/DL (<150)
[2024-05-29 12:35] LABS: THYROID STIMULATING HORMONE 4.247 uIU/ML (0.55-4.78)
[2024-05-29 12:36] LABS: HEMOGLOBIN A1c 6.1 % (4.0-6.0)
[2024-05-29 12:37] LABS: FREE T4 1.08 NG/DL (0.89-1.76)
== END ==
LOC: M SFHCCLAY 07:38
PROVIDERS: ATTEND Nurse Practitioner Family
DX: K31.84 Gastroparesis (principal); C50.912 Malignant neoplasm of unspecified site of left female breast; K86.1 Other chronic pancreatitis; G47.19 Other hypersomnia; R53.82 Chronic fatigue, unspecified; Z23 Encounter for immunization; M54.42 Lumbago with sciatica, left side; K85.90 Acute pancreatitis without necrosis or infection, unspecified; E78.2 Mixed hyperlipidemia

== ENCOUNTER → 2024-09-30 | Outpatient (CLI) | payer OTHER ==
[~2024-09-30] MED LIST changes: -AMIT24CA7 PO; +LUBI24CA32 PO
== END ==
LOC: M WHC 11:13
PROVIDERS: ATTEND Specialist
DX: N63.24 Unspecified lump in the left breast, lower inner quadrant (principal); Z90.13 Acquired absence of bilateral breasts and nipples; Z85.3 Personal history of malignant neoplasm of breast

== ENCOUNTER → 2024-10-02 | Outpatient (REF) | payer OTHER ==
[~2024-10-02] MED LIST changes: +LIFI1DRO4 OU; -PRED50TA PO; +PRED50TA57 PO; -XIID5DRO OU
[2024-10-02 17:41] LABS: BASO # 0.1 10^3/uL (0.0-0.2); BASO % 0.8 % (0.0-1.0); EOS # 0.1 10^3/uL (0.0-0.5); EOS % 1.5 % (0.0-3.0); HEMATOCRIT 39.8 % (36.0-47.0); HEMOGLOBIN 12.3 g/dl (12.0-15.5); LYMPH # 2.6 10^3/uL (1.5-5.0); LYMPH % 32.2 % (24.0-44.0); MEAN CORPUSCULAR HEMOGLOBIN 27.2 pg (27.0-33.0); MEAN CORPUSCULAR HGB CONC 30.9 g/dl (32.0-36.5); MEAN CORPUSCULAR VOLUME 87.9 fl (80.0-96.0); MONO # 0.8 10^3/uL (0.0-0.8); MONO % 9.9 % (2.0-8.0); NEUTROPHILS # 4.4 10^3/uL (1.5-8.5); PLATELET COUNT, AUTOMATED 244 10^3/uL (150-450); RED BLOOD COUNT 4.53 10^6/uL (4.00-5.40)
== END ==
LOC: M LABDRAWC 17:11
PROVIDERS: ATTEND Internal Medicine Medical Oncology
DX: C50.912 Malignant neoplasm of unspecified site of left female breast (principal)

== ENCOUNTER → 2024-10-08 | Outpatient (CLI) | payer OTHER | LOC: M WHC 08:55 | PROVIDERS: ATTEND Surgery | DX: Z85.3 Personal history of malignant neoplasm of breast (principal) ==

== ENCOUNTER → 2024-10-17 | Outpatient (CLI) | payer OTHER ==
[2024-10-17 08:34] VITALS: TEMP 98.3
[2024-10-17 09:49] VITALS: BP 130/74; O2SAT 98
== END ==
LOC: M WHCPRO 08:35
PROVIDERS: ATTEND Surgery
DX: N63.24 Unspecified lump in the left breast, lower inner quadrant (principal); N63.23 Unspecified lump in the left breast, lower outer quadrant; Z85.3 Personal history of malignant neoplasm of breast
CPT/HCPCS: 10035; 19083; 38505; 88305; A4648

== ENCOUNTER → 2025-01-15 | Outpatient (REF) | payer OTHER ==
[2025-01-15 19:00] LABS: BASO # 0.0 10^3/uL (0.0-0.2); BASO % 0.5 % (0.0-1.0); EOS # 0.1 10^3/uL (0.0-0.5); EOS % 1.1 % (0.0-3.0); LYMPH # 2.5 10^3/uL (1.5-5.0); LYMPH % 30.3 % (24.0-44.0); MONO # 0.6 10^3/uL (0.0-0.8); MONO % 7.0 % (2.0-8.0); NEUTROPHILS # 5.0 10^3/uL (1.5-8.5); NEUTROPHILS % 60.4 % (36.0-66.0); PLATELET COUNT, AUTOMATED 210 10^3/uL (150-450)
[2025-01-16 00:42] LABS: ALT/SGPT 14.0 U/L (7.0-40); AST/SGOT 20.0 U/L (<34); CALCIUM LEVEL 9.5 MG/DL (8.3-10.6); CARBON DIOXIDE LEVEL 29.0 MMOL/L (20-31); CHLORIDE LEVEL 104.0 MMOL/L (98-107); CREATININE FOR GFR 1.12 MG/DL (0.55-1.30); GLOMERULAR FILTRATION RATE 55.3 (>45); POTASSIUM SERUM 4.3 MMOL/L (3.5-5.1); SODIUM LEVEL 142.0 MMOL/L (136-145)
== END ==
LOC: M LABDRAWC 17:30
PROVIDERS: ATTEND Internal Medicine Medical Oncology
DX: C50.919 Malignant neoplasm of unspecified site of unspecified female breast (principal)

== ENCOUNTER 2025-02-03 10:30 | Emergency (ER) | payer OTHER ==
[~2025-02-03] VITALS: Ht 167.6 cm; Wt 101.4 kg
[2025-02-03 11:11] LABS: BASO # 0.1 10^3/uL (0.0-0.2); BASO % 0.7 % (0.0-1.0); EOS # 0.1 10^3/uL (0.0-0.5); EOS % 1.6 % (0.0-3.0); LYMPH # 2.1 10^3/uL (1.5-5.0); LYMPH % 29.3 % (24.0-44.0); MONO # 0.6 10^3/uL (0.0-0.8); MONO % 8.7 % (2.0-8.0); NEUTROPHILS # 4.1 10^3/uL (1.5-8.5); NEUTROPHILS % 59.0 % (36.0-66.0); PLATELET COUNT, AUTOMATED 277 10^3/uL (150-450)
[2025-02-03 11:41] LABS: ALT/SGPT 14 U/L (7.0-40); AST/SGOT 24 U/L (<34); CALCIUM LEVEL 9.2 MG/DL (8.3-10.6); CARBON DIOXIDE LEVEL 28 MMOL/L (20-31); CHLORIDE LEVEL 104 MMOL/L (98-107); CREATININE FOR GFR 0.82 MG/DL (0.55-1.30); GLOMERULAR FILTRATION RATE 80.3 (>45); POTASSIUM SERUM 4.4 MMOL/L (3.5-5.1); SODIUM LEVEL 142 MMOL/L (136-145)
[2025-02-03] MEDS ORDERED: AMOX500T2 PO (11:42)
[2025-02-03] MEDS ORDERED: HOME MED LIST COMPLETE! XX SCH (11:45)
[2025-02-03 13:15] VITALS: BP 147/65; TEMP 98.6; O2SAT 96
== END 2025-02-03 13:45 | disposition home or self-care (01) ==
LOC: M ED 10:30
DX: R07.9 Chest pain, unspecified (principal); F32.A Depression, unspecified; E78.5 Hyperlipidemia, unspecified; M54.50 Low back pain, unspecified; Z87.891 Personal history of nicotine dependence; Z91.041 Radiographic dye allergy status; Z91.048 Other nonmedicinal substance allergy status; Z79.2 Long term (current) use of antibiotics; Z79.899 Other long term (current) drug therapy; Z79.02 Long term (current) use of antithrombotics/antiplatelets

== ENCOUNTER → 2025-04-21 | Outpatient (REF) | payer OTHER ==
[~2025-04-21] MED LIST changes: +AMOX500T2 PO
[2025-04-21 18:21] LABS: ALT/SGPT 12.0 U/L (7.0-40); AST/SGOT 19.0 U/L (<34); CALCIUM LEVEL 9.6 MG/DL (8.3-10.6); CARBON DIOXIDE LEVEL 30.0 MMOL/L (20-31); CHLORIDE LEVEL 102.0 MMOL/L (98-107); CHOLESTEROL LEVEL 188.0 MG/DL (<200); CHOLESTEROL RISK RATIO 2.5 (<5); CREATININE FOR GFR 0.88 MG/DL (0.55-1.30); GLOMERULAR FILTRATION RATE 73.8 (>45); LDL CHOLESTEROL 72.8 MG/DL (<100); MAGNESIUM LEVEL 1.8 MG/DL (1.8-2.4); NON-HDL-C 112.8 MG/DL; POTASSIUM SERUM 5.0 MMOL/L (3.5-5.1); SODIUM LEVEL 141.0 MMOL/L (136-145); TRIGLYCERIDES LEVEL 200.0 MG/DL (<150)
[2025-04-21 18:36] LABS: ESTIMATED AVERAGE GLUCOSE 140.0 MG/DL (60-110)
== END ==
LOC: M SFHCCLAY 11:11
PROVIDERS: ATTEND Physician Assistant
DX: F32.9 Major depressive disorder, single episode, unspecified (principal); E78.5 Hyperlipidemia, unspecified; K21.9 Gastro-esophageal reflux disease without esophagitis; K31.84 Gastroparesis; Z85.3 Personal history of malignant neoplasm of breast; G89.29 Other chronic pain

== ENCOUNTER → 2025-04-24 | Outpatient (REF) | payer OTHER ==
[2025-04-24 18:00] LABS: PLATELET COUNT, AUTOMATED 257 10^3/uL (150-450)
[2025-04-24 18:25] LABS: IRON (FE) 22.0 UG/DL (50-170); PERCENT SATURATION 5.7 % (13.2-45.0)
[2025-04-24 18:28] LABS: FREE T4 1.08 NG/DL (0.89-1.76)
== END ==
LOC: M SFHCCLAY 11:33
PROVIDERS: ATTEND Physician Assistant
DX: R06.09 Other forms of dyspnea (principal)